=== PATIENT | female | born 1965 | race African-American/Black ===

== ENCOUNTER 2017-12-06 20:09 | Inpatient (IN) | END 2017-12-16 16:55 | disposition home or self-care (01) | DRG 304 ==

== ENCOUNTER 2018-03-16 12:54 | Inpatient (IN) | payer OTHER ==
[~2018-03-16] VITALS: Ht 167.6 cm; Wt 55.0 kg
[~2018-03-16 12:54] MED LIST: BEN25 PO; CALC0.2511 PO; FURO40TA4 PO; LABE100T7 PO; LEVE-5 PO; NIFE30TA2 PO; PANT40TA3 PO; QUET300T2 PO; SEVE800T7 PO
--- NOTE | 2018-03-16 13:00 | ERD ---
ER Documentation Chief Complaint Chief Complaint Abdominal pain HPI 52-year-old female diabetic, hypertensive, hyperlipidemic with history of end- stage renal failure on hemodialysis Thursday/Thursday/Thursday, ascites status post paracentesis yesterday, depression, seizure disorder, ascites status post paracentesis yesterday and gastritis presents to the ED via rescue ambulance complaining of abdominal pain. This is the same pain the patient has been having over the last several weeks. Pain is sharp, crampy and radiates to the back. Diarrhea but no nausea or vomiting. No hematemesis, hematochezia or melena. No relieving or exacerbating factors. Denies chest pain, palpitations or shortness of breath. No leg pain or swelling. No fevers or chills. Patient was hospitalized 03/01/2018 and signed out AGAINST MEDICAL ADVICE this morning. She now returns complaining of worsening pain and wants to be readmitted. ROS All systems reviewed and are negative except as per history of present illness. Medications Home Meds Active Scripts Diphenhydramine Hcl* (Benadryl*) 25 Mg Cap, 25 MG PO Q6H PRN for ITCHING, #30 CAP Prov:BLAKE MORALES 12/10/17 Labetalol Hcl* (Labetalol Hcl*) 100 Mg Tablet, 200 MG PO BID for 30 Days, TAB Prov:BLAKE MORALES 12/10/17 Nifedipine (Procardia Xl) 30 Mg Tab.er.24, 30 MG PO DAILY for 30 Days, TAB Prov:BLAKE MORALES 12/10/17 Sevelamer Carbonate* (Renvela*) 800 Mg Tablet, 1600 MG PO WITH MEALS for 30 Days, TAB Prov:BLAKE MORALES 12/10/17 Reported Medications Calcitriol* (Calcitriol*) 0.25 Mcg Capsule, 0.25 MG PO DAILY for 30 Days TAKE ONE CAPSULE BY MOUTH EVERYDAY 03/01/18 Quetiapine Fumarate* (Seroquel*) 300 Mg Tablet, 300 MG PO DAILY, TAB 12/07/17 Pantoprazole* (Protonix*) 40 Mg Tablet.dr, 40 MG PO AC BREAKFAST, TAB 12/07/17 Furosemide* (Furosemide*) 40 Mg Tablet, 40 MG PO BID, TAB 12/07/17 Levetiracetam* (Keppra*) 500 Mg Tablet, 500 MG PO BID, TAB 12/07/17 Allergies Allergies: Coded Allergies: No Known Allergy (Unverified , 03/16/18) PMhx/Soc Reviewed in chart. As per HPI. History of Surgery: Yes (CS) Anesthesia Reaction: No Hx Neurological Disorder: No Hx Respiratory Disorders: No Hx Cardiac Disorders: Yes (HTN,) Hx Psychiatric Problems: Yes (Bipolar) Hx Miscellaneous Medical Probl: Yes Hx Alcohol Use: No Hx Substance Use: No Hx Tobacco Use: Yes FmHx No family history relevant to presenting complaint Physical Exam Vitals Vital Signs Date Temp Pulse Resp B/P (MAP) Pulse Ox O2 O2 Flow FiO2 Time Delivery Rate 03/16/18 98.2 80 16 168/82 98 12:59 (110) Physical Exam Const: Alert, moderate distress, Ill appearing Head: Atraumatic Eyes: Normal Conjunctiva ENT: Normal External Ears, Nose and Mouth. Neck: Full range of motion. Nontender, no JVD. Resp: Breath sounds are equal and clear to auscultation bilaterally Cardio: Regular rate and rhythm, no murmurs Abd: Soft, diffusely tender but no rebound or guarding. Drainage bag in the right lower quadrant placed post paracentesis for leakage. Skin: No petechiae or rashes Back: No midline or flank tenderness Ext: No cyanosis, or edema. AV shunt LUE with palpable thrill. Neur: Awake and alert. No focal deficit observed. Psych: Anxious, cooperative. Result Diagram: 03/17/18 0629 03/17/18 0629 Results 24 hrs Laboratory Tests Test 03/16/18 13:45 Sodium Level 142 mmol/L Potassium Level 5.2 mmol/L Chloride Level 100 mmol/L Carbon Dioxide Level 30 mmol/L Anion Gap 12 Blood Urea Nitrogen 27 mg/dl Creatinine 3.22 mg/dl Est Glomerular Filtrat Rate mL/min 18 mL/min Glucose Level 123 mg/dl Calcium Level 9.3 mg/dl Total Bilirubin 0.0 mg/dl Direct Bilirubin 0.00 mg/dl Indirect Bilirubin 0.0 mg/dl Aspartate Amino Transf (AST/SGOT) 27 IU/L Alanine Aminotransferase (ALT/SGPT) 18 IU/L Alkaline Phosphatase 152 IU/L Total Protein 6.7 g/dl Albumin 3.2 g/dl Globulin 3.50 g/dl Albumin/Globulin Ratio 0.91 Lipase 420 U/L Current Medications Medications Dose Sig/Rolando Start Time Status Last (Trade) Ordered Route PRN Stop Time Admin Dose Reason Admin 0.4 mg ONCE STAT 03/16/18 DC 03/16/18 Hydromorphone IV 13:22 14:22 HCl 03/16/18 (Dilaudid) 13:30 25 mg ONCE ONCE 03/16/18 DC 03/16/18 Diphenhydrami IV 13:30 14:22 ne HCl 03/16/18 (Benadryl) 13:31 Ondansetron 4 mg BRIDGE ORDER 03/16/18 DC 03/16/18 HCl (Zofran PRN IV 14:00 14:22 Inj) NAUSEA AND/OR 03/16/18 VOMITING 18:25 650 mg ER BRIDGE 03/16/18 DC Acetaminophen PRN PO MILD 14:00 (Tylenol PAIN(1-3)OR 03/17/18 Tab) ELEVATED TEMP 02:33 Procedures/MDM DOCUMENTS REVIEWED: ED nurse, prior ED, prior records IMAGING: Chest AP portable: Cardiac silhouette is normal. The costophrenic angles are clear. Atelectasis at the bases but no effusions or infiltrates. No mediastinal widening. My interpretation. MEDICAL DECISION MAKIN-year-old female diabetic, hypertensive, hyperlipidemic with history of end-stage renal failure on hemodialysis Thursday/Thursday/Thursday, ascites status post paracentesis yesterday, depression, seizure disorder, ascites status post paracentesis yesterday and gastritis presents to the ED via rescue ambulance complaining of abdominal pain. Patient signed out AGAINST MEDICAL ADVICE this morning because she had to go home and take care of her family matter although nursing notation documents that is because she did not receive her Benadryl on time. Nonetheless she is returning now requesting readmission. CBC significant for microcytic, hypochromic anemia but no leukocytosis, consistent with prior results. Chemistry reveals borderline hyperkalemia and stable elevated BUN/CR. LFT's unremarkable. Elevated lipase. Chest x-ray negative for pneumonia, volume overload, pulmonary edema or CHF. This patient has a workup in progress, including GI consultation, hence advanced imaging is deferred. Broad differential is considered but there is no evidence of perforated viscus or acute peritonitis at this time. Pain treated with Dilaudid 0.4 mg IV. Admit to med/surg for further evaluation and management. PATIENT CARE TRANSITIONED: Time: 13:40, Dr. Megan Tinoco Counseled patient regarding diagnosis, diagnostic results and plan for admission. Departure Diagnosis: Primary Impression: Acute generalized abdominal pain Additional Impressions: End stage renal disease on dialysis Ascites Ascites type: other type Qualified Codes: R18.8 - Other ascites Diabetes mellitus type 2 in nonobese Depression Depression Type: unspecified Qualified Codes: F32.9 - Major depressive dis order, single episode, unspecified Hypertension Hypertension type: essential hypertension Qualified Codes: I10 - Essential (primary) hypertension Serum lipase elevation Condition: Serious WILMER KIMBLE MD Mar 16, 2018 13:00
[2018-03-16] MEDS ORDERED: HYDROmorphONE 1 MG/ML SYG IV STA (13:22)
[2018-03-16] MEDS ORDERED: DIPHENHYDRAMINE 50 MG INJ IV ONE (13:30)
[2018-03-16] MEDS ORDERED: ACETAMINOPHEN 325 MG TAB PO PRN (14:00)
[2018-03-16] MEDS ORDERED: ONDANSETRON 4 MG INJ IV PRN (14:00)
[2018-03-16 16:33] VITALS: BP 178/84; PULSE 85; RESP 17
[2018-03-16 17:08] VITALS: Ht 167.6 cm; Wt 55.0 kg
--- NOTE | 2018-03-16 18:24 | NUR ---
Admission orders received from Dr. Tinoco. Patient will be transferred to [facility] for continuity of care. Of note patient left [facility] this morning from [facility] per nurses report [facility] patient was not happy that she could not get her Benadryl. Dr. Tinoco aware that patient will transfer to [facility]
[2018-03-16] MEDS ORDERED: morphine 2 MG INJ IV PRN (18:30)
[2018-03-16 19:37] VITALS: BP 188/78; PULSE 86; RESP 18
[2018-03-16] MEDS: DIPHENHYDRAMINE 50 MG INJ IV PRN (20:04)
--- NOTE | 2018-03-16 20:27 | NUR ---
RN Notes: Called Dr. Tinoco regarding patient's blood pressure of 188/78 TN 86, Dr. Tinoco ordered Clonidine 0.1mg Q6H PRN for SBP > 160. This nurse also asked Dr. Tinoco if he wants to reconcile the home meds, per Dr. Tinoco continue all medication. Patient is also diabetic and got an order for Accucheck ACHS moderate sliding scale. Will continue to monitor patient.
--- NOTE | 2018-03-16 20:45 | NUR ---
RN NOTES: Morphine 2mg IV is on shortage and was informed by pharmacist that it will need to be changed to Morphine liquid. Informed patient about change.
[2018-03-16] MEDS ORDERED: morphine LIQ (10 MG/5 ML) CUP PO PRN (21:00)
[2018-03-16] MEDS ORDERED: LABETALOL 100 MG TAB PO SCH (21:00)
[2018-03-16] MEDS ORDERED: GLUCAGON 1 MG INJ IM PRN (21:30)
[2018-03-16] MEDS ORDERED: GLUCOSE GEL 15 GRAM TUBE BUCCAL PRN (21:30)
[2018-03-16] MEDS ORDERED: GLUCOSE GEL 15 GRAM TUBE PO PRN ×2 (21:30)
[2018-03-16] MEDS ORDERED: DEXTROSE 50% 50 ML SYRINGE IV PRN ×2 (21:30)
[2018-03-16 21:36] VITALS: BP 193/89; PULSE 85; RESP 18
[2018-03-16] MEDS: LABETALOL 200 MG TAB PO SCH (21:46)
[2018-03-16] MEDS: FUROSEMIDE 40 MG TAB PO SCH (21:47)
[2018-03-16] MEDS: LEVETIRACETAM 500 MG TAB PO SCH (21:50)
[2018-03-16] MEDS: INSULIN ASPART [NOVOLOG] 3 ML PEN SC SCH (21:51)
--- NOTE | 2018-03-16 22:20 | NUR ---
Patient still complaining of abdominal pain 12/30, per patient the morphine liquid did not work. Informed Dr. Tinoco and informed him about patient still in pain, Dr. Tinoco ordered Morphine 4mg IV Q4H PRN. Will continue to monitor patient.
[2018-03-16] MEDS ORDERED: morphine 4 MG/ML VIAL IV PRN (22:30)
[2018-03-16] MEDS: ONDANSETRON 4 MG INJ IV PRN (22:40)
[2018-03-16 23:38] VITALS: BP 171/92; PULSE 84; RESP 16
--- NOTE | 2018-03-16 23:52 | NUR ---
RN notes: Patient will be transferred to [facility]. Gave report to AGUSTO Lucia for continuity of care.
[2018-03-17 00:28] VITALS: BP 166/82; PULSE 83; RESP 18
--- NOTE | 2018-03-17 00:32 | NUR ---
Pt arrived on [facility] in no acute distress. Vitals taken BP 166/82 HR 83. Patient oriented to room, bed, and call light. Reiterated the schedule or morphine and benadryl using care board and tool mechanic. Needs attended.
[2018-03-17] MEDS: DIPHENHYDRAMINE 50 MG INJ IV PRN ×3 (02:03→16:43)
[2018-03-17 02:11] VITALS: BP 166/90; PULSE 81; RESP 18
[2018-03-17] MEDS: morphine SULFATE/PF (2 MG/2 ML) SYG IV PRN ×3 (02:44→13:54)
[2018-03-17] MEDS: LOPERAMIDE 2 MG CAP PO PRN (04:01)
[2018-03-17] MEDS: PANTOPRAZOLE (EC) 40 MG TAB PO SCH (06:32)
--- NOTE | 2018-03-17 06:48 | NUR ---
Shift Summary Pt had several episodes of diarrhea during shift. Specimen sent for C diff analysis to lab. Dr. Tinoco was contacted for PRN medication for diarrhea. Order received and carried out. Per Dr. Tinoco, tailing hand will see the patient today to arrange hemodialysis. Patient received IV morphine twice during shift on this unit. Care board updated to reflect changes. Will endorse care to next shift.
[2018-03-17 07:44] VITALS: BP 173/89; PULSE 92; RESP 18
--- NOTE | 2018-03-17 07:52 | CONS ---
Date/Time of Note Date/Time of Note DATE: 03/17/18 TIME: 07:33 Assessment/Plan Assessment/Plan Chief Complaint/Hosp Course 52 yo female with ESRD and diarrhea left AMA 03/16 and returned with abdominal pain. 1. Abdominal pain -lipase mildly elevated 03/16 420 2. Diarrhea -O/P negative. Stool cx pending 3. Mildly elevated lipase with mid abd pain radiating to back 4. Mild generalized small and large bowel wall thickening which per CT 03/01 could represent third spacing. 5. Hemorrhoids per pt 6. Mild hepatomegaly 7. Anemia, acute -Ferritin high, Iron wnl, TIBC low, B12 wnl, folate wnl, FOB negative -no evidence of GI bleeding 8. End stage renal disease on HD 9. Cardiomegaly with mild lower lung pulmonary edema with small left effusion and mild diffuse ascites 10. Anasarca and ascites -03/15 paracentesis removed 2.9 liters 11. Diabetes 12. Hypertension 13. Elevated alk phos Plan: Questran 1 packet QD US of upper abdomen C diff and stool cx Clear liquid diet PPI Monitor LFTS, lipase and amylase Pt examined and plan of care discussed with Dr. Webb Consultation Date/Type/Reason Admit Date/Time Mar 16, 2018 at 14:01 Hx of Present Illness 52 yo female with h/o DM, htn, HLD, ESRD on dialysis, depression, seizure disorder and gastritis left AMA yesterday and returned a few hours later with SOB and abdominal pain. Pt began having diarrhea again 03/15 although it had resolved from initial admission on 03/01. Pt describes her abd pain as sharp and cramping, mid abdomen radiating to her back. This is the same pain she has c/o during her stay before she left AMA. She received paracentesis twice previously (before AMA) for ascites secondary to ESRD. Her LFTs, pancreatic enzymes have been wnl but on return yesterday her lipase is elevated 420, amylase wnl. Alk phos on 03/11 was elevated but came down to wnl until 03/15 it was 158 and now 152. No melena or hematochezia. No N/V. Denies CP. CXR: 1. Scarring or atelectasis at the lung bases with right worse than left. 2. Otherwise unremarkable chest radiograph. CT of abd/pelvis from 03/01: There is cardiomegaly with mild lower lung pulmonary edema along with a small left effusion with mild diffuse ascites and anasarca and this likely represent third spacing of fluid. Mild generalized small and large bowel wall thickening could represent edema related to third spacing. There is a fecal filled colon without obstruction or grossly visible appendicitis. Atherosclerotic disease is present. No renal or ureteral calculi with no evidence of hydronephrosis. Rounded hypodensity in the left upper pole kidney could represent a hemorrhagic cyst and can be correlated with MRI.. Mild hepatomegaly. Past Medical History Medications Current Medications Ondansetron HCl (Zofran Inj) 4 mg Q6H PRN IV NAUSEA AND/OR VOMITING Last administered on 03/16/18at 22:40; Admin Dose 4 MG; Start 03/16/18 at 18:30 Diphenhydramine HCl (Benadryl) 25 mg Q6H PRN IV ITCHING Last administered on 03/17/18at 02:03; Admin Dose 25 MG; Start 03/16/18 at 18:30 Clonidine (Catapres) 0.1 mg Q6H PRN PO ELEVATED BLOOD PRESSURE Last administered on 03/16/18at 21:47; Admin Dose 0.1 MG; Start 03/16/18 at 20:30 Insulin Aspart (Novolog Insulin Pen) NOVOLOG *MODERATE* ALGORITHM WITH MEALS BEDTIME SC ; Start 03/16/18 at 22:00 Calcitriol (Rocaltrol) 0.25 mcg DAILY PO ; Start 03/17/18 at 09:00 Furosemide (Lasix) 40 mg BID PO Last administered on 03/16/18at 21:47; Admin Dose 40 MG; Start 03/16/18 at 21:00 Levetiracetam (Keppra) 500 mg BID PO Last administered on 03/16/18at 21:50; Admin Dose 500 MG; Start 03/16/18 at 21:00 Nifedipine (Procardia Xl) 30 mg DAILY PO ; Start 03/17/18 at 09:00 Pantoprazole (Protonix Tab) 40 mg AC BREAKFAST PO Last administered on 03/17/18at 06:32; Admin Dose 40 MG; Start 03/17/18 at 07:00 Quetiapine Fumarate (Seroquel) 300 mg DAILY PO ; Start 03/17/18 at 09:00 Sevelamer Carbonate (Renvela) 1.6 gm WITH MEALS PO ; Start 03/17/18 at 08:00 Miscellaneous Information 1 ea NOTE XX ; Start 03/16/18 at 21:30 Glucose (Glutose) 15 gm Q15M PRN PO DECREASED GLUCOSE; Start 03/16/18 at 21:30 Glucose (Glutose) 22.5 gm Q15M PRN PO DECREASED GLUCOSE; Start 03/16/18 at 21:30 Dextrose (D50w Syringe) 25 ml Q15M PRN IV DECREASED GLUCOSE; Start 03/16/18 at 21:30 Dextrose (D50w Syringe) 50 ml Q15M PRN IV DECREASED GLUCOSE; Start 03/16/18 at 21:30 Glucagon (Glucagen) 1 mg Q15M PRN IM DECREASED GLUCOSE; Start 03/16/18 at 21:30 Glucose (Glutose) 15 gm Q15M PRN BUCCAL DECREASED GLUCOSE; Start 03/16/18 at 21:30 Labetalol HCl (Normodyne) 200 mg BID PO Last administered on 03/16/18at 21:46; Admin Dose 200 MG; Start 03/16/18 at 22:00 Morphine Sulfate (morphine SULFATE (PF)) 4 mg Q4H PRN IV SEVERE PAIN LEVEL 7-10 Last administered on 03/17/18at 06:29; Admin Dose 4 MG; Start 03/17/18 at 02:00 Loperamide HCl (Imodium Cap) 2 mg Q6H PRN PO diarrhea Last administered on 03/17/18at 04:01; Admin Dose 2 MG; Start 03/17/18 at 03:30 Allergies: Coded Allergies: No Known Allergy (Unverified , 03/16/18) Past Surgical History Past Surgical Hx: other Social History Smoking Status: Former smoker Exam/Review of Systems Vital Signs Vitals Vital Signs Date Temp Pulse Resp B/P (MAP) Pulse Ox O2 O2 Flow FiO2 Time Delivery Rate 03/17/18 98.6 81 18 166/90 98 Room Air 02:11 (115) Exam Constitutional: alert, oriented Psych: no complaints Head: normocephalic Eyes: PERRL ENMT: mucosa pink and moist Respiratory: clear to auscultation, diminished breath sounds Cardiovascular: regular rate and rhythm Gastrointestinal: ascites, distended, tender (mid abdomen) Musculoskeletal: nl gait and stance Neurological: nl mental status Medications Medications Current Medications Ondansetron HCl (Zofran Inj) 4 mg Q6H PRN IV NAUSEA AND/OR VOMITING Last administered on 03/16/18at 22:40; Admin Dose 4 MG; Start 03/16/18 at 18:30 Diphenhydramine HCl (Benadryl) 25 mg Q6H PRN IV ITCHING Last administered on 03/17/18at 02:03; Admin Dose 25 MG; Start 03/16/18 at 18:30 Clonidine (Catapres) 0.1 mg Q6H PRN PO ELEVATED BLOOD PRESSURE Last administered on 03/16/18at 21:47; Admin Dose 0.1 MG; Start 03/16/18 at 20:30 Insulin Aspart (Novolog Insulin Pen) NOVOLOG *MODERATE* ALGORITHM WITH MEALS BEDTIME SC ; Start 03/16/18 at 22:00 Calcitriol (Rocaltrol) 0.25 mcg DAILY PO ; Start 03/17/18 at 09:00 Furosemide (Lasix) 40 mg BID PO Last administered on 03/16/18at 21:47; Admin Dose 40 MG; Start 03/16/18 at 21:00 Levetiracetam (Keppra) 500 mg BID PO Last administered on 03/16/18at 21:50; Admin Dose 500 MG; Start 03/16/18 at 21:00 Nifedipine (Procardia Xl) 30 mg DAILY PO ; Start 03/17/18 at 09:00 Pantoprazole (Protonix Tab) 40 mg AC BREAKFAST PO Last administered on 03/17/18at 06:32; Admin Dose 40 MG; Start 03/17/18 at 07:00 Quetiapine Fumarate (Seroquel) 300 mg DAILY PO ; Start 03/17/18 at 09:00 Sevelamer Carbonate (Renvela) 1.6 gm WITH MEALS PO ; Start 03/17/18 at 08:00 Miscellaneous Information 1 ea NOTE XX ; Start 03/16/18 at 21:30 Glucose (Glutose) 15 gm Q15M PRN PO DECREASED GLUCOSE; Start 03/16/18 at 21:30 Glucose (Glutose) 22.5 gm Q15M PRN PO DECREASED GLUCOSE; Start 03/16/18 at 21:30 Dextrose (D50w Syringe) 25 ml Q15M PRN IV DECREASED GLUCOSE; Start 03/16/18 at 21:30 Dextrose (D50w Syringe) 50 ml Q15M PRN IV DECREASED GLUCOSE; Start 03/16/18 at 21:30 Glucagon (Glucagen) 1 mg Q15M PRN IM DECREASED GLUCOSE; Start 03/16/18 at 21:30 Glucose (Glutose) 15 gm Q15M PRN BUCCAL DECREASED GLUCOSE; Start 03/16/18 at 21:30 Labetalol HCl (Normodyne) 200 mg BID PO Last administered on 03/16/18at 21:46; Admin Dose 200 MG; Start 03/16/18 at 22:00 Morphine Sulfate (morphine SULFATE (PF)) 4 mg Q4H PRN IV SEVERE PAIN LEVEL 7-10 Last administered on 03/17/18at 06:29; Admin Dose 4 MG; Start 03/17/18 at 02:00 Loperamide HCl (Imodium Cap) 2 mg Q6H PRN PO diarrhea Last administered on 03/17/18at 04:01; Admin Dose 2 MG; Start 03/17/18 at 03:30 ROBERT GOODRICH Mar 17, 2018 07:43
[2018-03-17] MEDS: INSULIN ASPART [NOVOLOG] 3 ML PEN SC SCH ×4 (08:00→20:37)
[2018-03-17] MEDS: CALCITRIOL 0.25 MCG CAP PO SCH (08:24)
[2018-03-17] MEDS: NIFEdipine (XL) 30 MG TAB PO SCH (08:24)
[2018-03-17] MEDS: LEVETIRACETAM 500 MG TAB PO SCH ×2 (08:24→20:36)
[2018-03-17] MEDS: LABETALOL 200 MG TAB PO SCH ×2 (08:24→20:36)
[2018-03-17] MEDS: SEVELAMER CARBONATE 0.8 GM PKT PO SCH ×3 (08:25→17:08)
[2018-03-17] MEDS: FUROSEMIDE 40 MG TAB PO SCH ×2 (08:25→20:37)
[2018-03-17] MEDS: QUETIAPINE 100 MG TAB PO SCH (08:25)
--- NOTE | 2018-03-17 10:51 | NUR ---
Dialysis Confirmation: Spoke with Eva at [facility]; Confirmation # [id number]
--- NOTE | 2018-03-17 11:34 | PN ---
DATE: 03/17/2018 SUBJECTIVE: The patient yesterday was discharged however was readmitted in the evening due to abdomi nal pain. The patient is currently stable, receiving pain medications. No other events noted. OBJECTIVE: VITAL SIGNS: Blood pressure is 173/89, respiration 18, pulse 92, temperature 98.9. HEENT: Head is normocephalic. NECK: Supple. HEART: Regular rate. LUNGS: Show diminished breath sounds at base. ABDOMEN: Soft, nontender to palpation. No rebound or guarding. EXTREMITIES: Negative for clubbing, cyanosis, no edema. DERMATOLOGIC: No rashes. MUSCULOSKELETAL: No joint effusion. NEUROLOGIC: No change in exam. MEDICATIONS: Have been reviewed. LABORATORY DATA: Has been reviewed. Patient has sodium 141, potassium 5.9, BUN 32, creatinine 4.26. ASSESSMENT AND PLAN: 1. End stage renal disease. Plan is for dialysis today. We will dialyze for 3 hours 2k bath, calci um 2.5. 2. Hyperkalemia. Continue dialysis on low potassium bath. 3. Volume overload, improved. Continue ultrafiltration dialysis. 4. Ascites. The patient is status post paracentesis. Continue to monitor. Follow up with GI. 5. Diabetes. Continue current insulin regimen. 6. Anemia. Continue to monitor hemoglobin and hematocrit levels. 7. Mineral bone disorder, monitor calcium and phosphorus levels. 8. Encephalopathy, resolved. 9. Seizure disorder. Continue Keppra. 10. Hypertension. Continue current blood pressure regimen. 11. Gastritis. Continue proton pump inhibitor. 12. Anxiety disorder. Dictated By: SHILO REICH/NTS Conf#: [id number] DID#: [id number] CC: JF KAISER MD;*EndCC*
--- NOTE | 2018-03-17 12:07 | HP ---
Date/Time of Note Date/Time of Note DATE: 03/17/18 TIME: 12:02 Assessment/Plan VTE Prophylaxis Risk [place] [facility] [place] risk: 2 SCD applied (from [facility] [place] No SCD contraindicated: other Pharmacological prophylaxis: LMWH Lines/Catheters IV Catheter Type (from [facility]): Saline Lock Urinary Cath still in place: No Assessment/Plan Hospital Course 1) fluid overload - related to renal failure 2) renal failure - hemodialysis per nephrology 3) abdominal pain - work up and treatment per GI 4) diabetes - monitor blood sugar, insulin coverage as needed Result Diagram: 03/17/18 0629 03/17/18628 Results 24hrs Laboratory Tests Test 03/16/18 13:45 03/16/18 14:08 03/16/18 21:51 03/17/18 06:29 Sodium Level 142 141 Potassium Level 5.2 H 5.9 H Chloride Level 100 101 Carbon Dioxide 30 27 Level Anion Gap 12 13 Blood Urea 27 H 32 H Nitrogen Creatinine 3.22 H 4.26 #H Est Glomerular 18 L 13 L Filtrat Rate mL/min Glucose Level 123 108 Calcium Level 9.3 9.1 Total Bilirubin 0.0 L Direct Bilirubin 0.00 Indirect 0.0 Bilirubin Aspartate Amino 27 Transf (AST/SGOT ) Alanine 18 Aminotransferase (ALT/SGPT) Alkaline 152 H Phosphatase Total Protein 6.7 Albumin 3.2 L Globulin 3.50 H Albumin/Globulin 0.91 Ratio Lipase 420 H White Blood 7.6 11.5 #H Count Red Blood Count 3.66 L 3.36 L Hemoglobin 9.4 L 8.4 L Hematocrit 29.7 L 27.2 L Mean Corpuscular 81.1 L 81.0 L Volume Mean Corpuscular 25.7 L 25.0 L Hemoglobin Mean Corpuscular 31.6 L 30.9 L Hemoglobin Shannan nt Red Cell 18.7 H 18.6 H Distribution Width Platelet Count 303 321 Mean Platelet 8.9 9.5 Volume Immature 0.100 0.400 Granulocytes % Neutrophils % 65.3 82.1 H Lymphocytes % 18.9 8.9 L Monocytes % 10.9 6.6 Eosinophils % 3.2 1.6 Basophils % 1.6 0.4 Nucleated Red 0.0 0.0 Blood Cells % Immature 0.010 0.050 H Granulocytes # Neutrophils # 4.9 9.5 H Lymphocytes # 1.4 1.0 Monocytes # 0.8 0.8 Eosinophils # 0.2 0.2 Basophils # 0.1 0.1 Nucleated Red 0.0 0.0 Blood Cells # Bedside Glucose 98 Test 03/17/18 08:22 Bedside Glucose 114 HPI/ROS Admit Date/Time Admit Date/Time Mar 16, 2018 at 14:01 Hx of Present Illness Patient with diabetes, seizure disorder, renal failure, gastritis is here after leaving AMA from the hospital just hours earlier with the same complaints of abdominal pain and fluid overload. PMH/Family/Social Past Medical History Medical History: coronary artery disease, diabetes, GERD, hypertension, renal disease Medications Current Medications Ondansetron HCl (Zofran Inj) 4 mg Q6H PRN IV NAUSEA AND/OR VOMITING Last administered on 03/16/18 22:40; Admin Dose 4 MG; Start 03/16/18 at 18:30 Diphenhydramine HCl (Benadryl) 25 mg Q6H PRN IV ITCHING Last administered on 03/17/18 08:23; Admin Dose 25 MG; Start 03/16/18 at 18:30 Clonidine (Catapres) 0.1 mg Q6H PRN PO ELEVATED BLOOD PRESSURE Last administered on 03/16/18 21:47; Admin Dose 0.1 MG; Start 03/16/18 at 20:30 Insulin Aspart (Novolog Insulin Pen) NOVOLOG *MODERATE* ALGORITHM WITH MEALS BEDTIME SC ; Start 03/16/18 at 22:00 Calcitriol (Rocaltrol) 0.25 mcg DAILY PO Last administered on 03/17/18 08:24; Admin Dose 0.25 MCG; Start 03/17/18 at 09:00 Furosemide (Lasix) 40 mg BID PO Last administered on 03/17/18 08:25; Admin Dose 40 MG; Start 03/16/18 at 21:00 Levetiracetam (Keppra) 500 mg BID PO Last administered on 03/17/18 08:24; Admin Dose 500 MG; Start 03/16/18 at 21:00 Nifedipine (Procardia Xl) 30 mg DAILY PO Last administered on 03/17/18 08:24; Admin Dose 30 MG; Start 03/17/18 at 09:00 Pantoprazole (Protonix Tab) 40 mg AC BREAKFAST PO Last administered on 03/17/18at 06:32; Admin Dose 40 MG; Start 03/17/18 at 07:00 Quetiapine Fumarate (Seroquel) 300 mg DAILY PO Last administered on 03/17/18at 08:25; Admin Dose 300 MG; Start 03/17/18 at 09:00 Sevelamer Carbonate (Renvela) 1.6 gm WITH MEALS PO Last administered on 03/17/18at 08:25; Admin Dose 1.6 GM; Start 03/17/18 at 08:00 Miscellaneous Information 1 ea NOTE XX ; Start 03/16/18 at 21:30 Glucose (Glutose) 15 gm Q15M PRN PO DECREASED GLUCOSE; Start 03/16/18 at 21:30 Glucose (Glutose) 22.5 gm Q15M PRN PO DECREASED GLUCOSE; Start 03/16/18 at 21:30 Dextrose (D50w Syringe) 25 ml Q15M PRN IV DECREASED GLUCOSE; Start 03/16/18 at 21:30 Dextrose (D50w Syringe) 50 ml Q15M PRN IV DECREASED GLUCOSE; Start 03/16/18 at 21:30 Glucagon (Glucagen) 1 mg Q15M PRN IM DECREASED GLUCOSE; Start 03/16/18 at 21:30 Glucose (Glutose) 15 gm Q15M PRN BUCCAL DECREASED GLUCOSE; Start 03/16/18 at 21:30 Labetalol HCl (Normodyne) 200 mg BID PO Last administered on 03/17/18at 08:24; Admin Dose 200 MG; Start 03/16/18 at 22:00 Morphine Sulfate (morphine SULFATE (PF)) 4 mg Q4H PRN IV SEVERE PAIN LEVEL 7-10 Last administered on 03/17/18at 06:29; Admin Dose 4 MG; Start 03/17/18 at 02:00 Loperamide HCl (Imodium Cap) 2 mg Q6H PRN PO diarrhea Last administered on 03/17/18at 04:01; Admin Dose 2 MG; Start 03/17/18 at 03:30 Cholestyramine Resin (Questran) 1 pkt DAILY PO ; Start 03/17/18 at 09:00 Coded Allergies: No Known Allergy (Unverified , 03/16/18) Past Surgical History Past Surgical Hx: other Family History Significant Family History: no pertinent family hx Social History Smoking Status: Former smoker Exam/Review of Systems Vital Signs Vitals Vital Signs Date Temp Pulse Resp B/P (MAP) Pulse Ox O2 O2 Flow FiO2 Time Delivery Rate 03/17/18 98.9 92 18 173/89 98 Room Air 07:44 (117) Exam Constitutional: well developed Head: normocephalic, atraumatic Neck: supple Respiratory: diminished breath sounds Cardiovascular: regular rate and rhythm Gastrointestinal: soft, non-tender Genitourinary - Female: nl adnexae Extremities: normal pulses JF KAISER Mar 17, 2018 12:07
[2018-03-17 14:00] VITALS: BP 140/75; PULSE 85; RESP 20
[2018-03-17] MEDS: ACETAMINOPHEN 325 MG TAB PO PRN (14:02)
--- NOTE | 2018-03-17 16:15 | NUR ---
SS NOTE: ATTEMPTED TO SEE PT SW REFERRED TO PT REGARDING NONCOMPLIANCE ISSUES/PREVIOUSLY LEAVING [facility]. SW ATTEMPTED TO MEET WITH PT FOR ASSESSMENT. PT DID NOT WANT TO SPEAK TO THIS PRE ALGEBRA TEACHER AT THIS TIME DUE TO PAIN ISSUES. PT REQUESTED TO SEE SW AT LATER TIME TOMORROW. PLAN IS TO MEET WITH PT WHEN APPROPRIATE. SW REMAINS AVAILABLE FOR F/U NEEDED.
[2018-03-17] MEDS: CHOLESTYRAMINE 4 GM PACKET PO SCH (17:08)
--- NOTE | 2018-03-17 18:30 | NUR ---
RE: Dialysis Access: sr. strategic sourcing manager went to start hemodialysis treatment, upon assessment patient's AV Fistula in [facility] is now clotted. Martines (Abby), AGUSTO notified Dr. Gates of patient's status. Order received and carried out.
--- NOTE | 2018-03-17 18:45 | NUR ---
End of Shift Summary: Patient is alert & orientated x 4, vital signs stable, no signs of acute distress. Patient c/o pain in abd, providing pain med prn, pt requesting q4h as ordered. Patient treated for ascites s/p paracentesis 03/15. Patient is dialysis patient, MD aware patient was not able to have hemodialysis today due to clotted AV fistula. Orders received and carried out, will endorse to oncoming shift to follow up with Dr. Bledsoe tomorrow regarding access. Patient has Accu checks AC/HS, insulin coverage per sliding scale. Patient instructed to call for assistance, rounded on hourly, will continue to monitor patient status.
[2018-03-17] MEDS ORDERED: BUMETANIDE 1 MG INJ IV ONE (19:00)
[2018-03-17] MEDS ORDERED: BUMETANIDE 2 MG in DEXTROSE 5% 17 ML IV ONE (19:00)
[2018-03-17] MEDS ORDERED: NA POLYST SULFON 15 GM/60 ML BTL PO ONE (19:30)
[2018-03-17 19:53] VITALS: BP 153/85; PULSE 90; RESP 17
--- NOTE | 2018-03-17 21:00 | NUR ---
IV Line During change of shift, we noticed peripheral IV came out. Pt is a hard stick. Attempted to insert new IV at 1938. Unsuccessful attempts X2. Called RN on different floor to attempt IV. Waiting on IV access to give Bumex IV medication and pain meds. Addendum: 03/18/18 at 0031 by ALPHONSE OCAMPO RN AGUSTO Flowers from [facility] came to attempt to do peripheral IV. RN unsuccessful. Notifed Dr. Hay received order for midline. Midline done by AGUSTO Hough from .
[2018-03-18] VITALS (14 sets, daily range): BP systolic 140–198; BP diastolic 72–96; PULSE 75–93; RESP 17–20
[2018-03-18] MEDS: morphine SULFATE/PF (2 MG/2 ML) SYG IV PRN ×4 (00:31→21:45)
[2018-03-18] MEDS: DIPHENHYDRAMINE 50 MG INJ IV PRN ×2 (00:37→05:37)
[2018-03-18] MEDS: ACETAMINOPHEN 325 MG TAB PO PRN (03:12)
--- NOTE | 2018-03-18 03:12 | NUR ---
100.4 TEMP Gave tylenol 650MG for elevated temperature. Provided cooling measures. Will continue to monitor.
--- NOTE | 2018-03-18 06:02 | NUR ---
EOSS Pt A&OX4. BP high. Gave PRN antihypertensive meds. Accuchecks done. No coverage required. All due meds given. Pt c/o 10 pain. Pain meds given. Pt c/o tchiness. Benadryl given. Potassium level high at start of shift. Administered kayexalate. Labs drawn one hour later. Received critical lab value for potassium. Notified MD. No new orders. AV fistula in left arm has no bruit or thrill. MD aware. Peripheral IV came off. Made multiple attempts to insert new IV with other nurses. Not successful. Received order for midline. Pt had midline inserted in ER. Midline had blood return and 5cm out at time of insertion. After using midline, midline has resistance when flushing. Hourly rounding done. All needs met and attended to. Bed left in lowest position with bed alarm on. Call light left within reach. Pt has not yet had a BM. Waiting for BM for feces culture.
[2018-03-18] MEDS: PANTOPRAZOLE (EC) 40 MG TAB PO SCH (06:27)
[2018-03-18] MEDS: INSULIN ASPART [NOVOLOG] 3 ML PEN SC SCH ×4 (08:00→21:00)
--- NOTE | 2018-03-18 08:00 | PN ---
Date/Time of Note Date/Time of Note DATE: 03/18/18 TIME: 07:56 Assessment/Plan VTE Prophylaxis Risk score (from Nsg)>0 risk: 2 SCD applied (from Ns): No SCD contraindicated: low risk/ambulating Pharmacological prophylaxis: NA/contraindicated Pharm contraindication: low risk/ambulating Lines/Catheters [facility]from [facility] Mid Line Urinary Cath still in place: No Assessment/Plan Hospital Course 52 yo female with ESRD and diarrhea left AMA 03/16 and returned with abdominal pain. 1. Abdominal pain -lipase mildly elevated 03/16 420 2. Diarrhea -O/P negative. C diff negative 3. Mildly elevated lipase with mid abd pain radiating to back 4. Mild generalized small and large bowel wall thickening which per CT 03/01 could represent third spacing. 5. Hemorrhoids per pt 6. Mild hepatomegaly 7. Anemia, acute -Ferritin high, Iron wnl, TIBC low, B12 wnl, folate wnl, FOB negative -no evidence of GI bleeding 8. End stage renal disease on HD 9. Cardiomegaly with mild lower lung pulmonary edema with small left effusion and mild diffuse ascites 10. Anasarca and ascites -03/15 paracentesis removed 2.9 liters 11. Diabetes 12. Hypertension 13. Elevated alk phos 14. Mildly dilated biliary system with CBD measuring 9mm 15. Liver disease likely MRCP 03/18: 1. Enlarged liver with suggestion of mild liver surface nodularity. Chronic hepatic parenchymal disease is suspected. Diffusely decreased T2 signal intensity of the liver and spleen can represent hemosiderin deposition likely in the setting of secondary hemochromatosis. 2. Large volume ascites. 3. Wall thickening of the gallbladder without gallstones. This likely relates to presence of large volume ascites. 4. Wall thickening of multiple loops of small bowel may also relate to presence of ascites. 5. No intrahepatic biliary ductal dilatation. Mild extrahepatic biliary ductal dilatation measuring up to 10 mm in the mid common bile duct with gradual distal tapering. No filling defects along the course of the common bile duct within the limitations of this exam to represent choledocholithiasis. Plan: MRCP Questran 1 packet QD Clear liquid diet PPI Monitor LFTS, lipase and amylase, pending this morning Pt examined and plan of care discussed with Dr. Webb Result Diagram: 03/17/18 0629 03/17/18 2243 Results 24hrs Laboratory Tests Test 03/17/18 08:22 03/17/18 13:51 03/17/18 17:07 03/17/18 20:34 Bedside Glucose 114 89 85 83 Test 03/17/18 22:43 Potassium Level 6.1 *H Subjective 24 Hr Interval Summary Free Text/Dictation Pt continues to intermittent abdominal pain. No N/V. Denies diarrhea. Was unable to receive HD yesterday. CBD on US measures 9mm. Exam/Review of Systems Vital Signs Vitals Vital Signs Date Temp Pulse Resp B/P (MAP) Pulse Ox O2 O2 Flow FiO2 Time Delivery Rate 03/18/18 99.2 84 180/72 04:22 (108) 03/18/18 17 97 02:00 03/17/18 Room Air 19:53 Intake and Output 03/17/18 03/17/18 03/18/18 1515:00 23:00 07:00 IntakeIntake Total 325 ml OutputOutput Total 300 ml BalanceBalance 25 ml Exam Constitutional: alert, oriented Psych: no complaints Head: normocephalic Eyes: PERRL ENMT: mucosa pink and moist Respiratory: clear to auscultation Cardiovascular: regular rate and rhythm Gastrointestinal: soft, distended, tender Neurological: nl mental status Medications Medications Current Medications Ondansetron HCl (Zofran Inj) 4 mg Q6H PRN IV NAUSEA AND/OR VOMITING Last administered on 03/16/18at 22:40; Admin Dose 4 MG; Start 03/16/18 at 18:30 Diphenhydramine HCl (Benadryl) 25 mg Q6H PRN IV ITCHING Last administered on 03/18/18at 05:37; Admin Dose 25 MG; Start 03/16/18 at 18:30 Clonidine (Catapres) 0.1 mg Q6H PRN PO ELEVATED BLOOD PRESSURE Last administered on 03/18/18at 02:50; Admin Dose 0.1 MG; Start 03/16/18 at 20:30 Insulin Aspart (Novolog Insulin Pen) NOVOLOG *MODERATE* ALGORITHM WITH MEALS BEDTIME SC ; Start 03/16/18 at 22:00 Calcitriol (Rocaltrol) 0.25 mcg DAILY PO Last administered on 03/17/18at 08:24; Admin Dose 0.25 MCG; Start 03/17/18 at 09:00 Furosemide (Lasix) 40 mg BID PO Last administered on 03/17/18at 20:37; Admin Dose 40 MG; Start 03/16/18 at 21:00 Levetiracetam (Keppra) 500 mg BID PO Last administered on 03/17/18at 20:36; Admin Dose 500 MG; Start 03/16/18 at 21:00 Nifedipine (Procardia Xl) 30 mg DAILY PO Last administered on 03/17/18at 08:24; Admin Dose 30 MG; Start 03/17/18 at 09:00 Pantoprazole (Protonix Tab) 40 mg AC BREAKFAST PO Last administered on 1 05/19/17at 06:27; Admin Dose 40 MG; Start 03/17/18 at 07:00 Quetiapine Fumarate (Seroquel) 300 mg DAILY PO Last administered on 03/17/18at 08:25; Admin Dose 300 MG; Start 03/17/18 at 09:00 Sevelamer Carbonate (Renvela) 1.6 gm WITH MEALS PO Last administered on 03/17/18at 17:08; Admin Dose 1.6 GM; Start 03/17/18 at 08:00 Miscellaneous Information 1 ea NOTE XX ; Start 03/16/18 at 21:30 Glucose (Glutose) 15 gm Q15M PRN PO DECREASED GLUCOSE; Start 03/16/18 at 21:30 Glucose (Glutose) 22.5 gm Q15M PRN PO DECREASED GLUCOSE; Start 03/16/18 at 21:30 Dextrose (D50w Syringe) 25 ml Q15M PRN IV DECREASED GLUCOSE; Start 03/16/18 at 21:30 Dextrose (D50w Syringe) 50 ml Q15M PRN IV DECREASED GLUCOSE; Start 03/16/18 at 21:30 Glucagon (Glucagen) 1 mg Q15M PRN IM DECREASED GLUCOSE; Start 03/16/18 at 21:30 Glucose (Glutose) 15 gm Q15M PRN BUCCAL DECREASED GLUCOSE; Start 03/16/18 at 21:30 Labetalol HCl (Normodyne) 200 mg BID PO Last administered on 03/17/18at 20:36; Admin Dose 200 MG; Start 03/16/18 at 22:00 Morphine Sulfate (morphine SULFATE (PF)) 4 mg Q4H PRN IV SEVERE PAIN LEVEL 7-10 Last administered on 03/18/18 04:23; Admin Dose 4 MG; Start 03/17/18 at 02:00 Loperamide HCl (Imodium Cap) 2 mg Q6H PRN PO diarrhea Last administered on 03/17/18 04:01; Admin Dose 2 MG; Start 03/17/18 at 03:30 Cholestyramine Resin (Questran) 1 pkt DAILY PO Last administered on 03/17/18 17:08; Admin Dose 1 PKT; Start 03/17/18 at 09:00 Acetaminophen (Tylenol Tab) 650 mg Q6H PRN PO MILD PAIN(1-3)OR ELEVATED TEMP Last administered on 03/18/18 03:12; Admin Dose 650 MG; Start 03/17/18 at 14:00 Hydralazine HCl (Apresoline) 25 mg Q6H PRN PO ELEVATED SYSTOLIC BP Last administered on 03/18/18 05:39; Admin Dose 25 MG; Start 03/18/18 at 05:30 ROBERT GOODRICH Mar 18, 2018 08:00
[2018-03-18] MEDS: SEVELAMER CARBONATE 0.8 GM PKT PO SCH ×3 (08:14→18:03)
[2018-03-18] MEDS: LOPERAMIDE 2 MG CAP PO PRN (08:15)
[2018-03-18] MEDS: QUETIAPINE 100 MG TAB PO SCH (08:15)
[2018-03-18] MEDS: LEVETIRACETAM 500 MG TAB PO SCH (08:15)
[2018-03-18] MEDS: CALCITRIOL 0.25 MCG CAP PO SCH (08:15)
[2018-03-18] MEDS: CHOLESTYRAMINE 4 GM PACKET PO SCH (08:15)
[2018-03-18] MEDS: NIFEdipine (XL) 30 MG TAB PO SCH (08:16)
[2018-03-18] MEDS: FUROSEMIDE 40 MG TAB PO SCH (08:16)
[2018-03-18] MEDS: LABETALOL 200 MG TAB PO SCH (08:21)
--- NOTE | 2018-03-18 09:30 | PN ---
DATE: 03/18/2018 SUBJECTIVE: The patient yesterday was unable to do hemodialysis due to a clotted access. The patien t was given Kayexalate for hypokalemia. No other events noted. OBJECTIVE: VITAL SIGNS: Blood pressure is 168/85, respirations 18, pulse 75, temperature 98.7. HEENT: Head is normocephalic. NECK: Supple. HEART: Regular rate. LUNGS: Show diminished breath sounds at the base. ABDOMEN: Soft, nontender to palpation without rebound or guarding. EXTREMITIES: Negative for clubbing, cyanosis. Positive edema. DERMATOLOGIC: No rashes. MUSCULOSKELETAL: No joint effusion. NEUROLOGIC: No change in exam. MEDICATIONS: Reviewed. LABORATORY DATA: From this morning is currently pending. ASSESSMENT AND PLAN: 1. End stage renal disease. Patient with clotted AV fistula. Plan is to have a vascular surgery ev aluation. We will also have urgent Petros catheter placement today. Once the catheter is placed, t he patient will have hemodialysis. Will monitor closely. 2. Hyperkalemia. The patient is status post Kayexalate. Will follow potassium level and anticipate hemodialysis once access is obtained. 3. Volume overload. Continue ultrafiltration dialysis. 4. Ascites. The patient is status post paracentesis. Continue to monitor. 5. Diabetes. Continue insulin regimen. 6. Anemia. Continue to monitor hemoglobin and hematocrit levels. 7. Mineral bone disorder, monitor calcium and phosphorus levels. 8. Encephalopathy, resolved. 9. Seizure disorder. Continue Keppra. 10. Hypertension. Continue current blood pressure regimen. 11. Gastritis. Continue proton pump inhibitor. Dictated By: SHILO REICH/ANTONINO Conf#: [id number] DID#: [id number] CC: JF KAISER MD;*EndCC*
--- NOTE | 2018-03-18 12:37 | PN ---
Date/Time of Note Date/Time of Note DATE: 03/18/18 TIME: 12:37 Assessment/Plan VTE Prophylaxis Risk score (from Ns)>0 risk: 2 SCD applied (from Ns): No SCD contraindicated: other Pharmacological prophylaxis: LMWH Lines/Catheters IV Catheter Type (from Nrsg): Mid Line Urinary Cath still in place: No Assessment/Plan Hospital Course 1) fluid overload - related to renal failure 2) renal failure - hemodialysis per nephrology 3) abdominal pain - work up and treatment per GI 4) diabetes - monitor blood sugar, insulin coverage as needed Result Diagram: 03/17/18 0629 03/17/18 2243 Results 24hrs Laboratory Tests Test 03/17/18 13:51 03/17/18 17:07 03/17/18 20:34 03/17/18 22:43 Bedside Glucose 89 85 83 Potassium Level 6.1 *H Test 03/18/18 08:14 03/18/18 12:24 Bedside Glucose 72 93 Subjective 24 Hr Interval Summary Free Text/Dictation Patient has no complaints Exam/Review of Systems Vital Signs Vitals Vital Signs Date Temp Pulse Resp B/P (MAP) Pulse Ox O2 O2 Flow FiO2 Time Delivery Rate 03/18/18 98.7 75 18 168/85 90 Room Air 08:00 (112) Intake and Output 03/17/18 03/17/18 03/18/18 1515:00 23:00 07:00 IntakeIntake Total 325 ml OutputOutput Total 300 ml BalanceBalance 25 ml Exam Constitutional: well developed Head: normocephalic, atraumatic Neck: supple Respiratory: diminished breath sounds Cardiovascular: regular rate and rhythm Gastrointestinal: soft, non-tender Extremities: normal pulses Medications Medications Current Medications Ondansetron HCl (Zofran Inj) 4 mg Q6H PRN IV NAUSEA AND/OR VOMITING Last administered on 03/16/18at 22:40; Admin Dose 4 MG; Start 03/16/18 at 18:30 Diphenhydramine HCl (Benadryl) 25 mg Q6H PRN IV ITCHING Last administered on 03/18/18at 05:37; Admin Dose 25 MG; Start 03/16/18 at 18:30 Clonidine (Catapres) 0.1 mg Q6H PRN PO ELEVATED BLOOD PRESSURE Last administered on 03/18/18at 02:50; Admin Dose 0.1 MG; Start 03/16/18 at 20:30 Insulin Aspart (Novolog Insulin Pen) NOVOLOG *MODERATE* ALGORITHM WITH MEALS BEDTIME SC ; Start 03/16/18 at 22:00 Calcitriol (Rocaltrol) 0.25 mcg DAILY PO Last administered on 03/18/18at 08:15; Admin Dose 0.25 MCG; Start 03/17/18 at 09:00 Furosemide (Lasix) 40 mg BID PO Last administered on 03/18/18at 08:16; Admin Dose 40 MG; Start 03/16/18 at 21:00 Levetiracetam (Keppra) 500 mg BID PO Last administered on 03/18/18at 08:15; Admin Dose 500 MG; Start 03/16/18 at 21:00 Nifedipine (Procardia Xl) 30 mg DAILY PO Last administered on 03/18/18at 08:16; Admin Dose 30 MG; Start 03/17/18 at 09:00 Pantoprazole (Protonix Tab) 40 mg AC BREAKFAST PO Last administered on 03/18/18at 06:27; Admin Dose 40 MG; Start 03/17/18 at 07:00 Quetiapine Fumarate (Seroquel) 300 mg DAILY PO Last administered on 03/18/18at 08:15; Admin Dose 300 MG; Start 03/17/18 at 09:00 Sevelamer Carbonate (Renvela) 1.6 gm WITH MEALS PO Last administered on 03/18/18at 12:28; Admin Dose 1.6 GM; Start 03/17/18 at 08:00 Miscellaneous Information 1 ea NOTE XX ; Start 03/16/18 at 21:30 Glucose (Glutose) 15 gm Q15M PRN PO DECREASED GLUCOSE; Start 03/16/18 at 21:30 Glucose (Glutose) 22.5 gm Q15M PRN PO DECREASED GLUCOSE; Start 03/16/18 at 21:30 Dextrose (D50w Syringe) 25 ml Q15M PRN IV DECREASED GLUCOSE; Start 03/16/18 at 21:30 Dextrose (D50w Syringe) 50 ml Q15M PRN IV DECREASED GLUCOSE; Start 03/16/18 at 21:30 Glucagon (Glucagen) 1 mg Q15M PRN IM DECREASED GLUCOSE; Start 03/16/18 at 21:30 Glucose (Glutose) 15 gm Q15M PRN BUCCAL DECREASED GLUCOSE; Start 03/16/18 at 21:30 Labetalol HCl (Normodyne) 200 mg BID PO Last administered on 03/18/18 08:21; Admin Dose 200 MG; Start 03/16/18 at 22:00 Morphine Sulfate (morphine SULFATE (PF)) 4 mg Q4H PRN IV SEVERE PAIN LEVEL 7-10 Last administered on 03/18/18 08:17; Admin Dose 4 MG; Start 03/17/18 at 02:00 Loperamide HCl (Imodium Cap) 2 mg Q6H PRN PO diarrhea Last administered on 03/18/18 08:15; Admin Dose 2 MG; Start 03/17/18 at 03:30 Cholestyramine Resin (Questran) 1 pkt DAILY PO Last administered on 03/18/18at 08:15; Admin Dose 1 PKT; Start 03/17/18 at 09:00 Acetaminophen (Tylenol Tab) 650 mg Q6H PRN PO MILD PAIN(1-3)OR ELEVATED TEMP Last administered on 03/18/18 03:12; Admin Dose 650 MG; Start 03/17/18 at 14:00 Hydralazine HCl (Apresoline) 25 mg Q6H PRN PO ELEVATED SYSTOLIC BP Last administered on 03/18/18at 05:39; Admin Dose 25 MG; Start 03/18/18 at 05:30 JF KAISER Mar 18, 2018 12:37
--- NOTE | 2018-03-18 15:05 | NUR ---
Channing came and asked if Dr Anguiano hasplaced the jericho cath. He called or and spoke with him. He said will come in the unit to do the procedure. Also label remover failed to draw blood and will come later to try again.Primary RN aware
--- NOTE | 2018-03-18 15:33 | NUR ---
NON -TUNNELED CVC- THIS NURSE SPOKE WITH PT'S PRIMARY NURSE REGARDING INSERTION OF LOURDES CATH FOR DIALYSIS. DR. SANTOS NOTIFIED THIS AM FOR VASCULAR CONSULT REGARDING INSERTION OF BEDSIDE LOURDES. THIS IS FOLLOW UP TO THIS AM REQUEST FOR VASCULAR CONSULT. THIS NURSE NOTIFIED DR SANTOS'S OFFICE REGARDING CONSULT ON THIS PT. OFFICE STAFF AT DR SANTOS'S OFFICE INFORMED ME THAT DR. SANTOS IS AWARE OF CONSULT, AND IS IN SURGERY AT THIS TIME, BUT THAT OFFICE STAFF WILL REMIND HIM AGAIN OF CONSULT ON PT. CHARGE NURSE ON NOTIFIED OF INFORMATION.
[2018-03-18] MEDS ORDERED: MIDAZOLAM 1 MG/ML 2 ML INJ ONE (16:18)
[2018-03-18] MEDS ORDERED: FENTAnyl 50 MCG/ML VIAL ONE (16:18)
--- NOTE | 2018-03-18 18:33 | NUR ---
END OF SHIFT SUMMARY Pt alert, laying in bed. Pt continues on a full liquid diet. Fistula site was not working; no bruit or thrill heard. MD ordered to place Petros cath. Petros cath placed at IJ site. MRI of abdomen done. Pt remains with midline with minimal resistance. Dialysis to be done tonight, called and received confirmation #[id number] Will continue to monitor pt and endorse new plan of care to oncoming shift.
--- NOTE | 2018-03-18 21:30 | NUR ---
2145 Hemodialysis began per Carlos. All oral medication held until after HD. Pt given morphine IV for pain. 0130 HD completed and 1L taken out.
[2018-03-19] VITALS (23 sets, daily range): BP systolic 137–197; BP diastolic 60–87; PULSE 74–95; RESP 14–21
[2018-03-19] MEDS: DIPHENHYDRAMINE 50 MG INJ IV PRN ×3 (00:29→22:37)
[2018-03-19] MEDS: HEPARIN 1000 UNITS/ML 10 ML INJ CATHETER SCH (01:28)
[2018-03-19] MEDS: LABETALOL 200 MG TAB PO SCH ×3 (01:49→20:46)
[2018-03-19] MEDS: LEVETIRACETAM 500 MG TAB PO SCH ×3 (01:50→20:45)
[2018-03-19] MEDS: FUROSEMIDE 40 MG TAB PO SCH ×3 (01:50→20:46)
[2018-03-19] MEDS: morphine SULFATE/PF (2 MG/2 ML) SYG IV PRN ×3 (02:42→22:32)
[2018-03-19] MEDS: PANTOPRAZOLE (EC) 40 MG TAB PO SCH (06:06)
--- NOTE | 2018-03-19 06:13 | NUR ---
END OF SHIFT REPORT Pt alert and oriented x3. Pt on bed in low position with call light within reach and bed alarm activated. Pt ambulates to bathroom with assist. Pt with no bowel movement during shift. Unable to collect stool for feces culture. Pt with abdominal and back pain. Pain meds administered per order. Pt NPO for thrombectomy of LUE AVF per Dr. Anguiano. Consent signed and placed in chart. Pt with pain. Unable to draw blood. Pt states to come back later. Will endorse pt to AM shift nurse for continuation of care.
--- NOTE | 2018-03-19 07:26 | PN ---
Date/Time of Note Date/Time of Note DATE: 03/19/18 TIME: 07:20 Assessment/Plan VTE Prophylaxis Risk score (from Ns)>0 risk: 2 SCD applied (from Ns): No SCD contraindicated: low risk/ambulating, patient refusal Pharmacological prophylaxis: NA/contraindicated Pharm contraindication: low risk/ambulating Lines/Catheters [facility] Mid Line Urinary Cath still in place: No Assessment/Plan Hospital Course 52 yo female with ESRD and diarrhea left AMA 03/16 and returned with abdominal pain. 1. Abdominal pain -lipase mildly elevated 03/16 420 2. Diarrhea -O/P negative. C diff negative 3. Mildly elevated lipase with mid abd pain radiating to back 4. Mild generalized small and large bowel wall thickening which per CT 03/01 could represent third spacing. 5. Hemorrhoids per pt 6. Mild hepatomegaly 7. Anemia, acute -Ferritin high, Iron wnl, TIBC low, B12 wnl, folate wnl, FOB negative -no evidence of GI bleeding 8. End stage renal disease on HD 9. Cardiomegaly with mild lower lung pulmonary edema with small left effusion and mild diffuse ascites 10. Anasarca and ascites -03/15 paracentesis removed 2.9 liters 11. Diabetes 12. Hypertension 13. Elevated alk phos 14. Mildly dilated biliary system with CBD measuring 10mm 15. Chronic liver disease MRCP 03/18: 1. Enlarged liver with suggestion of mild liver surface nodularity. Chronic hepatic parenchymal disease is suspected. Diffusely decreased T2 signal intensity of the liver and spleen can represent hemosiderin deposition likely in the setting of secondary hemochromatosis. 2. Large volume ascites. 3. Wall thickening of the gallbladder without gallstones. This likely relates to presence of large volume ascites. 4. Wall thickening of multiple loops of small bowel may also relate to presence of ascites. 5. No intrahepatic biliary ductal dilatation. Mild extrahepatic biliary ductal dilatation measuring up to 10 mm in the mid common bile duct with gradual distal tapering. No filling defects along the course of the common bile duct within the limitations of this exam to represent choledocholithiasis. Plan: Labs pending. If LFTs abnormal will consider ERCP US guided paracentesis with culture. Clear liquid diet PPI Monitor LFTS, lipase and amylase, pending this morning Pt examined and plan of care discussed with Dr. Webb Result Diagram: 03/17/18 0629 03/17/18 2243 Results 24hrs Laboratory Tests Test 03/18/18 08:14 03/18/18 12:24 03/18/18 18:00 03/18/18 20:55 Bedside Glucose 72 93 80 70 Subjective 24 Hr Interval Summary Free Text/Dictation Pt c/o abdominal pain mid abdomen that radiates to back. She refused labs yes terday and asked them to come back today. No N/V. diarrhea improved. 2.3 liters removed by HD yesterday. Exam/Review of Systems Vital Signs Vitals Vital Signs Date Temp Pulse Resp B/P (MAP) Pulse Ox O2 O2 Flow FiO2 Time Delivery Rate 03/19/18 98.5 95 18 154/87 97 Room Air 01:51 (109) Intake and Output 03/18/18 03/18/18 03/19/18 1414:59 22:59 06:59 IntakeIntake Total 1160 ml 450 ml OutputOutput Total 200 ml 2400 ml BalanceBalance 1160 ml -200 ml -1950 ml Exam Constitutional: alert, oriented Psych: no complaints Head: normocephalic Eyes: nl sclera, PERRL ENMT: mucosa pink and moist Respiratory: diminished breath sounds Cardiovascular: regular rate and rhythm Gastrointestinal: soft, ascites, distended Musculoskeletal: nl gait and stance Neurological: nl mental status Medications Medications Current Medications Ondansetron HCl (Zofran Inj) 4 mg Q6H PRN IV NAUSEA AND/OR VOMITING Last administered on 03/16/18at 22:40; Admin Dose 4 MG; Start 03/16/18 at 18:30 Diphenhydramine HCl (Benadryl) 25 mg Q6H PRN IV ITCHING Last administered on 03/19/18at 00:29; Admin Dose 25 MG; Start 03/16/18 at 18:30 Clonidine (Catapres) 0.1 mg Q6H PRN PO ELEVATED BLOOD PRESSURE Last administered on 03/18/18at 02:50; Admin Dose 0.1 MG; Start 03/16/18 at 20:30 Insulin Aspart (Novolog Insulin Pen) NOVOLOG *MODERATE* ALGORITHM WITH MEALS BEDTIME SC ; Start 03/16/18 at 22:00 Calcitriol (Rocaltrol) 0.25 mcg DAILY PO Last administered on 03/18/18 08:15; Admin Dose 0.25 MCG; Start 03/17/18 at 09:00 Furosemide (Lasix) 40 mg BID PO Last administered on 03/19/18at 01:50; Admin Dose 40 MG; Start 03/16/18 at 21:00 Levetiracetam (Keppra) 500 mg BID PO Last administered on 03/19/18at 01:50; Admin Dose 500 MG; Start 03/16/18 at 21:00 Nifedipine (Procardia Xl) 30 mg DAILY PO Last administered on 03/18/18at 08:16; Admin Dose 30 MG; Start 03/17/18 at 09:00 Pantoprazole (Protonix Tab) 40 mg AC BREAKFAST PO Last administered on 03/18/18at 06:27; Admin Dose 40 MG; Start 03/17/18 at 07:00 Quetiapine Fumarate (Seroquel) 300 mg DAILY PO Last administered on 03/18/18at 08:15; Admin Dose 300 MG; Start 03/17/18 at 09:00 Sevelamer Carbonate (Renvela) 1.6 gm WITH MEALS PO Last administered on 03/18/18at 18:03; Admin Dose 1.6 GM; Start 03/17/18 at 08:00 Miscellaneous Information 1 ea NOTE XX ; Start 03/16/18 at 21:30 Glucose (Glutose) 15 gm Q15M PRN PO DECREASED GLUCOSE; Start 03/16/18 at 21:30 Glucose (Glutose) 22.5 gm Q15M PRN PO DECREASED GLUCOSE; Start 03/16/18 at 21:30 Dextrose (D50w Syringe) 25 ml Q15M PRN IV DECREASED GLUCOSE; Start 03/16/18 at 21:30 Dextrose (D50w Syringe) 50 ml Q15M PRN IV DECREASED GLUCOSE; Start 03/16/18 at 21:30 Glucagon (Glucagen) 1 mg Q15M PRN IM DECREASED GLUCOSE; Start 03/16/18 at 21:30 Glucose (Glutose) 15 gm Q15M PRN BUCCAL DECREASED GLUCOSE; Start 03/16/18 at 21:30 Labetalol HCl (Normodyne) 200 mg BID PO Last administered on 03/19/18at 01:49; Admin Dose 200 MG; Start 03/16/18 at 22:00 Morphine Sulfate (morphine SULFATE (PF)) 4 mg Q4H PRN IV SEVERE PAIN LEVEL 7-10 Last administered on 03/19/18 06:46; Admin Dose 4 MG; Start 03/17/18 at 02:00 Loperamide HCl (Imodium Cap) 2 mg Q6H PRN PO diarrhea Last administered on 03/18/18 08:15; Admin Dose 2 MG; Start 03/17/18 at 03:30 Cholestyramine Resin (Questran) 1 pkt DAILY PO Last administered on 03/18/18 08:15; Admin Dose 1 PKT; Start 03/17/18 at 09:00 Acetaminophen (Tylenol Tab) 650 mg Q6H PRN PO MILD PAIN(1-3)OR ELEVATED TEMP Last administered on 03/18/18 03:12; Admin Dose 650 MG; Start 03/17/18 at 14:00 Hydralazine HCl (Apresoline) 25 mg Q6H PRN PO ELEVATED SYSTOLIC BP Last administered on 03/18/18 05:39; Admin Dose 25 MG; Start 03/18/18 at 05:30 Heparin Sodium (Porcine) (Heparin (1000 Units/ml)) 2,300 unit AFTER DIALYSIS CATHETER Last administered on 03/19/18 01:28; Admin Dose 2,300 UNIT; Start 03/18/18 at 22:00 ROBERT GOODRICH Mar 19, 2018 07:26
[2018-03-19] MEDS: INSULIN ASPART [NOVOLOG] 3 ML PEN SC SCH ×4 (07:38→21:00)
[2018-03-19] MEDS: SEVELAMER CARBONATE 0.8 GM PKT PO SCH ×3 (07:38→18:00)
[2018-03-19] MEDS: ACETAMINOPHEN 325 MG TAB PO PRN (07:55)
[2018-03-19] MEDS: CHOLESTYRAMINE 4 GM PACKET PO SCH (09:00)
[2018-03-19] MEDS: CALCITRIOL 0.25 MCG CAP PO SCH (09:00)
[2018-03-19] MEDS: NIFEdipine (XL) 30 MG TAB PO SCH (09:00)
[2018-03-19] MEDS: QUETIAPINE 100 MG TAB PO SCH (09:00)
[2018-03-19] MEDS ORDERED: LIDOCAINE 1% (MPF) 5 ML VIAL ONE (10:02)
--- NOTE | 2018-03-19 10:04 | NUR ---
ULTRASOUND GUIDED PARACENTESIS PERFORMED BY DR STEWARD,[id number] FLUID ASPIRATED AND DISCARDED
--- NOTE | 2018-03-19 11:52 | PN ---
DATE: 03/19/2018 SUBJECTIVE: The patient had hemodialysis yesterday and tolerated it well. The patient has a tempora ry catheter placed. OBJECTIVE: VITAL SIGNS: Blood pressure is 146/74, respiration 18, pulse 95, temperature 100.8. HEENT: Head is normocephalic. NECK: Supple. HEART: Regular rate. LUNGS: Show diminished breath sounds at base. ABDOMEN: Soft, nontender to palpation without rebound or guarding. EXTREMITIES: Negative for clubbing, cyanosis. No edema. DERMATOLOGIC: No rashes. MUSCULOSKELETAL: No joint effusion. NEUROLOGIC: No change in exam. MEDICATIONS: Have been reviewed. LABORATORY DATA: Show a sodium 138, potassium 4.6, BUN 24, creatinine 3.58. White count 8.6, hemogl obin 10.2, platelet count 229. ASSESSMENT AND PLAN: 1. End-stage renal disease with clotted AV fistula. The patient is status post Petros catheter guilherme cement. The patient had hemodialysis yesterday and tolerated it well. Plan for dialysis tomorrow. 2. Access. The patient has a clotted AV fistula. Vascular surgery consult was placed with Dr. Yaw aguilar for evaluation. The patient currently has a Petros catheter. We will continue. Continue act kristen care. 3. Hyperkalemia, resolved. 4. Volume overload. Continue ultrafiltration dialysis. 5. Diabetes. Continue current insulin regimen. 6. Anemia. Monitor hemoglobin and hematocrit levels. We will continue Epogen. 7. Mineral bone disorder. Monitor calcium and phosphorus levels. 8. Encephalopathy, resolved. 9. Fever and systemic inflammatory response syndrome. Etiology is unclear. Follow up cultures. Co nsider empiric antibiotics. Defer to primary team. 10. Hypertension. Continue current blood pressure regimen. 11. Gastritis. Continue PPI. Dictated By: SHILO LIU DO NR/NTS Conf#: [id number] DID#: [id number] CC: JF KAISER MD;*EndCC*
--- NOTE | 2018-03-19 12:55 | PREAC ---
Date/Time of Note Date/Time of Note DATE: 03/19/18 TIME: 12:53 Anesthesia Eval and Record Evaluation Time Pre-Procedure Interview DATE: 03/19/18 TIME: 12:53 Age 52 Sex female NPO: 8 hrs Preoperative diagnosis LEFT UE AV FISTULA THROMBUS Planned procedure THROMBECTOMY OF THE ABOVE Past Medical History Past Medical History: Includes Endo: Diabetes Renal: ESRD on dialysis, HD last: (2 DAYS AGO) Surgery & Anesthesia Issues No known issue Meds Anticoagulation: No Beta Magy within 24 hr: Yes (LABETALOL) Active Scripts Diphenhydramine Hcl* (Benadryl*) 25 Mg Cap, 25 MG PO Q6H PRN for ITCHING, #30 CAP Prov:BLAKE MORALES 12/10/17 Labetalol Hcl* (Labetalol Hcl*) 100 Mg Tablet, 200 MG PO BID for 30 Days, TAB Prov:BLAKE MORALES 12/10/17 Nifedipine (Procardia Xl) 30 Mg Tab.er.24, 30 MG PO DAILY for 30 Days, TAB Prov:BLAKE MORALES 12/10/17 Sevelamer Carbonate* (Renvela*) 800 Mg Tablet, 1600 MG PO WITH MEALS for 30 Days, TAB Prov:BLAKE MORALES 12/10/17 Reported Medications Calcitriol* (Calcitriol*) 0.25 Mcg Capsule, 0.25 MG PO DAILY for 30 Days TAKE ONE CAPSULE BY MOUTH EVERYDAY 03/01/18 Quetiapine Fumarate* (Seroquel*) 300 Mg Tablet, 300 MG PO DAILY, TAB 12/07/17 Pantoprazole* (Protonix*) 40 Mg Tablet.dr, 40 MG PO AC BREAKFAST, TAB 12/07/17 Furosemide* (Furosemide*) 40 Mg Tablet, 40 MG PO BID, TAB 12/07/17 Levetiracetam* (Keppra*) 500 Mg Tablet, 500 MG PO BID, TAB 12/07/17 Current Medications Ondansetron HCl (Zofran Inj) 4 mg Q6H PRN IV NAUSEA AND/OR VOMITING Last administered on 03/16/18at 22:40; Admin Dose 4 MG; Start 03/16/18 at 18:30 Diphenhydramine HCl (Benadryl) 25 mg Q6H PRN IV ITCHING Last administered on 03/19/18at 10:54; Admin Dose 25 MG; Start 03/16/18 at 18:30 Clonidine (Catapres) 0.1 mg Q6H PRN PO ELEVATED BLOOD PRESSURE Last administered on 03/18/18 02:50; Admin Dose 0.1 MG; Start 03/16/18 at 20:30 Insulin Aspart (Novolog Insulin Pen) NOVOLOG *MODERATE* ALGORITHM WITH MEALS BEDTIME SC ; Start 03/16/18 at 22:00 Calcitriol (Rocaltrol) 0.25 mcg DAILY PO Last administered on 03/18/18at 08:15; Admin Dose 0.25 MCG; Start 03/17/18 at 09:00 Furosemide (Lasix) 40 mg BID PO Last administered on 03/19/18at 01:50; Admin Dose 40 MG; Start 03/16/18 at 21:00 Levetiracetam (Keppra) 500 mg BID PO Last administered on 03/19/18at 01:50; Admin Dose 500 MG; Start 03/16/18 at 21:00 Nifedipine (Procardia Xl) 30 mg DAILY PO Last administered on 03/18/18at 08:16; Admin Dose 30 MG; Start 03/17/18 at 09:00 Pantoprazole (Protonix Tab) 40 mg AC BREAKFAST PO Last administered on 03/18/18at 06:27; Admin Dose 40 MG; Start 03/17/18 at 07:00 Quetiapine Fumarate (Seroquel) 300 mg DAILY PO Last administered on 03/18/18at 08:15; Admin Dose 300 MG; Start 03/17/18 at 09:00 Sevelamer Carbonate (Renvela) 1.6 gm WITH MEALS PO Last administered on 03/18/18at 18:03; Admin Dose 1.6 GM; Start 03/17/18 at 08:00 Miscellaneous Information 1 ea NOTE XX ; Start 03/16/18 at 21:30 Glucose (Glutose) 15 gm Q15M PRN PO DECREASED GLUCOSE; Start 03/16/18 at 21:30 Glucose (Glutose) 22.5 gm Q15M PRN PO DECREASED GLUCOSE; Start 03/16/18 at 21:30 Dextrose (D50w Syringe) 25 ml Q15M PRN IV DECREASED GLUCOSE; Start 03/16/18 at 21:30 Dextrose (D50w Syringe) 50 ml Q15M PRN IV DECREASED GLUCOSE; Start 03/16/18 at 21:30 Glucagon (Glucagen) 1 mg Q15M PRN IM DECREASED GLUCOSE; Start 03/16/18 at 21:30 Glucose (Glutose) 15 gm Q15M PRN BUCCAL DECREASED GLUCOSE; Start 03/16/18 at 21:30 Labetalol HCl (Normodyne) 200 mg BID PO Last administered on 03/19/18at 01:49; Admin Dose 200 MG; Start 03/16/18 at 22:00 Morphine Sulfate (morphine SULFATE (PF)) 4 mg Q4H PRN IV SEVERE PAIN LEVEL 7-10 Last administered on 03/19/18at 06:46; Admin Dose 4 MG; Start 03/17/18 at 02:00 Loperamide HCl (Imodium Cap) 2 mg Q6H PRN PO diarrhea Last administered on 03/18/18at 08:15; Admin Dose 2 MG; Start 03/17/18 at 03:30 Cholestyramine Resin (Questran) 1 pkt DAILY PO Last administered on 03/18/18at 08:15; Admin Dose 1 PKT; Start 03/17/18 at 09:00 Acetaminophen (Tylenol Tab) 650 mg Q6H PRN PO MILD PAIN(1-3)OR ELEVATED TEMP Last administered on 03/19/18at 07:55; Admin Dose 650 MG; Start 03/17/18 at 14:00 Hydralazine HCl (Apresoline) 25 mg Q6H PRN PO ELEVATED SYSTOLIC BP Last administered on 03/18/18at 05:39; Admin Dose 25 MG; Start 03/18/18 at 05:30 Heparin Sodium (Porcine) (Heparin (1000 Units/ml)) 2,300 unit AFTER DIALYSIS CATHETER Last administered on 03/19/18at 01:28; Admin Dose 2,300 UNIT; Start 03/18/18 at 22:00 Epoetin [place] (Epogen (Esrd)) 10,000 units MoWeFr@17 SC ; Start 03/19/18 at 17:00 Meds reviewed: Yes Allergies Coded Allergies: No Known Allergy (Unverified , 03/16/18) Allergies Reviewed: Yes Labs/Studies Labs Reviewed: Reviewed by anesthesiologist Result Diagram: 03/19/18 0743 03/19/18 0743 Laboratory Tests 03/19/18 07:43 test: N/A Studies: ECG (NSR), CXR (Mild atelectasis at the lung bases is unchanged with right worse than left. The heart is enlarged. There is no pleural effusion or pneumothorax.) Pre-procedure Exam Last vitals Vital Signs Date Temp Pulse Resp B/P (MAP) Pulse Ox O2 O2 Flow FiO2 Time Delivery Rate 03/19/18 100.8 95 18 146/74 94 07:56 (98) 03/19/18 Room Air 01:51 Airway: Adequate mouth opening, Adequate thyromental dist Mallampati: Mallampati II Teeth: Normal Lung: Normal Heart: Normal ASA Physical Status ASA physical status: 4 Emergency: None Planned Anesthetic General/MAC: MAC Planned Pain Management Single shot nerve block, Parenteral pain med, Local by surgeon Pre-operative Attestations Prior to commencing anesthesia and surgery, the patient was re-evaluated, there was verification of: *The patient's identity *The results of appropriate recent lab work and preoperative vital signs *The above evaluation not changing prior to induction *Anesthetic plan, risk benefits, alternative and complications discussed with patient/family; questions answered; patient/family understands, accepts and wishes to proceed. Morgan Ferguson M.D. Mar 19, 2018 12:55
[2018-03-19] MEDS ORDERED: IPRATROPIUM (NEB) 0.5 MG/2.5 ML AMP HHN PRN (13:00)
[2018-03-19] MEDS ORDERED: EPHEDrine SULFATE 50 MG/5 ML SYG IV PRN (13:00)
[2018-03-19] MEDS ORDERED: DIPHENHYDRAMINE 50 MG INJ IV PRN (13:00)
[2018-03-19] MEDS ORDERED: OXYCODONE/ACETAMINOPHEN (5/325) TAB PO PRN ×2 (13:00)
[2018-03-19] MEDS ORDERED: ONDANSETRON 4 MG INJ IV PRN (13:00)
[2018-03-19] MEDS ORDERED: ALBUTEROL 0.083% (NEB) 2.5 MG/3 ML AMP HHN PRN (13:00)
[2018-03-19] MEDS ORDERED: FENTAnyl 50 MCG/ML VIAL IV PRN ×3 (13:00)
[2018-03-19] MEDS ORDERED: LABETALOL HCL 20MG INJ IV PRN (13:00)
[2018-03-19] MEDS ORDERED: MIDAZOLAM 1 MG/ML 2 ML INJ IV PRN (13:00)
[2018-03-19] MEDS ORDERED: TRIMETHOBENZAMIDE 100 MG/ML VIAL IM PRN (13:00)
[2018-03-19] MEDS ORDERED: hydrALAzine 20 MG INJ IV PRN (13:00)
[2018-03-19] MEDS ORDERED: HYDROmorphONE 1 MG/5 ML IV SYRINGE IV PRN ×3 (13:00)
--- NOTE | 2018-03-19 14:38 | HPN ---
Date/Time of Note Date/Time of Note DATE: 03/19/18 TIME: 14:37 Interval H&P Admission Note Pt. seen H&P reviewed: No system changes REGINO SANTOS MD Mar 19, 2018 14:38
--- NOTE | 2018-03-19 14:40 | PN ---
Date/Time of Note Date/Time of Note DATE: 03/19/18 TIME: 14:38 Assessment/Plan VTE Prophylaxis Risk score [place]from [facility] [place] risk: 2 SCD applied (from [facility] [place] No SCD contraindicated: other Pharmacological prophylaxis: LMWH Lines/Catheters IV Catheter Type (from [facility]): Mid Line Urinary Cath still in place: No Assessment/Plan Hospital Course 1) fluid overload - related to renal failure 2) renal failure - hemodialysis per nephrology 3) abdominal pain - work up and treatment per GI 4) diabetes - monitor blood sugar, insulin coverage as needed Result Diagram: 03/19/18 0743 03/19/18 0743 Results 24hrs Laboratory Tests Test 03/18/18 18:00 03/18/18 20:55 03/19/18 07:39 03/19/18 07:43 Bedside Glucose 80 70 91 White Blood 8.6 # Count Red Blood Count 2.82 L Hemoglobin 7.2 L Hematocrit 22.2 L Mean Corpuscular 78.7 L Volume Mean Corpuscular 25.5 L Hemoglobin Mean Corpuscular 32.4 Hemoglobin Shannan nt Red Cell 17.6 H Distribution Width Platelet Count 229 # Mean Platelet 9.7 Volume Immature 0.300 Granulocytes % Neutrophils % 75.3 Lymphocytes % 11.8 L Monocytes % 10.6 Eosinophils % 1.7 Basophils % 0.3 Nucleated Red 0.0 Blood Cells % Immature 0.030 Granulocytes # Neutrophils # 6.5 Lymphocytes # 1.0 Monocytes # 0.9 Eosinophils # 0.2 Basophils # 0.0 Nucleated Red 0.0 Blood Cells # Prothrombin Time 15.2 H Prothrombin Time 1.2 Ratio INR 1.18 International Normalized Ratio Sodium Level 138 Potassium Level 4.6 Chloride Level 98 Carbon Dioxide 29 Level Anion Gap 11 Blood Urea 24 H Nitrogen Creatinine 3.58 H Est Glomerular 16 L Filtrat Rate mL/min Glucose Level 91 Calcium Level 8.3 L Phosphorus Level 4.5 Magnesium Level 1.8 Iron Level 12 L Total Iron 202 L Binding Capacity Percent Iron 6 L Saturation Ferritin 354.0 H Total Bilirubin 0.0 L Direct Bilirubin 0.00 Indirect 0.0 Bilirubin Aspartate Amino 15 Transf (AST/SGOT ) Alanine 20 Aminotransferase (ALT/SGPT) Alkaline 145 H Phosphatase Total Protein 5.5 L Albumin 2.7 L Amylase Level 46 Lipase 21 L Subjective 24 Hr Interval Summary Free Text/Dictation Patient not in room so unable to interview Exam/Review of Systems Vital Signs Vitals Vital Signs Date Temp Pulse Resp B/P (MAP) Pulse Ox O2 O2 Flow FiO2 Time Delivery Rate 03/19/18 100.8 95 18 146/74 94 07:56 (98) 03/19/18 Room Air 01:51 Intake and Output 03/18/18 03/18/18 03/19/18 1515:00 23:00 07:00 IntakeIntake Total 1160 ml 450 ml OutputOutput Total 200 ml 2400 ml BalanceBalance 1160 ml -200 ml -1950 ml Exam Unable to examine patient as she is not in room Medications Medications Current Medications Ondansetron HCl (Zofran Inj) 4 mg Q6H PRN IV NAUSEA AND/OR VOMITING Last administered on 03/16/18 22:40; Admin Dose 4 MG; Start 03/16/18 at 18:30 Diphenhydramine HCl (Benadryl) 25 mg Q6H PRN IV ITCHING Last administered on 03/19/18at 10:54; Admin Dose 25 MG; Start 03/16/18 at 18:30 Clonidine (Catapres) 0.1 mg Q6H PRN PO ELEVATED BLOOD PRESSURE Last administered on 03/18/18 02:50; Admin Dose 0.1 MG; Start 03/16/18 at 20:30 Insulin Aspart (Novolog Insulin Pen) NOVOLOG *MODERATE* ALGORITHM WITH MEALS BEDTIME SC ; Start 03/16/18 at 22:00 Calcitriol (Rocaltrol) 0.25 mcg DAILY PO Last administered on 03/18/18at 08:15; Admin Dose 0.25 MCG; Start 03/17/18 at 09:00 Furosemide (Lasix) 40 mg BID PO Last administered on 03/19/18 01:50; Admin Dose 40 MG; Start 03/16/18 at 21:00 Levetiracetam (Keppra) 500 mg BID PO Last administered on 03/19/18 01:50; Admin Dose 500 MG; Start 03/16/18 at 21:00 Nifedipine (Procardia Xl) 30 mg DAILY PO Last administered on 03/18/18at 08:16; Admin Dose 30 MG; Start 03/17/18 at 09:00 Pantoprazole (Protonix Tab) 40 mg AC BREAKFAST PO Last administered on 12/27/18at 06:27; Admin Dose 40 MG; Start 03/17/18 at 07:00 Quetiapine Fumarate (Seroquel) 300 mg DAILY PO Last administered on 03/18/18at 08:15; Admin Dose 300 MG; Start 03/17/18 at 09:00 Sevelamer Carbonate (Renvela) 1.6 gm WITH MEALS PO Last administered on 18:03; Admin Dose 1.6 GM; Start 03/17/18 at 08:00 Miscellaneous Information 1 ea NOTE XX ; Start 03/16/18 at 21:30 Glucose (Glutose) 15 gm Q15M PRN PO DECREASED GLUCOSE; Start 03/16/18 at 21:30 Glucose (Glutose) 22.5 gm Q15M PRN PO DECREASED GLUCOSE; Start 03/16/18 at 21:30 Dextrose (D50w Syringe) 25 ml Q15M PRN IV DECREASED GLUCOSE; Start 03/16/18 at 21:30 Dextrose (D50w Syringe) 50 ml Q15M PRN IV DECREASED GLUCOSE; Start 03/16/18 at 21:30 Glucagon (Glucagen) 1 mg Q15M PRN IM DECREASED GLUCOSE; Start 03/16/18 at 21:30 Glucose (Glutose) 15 gm Q15M PRN BUCCAL DECREASED GLUCOSE; Start 03/16/18 at 21:30 Labetalol HCl (Normodyne) 200 mg BID PO Last administered on 03/19/18at 01:49; Admin Dose 200 MG; Start 03/16/18 at 22:00 Morphine Sulfate (morphine SULFATE (PF)) 4 mg Q4H PRN IV SEVERE PAIN LEVEL 7-10 Last administered on 03/19/18at 06:46; Admin Dose 4 MG; Start 03/17/18 at 02:00 Loperamide HCl (Imodium Cap) 2 mg Q6H PRN PO diarrhea Last administered on 03/18/18at 08:15; Admin Dose 2 MG; Start 03/17/18 at 03:30 Cholestyramine Resin (Questran) 1 pkt DAILY PO Last administered on 03/18/18at 08:15; Admin Dose 1 PKT; Start 03/17/18 at 09:00 Acetaminophen (Tylenol Tab) 650 mg Q6H PRN PO MILD PAIN(1-3)OR ELEVATED TEMP Last administered on 03/19/18at 07:55; Admin Dose 650 MG; Start 03/17/18 at 14:00 Hydralazine HCl (Apresoline) 25 mg Q6H PRN PO ELEVATED SYSTOLIC BP Last administered on 03/18/18at 05:39; Admin Dose 25 MG; Start 03/18/18 at 05:30 Heparin Sodium (Porcine) (Heparin (1000 Units/ml)) 2,300 unit AFTER DIALYSIS CATHETER Last administered on 03/19/18at 01:28; Admin Dose 2,300 UNIT; Start 03/18/18 at 22:00 Epoetin [place] (Epogen (Esrd)) 10,000 units MoWeFr@17 SC ; Start 03/19/18 at 17:00 Hydromorphone HCl (Dilaudid) 0.2 mg PACU PRN IV MILD PAIN LEVEL 1-3; Start 03/19/18 at 13:00; Stop 03/19/18 at 17:00 Hydromorphone HCl (Dilaudid) 0.4 mg PACU PRN IV MODERATE PAIN LEVEL 4-6; Start 03/19/18 at 13:00; Stop 03/19/18 at 17:00 Hydromorphone HCl (Dilaudid) 0.6 mg PACU PRN IV SEVERE PAIN LEVEL 7-10; Start 03/19/18 at 13:00; Stop 03/19/18 at 17:00 Fentanyl (Sublimaze) 25 mcg PACU ORDER PRN IV MILD PAIN LEVEL 1-3; Start 03/19/18 at 13:00; Stop 03/19/18 at 17:00 Fentanyl (Sublimaze) 50 mcg PACU ORDER PRN IV MODERATE PAIN LEVEL 4-6; Start 03/19/18 at 13:00; Stop 03/19/18 at 17:00 Fentanyl (Sublimaze) 75 mcg PACU ORDER PRN IV SEVERE PAIN LEVEL 7-10; Start 03/19/18 at 13:00; Stop 03/19/18 at 17:00 Oxycodone/ Acetaminophen (Percocet (5/ 325)) 1 tab PACU ORDER PRN PO PAIN LEVEL 1-5; Start 03/19/18 at 13:00; Stop 03/19/18 at 17:00 Oxycodone/ Acetaminophen (Percocet (5/ 325)) 2 tab PACU ORDER PRN PO PAIN LEVEL 6-10; Start 03/19/18 at 13:00; Stop 03/19/18 at 17:00 Ondansetron HCl (Zofran Inj) 4 mg PACU ORDER PRN IV NAUSEA AND/OR VOMITING; Start 03/19/18 at 13:00; Stop 03/19/18 at 17:00 Trimethobenzamide HCl (Tigan) 200 mg PACU ORDER PRN IM NAUSEA AND/OR VOMITING; Start 03/19/18 at 13:00; Stop 03/19/18 at 17:00 Labetalol HCl (Labetalol) 5 mg PACU ORDER PRN IV ELEVATED BLOOD PRESSURE; Start 03/19/18 at 13:00; Stop 03/19/18 at 17:00 Hydralazine HCl (Apresoline) 5 mg PACU ORDER PRN IV ELEVATED BLOOD PRESSURE; Start 03/19/18 at 13:00; Stop 03/19/18 at 17:00 Ephedrine Sulfate 5 mg PACU ORDER PRN IV BLOOD PRESSURE SUPPORT; Start 03/19/18 at 13:00; Stop 03/19/18 at 17:00 Albuterol (Proventil 0.083% (Neb)) 2.5 mg PACU ORDER PRN HHN WHEEZING; Start 03/19/18 at 13:00; Stop 03/19/18 at 17:00 Ipratropium [place] (Atrovent 0.02% (Neb)) 0.5 mg PACU ORDER PRN HHN WHEEZING; Start 03/19/18 at 13:00; Stop 03/19/18 at 17:00 Diphenhydramine HCl (Benadryl) 25 mg PACU ORDER PRN IV PRURITUS; Start 03/19/18 at 13:00; Stop 03/19/18 at 17:00 Midazolam HCl (Versed) 0.5 mg PACU ORDER PRN IV ANXIETY; Start 03/19/18 at 13:00; Stop 03/19/18 at 17:00 JF KAISER Mar 19, 2018 14:40
[2018-03-19] MEDS ORDERED: THROMBIN 5000 UNIT VIAL ONE (14:41)
[2018-03-19] MEDS ORDERED: GELATIN SIZE 100 SPONGE ONE (14:41)
[2018-03-19] MEDS ORDERED: BUPIVACAINE 0.25% (MPF) 30 ML INJ ONE (14:41)
[2018-03-19] MEDS ORDERED: LIDOCAINE 1% (MPF) 30 ML INJ ONE (14:41)
[2018-03-19] MEDS ORDERED: HEPARIN 1000 UNITS/ML 10 ML INJ ONE ×2 (14:41→15:48)
[2018-03-19] MEDS ORDERED: IOHEXOL 300MG/ML 30 ML BTL ONE (15:06)
[2018-03-19] MEDS ORDERED: hydrALAzine 20 MG INJ ONE (15:20)
[2018-03-19] MEDS ORDERED: LABETALOL HCL 20MG INJ ONE (15:25)
[2018-03-19] MEDS ORDERED: KETAMINE (50 MG/ML) 10 ML VIAL ONE (15:35)
--- NOTE | 2018-03-19 16:23 | OPR ---
Date/Time of Note Date/Time of Note DATE: 03/19/18 TIME: 16:22 Operative Report Procedure Date: Mar 19, 2018 Preoperative Diagnosis Clotted LUE AVG Postoperative Diagnosis same Operation/Procedure Performed Thrombectomy LUE AVG Surgeon see signature line Adult Parole Officer no Anesthesia Type: MAC Estimated Blood Loss: minimal Transfusion none Specimen no Grafts/Implants none Complications none Disposition: PACU Procedure Description Dictated REGINO SANTOS MD Mar 19, 2018 16:23
--- NOTE | 2018-03-19 16:34 | NUR ---
PACU: Received patient in pacu via bed s/p Left arm thrombectomy AAOx2 BP high Dr. Ferguson aware, HOB @ semi turk position, breathing with ease, denies pain at this time, left upper arm dressing dry & intact, called AGUSTO Cornelius who is taking care of the patient on the floor that Dr Larkin changed the floor order to Telemetry to call the new RN in telemetry & give report about the patient , will continue to monitor.
--- NOTE | 2018-03-19 16:42 | PAC ---
Date/Time of Note Date/Time of Note DATE: 03/19/18 TIME: 16:42 Post-Anesthesia Notes Post-Anesthesia Note Last documented vital signs Vital Signs Date Temp Pulse Resp B/P (MAP) Pulse Ox O2 O2 Flow FiO2 Time Delivery Rate 03/19/18 98.8 16:39 03/19/18 95 18 146/74 94 07:56 (98) 03/19/18 Room Air 01:51 Activity: WNL Respiratory function: WNL Cardiovascular function: WNL Mental status: Baseline Pain reasonably controlled: Yes Hydration appropriate: Yes Nausea/Vomiting absent: Yes Morgan Ferguson M.D. Mar 19, 2018 16:42
[2018-03-19] MEDS ORDERED: EPOETIN 10000 UNITS/1 ML INJ (ESRD) SC SCH (17:00)
--- NOTE | 2018-03-19 17:44 | NUR ---
pt will be transferred to tele per MD order from PACU, attempted to call report twice
--- NOTE | 2018-03-19 17:55 | NUR ---
report given to receiving RN at [facility]
--- NOTE | 2018-03-19 18:08 | NUR ---
PACU: Transferred patient to Telemetry via bed w/ curing supervisor, AAOX4 vss HOB @ semi turk position, breathing with ease, left arm dressing dry & intact, given IV pain medication & benadryl for itching, denies pain, Report given to AGUSTO Nguyen
[2018-03-19] MEDS: DEXTROSE 5% 1,000 ML IV SCH (18:17)
--- NOTE | 2018-03-19 18:50 | NUR ---
RN NOTES Receieved pt from PACU, a/o x 4, on 2L NC saturating well @ 99%, BP elevated, PRN hydralazine given. POC reviewed and was carried out, oriented to the unit and was made comfortable, was placed on a tele monitor. Skin checked with Maria Luz LIZ, pictures taken and will be filed in the chart. Consent for ERCP signed and filed in the chart. Will endorse accordingly to night RN .
[2018-03-19] MEDS ORDERED: PENDING SANTYL ORDER FOR WOUND CARE XX PRN (19:30)
[2018-03-19] MEDS ORDERED: COLLAGENASE 5 GM (UD JAR) TOP PRN (19:30)
[2018-03-20] VITALS (23 sets, daily range): BP systolic 124–161; BP diastolic 56–79; PULSE 74–81; RESP 16–18
[2018-03-20] MEDS: LOPERAMIDE 2 MG CAP PO PRN (01:12)
[2018-03-20] MEDS: DIPHENHYDRAMINE 50 MG INJ IV PRN ×3 (03:49→18:05)
[2018-03-20] MEDS: morphine SULFATE/PF (2 MG/2 ML) SYG IV PRN ×4 (03:50→20:34)
[2018-03-20] MEDS: PANTOPRAZOLE (EC) 40 MG TAB PO SCH (06:28)
[2018-03-20] MEDS: INSULIN ASPART [NOVOLOG] 3 ML PEN SC SCH ×4 (07:55→20:41)
[2018-03-20] MEDS: SEVELAMER CARBONATE 0.8 GM PKT PO SCH ×3 (07:55→18:05)
--- NOTE | 2018-03-20 08:39 | PN ---
Date/Time of Note Date/Time of Note DATE: 03/20/18 TIME: 08:37 Assessment/Plan VTE Prophylaxis Risk score (from Nsg)>0 risk: 4 SCD applied (from Nsg): Yes Pharmacological prophylaxis: other Lines/Catheters IV Catheter Type (from Nrsg): Peripheral IV Urinary Cath still in place: No Assessment/Plan Hospital Course renal follow up SUBJECTIVE: events were reviewed. d/w Dr Bledsoe OBJECTIVE: HEENT: Head is normocephalic. NECK: Supple. HEART: Regular rate. LUNGS: Show diminished breath sounds at base. ABDOMEN: Soft, nontender to palpation without rebound or guarding. EXTREMITIES: Negative for clubbing, cyanosis. No edema. DERMATOLOGIC: No rashes. MUSCULOSKELETAL: No joint effusion. NEUROLOGIC: No change in exam. MEDICATIONS: Have been reviewed. ASSESSMENT AND PLAN: 1. End-stage renal disease. Plan for dialysis today 2. Anemia: will add ferrlicet IV. continue epogen 3. Hyperkalemia, resolved. 4. Volume overload. Continue ultrafiltration dialysis. 5. Diabetes. Continue current insulin regimen. 6. Anemia. Monitor hemoglobin and hematocrit levels. We will continue Epogen. 7. Mineral bone disorder. Monitor calcium and phosphorus levels. 8. Encephalopathy, resolved. 9. Fever and systemic inflammatory response syndrome. Etiology is unclear. Follow up cultures. Consider empiric antibiotics. Defer to primary team. 10. Hypertension. Continue current blood pressure regimen. 11. Gastritis. Continue PPI. Result Diagram: 03/19/18 0743 03/19/18 0743 Results 24hrs Laboratory Tests Test 03/19/18 18:36 03/19/18 19:13 03/19/18 19:27 03/19/18 21:42 Bedside Glucose 62 L 82 76 111 Test 03/20/18 07:53 Bedside Glucose 81 Exam/Review of Systems Vital Signs Vitals Vital Signs Date Temp Pulse Resp B/P (MAP) Pulse Ox O2 O2 Flow FiO2 Time Delivery Rate 03/20/18 78 08:33 03/20/18 100.3 16 152/67 91 07:34 (95) 03/19/18 Nasal 2.0 20:00 Cannula Intake and Output 03/19/18 03/19/18 03/20/18 1515:00 23:00 07:00 IntakeIntake Total 250 ml 100 ml OutputOutput Total 50 ml BalanceBalance 200 ml 100 ml Medications Medications Current Medications Ondansetron HCl (Zofran Inj) 4 mg Q6H PRN IV NAUSEA AND/OR VOMITING Last administered on 03/16/18 22:40; Admin Dose 4 MG; Start 03/16/18 at 18:30 Diphenhydramine HCl (Benadryl) 25 mg Q6H PRN IV ITCHING Last administered on 03/20/18 03:49; Admin Dose 25 MG; Start 03/16/18 at 18:30 Clonidine (Catapres) 0.1 mg Q6H PRN PO ELEVATED BLOOD PRESSURE Last administered on 03/18/18 02:50; Admin Dose 0.1 MG; Start 03/16/18 at 20:30 Insulin Aspart (Novolog Insulin Pen) NOVOLOG *MODERATE* ALGORITHM WITH MEALS BEDTIME SC ; Start 03/16/18 at 22:00 Calcitriol (Rocaltrol) 0.25 mcg DAILY PO Last administered on 03/18/18 08:15; Admin Dose 0.25 MCG; Start 03/17/18 at 09:00 Furosemide (Lasix) 40 mg BID PO Last administered on 03/19/18 20:46; Admin Dose 40 MG; Start 03/16/18 at 21:00 Levetiracetam (Keppra) 500 mg BID PO Last administered on 03/19/18 20:45; Admin Dose 500 MG; Start 03/16/18 at 21:00 Nifedipine (Procardia Xl) 30 mg DAILY PO Last administered on 03/18/18at 08:16; Admin Dose 30 MG; Start 03/17/18 at 09:00 Pantoprazole (Protonix Tab) 40 mg AC BREAKFAST PO Last administered on 03/20/18 06:28; Admin Dose 40 MG; Start 03/17/18 at 07:00 Quetiapine Fumarate (Seroquel) 300 mg DAILY PO Last administered on 03/18/18 08:15; Admin Dose 300 MG; Start 03/17/18 at 09:00 Sevelamer Carbonate (Renvela) 1.6 gm WITH MEALS PO Last administered on 03/18/18 18:03; Admin Dose 1.6 GM; Start 03/17/18 at 08:00 Miscellaneous Information 1 ea NOTE XX ; Start 03/16/18 at 21:30 Glucose (Glutose) 15 gm Q15M PRN PO DECREASED GLUCOSE; Start 03/16/18 at 21:30 Glucose (Glutose) 22.5 gm Q15M PRN PO DECREASED GLUCOSE; Start 03/16/18 at 21:30 Dextrose (D50w Syringe) 25 ml Q15M PRN IV DECREASED GLUCOSE; Start 03/16/18 at 21:30 Dextrose (D50w Syringe) 50 ml Q15M PRN IV DECREASED GLUCOSE; Start 03/16/18 at 21:30 Glucagon (Glucagen) 1 mg Q15M PRN IM DECREASED GLUCOSE; Start 03/16/18 at 21:30 Glucose (Glutose) 15 gm Q15M PRN BUCCAL DECREASED GLUCOSE; Start 03/16/18 at 21:30 Labetalol HCl (Normodyne) 200 mg BID PO Last administered on 03/19/18at 20:46; Admin Dose 200 MG; Start 03/16/18 at 22:00 Morphine Sulfate (morphine SULFATE (PF)) 4 mg Q4H PRN IV SEVERE PAIN LEVEL 7-10 Last administered on 03/20/18at 03:50; Admin Dose 4 MG; Start 03/17/18 at 02:00 Loperamide HCl (Imodium Cap) 2 mg Q6H PRN PO diarrhea Last administered on 03/20/18at 01:12; Admin Dose 2 MG; Start 03/17/18 at 03:30 Cholestyramine Resin (Questran) 1 pkt DAILY PO Last administered on 03/18/18at 08:15; Admin Dose 1 PKT; Start 03/17/18 at 09:00 Acetaminophen (Tylenol Tab) 650 mg Q6H PRN PO MILD PAIN(1-3)OR ELEVATED TEMP Last administered on 03/19/18at 07:55; Admin Dose 650 MG; Start 03/17/18 at 14:00 Hydralazine HCl (Apresoline) 25 mg Q6H PRN PO ELEVATED SYSTOLIC BP Last administered on 03/19/18at 18:13; Admin Dose 25 MG; Start 03/18/18 at 05:30 Heparin Sodium (Porcine) (Heparin (1000 Units/ml)) 2,300 unit AFTER DIALYSIS CATHETER Last administered on 03/19/18at 01:28; Admin Dose 2,300 UNIT; Start 03/18/18 at 22:00 Epoetin [place] (Epogen (Esrd)) 10,000 units MoWeFr@17 SC ; Start 03/19/18 at 17:00 Dextrose 1,000 ml @ 50 mls/hr Q20H IV Last administered on 03/19/18at 18:17; Admin Dose 50 MLS/HR; Start 03/19/18 at 16:30 Collagenase (Santyl) 1 applic DAILY TOP ; Start 03/19/18 at 19:30 Collagenase (Santyl) 1 applic PRN PRN TOP WHEN SOILED; Start 03/19/18 at 19:30 Hydralazine HCl (Apresoline) 10 mg Q6H PRN IV elevated BP ; Start 03/19/18 at 19:30 ERIC MOLINA DO Mar 20, 2018 08:39
[2018-03-20] MEDS: FUROSEMIDE 40 MG TAB PO SCH ×2 (09:00→20:30)
[2018-03-20] MEDS: LABETALOL 200 MG TAB PO SCH ×2 (09:00→20:29)
[2018-03-20] MEDS: QUETIAPINE 100 MG TAB PO SCH (09:00)
[2018-03-20] MEDS: CALCITRIOL 0.25 MCG CAP PO SCH (09:00)
[2018-03-20] MEDS: LEVETIRACETAM 500 MG TAB PO SCH ×2 (09:00→20:30)
[2018-03-20] MEDS: CHOLESTYRAMINE 4 GM PACKET PO SCH (09:00)
[2018-03-20] MEDS: NIFEdipine (XL) 30 MG TAB PO SCH (09:00)
[2018-03-20] MEDS: COLLAGENASE 5 GM (UD JAR) TOP SCH (09:37)
--- NOTE | 2018-03-20 11:38 | PN ---
Date/Time of Note Date/Time of Note DATE: 03/20/18 TIME: 11:38 Assessment/Plan VTE Prophylaxis Risk score (from Ns)>0 risk: 4 SCD applied (from Nsg): Yes Pharmacological prophylaxis: LMWH Lines/Catheters IV Catheter Type (from Nrsg): Mid Line Urinary Cath still in place: No Assessment/Plan Hospital Course 1) fluid overload - related to renal failure 2) renal failure - hemodialysis per nephrology 3) abdominal pain - work up and treatment per GI 4) diabetes - monitor blood sugar, insulin coverage as needed Result Diagram: 03/19/18 0743 03/19/18 0743 Results 24hrs Laboratory Tests Test 03/19/18 18:36 03/19/18 19:13 03/19/18 19:27 03/19/18 21:42 Bedside Glucose 62 L 82 76 111 Test 03/20/18 07:53 Bedside Glucose 81 Subjective 24 Hr Interval Summary Free Text/Dictation Patient upset about being kept npo between having dialysis catheter placement and ERCP Exam/Review of Systems Vital Signs Vitals Vital Signs Date Temp Pulse Resp B/P (MAP) Pulse Ox O2 O2 Flow FiO2 Time Delivery Rate 03/20/18 100.2 78 18 156/69 95 11:30 (98) 03/20/18 Nasal 2.0 07:40 Cannula Intake and Output 03/19/18 03/19/18 03/20/18 1515:00 23:00 07:00 IntakeIntake Total 250 ml 100 ml OutputOutput Total 50 ml BalanceBalance 200 ml 100 ml Exam Constitutional: well developed Head: normocephalic, atraumatic Neck: supple Respiratory: diminished breath sounds Cardiovascular: regular rate and rhythm Gastrointestinal: soft, non-tender Extremities: normal pulses Medications Medications Current Medications Ondansetron HCl (Zofran Inj) 4 mg Q6H PRN IV NAUSEA AND/OR VOMITING Last administered on 03/16/18at 22:40; Admin Dose 4 MG; Start 03/16/18 at 18:30 Diphenhydramine HCl (Benadryl) 25 mg Q6H PRN IV ITCHING Last administered on 03/20/18at 03:49; Admin Dose 25 MG; Start 03/16/18 at 18:30 Clonidine (Catapres) 0.1 mg Q6H PRN PO ELEVATED BLOOD PRESSURE Last administered on 03/18/18at 02:50; Admin Dose 0.1 MG; Start 03/16/18 at 20:30 Insulin Aspart (Novolog Insulin Pen) NOVOLOG *MODERATE* ALGORITHM WITH MEALS BEDTIME SC ; Start 03/16/18 at 22:00 Calcitriol (Rocaltrol) 0.25 mcg DAILY PO Last administered on 03/18/18at 08:15; Admin Dose 0.25 MCG; Start 03/17/18 at 09:00 Furosemide (Lasix) 40 mg BID PO Last administered on 03/19/18at 20:46; Admin Dose 40 MG; Start 03/16/18 at 21:00 Levetiracetam (Keppra) 500 mg BID PO Last administered on 03/19/18at 20:45; Admin Dose 500 MG; Start 03/16/18 at 21:00 Nifedipine (Procardia Xl) 30 mg DAILY PO Last administered on 03/18/18at 08:16; Admin Dose 30 MG; Start 03/17/18 at 09:00 Pantoprazole (Protonix Tab) 40 mg AC BREAKFAST PO Last administered on 03/20/18at 06:28; Admin Dose 40 MG; Start 03/17/18 at 07:00 Quetiapine Fumarate (Seroquel) 300 mg DAILY PO Last administered on 03/18/18at 08:15; Admin Dose 300 MG; Start 03/17/18 at 09:00 Sevelamer Carbonate (Renvela) 1.6 gm WITH MEALS PO Last administered on 03/18/18at 18:03; Admin Dose 1.6 GM; Start 03/17/18 at 08:00 Miscellaneous Information 1 ea NOTE XX ; Start 03/16/18 at 21:30 Glucose (Glutose) 15 gm Q15M PRN PO DECREASED GLUCOSE; Start 03/16/18 at 21:30 Glucose (Glutose) 22.5 gm Q15M PRN PO DECREASED GLUCOSE; Start 03/16/18 at 21:30 Dextrose (D50w Syringe) 25 ml Q15M PRN IV DECREASED GLUCOSE; Start 03/16/18 at 21:30 Dextrose (D50w Syringe) 50 ml Q15M PRN IV DECREASED GLUCOSE; Start 03/16/18 at 21:30 Glucagon (Glucagen) 1 mg Q15M PRN IM DECREASED GLUCOSE; Start 03/16/18 at 21:30 Glucose (Glutose) 15 gm Q15M PRN BUCCAL DECREASED GLUCOSE; Start 03/16/18 at 21:30 Labetalol HCl (Normodyne) 200 mg BID PO Last administered on 03/19/18at 20:46; Admin Dose 200 MG; Start 03/16/18 at 22:00 Morphine Sulfate (morphine SULFATE (PF)) 4 mg Q4H PRN IV SEVERE PAIN LEVEL 7-10 Last administered on 03/20/18 09:37; Admin Dose 4 MG; Start 03/17/18 at 02:00 Loperamide HCl (Imodium Cap) 2 mg Q6H PRN PO diarrhea Last administered on 03/20/18 01:12; Admin Dose 2 MG; Start 03/17/18 at 03:30 Cholestyramine Resin (Questran) 1 pkt DAILY PO Last administered on 03/18/18at 08:15; Admin Dose 1 PKT; Start 03/17/18 at 09:00 Acetaminophen (Tylenol Tab) 650 mg Q6H PRN PO MILD PAIN(1-3)OR ELEVATED TEMP Last administered on 03/19/18at 07:55; Admin Dose 650 MG; Start 03/17/18 at 14:00 Hydralazine HCl (Apresoline) 25 mg Q6H PRN PO ELEVATED SYSTOLIC BP Last administered on 03/19/18at 18:13; Admin Dose 25 MG; Start 03/18/18 at 05:30 Heparin Sodium (Porcine) (Heparin (1000 Units/ml)) 2,300 unit AFTER DIALYSIS CATHETER Last administered on 03/19/18at 01:28; Admin Dose 2,300 UNIT; Start 03/18/18 at 22:00 Epoetin [place] (Epogen (Esrd)) 10,000 units MoWeFr@17 SC ; Start 03/19/18 at 17:00 Dextrose 1,000 ml @ 50 mls/hr Q20H IV Last administered on 03/19/18at 18:17; Admin Dose 50 MLS/HR; Start 03/19/18 at 16:30 Collagenase (Santyl) 1 applic DAILY TOP Last administered on 03/20/18 09:37; Admin Dose 1 APPLIC; Start 03/19/18 at 19:30 Collagenase (Santyl) 1 applic PRN PRN TOP WHEN SOILED; Start 12/28/18 at 19:30 Hydralazine HCl (Apresoline) 10 mg Q6H PRN IV elevated BP ; Start 03/19/18 at 19:30 Ferric Sodium Gluconate Complex 125 mg/Sodium Chloride 110 ml @ 110 mls/hr DAILY@1300 IVPB ; Start 03/20/18 at 13:00; Stop 03/24/18 at 13:59 JF [facility] Mar 20, 2018 11:38
--- NOTE | 2018-03-20 13:09 | NUR ---
NUTRITION NOTE: Consult received 2/2 pressure injuries. Pt noted with stage 2 vs stage 3 p/u on sacrococcyx. NPO currently for ERCP. Prior to NPO, pt was eating 50-100% at meals. Planning for HD today. Pt with increased protein and micronutrient needs. RD RECOMMENDATIONS: 1. Recommend to add daily Renavite to promote wound healing. 2. Discussed option of adding Prosource once diet resumes. Pt reports she is aware her skin is "breaking down" and she is agreeable to trying Prosource BID. Will offer when PO advances.
[2018-03-20] MEDS: DEXTROSE 5% 1,000 ML IV SCH (13:26)
[2018-03-20] MEDS: SOD FERRIC GLUC COMPLX 125 MG in SOD CHLORIDE 0.9% 100 ML IVPB SCH (13:26)
--- NOTE | 2018-03-20 13:42 | NUR ---
WOUND CONSULT NOTE: This is a 52 year of female w/ hx of DM with sequelae of ESRD on HD (M-W-F) who initially presented with complaints of shortness of breath and worsening abdominal ascites. Per record patient left AMA on the morning of 03/16/18 and presented back to the emergency room later in the afternoon to be re-admitted to the hospital for recurrent symptoms. Patient has severely dry skin, bilateral heels are significantly cracked with fissures and thick adherent flakes but intact. Patient is able to turn with minimal assistance. ASSESSMENT AND RECOMMENDATIONS: 1. Sacrococcyx Healed Stage 3 Pressure Injury. Documented and photographed on initial admission prior to AMA discharge. Wound base is pink dry and epithelialized tissue measuring approx 1.5x2.2x0cm. Condition is present on admission per original documentation. The periwound is very dry, clean, and intact without erythema, borders even and flush with skin. -Cleanse with mild soap and water and apply Venelex to sacrococcyx. Cover area with foam border dressing for protection -Recommend antipruritic ointment and continue to apply body moisturizer all over skin for hydration and protection -Encourage and Reposition every 2 hours and PRN. -Float heels off bed with pillows -Inspect heels every shift and notify photographic double for any changes Patient was seen and examined and plan of care and recommendations were discussed with primary RNJose. RN to obtain additional recommendation orders from MD. Thank you Rayne Flores, RN, MSN, CCRN, WCC
--- NOTE | 2018-03-20 15:16 | OPR ---
Date/Time of Note Date/Time of Note DATE: 03/20/18 TIME: 15:12 Operative Report Procedure Date: Mar 19, 2018 Preoperative Diagnosis Clotted left upper extremity AV graft Postoperative Diagnosis same Operation/Procedure Performed 1 thrombectomy and revision left upper extremity AV graft 2 angioplasty left axillary vein 4 x 40 mm balloon 3 left upper extremity venogram 4 interpretation supervision of the left upper extremity venogram 5 fluoroscopy Surgeon see signature line [employer] Lead none Anesthesia Type: MAC Estimated Blood Loss: 0 - 10 ml's Transfusion none Specimen None Grafts/Implants none Complications none Disposition: PACU Procedure Description Patient was placed in supine position prepped and draped in usual sterile fashion 1% lidocaine was discharged the operation for local anesthesia I made a 2 cm incision on the arterial end of the AV graft which was above the left antecubital fossa incision was taken down to subcutaneous tissue which was then opened using electrocautery left arm AV graft was identified vessel loops were passed around it was opened through a 5 mm graftotomy thrombectomy of the arterial limb of the graft was performed using a 4 Czech Cynthia catheter arterial inflow appeared to be strong I could not advance the Cynthia catheter beyond the venous anastomosis which was in the axilla venogram was done which was showed 100% occlusion of the venous anastomosis at the guidewire would not advance to either I then made a 3 cm incision in the left axilla incision was taken down to subcutaneous tissue which was then opened using electrocautery the venous anastomosis was identified the graft was opened just proximal to the venous anastomosis I tried to advance a guidewire or Cynthia catheter into the venous anastomosis distally which was not successful proximally the the anastomosis was open but stenotic which was then angioplastied using a 4 x 40 mm balloon the distal anastomosis was inspected again and the axillary vein appeared to be sclerotic distal to the anastomosis both graftotomies were closed using 6-0 Prolene continuous suture technique the wounds were irrigated again and closed in 2 layers of 2-0 Vicryl suture for the deep 3-0 Vicryl suture for running subcuticular skin closure the patient did have a V/Q bruit over the newly constructed graft however this patient will probably be needed revision of the graft and possibly a new fistula on the right side patient tolerated procedure well REGINO SANTOS MD Mar 20, 2018 15:16
--- NOTE | 2018-03-20 15:23 | CONS ---
Date/Time of Note Date/Time of Note DATE: 03/20/18 TIME: 15:21 Assessment/Plan Assessment/Plan Assessment/Plan Assessment/Plan Hospital Course 52 yo female with ESRD and diarrhea left AMA 03/16 and returned with abdominal pain. 1. Abdominal pain -lipase mildly elevated 03/16 420 2. Diarrhea -O/P negative. C diff negative 3. Mildly elevated lipase with mid abd pain radiating to back 4. Mild generalized small and large bowel wall thickening which per CT 03/01 could represent third spacing. 5. Hemorrhoids per pt 6. Mild hepatomegaly 7. Anemia, acute -Ferritin high, Iron wnl, TIBC low, B12 wnl, folate wnl, FOB negative -no evidence of GI bleeding 8. End stage renal disease on HD 9. Cardiomegaly with mild lower lung pulmonary edema with small left effusion and mild diffuse ascites 10. Anasarca and ascites -03/15 paracentesis removed 2.9 liters 11. Diabetes 12. Hypertension 13. Elevated alk phos 14. Mildly dilated biliary system with CBD measuring 10mm I discussed MRI findings with Dr. Josh Matute patient definitely is a stone in the distal part of the bile duct 15. Chronic liver disease MRCP 03/18: 1. Enlarged liver with suggestion of mild liver surface nodularity. Chronic hepatic parenchymal disease is suspected. Diffusely decreased T2 signal intensi ty of the liver and spleen can represent hemosiderin deposition likely in the setting of secondary hemochromatosis. 2. Large volume ascites. 3. Wall thickening of the gallbladder without gallstones. This likely relates to presence of large volume ascites. 4. Wall thickening of multiple loops of small bowel may also relate to presence of ascites. 5. Patient is a stone in the distal part of the bile duct and this was verified with Dr. Josh Matute and this might be the cause of her abdominal pain, itching, elevated alkaline phosphatase 6. Patient is a significant drop in hematocrit we will repeated if it continues to drop then will give 1 unit of packed cell RBC before ERCP Result Diagram: 03/19/18 0743 03/19/18 0743 Results 24hrs Laboratory Tests Test 03/19/18 18:36 03/19/18 19:13 03/19/18 19:27 03/19/18 21:42 Bedside Glucose 62 L 82 76 111 Test 03/20/18 07:53 03/20/18 11:52 Bedside Glucose 81 72 Consultation Date/Type/Reason Admit Date/Time Mar 16, 2018 at 14:01 Initial Consult Date 24 HR Interval Summary Free Text/Dictation Patient complains of abdominal pain confined to the right upper quadrant and epigastric area She also complains of constant itching Exam/Review of Systems Vital Signs Vitals Vital Signs Date Temp Pulse Resp B/P (MAP) Pulse Ox O2 O2 Flow FiO2 Time Delivery Rate 03/20/18 79 12:16 03/20/18 100.2 18 156/69 95 11:30 (98) 03/20/18 Nasal 2.0 07:40 Cannula Intake and Output 03/19/18 03/19/18 03/20/18 1515:00 23:00 07:00 IntakeIntake Total 250 ml 100 ml OutputOutput Total 50 ml BalanceBalance 200 ml 100 ml Exam Constitutional: alert, oriented, well developed Psych: no complaints, nl mood/affect Head: normocephalic, atraumatic Eyes: nl conjunctiva, EOMI, nl lids, nl sclera, PERRL ENMT: nl external ears & nose, nl lips & teeth, nl nasal mucosa & septum Neck: supple, non-tender Respiratory: clear to auscultation, normal air movement Cardiovascular: regular rate and rhythm, nl pulses Gastrointestinal: soft, nl liver, spleen, non-tender Musculoskeletal: nl extremities to inspection, nl gait and stance Extremities: normal pulses Neurological: [employer] II-XII intact, nl mental status, nl speech, nl strength Skin: nl turgor; No rash or lesions Lymph: nl lymph nodes Medications Medications Current Medications Ondansetron HCl (Zofran Inj) 4 mg Q6H PRN IV NAUSEA AND/OR VOMITING Last administered on 03/16/18at 22:40; Admin Dose 4 MG; Start 03/16/18 at 18:30 Diphenhydramine HCl (Benadryl) 25 mg Q6H PRN IV ITCHING Last administered on 03/20/18at 11:54; Admin Dose 25 MG; Start 03/16/18 at 18:30 Clonidine (Catapres) 0.1 mg Q6H PRN PO ELEVATED BLOOD PRESSURE Last administered on 03/18/18at 02:50; Admin Dose 0.1 MG; Start 03/16/18 at 20:30 Insulin Aspart (Novolog Insulin Pen) NOVOLOG *MODERATE* ALGORITHM WITH MEALS BEDTIME SC ; Start 03/16/18 at 22:00 Calcitriol (Rocaltrol) 0.25 mcg DAILY PO Last administered on 03/18/18at 08:15; Admin Dose 0.25 MCG; Start 03/17/18 at 09:00 Furosemide (Lasix) 40 mg BID PO Last administered on 03/19/18at 20:46; Admin Dose 40 MG; Start 03/16/18 at 21:00 Levetiracetam (Keppra) 500 mg BID PO Last administered on 03/19/18at 20:45; Admin Dose 500 MG; Start 03/16/18 at 21:00 Nifedipine (Procardia Xl) 30 mg DAILY PO Last administered on 03/18/18at 08:16; Admin Dose 30 MG; Start 03/17/18 at 09:00 Pantoprazole (Protonix Tab) 40 mg AC BREAKFAST PO Last administered on 03/20/18at 06:28; Admin Dose 40 MG; Start 03/17/18 at 07:00 Quetiapine Fumarate (Seroquel) 300 mg DAILY PO Last administered on 03/18/18at 08:15; Admin Dose 300 MG; Start 03/17/18 at 09:00 Sevelamer Carbonate (Renvela) 1.6 gm WITH MEALS PO Last administered on 03/18at 18:03; Admin Dose 1.6 GM; Start 03/17/18 at 08:00 Miscellaneous Information 1 ea NOTE XX ; Start 03/16/18 at 21:30 Glucose (Glutose) 15 gm Q15M PRN PO DECREASED GLUCOSE; Start 03/16/18 at 21:30 Glucose (Glutose) 22.5 gm Q15M PRN PO DECREASED GLUCOSE; Start 03/16/18 at 21:30 Dextrose (D50w Syringe) 25 ml Q15M PRN IV DECREASED GLUCOSE; Start 03/16/18 at 21:30 Dextrose (D50w Syringe) 50 ml Q15M PRN IV DECREASED GLUCOSE; Start 03/16/18 at 21:30 Glucagon (Glucagen) 1 mg Q15M PRN IM DECREASED GLUCOSE; Start 03/16/18 at 21:30 Glucose (Glutose) 15 gm Q15M PRN BUCCAL DECREASED GLUCOSE; Start 03/16/18 at 21:30 Labetalol HCl (Normodyne) 200 mg BID PO Last administered on 03/19/18 20:46; Admin Dose 200 MG; Start 03/16/18 at 22:00 Morphine Sulfate (morphine SULFATE (PF)) 4 mg Q4H PRN IV SEVERE PAIN LEVEL 7-10 Last administered on 03/20/18 14:51; Admin Dose 4 MG; Start 03/17/18 at 02:00 Loperamide HCl (Imodium Cap) 2 mg Q6H PRN PO diarrhea Last administered on 03/20/18 01:12; Admin Dose 2 MG; Start 03/17/18 at 03:30 Cholestyramine Resin (Questran) 1 pkt DAILY PO Last administered on 03/18/18at 08:15; Admin Dose 1 PKT; Start 03/17/18 at 09:00 Acetaminophen (Tylenol Tab) 650 mg Q6H PRN PO MILD PAIN(1-3)OR ELEVATED TEMP Last administered on 03/19/18 07:55; Admin Dose 650 MG; Start 03/17/18 at 14:00 Hydralazine HCl (Apresoline) 25 mg Q6H PRN PO ELEVATED SYSTOLIC BP Last administered on 03/19/18 18:13; Admin Dose 25 MG; Start 03/18/18 at 05:30 Heparin Sodium (Porcine) (Heparin (1000 Units/ml)) 2,300 unit AFTER DIALYSIS CATHETER Last administered on 03/19/18at 01:28; Admin Dose 2,300 UNIT; Start 03/18/18 at 22:00 Epoetin [place] (Epogen (Esrd)) 10,000 units MoWeFr@17 SC ; Start 03/19/18 at 17:00 Dextrose 1,000 ml @ 50 mls/hr Q20H IV Last administered on 03/20/18 13:26; Admin Dose 50 MLS/HR; Start 03/19/18 at 16:30 Collagenase (Santyl) 1 applic DAILY TOP Last administered on 03/20/18at 09:37; Admin Dose 1 APPLIC; Start 03/19/18 at 19:30 Collagenase (Santyl) 1 applic PRN PRN TOP WHEN SOILED; Start 03/19/18 at 19:30 Hydralazine HCl (Apresoline) 10 mg Q6H PRN IV elevated BP ; Start 03/19/18 at 19:30 Ferric Sodium Gluconate Complex 125 mg/Sodium Chloride 110 ml @ 110 mls/hr DAILY@1300 IVPB Last administered on 03/20/18at 13:26; Admin Dose 110 MLS/HR; Start 03/20/18 at 13:00; Stop 03/24/18 at 13:59 LEODAN SONI MD Mar 20, 2018 15:23
[2018-03-21] VITALS (26 sets, daily range): BP systolic 130–183; BP diastolic 57–81; PULSE 62–99; RESP 10–20
[2018-03-21] MEDS: DIPHENHYDRAMINE 50 MG INJ IV PRN ×3 (00:05→18:37)
[2018-03-21] MEDS: morphine SULFATE/PF (2 MG/2 ML) SYG IV PRN ×4 (04:10→21:52)
[2018-03-21] MEDS ORDERED: SEVOFLURANE 15 MIN ONE (07:00)
[2018-03-21] MEDS ORDERED: INDOMETHACIN 50 MG SUPP PR ONE (07:00)
[2018-03-21] MEDS ORDERED: GLUCAGON 1 MG INJ ONE ×2 (07:00→12:10)
[2018-03-21] MEDS: PANTOPRAZOLE (EC) 40 MG TAB PO SCH (07:23)
--- NOTE | 2018-03-21 07:23 | NUR ---
EOSS: Patient alert and oriented x4, vital signs stable, no acute distress noted. Patient kept NPO since midnight. Pain assessed and medication given as needed. All needs anticipated and met.
--- NOTE | 2018-03-21 07:42 | PN ---
Date/Time of Note Date/Time of Note DATE: 03/21/18 TIME: 07:41 Assessment/Plan VTE Prophylaxis Risk score (from Nsg)>0 risk: 4 SCD applied (from Nsg): Yes Pharmacological prophylaxis: other Lines/Catheters IV Catheter Type (from Nrsg): Mid Line Urinary Cath still in place: No Assessment/Plan Hospital Course renal follow up SUBJECTIVE: events were reviewed. d/w Dr Bledsoe OBJECTIVE: HEENT: Head is normocephalic. NECK: Supple. HEART: Regular rate. LUNGS: Show diminished breath sounds at base. ABDOMEN: Soft, nontender to palpation without rebound or guarding. EXTREMITIES: Negative for clubbing, cyanosis. No edema. DERMATOLOGIC: No rashes. MUSCULOSKELETAL: No joint effusion. NEUROLOGIC: No change in exam. MEDICATIONS: Have been reviewed. ASSESSMENT AND PLAN: 1. End-stage renal disease. Plan for dialysis in 1-2 days 2. Anemia: will add ferrlicet IV. continue epogen 3. Hyperkalemia, resolved. 4. Volume overload. Continue ultrafiltration dialysis. 5. Diabetes. Continue current insulin regimen. 6. Anemia. Monitor hemoglobin and hematocrit levels. We will continue Epogen. 7. Mineral bone disorder. Monitor calcium and phosphorus levels. 8. Encephalopathy, resolved. 9. Fever and systemic inflammatory response syndrome. Etiology is unclear. Follow up cultures. Consider empiric antibiotics. Defer to primary team. 10. Hypertension. Continue current blood pressure regimen. 11. Gastritis. Continue PPI. Result Diagram: 03/19/18 0743 03/19/18 0743 Results 24hrs Laboratory Tests Test 03/20/18 07:53 03/20/18 11:52 03/20/18 17:09 03/20/18 20:40 Bedside Glucose 81 72 79 117 Exam/Review of Systems Vital Signs Vitals Vital Signs Date Temp Pulse Resp B/P (MAP) Pulse Ox O2 O2 Flow FiO2 Time Delivery Rate 03/21/18 98.7 79 18 146/59 96 Room Air 04:03 (88) 03/20/18 2.0 20:00 Intake and Output 03/20/18 03/20/18 03/21/18 1515:00 23:00 07:00 IntakeIntake Total 860 ml OutputOutput Total 2600 ml BalanceBalance -1740 ml Medications Medications Current Medications Ondansetron HCl (Zofran Inj) 4 mg Q6H PRN IV NAUSEA AND/OR VOMITING Last administered on 03/16/18 22:40; Admin Dose 4 MG; Start 03/16/18 at 18:30 Diphenhydramine HCl (Benadryl) 25 mg Q6H PRN IV ITCHING Last administered on 03/21/18 06:09; Admin Dose 25 MG; Start 03/16/18 at 18:30 Clonidine (Catapres) 0.1 mg Q6H PRN PO ELEVATED BLOOD PRESSURE Last administered on 03/18/18 02:50; Admin Dose 0.1 MG; Start 03/16/18 at 20:30 Insulin Aspart (Novolog Insulin Pen) NOVOLOG *MODERATE* ALGORITHM WITH MEALS BEDTIME SC ; Start 03/16/18 at 22:00 Calcitriol (Rocaltrol) 0.25 mcg DAILY PO Last administered on 03/18/18 08:15; Admin Dose 0.25 MCG; Start 03/17/18 at 09:00 Furosemide (Lasix) 40 mg BID PO Last administered on 03/20/18 20:30; Admin Dose 40 MG; Start 03/16/18 at 21:00 Levetiracetam (Keppra) 500 mg BID PO Last administered on 03/20/18 20:30; Admin Dose 500 MG; Start 03/16/18 at 21:00 Nifedipine (Procardia Xl) 30 mg DAILY PO Last administered on 03/18/18 08:16; Admin Dose 30 MG; Start 03/17/18 at 09:00 Pantoprazole (Protonix Tab) 40 mg AC BREAKFAST PO Last administered on 03/20/18 06:28; Admin Dose 40 MG; Start 03/17/18 at 07:00 Quetiapine Fumarate (Seroquel) 300 mg DAILY PO Last administered on 03/18/18 08:15; Admin Dose 300 MG; Start 03/17/18 at 09:00 Sevelamer Carbonate (Renvela) 1.6 gm WITH MEALS PO Last administered on 03/20/18 18:05; Admin Dose 1.6 GM; Start 03/17/18 at 08:00 Miscellaneous Information 1 ea NOTE XX ; Start 03/16/18 at 21:30 Glucose (Glutose) 15 gm Q15M PRN PO DECREASED GLUCOSE; Start 03/16/18 at 21:30 Glucose (Glutose) 22.5 gm Q15M PRN PO DECREASED GLUCOSE; Start 03/16/18 at 21:30 Dextrose (D50w Syringe) 25 ml Q15M PRN IV DECREASED GLUCOSE; Start 03/16/18 at 21:30 Dextrose (D50w Syringe) 50 ml Q15M PRN IV DECREASED GLUCOSE; Start 03/16/18 at 21:30 Glucagon (Glucagen) 1 mg Q15M PRN IM DECREASED GLUCOSE; Start 03/16/18 at 21:30 Glucose (Glutose) 15 gm Q15M PRN BUCCAL DECREASED GLUCOSE; Start 03/16/18 at 21:30 Labetalol HCl (Normodyne) 200 mg BID PO Last administered on 03/20/18at 20:29; Admin Dose 200 MG; Start 03/16/18 at 22:00 Morphine Sulfate (morphine SULFATE (PF)) 4 mg Q4H PRN IV SEVERE PAIN LEVEL 7-10 Last administered on 03/21/18at 04:10; Admin Dose 4 MG; Start 03/17/18 at 02:00 Loperamide HCl (Imodium Cap) 2 mg Q6H PRN PO diarrhea Last administered on 03/20/18at 01:12; Admin Dose 2 MG; Start 03/17/18 at 03:30 Cholestyramine Resin (Questran) 1 pkt DAILY PO Last administered on 03/18/18at 08:15; Admin Dose 1 PKT; Start 03/17/18 at 09:00 Acetaminophen (Tylenol Tab) 650 mg Q6H PRN PO MILD PAIN(1-3)OR ELEVATED TEMP Last administered on 03/19/18at 07:55; Admin Dose 650 MG; Start 03/17/18 at 14:00 Hydralazine HCl (Apresoline) 25 mg Q6H PRN PO ELEVATED SYSTOLIC BP Last administered on 03/19/18at 18:13; Admin Dose 25 MG; Start 03/18/18 at 05:30 Heparin Sodium (Porcine) (Heparin (1000 Units/ml)) 2,300 unit AFTER DIALYSIS CATHETER Last administered on 03/19/18at 01:28; Admin Dose 2,300 UNIT; Start 03/18/18 at 22:00 Epoetin [place] (Epogen (Esrd)) 10,000 units MoWeFr@17 SC ; Start 03/19/18 at 17:00 Dextrose 1,000 ml @ 50 mls/hr Q20H IV Last administered on 03/20/18at 13:26; Admin Dose 50 MLS/HR; Start 03/19/18 at 16:30 Collagenase (Santyl) 1 applic DAILY TOP Last administered on 03/20/18at 09:37; Admin Dose 1 APPLIC; Start 03/19/18 at 19:30 Collagenase (Santyl) 1 applic PRN PRN TOP WHEN SOILED; Start 03/19/18 at 19:30 Hydralazine HCl (Apresoline) 10 mg Q6H PRN IV elevated BP ; Start 03/19/18 at 19:30 Ferric Sodium Gluconate Complex 125 mg/Sodium Chloride 110 ml @ 110 mls/hr DAILY@1300 IVPB Last administered on 03/20/18at 13:26; Admin Dose 110 MLS/HR; Start 03/20/18 at 13:00; Stop 03/24/18 at 13:59 ERIC MOLINA DO Mar 21, 2018 07:42
[2018-03-21] MEDS: INSULIN ASPART [NOVOLOG] 3 ML PEN SC SCH ×4 (07:55→21:00)
[2018-03-21] MEDS: SEVELAMER CARBONATE 0.8 GM PKT PO SCH ×3 (07:55→17:49)
[2018-03-21] MEDS: COLLAGENASE 5 GM (UD JAR) TOP SCH (08:05)
[2018-03-21] MEDS: LEVETIRACETAM 500 MG TAB PO SCH ×2 (08:08→21:16)
[2018-03-21] MEDS: LABETALOL 200 MG TAB PO SCH ×2 (08:08→21:17)
[2018-03-21] MEDS: NIFEdipine (XL) 30 MG TAB PO SCH (08:08)
[2018-03-21] MEDS: DEXTROSE 5% 1,000 ML IV SCH (08:08)
[2018-03-21] MEDS: FUROSEMIDE 40 MG TAB PO SCH ×2 (08:08→21:16)
[2018-03-21] MEDS: CHOLESTYRAMINE 4 GM PACKET PO SCH (08:08)
[2018-03-21] MEDS: QUETIAPINE 100 MG TAB PO SCH (08:09)
[2018-03-21] MEDS: CALCITRIOL 0.25 MCG CAP PO SCH (08:09)
[2018-03-21] MEDS ORDERED: IOHEXOL 300MG/ML 30 ML BTL ONE (10:12)
--- NOTE | 2018-03-21 10:15 | PREAC ---
Date/Time of Note Date/Time of Note DATE: 03/21/18 TIME: 10:13 Anesthesia Eval and Record Evaluation Time Pre-Procedure Interview DATE: 03/21/18 TIME: 10:13 Age 52 Sex female NPO: 8 hrs Preoperative diagnosis Billiary stones Planned procedure ERCP Past Medical History Past Medical History: Includes Cardio: HTN, Dyslipidemia Endo: Diabetes Renal: ESRD on dialysis Heme: Anemia Surgery & Anesthesia Issues No known issue Meds Anticoagulation: No Beta Magy within 24 hr: Yes Active Scripts Diphenhydramine Hcl* (Benadryl*) 25 Mg Cap, 25 MG PO Q6H PRN for ITCHING, #30 CAP Prov:BLAKE MORALES 12/10/17 Labetalol Hcl* (Labetalol Hcl*) 100 Mg Tablet, 200 MG PO BID for 30 Days, TAB Prov:KAILAGRACIELABLAKE 12/10/17 Nifedipine (Procardia Xl) 30 Mg Tab.er.24, 30 MG PO DAILY for 30 Days, TAB Prov:BLAKE MORALES 12/10/17 Sevelamer Carbonate* (Renvela*) 800 Mg Tablet, 1600 MG PO WITH MEALS for 30 Days, TAB Prov:BLAKE MORALES 12/10/17 Reported Medications Calcitriol* (Calcitriol*) 0.25 Mcg Capsule, 0.25 MG PO DAILY for 30 Days TAKE ONE CAPSULE BY MOUTH EVERYDAY 03/01/18 Quetiapine Fumarate* (Seroquel*) 300 Mg Tablet, 300 MG PO DAILY, TAB 12/07/17 Pantoprazole* (Protonix*) 40 Mg Tablet.dr, 40 MG PO AC BREAKFAST, TAB 12/07/17 Furosemide* (Furosemide*) 40 Mg Tablet, 40 MG PO BID, TAB 12/07/17 Levetiracetam* (Keppra*) 500 Mg Tablet, 500 MG PO BID, TAB 12/07/17 Current Medications Ondansetron HCl (Zofran Inj) 4 mg Q6H PRN IV NAUSEA AND/OR VOMITING Last administered on 03/16/18at 22:40; Admin Dose 4 MG; Start 03/16/18 at 18:30 Diphenhydramine HCl (Benadryl) 25 mg Q6H PRN IV ITCHING Last administered on 03/21/18at 06:09; Admin Dose 25 MG; Start 03/16/18 at 18:30 Clonidine (Catapres) 0.1 mg Q6H PRN PO ELEVATED BLOOD PRESSURE Last administered on 03/18/18at 02:50; Admin Dose 0.1 MG; Start 03/16/18 at 20:30 Insulin Aspart (Novolog Insulin Pen) NOVOLOG *MODERATE* ALGORITHM WITH MEALS BEDTIME SC ; Start 03/16/18 at 22:00 Calcitriol (Rocaltrol) 0.25 mcg DAILY PO Last administered on 03/18/18at 08:15; Admin Dose 0.25 MCG; Start 03/17/18 at 09:00 Furosemide (Lasix) 40 mg BID PO Last administered on 03/20/18at 20:30; Admin Dose 40 MG; Start 03/16/18 at 21:00 Levetiracetam (Keppra) 500 mg BID PO Last administered on 03/20/18at 20:30; Admin Dose 500 MG; Start 03/16/18 at 21:00 Nifedipine (Procardia Xl) 30 mg DAILY PO Last administered on 03/18/18at 08:16; Admin Dose 30 MG; Start 03/17/18 at 09:00 Pantoprazole (Protonix Tab) 40 mg AC BREAKFAST PO Last administered on 03/20/18at 06:28; Admin Dose 40 MG; Start 03/17/18 at 07:00 Quetiapine Fumarate (Seroquel) 300 mg DAILY PO Last administered on 03/18/18at 08:15; Admin Dose 300 MG; Start 03/17/18 at 09:00 Sevelamer Carbonate (Renvela) 1.6 gm WITH MEALS PO Last administered on 03/20/18at 18:05; Admin Dose 1.6 GM; Start 03/17/18 at 08:00 Miscellaneous Information 1 ea NOTE XX ; Start 03/16/18 at 21:30 Glucose (Glutose) 15 gm Q15M PRN PO DECREASED GLUCOSE; Start 03/16/18 at 21:30 Glucose (Glutose) 22.5 gm Q15M PRN PO DECREASED GLUCOSE; Start 03/16/18 at 21:30 Dextrose (D50w Syringe) 25 ml Q15M PRN IV DECREASED GLUCOSE; Start 03/16/18 at 21:30 Dextrose (D50w Syringe) 50 ml Q15M PRN IV DECREASED GLUCOSE; Start 03/16/18 at 21:30 Glucagon (Glucagen) 1 mg Q15M PRN IM DECREASED GLUCOSE; Start 03/16/18 at 21:30 Glucose (Glutose) 15 gm Q15M PRN BUCCAL DECREASED GLUCOSE; Start 03/16/18 at 21:30 Labetalol HCl (Normodyne) 200 mg BID PO Last administered on 03/20/18at 20:29; Admin Dose 200 MG; Start 03/16/18 at 22:00 Morphine Sulfate (morphine SULFATE (PF)) 4 mg Q4H PRN IV SEVERE PAIN LEVEL 7-10 Last administered on 03/21/18 08:05; Admin Dose 4 MG; Start 03/17/18 at 02:00 Loperamide HCl (Imodium Cap) 2 mg Q6H PRN PO diarrhea Last administered on 03/20/18 01:12; Admin Dose 2 MG; Start 03/17/18 at 03:30 Cholestyramine Resin (Questran) 1 pkt DAILY PO Last administered on 03/18/18 08:15; Admin Dose 1 PKT; Start 03/17/18 at 09:00 Acetaminophen (Tylenol Tab) 650 mg Q6H PRN PO MILD PAIN(1-3)OR ELEVATED TEMP Last administered on 03/19/18 07:55; Admin Dose 650 MG; Start 03/17/18 at 14:00 Hydralazine HCl (Apresoline) 25 mg Q6H PRN PO ELEVATED SYSTOLIC BP Last administered on 03/19/18 18:13; Admin Dose 25 MG; Start 03/18/18 at 05:30 Heparin Sodium (Porcine) (Heparin (1000 Units/ml)) 2,300 unit AFTER DIALYSIS CATHETER Last administered on 03/19/18 01:28; Admin Dose 2,300 UNIT; Start 03/18/18 at 22:00 Epoetin Clinton (Epogen (Esrd)) 10,000 units MoWeFr@17 SC ; Start 03/19/18 at 17:00 Dextrose 1,000 ml @ 50 mls/hr Q20H IV Last administered on 03/21/18 08:08; Admin Dose 50 MLS/HR; Start 03/19/18 at 16:30 Collagenase (Santyl) 1 applic DAILY TOP Last administered on 03/21/18 08:05; Admin Dose 1 APPLIC; Start 03/19/18 at 19:30 Collagenase (Santyl) 1 applic PRN PRN TOP WHEN SOILED; Start 03/19/18 at 19:30 Hydralazine HCl (Apresoline) 10 mg Q6H PRN IV elevated BP ; Start 03/19/18 at 19:30 Ferric Sodium Gluconate Complex 125 mg/Sodium Chloride 110 ml @ 110 mls/hr DAILY@1300 IVPB Last administered on 03/20/18at 13:26; Admin Dose 110 MLS/HR; Start 03/20/18 at 13:00; Stop 03/24/18 at 13:59 Meds reviewed: Yes Allergies Coded Allergies: No Known Allergy (Unverified , 03/16/18) Allergies Reviewed: Yes Labs/Studies Labs Reviewed: Reviewed by anesthesiologist Result Diagram: 03/21/18 0737 03/21/18 0737 Laboratory Tests 03/21/18 07:37 Blood Bank Test 03/21/18 09:36 Antibody Screen NEGATIVE Blood Product Summary Counts Blood Type AB POSITIVE Crossmatch Red Blood Cells test: N/A Pre-procedure Exam Last vitals Vital Signs Date Temp Pulse Resp B/P (MAP) Pulse Ox O2 O2 Flow FiO2 Time Delivery Rate 03/21/18 83 08:46 03/21/18 99.7 19 155/74 100 07:42 (101) 03/21/18 Nasal 2.0 07:40 Cannula Airway: Adequate mouth opening, Adequate thyromental dist Mallampati: Mallampati II Teeth: Normal Lung: Normal Heart: Normal ASA Physical Status ASA physical status: 3 Emergency: E Planned Anesthetic General/MAC: ETT Pre-operative Attestations Prior to commencing anesthesia and surgery, the patient was re-evaluated, there was verification of: *The patient's identity *The results of appropriate recent lab work and preoperative vital signs *The above evaluation not changing prior to induction *Anesthetic plan, risk benefits, alternative and complications discussed with patient/family; questions answered; patient/family understands, accepts and wishes to proceed. TROY CARLISLE MD Mar 21, 2018 10:15
--- NOTE | 2018-03-21 10:37 | HPN ---
Date/Time of Note Date/Time of Note DATE: 03/21/18 TIME: 10:36 Interval H&P Admission Note Pt. seen H&P reviewed: No system changes LEODAN SONI MD Mar 21, 2018 10:37
[2018-03-21] MEDS ORDERED: MIDAZOLAM 1 MG/ML 2 ML INJ ONE (10:45)
[2018-03-21] MEDS ORDERED: FENTAnyl 50 MCG/ML VIAL ONE (10:45)
[2018-03-21] MEDS ORDERED: ETOMIDATE 20 MG INJ ONE (12:10)
[2018-03-21] MEDS ORDERED: ROCURONIUM 50 MG INJ ONE (12:10)
[2018-03-21] MEDS ORDERED: NEOSTIGMINE 3 MG/3 ML SYRINGE ONE (12:10)
[2018-03-21] MEDS ORDERED: LIDOCAINE 2% (SDV) 5 ML INJ ONE (12:10)
[2018-03-21] MEDS ORDERED: GLYCOPYRROLATE 0.4 MG INJ ONE (12:10)
[2018-03-21] MEDS ORDERED: CEFAZOLIN 1 GM INJ ONE (12:10)
--- NOTE | 2018-03-21 12:18 | NUR ---
PACU PT FROM GI LAB ON O2 MASK NO RESP DISTRESS NO C/O PAIN IV SITE ON RT UPPER ARM VS STABLE
--- NOTE | 2018-03-21 12:24 | PAC ---
Date/Time of Note Date/Time of Note DATE: 03/21/18 TIME: 12:23 Post-Anesthesia Notes Post-Anesthesia Note Last documented vital signs Vital Signs Date Temp Pulse Resp B/P (MAP) Pulse Ox O2 O2 Flow FiO2 Time Delivery Rate 03/21/18 83 08:46 03/21/18 99.7 19 155/74 100 07:42 (101) 03/21/18 Nasal 2.0 07:40 Cannula Activity: WNL Respiratory function: WNL Cardiovascular function: WNL Mental status: Baseline Pain reasonably controlled: Yes Hydration appropriate: Yes Nausea/Vomiting absent: Yes Comments BP:160/68,pulse:88, spo2:100%, T:98,8 TROY CARLISLE MD Mar 21, 2018 12:24
[2018-03-21] MEDS ORDERED: hydrALAzine 20 MG INJ IV PRN (12:30)
[2018-03-21] MEDS ORDERED: DIPHENHYDRAMINE 50 MG INJ IV PRN (12:30)
[2018-03-21] MEDS ORDERED: LABETALOL HCL 20MG INJ IV PRN (12:30)
[2018-03-21] MEDS ORDERED: ONDANSETRON 4 MG INJ IV PRN (12:30)
[2018-03-21] MEDS ORDERED: METOCLOPRAMIDE 10 MG INJ IV PRN (12:30)
[2018-03-21] MEDS ORDERED: FENTAnyl 50 MCG/ML VIAL IV PRN (12:30)
[2018-03-21] MEDS ORDERED: HYDROmorphONE 1 MG/5 ML IV SYRINGE IV PRN ×2 (12:30)
[2018-03-21] MEDS: SOD FERRIC GLUC COMPLX 125 MG in SOD CHLORIDE 0.9% 100 ML IVPB SCH (13:00)
--- NOTE | 2018-03-21 13:15 | PN ---
Date/Time of Note Date/Time of Note DATE: 03/21/18 TIME: 13:15 Assessment/Plan VTE Prophylaxis Risk score (from Ns)>0 risk: 6 SCD applied (from Ns): Yes Pharmacological prophylaxis: LMWH Lines/Catheters IV Catheter Type (from Nrs): Peripheral IV Urinary Cath still in place: No Assessment/Plan Hospital Course 1) fluid overload - related to renal failure 2) renal failure - hemodialysis per nephrology 3) abdominal pain - work up and treatment per GI 4) diabetes - monitor blood sugar, insulin coverage as needed Result Diagram: 03/21/18 0737 03/21/18 0737 Results 24hrs Laboratory Tests Test 03/20/18 17:09 03/20/18 20:40 03/21/18 07:37 03/21/18 08:07 Bedside Glucose 79 117 88 White Blood 6.4 # Count Red Blood Count 2.71 L Hemoglobin 6.9 *L Hematocrit 21.6 L Mean Corpuscular 79.7 L Volume Mean Corpuscular 25.5 L Hemoglobin Mean Corpuscular 31.9 L Hemoglobin Shannan nt Red Cell 17.5 H Distribution Width Platelet Count 266 Mean Platelet 9.9 Volume Immature 0.300 Granulocytes % Neutrophils % Segmented 62 Neutrophils % (Manual) Lymphocytes % Lymphocytes % 15 (Manual) Reactive 6 H Lymphocytes % (Manual) Monocytes % Monocytes % 9 (Manual) Eosinophils % Eosinophils % 7 (Manual) Basophils % Basophils % 1 (Manual) Nucleated Red 0.0 Blood Cells % Immature 0.020 Granulocytes # Neutrophils # Lymphocytes 0.9 (Manual) Lymphocytes # Reactive 0.3 H Lymphocytes # Monocytes # Monocytes # 0.5 (Manual) Eosinophils # Basophils # Basophils # 0.0 (Manual) Nucleated Red Blood Cells # Platelet NORMAL Estimate Polychromasia 2+ Hypochromasia 1+ Poikilocytosis 2+ Anisocytosis 1+ Microcytosis 1+ Target Cells 1+ Ovalocytes 1+ Sodium Level 134 L Potassium Level 4.4 Chloride Level 99 Carbon Dioxide 27 Level Anion Gap 8 Blood Urea 17 Nitrogen Creatinine 3.12 H Est Glomerular 19 L Filtrat Rate mL/min Glucose Level 85 Calcium Level 7.9 L Subjective 24 Hr Interval Summary Free Text/Dictation Patient away from room, unable to interview Exam/Review of Systems Vital Signs Vitals Vital Signs Date Temp Pulse Resp B/P (MAP) Pulse Ox O2 O2 Flow FiO2 Time Delivery Rate 03/21/18 64 12 172/69 100 Room Air 12:43 (103) 03/21/18 98.0 12:18 03/21/18 2.0 07:40 Intake and Output 03/20/18 03/20/18 03/21/18 1515:00 23:00 07:00 IntakeIntake Total 860 ml OutputOutput Total 2600 ml BalanceBalance -1740 ml Exam No examination done as the patient is away from room Medications Medications Current Medications Ondansetron HCl (Zofran Inj) 4 mg Q6H PRN IV NAUSEA AND/OR VOMITING Last administered on 03/16/18 22:40; Admin Dose 4 MG; Start 03/16/18 at 18:30 Diphenhydramine HCl (Benadryl) 25 mg Q6H PRN IV ITCHING Last administered on 03/21/18 06:09; Admin Dose 25 MG; Start 03/16/18 at 18:30 Clonidine (Catapres) 0.1 mg Q6H PRN PO ELEVATED BLOOD PRESSURE Last administered on 03/18/18at 02:50; Admin Dose 0.1 MG; Start 03/16/18 at 20:30 Insulin Aspart (Novolog Insulin Pen) NOVOLOG *MODERATE* ALGORITHM WITH MEALS BEDTIME SC ; Start 03/16/18 at 22:00 Calcitriol (Rocaltrol) 0.25 mcg DAILY PO Last administered on 03/18/18at 08:15; Admin Dose 0.25 MCG; Start 03/17/18 at 09:00 Furosemide (Lasix) 40 mg BID PO Last administered on 03/20/18 20:30; Admin Dose 40 MG; Start 03/16/18 at 21:00 Levetiracetam (Keppra) 500 mg BID PO Last administered on 03/20/18 20:30; Admin Dose 500 MG; Start 03/16/18 at 21:00 Nifedipine (Procardia Xl) 30 mg DAILY PO Last administered on 03/18/18at 08:16; Admin Dose 30 MG; Start 03/17/18 at 09:00 Pantoprazole (Protonix Tab) 40 mg AC BREAKFAST PO Last administered on 03/20/18 06:28; Admin Dose 40 MG; Start 03/17/18 at 07:00 Quetiapine Fumarate (Seroquel) 300 mg DAILY PO Last administered on 03/18/18at 08:15; Admin Dose 300 MG; Start 03/17/18 at 09:00 Sevelamer Carbonate (Renvela) 1.6 gm WITH MEALS PO Last administered on 03/20/18at 18:05; Admin Dose 1.6 GM; Start 03/17/18 at 08:00 Miscellaneous Information 1 ea NOTE XX ; Start 03/16/18 at 21:30 Glucose (Glutose) 15 gm Q15M PRN PO DECREASED GLUCOSE; Start 03/16/18 at 21:30 Glucose (Glutose) 22.5 gm Q15M PRN PO DECREASED GLUCOSE; Start 03/16/18 at 21:30 Dextrose (D50w Syringe) 25 ml Q15M PRN IV DECREASED GLUCOSE; Start 03/16/18 at 21:30 Dextrose (D50w Syringe) 50 ml Q15M PRN IV DECREASED GLUCOSE; Start 03/16/18 at 21:30 Glucagon (Glucagen) 1 mg Q15M PRN IM DECREASED GLUCOSE; Start 03/16/18 at 21:30 Glucose (Glutose) 15 gm Q15M PRN BUCCAL DECREASED GLUCOSE; Start 03/16/18 at 2 1:30 Labetalol HCl (Normodyne) 200 mg BID PO Last administered on 03/20/18at 20:29; Admin Dose 200 MG; Start 03/16/18 at 22:00 Morphine Sulfate (morphine SULFATE (PF)) 4 mg Q4H PRN IV SEVERE PAIN LEVEL 7-10 Last administered on 03/21/18at 08:05; Admin Dose 4 MG; Start 03/17/18 at 02:00 Loperamide HCl (Imodium Cap) 2 mg Q6H PRN PO diarrhea Last administered on 03/20/18at 01:12; Admin Dose 2 MG; Start 03/17/18 at 03:30 Cholestyramine Resin (Questran) 1 pkt DAILY PO Last administered on 03/18/18at 08:15; Admin Dose 1 PKT; Start 03/17/18 at 09:00 Acetaminophen (Tylenol Tab) 650 mg Q6H PRN PO MILD PAIN(1-3)OR ELEVATED TEMP Last administered on 03/19/18at 07:55; Admin Dose 650 MG; Start 03/17/18 at 14:00 Hydralazine HCl (Apresoline) 25 mg Q6H PRN PO ELEVATED SYSTOLIC BP Last administered on 03/19/18at 18:13; Admin Dose 25 MG; Start 03/18/18 at 05:30 Heparin Sodium (Porcine) (Heparin (1000 Units/ml)) 2,300 unit AFTER DIALYSIS CATHETER Last administered on 03/19/18at 01:28; Admin Dose 2,300 UNIT; Start 03/18/18 at 22:00 Epoetin [place] (Epogen (Esrd)) 10,000 units MoWeFr@17 SC ; Start 03/19/18 at 17:00 Dextrose 1,000 ml @ 50 mls/hr Q20H IV Last administered on 03/21/18at 08:08; Admin Dose 50 MLS/HR; Start 03/19/18 at 16:30 Collagenase (Santyl) 1 applic DAILY TOP Last administered on 03/21/18at 08:05; Admin Dose 1 APPLIC; Start 03/19/18 at 19:30 Collagenase (Santyl) 1 applic PRN PRN TOP WHEN SOILED; Start 03/19/18 at 19:30 Hydralazine HCl (Apresoline) 10 mg Q6H PRN IV elevated BP ; Start 03/19/18 at 19:30 Ferric Sodium Gluconate Complex 125 mg/Sodium Chloride 110 ml @ 110 mls/hr DAILY@1300 IVPB Last administered on 03/20/18at 13:26; Admin Dose 110 MLS/HR; Start 03/20/18 at 13:00; Stop 03/24/18 at 13:59 Hydromorphone HCl (Dilaudid) 0.2 mg PACU PRN IV MILD PAIN LEVEL 1-3; Start 03/21/18 at 12:30; Stop 03/21/18 at 20:00 Hydromorphone HCl (Dilaudid) 0.4 mg PACU PRN IV MODERATE PAIN LEVEL 4-6; Start 03/21/18 at 12:30; Stop 03/21/18 at 20:00 Fentanyl (Sublimaze) 25 mcg PACU ORDER PRN IV MILD PAIN LEVEL 1-3; Start 03/21/18 at 12:30; Stop 03/21/18 at 20:00 Ondansetron HCl (Zofran Inj) 4 mg PACU ORDER PRN IV NAUSEA AND/OR VOMITING; Start 12/30/18 at 12:30; Stop 03/21/18 at 20:00 Metoclopramide HCl (Reglan) 10 mg PACU ORDER PRN IV NAUSEA AND/OR VOMITING; Start 03/21/18 at 12:30; Stop 03/21/18 at 20:00 Labetalol HCl (Labetalol) 5 mg PACU ORDER PRN IV ELEVATED BLOOD PRESSURE; Start 03/21/18 at 12:30; Stop 03/21/18 at 20:00 Hydralazine HCl (Apresoline) 5 mg PACU ORDER PRN IV ELEVATED BLOOD PRESSURE; Start 03/21/18 at 12:30; Stop 03/21/18 at 20:00 Diphenhydramine HCl (Benadryl) 25 mg PACU ORDER PRN IV PRURITUS; Start 03/21/18 at 12:30; Stop 03/21/18 at 20:00 JF KAISER Mar 21, 2018 13:15
--- NOTE | 2018-03-21 13:35 | NUR ---
pacu pt alert awake room air no c/o pain vs stable on hall monitor no resp distress report given to [facility]
--- NOTE | 2018-03-21 13:55 | GILP ---
DATE OF PROCEDURE: PROCEDURE PERFORMED: ERCP sphincterotomy, removal of stone and stenting. INDICATION: The patient is a 52-year-old female complains of abdominal pain. MRCP I reviewed with Hannah Matute. There was a stone in the distal part of the bile duct, besides patient's alkaline phos phatase was elevated. The purpose is to evaluate the biliary system and perform therapeutic endoscop y. INFORMED CONSENT: The risk of the procedure, related and unrelated complications, anesthetic risks, alternatives discussed. Informed consent was obtained. DESCRIPTION OF PROCEDURE: The patient was brought to the GI lab, intubated by Dr. Steele, placed in a prone position. ERCP scope passed with much ease into esophagus and advanced further down into sto mach and duodenum. Ampulla was identified. No bile was coming out. A selective cannulation was not possible because something was impacting the sphincterotome. A guidewire could not go in, but we got the guidewire engaged very well, so started doing a precut sphincterotomy and after doing precut sph incterotomy we could get a deeper cannulation of the bile duct. Cholangiogram obtained. There was a filling defect in the distal part of the bile duct. We did a sphincterotomy. Again, it required a lot of current the stone was preventing good cutting of the sphincter and finally we did a good inter nal sphincterotomy and a 9 to 12 mm balloon was used to extract the stone. Something through which we could not see, but sludge came out. Bile duct was then swept 3 times with a 12 mm balloon which wou ld come out easily. Stent again deployed successfully, 10-Tunisian 5 cm, excellent drainage establishe d, and the patient tolerated the procedure very well. Total fluoro time was 5 seconds. IMPRESSION: 1. 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 2. Large sphincterotomy done. A 9 to 12 mm balloon would come out easily. 3. Stone and sludge removed. 4. Stent deployed 10-Tunisian 5 cm successfully. 5. Fluoroscopy time was 5 seconds. PLAN: Monitor LFT and her clinical symptoms. Will start on a liquid diet today and advance it to michael al if able to tolerate. The [facility] EMR was not working, so I doubt the pictures are stored. Dictated By: LEODAN TOTH/ANTONINO Conf#: [id number] DID#: [id number] CC: JF KAISER MD;*EndCC*
--- NOTE | 2018-03-21 18:50 | NUR ---
EOSS- Pt resting in bed comfortably. Pain goals partially met throughout the shift. Hgb 6.9, 1 Unit PRBC given during ERCP with Dr. Webb. Procedure completed 1 stent placed. Will continue to monitor pt and endorse care to nightshift.
[2018-03-21] MEDS ORDERED: VITAMIN A & D 5 GM OINT PACKET TOP ONE (22:13)
[2018-03-22] VITALS (30 sets, daily range): BP systolic 88–189; BP diastolic 56–84; PULSE 62–79; RESP 16–20
[2018-03-22] MEDS: DIPHENHYDRAMINE 50 MG INJ IV PRN ×2 (00:35→06:31)
[2018-03-22] MEDS: morphine SULFATE/PF (2 MG/2 ML) SYG IV PRN ×3 (01:09→09:02)
[2018-03-22] MEDS: DEXTROSE 5% 1,000 ML IV SCH (04:59)
--- NOTE | 2018-03-22 06:34 | PN ---
Date/Time of Note Date/Time of Note DATE: 03/22/18 TIME: 06:30 Assessment/Plan VTE Prophylaxis Risk score (from Nsg)>0 risk: 3 SCD applied (from Nsg): Yes Pharmacological prophylaxis: NA/contraindicated Pharm contraindication: low risk/ambulating Lines/Catheters IV Catheter Type (from Nrsg): Peripheral IV Urinary Cath still in place: No Assessment/Plan Hospital Course 52 yo female with ESRD and diarrhea left AMA 03/16 and returned with abdominal pain. 1. Abdominal pain -lipase mildly elevated 03/16 420 2. Diarrhea -O/P negative. C diff negative 3. Mildly elevated lipase with mid abd pain radiating to back 4. Mild generalized small and large bowel wall thickening which per CT 03/01 could represent third spacing. 5. Hemorrhoids per pt 6. Mild hepatomegaly 7. Anemia, likely due to chronic disease -Ferritin high, Iron wnl, TIBC low, B12 wnl, folate wnl, FOB negative -no evidence of GI bleeding 8. End stage renal disease on HD 9. Cardiomegaly with mild lower lung pulmonary edema with small left effusion and mild diffuse ascites 10. Anasarca and ascites -03/15 paracentesis removed 2.9 liters 11. Diabetes 12. Hypertension 13. Elevated alk phos 14. Mildly dilated biliary system with CBD measuring 10mm 15. Chronic liver disease MRCP 03/18: 1. Enlarged liver with suggestion of mild liver surface nodularity. Chronic hepatic parenchymal disease is suspected. Diffusely decreased T2 signal intensity of the liver and spleen can represent hemosiderin deposition likely in the setting of secondary hemochromatosis. 2. Large volume ascites. 3. Wall thickening of the gallbladder without gallstones. This likely relates to presence of large volume ascites. 4. Wall thickening of multiple loops of small bowel may also relate to presence of ascites. 5. No intrahepatic biliary ductal dilatation. Mild extrahepatic biliary ductal dilatation measuring up to 10 mm in the mid common bile duct with gradual distal tapering. No filling defects along the course of the common bile duct within the limitations of this exam to represent choledocholithiasis. Plan: Monitor LFTs for downward trend, and WBC Continue with diet as tolerated Continue with PPI PRN pain management Anemia work up Paracentesis Pt examined and plan of care discussed with Dr. Webb Result Diagram: 03/21/18 0737 03/21/18 0737 Results 24hrs Laboratory Tests Test 03/21/18 07:37 03/21/18 08:07 03/21/18 17:50 03/21/18 21:22 White Blood 6.4 # Count Red Blood Count 2.71 L Hemoglobin 6.9 *L Hematocrit 21.6 L Mean Corpuscular 79.7 L Volume Mean Corpuscular 25.5 L Hemoglobin Mean Corpuscular 31.9 L Hemoglobin Shannan nt Red Cell 17.5 H Distribution Width Platelet Count 266 Mean Platelet 9.9 Volume Immature 0.300 Granulocytes % Neutrophils % Segmented 62 Neutrophils % (Manual) Lymphocytes % Lymphocytes % 15 (Manual) Reactive 6 H Lymphocytes % (Manual) Monocytes % Monocytes % 9 (Manual) Eosinophils % Eosinophils % 7 (Manual) Basophils % Basophils % 1 (Manual) Nucleated Red 0.0 Blood Cells % Immature 0.020 Granulocytes # Neutrophils # Lymphocytes 0.9 (Manual) Lymphocytes # Reactive 0.3 H Lymphocytes # Monocytes # Monocytes # 0.5 (Manual) Eosinophils # Basophils # Basophils # 0.0 (Manual) Nucleated Red Blood Cells # Platelet NORMAL Estimate Polychromasia 2+ Hypochromasia 1+ Poikilocytosis 2+ Anisocytosis 1+ Microcytosis 1+ Target Cells 1+ Ovalocytes 1+ Sodium Level 134 L Potassium Level 4.4 Chloride Level 99 Carbon Dioxide 27 Level Anion Gap 8 Blood Urea 17 Nitrogen Creatinine 3.12 H Est Glomerular 19 L Filtrat Rate mL/min Glucose Level 85 Calcium Level 7.9 L Bedside Glucose 88 95 128 Subjective 24 Hr Interval Summary Free Text/Dictation Continues to c/o abd pain but visually looks better, no n/v. States she feels better after paracentesis but only for short time. Exam/Review of Systems Vital Signs Vitals Vital Signs Date Temp Pulse Resp B/P (MAP) Pulse Ox O2 O2 Flow FiO2 Time Delivery Rate 03/22/18 62 04:00 03/22/18 98.1 20 156/72 91 03:14 (100) 03/21/18 Nasal 2.0 19:40 Cannula Intake and Output 03/21/18 03/21/18 03/22/18 1515:00 23:00 07:00 IntakeIntake Total 1010 ml BalanceBalance 1010 ml Exam Constitutional: alert, oriented Psych: no complaints Head: normocephalic Eyes: PERRL ENMT: mucosa pink and moist Respiratory: diminished breath sounds Cardiovascular: regular rate and rhythm Gastrointestinal: soft, ascites, distended, tender Musculoskeletal: nl gait and stance Neurological: nl mental status Medications Medications Current Medications Ondansetron HCl (Zofran Inj) 4 mg Q6H PRN IV NAUSEA AND/OR VOMITING Last administered on 03/16/18 22:40; Admin Dose 4 MG; Start 03/16/18 at 18:30 Diphenhydramine HCl (Benadryl) 25 mg Q6H PRN IV ITCHING Last administered on 03/22/18 00:35; Admin Dose 25 MG; Start 03/16/18 at 18:30 Clonidine (Catapres) 0.1 mg Q6H PRN PO ELEVATED BLOOD PRESSURE Last administered on 03/18/18 02:50; Admin Dose 0.1 MG; Start 03/16/18 at 20:30 Insulin Aspart (Novolog Insulin Pen) NOVOLOG *MODERATE* ALGORITHM WITH MEALS BEDTIME SC ; Start 03/16/18 at 22:00 Calcitriol (Rocaltrol) 0.25 mcg DAILY PO Last administered on 03/18/18 08:15; Admin Dose 0.25 MCG; Start 03/17/18 at 09:00 Furosemide (Lasix) 40 mg BID PO Last administered on 03/21/18 21:16; Admin Dose 40 MG; Start 03/16/18 at 21:00 Levetiracetam (Keppra) 500 mg BID PO Last administered on 03/21/18 21:16; Admin Dose 500 MG; Start 03/16/18 at 21:00 Nifedipine (Procardia Xl) 30 mg DAILY PO Last administered on 03/18/18 08:16; Admin Dose 30 MG; Start 03/17/18 at 09:00 Pantoprazole (Protonix Tab) 40 mg AC BREAKFAST PO Last administered on 03/20/18 06:28; Admin Dose 40 MG; Start 03/17/18 at 07:00 Quetiapine Fumarate (Seroquel) 300 mg DAILY PO Last administered on 03/18/18 08:15; Admin Dose 300 MG; Start 03/17/18 at 09:00 Sevelamer Carbonate (Renvela) 1.6 gm WITH MEALS PO Last administered on 03/21/18 17:49; Admin Dose 1.6 GM; Start 03/17/18 at 08:00 Miscellaneous Information 1 ea NOTE XX ; Start 03/16/18 at 21:30 Glucose (Glutose) 15 gm Q15M PRN PO DECREASED GLUCOSE; Start 03/16/18 at 21:30 Glucose (Glutose) 22.5 gm Q15M PRN PO DECREASED GLUCOSE; Start 03/16/18 at 21:30 Dextrose (D50w Syringe) 25 ml Q15M PRN IV DECREASED GLUCOSE; Start 03/16/18 at 21:30 Dextrose (D50w Syringe) 50 ml Q15M PRN IV DECREASED GLUCOSE; Start 03/16/18 at 21:30 Glucagon (Glucagen) 1 mg Q15M PRN IM DECREASED GLUCOSE; Start 03/16/18 at 21:30 Glucose (Glutose) 15 gm Q15M PRN BUCCAL DECREASED GLUCOSE; Start 03/16/18 at 21:30 Labetalol HCl (Normodyne) 200 mg BID PO Last administered on 03/21/18at 21:17; Admin Dose 200 MG; Start 03/16/18 at 22:00 Morphine Sulfate (morphine SULFATE (PF)) 4 mg Q4H PRN IV SEVERE PAIN LEVEL 7-10 Last administered on 03/22/18at 04:57; Admin Dose 4 MG; Start 03/17/18 at 02:00 Loperamide HCl (Imodium Cap) 2 mg Q6H PRN PO diarrhea Last administered on 03/20/18at 01:12; Admin Dose 2 MG; Start 03/17/18 at 03:30 Cholestyramine Resin (Questran) 1 pkt DAILY PO Last administered on 03/18/18at 08:15; Admin Dose 1 PKT; Start 03/17/18 at 09:00 Acetaminophen (Tylenol Tab) 650 mg Q6H PRN PO MILD PAIN(1-3)OR ELEVATED TEMP Last administered on 03/19/18at 07:55; Admin Dose 650 MG; Start 03/17/18 at 14:00 Hydralazine HCl (Apresoline) 25 mg Q6H PRN PO ELEVATED SYSTOLIC BP Last administered on 03/19/18at 18:13; Admin Dose 25 MG; Start 03/18/18 at 05:30 Heparin Sodium (Porcine) (Heparin (1000 Units/ml)) 2,300 unit AFTER DIALYSIS CATHETER Last administered on 03/19/18at 01:28; Admin Dose 2,300 UNIT; Start 03/18/18 at 22:00 Epoetin Clinton (Epogen (Esrd)) 10,000 units MoWeFr@17 SC ; Start 03/19/18 at 17:00 Dextrose 1,000 ml @ 50 mls/hr Q20H IV Last administered on 03/22/18at 04:59; Admin Dose 50 MLS/HR; Start 03/19/18 at 16:30 Collagenase (Santyl) 1 applic DAILY TOP Last administered on 03/21/18at 08:05; Admin Dose 1 APPLIC; Start 03/19/18 at 19:30 Collagenase (Santyl) 1 applic PRN PRN TOP WHEN SOILED; Start 03/19/18 at 19:30 Hydralazine HCl (Apresoline) 10 mg Q6H PRN IV elevated BP ; Start 03/19/18 at 19:30 Ferric Sodium Gluconate Complex 125 mg/Sodium Chloride 110 ml @ 110 mls/hr DAILY@1300 IVPB Last administered on 03/21/18at 13:00; Admin Dose 110 MLS/HR; Start 03/20/18 at 13:00; Stop 03/24/18 at 13:59 ROBERT GOODRICH Mar 22, 2018 06:34
--- NOTE | 2018-03-22 06:56 | NUR ---
End of shift notes: Vital signs stable. Still with pain noted on her abdomen. Meds given and with relief. needs attended. keep safe and free from injury. Endorsed to day shift.
[2018-03-22] MEDS: PANTOPRAZOLE (EC) 40 MG TAB PO SCH (07:25)
[2018-03-22] MEDS: INSULIN ASPART [NOVOLOG] 3 ML PEN SC SCH ×3 (07:55→17:12)
[2018-03-22] MEDS: CHOLESTYRAMINE 4 GM PACKET PO SCH (08:58)
[2018-03-22] MEDS: QUETIAPINE 100 MG TAB PO SCH (08:59)
[2018-03-22] MEDS: SEVELAMER CARBONATE 0.8 GM PKT PO SCH ×3 (08:59→17:27)
[2018-03-22] MEDS: CALCITRIOL 0.25 MCG CAP PO SCH (08:59)
[2018-03-22] MEDS: FUROSEMIDE 40 MG TAB PO SCH (09:00)
[2018-03-22] MEDS: NIFEdipine (XL) 30 MG TAB PO SCH (09:00)
[2018-03-22] MEDS: LEVETIRACETAM 500 MG TAB PO SCH (09:00)
[2018-03-22] MEDS: LABETALOL 200 MG TAB PO SCH (09:01)
[2018-03-22] MEDS: COLLAGENASE 5 GM (UD JAR) TOP SCH (09:02)
--- NOTE | 2018-03-22 11:45 | NUR ---
TRANSFER OF CARE REPORT TAKEN FROM [facility]
--- NOTE | 2018-03-22 12:05 | NUR ---
Pt endorsed to AGUSTO Gregorio, pt on her way to GI lab for paracentesis. pain medications provided for comfort this AM.
--- NOTE | 2018-03-22 13:14 | PN ---
DATE: 03/22/2018 SUBJECTIVE: The patient is stable, no events overnight. OBJECTIVE: VITAL SIGNS: Blood pressure is 189/84, pulse 67, respiration 18, temperature 98.7. HEENT: Head is normocephalic. NECK: Supple. HEART: Regular rate. LUNGS: Show diminished breath sounds at base. ABDOMEN: Soft, nontender to palpation without rebound or guarding. EXTREMITIES: Negative for clubbing, cyanosis, no edema. DERMATOLOGIC: No rashes. MUSCULOSKELETAL: No joint effusion. NEUROLOGIC: No change in exam. MEDICATIONS: Reviewed. LABORATORY DATA: Has been reviewed. ASSESSMENT AND PLAN: 1. End-stage renal disease. Plan is for hemodialysis today. Will dialyze 3 hours 2k bath, calcium 2.5. 2. Anemia. Continue to monitor hemoglobin and hematocrit levels. Continue Epogen. Continue IV Glenn rlecit. 3. Hyperkalemia, resolved. 4. Volume overload. Continue ultrafiltration dialysis. 5. Access. The patient has a Petros catheter. We will require placement of Perm-A-Cath and possib ly new AV fistula placement. Will defer to vascular surgery. 6. Mineral bone disorder, monitor calcium and phosphorus levels. 7. Abdominal pain possibly due to biliary colic. The patient is status post endoscopic retrograde c holangiopancreatography with dilatation of common bile duct and stent placement. Continue to monitor . Follow up LFTs, follow up with GI. 8. Encephalopathy, resolved. 9. Hypertension. Continue current blood pressure regimen. 10. Gastritis. Continue proton pump inhibitor. Dictated By: SHILO LIU DO NR/NTS Conf#: [id number] DID#: [id number] CC: JF KAISER MD;*EndCC*
--- NOTE | 2018-03-22 13:37 | PN ---
Date/Time of Note Date/Time of Note DATE: 03/22/18 TIME: 13:37 Assessment/Plan VTE Prophylaxis Risk score (from Ns)>0 risk: 3 SCD applied (from Ns): Yes Pharmacological prophylaxis: LMWH Lines/Catheters IV Catheter Type (from Nrsg): Mid Line Urinary Cath still in place: No Assessment/Plan Hospital Course 1) fluid overload - related to renal failure 2) renal failure - hemodialysis per nephrology 3) abdominal pain - work up and treatment per GI 4) diabetes - monitor blood sugar, insulin coverage as needed Result Diagram: 03/22/18 1234 03/22/18 1234 Results 24hrs Laboratory Tests Test 03/21/18 17:50 03/21/18 21:22 03/22/18 08:12 03/22/18 12:19 Bedside Glucose 95 128 76 85 Test 03/22/18 12:34 White Blood 4.7 #L Count Red Blood Count 3.19 L Hemoglobin 8.2 L Hematocrit 24.9 L Mean Corpuscular 78.1 L Volume Mean Corpuscular 25.7 L Hemoglobin Mean Corpuscular 32.9 Hemoglobin Shannan nt Red Cell 17.2 H Distribution Width Platelet Count 269 Mean Platelet 9.5 Volume Immature 0.200 Granulocytes % Neutrophils % 51.0 Lymphocytes % 21.8 Monocytes % 17.3 H Eosinophils % 8.8 H Basophils % 0.9 Nucleated Red 0.0 Blood Cells % Immature 0.010 Granulocytes # Neutrophils # 2.4 Lymphocytes # 1.0 Monocytes # 0.8 Eosinophils # 0.4 Basophils # 0.0 Nucleated Red 0.0 Blood Cells # Absolute 0.012 L Reticulocyte Count Percent 0.4 L Reticulocyte Count Sodium Level 135 Potassium Level 4.2 Chloride Level 95 L Carbon Dioxide 26 Level Anion Gap 14 H Blood Urea 23 H Nitrogen Creatinine 4.51 #H Est Glomerular 12 L Filtrat Rate mL/min Glucose Level 87 Calcium Level 7.7 L Iron Level 39 Total Iron 179 L Binding Capacity Percent Iron 22 Saturation Total Bilirubin 0.0 L Direct Bilirubin 0.00 Indirect 0.0 Bilirubin Aspartate Amino 18 Transf (AST/SGOT ) Alanine 14 Aminotransferase (ALT/SGPT) Alkaline 132 H Phosphatase Total Protein 5.4 L Albumin 2.6 L Globulin 2.80 Albumin/Globulin 0.92 Ratio Lipase 18 L Subjective 24 Hr Interval Summary Free Text/Dictation Abdominal pain seems to be improving Exam/Review of Systems Vital Signs Vitals Vital Signs Date Temp Pulse Resp B/P (MAP) Pulse Ox O2 O2 Flow FiO2 Time Delivery Rate 03/22/18 98.2 79 18 131/64 94 12:50 (86) 03/22/18 Room Air 11:57 03/21/18 2.0 19:40 Intake and Output 03/21/18 03/21/18 03/22/18 1515:00 23:00 07:00 IntakeIntake Total 1010 ml BalanceBalance 1010 ml Exam Constitutional: well developed Head: normocephalic, atraumatic Neck: supple Respiratory: diminished breath sounds Cardiovascular: regular rate and rhythm Gastrointestinal: soft, non-tender Extremities: normal pulses Medications Medications Current Medications Ondansetron HCl (Zofran Inj) 4 mg Q6H PRN IV NAUSEA AND/OR VOMITING Last administered on 03/16/18 22:40; Admin Dose 4 MG; Start 03/16/18 at 18:30 Diphenhydramine HCl (Benadryl) 25 mg Q6H PRN IV ITCHING Last administered on 03/22/18 06:31; Admin Dose 25 MG; Start 03/16/18 at 18:30 Clonidine (Catapres) 0.1 mg Q6H PRN PO ELEVATED BLOOD PRESSURE Last administered on 03/18/18 02:50; Admin Dose 0.1 MG; Start 03/16/18 at 20:30 Insulin Aspart (Novolog Insulin Pen) NOVOLOG *MODERATE* ALGORITHM WITH MEALS BEDTIME SC ; Start 03/16/18 at 22:00 Calcitriol (Rocaltrol) 0.25 mcg DAILY PO Last administered on 03/22/18 08:59; Admin Dose 0.25 MCG; Start 03/17/18 at 09:00 Furosemide (Lasix) 40 mg BID PO Last administered on 03/22/18 09:00; Admin Dose 40 MG; Start 03/16/18 at 21:00 Levetiracetam (Keppra) 500 mg BID PO Last administered on 03/22/18 09:00; Admin Dose 500 MG; Start 03/16/18 at 21:00 Nifedipine (Procardia Xl) 30 mg DAILY PO Last administered on 03/22/18 09:00; Admin Dose 30 MG; Start 03/17/18 at 09:00 Pantoprazole (Protonix Tab) 40 mg AC BREAKFAST PO Last administered on 03/22/18at 07:25; Admin Dose 40 MG; Start 03/17/18 at 07:00 Quetiapine Fumarate (Seroquel) 300 mg DAILY PO Last administered on 03/22/18at 08:59; Admin Dose 300 MG; Start 03/17/18 at 09:00 Sevelamer Carbonate (Renvela) 1.6 gm WITH MEALS PO Last administered on 03/22/18at 08:59; Admin Dose 1.6 GM; Start 03/17/18 at 08:00 Miscellaneous Information 1 ea NOTE XX ; Start 03/16/18 at 21:30 Glucose (Glutose) 15 gm Q15M PRN PO DECREASED GLUCOSE; Start 03/16/18 at 21:30 Glucose (Glutose) 22.5 gm Q15M PRN PO DECREASED GLUCOSE; Start 03/16/18 at 21:30 Dextrose (D50w Syringe) 25 ml Q15M PRN IV DECREASED GLUCOSE; Start 03/16/18 at 21:30 Dextrose (D50w Syringe) 50 ml Q15M PRN IV DECREASED GLUCOSE; Start 03/16/18 at 21:30 Glucagon (Glucagen) 1 mg Q15M PRN IM DECREASED GLUCOSE; Start 03/16/18 at 21:30 Glucose (Glutose) 15 gm Q15M PRN BUCCAL DECREASED GLUCOSE; Start 03/16/18 at 21:30 Labetalol HCl (Normodyne) 200 mg BID PO Last administered on 03/22/18at 09:01; Admin Dose 200 MG; Start 03/16/18 at 22:00 Morphine Sulfate (morphine SULFATE (PF)) 4 mg Q4H PRN IV SEVERE PAIN LEVEL 7-10 Last administered on 03/22/18at 09:02; Admin Dose 4 MG; Start 03/17/18 at 02:00 Loperamide HCl (Imodium Cap) 2 mg Q6H PRN PO diarrhea Last administered on 03/20/18at 01:12; Admin Dose 2 MG; Start 03/17/18 at 03:30 Cholestyramine Resin (Questran) 1 pkt DAILY PO Last administered on 03/22/18at 08:58; Admin Dose 1 PKT; Start 03/17/18 at 09:00 Acetaminophen (Tylenol Tab) 650 mg Q6H PRN PO MILD PAIN(1-3)OR ELEVATED TEMP Last administered on 03/19/18at 07:55; Admin Dose 650 MG; Start 03/17/18 at 14:00 Hydralazine HCl (Apresoline) 25 mg Q6H PRN PO ELEVATED SYSTOLIC BP Last administered on 03/19/18at 18:13; Admin Dose 25 MG; Start 03/18/18 at 05:30 Heparin Sodium (Porcine) (Heparin (1000 Units/ml)) 2,300 unit AFTER DIALYSIS CATHETER Last administered on 03/19/18at 01:28; Admin Dose 2,300 UNIT; Start 03/18/18 at 22:00 Epoetin [place] (Epogen (Esrd)) 10,000 units MoWeFr@17 SC ; Start 03/19/18 at 17:00 Dextrose 1,000 ml @ 50 mls/hr Q20H IV Last administered on 03/22/18at 04:59; Admin Dose 50 MLS/HR; Start 03/19/18 at 16:30 Collagenase (Santyl) 1 applic DAILY TOP Last administered on 03/22/18at 09:02; Admin Dose 1 APPLIC; Start 03/19/18 at 19:30 Collagenase (Santyl) 1 applic PRN PRN TOP WHEN SOILED; Start 03/19/18 at 19:30 Hydralazine HCl (Apresoline) 10 mg Q6H PRN IV elevated BP ; Start 03/19/18 at 19:30 Ferric Sodium Gluconate Complex 125 mg/Sodium Chloride 110 ml @ 110 mls/hr DAILY@1300 IVPB Last administered on 03/21/18at 13:00; Admin Dose 110 MLS/HR; Start 03/20/18 at 13:00; Stop 03/24/18 at 13:59 JF KAISER Mar 22, 2018 13:37
[2018-03-22] MEDS: EPOETIN 10000 UNITS/1 ML INJ (ESRD) SC SCH (17:28)
--- NOTE | 2018-03-22 17:44 | NUR ---
END OF SHIFT CONFUSED, DIALYSIS IN PROGRESS, DENIES PAIN, NO IV ACCESS, IV ACCESS ATTEMPT BY MYSELF, CHARGE NURSE DIEGO, CHARGE NURSE GREYSON, S/W ICU CHARGE NILSON WHO STATED THEY MAY BE ABLE TO SEND A NURSE FOR A MIDLINE START, CHARGE NURSE DIEGO NOTIFIED OF ABOVE OTHERWISE WILL ENDORSE TO PM SHIFT, STABLE FOR HANDOFF CURRENTLY
--- NOTE | 2018-03-22 19:46 | NUR ---
Patient lab values for K as of 03/22/2018 is 4.2, K bath changed to 3K per sliding scale noted in the order. Temporary catheter has poor flow from arterial side, constant flushing required. Horace Steel MD notified. Addendum: 03/22/18 at 2000 by ROSHAN OTERO order dwell with Cathflo. Horace Bledsoe MD. Addendum: 03/22/18 at 2243 by ROSHAN OTERO Treatment summary: BFR reduced to 300 due to poor flow, total output of 900mL due to flow issues. Dressing changed, dwell with alteplase 1.1 arterial port, 1.2 venous port. Patient stable, no distress.
[2018-03-22] MEDS ORDERED: ALTEPLASE (CATHFLO) 2 MG INJ CATHETER ONE (20:30)
[2018-03-23] VITALS (10 sets, daily range): BP systolic 119–155; BP diastolic 66–82; PULSE 64–78; RESP 16–20
[2018-03-23] MEDS: SOD FERRIC GLUC COMPLX 125 MG in SOD CHLORIDE 0.9% 100 ML IVPB SCH ×2 (00:05→13:00)
[2018-03-23] MEDS: DEXTROSE 5% 1,000 ML IV SCH ×3 (00:05→21:45)
[2018-03-23] MEDS: INSULIN ASPART [NOVOLOG] 3 ML PEN SC SCH ×5 (00:30→20:44)
[2018-03-23] MEDS: LABETALOL 200 MG TAB PO SCH ×4 (00:30→20:11)
[2018-03-23] MEDS: LEVETIRACETAM 500 MG TAB PO SCH ×4 (00:30→20:11)
[2018-03-23] MEDS: FUROSEMIDE 40 MG TAB PO SCH ×3 (00:30→20:11)
--- NOTE | 2018-03-23 02:34 | NUR ---
PIV placement: Requested x3 to place PIV. Pt refused to have PIV placed despite repeated explanation as to why PIV is needed (maintenance IVF, IV meds). Pt became extremely upset after the 3rd request for placement stating that she'd "rather than have that stupid thing you b*tch." I told the pt I will stop there and then and left the pt's bedside. Charge nurse, Thierry, was made aware.
--- NOTE | 2018-03-23 06:22 | NUR ---
PIV placement: At 0245, AGUSTO Soares, attempted x2 to place PIV, no success.
--- NOTE | 2018-03-23 06:24 | NUR ---
at 0530: Pt asked me to attempt to place PIV. I attempted x1 but no success. Pt asked me not to attempt a 2nd time.
--- NOTE | 2018-03-23 06:25 | NUR ---
EOSS: HD started 03/22/18 with output of 900 mL. Ultrasound of the abdomen on 03/22/18 revealed free fluid in abdomen but not enough to perform paracentesis. ERCP on 03/21, a stent was placed. See previous notes on PIV placements (attempts & pt refusal). Pt has IVF and IV meds not given tonight 2/2 pt refusal. BG after midnight was 76.
[2018-03-23] MEDS: PANTOPRAZOLE (EC) 40 MG TAB PO SCH (08:10)
[2018-03-23] MEDS: SEVELAMER CARBONATE 0.8 GM PKT PO SCH ×3 (08:10→17:54)
[2018-03-23] MEDS: NIFEdipine (XL) 30 MG TAB PO SCH (08:11)
[2018-03-23] MEDS: QUETIAPINE 100 MG TAB PO SCH (08:11)
[2018-03-23] MEDS: CHOLESTYRAMINE 4 GM PACKET PO SCH (08:11)
[2018-03-23] MEDS: CALCITRIOL 0.25 MCG CAP PO SCH (08:11)
[2018-03-23] MEDS: COLLAGENASE 5 GM (UD JAR) TOP SCH (08:12)
--- NOTE | 2018-03-23 08:56 | CONS ---
Date/Time of Note Date/Time of Note DATE: 03/23/18 TIME: 08:52 Assessment/Plan Assessment/Plan Assessment/Plan Impression: 1. Abdominal pain -lipase mildly elevated 03/16 420 2. Diarrhea -O/P negative. C diff negative 3. Mildly elevated lipase with mid abd pain radiating to back 4. Mild generalized small and large bowel wall thickening which per CT 03/01 could represent third spacing. 5. Hemorrhoids per pt 6. Mild hepatomegaly 7. Anemia, likely due to chronic disease -Ferritin high, Iron wnl, TIBC low, B12 wnl, folate wnl, FOB negative -no evidence of GI bleeding 8. End stage renal disease on HD 9. Cardiomegaly with mild lower lung pulmonary edema with small left effusion and mild diffuse ascites 10. Anasarca and ascites -03/15 paracentesis removed 2.9 liters 11. Diabetes 12. Hypertension 13. Elevated alk phos 14. Mildly dilated biliary system with CBD measuring 10mm 15. Chronic liver disease, likely cirrhotic with nodular liver appearance on MRCP MRCP 03/18: 1. Enlarged liver with suggestion of mild liver surface nodularity. Chronic hepatic parenchymal disease is suspected. Diffusely decreased T2 signal intensity of the liver and spleen can represent hemosiderin deposition likely in the setting of secondary hemochromatosis. 2. Large volume ascites. 3. Wall thickening of the gallbladder without gallstones. This likely relates to presence of large volume ascites. 4. Wall thickening of multiple loops of small bowel may also relate to presence of ascites. 5. No intrahepatic biliary ductal dilatation. Mild extrahepatic biliary ductal dilatation measuring up to 10 mm in the mid common bile duct with gradual distal tapering. No filling defects along the course of the common bile duct within the limitations of this exam to represent choledocholithiasis. Plan: Monitor LFTs for downward trend, and WBC Continue with diet as tolerated Continue with PPI PRN pain management Anemia work up Paracentesis as needed for abdominal distension low salt diet outpatient referral to liver specialist at [facility], [facility], or [facility] if possible Result Diagram: 03/22/18 1234 03/22/18 1234 Results 24hrs Laboratory Tests Test 03/22/18 12:19 03/22/18 12:34 03/22/18 17:07 03/23/18 00:54 Bedside Glucose 85 89 76 White Blood Count 4.7 #L Red Blood Count 3.19 L Hemoglobin 8.2 L Hematocrit 24.9 L Mean Corpuscular 78.1 L Volume Mean Corpuscular 25.7 L Hemoglobin Mean Corpuscular 32.9 Hemoglobin Concent Red Cell 17.2 H Distribution Width Platelet Count 269 Mean Platelet 9.5 Volume Immature 0.200 Granulocytes % Neutrophils % 51.0 Lymphocytes % 21.8 Monocytes % 17.3 H Eosinophils % 8.8 H Basophils % 0.9 Nucleated Red 0.0 Blood Cells % Immature 0.010 Granulocytes # Neutrophils # 2.4 Lymphocytes # 1.0 Monocytes # 0.8 Eosinophils # 0.4 Basophils # 0.0 Nucleated Red 0.0 Blood Cells # Absolute 0.012 L Reticulocyte Count Percent 0.4 L Reticulocyte Count Sodium Level 135 Potassium Level 4.2 Chloride Level 95 L Carbon Dioxide 26 Level Anion Gap 14 H Blood Urea 23 H Nitrogen Creatinine 4.51 #H Est Glomerular 12 L Filtrat Rate mL/min Glucose Level 87 Calcium Level 7.7 L Iron Level 39 Total Iron Binding 179 L Capacity Percent Iron 22 Saturation Ferritin 818.0 H Total Bilirubin 0.0 L Direct Bilirubin 0.00 Indirect Bilirubin 0.0 Aspartate Amino 18 Transf (AST/SGOT) Alanine 14 Aminotransferase ( ALT/SGPT) Alkaline 132 H Phosphatase Total Protein 5.4 L Albumin 2.6 L Globulin 2.80 Albumin/Globulin 0.92 Ratio Lipase 18 L Vitamin B12 Level 656 Folate 5.4 Test 03/23/18 08:07 Bedside Glucose 104 Consultation Date/Type/Reason Admit Date/Time Mar 16, 2018 at 14:01 Initial Consult Date 24 HR Interval Summary Free Text/Dictation tolerating po, no n/v, feels abd more distended Exam/Review of Systems Vital Signs Vitals Vital Signs Date Temp Pulse Resp B/P (MAP) Pulse Ox O2 O2 Flow FiO2 Time Delivery Rate 03/23/18 98.8 72 17 155/82 95 Room Air 07:29 (106) 03/22/18 2.0 19:34 Intake and Output 03/22/18 03/22/18 03/23/18 1515:00 23:00 07:00 IntakeIntake Total 350 ml 700 ml OutputOutput Total 2100 ml BalanceBalance 350 ml -1400 ml Exam Constitutional: alert, well developed Psych: anxiety Head: normocephalic, atraumatic Eyes: nl conjunctiva, EOMI, nl lids ENMT: nl external ears & nose, nl lips & teeth, nl nasal mucosa & septum Neck: supple, non-tender Respiratory: clear to auscultation, normal air movement Cardiovascular: regular rate and rhythm, nl pulses Gastrointestinal: soft, non-tender, ascites, bowel sounds, distended Neurological: nl mental status, nl speech, nl strength Medications Medications Current Medications Ondansetron HCl (Zofran Inj) 4 mg Q6H PRN IV NAUSEA AND/OR VOMITING Last administered on 03/16/18 22:40; Admin Dose 4 MG; Start 03/16/18 at 18:30 Diphenhydramine HCl (Benadryl) 25 mg Q6H PRN IV ITCHING Last administered on 03/22/18 06:31; Admin Dose 25 MG; Start 03/16/18 at 18:30 Clonidine (Catapres) 0.1 mg Q6H PRN PO ELEVATED BLOOD PRESSURE Last administered on 03/18/18 02:50; Admin Dose 0.1 MG; Start 03/16/18 at 20:30 Insulin Aspart (Novolog Insulin Pen) NOVOLOG *MODERATE* ALGORITHM WITH MEALS BEDTIME SC ; Start 03/16/18 at 22:00 Calcitriol (Rocaltrol) 0.25 mcg DAILY PO Last administered on 03/23/18 08:11; Admin Dose 0.25 MCG; Start 03/17/18 at 09:00 Furosemide (Lasix) 40 mg BID PO Last administered on 03/23/18 01:37; Admin Dose 40 MG; Start 03/16/18 at 21:00 Levetiracetam (Keppra) 500 mg BID PO Last administered on 03/23/18 01:37; Admin Dose 500 MG; Start 03/16/18 at 21:00 Nifedipine (Procardia Xl) 30 mg DAILY PO Last administered on 03/23/18 08:11; Admin Dose 30 MG; Start 03/17/18 at 09:00 Pantoprazole (Protonix Tab) 40 mg AC BREAKFAST PO Last administered on 03/23/18 08:10; Admin Dose 40 MG; Start 03/17/18 at 07:00 Quetiapine Fumarate (Seroquel) 300 mg DAILY PO Last administered on 03/23/18 08:11; Admin Dose 300 MG; Start 03/17/18 at 09:00 Sevelamer Carbonate (Renvela) 1.6 gm WITH MEALS PO Last administered on 03/23/18 08:10; Admin Dose 1.6 GM; Start 03/17/18 at 08:00 Miscellaneous Information 1 ea NOTE XX ; Start 03/16/18 at 21:30 Glucose (Glutose) 15 gm Q15M PRN PO DECREASED GLUCOSE; Start 03/16/18 at 21:30 Glucose (Glutose) 22.5 gm Q15M PRN PO DECREASED GLUCOSE; Start 03/16/18 at 21:30 Dextrose (D50w Syringe) 25 ml Q15M PRN IV DECREASED GLUCOSE; Start 03/16/18 at 21:30 Dextrose (D50w Syringe) 50 ml Q15M PRN IV DECREASED GLUCOSE; Start 03/16/18 at 21:30 Glucagon (Glucagen) 1 mg Q15M PRN IM DECREASED GLUCOSE; Start 03/16/18 at 21:30 Glucose (Glutose) 15 gm Q15M PRN BUCCAL DECREASED GLUCOSE; Start 03/16/18 at 21:30 Labetalol HCl (Normodyne) 200 mg BID PO Last administered on 03/23/18at 01:38; Admin Dose 200 MG; Start 03/16/18 at 22:00 Morphine Sulfate (morphine SULFATE (PF)) 4 mg Q4H PRN IV SEVERE PAIN LEVEL 7-10 Last administered on 03/22/18at 09:02; Admin Dose 4 MG; Start 03/17/18 at 02:00 Loperamide HCl (Imodium Cap) 2 mg Q6H PRN PO diarrhea Last administered on 03/20/18at 01:12; Admin Dose 2 MG; Start 03/17/18 at 03:30 Cholestyramine Resin (Questran) 1 pkt DAILY PO Last administered on 03/23/18 08:11; Admin Dose 1 PKT; Start 03/17/18 at 09:00 Acetaminophen (Tylenol Tab) 650 mg Q6H PRN PO MILD PAIN(1-3)OR ELEVATED TEMP Last administered on 03/19/18at 07:55; Admin Dose 650 MG; Start 03/17/18 at 14:00 Hydralazine HCl (Apresoline) 25 mg Q6H PRN PO ELEVATED SYSTOLIC BP Last administered on 03/19/18at 18:13; Admin Dose 25 MG; Start 03/18/18 at 05:30 Heparin Sodium (Porcine) (Heparin (1000 Units/ml)) 2,300 unit AFTER DIALYSIS CATHETER Last administered on 03/19/18at 01:28; Admin Dose 2,300 UNIT; Start 03/18/18 at 22:00 Dextrose 1,000 ml @ 50 mls/hr Q20H IV Last administered on 03/22/18at 04:59; Admin Dose 50 MLS/HR; Start 03/19/18 at 16:30 Collagenase (Santyl) 1 applic DAILY TOP Last administered on 03/22/18at 09:02; Admin Dose 1 APPLIC; Start 03/19/18 at 19:30 Collagenase (Santyl) 1 applic PRN PRN TOP WHEN SOILED; Start 03/19/18 at 19:30 Hydralazine HCl (Apresoline) 10 mg Q6H PRN IV elevated BP ; Start 03/19/18 at 19:30 Ferric Sodium Gluconate Complex 125 mg/Sodium Chloride 110 ml @ 110 mls/hr DAILY@1300 IVPB ; Start 03/22/18 at 20:00; Stop 03/24/18 at 13:59 Epoetin Clinton (Epogen (Esrd)) 10,000 units MoWeFr@17 SC Last administered on 03/22/18at 17:28; Admin Dose 10,000 UNITS; Start 03/22/18 at 17:00 SADA TORRES MD Mar 23, 2018 08:56
--- NOTE | 2018-03-23 09:57 | PN ---
DATE: 03/23/2018 SUBJECTIVE: The patient had hemodialysis yesterday without any complaints. No other events noted. OBJECTIVE: VITAL SIGNS: Blood pressure is 155/82, pulse 72, respirations 17, temperature 98.8. HEENT: Head is normocephalic. NECK: Supple. HEART: Regular rate. LUNGS: Show diminished breath sounds at base. ABDOMEN: Soft, nontender to palpation. No rebound or guarding. EXTREMITIES: Negative for clubbing, cyanosis, no edema. DERMATOLOGIC: No rashes. MUSCULOSKELETAL: No joint effusion. NEUROLOGIC: No change in exam. MEDICATIONS: Have been reviewed. LABORATORY DATA: Shows white count 4.7, hemoglobin 8.2, platelet count is 269, sodium 135, potassium 4.2, BUN 23, creatinine 4.51. ASSESSMENT AND PLAN: 1. End-stage renal disease. The patient had hemodialysis yesterday, tolerated well. Plan for dialy sis again tomorrow. 2. Anemia. Monitor hemoglobin and hematocrit levels. Continue Epogen. 3. Hyperkalemia, resolved. 4. Volume overload. Continue ultrafiltration dialysis. 5. Access. The patient has a Petros catheter. Pending possible Perm-A-Cath placement. We will fo llow up with Dr. Anguiano. 6. Mineral bone disorder, monitor calcium and phosphorus levels. 7. Abdominal pain, possibly from biliary colic. The patient is status post endoscopic retrograde ch olangiopancreatography with dilatation, common bile duct and stent placement. Continue to monitor. Follow up liver function tests. 8. Encephalopathy, resolved. 9. Ascites. The patient is status post paracentesis. 10. Hypertension. Continue current blood pressure regimen. 11. Gastritis. Continue proton pump inhibitor. Dictated By: SHILO LIU DO NR/NTS Conf#: [id number] DID#: [id number] CC: JF KAISER MD;*EndCC*
--- NOTE | 2018-03-23 10:49 | NUR ---
Called [facility] for HD tomorrow 03/24/18- Spoke with Caro- confirmation # [id number].
--- NOTE | 2018-03-23 13:13 | PN ---
Date/Time of Note Date/Time of Note DATE: 03/23/18 TIME: 13:12 Assessment/Plan VTE Prophylaxis Risk score (from Ns)>0 risk: 6 SCD applied (from Nsg): Yes Pharmacological prophylaxis: LMWH Lines/Catheters IV Catheter Type (from Nrsg): HD cath Urinary Cath still in place: No Assessment/Plan Hospital Course 1) fluid overload - related to renal failure 2) renal failure - hemodialysis per nephrology 3) abdominal pain - work up and treatment per GI 4) diabetes - monitor blood sugar, insulin coverage as needed Result Diagram: 03/22/18 1234 03/22/18 1234 Results 24hrs Laboratory Tests Test 03/22/18 17:07 03/23/18 00:54 03/23/18 08:07 03/23/18 12:12 Bedside Glucose 89 76 104 99 Subjective 24 Hr Interval Summary Free Text/Dictation Patient had abdominal pain overnight, none currently Exam/Review of Systems Vital Signs Vitals Vital Signs Date Temp Pulse Resp B/P (MAP) Pulse Ox O2 O2 Flow FiO2 Time Delivery Rate 03/23/18 100.4 78 16 146/71 90 Room Air 11:45 (96) 03/23/18 2.0 08:10 Intake and Output 03/22/18 03/22/18 03/23/18 1515:00 23:00 07:00 IntakeIntake Total 350 ml 700 ml OutputOutput Total 2100 ml BalanceBalance 350 ml -1400 ml Exam Constitutional: well developed Head: normocephalic, atraumatic Neck: supple Respiratory: diminished breath sounds Cardiovascular: regular rate and rhythm Gastrointestinal: soft, non-tender Extremities: normal pulses Medications Medications Current Medications Ondansetron HCl (Zofran Inj) 4 mg Q6H PRN IV NAUSEA AND/OR VOMITING Last administered on 03/16/18at 22:40; Admin Dose 4 MG; Start 03/16/18 at 18:30 Diphenhydramine HCl (Benadryl) 25 mg Q6H PRN IV ITCHING Last administered on 03/22/18at 06:31; Admin Dose 25 MG; Start 03/16/18 at 18:30 Clonidine (Catapres) 0.1 mg Q6H PRN PO ELEVATED BLOOD PRESSURE Last administered on 03/18/18at 02:50; Admin Dose 0.1 MG; Start 03/16/18 at 20:30 Insulin Aspart (Novolog Insulin Pen) NOVOLOG *MODERATE* ALGORITHM WITH MEALS BEDTIME SC ; Start 03/16/18 at 22:00 Calcitriol (Rocaltrol) 0.25 mcg DAILY PO Last administered on 03/23/18 08:11; Admin Dose 0.25 MCG; Start 03/17/18 at 09:00 Furosemide (Lasix) 40 mg BID PO Last administered on 03/23/18 01:37; Admin Dose 40 MG; Start 03/16/18 at 21:00 Levetiracetam (Keppra) 500 mg BID PO Last administered on 03/23/18 01:37; Admin Dose 500 MG; Start 03/16/18 at 21:00 Nifedipine (Procardia Xl) 30 mg DAILY PO Last administered on 03/23/18 08:11; Admin Dose 30 MG; Start 03/17/18 at 09:00 Pantoprazole (Protonix Tab) 40 mg AC BREAKFAST PO Last administered on 03/23/18 08:10; Admin Dose 40 MG; Start 03/17/18 at 07:00 Quetiapine Fumarate (Seroquel) 300 mg DAILY PO Last administered on 03/23/18 08:11; Admin Dose 300 MG; Start 03/17/18 at 09:00 Sevelamer Carbonate (Renvela) 1.6 gm WITH MEALS PO Last administered on 03/23/18 12:27; Admin Dose 1.6 GM; Start 03/17/18 at 08:00 Miscellaneous Information 1 ea NOTE XX ; Start 03/16/18 at 21:30 Glucose (Glutose) 15 gm Q15M PRN PO DECREASED GLUCOSE; Start 03/16/18 at 21:30 Glucose (Glutose) 22.5 gm Q15M PRN PO DECREASED GLUCOSE; Start 03/16/18 at 21:30 Dextrose (D50w Syringe) 25 ml Q15M PRN IV DECREASED GLUCOSE; Start 03/16/18 at 21:30 Dextrose (D50w Syringe) 50 ml Q15M PRN IV DECREASED GLUCOSE; Start 03/16/18 at 21:30 Glucagon (Glucagen) 1 mg Q15M PRN IM DECREASED GLUCOSE; Start 03/16/18 at 21:30 Glucose (Glutose) 15 gm Q15M PRN BUCCAL DECREASED GLUCOSE; Start 03/16/18 at 21:30 Labetalol HCl (Normodyne) 200 mg BID PO Last administered on 03/23/18 01:38; Admin Dose 200 MG; Start 03/16/18 at 22:00 Morphine Sulfate (morphine SULFATE (PF)) 4 mg Q4H PRN IV SEVERE PAIN LEVEL 7-10 Last administered on 03/22/18 09:02; Admin Dose 4 MG; Start 03/17/18 at 02:00 Loperamide HCl (Imodium Cap) 2 mg Q6H PRN PO diarrhea Last administered on 03/20/18at 01:12; Admin Dose 2 MG; Start 03/17/18 at 03:30 Cholestyramine Resin (Questran) 1 pkt DAILY PO Last administered on 03/23/18 08:11; Admin Dose 1 PKT; Start 03/17/18 at 09:00 Acetaminophen (Tylenol Tab) 650 mg Q6H PRN PO MILD PAIN(1-3)OR ELEVATED TEMP Last administered on 03/19/18at 07:55; Admin Dose 650 MG; Start 03/17/18 at 14:00 Hydralazine HCl (Apresoline) 25 mg Q6H PRN PO ELEVATED SYSTOLIC BP Last administered on 03/19/18at 18:13; Admin Dose 25 MG; Start 03/18/18 at 05:30 Heparin Sodium (Porcine) (Heparin (1000 Units/ml)) 2,300 unit AFTER DIALYSIS CATHETER Last administered on 03/19/18 01:28; Admin Dose 2,300 UNIT; Start 03/18/18 at 22:00 Dextrose 1,000 ml @ 50 mls/hr Q20H IV Last administered on 03/22/18at 04:59; Admin Dose 50 MLS/HR; Start 03/19/18 at 16:30 Collagenase (Santyl) 1 applic DAILY TOP Last administered on 03/22/18 09:02; Admin Dose 1 APPLIC; Start 03/19/18 at 19:30 Collagenase (Santyl) 1 applic PRN PRN TOP WHEN SOILED; Start 03/19/18 at 19:30 Hydralazine HCl (Apresoline) 10 mg Q6H PRN IV elevated BP ; Start 03/19/18 at 19:30 Ferric Sodium Gluconate Complex 125 mg/Sodium Chloride 110 ml @ 110 mls/hr DAILY@1300 IVPB ; Start 03/22/18 at 20:00; Stop 03/24/18 at 13:59 Epoetin Clinton (Epogen (Esrd)) 10,000 units MoWeFr@17 SC Last administered on 03/22/18at 17:28; Admin Dose 10,000 UNITS; Start 03/22/18 at 17:00 JF KAISER Mar 23, 2018 13:13
--- NOTE | 2018-03-23 15:13 | NUR ---
Patient refused peripheral IV. No IV line at this time.
--- NOTE | 2018-03-23 20:45 | NUR ---
RN Notes Patient off unit for midline insertion. Patient taken down to ER with AGUSTO Yee.
--- NOTE | 2018-03-23 21:30 | NUR ---
RN Notes Patient back on unit
[2018-03-23] MEDS: morphine SULFATE/PF (2 MG/2 ML) SYG IV PRN (21:45)
[2018-03-23] MEDS: DIPHENHYDRAMINE 50 MG INJ IV PRN (21:45)
[2018-03-24] VITALS (29 sets, daily range): BP systolic 107–183; BP diastolic 60–96; PULSE 66–73; RESP 18–20
[2018-03-24] MEDS: morphine SULFATE/PF (2 MG/2 ML) SYG IV PRN ×3 (02:26→13:14)
[2018-03-24] MEDS: DIPHENHYDRAMINE 50 MG INJ IV PRN ×2 (04:37→08:06)
[2018-03-24] MEDS: hydrALAzine 20 MG INJ IV PRN ×2 (04:52→16:38)
--- NOTE | 2018-03-24 05:13 | NUR ---
RN Notes Report given to AGUSTO Kent
--- NOTE | 2018-03-24 06:46 | NUR ---
RN END OF SHIFT NOTE PATIENT ALERT AND ORIENTED X 3-4, DENIED PAIN, AMBULATORY WITH ASSIST. PATIENT COMFORTABLE EN BED. BED IN THE LOWEST POSITION WITH BRAKES ENGAGED. HOURLY ROUNDING AND BED ALARM IN PLACE. WILL ENDORSE TO DAY SHIFT RN.
[2018-03-24] MEDS: INSULIN ASPART [NOVOLOG] 3 ML PEN SC SCH ×4 (07:55→20:45)
[2018-03-24] MEDS: SEVELAMER CARBONATE 0.8 GM PKT PO SCH ×4 (07:55→17:55)
[2018-03-24] MEDS: PANTOPRAZOLE (EC) 40 MG TAB PO SCH (08:06)
--- NOTE | 2018-03-24 08:09 | CONS ---
Date/Time of Note Date/Time of Note DATE: 03/24/18 TIME: 08:07 Assessment/Plan Assessment/Plan Hospital Course Impression: 1. Abdominal pain -lipase mildly elevated 03/16 420 2. Diarrhea -O/P negative. C diff negative 3. Mildly elevated lipase with mid abd pain radiating to back 4. Mild generalized small and large bowel wall thickening which per CT 03/01 could represent third spacing. 5. Hemorrhoids per pt 6. Mild hepatomegaly 7. Anemia, likely due to chronic disease -Ferritin high, Iron wnl, TIBC low, B12 wnl, folate wnl, FOB negative -no evidence of GI bleeding 8. End stage renal disease on HD 9. Cardiomegaly with mild lower lung pulmonary edema with small left effusion and mild diffuse ascites 10. Anasarca and ascites -03/15 paracentesis removed 2.9 liters 11. Diabetes 12. Hypertension 13. Elevated alk phos 14. Mildly dilated biliary system with CBD measuring 10mm 15. Chronic liver disease, likely cirrhotic with nodular liver appearance on MRCP MRCP 03/18: 1. Enlarged liver with suggestion of mild liver surface nodularity. Chronic hepatic parenchymal disease is suspected. Diffusely decreased T2 signal intensity of the liver and spleen can represent hemosiderin deposition likely in the setting of secondary hemochromatosis. 2. Large volume ascites. 3. Wall thickening of the gallbladder without gallstones. This likely relates to presence of large volume ascites. 4. Wall thickening of multiple loops of small bowel may also relate to presence of ascites. 5. No intrahepatic biliary ductal dilatation. Mild extrahepatic biliary ductal dilatation measuring up to 10 mm in the mid common bile duct with gradual distal tapering. No filling defects along the course of the common bile duct within the limitations of this exam to represent choledocholithiasis. Plan: Monitor LFTs for downward trend, and WBC Continue with diet as tolerated Continue with PPI PRN pain management Anemia work up Paracentesis as needed for abdominal distension low salt diet outpatient referral to liver specialist at [facility], [facility], or [facility] if possible for management of her likely liver cirrhosis Result Diagram: 03/24/18 0530 03/24/18 0530 Results 24hrs Laboratory Tests Test 03/23/18 12:12 03/23/18 17:48 03/23/18 20:22 03/24/18 05:30 Bedside Glucose 99 95 100 White Blood Count 5.4 Red Blood Count 3.28 L Hemoglobin 8.3 L Hematocrit 26.1 L Mean Corpuscular Volume 79.6 L Mean Corpuscular 25.3 L Hemoglobin Mean Corpuscular 31.8 L Hemoglobin Concent Red Cell Distribution 17.6 H Width Platelet Count 260 Mean Platelet Volume 9.5 Immature Granulocytes % 0.200 Neutrophils % 50.5 Lymphocytes % 30.1 Monocytes % 13.5 H Eosinophils % 4.8 Basophils % 0.9 Nucleated Red Blood 0.0 Cells % Immature Granulocytes # 0.010 Neutrophils # 2.7 Lymphocytes # 1.6 Monocytes # 0.7 Eosinophils # 0.3 Basophils # 0.1 Nucleated Red Blood 0.0 Cells # Sodium Level 133 L Potassium Level 4.2 Chloride Level 99 Carbon Dioxide Level 27 Anion Gap 7 Blood Urea Nitrogen 16 Creatinine 4.10 H Est Glomerular Filtrat 14 L Rate mL/min Glucose Level 94 Calcium Level 7.8 L Phosphorus Level 4.3 Magnesium Level 1.8 Consultation Date/Type/Reason Admit Date/Time Mar 16, 2018 at 14:01 Initial Consult Date 24 HR Interval Summary Free Text/Dictation receiving hemodialysis Exam/Review of Systems Vital Signs Vitals Vital Signs Date Temp Pulse Resp B/P (MAP) Pulse Ox O2 O2 Flow FiO2 Time Delivery Rate 03/24/18 97.1 69 20 153/76 100 Room Air 07:51 (101) 03/23/18 2.0 08:10 Intake and Output 03/23/18 03/23/18 03/24/18 1515:00 23:00 07:00 IntakeIntake Total 500 ml 400 ml BalanceBalance 500 ml 400 ml Exam Constitutional: alert, oriented, well developed Psych: no complaints, nl mood/affect Head: normocephalic, atraumatic Eyes: nl conjunctiva, EOMI, nl lids ENMT: nl external ears & nose, nl lips & teeth, nl nasal mucosa & septum Neck: supple, non-tender Respiratory: clear to auscultation, normal air movement Cardiovascular: regular rate and rhythm, nl pulses Gastrointestinal: soft, non-tender, ascites, distended Medications Medications Current Medications Ondansetron HCl (Zofran Inj) 4 mg Q6H PRN IV NAUSEA AND/OR VOMITING Last administered on 03/16/18at 22:40; Admin Dose 4 MG; Start 03/16/18 at 18:30 Diphenhydramine HCl (Benadryl) 25 mg Q6H PRN IV ITCHING Last administered on 03/24/18 08:06; Admin Dose 25 MG; Start 03/16/18 at 18:30 Clonidine (Catapres) 0.1 mg Q6H PRN PO ELEVATED BLOOD PRESSURE Last administered on 03/18/18 02:50; Admin Dose 0.1 MG; Start 03/16/18 at 20:30 Insulin Aspart (Novolog Insulin Pen) NOVOLOG *MODERATE* ALGORITHM WITH MEALS BEDTIME SC ; Start 03/16/18 at 22:00 Calcitriol (Rocaltrol) 0.25 mcg DAILY PO Last administered on 03/23/18 08:11; Admin Dose 0.25 MCG; Start 03/17/18 at 09:00 Furosemide (Lasix) 40 mg BID PO Last administered on 03/23/18 20:11; Admin Dose 40 MG; Start 03/16/18 at 21:00 Levetiracetam (Keppra) 500 mg BID PO Last administered on 03/23/18 20:11; Admin Dose 500 MG; Start 03/16/18 at 21:00 Nifedipine (Procardia Xl) 30 mg DAILY PO Last administered on 03/23/18 08:11; Admin Dose 30 MG; Start 03/17/18 at 09:00 Pantoprazole (Protonix Tab) 40 mg AC BREAKFAST PO Last administered on 03/24/18 t 08:06; Admin Dose 40 MG; Start 03/17/18 at 07:00 Quetiapine Fumarate (Seroquel) 300 mg DAILY PO Last administered on 03/23/18 08:11; Admin Dose 300 MG; Start 03/17/18 at 09:00 Sevelamer Carbonate (Renvela) 1.6 gm WITH MEALS PO Last administered on 03/23/18 17:54; Admin Dose 1.6 GM; Start 03/17/18 at 08:00 Miscellaneous Information 1 ea NOTE XX ; Start 03/16/18 at 21:30 Glucose (Glutose) 15 gm Q15M PRN PO DECREASED GLUCOSE; Start 03/16/18 at 21:30 Glucose (Glutose) 22.5 gm Q15M PRN PO DECREASED GLUCOSE; Start 03/16/18 at 21:30 Dextrose (D50w Syringe) 25 ml Q15M PRN IV DECREASED GLUCOSE; Start 03/16/18 at 21:30 Dextrose (D50w Syringe) 50 ml Q15M PRN IV DECREASED GLUCOSE; Start 03/16/18 at 21:30 Glucagon (Glucagen) 1 mg Q15M PRN IM DECREASED GLUCOSE; Start 03/16/18 at 21:30 Glucose (Glutose) 15 gm Q15M PRN BUCCAL DECREASED GLUCOSE; Start 03/16/18 at 21:30 Labetalol HCl (Normodyne) 200 mg BID PO Last administered on 03/23/18 20:11; Admin Dose 200 MG; Start 03/16/18 at 22:00 Morphine Sulfate (morphine SULFATE (PF)) 4 mg Q4H PRN IV SEVERE PAIN LEVEL 7-10 Last administered on 03/24/18 02:26; Admin Dose 4 MG; Start 03/17/18 at 02:00 Loperamide HCl (Imodium Cap) 2 mg Q6H PRN PO diarrhea Last administered on 03/20/18 01:12; Admin Dose 2 MG; Start 03/17/18 at 03:30 Cholestyramine Resin (Questran) 1 pkt DAILY PO Last administered on 03/23/18 08:11; Admin Dose 1 PKT; Start 03/17/18 at 09:00 Acetaminophen (Tylenol Tab) 650 mg Q6H PRN PO MILD PAIN(1-3)OR ELEVATED TEMP Last administered on 03/19/18 07:55; Admin Dose 650 MG; Start 03/17/18 at 14:00 Hydralazine HCl (Apresoline) 25 mg Q6H PRN PO ELEVATED SYSTOLIC BP Last administered on 03/19/18 18:13; Admin Dose 25 MG; Start 03/18/18 at 05:30 Heparin Sodium (Porcine) (Heparin (1000 Units/ml)) 2,300 unit AFTER DIALYSIS CATHETER Last administered on 03/19/18 01:28; Admin Dose 2,300 UNIT; Start 03/18/18 at 22:00 Dextrose 1,000 ml @ 50 mls/hr Q20H IV Last administered on 03/23/18 21:45; Admin Dose 50 MLS/HR; Start 03/19/18 at 16:30 Collagenase (Santyl) 1 applic DAILY TOP Last administered on 12/31/18at 09:02; Admin Dose 1 APPLIC; Start 03/19/18 at 19:30 Collagenase (Santyl) 1 applic PRN PRN TOP WHEN SOILED Last administered on 03/23/18at 21:45; Admin Dose 1 APPLIC; Start 03/19/18 at 19:30 Hydralazine HCl (Apresoline) 10 mg Q6H PRN IV elevated BP Last administered on 03/24/18at 04:52; Admin Dose 10 MG; Start 03/19/18 at 19:30 Ferric Sodium Gluconate Complex 125 mg/Sodium Chloride 110 ml @ 110 mls/hr DAILY@1300 IVPB ; Start 03/22/18 at 20:00; Stop 03/24/18 at 13:59 Epoetin Clinton (Epogen (Esrd)) 10,000 units MoWeFr@17 SC Last administered on 03/22/18at 17:28; Admin Dose 10,000 UNITS; Start 03/22/18 at 17:00 Multivit/Ca Carb/ B Cmplx/FA/Prenat (Alena-Martin) 1 tab DAILY PO ; Start 03/24/18 at 09:00 SADA TORRES MD Mar 24, 2018 08:09
--- NOTE | 2018-03-24 08:30 | NUR ---
Patient on HD will give the rest of am meds after HD.
--- NOTE | 2018-03-24 08:35 | PN ---
DATE: 03/24/2018 SUBJECTIVE: The patient is stable, no events overnight. No fevers, chills, nausea, vomiting. OBJECTIVE: VITAL SIGNS: Blood pressure is 163/85, respiration 18, pulse 67, temperature 98.9. HEENT: Head is normocephalic. NECK: Supple. HEART: Regular rate. LUNGS: Show diminished breath sounds at the base. ABDOMEN: Soft, nontender to palpation without rebound or guarding. EXTREMITIES: Negative for clubbing, cyanosis, no edema. DERMATOLOGIC: No rashes. MUSCULOSKELETAL: No joint effusions. NEUROLOGIC: No change in exam. MEDICATIONS: The patient's medications have been reviewed. LABORATORY DATA: Shows a sodium 133, potassium 4.2, BUN 16, creatinine 4.10, calcium 7.8. White cou nt 5.4, hemoglobin 8.3, platelet count is 260. ASSESSMENT AND PLAN: 1. End-stage renal disease. The patient is stable, dialyze 3 hours 2k bath, calcium 2.5. 2. Access. The patient has a Petros catheter. We will follow up with Dr. Anguiano for placement of a possible Perm-A-Cath. The patient will also need revision of AV fistula. 3. Anemia. Continue to monitor hemoglobin and hematocrit levels. Will continue Epogen as needed. 4. Mineral bone disorder, monitor calcium and phosphorus levels. Check vitamin D level, PTH level. 5. Hyperkalemia, resolved. 6. Volume overload. Continue ultrafiltration dialysis. 7. Abdominal pain secondary to biliary colic. The patient is status post endoscopic retrograde chol angiopancreatography with dilatation of common bile duct and stent placement. Continue to monitor. Follow up with liver function tests. Follow up with gastroenterology. 8. Encephalopathy, resolved. 9. Ascites, status post paracentesis. 10. Hypertension. Continue current blood pressure regimen. 11. Gastritis. Continue proton pump inhibitor. Dictated By: SHILO LIU DO NR/NTS Conf#: [id number] DID#: [id number] CC: JF KAISER MD;*EndCC*
--- NOTE | 2018-03-24 11:20 | NUR ---
Pt completed hemodialysis well. total uf removal 2000 ml. Pt endorsed to deisy Flores. Addendum: 03/24/18 at 1622 by LINA DOWELL Primary AGUSTO Flores.
[2018-03-24] MEDS: HEPARIN 1000 UNITS/ML 10 ML INJ CATHETER SCH (11:47)
[2018-03-24] MEDS: CHOLESTYRAMINE 4 GM PACKET PO SCH (11:52)
[2018-03-24] MEDS: MULTIVIT/CA CARB/B CMPLX/FA TAB PO SCH (11:53)
[2018-03-24] MEDS: QUETIAPINE 100 MG TAB PO SCH (11:57)
[2018-03-24] MEDS: CALCITRIOL 0.25 MCG CAP PO SCH (11:58)
[2018-03-24] MEDS: FUROSEMIDE 40 MG TAB PO SCH ×2 (11:58→20:18)
[2018-03-24] MEDS: LEVETIRACETAM 500 MG TAB PO SCH ×2 (11:58→20:17)
[2018-03-24] MEDS: NIFEdipine (XL) 30 MG TAB PO SCH (11:59)
[2018-03-24] MEDS: LABETALOL 200 MG TAB PO SCH ×2 (11:59→20:17)
[2018-03-24] MEDS: COLLAGENASE 5 GM (UD JAR) TOP SCH (12:00)
[2018-03-24] MEDS: SOD FERRIC GLUC COMPLX 125 MG in SOD CHLORIDE 0.9% 100 ML IVPB SCH (13:46)
--- NOTE | 2018-03-24 14:45 | NUR ---
Patient on air mattress bed.
--- NOTE | 2018-03-24 16:11 | PN ---
Date/Time of Note Date/Time of Note DATE: 03/24/18 TIME: 15:56 Assessment/Plan VTE Prophylaxis Risk score (from Nsg)>0 risk: 6 SCD applied (from Nsg): Yes Pharmacological prophylaxis: heparin Lines/Catheters IV Catheter Type (from Nrsg): HD access Central line still needed: Yes Urinary Cath still in place: No Assessment/Plan Hospital Course Patient is able to tolerate diet without nausea and vomiting, continues to have poor appetite status post hemodialysis today. Assessment/Plan -Abdominal pain status post ERCP with sphincterectomy, removal of stone and stenting by Dr. Webb. -Chronic liver disease -Anasarca and ascites, s/p paracentesis removed 2.9 liters on 03/15. -Hemodialysis dependent end-stage renal disease. Continue hemodialysis per nephrology. Dr. Bledsoe is following in nephrology consultation -Hypertension, continue Procardia and hydralazine as needed. -Diabetes, NovoLog per mild algorithm sliding scale -Seizure disorder, continue Keppra -Gastritis, continue PPI -Anemia of chronic disease, continue Epogen -Depressive disorder with psychosis. Continue Seroquel. Further recommendations based on clinical course. Plan of care discussed with Dr. Smith. Result Diagram: 03/24/18 0530 03/24/18 0530 Results 24hrs Laboratory Tests Test 03/23/18 17:48 03/23/18 20:22 03/24/18 05:30 03/24/18 08:15 Bedside Glucose 95 100 91 White Blood Count 5.4 Red Blood Count 3.28 L Hemoglobin 8.3 L Hematocrit 26.1 L Mean Corpuscular Volume 79.6 L Mean Corpuscular 25.3 L Hemoglobin Mean Corpuscular 31.8 L Hemoglobin Concent Red Cell Distribution 17.6 H Width Platelet Count 260 Mean Platelet Volume 9.5 Immature Granulocytes % 0.200 Neutrophils % 50.5 Lymphocytes % 30.1 Monocytes % 13.5 H Eosinophils % 4.8 Basophils % 0.9 Nucleated Red Blood 0.0 Cells % Immature Granulocytes # 0.010 Neutrophils # 2.7 Lymphocytes # 1.6 Monocytes # 0.7 Eosinophils # 0.3 Basophils # 0.1 Nucleated Red Blood 0.0 Cells # Sodium Level 133 L Potassium Level 4.2 Chloride Level 99 Carbon Dioxide Level 27 Anion Gap 7 Blood Urea Nitrogen 16 Creatinine 4.10 H Est Glomerular Filtrat 14 L Rate mL/min Glucose Level 94 Calcium Level 7.8 L Phosphorus Level 4.3 Magnesium Level 1.8 Vitamin D 1,25-Dihydroxy < 12.8 L Test 03/24/18 11:50 Bedside Glucose 104 Exam/Review of Systems Vital Signs Vitals Vital Signs Date Temp Pulse Resp B/P (MAP) Pulse Ox O2 O2 Flow FiO2 Time Delivery Rate 03/24/18 98.6 73 15:29 03/24/18 18 107/60 100 Room Air 11:28 (76) 03/23/18 2.0 08:10 Intake and Output 03/23/18 03/23/18 03/24/18 1414:59 22:59 06:59 IntakeIntake Total 500 ml 400 ml BalanceBalance 500 ml 400 ml Exam Constitutional: alert, oriented Respiratory: clear to auscultation Cardiovascular: regular rate and rhythm Gastrointestinal: soft, distended Musculoskeletal: nl extremities to inspection Extremities: normal pulses Neurological: nl mental status Additional Comments Left chest hemodialysis catheter Medications Medications Current Medications Ondansetron HCl (Zofran Inj) 4 mg Q6H PRN IV NAUSEA AND/OR VOMITING Last administered on 03/16/18 22:40; Admin Dose 4 MG; Start 03/16/18 at 18:30 Diphenhydramine HCl (Benadryl) 25 mg Q6H PRN IV ITCHING Last administered on 03/24/18 08:06; Admin Dose 25 MG; Start 03/16/18 at 18:30 Clonidine (Catapres) 0.1 mg Q6H PRN PO ELEVATED BLOOD PRESSURE Last administered on 03/18/18at 02:50; Admin Dose 0.1 MG; Start 03/16/18 at 20:30 Insulin Aspart (Novolog Insulin Pen) NOVOLOG *MODERATE* ALGORITHM WITH MEALS BEDTIME SC ; Start 03/16/18 at 22:00 Calcitriol (Rocaltrol) 0.25 mcg DAILY PO Last administered on 03/24/18 11:58; Admin Dose 0.25 MCG; Start 03/17/18 at 09:00 Furosemide (Lasix) 40 mg BID PO Last administered on 03/24/18 11:58; Admin Dose 40 MG; Start 03/16/18 at 21:00 Levetiracetam (Keppra) 500 mg BID PO Last administered on 03/24/18 11:58; Admin Dose 500 MG; Start 03/16/18 at 21:00 Nifedipine (Procardia Xl) 30 mg DAILY PO Last administered on 03/24/18 11:59; Admin Dose 30 MG; Start 03/17/18 at 09:00 Pantoprazole (Protonix Tab) 40 mg AC BREAKFAST PO Last administered on 03/24/18 08:06; Admin Dose 40 MG; Start 03/17/18 at 07:00 Quetiapine Fumarate (Seroquel) 300 mg DAILY PO Last administered on 03/24/18 11:57; Admin Dose 300 MG; Start 03/17/18 at 09:00 Sevelamer Carbonate (Renvela) 1.6 gm WITH MEALS PO Last administered on 03/24/18 11:52; Admin Dose 1.6 GM; Start 03/17/18 at 08:00 Miscellaneous Information 1 ea NOTE XX ; Start 03/16/18 at 21:30 Glucose (Glutose) 15 gm Q15M PRN PO DECREASED GLUCOSE; Start 03/16/18 at 21:30 Glucose (Glutose) 22.5 gm Q15M PRN PO DECREASED GLUCOSE; Start 03/16/18 at 21:30 Dextrose (D50w Syringe) 25 ml Q15M PRN IV DECREASED GLUCOSE; Start 03/16/18 at 21:30 Dextrose (D50w Syringe) 50 ml Q15M PRN IV DECREASED GLUCOSE; Start 03/16/18 at 21:30 Glucagon (Glucagen) 1 mg Q15M PRN IM DECREASED GLUCOSE; Start 03/16/18 at 21:30 Glucose (Glutose) 15 gm Q15M PRN BUCCAL DECREASED GLUCOSE; Start 03/16/18 at 21:30 Labetalol HCl (Normodyne) 200 mg BID PO Last administered on 03/24/18 11:59; Admin Dose 200 MG; Start 03/16/18 at 22:00 Morphine Sulfate (morphine SULFATE (PF)) 4 mg Q4H PRN IV SEVERE PAIN LEVEL 7-10 Last administered on 03/24/18 13:14; Admin Dose 4 MG; Start 03/17/18 at 02:00 Loperamide HCl (Imodium Cap) 2 mg Q6H PRN PO diarrhea Last administered on 03/20/18at 01:12; Admin Dose 2 MG; Start 03/17/18 at 03:30 Cholestyramine Resin (Questran) 1 pkt DAILY PO Last administered on 03/24/18 11:52; Admin Dose 1 PKT; Start 03/17/18 at 09:00 Acetaminophen (Tylenol Tab) 650 mg Q6H PRN PO MILD PAIN(1-3)OR ELEVATED TEMP Last administered on 03/19/18 07:55; Admin Dose 650 MG; Start 03/17/18 at 14:00 Hydralazine HCl (Apresoline) 25 mg Q6H PRN PO ELEVATED SYSTOLIC BP Last administered on 03/19/18 18:13; Admin Dose 25 MG; Start 03/18/18 at 05:30 Heparin Sodium (Porcine) (Heparin (1000 Units/ml)) 2,300 unit AFTER DIALYSIS CATHETER Last administered on 03/24/18 11:47; Admin Dose 2,300 UNIT; Start 03/18/18 at 22:00 Dextrose 1,000 ml @ 50 mls/hr Q20H IV Last administered on 03/23/18 21:45; Admin Dose 50 MLS/HR; Start 03/19/18 at 16:30 Collagenase (Santyl) 1 applic DAILY TOP Last administered on 03/24/18 12:00; Admin Dose 1 APPLIC; Start 03/19/18 at 19:30 Collagenase (Santyl) 1 applic PRN PRN TOP WHEN SOILED Last administered on 03/23/18 21:45; Admin Dose 1 APPLIC; Start 03/19/18 at 19:30 Hydralazine HCl (Apresoline) 10 mg Q6H PRN IV elevated BP Last administered on 03/24/18 04:52; Admin Dose 10 MG; Start 03/19/18 at 19:30 Epoetin Clinton (Epogen (Esrd)) 10,000 units MoWeFr@17 SC Last administered on 03/22/18 17:28; Admin Dose 10,000 UNITS; Start 03/22/18 at 17:00 Multivit/Ca Carb/ B Cmplx/FA/Prenat (Alena-Martin) 1 tab DAILY PO Last administered on 03/24/18 11:53; Admin Dose 1 TAB; Start 03/24/18 at 09:00 BLAKE MORALES Mar 24, 2018 16:06
[2018-03-24] MEDS: DEXTROSE 5% 1,000 ML IV SCH (16:30)
[2018-03-24] MEDS: EPOETIN 10000 UNITS/1 ML INJ (ESRD) SC SCH (17:55)
[2018-03-24] MEDS: morphine LIQ (10 MG/5 ML) CUP PO PRN (18:21)
--- NOTE | 2018-03-24 18:51 | NUR ---
EOSS: Patient A/A/Ox4 with periods of forgetfulness, SR on monitor. Encouraged to eat, no n/v noted. BS checked as ordered. Patient with HD today, 2L out. Patient medicated for pain as needed. On air mattress bed. Wound care done as ordered. Remind to reposition while in bed. Will continue to monitor.
[2018-03-25] VITALS (13 sets, daily range): BP systolic 111–143; BP diastolic 63–95; PULSE 33–88; RESP 16–19
[2018-03-25] MEDS: morphine LIQ (10 MG/5 ML) CUP PO PRN ×2 (03:30→22:06)
[2018-03-25] MEDS: DIPHENHYDRAMINE 50 MG INJ IV PRN ×3 (03:30→18:42)
[2018-03-25] MEDS: PANTOPRAZOLE (EC) 40 MG TAB PO SCH (06:47)
--- NOTE | 2018-03-25 07:32 | NUR ---
EOSS AAOx4, sometimes forgetful. VSS, no SOB. Patient complaint of abdominal pain, relieved with PRN pain medications. Patient complaint of itch, relieved with PRN Benadryl. Sacrococcyx dressing changed. D5W running at 50ml/hr. Patient OOB to toilet x1 to void. Patient stable at this time, will endorse to oncoming shift.
[2018-03-25] MEDS: INSULIN ASPART [NOVOLOG] 3 ML PEN SC SCH ×4 (07:55→21:00)
[2018-03-25] MEDS: CHOLESTYRAMINE 4 GM PACKET PO SCH (08:31)
[2018-03-25] MEDS: SEVELAMER CARBONATE 0.8 GM PKT PO SCH ×3 (08:31→17:20)
[2018-03-25] MEDS: QUETIAPINE 100 MG TAB PO SCH (08:32)
[2018-03-25] MEDS: LEVETIRACETAM 500 MG TAB PO SCH ×2 (08:32→21:21)
[2018-03-25] MEDS: CALCITRIOL 0.25 MCG CAP PO SCH (08:32)
[2018-03-25] MEDS: MULTIVIT/CA CARB/B CMPLX/FA TAB PO SCH (08:32)
[2018-03-25] MEDS: NIFEdipine (XL) 30 MG TAB PO SCH (08:33)
[2018-03-25] MEDS: FUROSEMIDE 40 MG TAB PO SCH ×2 (08:33→21:21)
[2018-03-25] MEDS: LABETALOL 200 MG TAB PO SCH ×2 (08:34→21:20)
[2018-03-25] MEDS: COLLAGENASE 5 GM (UD JAR) TOP SCH (08:34)
--- NOTE | 2018-03-25 08:57 | PN ---
DATE: 03/25/2018 SUBJECTIVE: The patient is stable, no events overnight. OBJECTIVE: VITAL SIGNS: Blood pressure 134/72, respirations 17, pulse 65, temperature 98.9. HEENT: Head is normocephalic. NECK: Supple. HEART: Regular rate. LUNGS: Show diminished breath sounds at the base. ABDOMEN: Soft, nontender to palpation. No rebound or guarding. EXTREMITIES: Negative for clubbing, cyanosis, no edema. DERMATOLOGIC: No rashes. MUSCULOSKELETAL: No joint effusion. NEUROLOGIC: No change in exam. MEDICATIONS: Reviewed. LABORATORY DATA: Has been reviewed. ASSESSMENT AND PLAN: 1. End-stage renal disease. The patient had hemodialysis yesterday, tolerated well. Anticipate tylor lysis tomorrow. 2. Access. The patient has a Petros catheter. I spoke with Dr. Anguiano who is pending Perm-A-Ca th placement and possible revision of AV fistula. 3. Anemia. Continue to monitor hemoglobin and hematocrit levels. Continue Epogen as needed. 4. Mineral bone disorder, monitor calcium and phosphorous levels, vitamin D, PTH levels are pending. 5. Hyperkalemia, resolving. 6. Volume overload. Continue ultrafiltration dialysis. 7. Abdominal pain secondary to biliary colic. The patient is status post endoscopic retrograde chol angiopancreatography with dilatation of common bile duct and stent placement. Continue to monitor. Follow up with gastroenterology. 8. Encephalopathy, resolved. 9. Ascites, status post paracentesis. 10. Hypertension. Continue current blood pressure regimen. 11. Gastritis. Continue proton pump inhibitor. Dictated By: SHILO REICH/ANTONINO Conf#: [id number] DID#: [id number] CC: JF KAISER MD;*EndCC*
[2018-03-25] MEDS: DEXTROSE 5% 1,000 ML IV SCH (12:30)
--- NOTE | 2018-03-25 14:21 | PN ---
Date/Time of Note Date/Time of Note DATE: 03/25/18 TIME: 14:19 Assessment/Plan VTE Prophylaxis Risk score (from Ns)>0 risk: 6 SCD applied (from Nsg): Yes Pharmacological prophylaxis: heparin Lines/Catheters IV Catheter Type (from Nrs): HD cath Urinary Cath still in place: No Assessment/Plan Hospital Course Patient is awake alert, no acute distress, denies any nausea. Assessment/Plan -Abdominal pain status post ERCP with sphincterectomy, removal of stone and st enting by Dr. Webb. -Chronic liver disease -Anasarca and ascites, s/p paracentesis removed 2.9 liters on 03/15. -Hemodialysis dependent end-stage renal disease. Continue hemodialysis per nephrology. Dr. Bledsoe is following in nephrology consultation -Hypertension, continue Procardia and hydralazine as needed. -Diabetes, NovoLog per mild algorithm sliding scale -Seizure disorder, continue Keppra -Gastritis, continue PPI -Anemia of chronic disease, continue Epogen -Depressive disorder with psychosis. Continue Seroquel. Further recommendations based on clinical course. Plan of care discussed with Dr. Smith. Result Diagram: 03/24/18 0530 03/24/18 0530 Results 24hrs Laboratory Tests Test 03/24/18 17:50 03/24/18 20:42 03/25/18 08:29 03/25/18 12:44 Bedside Glucose 117 93 80 82 Exam/Review of Systems Vital Signs Vitals Vital Signs Date Temp Pulse Resp B/P (MAP) Pulse Ox O2 O2 Flow FiO2 Time Delivery Rate 03/25/18 60 12:00 03/25/18 97.6 17 130/70 98 11:32 (90) 03/25/18 Room Air 03:58 03/23/18 2.0 08:10 Intake and Output 03/24/18 03/24/18 03/25/18 1515:00 23:00 07:00 IntakeIntake Total 110 ml 1100 ml 550 ml OutputOutput Total 400 ml BalanceBalance -290 ml 1100 ml 550 ml Exam Constitutional: alert, oriented Respiratory: clear to auscultation Cardiovascular: regular rate and rhythm Gastrointestinal: soft, distended Musculoskeletal: nl extremities to inspection Extremities: normal pulses Additional Comments Left chest hemodialysis catheter Medications Medications Current Medications Ondansetron HCl (Zofran Inj) 4 mg Q6H PRN IV NAUSEA AND/OR VOMITING Last administered on 03/16/18at 22:40; Admin Dose 4 MG; Start 03/16/18 at 18:30 Diphenhydramine HCl (Benadryl) 25 mg Q6H PRN IV ITCHING Last administered on 03/25/18 10:18; Admin Dose 25 MG; Start 03/16/18 at 18:30 Clonidine (Catapres) 0.1 mg Q6H PRN PO ELEVATED BLOOD PRESSURE Last administered on 03/18/18at 02:50; Admin Dose 0.1 MG; Start 03/16/18 at 20:30 Insulin Aspart (Novolog Insulin Pen) NOVOLOG *MODERATE* ALGORITHM WITH MEALS BEDTIME SC ; Start 03/16/18 at 22:00 Calcitriol (Rocaltrol) 0.25 mcg DAILY PO Last administered on 03/25/18 08:32; Admin Dose 0.25 MCG; Start 03/17/18 at 09:00 Furosemide (Lasix) 40 mg BID PO Last administered on 03/25/18 08:33; Admin Dose 40 MG; Start 03/16/18 at 21:00 Levetiracetam (Keppra) 500 mg BID PO Last administered on 03/25/18 08:32; Admin Dose 500 MG; Start 03/16/18 at 21:00 Nifedipine (Procardia Xl) 30 mg DAILY PO Last administered on 03/25/18 08:33; Admin Dose 30 MG; Start 03/17/18 at 09:00 Pantoprazole (Protonix Tab) 40 mg AC BREAKFAST PO Last administered on 06:47; Admin Dose 40 MG; Start 03/17/18 at 07:00 Quetiapine Fumarate (Seroquel) 300 mg DAILY PO Last administered on 03/25/18 08:32; Admin Dose 300 MG; Start 03/17/18 at 09:00 Sevelamer Carbonate (Renvela) 1.6 gm WITH MEALS PO Last administered on 03/25/18 12:54; Admin Dose 1.6 GM; Start 03/17/18 at 08:00 Miscellaneous Information 1 ea NOTE XX ; Start 03/16/18 at 21:30 Glucose (Glutose) 15 gm Q15M PRN PO DECREASED GLUCOSE; Start 03/16/18 at 21:30 Glucose (Glutose) 22.5 gm Q15M PRN PO DECREASED GLUCOSE; Start 03/16/18 at 21:30 Dextrose (D50w Syringe) 25 ml Q15M PRN IV DECREASED GLUCOSE; Start 03/16/18 at 21:30 Dextrose (D50w Syringe) 50 ml Q15M PRN IV DECREASED GLUCOSE; Start 03/16/18 at 21:30 Glucagon (Glucagen) 1 mg Q15M PRN IM DECREASED GLUCOSE; Start 03/16/18 at 21:30 Glucose (Glutose) 15 gm Q15M PRN BUCCAL DECREASED GLUCOSE; Start 03/16/18 at 21:30 Labetalol HCl (Normodyne) 200 mg BID PO Last administered on 03/25/18 08:34; Admin Dose 200 MG; Start 03/16/18 at 22:00 Loperamide HCl (Imodium Cap) 2 mg Q6H PRN PO diarrhea Last administered on 03/20/18at 01:12; Admin Dose 2 MG; Start 03/17/18 at 03:30 Cholestyramine Resin (Questran) 1 pkt DAILY PO Last administered on 03/25/18 08:31; Admin Dose 1 PKT; Start 03/17/18 at 09:00 Acetaminophen (Tylenol Tab) 650 mg Q6H PRN PO MILD PAIN(1-3)OR ELEVATED TEMP Last administered on 03/19/18at 07:55; Admin Dose 650 MG; Start 03/17/18 at 14:00 Hydralazine HCl (Apresoline) 25 mg Q6H PRN PO ELEVATED SYSTOLIC BP Last administered on 03/19/18at 18:13; Admin Dose 25 MG; Start 03/18/18 at 05:30 Heparin Sodium (Porcine) (Heparin (1000 Units/ml)) 2,300 unit AFTER DIALYSIS CATHETER Last administered on 03/24/18 11:47; Admin Dose 2,300 UNIT; Start 03/18/18 at 22:00 Dextrose 1,000 ml @ 50 mls/hr Q20H IV Last administered on 03/23/18 21:45; Admin Dose 50 MLS/HR; Start 03/19/18 at 16:30 Collagenase (Santyl) 1 applic DAILY TOP Last administered on 03/25/18 08:34; Admin Dose 1 APPLIC; Start 03/19/18 at 19:30 Collagenase (Santyl) 1 applic PRN PRN TOP WHEN SOILED Last administered on 03/23/18 21:45; Admin Dose 1 APPLIC; Start 03/19/18 at 19:30 Hydralazine HCl (Apresoline) 10 mg Q6H PRN IV elevated BP Last administered on 03/24/18 16:38; Admin Dose 10 MG; Start 03/19/18 at 19:30 Epoetin Clinton (Epogen (Esrd)) 10,000 units MoWeFr@17 SC Last administered on 03/24/18 17:55; Admin Dose 10,000 UNITS; Start 03/22/18 at 17:00 Multivit/Ca Carb/ B Cmplx/FA/Prenat (Alena-Martin) 1 tab DAILY PO Last administered on 03/25/18 08:32; Admin Dose 1 TAB; Start 03/24/18 at 09:00 Morphine Sulfate (morphine) 10 mg Q4H PRN PO SEVERE PAIN LEVEL 7-10 Last administered on 03/25/18 03:30; Admin Dose 10 MG; Start 03/24/18 at 16:30 BLAKE MORALES Mar 25, 2018 14:21
--- NOTE | 2018-03-25 15:22 | CONS ---
Date/Time of Note Date/Time of Note DATE: 03/25/18 TIME: 15:21 Assessment/Plan Assessment/Plan Hospital Course Impression: 1. Abdominal pain -lipase mildly elevated 03/16 420 2. Diarrhea -O/P negative. C diff negative 3. Mildly elevated lipase with mid abd pain radiating to back 4. Mild generalized small and large bowel wall thickening which per CT 03/01 could represent third spacing. 5. Hemorrhoids per pt 6. Mild hepatomegaly 7. Anemia, likely due to chronic disease -Ferritin high, Iron wnl, TIBC low, B12 wnl, folate wnl, FOB negative -no evidence of GI bleeding 8. End stage renal disease on HD 9. Cardiomegaly with mild lower lung pulmonary edema with small left effusion and mild diffuse ascites 10. Anasarca and ascites -03/15 paracentesis removed 2.9 liters 11. Diabetes 12. Hypertension 13. Elevated alk phos 14. Mildly dilated biliary system with CBD measuring 10mm 15. Chronic liver disease, likely cirrhotic with nodular liver appearance on MRCP MRCP 03/18: 1. Enlarged liver with suggestion of mild liver surface nodularity. Chronic hepatic parenchymal disease is suspected. Diffusely decreased T2 signal intensity of the liver and spleen can represent hemosiderin deposition likely in the setting of secondary hemochromatosis. 2. Large volume ascites. 3. Wall thickening of the gallbladder without gallstones. This likely relates to presence of large volume ascites. 4. Wall thickening of multiple loops of small bowel may also relate to presence of ascites. 5. No intrahepatic biliary ductal dilatation. Mild extrahepatic biliary ductal dilatation measuring up to 10 mm in the mid common bile duct with gradual distal tapering. No filling defects along the course of the common bile duct within the limitations of this exam to represent choledocholithiasis. Plan: Monitor LFTs for downward trend, and WBC Continue with diet as tolerated Continue with PPI PRN pain management Anemia work up Paracentesis as needed for abdominal distension low salt diet outpatient referral to liver specialist at [facility], [facility], or [facility] if possible for management of her likely liver cirrhosis continue supportive care Result Diagram: 03/24/18 0530 03/24/18 0530 Results 24hrs Laboratory Tests Test 03/24/18 17:50 03/24/18 20:42 03/25/18 08:29 03/25/18 12:44 Bedside Glucose 117 93 80 82 Consultation Date/Type/Reason Admit Date/Time Mar 16, 2018 at 14:01 Initial Consult Date 24 HR Interval Summary Free Text/Dictation mild abdominal pain, no n/v Exam/Review of Systems Vital Signs Vitals Vital Signs Date Temp Pulse Resp B/P (MAP) Pulse Ox O2 O2 Flow FiO2 Time Delivery Rate 03/25/18 60 12:00 03/25/18 97.6 17 130/70 98 11:32 (90) 03/25/18 Room Air 03:58 03/23/18 2.0 08:10 Intake and Output 03/24/18 03/24/18 03/25/18 1515:00 23:00 07:00 IntakeIntake Total 110 ml 1100 ml 550 ml OutputOutput Total 400 ml BalanceBalance -290 ml 1100 ml 550 ml Exam Constitutional: alert, oriented, well developed Psych: no complaints, nl mood/affect Head: normocephalic, atraumatic Eyes: nl conjunctiva, EOMI, nl lids ENMT: nl external ears & nose, nl lips & teeth, nl nasal mucosa & septum Neck: supple, non-tender Respiratory: clear to auscultation, normal air movement Cardiovascular: regular rate and rhythm, nl pulses Gastrointestinal: soft, distended Medications Medications Current Medications Ondansetron HCl (Zofran Inj) 4 mg Q6H PRN IV NAUSEA AND/OR VOMITING Last administered on 03/16/18at 22:40; Admin Dose 4 MG; Start 03/16/18 at 18:30 Diphenhydramine HCl (Benadryl) 25 mg Q6H PRN IV ITCHING Last administered on 03/25/18at 10:18; Admin Dose 25 MG; Start 03/16/18 at 18:30 Clonidine (Catapres) 0.1 mg Q6H PRN PO ELEVATED BLOOD PRESSURE Last administered on 03/18/18at 02:50; Admin Dose 0.1 MG; Start 03/16/18 at 20:30 Insulin Aspart (Novolog Insulin Pen) NOVOLOG *MODERATE* ALGORITHM WITH MEALS BEDTIME SC ; Start 03/16/18 at 22:00 Calcitriol (Rocaltrol) 0.25 mcg DAILY PO Last administered on 03/25/18at 08:32; Admin Dose 0.25 MCG; Start 03/17/18 at 09:00 Furosemide (Lasix) 40 mg BID PO Last administered on 03/25/18 08:33; Admin Dose 40 MG; Start 03/16/18 at 21:00 Levetiracetam (Keppra) 500 mg BID PO Last administered on 03/25/18 08:32; Admin Dose 500 MG; Start 03/16/18 at 21:00 Nifedipine (Procardia Xl) 30 mg DAILY PO Last administered on 03/25/18 08:33; Admin Dose 30 MG; Start 03/17/18 at 09:00 Pantoprazole (Protonix Tab) 40 mg AC BREAKFAST PO Last administered on 03/25/18 06:47; Admin Dose 40 MG; Start 03/17/18 at 07:00 Quetiapine Fumarate (Seroquel) 300 mg DAILY PO Last administered on 03/25/18 08:32; Admin Dose 300 MG; Start 03/17/18 at 09:00 Sevelamer Carbonate (Renvela) 1.6 gm WITH MEALS PO Last administered on 03/25/18 12:54; Admin Dose 1.6 GM; Start 03/17/18 at 08:00 Miscellaneous Information 1 ea NOTE XX ; Start 03/16/18 at 21:30 Glucose (Glutose) 15 gm Q15M PRN PO DECREASED GLUCOSE; Start 03/16/18 at 21:30 Glucose (Glutose) 22.5 gm Q15M PRN PO DECREASED GLUCOSE; Start 03/16/18 at 21:30 Dextrose (D50w Syringe) 25 ml Q15M PRN IV DECREASED GLUCOSE; Start 03/16/18 at 21:30 Dextrose (D50w Syringe) 50 ml Q15M PRN IV DECREASED GLUCOSE; Start 03/16/18 at 21:30 Glucagon (Glucagen) 1 mg Q15M PRN IM DECREASED GLUCOSE; Start 03/16/18 at 21:30 Glucose (Glutose) 15 gm Q15M PRN BUCCAL DECREASED GLUCOSE; Start 03/16/18 at 21:30 Labetalol HCl (Normodyne) 200 mg BID PO Last administered on 03/25/18 08:34; Admin Dose 200 MG; Start 03/16/18 at 22:00 Loperamide HCl (Imodium Cap) 2 mg Q6H PRN PO diarrhea Last administered on 03/20/18 01:12; Admin Dose 2 MG; Start 03/17/18 at 03:30 Cholestyramine Resin (Questran) 1 pkt DAILY PO Last administered on 03/25/18 08:31; Admin Dose 1 PKT; Start 03/17/18 at 09:00 Acetaminophen (Tylenol Tab) 650 mg Q6H PRN PO MILD PAIN(1-3)OR ELEVATED TEMP Last administered on 03/19/18 07:55; Admin Dose 650 MG; Start 03/17/18 at 14:00 Hydralazine HCl (Apresoline) 25 mg Q6H PRN PO ELEVATED SYSTOLIC BP Last administered on 03/19/18 18:13; Admin Dose 25 MG; Start 03/18/18 at 05:30 Heparin Sodium (Porcine) (Heparin (1000 Units/ml)) 2,300 unit AFTER DIALYSIS CATHETER Last administered on 03/24/18 11:47; Admin Dose 2,300 UNIT; Start 03/18/18 at 22:00 Collagenase (Santyl) 1 applic DAILY TOP Last administered on 03/25/18 08:34; Admin Dose 1 APPLIC; Start 03/19/18 at 19:30 Collagenase (Santyl) 1 applic PRN PRN TOP WHEN SOILED Last administered on 03/23/18 21:45; Admin Dose 1 APPLIC; Start 03/19/18 at 19:30 Hydralazine HCl (Apresoline) 10 mg Q6H PRN IV elevated BP Last administered on 03/24/18 16:38; Admin Dose 10 MG; Start 03/19/18 at 19:30 Epoetin Clinton (Epogen (Esrd)) 10,000 units MoWeFr@17 SC Last administered on 03/24/18 17:55; Admin Dose 10,000 UNITS; Start 03/22/18 at 17:00 Multivit/Ca Carb/ B Cmplx/FA/Prenat (Alena-Martin) 1 tab DAILY PO Last adm inistered on 03/25/18 08:32; Admin Dose 1 TAB; Start 03/24/18 at 09:00 Morphine Sulfate (morphine) 10 mg Q4H PRN PO SEVERE PAIN LEVEL 7-10 Last administered on 03/25/18 03:30; Admin Dose 10 MG; Start 03/24/18 at 16:30 SADA TORRES MD Mar 25, 2018 15:22
--- NOTE | 2018-03-25 15:45 | NUR ---
HD: Orders for HD tomorrow 03/26 - Confirmation #[id number].
--- NOTE | 2018-03-25 19:02 | NUR ---
EOSS: Patient is AAOx4, SR on the monitor. VSS, c/o generalized itchiness - Benadryl administered. Abdomen distended - Lauren, WALLCOVERING TEXTURER made aware. IV fluids DC'd. Plan for HD tomorrow. Hourly rounding done, fall precautions initiated, all needs attended to. Pt is stable - will endorse to oncoming shift.
--- NOTE | 2018-03-25 23:59 | NUR ---
I WAS INFORMED BY STEFANIE, CHARGE NURSE THAT PT STATED THAT HER CELL PHONE WAS MISSING. I ASKED PT WHEN DID SHE NOTICE THAT HER CELL PHONE WAS MISSING. SHE SAID AROUND 3 PM. SHE ALSO STATED THAT SHE NORMALLY ASKED FOR A LAY OUT WORKER FROM STAFF TO CHARGE HER PHONE. HER ROOM WAS CHECKED, HER BED LINEN WAS CHANGED. NO CELL PHONE WAS FOUND. I TOLD HER SINCE THIS HAPPENED PRIOR TO MY SHIFT, I WILL CHECK WITH THE DAY SHIFT RN ABOUT HER CELL PHONE.
[2018-03-26] VITALS (24 sets, daily range): BP systolic 135–175; BP diastolic 73–96; PULSE 60–87; RESP 17–20
[2018-03-26] MEDS: DIPHENHYDRAMINE 50 MG INJ IV PRN ×2 (02:21→08:34)
[2018-03-26] MEDS: INSULIN ASPART [NOVOLOG] 3 ML PEN SC SCH ×4 (07:55→20:35)
[2018-03-26] MEDS: LABETALOL 200 MG TAB PO SCH ×2 (08:11→22:03)
[2018-03-26] MEDS: NIFEdipine (XL) 30 MG TAB PO SCH (08:11)
--- NOTE | 2018-03-26 08:13 | CONS ---
Date/Time of Note Date/Time of Note DATE: 03/26/18 TIME: 08:11 Assessment/Plan Assessment/Plan Hospital Course Impression: 1. Abdominal pain -lipase mildly elevated 03/16 420 2. Diarrhea -O/P negative. C diff negative 3. Mildly elevated lipase with mid abd pain radiating to back 4. Mild generalized small and large bowel wall thickening which per CT 03/01 could represent third spacing. 5. Hemorrhoids per pt 6. Mild hepatomegaly 7. Anemia, likely due to chronic disease -Ferritin high, Iron wnl, TIBC low, B12 wnl, folate wnl, FOB negative -no evidence of GI bleeding 8. End stage renal disease on HD 9. Cardiomegaly with mild lower lung pulmonary edema with small left effusion and mild diffuse ascites 10. Anasarca and ascites -03/15 paracentesis removed 2.9 liters 11. Diabetes 12. Hypertension 13. Elevated alk phos 14. Mildly dilated biliary system with CBD measuring 10mm 15. Chronic liver disease, likely cirrhotic with nodular liver appearance on MRCP MRCP 03/18: 1. Enlarged liver with suggestion of mild liver surface nodularity. Chronic hepatic parenchymal disease is suspected. Diffusely decreased T2 signal intensity of the liver and spleen can represent hemosiderin deposition likely in the setting of secondary hemochromatosis. 2. Large volume ascites. 3. Wall thickening of the gallbladder without gallstones. This likely relates to presence of large volume ascites. 4. Wall thickening of multiple loops of small bowel may also relate to presence of ascites. 5. No intrahepatic biliary ductal dilatation. Mild extrahepatic biliary ductal dilatation measuring up to 10 mm in the mid common bile duct with gradual distal tapering. No filling defects along the course of the common bile duct within the limitations of this exam to represent choledocholithiasis. Plan: Monitor LFTs for downward trend, and WBC Continue with diet as tolerated Continue with PPI PRN pain management I ordered paracentesis today given patient complains of worsening abdominal distension low salt diet outpatient referral to liver specialist at [facility], [facility], or [facility] if possible for management of her likely liver cirrhosis continue supportive care Result Diagram: 03/24/18 0530 03/24/18 0530 Results 24hrs Laboratory Tests Test 03/25/18 08:29 03/25/18 12:44 03/25/18 17:13 03/25/18 21:15 Bedside Glucose 80 82 99 98 Test 03/26/18 07:59 Bedside Glucose 110 Consultation Date/Type/Reason Admit Date/Time Mar 16, 2018 at 14:01 Initial Consult Date 24 HR Interval Summary Free Text/Dictation complains of progressive abdominal distension Exam/Review of Systems Vital Signs Vitals Vital Signs Date Temp Pulse Resp B/P (MAP) Pulse Ox O2 O2 Flow FiO2 Time Delivery Rate 03/26/18 98.3 70 17 139/77 96 07:24 (97) 03/25/18 Room Air 03:58 03/23/18 2.0 08:10 Intake and Output 03/25/18 03/25/18 03/26/18 1515:00 23:00 07:00 IntakeIntake Total 400 ml 420 ml BalanceBalance 400 ml 420 ml Exam Constitutional: alert, oriented, well developed Psych: no complaints, nl mood/affect Head: normocephalic, atraumatic Eyes: nl conjunctiva, EOMI, nl lids ENMT: nl external ears & nose, nl lips & teeth, nl nasal mucosa & septum Neck: supple, non-tender Respiratory: clear to auscultation, normal air movement Cardiovascular: regular rate and rhythm, nl pulses Gastrointestinal: soft, distended Neurological: nl mental status, nl speech, nl strength Medications Medications Current Medications Ondansetron HCl (Zofran Inj) 4 mg Q6H PRN IV NAUSEA AND/OR VOMITING Last administered on 03/16/18at 22:40; Admin Dose 4 MG; Start 03/16/18 at 18:30 Diphenhydramine HCl (Benadryl) 25 mg Q6H PRN IV ITCHING Last administered on 03/26/18 02:21; Admin Dose 25 MG; Start 03/16/18 at 18:30 Clonidine (Catapres) 0.1 mg Q6H PRN PO ELEVATED BLOOD PRESSURE Last administered on 03/18/18 02:50; Admin Dose 0.1 MG; Start 03/16/18 at 20:30 Insulin Aspart (Novolog Insulin Pen) NOVOLOG *MODERATE* ALGORITHM WITH MEALS BEDTIME SC ; Start 03/16/18 at 22:00 Calcitriol (Rocaltrol) 0.25 mcg DAILY PO Last administered on 03/25/18 08:32; Admin Dose 0.25 MCG; Start 03/17/18 at 09:00 Furosemide (Lasix) 40 mg BID PO Last administered on 03/25/18 21:21; Admin Dose 40 MG; Start 03/16/18 at 21:00 Levetiracetam (Keppra) 500 mg BID PO Last administered on 03/25/18 21:21; Admin Dose 500 MG; Start 03/16/18 at 21:00 Nifedipine (Procardia Xl) 30 mg DAILY PO Last administered on 03/25/18 08:33; Admin Dose 30 MG; Start 03/17/18 at 09:00 Pantoprazole (Protonix Tab) 40 mg AC BREAKFAST PO Last administered on 03/25/18 06:47; Admin Dose 40 MG; Start 03/17/18 at 07:00 Quetiapine Fumarate (Seroquel) 300 mg DAILY PO Last administered on 03/25/18 08:32; Admin Dose 300 MG; Start 03/17/18 at 09:00 Sevelamer Carbonate (Renvela) 1.6 gm WITH MEALS PO Last administered on 03/25/18 17:20; Admin Dose 1.6 GM; Start 03/17/18 at 08:00 Miscellaneous Information 1 ea NOTE XX ; Start 03/16/18 at 21:30 Glucose (Glutose) 15 gm Q15M PRN PO DECREASED GLUCOSE; Start 03/16/18 at 21:30 Glucose (Glutose) 22.5 gm Q15M PRN PO DECREASED GLUCOSE; Start 03/16/18 at 21:30 Dextrose (D50w Syringe) 25 ml Q15M PRN IV DECREASED GLUCOSE; Start 03/16/18 at 21:30 Dextrose (D50w Syringe) 50 ml Q15M PRN IV DECREASED GLUCOSE; Start 03/16/18 at 21:30 Glucagon (Glucagen) 1 mg Q15M PRN IM DECREASED GLUCOSE; Start 03/16/18 at 21:30 Glucose (Glutose) 15 gm Q15M PRN BUCCAL DECREASED GLUCOSE; Start 03/16/18 at 21:30 Labetalol HCl (Normodyne) 200 mg BID PO Last administered on 03/25/18 21:20; Admin Dose 200 MG; Start 03/16/18 at 22:00 Loperamide HCl (Imodium Cap) 2 mg Q6H PRN PO diarrhea Last administered on 12/29/18at 01:12; Admin Dose 2 MG; Start 03/17/18 at 03:30 Cholestyramine Resin (Questran) 1 pkt DAILY PO Last administered on 03/25/18 08:31; Admin Dose 1 PKT; Start 03/17/18 at 09:00 Acetaminophen (Tylenol Tab) 650 mg Q6H PRN PO MILD PAIN(1-3)OR ELEVATED TEMP Last administered on 03/19/18 07:55; Admin Dose 650 MG; Start 03/17/18 at 14:00 Hydralazine HCl (Apresoline) 25 mg Q6H PRN PO ELEVATED SYSTOLIC BP Last administered on 03/19/18 18:13; Admin Dose 25 MG; Start 03/18/18 at 05:30 Heparin Sodium (Porcine) (Heparin (1000 Units/ml)) 2,300 unit AFTER DIALYSIS C ATHETER Last administered on 03/24/18 11:47; Admin Dose 2,300 UNIT; Start 03/18/18 at 22:00 Collagenase (Santyl) 1 applic DAILY TOP Last administered on 03/25/18 08:34; Admin Dose 1 APPLIC; Start 03/19/18 at 19:30 Collagenase (Santyl) 1 applic PRN PRN TOP WHEN SOILED Last administered on 03/23/18 21:45; Admin Dose 1 APPLIC; Start 03/19/18 at 19:30 Hydralazine HCl (Apresoline) 10 mg Q6H PRN IV elevated BP Last administered on 03/24/18 16:38; Admin Dose 10 MG; Start 03/19/18 at 19:30 Epoetin Clinton (Epogen (Esrd)) 10,000 units MoWeFr@17 SC Last administered on 03/24/18 17:55; Admin Dose 10,000 UNITS; Start 03/22/18 at 17:00 Multivit/Ca Carb/ B Cmplx/FA/Prenat (Alena-Martin) 1 tab DAILY PO Last administered on 03/25/18 08:32; Admin Dose 1 TAB; Start 03/24/18 at 09:00 Morphine Sulfate (morphine) 10 mg Q4H PRN PO SEVERE PAIN LEVEL 7-10 Last administered on 03/25/18 22:06; Admin Dose 10 MG; Start 03/24/18 at 16:30 SADA TORRES MD Mar 26, 2018 08:13
[2018-03-26] MEDS: SEVELAMER CARBONATE 0.8 GM PKT PO SCH ×3 (08:17→17:32)
[2018-03-26] MEDS: CHOLESTYRAMINE 4 GM PACKET PO SCH (08:17)
[2018-03-26] MEDS: LEVETIRACETAM 500 MG TAB PO SCH ×2 (08:18→20:24)
[2018-03-26] MEDS: PANTOPRAZOLE (EC) 40 MG TAB PO SCH (08:18)
[2018-03-26] MEDS: QUETIAPINE 100 MG TAB PO SCH (08:18)
[2018-03-26] MEDS: MULTIVIT/CA CARB/B CMPLX/FA TAB PO SCH (08:18)
[2018-03-26] MEDS: CALCITRIOL 0.25 MCG CAP PO SCH (08:18)
[2018-03-26] MEDS: FUROSEMIDE 40 MG TAB PO SCH ×2 (08:19→20:25)
[2018-03-26] MEDS: COLLAGENASE 5 GM (UD JAR) TOP SCH (08:19)
[2018-03-26] MEDS: morphine LIQ (10 MG/5 ML) CUP PO PRN ×2 (08:34→20:25)
[2018-03-26] MEDS ORDERED: LIDOCAINE 1% (MPF) 5 ML VIAL ONE (09:30)
--- NOTE | 2018-03-26 09:32 | NUR ---
ULTRASOUND GUIDED PARACENTESIS PERFORMED BY DR STEWARD,1800ML FLUID ASPIRATED AND DISCARDED
--- NOTE | 2018-03-26 10:22 | PN ---
Date/Time of Note Date/Time of Note DATE: 03/26/18 TIME: 10:21 Assessment/Plan VTE Prophylaxis Risk score (from Nsg)>0 risk: 3 SCD applied (from Nsg): Yes Pharmacological prophylaxis: other Lines/Catheters IV Catheter Type (from Nrsg): PERMACATH Urinary Cath still in place: No Assessment/Plan Hospital Course SUBJECTIVE: The patient is stable, no events overnight. OBJECTIVE: VITAL SIGNS: Blood pressure 134/72, respirations 17, pulse 65, temperature 98.9. HEENT: Head is normocephalic. NECK: Supple. HEART: Regular rate. LUNGS: Show diminished breath sounds at the base. ABDOMEN: Soft, nontender to palpation. No rebound or guarding. EXTREMITIES: Negative for clubbing, cyanosis, no edema. DERMATOLOGIC: No rashes. MUSCULOSKELETAL: No joint effusion. NEUROLOGIC: No change in exam. MEDICATIONS: Reviewed. LABORATORY DATA: Has been reviewed. ASSESSMENT AND PLAN: 1. End-stage renal disease. continue HD today 2. Access. The patient has a Petros catheter. Dr. Anguiano to place Perm-A-Cath placement and possible revision of AV fistula. 3. Anemia. Continue to monitor hemoglobin and hematocrit levels. Continue Epogen as needed. 4. Mineral bone disorder, monitor calcium and phosphorous levels, vitamin D, PTH levels are pending. 5. Hyperkalemia, resolving. 6. Volume overload. Continue ultrafiltration dialysis. 7. Abdominal pain secondary to biliary colic. The patient is status post endoscopic retrograde cholangiopancreatography with dilatation of common bile duct and stent placement. Continue to monitor. Follow up with gastroenterology . 8. Encephalopathy, resolved. 9. Ascites, status post paracentesis. 10. Hypertension. Continue current blood pressure regimen. 11. Gastritis. Continue proton pump inhibitor. Result Diagram: 03/24/18 0530 03/24/18 0530 Results 24hrs Laboratory Tests Test 03/25/18 12:44 03/25/18 17:13 03/25/18 21:15 03/26/18 07:59 Bedside Glucose 82 99 98 110 Exam/Review of Systems Vital Signs Vitals Vital Signs Date Temp Pulse Resp B/P (MAP) Pulse Ox O2 O2 Flow FiO2 Time Delivery Rate 03/26/18 68 09:08 03/26/18 98.3 17 139/77 96 07:24 (97) 03/25/18 Room Air 03:58 03/23/18 2.0 08:10 Intake and Output 03/25/18 03/25/18 03/26/18 1414:59 22:59 06:59 IntakeIntake Total 400 ml 420 ml BalanceBalance 400 ml 420 ml Medications Medications Current Medications Ondansetron HCl (Zofran Inj) 4 mg Q6H PRN IV NAUSEA AND/OR VOMITING Last administered on 03/16/18at 22:40; Admin Dose 4 MG; Start 03/16/18 at 18:30 Diphenhydramine HCl (Benadryl) 25 mg Q6H PRN IV ITCHING Last administered on 03/26/18 08:34; Admin Dose 25 MG; Start 03/16/18 at 18:30 Clonidine (Catapres) 0.1 mg Q6H PRN PO ELEVATED BLOOD PRESSURE Last administered on 03/18/18at 02:50; Admin Dose 0.1 MG; Start 03/16/18 at 20:30 Insulin Aspart (Novolog Insulin Pen) NOVOLOG *MODERATE* ALGORITHM WITH MEALS BEDTIME SC ; Start 03/16/18 at 22:00 Calcitriol (Rocaltrol) 0.25 mcg DAILY PO Last administered on 03/26/18 08:18; Admin Dose 0.25 MCG; Start 03/17/18 at 09:00 Furosemide (Lasix) 40 mg BID PO Last administered on 03/26/18 08:19; Admin Dose 40 MG; Start 03/16/18 at 21:00 Levetiracetam (Keppra) 500 mg BID PO Last administered on 03/26/18 08:18; Admin Dose 500 MG; Start 03/16/18 at 21:00 Nifedipine (Procardia Xl) 30 mg DAILY PO Last administered on 03/25/18 08:33; Admin Dose 30 MG; Start 03/17/18 at 09:00 Pantoprazole (Protonix Tab) 40 mg AC BREAKFAST PO Last administered on 03/26/18 08:18; Admin Dose 40 MG; Start 03/17/18 at 07:00 Quetiapine Fumarate (Seroquel) 300 mg DAILY PO Last administered on 03/26/18 08:18; Admin Dose 300 MG; Start 03/17/18 at 09:00 Sevelamer Carbonate (Renvela) 1.6 gm WITH MEALS PO Last administered on 03/26/18 08:17; Admin Dose 1.6 GM; Start 03/17/18 at 08:00 Miscellaneous Information 1 ea NOTE XX ; Start 03/16/18 at 21:30 Glucose (Glutose) 15 gm Q15M PRN PO DECREASED GLUCOSE; Start 03/16/18 at 21:30 Glucose (Glutose) 22.5 gm Q15M PRN PO DECREASED GLUCOSE; Start 03/16/18 at 21:30 Dextrose (D50w Syringe) 25 ml Q15M PRN IV DECREASED GLUCOSE; Start 03/16/18 at 21:30 Dextrose (D50w Syringe) 50 ml Q15M PRN IV DECREASED GLUCOSE; Start 03/16/18 at 21:30 Glucagon (Glucagen) 1 mg Q15M PRN IM DECREASED GLUCOSE; Start 03/16/18 at 21:30 Glucose (Glutose) 15 gm Q15M PRN BUCCAL DECREASED GLUCOSE; Start 03/16/18 at 21:30 Labetalol HCl (Normodyne) 200 mg BID PO Last administered on 03/25/18 21:20; Admin Dose 200 MG; Start 03/16/18 at 22:00 Loperamide HCl (Imodium Cap) 2 mg Q6H PRN PO diarrhea Last administered on 03/20/18at 01:12; Admin Dose 2 MG; Start 03/17/18 at 03:30 Cholestyramine Resin (Questran) 1 pkt DAILY PO Last administered on 03/26/18 08:17; Admin Dose 1 PKT; Start 03/17/18 at 09:00 Acetaminophen (Tylenol Tab) 650 mg Q6H PRN PO MILD PAIN(1-3)OR ELEVATED TEMP Last administered on 03/19/18at 07:55; Admin Dose 650 MG; Start 03/17/18 at 14:00 Hydralazine HCl (Apresoline) 25 mg Q6H PRN PO ELEVATED SYSTOLIC BP Last adminis tered on 03/19/18at 18:13; Admin Dose 25 MG; Start 03/18/18 at 05:30 Heparin Sodium (Porcine) (Heparin (1000 Units/ml)) 2,300 unit AFTER DIALYSIS CATHETER Last administered on 03/24/18 11:47; Admin Dose 2,300 UNIT; Start 03/18/18 at 22:00 Collagenase (Santyl) 1 applic DAILY TOP Last administered on 03/26/18 08:19; Admin Dose 1 APPLIC; Start 03/19/18 at 19:30 Collagenase (Santyl) 1 applic PRN PRN TOP WHEN SOILED Last administered on 03/23/18 21:45; Admin Dose 1 APPLIC; Start 03/19/18 at 19:30 Hydralazine HCl (Apresoline) 10 mg Q6H PRN IV elevated BP Last administered on 03/24/18 16:38; Admin Dose 10 MG; Start 03/19/18 at 19:30 Epoetin Clinton (Epogen (Esrd)) 10,000 units MoWeFr@17 SC Last administered on 03/24/18 17:55; Admin Dose 10,000 UNITS; Start 03/22/18 at 17:00 Multivit/Ca Carb/ B Cmplx/FA/Prenat (Alena-Martin) 1 tab DAILY PO Last administered on 03/26/18 08:18; Admin Dose 1 TAB; Start 03/24/18 at 09:00 Morphine Sulfate (morphine) 10 mg Q4H PRN PO SEVERE PAIN LEVEL 7-10 Last administered on 03/26/18 08:34; Admin Dose 10 MG; Start 03/24/18 at 16:30 ERIC MOLINA DO Mar 26, 2018 10:22
[2018-03-26] MEDS ORDERED: morphine 4 MG/ML VIAL IV STA (12:59)
--- NOTE | 2018-03-26 16:09 | PN ---
Date/Time of Note Date/Time of Note DATE: 03/26/18 TIME: 16:04 Assessment/Plan VTE Prophylaxis Risk score (from Ns)>0 risk: 6 SCD applied (from Ns): Yes Pharmacological prophylaxis: NA/contraindicated Pharm contraindication: other Lines/Catheters IV [facility] Type (from [facility]): PERMACATH Urinary Cath still in place: No Assessment/Plan Hospital Course Patient is undergoing hemodialysis now, awake, alert, tolerates diet without nausea and vomiting. Patient is status post thoracentesis today with removal of 1.8 L of fluid. Assessment/Plan -Abdominal pain status post ERCP with sphincterectomy, removal of stone and stenting by Dr. Webb. -Chronic liver disease, likely cirrhotic. -Anasarca and ascites, s/p paracentesis on 03/15, 03/19, and 03/26. -Hemodialysis dependent end-stage renal disease. Continue hemodialysis per nephrology. Dr. Bledsoe is following in nephrology consultation -Hypertension, continue Procardia and hydralazine as needed. -Diabetes, NovoLog per mild algorithm sliding scale -Seizure disorder, continue Keppra -Gastritis, continue PPI -Anemia of chronic disease, continue Epogen -Depressive disorder with psychosis. Continue Seroquel. Further recommendations based on clinical course. Plan of care discussed with Dr. Smith. Result Diagram: 03/24/18 0530 03/24/18 0530 Results 24hrs Laboratory Tests Test 03/25/18 17:13 03/25/18 21:15 03/26/18 07:59 03/26/18 11:39 Bedside Glucose 99 98 110 95 Exam/Review of Systems Vital Signs Vitals Vital Signs Date Temp Pulse Resp B/P (MAP) Pulse Ox O2 O2 Flow FiO2 Time Delivery Rate 03/26/18 98.4 87 17 168/84 98 15:23 (112) 03/25/18 Room Air 03:58 03/23/18 2.0 08:10 Intake and Output 03/25/18 03/25/18 03/26/18 1515:00 23:00 07:00 IntakeIntake Total 400 ml 420 ml BalanceBalance 400 ml 420 ml Exam Constitutional: alert, oriented Respiratory: clear to auscultation Cardiovascular: regular rate and rhythm Gastrointestinal: soft, distended Musculoskeletal: nl extremities to inspection Extremities: normal pulses Additional Comments Left chest hemodialysis catheter Medications Medications Current Medications Ondansetron HCl (Zofran Inj) 4 mg Q6H PRN IV NAUSEA AND/OR VOMITING Last administered on 03/16/18at 22:40; Admin Dose 4 MG; Start 03/16/18 at 18:30 Diphenhydramine HCl (Benadryl) 25 mg Q6H PRN IV ITCHING Last administered on 03/26/18 08:34; Admin Dose 25 MG; Start 03/16/18 at 18:30 Clonidine (Catapres) 0.1 mg Q6H PRN PO ELEVATED BLOOD PRESSURE Last administered on 03/18/18at 02:50; Admin Dose 0.1 MG; Start 03/16/18 at 20:30 Insulin Aspart (Novolog Insulin Pen) NOVOLOG *MODERATE* ALGORITHM WITH MEALS BEDTIME SC ; Start 03/16/18 at 22:00 Calcitriol (Rocaltrol) 0.25 mcg DAILY PO Last administered on 03/26/18 08:18; Admin Dose 0.25 MCG; Start 03/17/18 at 09:00 Furosemide (Lasix) 40 mg BID PO Last administered on 03/26/18 08:19; Admin Dose 40 MG; Start 03/16/18 at 21:00 Levetiracetam (Keppra) 500 mg BID PO Last administered on 03/26/18 08:18; Admin Dose 500 MG; Start 03/16/18 at 21:00 Nifedipine (Procardia Xl) 30 mg DAILY PO Last administered on 03/25/18 08:33; Admin Dose 30 MG; Start 03/17/18 at 09:00 Pantoprazole (Protonix Tab) 40 mg AC BREAKFAST PO Last administered on 03/26/18 08:18; Admin Dose 40 MG; Start 03/17/18 at 07:00 Quetiapine Fumarate (Seroquel) 300 mg DAILY PO Last administered on 03/26/18 08:18; Admin Dose 300 MG; Start 03/17/18 at 09:00 Sevelamer Carbonate (Renvela) 1.6 gm WITH MEALS PO Last administered on 03/26/18 12:23; Admin Dose 1.6 GM; Start 03/17/18 at 08:00 Miscellaneous Information 1 ea NOTE XX ; Start 03/16/18 at 21:30 Glucose (Glutose) 15 gm Q15M PRN PO DECREASED GLUCOSE; Start 03/16/18 at 21:30 Glucose (Glutose) 22.5 gm Q15M PRN PO DECREASED GLUCOSE; Start 03/16/18 at 21:30 Dextrose (D50w Syringe) 25 ml Q15M PRN IV DECREASED GLUCOSE; Start 03/16/18 at 21:30 Dextrose (D50w Syringe) 50 ml Q15M PRN IV DECREASED GLUCOSE; Start 03/16/18 at 21:30 Glucagon (Glucagen) 1 mg Q15M PRN IM DECREASED GLUCOSE; Start 03/16/18 at 21:30 Glucose (Glutose) 15 gm Q15M PRN BUCCAL DECREASED GLUCOSE; Start 03/16/18 at 21:30 Labetalol HCl (Normodyne) 200 mg BID PO Last administered on 03/25/18 21:20; Admin Dose 200 MG; Start 03/16/18 at 22:00 Loperamide HCl (Imodium Cap) 2 mg Q6H PRN PO diarrhea Last administered on 03/20/18at 01:12; Admin Dose 2 MG; Start 03/17/18 at 03:30 Cholestyramine Resin (Questran) 1 pkt DAILY PO Last administered on 03/26/18 08:17; Admin Dose 1 PKT; Start 03/17/18 at 09:00 Acetaminophen (Tylenol Tab) 650 mg Q6H PRN PO MILD PAIN(1-3)OR ELEVATED TEMP Last administered on 03/19/18 07:55; Admin Dose 650 MG; Start 03/17/18 at 14:00 Hydralazine HCl (Apresoline) 25 mg Q6H PRN PO ELEVATED SYSTOLIC BP Last administered on 03/19/18at 18:13; Admin Dose 25 MG; Start 03/18/18 at 05:30 Heparin Sodium (Porcine) (Heparin (1000 Units/ml)) 2,300 unit AFTER DIALYSIS C ATHETER Last administered on 03/24/18 11:47; Admin Dose 2,300 UNIT; Start 03/18/18 at 22:00 Collagenase (Santyl) 1 applic DAILY TOP Last administered on 03/26/18 08:19; Admin Dose 1 APPLIC; Start 03/19/18 at 19:30 Collagenase (Santyl) 1 applic PRN PRN TOP WHEN SOILED Last administered on 03/23/18 21:45; Admin Dose 1 APPLIC; Start 03/19/18 at 19:30 Hydralazine HCl (Apresoline) 10 mg Q6H PRN IV elevated BP Last administered on 03/24/18 16:38; Admin Dose 10 MG; Start 03/19/18 at 19:30 Epoetin Clinton (Epogen (Esrd)) 10,000 units MoWeFr@17 SC Last administered on 03/24/18 17:55; Admin Dose 10,000 UNITS; Start 03/22/18 at 17:00 Multivit/Ca Carb/ B Cmplx/FA/Prenat (Alena-Martin) 1 tab DAILY PO Last administered on 03/26/18 08:18; Admin Dose 1 TAB; Start 03/24/18 at 09:00 Morphine Sulfate (morphine) 10 mg Q4H PRN PO SEVERE PAIN LEVEL 7-10 Last administered on 03/26/18 08:34; Admin Dose 10 MG; Start 03/24/18 at 16:30 BLAKE MORALES Mar 26, 2018 16:09
--- NOTE | 2018-03-26 16:20 | NUR ---
RN NOTES: Pt has orders to tx to M/S. Room is available - however, pt still getting HD. commercial real estate assistant aware. Will tx after HD.
[2018-03-26] MEDS: HEPARIN 1000 UNITS/ML 10 ML INJ CATHETER SCH (17:29)
[2018-03-26] MEDS: EPOETIN 10000 UNITS/1 ML INJ (ESRD) SC SCH (17:32)
[2018-03-26] MEDS: hydrALAzine 20 MG INJ IV PRN (18:00)
--- NOTE | 2018-03-26 18:40 | NUR ---
RN NOTES: Patient tx to [address] [facility]. Pt is AAOx4, BP elevated - Hydralazine 10 mg IV administered. Endorsed to M/S RN to f/u. S/p HD - 1.8 L removed. Report given to AGUSTO An. Pt states that she lost her phone and can't find it. RN checked sheets and room for phone and was unable to find it. Per vegetable specker RN, furnace charger aware and sent request to [employer]. Wound check done w/ secondary AGUSTO Watts and verified w/ furnace charger. Pt refused photos of heels. All belongings tx w/ patient. Pt stable upon tx.
--- NOTE | 2018-03-26 18:56 | NUR ---
rn notes patient admitted from 5W at 1845. alert, no s/s of acute distress noted. will continue to monitor for remaining shift
[2018-03-27] MEDS: DIPHENHYDRAMINE 50 MG INJ IV PRN ×3 (00:23→19:33)
[2018-03-27] MEDS: morphine LIQ (10 MG/5 ML) CUP PO PRN ×2 (01:16→06:32)
[2018-03-27 01:50] VITALS: BP 141/66; PULSE 70; RESP 18
[2018-03-27] MEDS: PANTOPRAZOLE (EC) 40 MG TAB PO SCH (07:42)
[2018-03-27] MEDS: SEVELAMER CARBONATE 0.8 GM PKT PO SCH ×3 (07:42→18:57)
[2018-03-27] MEDS: INSULIN ASPART [NOVOLOG] 3 ML PEN SC SCH ×4 (07:44→21:00)
[2018-03-27 07:55] VITALS: BP 176/87; PULSE 79; RESP 18
--- NOTE | 2018-03-27 08:18 | NUR ---
1915 Pt received aaox4 and oriented to night shift supervisor nurse and [facility] safety protocol including hourly rounding and an active bed alarm. Pt verbalized understanding. No requests/complaints at this time. 2100 Scheduled medications administered to pt along with pain medication. 0700 No significant changes throughout the night all needs anticipated and met, vital signs stable. Nursing will endorse to morning shift to ensure continuity of care.
[2018-03-27] MEDS: LABETALOL 200 MG TAB PO SCH ×2 (08:35→21:47)
[2018-03-27] MEDS: LEVETIRACETAM 500 MG TAB PO SCH ×2 (08:35→21:46)
[2018-03-27] MEDS: MULTIVIT/CA CARB/B CMPLX/FA TAB PO SCH (08:36)
[2018-03-27] MEDS: BALSAM PERU/CASTOR OIL 60 GM TUBE TOP SCH (08:36)
[2018-03-27] MEDS: FUROSEMIDE 40 MG TAB PO SCH ×2 (08:36→21:46)
[2018-03-27] MEDS: NIFEdipine (XL) 30 MG TAB PO SCH (08:36)
[2018-03-27] MEDS: COLLAGENASE 5 GM (UD JAR) TOP SCH (08:36)
--- NOTE | 2018-03-27 09:48 | PSY ---
Date/Time of Note Date/Time of Note DATE: 03/27/18 TIME: 09:44 Psychiatric Subjective Eval Consent Pt consented to telemedicine: No Subjective Evaluation Patient location: inpatient Chief Complaint: PT BIBA FROM HOME C/O ABD PAIN; RECENT DISCHAGE FROM [facility] INPATIENT History of present illness Patient is a 52year old with diabetes, seizure disorder, renal failure, gastritis and abdominal pain. On a face to face evaluation, patient states she is increasingly anxious, hopeless and helpless. She denies suicidal ideation, and contracted for safety. Discussed risk and benefit of antidepressant and patient verbalized understanding. Patient is currently complaining of severe pain, tearful and difficult to redirect. Hospitalization: no Medical history Problems Medical Problems: (1) Abdominal pain Status: Acute (2) Acute generalized abdominal pain Status: Acute (3) Ascites Status: Acute (4) Ascites Status: Acute (5) Depression Status: Acute (6) Diabetes mellitus type 2 in nonobese Status: Acute (7) Diarrhea Status: Acute (8) End stage renal disease on dialysis Status: Acute (9) Generalized weakness Status: Acute (10) Hyperkalemia Status: Acute (11) Hyperphosphatemia Status: Acute (12) Hypertension Status: Acute (13) Serum lipase elevation Status: Acute (14) Severe hypertension Status: Acute Allergies: Coded Allergies: No Known Allergy (Unverified , 03/16/18) Substance Abuse Substance abuse history: Yes Social History Marital status: other DPA/Conservatorship: No Psychiatric Objective Eval Review of Systems: Review of Systems: Not Applicable Physical Examination: Physical Examination: Not Applicable Appetite: Decreased Energy: Decreased Interest: Decreased Mental Status Examination: Appearance: Poor Hygiene Eye Contact: Fair Behavior: Cooperative Speech: Soft Mood: Anxious Orientation: x4 Insight: Moderate Judgement: Moderate Attention Span: Distractible Laboratory Results Laboratory Tests Test 03/25/18 12:44 03/25/18 17:13 03/25/18 21:15 03/26/18 07:59 Bedside Glucose 82 mg/dL 99 mg/dL 98 mg/dL 110 mg/dL Test 03/26/18 11:39 03/26/18 17:20 03/26/18 20:34 03/27/18 07:43 Bedside Glucose 95 mg/dL 87 mg/dL 121 mg/dL 91 mg/dL Assessment and Plan Assessment/Diagnosis Diagnosis Major Depression, severe recurrent Recommendation/Plan Medication Management Celexa 10mg daily, Buspar 10mg bid, Seroquel 300mg BID Multiple antipsychotics: No Discharge Disposition: Other Legal Status: Voluntary (DOES NOT MEET CRITERIA FOR 5150 HOLD) SANA CROUCH NP Mar 27, 2018 09:48
[2018-03-27] MEDS: CALCITRIOL 0.25 MCG CAP PO SCH (09:58)
[2018-03-27] MEDS: CHOLESTYRAMINE 4 GM PACKET PO SCH (09:59)
[2018-03-27] MEDS: QUETIAPINE 100 MG TAB PO SCH ×2 (09:59→21:46)
--- NOTE | 2018-03-27 10:14 | CONS ---
Date/Time of Note Date/Time of Note DATE: 03/27/18 TIME: 10:13 Consult Date/Type/Reason Admit Date/Time Mar 16, 2018 at 14:01 Initial Consult Date Objective Vital Signs Date Temp Pulse Resp B/P (MAP) Pulse Ox O2 O2 Flow FiO2 Time Delivery Rate 03/27/18 97.7 79 18 176/87 100 Room Air 07:55 (116) 03/23/18 2.0 08:10 Intake and Output 03/26/18 03/26/18 03/27/18 1515:00 23:00 07:00 OutputOutput Total 200 ml 2200 ml BalanceBalance -200 ml -2200 ml Results/Medications Result Diagram: 03/24/18 0503/24/18 0530 Results 24 hrs Laboratory Tests Test 03/26/18 11:39 03/26/18 17:20 03/26/18 20:34 03/27/18 07:43 Bedside Glucose 95 87 121 91 Medications Current Medications Ondansetron HCl (Zofran Inj) 4 mg Q6H PRN IV NAUSEA AND/OR VOMITING Last administered on 03/16/18at 22:40; Admin Dose 4 MG; Start 03/16/18 at 18:30 Diphenhydramine HCl (Benadryl) 25 mg Q6H PRN IV ITCHING Last administered on 03/27/18 07:42; Admin Dose 25 MG; Start 03/16/18 at 18:30 Clonidine (Catapres) 0.1 mg Q6H PRN PO ELEVATED BLOOD PRESSURE Last administered on 03/18/18at 02:50; Admin Dose 0.1 MG; Start 03/16/18 at 20:30 Insulin Aspart (Novolog Insulin Pen) NOVOLOG *MODERATE* ALGORITHM WITH MEALS BEDTIME SC ; Start 03/16/18 at 22:00 Calcitriol (Rocaltrol) 0.25 mcg DAILY PO Last administered on 03/27/18 09:58; Admin Dose 0.25 MCG; Start 03/17/18 at 09:00 Furosemide (Lasix) 40 mg BID PO Last administered on 03/27/18 08:36; Admin Dose 40 MG; Start 03/16/18 at 21:00 Levetiracetam (Keppra) 500 mg BID PO Last administered on 03/27/18 08:35; Admin Dose 500 MG; Start 03/16/18 at 21:00 Nifedipine (Procardia Xl) 30 mg DAILY PO Last administered on 03/27/18 08:36; Admin Dose 30 MG; Start 03/17/18 at 09:00 Pantoprazole (Protonix Tab) 40 mg AC BREAKFAST PO Last administered on 03/27/18 07:42; Admin Dose 40 MG; Start 03/17/18 at 07:00 Quetiapine Fumarate (Seroquel) 300 mg DAILY PO Last administered on 03/27/18 09:59; Admin Dose 300 MG; Start 03/17/18 at 09:00 Sevelamer Carbonate (Renvela) 1.6 gm WITH MEALS PO Last administered on 03/27/18 07:42; Admin Dose 1.6 GM; Start 03/17/18 at 08:00 Miscellaneous Information 1 ea NOTE XX ; Start 03/16/18 at 21:30 Glucose (Glutose) 15 gm Q15M PRN PO DECREASED GLUCOSE; Start 03/16/18 at 21:30 Glucose (Glutose) 22.5 gm Q15M PRN PO DECREASED GLUCOSE; Start 03/16/18 at 21:30 Dextrose (D50w Syringe) 25 ml Q15M PRN IV DECREASED GLUCOSE; Start 03/16/18 at 21:30 Dextrose (D50w Syringe) 50 ml Q15M PRN IV DECREASED GLUCOSE; Start 03/16/18 at 21:30 Glucagon (Glucagen) 1 mg Q15M PRN IM DECREASED GLUCOSE; Start 03/16/18 at 21:30 Glucose (Glutose) 15 gm Q15M PRN BUCCAL DECREASED GLUCOSE; Start 03/16/18 at 21:30 Labetalol HCl (Normodyne) 200 mg BID PO Last administered on 03/27/18 08:35; Admin Dose 200 MG; Start 03/16/18 at 22:00 Loperamide HCl (Imodium Cap) 2 mg Q6H PRN PO diarrhea Last administered on 03/20/18at 01:12; Admin Dose 2 MG; Start 03/17/18 at 03:30 Cholestyramine Resin (Questran) 1 pkt DAILY PO Last administered on 03/27/18 09:59; Admin Dose 1 PKT; Start 03/17/18 at 09:00 Acetaminophen (Tylenol Tab) 650 mg Q6H PRN PO MILD PAIN(1-3)OR ELEVATED TEMP Last administered on 03/19/18 07:55; Admin Dose 650 MG; Start 03/17/18 at 14:00 Hydralazine HCl (Apresoline) 25 mg Q6H PRN PO ELEVATED SYSTOLIC BP Last administered on 03/19/18 18:13; Admin Dose 25 MG; Start 03/18/18 at 05:30 Heparin Sodium (Porcine) (Heparin (1000 Units/ml)) 2,300 unit AFTER DIALYSIS CATHETER Last administered on 03/26/18 17:29; Admin Dose 2,300 UNIT; Start 03/18/18 at 22:00 Collagenase (Santyl) 1 applic DAILY TOP Last administered on 03/26/18 08:19; Admin Dose 1 APPLIC; Start 03/19/18 at 19:30 Collagenase (Santyl) 1 applic PRN PRN TOP WHEN SOILED Last administered on 03/23/18 21:45; Admin Dose 1 APPLIC; Start 03/19/18 at 19:30 Hydralazine HCl (Apresoline) 10 mg Q6H PRN IV elevated BP Last administered on 03/26/18 18:00; Admin Dose 10 MG; Start 03/19/18 at 19:30 Epoetin Clinton (Epogen (Esrd)) 10,000 units MoWeFr@17 SC Last administered on 03/26/18 17:32; Admin Dose 10,000 UNITS; Start 03/22/18 at 17:00 Multivit/Ca Carb/ B Cmplx/FA/Prenat (Alena-Martin) 1 tab DAILY PO Last administered on 03/27/18 08:36; Admin Dose 1 TAB; Start 03/24/18 at 09:00 Morphine Sulfate (morphine) 10 mg Q4H PRN PO SEVERE PAIN LEVEL 7-10 Last administered on 03/27/18 06:32; Admin Dose 10 MG; Start 03/24/18 at 16:30 Quetiapine Fumarate (Seroquel) 300 mg QHS PO ; Start 03/27/18 at 21:00 Citalopram Hydrobromide (Celexa) 20 mg DAILY PO ; Start 03/28/18 at 09:00; Status UNV Buspirone HCl (Buspar) 10 mg BID PO ; Start 03/27/18 at 21:00; Status UNV Assessment/Plan Chief Complaint/Hosp Course SUBJECTIVE: The patient is stable, no events overnight. s/p hd yesterday, tolerated well PE HEENT: Head is normocephalic. NECK: Supple. HEART: Regular rate. LUNGS: Show diminished breath sounds at the base. ABDOMEN: Soft, nontender to palpation. No rebound or guarding. EXTREMITIES: Negative for clubbing, cyanosis, no edema. DERMATOLOGIC: No rashes. MUSCULOSKELETAL: No joint effusion. NEUROLOGIC: No change in exam. MEDICATIONS: Reviewed. LABORATORY DATA: Has been reviewed. ASSESSMENT AND PLAN: 1. End-stage renal disease. next hd poss thursday, adjust meds, watch volume and lytes, access care 2. Access. The patient has a Petros catheter. Dr. Anguiano to place Perm-A-Cath placement and possible revision of AV fistula. 3. Anemia. Continue to monitor hemoglobin and hematocrit levels. Continue Epogen as needed. 4. Mineral bone disorder, monitor calcium and phosphorous levels, vitamin D, PTH levels are pending. 5. Hyperkalemia, resolving. 6. Volume overload. Continue ultrafiltration dialysis. 7. Abdominal pain secondary to biliary colic. The patient is status post endoscopic retrograde cholangiopancreatography with dilatation of common bile duct and stent placement. Continue to monitor. Follow up with gastroenterology. 8. Encephalopathy, resolved. 9. Ascites, status post paracentesis. 10. Hypertension. Continue current blood pressure regimen. 11. Gastritis. Continue proton pump inhibitor. CHRIS JOHNSON MD Mar 27, 2018 10:14
--- NOTE | 2018-03-27 10:43 | NUR ---
Patient alert and oriented x4 and forgetful. Midline intact and heplock. Patient c/o pain in abdomen 10/30. States the Morphine does not work and would like a it in IV instead of oral. Notified MD and waiting for response. PT complains she lost her phone, on belongings list dated 03/16 it shows phone on list. Under notes, there is a note on 03/25 stating patient lost her phone. Contacted tele, charge nurse to look into. Patient and charge nurse aware.
[2018-03-27] MEDS: BUSPIRONE 10 MG TAB PO SCH ×2 (10:49→21:47)
[2018-03-27] MEDS: CITALOPRAM 20 MG TAB PO SCH (10:49)
[2018-03-27] MEDS ORDERED: VITAMIN A & D 5 GM OINT PACKET TOP ONE (10:52)
--- NOTE | 2018-03-27 11:25 | PN ---
Date/Time of Note Date/Time of Note DATE: 03/27/18 TIME: 11:24 Assessment/Plan VTE Prophylaxis Risk score (from Ns)>0 risk: 7 [place] [facility] [place] contraindicated: other Pharmacological prophylaxis: other Pharm contraindication: other Lines/Catheters IV [facility]from [facility] Petros Cath Urinary Cath still in place: No Assessment/Plan Assessment/Plan -Abdominal pain status post ERCP with sphincterectomy, removal of stone and stenting by Dr. Webb. -Chronic liver disease, likely cirrhotic. -Anasarca and ascites, s/p paracentesis on 03/15, 03/19, and 03/26. -Hemodialysis dependent end-stage renal disease. Continue hemodialysis per nephrology. Dr. Bledsoe is following in nephrology consultation -Hypertension, continue Procardia and hydralazine as needed. -Diabetes, NovoLog per mild algorithm sliding scale -Seizure disorder, continue Keppra -Gastritis, continue PPI -Anemia of chronic disease, continue Epogen -Depressive disorder with psychosis. Continue Seroquel. Further recommendations based on clinical course. Plan of care discussed with Dr. Smith. Result Diagram: 03/24/18 0530 03/27/18 1011 Results 24hrs Laboratory Tests Test 03/26/18 11:39 03/26/18 17:20 03/26/18 20:34 03/27/18 07:43 Bedside Glucose 95 87 121 91 Test 03/27/18 10:11 Sodium Level 133 L Potassium Level 4.3 Chloride Level 99 Carbon Dioxide Level 27 Anion Gap 7 Blood Urea Nitrogen 21 H Creatinine 3.74 H Est Glomerular Filtrat 15 L Rate mL/min Glucose Level 93 Calcium Level 8.2 L Total Bilirubin 0.0 L Direct Bilirubin 0.00 Indirect Bilirubin 0.0 Aspartate Amino 18 Transf (AST/SGOT) Alanine < 6 L Aminotransferase (ALT/SG PT) Alkaline Phosphatase 146 H Total Protein 6.2 Albumin 2.8 L Globulin 3.40 H Albumin/Globulin Ratio 0.82 Subjective 24 Hr Interval Summary Free Text/Dictation sp HD-1.5 L out - sp Paracentesis- 1.5 L removed - c/o abdominal pain- gi follows Eyes: no complaints ENT: no complaints Respiratory: no complaints Cardiovascular: no complaints Exam/Review of Systems Vital Signs Vitals Vital Signs Date Temp Pulse Resp B/P (MAP) Pulse Ox O2 O2 Flow FiO2 Time Delivery Rate 03/27/18 97.7 79 18 176/87 100 Room Air 07:55 (116) 03/23/18 2.0 08:10 Intake and Output 03/26/18 03/26/18 03/27/18 1414:59 22:59 06:59 OutputOutput Total 200 ml 2200 ml BalanceBalance -200 ml -2200 ml Medications Medications Current Medications Ondansetron HCl (Zofran Inj) 4 mg Q6H PRN IV NAUSEA AND/OR VOMITING Last administered on 03/16/18 22:40; Admin Dose 4 MG; Start 03/16/18 at 18:30 Diphenhydramine HCl (Benadryl) 25 mg Q6H PRN IV ITCHING Last administered on 03/27/18 07:42; Admin Dose 25 MG; Start 03/16/18 at 18:30 Clonidine (Catapres) 0.1 mg Q6H PRN PO ELEVATED BLOOD PRESSURE Last administered on 03/18/18 02:50; Admin Dose 0.1 MG; Start 03/16/18 at 20:30 Insulin Aspart (Novolog Insulin Pen) NOVOLOG *MODERATE* ALGORITHM WITH MEALS BEDTIME SC ; Start 03/16/18 at 22:00 Calcitriol (Rocaltrol) 0.25 mcg DAILY PO Last administered on 03/27/18 09:58; Admin Dose 0.25 MCG; Start 03/17/18 at 09:00 Furosemide (Lasix) 40 mg BID PO Last administered on 03/27/18 08:36; Admin Dose 40 MG; Start 03/16/18 at 21:00 Levetiracetam (Keppra) 500 mg BID PO Last administered on 03/27/18 08:35; Admin Dose 500 MG; Start 03/16/18 at 21:00 Nifedipine (Procardia Xl) 30 mg DAILY PO Last administered on 03/27/18 08:36; Admin Dose 30 MG; Start 03/17/18 at 09:00 Pantoprazole (Protonix Tab) 40 mg AC BREAKFAST PO Last administered on 03/27/18 07:42; Admin Dose 40 MG; Start 03/17/18 at 07:00 Quetiapine Fumarate (Seroquel) 300 mg DAILY PO Last administered on 03/27/18 09:59; Admin Dose 300 MG; Start 03/17/18 at 09:00 Sevelamer Carbonate (Renvela) 1.6 gm WITH MEALS PO Last administered on 03/27/18 07:42; Admin Dose 1.6 GM; Start 03/17/18 at 08:00 Miscellaneous Information 1 ea NOTE XX ; Start 03/16/18 at 21:30 Glucose (Glutose) 15 gm Q15M PRN PO DECREASED GLUCOSE; Start 03/16/18 at 21:30 Glucose (Glutose) 22.5 gm Q15M PRN PO DECREASED GLUCOSE; Start 03/16/18 at 21:30 Dextrose (D50w Syringe) 25 ml Q15M PRN IV DECREASED GLUCOSE; Start 03/16/18 at 21:30 Dextrose (D50w Syringe) 50 ml Q15M PRN IV DECREASED GLUCOSE; Start 03/16/18 at 21:30 Glucagon (Glucagen) 1 mg Q15M PRN IM DECREASED GLUCOSE; Start 03/16/18 at 21:30 Glucose (Glutose) 15 gm Q15M PRN BUCCAL DECREASED GLUCOSE; Start 03/16/18 at 21:30 Labetalol HCl (Normodyne) 200 mg BID PO Last administered on 03/27/18 08:35; Admin Dose 200 MG; Start 03/16/18 at 22:00 Loperamide HCl (Imodium Cap) 2 mg Q6H PRN PO diarrhea Last administered on 03/20/18at 01:12; Admin Dose 2 MG; Start 03/17/18 at 03:30 Cholestyramine Resin (Questran) 1 pkt DAILY PO Last administered on 03/27/18 09:59; Admin Dose 1 PKT; Start 03/17/18 at 09:00 Acetaminophen (Tylenol Tab) 650 mg Q6H PRN PO MILD PAIN(1-3)OR ELEVATED TEMP Last administered on 03/19/18at 07:55; Admin Dose 650 MG; Start 03/17/18 at 14:00 Hydralazine HCl (Apresoline) 25 mg Q6H PRN PO ELEVATED SYSTOLIC BP Last administered on 03/19/18at 18:13; Admin Dose 25 MG; Start 03/18/18 at 05:30 Heparin Sodium (Porcine) (Heparin (1000 Units/ml)) 2,300 unit AFTER DIALYSIS CATHETER Last administered on 03/26/18 17:29; Admin Dose 2,300 UNIT; Start 03/18/18 at 22:00 Collagenase (Santyl) 1 applic DAILY TOP Last administered on 03/26/18 08:19; Admin Dose 1 APPLIC; Start 03/19/18 at 19:30 Collagenase (Santyl) 1 applic PRN PRN TOP WHEN SOILED Last administered on 03/23/18 21:45; Admin Dose 1 APPLIC; Start 03/19/18 at 19:30 Hydralazine HCl (Apresoline) 10 mg Q6H PRN IV elevated BP Last administered on 03/26/18 18:00; Admin Dose 10 MG; Start 03/19/18 at 19:30 Epoetin Clinton (Epogen (Esrd)) 10,000 units MoWeFr@17 SC Last administered on 03/26/18 17:32; Admin Dose 10,000 UNITS; Start 03/22/18 at 17:00 Multivit/Ca Carb/ B Cmplx/FA/Prenat (Alena-Martin) 1 tab DAILY PO Last administered on 03/27/18 08:36; Admin Dose 1 TAB; Start 03/24/18 at 09:00 Morphine Sulfate (morphine) 10 mg Q4H PRN PO SEVERE PAIN LEVEL 7-10 Last administered on 03/27/18 06:32; Admin Dose 10 MG; Start 03/24/18 at 16:30 Quetiapine Fumarate (Seroquel) 300 mg QHS PO ; Start 03/27/18 at 21:00 Citalopram Hydrobromide (Celexa) 20 mg DAILY PO Last administered on 03/27/18 10:49; Admin Dose 20 MG; Start 03/27/18 at 10:30 Buspirone HCl (Buspar) 10 mg BID PO Last administered on 03/27/18 10:49; Admin Dose 10 MG; Start 03/27/18 at 10:30 CECILE LIVE Mar 27, 2018 11:25
[2018-03-27 14:00] VITALS: BP 139/84; PULSE 74; RESP 17
--- NOTE | 2018-03-27 14:21 | CONS ---
Date/Time of Note Date/Time of Note DATE: 03/27/18 TIME: 14:19 Assessment/Plan Assessment/Plan Hospital Course Impression: 1. Abdominal pain -lipase mildly elevated 03/16 420 2. Diarrhea -O/P negative. C diff negative 3. Mildly elevated lipase with mid abd pain radiating to back 4. Mild generalized small and large bowel wall thickening which per CT 03/01 could represent third spacing. 5. Hemorrhoids per pt 6. Mild hepatomegaly 7. Anemia, likely due to chronic disease -Ferritin high, Iron wnl, TIBC low, B12 wnl, folate wnl, FOB negative -no evidence of GI bleeding 8. End stage renal disease on HD 9. Cardiomegaly with mild lower lung pulmonary edema with small left effusion and mild diffuse ascites 10. Anasarca and ascites -03/15 paracentesis removed 2.9 liters 11. Diabetes 12. Hypertension 13. Elevated alk phos 14. Mildly dilated biliary system with CBD measuring 10mm 15. Chronic liver disease, likely cirrhotic with nodular liver appearance on MRCP MRCP 03/18: 1. Enlarged liver with suggestion of mild liver surface nodularity. Chronic hepatic parenchymal disease is suspected. Diffusely decreased T2 signal intensity of the liver and spleen can represent hemosiderin deposition likely in the setting of secondary hemochromatosis. 2. Large volume ascites. 3. Wall thickening of the gallbladder without gallstones. This likely relates to presence of large volume ascites. 4. Wall thickening of multiple loops of small bowel may also relate to presence of ascites. 5. No intrahepatic biliary ductal dilatation. Mild extrahepatic biliary ductal dilatation measuring up to 10 mm in the mid common bile duct with gradual distal tapering. No filling defects along the course of the common bile duct within the limitations of this exam to represent choledocholithiasis. Plan: Monitor LFTs for downward trend, and WBC Continue with diet as tolerated Continue with PPI PRN pain management PRN paracentesis low salt diet outpatient referral to liver specialist at [facility], [facility], or [facility] if possible for management of her likely liver cirrhosis continue supportive care Result Diagram: 03/24/18 0530 03/27/18 1011 Results 24hrs Laboratory Tests Test 03/26/18 17:20 03/26/18 20:34 03/27/18 07:43 03/27/18 10:11 Bedside Glucose 87 121 91 Sodium Level 133 L Potassium Level 4.3 Chloride Level 99 Carbon Dioxide Level 27 Anion Gap 7 Blood Urea Nitrogen 21 H Creatinine 3.74 H Est Glomerular Filtrat 15 L Rate mL/min Glucose Level 93 Calcium Level 8.2 L Total Bilirubin 0.0 L Direct Bilirubin 0.00 Indirect Bilirubin 0.0 Aspartate Amino 18 Transf (AST/SGOT) Alanine < 6 L Aminotransferase (ALT/SG PT) Alkaline Phosphatase 146 H Total Protein 6.2 Albumin 2.8 L Globulin 3.40 H Albumin/Globulin Ratio 0.82 Test 03/27/18 12:22 Bedside Glucose 83 Consultation Date/Type/Reason Admit Date/Time Mar 16, 2018 at 14:01 Initial Consult Date Type of Consult gastroenterology 24 HR Interval Summary Free Text/Dictation less distended abdomen after paracentesis yesterday Exam/Review of Systems Vital Signs Vitals Vital Signs Date Temp Pulse Resp B/P (MAP) Pulse Ox O2 O2 Flow FiO2 Time Delivery Rate 03/27/18 97.7 79 18 176/87 100 Room Air 07:55 (116) 03/23/18 2.0 08:10 Intake and Output 03/26/18 03/26/18 03/27/18 1515:00 23:00 07:00 OutputOutput Total 200 ml 2200 ml BalanceBalance -200 ml -2200 ml Exam Constitutional: alert, oriented, well developed Psych: no complaints, nl mood/affect Head: normocephalic, atraumatic Eyes: nl conjunctiva, EOMI, nl lids ENMT: nl external ears & nose, nl lips & teeth, nl nasal mucosa & septum Neck: supple, non-tender Respiratory: clear to auscultation, normal air movement Cardiovascular: regular rate and rhythm, nl pulses Gastrointestinal: soft, non-tender, ascites Medications Medications Current Medications Ondansetron HCl (Zofran Inj) 4 mg Q6H PRN IV NAUSEA AND/OR VOMITING Last administered on 03/16/18at 22:40; Admin Dose 4 MG; Start 03/16/18 at 18:30 Diphenhydramine HCl (Benadryl) 25 mg Q6H PRN IV ITCHING Last administered on 03/27/18at 07:42; Admin Dose 25 MG; Start 03/16/18 at 18:30 Clonidine (Catapres) 0.1 mg Q6H PRN PO ELEVATED BLOOD PRESSURE Last administer ed on 03/18/18at 02:50; Admin Dose 0.1 MG; Start 03/16/18 at 20:30 Insulin Aspart (Novolog Insulin Pen) NOVOLOG *MODERATE* ALGORITHM WITH MEALS BEDTIME SC ; Start 03/16/18 at 22:00 Calcitriol (Rocaltrol) 0.25 mcg DAILY PO Last administered on 03/27/18 09:58; Admin Dose 0.25 MCG; Start 03/17/18 at 09:00 Furosemide (Lasix) 40 mg BID PO Last administered on 03/27/18 08:36; Admin Dose 40 MG; Start 03/16/18 at 21:00 Levetiracetam (Keppra) 500 mg BID PO Last administered on 03/27/18 08:35; Admin Dose 500 MG; Start 03/16/18 at 21:00 Nifedipine (Procardia Xl) 30 mg DAILY PO Last administered on 03/27/18 08:36; Admin Dose 30 MG; Start 03/17/18 at 09:00 Pantoprazole (Protonix Tab) 40 mg AC BREAKFAST PO Last administered on 03/27/18 07:42; Admin Dose 40 MG; Start 03/17/18 at 07:00 Quetiapine Fumarate (Seroquel) 300 mg DAILY PO Last administered on 03/27/18 09:59; Admin Dose 300 MG; Start 03/17/18 at 09:00 Sevelamer Carbonate (Renvela) 1.6 gm WITH MEALS PO Last administered on 12:26; Admin Dose 1.6 GM; Start 03/17/18 at 08:00 Miscellaneous Information 1 ea NOTE XX ; Start 03/16/18 at 21:30 Glucose (Glutose) 15 gm Q15M PRN PO DECREASED GLUCOSE; Start 03/16/18 at 21:30 Glucose (Glutose) 22.5 gm Q15M PRN PO DECREASED GLUCOSE; Start 03/16/18 at 21:30 Dextrose (D50w Syringe) 25 ml Q15M PRN IV DECREASED GLUCOSE; Start 03/16/18 at 21:30 Dextrose (D50w Syringe) 50 ml Q15M PRN IV DECREASED GLUCOSE; Start 03/16/18 at 21:30 Glucagon (Glucagen) 1 mg Q15M PRN IM DECREASED GLUCOSE; Start 03/16/18 at 21:30 Glucose (Glutose) 15 gm Q15M PRN BUCCAL DECREASED GLUCOSE; Start 03/16/18 at 21:30 Labetalol HCl (Normodyne) 200 mg BID PO Last administered on 03/27/18 08:35; Admin Dose 200 MG; Start 03/16/18 at 22:00 Loperamide HCl (Imodium Cap) 2 mg Q6H PRN PO diarrhea Last administered on 03/20/18 01:12; Admin Dose 2 MG; Start 03/17/18 at 03:30 Cholestyramine Resin (Questran) 1 pkt DAILY PO Last administered on 03/27/18 09:59; Admin Dose 1 PKT; Start 03/17/18 at 09:00 Acetaminophen (Tylenol Tab) 650 mg Q6H PRN PO MILD PAIN(1-3)OR ELEVATED TEMP Last administered on 03/19/18 07:55; Admin Dose 650 MG; Start 03/17/18 at 14:00 Hydralazine HCl (Apresoline) 25 mg Q6H PRN PO ELEVATED SYSTOLIC BP Last administered on 03/19/18 18:13; Admin Dose 25 MG; Start 03/18/18 at 05:30 Heparin Sodium (Porcine) (Heparin (1000 Units/ml)) 2,300 unit AFTER DIALYSIS CATHETER Last administered on 03/26/18 17:29; Admin Dose 2,300 UNIT; Start 03/18/18 at 22:00 Collagenase (Santyl) 1 applic DAILY TOP Last administered on 03/26/18 08:19; Admin Dose 1 APPLIC; Start 03/19/18 at 19:30 Collagenase (Santyl) 1 applic PRN PRN TOP WHEN SOILED Last administered on 21:45; Admin Dose 1 APPLIC; Start 03/19/18 at 19:30 Hydralazine HCl (Apresoline) 10 mg Q6H PRN IV elevated BP Last administered on 03/26/18 18:00; Admin Dose 10 MG; Start 03/19/18 at 19:30 Epoetin Clinton (Epogen (Esrd)) 10,000 units MoWeFr@17 SC Last administered on 03/26/18 17:32; Admin Dose 10,000 UNITS; Start 03/22/18 at 17:00 Multivit/Ca Carb/ B Cmplx/FA/Prenat (Alena-Martin) 1 tab DAILY PO Last administered on 03/27/18at 08:36; Admin Dose 1 TAB; Start 03/24/18 at 09:00 Morphine Sulfate (morphine) 10 mg Q4H PRN PO SEVERE PAIN LEVEL 7-10 Last administered on 03/27/18at 06:32; Admin Dose 10 MG; Start 03/24/18 at 16:30 Quetiapine Fumarate (Seroquel) 300 mg QHS PO ; Start 03/27/18 at 21:00 Citalopram Hydrobromide (Celexa) 20 mg DAILY PO Last administered on 03/27/18at 10:49; Admin Dose 20 MG; Start 03/27/18 at 10:30 Buspirone HCl (Buspar) 10 mg BID PO Last administered on 03/27/18at 10:49; Admin Dose 10 MG; Start 03/27/18 at 10:30 SADA TORRES MD Mar 27, 2018 14:21
--- NOTE | 2018-03-27 18:23 | NUR ---
Patient being transferred to U Room 5539. Report given to Natty, Charge Nurse. Natty aware that patient has been sleeping since bed bath and has not eaten dinner or have her blood sugar checked. Novolog pen and dinner tray to be sent up with patient. Also, Natty aware that patient has been complaining that she lost her phone on 5[facility] tele on 03/25/18. Spoke to tele charge nurse today and she stated she will look into into. Patient stable, no signs of distress, shortness of breath, pain, or itchiness. All belongings sent with patient except for phone which was lost on tele unit per patient and note dated 03/25/18.
[2018-03-27 18:53] VITALS: BP 107/65; PULSE 62; RESP 18
--- NOTE | 2018-03-27 19:02 | NUR ---
Transfer note/EOSS: Received pt. in stable condition. VSS taken. pattern grader supervisor received report from AGUSTO Gregorio. Pictures not taken, will endorse to next shift along with belongings. Pt. oriented to room, call light within reach, encouraged to call for assistance. Will endorse care to oncoming nurse.
[2018-03-27 20:00] VITALS: BP 111/68; PULSE 67; RESP 18
[2018-03-28] MEDS: DIPHENHYDRAMINE 50 MG INJ IV PRN ×3 (01:30→18:14)
[2018-03-28 03:10] VITALS: BP 136/74; PULSE 77; RESP 18
--- NOTE | 2018-03-28 05:52 | NUR ---
EOSS Patient alert, oriented forgetful at times. Skin assessment done taken picture witness by Meg LIZ. Had BM sent stool to lab. Assisted to bathroom, ambulate but needs supervision. Vital sign stable no respiratory distress, BS stable. All needs attended, call light is within reach.
[2018-03-28] MEDS: PANTOPRAZOLE (EC) 40 MG TAB PO SCH (07:15)
[2018-03-28 07:42] VITALS: BP 141/72; PULSE 79; RESP 18
[2018-03-28] MEDS ORDERED: VITAMIN A & D 5 GM OINT PACKET TOP ONE (07:58)
[2018-03-28] MEDS: INSULIN ASPART [NOVOLOG] 3 ML PEN SC SCH ×4 (08:00→20:11)
[2018-03-28] MEDS: CHOLESTYRAMINE 4 GM PACKET PO SCH (08:25)
[2018-03-28] MEDS: NIFEdipine (XL) 30 MG TAB PO SCH (08:26)
[2018-03-28] MEDS: LABETALOL 200 MG TAB PO SCH ×2 (08:26→20:11)
[2018-03-28] MEDS: FUROSEMIDE 40 MG TAB PO SCH ×2 (08:27→20:10)
[2018-03-28] MEDS: LEVETIRACETAM 500 MG TAB PO SCH ×2 (08:27→20:09)
[2018-03-28] MEDS: CITALOPRAM 20 MG TAB PO SCH (08:27)
[2018-03-28] MEDS: COLLAGENASE 5 GM (UD JAR) TOP SCH (09:00)
[2018-03-28] MEDS: MULTIVIT/CA CARB/B CMPLX/FA TAB PO SCH (09:00)
[2018-03-28] MEDS: CALCITRIOL 0.25 MCG CAP PO SCH (09:00)
[2018-03-28] MEDS: QUETIAPINE 100 MG TAB PO SCH ×2 (09:00→20:10)
[2018-03-28] MEDS: BALSAM PERU/CASTOR OIL 60 GM TUBE TOP SCH (09:00)
[2018-03-28] MEDS: SEVELAMER CARBONATE 0.8 GM PKT PO SCH ×3 (10:14→17:14)
[2018-03-28] MEDS: BUSPIRONE 10 MG TAB PO SCH ×2 (10:14→20:09)
--- NOTE | 2018-03-28 10:42 | CONS ---
Date/Time of Note Date/Time of Note DATE: 03/28/18 TIME: 10:40 Assessment/Plan Assessment/Plan Hospital Course Impression: 1. Abdominal pain: improving 2. Diarrhea: improving, O/P negative. C diff negative 3. Mildly elevated lipase with mid abd pain radiating to back 4. Mild generalized small and large bowel wall thickening which per CT 03/01 could represent third spacing. 5. Hemorrhoids per pt 6. Mild hepatomegaly 7. Anemia, likely due to chronic disease -Ferritin high, Iron wnl, TIBC low, B12 wnl, folate wnl, FOB negative -no evidence of GI bleeding 8. End stage renal disease on HD 9. Cardiomegaly with mild lower lung pulmonary edema with small left effusion and mild diffuse ascites 10. Anasarca and ascites -03/15 paracentesis removed 2.9 liters 11. Diabetes 12. Hypertension 13. Elevated alk phos 14. Mildly dilated biliary system with CBD measuring 10mm 15. Chronic liver disease, likely cirrhotic with nodular liver appearance on MRCP MRCP 03/18: 1. Enlarged liver with suggestion of mild liver surface nodularity. Chronic hepatic parenchymal disease is suspected. Diffusely decreased T2 signal intensity of the liver and spleen can represent hemosiderin deposition likely in the setting of secondary hemochromatosis. 2. Large volume ascites. 3. Wall thickening of the gallbladder without gallstones. This likely relates to presence of large volume ascites. 4. Wall thickening of multiple loops of small bowel may also relate to presence of ascites. 5. No intrahepatic biliary ductal dilatation. Mild extrahepatic biliary ductal dilatation measuring up to 10 mm in the mid common bile duct with gradual distal tapering. No filling defects along the course of the common bile duct within the limitations of this exam to represent choledocholithiasis. Plan: Monitor LFTs for downward trend, and WBC Continue with diet as tolerated Continue with PPI PRN pain management PRN paracentesis low salt diet outpatient referral to liver specialist at [facility], [facility], or [facility] if possible for management of her likely liver cirrhosis continue supportive care Dr. Webb to take over GI care of this patient tomorrow Result Diagram: 03/24/18 0530 03/27/18 1011 Results 24hrs Laboratory Tests Test 03/27/18 12:22 03/27/18 18:54 03/27/18 21:50 03/28/18 01:00 Bedside Glucose 83 110 100 Stool Occult Blood NEGATIVE Test 03/28/18 08:17 Bedside Glucose 99 Consultation Date/Type/Reason Admit Date/Time Mar 16, 2018 at 14:01 Initial Consult Date Type of Consult gastroenterology 24 HR Interval Summary Free Text/Dictation abd less distended, tolerating po, no n/v Exam/Review of Systems Vital Signs Vitals Vital Signs Date Temp Pulse Resp B/P (MAP) Pulse Ox O2 O2 Flow FiO2 Time Delivery Rate 03/28/18 98.3 79 18 141/72 95 07:42 (95) 03/27/18 Room Air 18:53 Intake and Output 03/27/18 03/27/18 03/28/18 1515:00 23:00 07:00 IntakeIntake Total 760 ml BalanceBalance 760 ml Exam Constitutional: alert, oriented, well developed Psych: no complaints, nl mood/affect Head: normocephalic, atraumatic Eyes: nl conjunctiva, EOMI, nl lids ENMT: nl external ears & nose, nl lips & teeth, nl nasal mucosa & septum Neck: supple, non-tender Respiratory: clear to auscultation, normal air movement Cardiovascular: regular rate and rhythm, nl pulses Gastrointestinal: soft, non-tender, bowel sounds Medications Medications Current Medications Ondansetron HCl (Zofran Inj) 4 mg Q6H PRN IV NAUSEA AND/OR VOMITING Last administered on 03/16/18at 22:40; Admin Dose 4 MG; Start 03/16/18 at 18:30 Diphenhydramine HCl (Benadryl) 25 mg Q6H PRN IV ITCHING Last administered on 03/28/18at 07:25; Admin Dose 25 MG; Start 03/16/18 at 18:30 Clonidine (Catapres) 0.1 mg Q6H PRN PO ELEVATED BLOOD PRESSURE Last administered on 03/18/18at 02:50; Admin Dose 0.1 MG; Start 03/16/18 at 20:30 Insulin Aspart (Novolog Insulin Pen) NOVOLOG *MODERATE* ALGORITHM WITH MEALS BEDTIME SC ; Start 03/16/18 at 22:00 Calcitriol (Rocaltrol) 0.25 mcg DAILY PO Last administered on 03/28/18at 09:00; Admin Dose 0.25 MCG; Start 03/17/18 at 09:00 Furosemide (Lasix) 40 mg BID PO Last administered on 03/28/18 08:27; Admin Dose 40 MG; Start 03/16/18 at 21:00 Levetiracetam (Keppra) 500 mg BID PO Last administered on 03/28/18 08:27; Admin Dose 500 MG; Start 03/16/18 at 21:00 Nifedipine (Procardia Xl) 30 mg DAILY PO Last administered on 03/28/18 08:26; Admin Dose 30 MG; Start 03/17/18 at 09:00 Pantoprazole (Protonix Tab) 40 mg AC BREAKFAST PO Last administered on 03/28/18 07:15; Admin Dose 40 MG; Start 03/17/18 at 07:00 Quetiapine Fumarate (Seroquel) 300 mg DAILY PO Last administered on 03/28/18 09:00; Admin Dose 300 MG; Start 03/17/18 at 09:00 Sevelamer Carbonate (Renvela) 1.6 gm WITH MEALS PO Last administered on 03/28/18 10:14; Admin Dose 1.6 GM; Start 03/17/18 at 08:00 Miscellaneous Information 1 ea NOTE XX ; Start 03/16/18 at 21:30 Glucose (Glutose) 15 gm Q15M PRN PO DECREASED GLUCOSE; Start 03/16/18 at 21:30 Glucose (Glutose) 22.5 gm Q15M PRN PO DECREASED GLUCOSE; Start 03/16/18 at 21:30 Dextrose (D50w Syringe) 25 ml Q15M PRN IV DECREASED GLUCOSE; Start 03/16/18 at 21:30 Dextrose (D50w Syringe) 50 ml Q15M PRN IV DECREASED GLUCOSE; Start 03/16/18 at 21:30 Glucagon (Glucagen) 1 mg Q15M PRN IM DECREASED GLUCOSE; Start 03/16/18 at 21:30 Glucose (Glutose) 15 gm Q15M PRN BUCCAL DECREASED GLUCOSE; Start 03/16/18 at 21:30 Labetalol HCl (Normodyne) 200 mg BID PO Last administered on 03/28/18 08:26; Admin Dose 200 MG; Start 03/16/18 at 22:00 Loperamide HCl (Imodium Cap) 2 mg Q6H PRN PO diarrhea Last administered on 12/29/18at 01:12; Admin Dose 2 MG; Start 03/17/18 at 03:30 Cholestyramine Resin (Questran) 1 pkt DAILY PO Last administered on 03/28/18 08:25; Admin Dose 1 PKT; Start 03/17/18 at 09:00 Acetaminophen (Tylenol Tab) 650 mg Q6H PRN PO MILD PAIN(1-3)OR ELEVATED TEMP Last administered on 03/19/18at 07:55; Admin Dose 650 MG; Start 03/17/18 at 14:00 Hydralazine HCl (Apresoline) 25 mg Q6H PRN PO ELEVATED SYSTOLIC BP Last a dministered on 03/19/18 18:13; Admin Dose 25 MG; Start 03/18/18 at 05:30 Heparin Sodium (Porcine) (Heparin (1000 Units/ml)) 2,300 unit AFTER DIALYSIS CATHETER Last administered on 03/26/18 17:29; Admin Dose 2,300 UNIT; Start 03/18/18 at 22:00 Collagenase (Santyl) 1 applic DAILY TOP Last administered on 03/26/18 08:19; Admin Dose 1 APPLIC; Start 03/19/18 at 19:30 Collagenase (Santyl) 1 applic PRN PRN TOP WHEN SOILED Last administered on 03/23/18 21:45; Admin Dose 1 APPLIC; Start 03/19/18 at 19:30 Hydralazine HCl (Apresoline) 10 mg Q6H PRN IV elevated BP Last administered on 03/26/18 18:00; Admin Dose 10 MG; Start 03/19/18 at 19:30 Epoetin Clinton (Epogen (Esrd)) 10,000 units MoWeFr@17 SC Last administered on 03/26/18 17:32; Admin Dose 10,000 UNITS; Start 03/22/18 at 17:00 Multivit/Ca Carb/ B Cmplx/FA/Prenat (Alena-Martin) 1 tab DAILY PO Last administered on 03/27/18 08:36; Admin Dose 1 TAB; Start 03/24/18 at 09:00 Morphine Sulfate (morphine) 10 mg Q4H PRN PO SEVERE PAIN LEVEL 7-10 Last administered on 03/27/18 06:32; Admin Dose 10 MG; Start 03/24/18 at 16:30 Quetiapine Fumarate (Seroquel) 300 mg QHS PO Last administered on 03/27/18at 21:46; Admin Dose 300 MG; Start 03/27/18 at 21:00 Citalopram Hydrobromide (Celexa) 20 mg DAILY PO Last administered on 03/28/18at 08:27; Admin Dose 20 MG; Start 03/27/18 at 10:30 Buspirone HCl (Buspar) 10 mg BID PO Last administered on 03/28/18at 10:14; Admin Dose 10 MG; Start 03/27/18 at 10:30 SADA TORRES MD Mar 28, 2018 10:42
--- NOTE | 2018-03-28 12:43 | PN ---
Date/Time of Note Date/Time of Note DATE: 03/28/18 TIME: 12:42 Assessment/Plan VTE Prophylaxis Risk score (from Ns)>0 risk: 6 SCD applied (from Ns): Yes SCD contraindicated: other Pharmacological prophylaxis: other Lines/Catheters [facility] permacath Central line still needed: Yes Urinary Cath still in place: No Assessment/Plan Assessment/Plan -Acute Hyperkalemia- per nephro -Abdominal pain status post ERCP with sphincterectomy, removal of stone and stenting by Dr. Webb. -Chronic liver disease, likely cirrhotic. -Anasarca and ascites, s/p paracentesis on 03/15, 03/19, and 03/26. -Hemodialysis dependent end-stage renal disease. Continue hemodialysis per nephrology. Dr. Bledsoe is following in nephrology consultation -Hypertension, continue Procardia and hydralazine as needed. -Diabetes, NovoLog per mild algorithm sliding scale -Seizure disorder, continue Keppra -Gastritis, continue PPI -Anemia of chronic disease, continue Epogen -Depressive disorder with psychosis. Continue Seroquel. Further recommendations based on clinical course. Plan of care discussed with Dr. Smith. Result Diagram: 03/28/18 1110 03/28/18 1109 Results 24hrs Laboratory Tests Test 03/27/18 18:54 03/27/18 21:50 03/28/18 01:00 03/28/18 08:17 Bedside Glucose 110 100 99 Stool Occult Blood NEGATIVE Test 03/28/18 11:09 03/28/18 11:10 Sodium Level 134 L Potassium Level 5.4 H Chloride Level 100 Carbon Dioxide Level 23 Anion Gap 11 Blood Urea Nitrogen 32 #H Creatinine 4.61 H Est Glomerular Filtrat 12 L Rate mL/min Glucose Level 84 Calcium Level 8.5 White Blood Count 7.3 # Red Blood Count 3.75 L Hemoglobin 9.3 L Hematocrit 29.9 L Mean Corpuscular Volume 79.7 L Mean Corpuscular 24.8 L Hemoglobin Mean Corpuscular 31.1 L Hemoglobin Concent Red Cell Distribution 18.2 H Width Platelet Count 238 Mean Platelet Volume 9.2 Immature Granulocytes % 0.300 Neutrophils % 72.5 Lymphocytes % 14.5 L Monocytes % 8.2 Eosinophils % 4.0 Basophils % 0.5 Nucleated Red Blood 0.0 Cells % Immature Granulocytes # 0.020 Neutrophils # 5.3 Lymphocytes # 1.1 Monocytes # 0.6 Eosinophils # 0.3 Basophils # 0.0 Nucleated Red Blood 0.0 Cells # Exam/Review of Systems Vital Signs Vitals Vital Signs Date Temp Pulse Resp B/P (MAP) Pulse Ox O2 O2 Flow FiO2 Time Delivery Rate 03/28/18 98.3 79 18 141/72 95 07:42 (95) 03/27/18 Room Air 18:53 Intake and Output 03/27/18 03/27/18 03/28/18 1515:00 23:00 07:00 IntakeIntake Total 760 ml BalanceBalance 760 ml Medications Medications Current Medications Ondansetron HCl (Zofran Inj) 4 mg Q6H PRN IV NAUSEA AND/OR VOMITING Last administered on 03/16/18at 22:40; Admin Dose 4 MG; Start 03/16/18 at 18:30 Diphenhydramine HCl (Benadryl) 25 mg Q6H PRN IV ITCHING Last administered on 03/28/18 07:25; Admin Dose 25 MG; Start 03/16/18 at 18:30 Clonidine (Catapres) 0.1 mg Q6H PRN PO ELEVATED BLOOD PRESSURE Last administered on 03/18/18 02:50; Admin Dose 0.1 MG; Start 03/16/18 at 20:30 Insulin Aspart (Novolog Insulin Pen) NOVOLOG *MODERATE* ALGORITHM WITH MEALS BEDTIME SC ; Start 03/16/18 at 22:00 Calcitriol (Rocaltrol) 0.25 mcg DAILY PO Last administered on 03/28/18 09:00; Admin Dose 0.25 MCG; Start 03/17/18 at 09:00 Furosemide (Lasix) 40 mg BID PO Last administered on 03/28/18 08:27; Admin Dose 40 MG; Start 03/16/18 at 21:00 Levetiracetam (Keppra) 500 mg BID PO Last administered on 03/28/18 08:27; Admin Dose 500 MG; Start 03/16/18 at 21:00 Nifedipine (Procardia Xl) 30 mg DAILY PO Last administered on 03/28/18 08:26; Admin Dose 30 MG; Start 03/17/18 at 09:00 Pantoprazole (Protonix Tab) 40 mg AC BREAKFAST PO Last administered on 03/28/18 07:15; Admin Dose 40 MG; Start 03/17/18 at 07:00 Quetiapine Fumarate (Seroquel) 300 mg DAILY PO Last administered on 03/28/18 09:00; Admin Dose 300 MG; Start 03/17/18 at 09:00 Sevelamer Carbonate (Renvela) 1.6 gm WITH MEALS PO Last administered on 03/28/18 10:14; Admin Dose 1.6 GM; Start 03/17/18 at 08:00 Miscellaneous Information 1 ea NOTE XX ; Start 03/16/18 at 21:30 Glucose (Glutose) 15 gm Q15M PRN PO DECREASED GLUCOSE; Start 03/16/18 at 21:30 Glucose (Glutose) 22.5 gm Q15M PRN PO DECREASED GLUCOSE; Start 03/16/18 at 21:30 Dextrose (D50w Syringe) 25 ml Q15M PRN IV DECREASED GLUCOSE; Start 03/16/18 at 21:30 Dextrose (D50w Syringe) 50 ml Q15M PRN IV DECREASED GLUCOSE; Start 03/16/18 at 21:30 Glucagon (Glucagen) 1 mg Q15M PRN IM DECREASED GLUCOSE; Start 03/16/18 at 21:30 Glucose (Glutose) 15 gm Q15M PRN BUCCAL DECREASED GLUCOSE; Start 03/16/18 at 21:30 Labetalol HCl (Normodyne) 200 mg BID PO Last administered on 03/28/18 08:26; Admin Dose 200 MG; Start 03/16/18 at 22:00 Loperamide HCl (Imodium Cap) 2 mg Q6H PRN PO diarrhea Last administered on 03/20/18at 01:12; Admin Dose 2 MG; Start 03/17/18 at 03:30 Cholestyramine Resin (Questran) 1 pkt DAILY PO Last administered on 03/28/18 08:25; Admin Dose 1 PKT; Start 03/17/18 at 09:00 Acetaminophen (Tylenol Tab) 650 mg Q6H PRN PO MILD PAIN(1-3)OR ELEVATED TEMP Last administered on 03/19/18at 07:55; Admin Dose 650 MG; Start 03/17/18 at 14:00 Hydralazine HCl (Apresoline) 25 mg Q6H PRN PO ELEVATED SYSTOLIC BP Last administered on 03/19/18 18:13; Admin Dose 25 MG; Start 03/18/18 at 05:30 Heparin Sodium (Porcine) (Heparin (1000 Units/ml)) 2,300 unit AFTER DIALYSIS CATHETER Last administered on 03/26/18 17:29; Admin Dose 2,300 UNIT; Start 03/18/18 at 22:00 Collagenase (Santyl) 1 applic DAILY TOP Last administered on 03/26/18 08:19; Admin Dose 1 APPLIC; Start 03/19/18 at 19:30 Collagenase (Santyl) 1 applic PRN PRN TOP WHEN SOILED Last administered on 03/23/18 21:45; Admin Dose 1 APPLIC; Start 03/19/18 at 19:30 Hydralazine HCl (Apresoline) 10 mg Q6H PRN IV elevated BP Last administered on 03/26/18 18:00; Admin Dose 10 MG; Start 03/19/18 at 19:30 Epoetin Clinton (Epogen (Esrd)) 10,000 units MoWeFr@17 SC Last administered on 03/26/18 17:32; Admin Dose 10,000 UNITS; Start 03/22/18 at 17:00 Multivit/Ca Carb/ B Cmplx/FA/Prenat (Alena-Martin) 1 tab DAILY PO Last administered on 03/27/18 08:36; Admin Dose 1 TAB; Start 03/24/18 at 09:00 Morphine Sulfate (morphine) 10 mg Q4H PRN PO SEVERE PAIN LEVEL 7-10 Last administered on 03/27/18 06:32; Admin Dose 10 MG; Start 03/24/18 at 16:30 Quetiapine Fumarate (Seroquel) 300 mg QHS PO Last administered on 03/27/18 21:46; Admin Dose 300 MG; Start 03/27/18 at 21:00 Citalopram Hydrobromide (Celexa) 20 mg DAILY PO Last administered on 03/28/18 08:27; Admin Dose 20 MG; Start 03/27/18 at 10:30 Buspirone HCl (Buspar) 10 mg BID PO Last administered on 03/28/18 10:14; Admin Dose 10 MG; Start 03/27/18 at 10:30 CECILE LIVE Mar 28, 2018 12:43
[2018-03-28 14:18] VITALS: BP 140/71; PULSE 78; RESP 16
[2018-03-28] MEDS: morphine LIQ (10 MG/5 ML) CUP PO PRN (18:15)
[2018-03-28 20:00] VITALS: BP 128/61; PULSE 75; RESP 16
[2018-03-29] VITALS (17 sets, daily range): BP systolic 91–171; BP diastolic 45–89; PULSE 68–77; RESP 16–18
--- NOTE | 2018-03-29 05:55 | NUR ---
re: shift note patient is alert and oriented, forgetful at times, reoriented, vss, no signs of distress noted. wound care done this AM. remains free from injury and falls.
[2018-03-29] MEDS: PANTOPRAZOLE (EC) 40 MG TAB PO SCH (06:40)
--- NOTE | 2018-03-29 07:14 | PN ---
Date/Time of Note Date/Time of Note DATE: 03/29/18 TIME: 07:13 Assessment/Plan VTE Prophylaxis Risk score (from Nsg)>0 risk: 4 SCD applied (from Nsg): Yes SCD contraindicated: low risk/ambulating Pharmacological prophylaxis: NA/contraindicated Pharm contraindication: liver dx Lines/Catheters IV [facility] (from [facility]): jericho cath Urinary Cath still in place: No Assessment/Plan Hospital Course 52 yo female with ESRD and diarrhea left AMA 03/16 and returned with abdominal pain. 1. Abdominal pain -lipase mildly elevated 03/16 420 2. Diarrhea -O/P negative. C diff negative 3. Mildly elevated lipase with mid abd pain radiating to back -resolved 4. Mild generalized small and large bowel wall thickening which per CT 03/01 could represent third spacing. 5. Hemorrhoids per pt 6. Mild hepatomegaly 7. Anemia, likely due to chronic disease -Ferritin high, Iron wnl, TIBC low, B12 wnl, folate wnl, FOB negative -no evidence of GI bleeding 8. End stage renal disease on HD 9. Cardiomegaly with mild lower lung pulmonary edema with small left effusion and mild diffuse ascites 10. Anasarca and ascites -03/26 1/8 liters removed 11. Diabetes 12. Hypertension 13. Elevated alk phos 14. Mildly dilated biliary system with CBD measuring 10mm 15. Chronic liver disease MRCP 03/18: 1. Enlarged liver with suggestion of mild liver surface nodularity. Chronic hepatic parenchymal disease is suspected. Diffusely decreased T2 signal intensity of the liver and spleen can represent hemosiderin deposition likely in the setting of secondary hemochromatosis. 2. Large volume ascites. 3. Wall thickening of the gallbladder without gallstones. This likely relates to presence of large volume ascites. 4. Wall thickening of multiple loops of small bowel may also relate to presence of ascites. 5. No intrahepatic biliary ductal dilatation. Mild extrahepatic biliary ductal dilatation measuring up to 10 mm in the mid common bile duct with gradual distal tapering. No filling defects along the course of the common bile duct within the limitations of this exam to represent choledocholithiasis. Plan: HD Monitor LFTs for downward trend, and WBC Continue with diet as tolerated Continue with PPI PRN pain management Paracentesis prn outpatient referral to liver specialist at [facility], [facility], or [facility] if possible for management of her likely liver cirrhosis Pt examined and plan of care discussed with Dr. Webb Result Diagram: 03/28/18 1110 03/28/18 1109 Results 24hrs Laboratory Tests Test 03/28/18 08:17 03/28/18 11:09 03/28/18 11:10 03/28/18 12:50 Bedside Glucose 99 68 L Sodium Level 134 L Potassium Level 5.4 H Chloride Level 100 Carbon Dioxide Level 23 Anion Gap 11 Blood Urea Nitrogen 32 #H Creatinine 4.61 H Est Glomerular Filtrat 12 L Rate mL/min Glucose Level 84 Calcium Level 8.5 White Blood Count 7.3 # Red Blood Count 3.75 L Hemoglobin 9.3 L Hematocrit 29.9 L Mean Corpuscular Volume 79.7 L Mean Corpuscular 24.8 L Hemoglobin Mean Corpuscular 31.1 L Hemoglobin Concent Red Cell Distribution 18.2 H Width Platelet Count 238 Mean Platelet Volume 9.2 Immature Granulocytes % 0.300 Neutrophils % 72.5 Lymphocytes % 14.5 L Monocytes % 8.2 Eosinophils % 4.0 Basophils % 0.5 Nucleated Red Blood 0.0 Cells % Immature Granulocytes # 0.020 Neutrophils # 5.3 Lymphocytes # 1.1 Monocytes # 0.6 Eosinophils # 0.3 Basophils # 0.0 Nucleated Red Blood 0.0 Cells # Test 03/28/18 13:27 03/28/18 13:49 03/28/18 17:03 03/28/18 20:07 Bedside Glucose 65 L 72 71 79 Subjective 24 Hr Interval Summary Free Text/Dictation Continues to have abd pain, pt will get HD today. No nausea. Tolerating PO diet Exam/Review of Systems Vital Signs Vitals Vital Signs Date Temp Pulse Resp B/P (MAP) Pulse Ox O2 O2 Flow FiO2 Time Delivery Rate 03/29/18 98.4 74 133/71 94 Room Air 03:00 (91) 03/28/18 16 20:00 Intake and Output 03/28/18 03/28/18 03/29/18 1515:00 23:00 07:00 IntakeIntake Total 640 ml 240 ml BalanceBalance 640 ml 240 ml Exam Constitutional: alert, oriented Psych: no complaints Head: normocephalic Eyes: PERRL Respiratory: clear to auscultation Cardiovascular: regular rate and rhythm Gastrointestinal: soft, distended, tender Musculoskeletal: nl gait and stance Neurological: nl mental status Medications Medications Current Medications Ondansetron HCl (Zofran Inj) 4 mg Q6H PRN IV NAUSEA AND/OR VOMITING Last administered on 03/16/18 22:40; Admin Dose 4 MG; Start 03/16/18 at 18:30 Diphenhydramine HCl (Benadryl) 25 mg Q6H PRN IV ITCHING Last administered on 03/28/18 18:14; Admin Dose 25 MG; Start 03/16/18 at 18:30 Clonidine (Catapres) 0.1 mg Q6H PRN PO ELEVATED BLOOD PRESSURE Last administered on 03/18/18at 02:50; Admin Dose 0.1 MG; Start 03/16/18 at 20:30 Insulin Aspart (Novolog Insulin Pen) NOVOLOG *MODERATE* ALGORITHM WITH MEALS BEDTIME SC ; Start 03/16/18 at 22:00 Calcitriol (Rocaltrol) 0.25 mcg DAILY PO Last administered on 03/28/18 09:00; Admin Dose 0.25 MCG; Start 03/17/18 at 09:00 Furosemide (Lasix) 40 mg BID PO Last administered on 03/28/18 20:10; Admin Dose 40 MG; Start 03/16/18 at 21:00 Levetiracetam (Keppra) 500 mg BID PO Last administered on 03/28/18 20:09; Admin Dose 500 MG; Start 03/16/18 at 21:00 Nifedipine (Procardia Xl) 30 mg DAILY PO Last administered on 03/28/18 08:26; Admin Dose 30 MG; Start 03/17/18 at 09:00 Pantoprazole (Protonix Tab) 40 mg AC BREAKFAST PO Last administered on 03/29/18 06:40; Admin Dose 40 MG; Start 03/17/18 at 07:00 Quetiapine Fumarate (Seroquel) 300 mg DAILY PO Last administered on 03/28/18 09:00; Admin Dose 300 MG; Start 03/17/18 at 09:00 Sevelamer Carbonate (Renvela) 1.6 gm WITH MEALS PO Last administered on 03/28/18 17:14; Admin Dose 1.6 GM; Start 03/17/18 at 08:00 Miscellaneous Information 1 ea NOTE XX ; Start 03/16/18 at 21:30 Glucose (Glutose) 15 gm Q15M PRN PO DECREASED GLUCOSE; Start 03/16/18 at 21:30 Glucose (Glutose) 22.5 gm Q15M PRN PO DECREASED GLUCOSE; Start 03/16/18 at 21:30 Dextrose (D50w Syringe) 25 ml Q15M PRN IV DECREASED GLUCOSE; Start 03/16/18 at 21:30 Dextrose (D50w Syringe) 50 ml Q15M PRN IV DECREASED GLUCOSE; Start 03/16/18 at 21:30 Glucagon (Glucagen) 1 mg Q15M PRN IM DECREASED GLUCOSE; Start 03/16/18 at 21:30 Glucose (Glutose) 15 gm Q15M PRN BUCCAL DECREASED GLUCOSE; Start 03/16/18 at 21:30 Labetalol HCl (Normodyne) 200 mg BID PO Last administered on 03/28/18 20:11; Admin Dose 200 MG; Start 03/16/18 at 22:00 Loperamide HCl (Imodium Cap) 2 mg Q6H PRN PO diarrhea Last administered on 02/21 12/08at 01:12; Admin Dose 2 MG; Start 03/17/18 at 03:30 Cholestyramine Resin (Questran) 1 pkt DAILY PO Last administered on 03/28/18 08:25; Admin Dose 1 PKT; Start 03/17/18 at 09:00 Acetaminophen (Tylenol Tab) 650 mg Q6H PRN PO MILD PAIN(1-3)OR ELEVATED TEMP Last administered on 03/19/18at 07:55; Admin Dose 650 MG; Start 03/17/18 at 14:00 Hydralazine HCl (Apresoline) 25 mg Q6H PRN PO ELEVATED SYSTOLIC BP Last administered on 03/19/18at 18:13; Admin Dose 25 MG; Start 03/18/18 at 05:30 Heparin Sodium (Porcine) (Heparin (1000 Units/ml)) 2,300 unit AFTER DIALYSIS CATHETER Last administered on 03/26/18 17:29; Admin Dose 2,300 UNIT; Start 03/18/18 at 22:00 Collagenase (Santyl) 1 applic DAILY TOP Last administered on 03/26/18 08:19; Admin Dose 1 APPLIC; Start 03/19/18 at 19:30 Collagenase (Santyl) 1 applic PRN PRN TOP WHEN SOILED Last administered on 03/23/18 21:45; Admin Dose 1 APPLIC; Start 03/19/18 at 19:30 Hydralazine HCl (Apresoline) 10 mg Q6H PRN IV elevated BP Last administered on 03/26/18 18:00; Admin Dose 10 MG; Start 03/19/18 at 19:30 Epoetin Clinton (Epogen (Esrd)) 10,000 units MoWeFr@17 SC Last administered on 03/26/18 17:32; Admin Dose 10,000 UNITS; Start 03/22/18 at 17:00 Multivit/Ca Carb/ B Cmplx/FA/Prenat (Alena-Martin) 1 tab DAILY PO Last administered on 03/27/18 08:36; Admin Dose 1 TAB; Start 03/24/18 at 09:00 Morphine Sulfate (morphine) 10 mg Q4H PRN PO SEVERE PAIN LEVEL 7-10 Last administered on 03/28/18 18:15; Admin Dose 10 MG; Start 03/24/18 at 16:30 Quetiapine Fumarate (Seroquel) 300 mg QHS PO Last administered on 03/28/18 20:10; Admin Dose 300 MG; Start 03/27/18 at 21:00 Citalopram Hydrobromide (Celexa) 20 mg DAILY PO Last administered on 03/28/18 08:27; Admin Dose 20 MG; Start 03/27/18 at 10:30 Buspirone HCl (Buspar) 10 mg BID PO Last administered on 03/28/18 20:09; Admin Dose 10 MG; Start 03/27/18 at 10:30 ROBERT GOODRICH Mar 29, 2018 07:14
[2018-03-29] MEDS: SEVELAMER CARBONATE 0.8 GM PKT PO SCH ×3 (07:57→15:51)
[2018-03-29] MEDS: morphine LIQ (10 MG/5 ML) CUP PO PRN ×2 (07:57→18:28)
[2018-03-29] MEDS: INSULIN ASPART [NOVOLOG] 3 ML PEN SC SCH ×4 (07:59→20:54)
[2018-03-29] MEDS ORDERED: DIPHENHYDRAMINE 50 MG INJ IV PRN (08:00)
--- NOTE | 2018-03-29 08:35 | PN ---
DATE: 03/29/2018 SUBJECTIVE: The patient is stable, no events overnight. No fevers, chills, nausea, vomiting. OBJECTIVE: VITAL SIGNS: Blood pressure is 133/71, respirations 16, pulse 75, temperature 98.5. HEENT: Head is normocephalic. NECK: Supple. HEART: Regular rate. LUNGS: Show diminished breath sounds at the base. ABDOMEN: Soft, nontender to palpation. No rebound or guarding. EXTREMITIES: Negative for clubbing, cyanosis, no edema. DERMATOLOGIC: No rashes. MUSCULOSKELETAL: No joint effusion. NEUROLOGIC: No change in exam. MEDICATIONS: The patient's medications have been reviewed. LABORATORY DATA: Has been reviewed. ASSESSMENT AND PLAN: 1. End-stage renal disease. Plan is for dialysis today. We will dialyze 3 hours 2k bath, calcium 2 .5. 2. Access. The patient has a Petros catheter. Pending Perm-A-Cath placement. We will follow up w [facility] vascular surgery or interventional radiology for placement. The patient also knee revision of AV fistula. 3. Anemia. Continue to monitor hemoglobin and hematocrit levels. Continue Epogen as needed. 4. Mineral bone disorder, monitor calcium and phosphorus levels. We will follow up vitamin D, PTH l evels. 5. Hyperkalemia, resolved. 6. Volume overload. Continue ultrafiltration dialysis. 7. Abdominal pain, improved. Patient is status post ERCP. Continue to monitor. Follow up with GI. 8. Encephalopathy, resolved. 9. Ascites, status post paracentesis. 10. Hypertension. Continue current blood pressure regimen. 11. Gastritis. Continue proton pump inhibitor. Dictated By: SHILO REICH/NTS Conf#: [id number] DID#: [id number] CC: JF KAISER MD;*EndCC*
[2018-03-29] MEDS: COLLAGENASE 5 GM (UD JAR) TOP SCH (09:00)
--- NOTE | 2018-03-29 09:00 | NUR ---
Call [facility] for HD today, states with come [phone]. confirmation#[id number].
[2018-03-29] MEDS: MULTIVIT/CA CARB/B CMPLX/FA TAB PO SCH (09:13)
[2018-03-29] MEDS: CHOLESTYRAMINE 4 GM PACKET PO SCH (09:13)
[2018-03-29] MEDS: QUETIAPINE 100 MG TAB PO SCH ×2 (09:14→20:50)
[2018-03-29] MEDS: LABETALOL 200 MG TAB PO SCH ×2 (09:14→21:00)
[2018-03-29] MEDS: BUSPIRONE 10 MG TAB PO SCH ×2 (09:14→22:04)
[2018-03-29] MEDS: LEVETIRACETAM 500 MG TAB PO SCH ×2 (09:15→20:50)
[2018-03-29] MEDS: CITALOPRAM 20 MG TAB PO SCH (09:15)
[2018-03-29] MEDS: NIFEdipine (XL) 30 MG TAB PO SCH (09:15)
[2018-03-29] MEDS: FUROSEMIDE 40 MG TAB PO SCH ×2 (09:16→21:00)
[2018-03-29] MEDS: CALCITRIOL 0.25 MCG CAP PO SCH (09:24)
[2018-03-29] MEDS: BALSAM PERU/CASTOR OIL 60 GM TUBE TOP SCH (12:59)
[2018-03-29] MEDS: EPOETIN 10000 UNITS/1 ML INJ (ESRD) SC SCH (15:51)
--- NOTE | 2018-03-29 17:43 | PN ---
Date/Time of Note Date/Time of Note DATE: 03/29/18 TIME: 17:42 Assessment/Plan VTE Prophylaxis Risk score (from Nsg)>0 risk: 6 SCD applied (from Nsg): Yes Pharmacological prophylaxis: heparin Lines/Catheters IV Catheter Type (from Nrsg): jericho cath Urinary Cath still in place: No Assessment/Plan Hospital Course Pt is lethargic, s/p Morphine for pain, pending HD, with increased ascites. Plan of Perma cath placement and paracentesis. Assessment/Plan -Abdominal pain status post ERCP with sphincterectomy, removal of stone and stenting by Dr. Webb. -Chronic liver disease, likely cirrhotic. -Anasarca and ascites, s/p paracentesis on 03/15, 03/19, and 03/26. -Hemodialysis dependent end-stage renal disease. Continue hemodialysis per nephrology. Dr. Bledsoe is following in nephrology consultation -Hypertension, continue Procardia and hydralazine as needed. -Diabetes, NovoLog per mild algorithm sliding scale -Seizure disorder, continue Keppra -Gastritis, continue PPI -Anemia of chronic disease, continue Epogen -Depressive disorder with psychosis. Continue Seroquel. Further recommendations based on clinical course. Plan of care discussed with Dr. Smith. Result Diagram: 03/29/18 1029 03/29/18 1029 Results 24hrs Laboratory Tests Test 03/28/18 20:07 03/29/18 07:59 03/29/18 10:29 03/29/18 12:41 Bedside Glucose 79 90 102 White Blood Count 8.4 Red Blood Count 3.33 L Hemoglobin 8.4 L Hematocrit 26.6 L Mean Corpuscular Volume 79.9 L Mean Corpuscular 25.2 L Hemoglobin Mean Corpuscular 31.6 L Hemoglobin Concent Red Cell Distribution 18.2 H Width Platelet Count 284 Mean Platelet Volume 8.8 Immature Granulocytes % 0.500 H Neutrophils % 68.6 Lymphocytes % 16.0 Monocytes % 10.6 Eosinophils % 3.9 Basophils % 0.4 Nucleated Red Blood 0.0 Cells % Immature Granulocytes # 0.040 H Neutrophils # 5.8 Lymphocytes # 1.3 Monocytes # 0.9 Eosinophils # 0.3 Basophils # 0.0 Nucleated Red Blood 0.0 Cells # Sodium Level 132 L Potassium Level 6.1 *H Chloride Level 98 Carbon Dioxide Level 23 Anion Gap 11 Blood Urea Nitrogen 38 H Creatinine 5.73 H Est Glomerular Filtrat 9 L Rate mL/min Glucose Level 90 Calcium Level 8.4 Test 03/29/18 17:09 Bedside Glucose 76 Exam/Review of Systems Vital Signs Vitals Vital Signs Date Temp Pulse Resp B/P (MAP) Pulse Ox O2 O2 Flow FiO2 Time Delivery Rate 03/29/18 98.3 77 18 171/89 96 Room Air 14:00 (116) Intake and Output 03/28/18 03/28/18 03/29/18 1515:00 23:00 07:00 IntakeIntake Total 640 ml 240 ml BalanceBalance 640 ml 240 ml Exam Constitutional: alert, oriented Respiratory: clear to auscultation Cardiovascular: rnl pulse Gastrointestinal: soft, distended Musculoskeletal: nl extremities to inspection Extremities: normal pulses Additional Comments Left chest hemodialysis catheter Medications Medications Current Medications Ondansetron HCl (Zofran Inj) 4 mg Q6H PRN IV NAUSEA AND/OR VOMITING Last admin istered on 03/16/18at 22:40; Admin Dose 4 MG; Start 03/16/18 at 18:30 Diphenhydramine HCl (Benadryl) 25 mg Q6H PRN IV ITCHING Last administered on 03/28/18 18:14; Admin Dose 25 MG; Start 03/16/18 at 18:30 Clonidine (Catapres) 0.1 mg Q6H PRN PO ELEVATED BLOOD PRESSURE Last administered on 03/18/18at 02:50; Admin Dose 0.1 MG; Start 03/16/18 at 20:30 Insulin Aspart (Novolog Insulin Pen) NOVOLOG *MODERATE* ALGORITHM WITH MEALS BEDTIME SC ; Start 03/16/18 at 22:00 Calcitriol (Rocaltrol) 0.25 mcg DAILY PO Last administered on 03/29/18 09:24; Admin Dose 0.25 MCG; Start 03/17/18 at 09:00 Furosemide (Lasix) 40 mg BID PO Last administered on 03/29/18 09:16; Admin Dose 40 MG; Start 03/16/18 at 21:00 Levetiracetam (Keppra) 500 mg BID PO Last administered on 03/29/18 09:15; Admin Dose 500 MG; Start 03/16/18 at 21:00 Nifedipine (Procardia Xl) 30 mg DAILY PO Last administered on 03/29/18 09:15; Admin Dose 30 MG; Start 03/17/18 at 09:00 Pantoprazole (Protonix Tab) 40 mg AC BREAKFAST PO Last administered on 03/29/18 06:40; Admin Dose 40 MG; Start 03/17/18 at 07:00 Quetiapine Fumarate (Seroquel) 300 mg DAILY PO Last administered on 03/29/18 09:14; Admin Dose 300 MG; Start 03/17/18 at 09:00 Sevelamer Carbonate (Renvela) 1.6 gm WITH MEALS PO Last administered on 03/29/18 15:51; Admin Dose 1.6 GM; Start 03/17/18 at 08:00 Miscellaneous Information 1 ea NOTE XX ; Start 03/16/18 at 21:30 Glucose (Glutose) 15 gm Q15M PRN PO DECREASED GLUCOSE; Start 03/16/18 at 21:30 Glucose (Glutose) 22.5 gm Q15M PRN PO DECREASED GLUCOSE; Start 03/16/18 at 21:30 Dextrose (D50w Syringe) 25 ml Q15M PRN IV DECREASED GLUCOSE; Start 03/16/18 at 21:30 Dextrose (D50w Syringe) 50 ml Q15M PRN IV DECREASED GLUCOSE; Start 03/16/18 at 21:30 Glucagon (Glucagen) 1 mg Q15M PRN IM DECREASED GLUCOSE; Start 03/16/18 at 21:30 Glucose (Glutose) 15 gm Q15M PRN BUCCAL DECREASED GLUCOSE; Start 03/16/18 at 21:30 Labetalol HCl (Normodyne) 200 mg BID PO Last administered on 03/29/18 09:14; Admin Dose 200 MG; Start 03/16/18 at 22:00 Loperamide HCl (Imodium Cap) 2 mg Q6H PRN PO diarrhea Last administered on 03/20/18at 01:12; Admin Dose 2 MG; Start 03/17/18 at 03:30 Cholestyramine Resin (Questran) 1 pkt DAILY PO Last administered on 03/29/18 09:13; Admin Dose 1 PKT; Start 03/17/18 at 09:00 Acetaminophen (Tylenol Tab) 650 mg Q6H PRN PO MILD PAIN(1-3)OR ELEVATED TEMP Last administered on 03/19/18 07:55; Admin Dose 650 MG; Start 03/17/18 at 14:00 Hydralazine HCl (Apresoline) 25 mg Q6H PRN PO ELEVATED SYSTOLIC BP Last administered on 03/19/18 18:13; Admin Dose 25 MG; Start 03/18/18 at 05:30 Heparin Sodium (Porcine) (Heparin (1000 Units/ml)) 2,300 unit AFTER DIALYSIS CATHETER Last administered on 03/26/18 17:29; Admin Dose 2,300 UNIT; Start 03/18/18 at 22:00 Collagenase (Santyl) 1 applic DAILY TOP Last administered on 03/26/18 08:19; Admin Dose 1 APPLIC; Start 03/19/18 at 19:30 Collagenase (Santyl) 1 applic PRN PRN TOP WHEN SOILED Last administered on 03/23/18 21:45; Admin Dose 1 APPLIC; Start 03/19/18 at 19:30 Hydralazine HCl (Apresoline) 10 mg Q6H PRN IV elevated BP Last administered on 03/26/18 18:00; Admin Dose 10 MG; Start 03/19/18 at 19:30 Epoetin [place] (Epogen (Esrd)) 10,000 units MoWeFr@17 SC Last administered on 03/29/18 15:51; Admin Dose 10,000 UNITS; Start 03/22/18 at 17:00 Multivit/Ca Carb/ B Cmplx/FA/Prenat (Alena-Martin) 1 tab DAILY PO Last administered on 03/29/18 09:13; Admin Dose 1 TAB; Start 03/24/18 at 09:00 Morphine Sulfate (morphine) 10 mg Q4H PRN PO SEVERE PAIN LEVEL 7-10 Last administered on 03/29/18 07:57; Admin Dose 10 MG; Start 03/24/18 at 16:30 Quetiapine Fumarate (Seroquel) 300 mg QHS PO Last administered on 03/28/18 20:1 0; Admin Dose 300 MG; Start 03/27/18 at 21:00 Citalopram Hydrobromide (Celexa) 20 mg DAILY PO Last administered on 03/29/18 09:15; Admin Dose 20 MG; Start 03/27/18 at 10:30 Buspirone HCl (Buspar) 10 mg BID PO Last administered on 03/29/18at 09:14; Admin Dose 10 MG; Start 03/27/18 at 10:30 Diphenhydramine HCl (Benadryl) 25 mg Q6H PRN IV PRURITUS; Start 03/29/18 at 08:00 BLAKE MORALES Mar 29, 2018 17:42
[2018-03-30 01:16] VITALS: BP 135/65; PULSE 72; RESP 16
[2018-03-30] MEDS: ACCU-CHEK XX SCH (02:00)
[2018-03-30] MEDS: DIPHENHYDRAMINE 50 MG INJ IV PRN ×2 (03:59→15:59)
[2018-03-30] MEDS: INSULIN ASPART [NOVOLOG] 3 ML PEN SC SCH ×2 (05:00→09:00)
[2018-03-30] MEDS: PANTOPRAZOLE (EC) 40 MG TAB PO SCH (06:00)
--- NOTE | 2018-03-30 06:07 | NUR ---
EOSS: Pt. rested comfortably overnight. No acute changes. Pt. had dialysis on 03/29, 1700cc taken out. Pt. has been NPO since midnight for placement of permacath. Consent is signed and pre operative checklist is done. All safety measures in place, pt. free from injury. Will endorse care to oncoming nurse
--- NOTE | 2018-03-30 07:01 | PN ---
Date/Time of Note Date/Time of Note DATE: 03/30/18 TIME: 06:58 Assessment/Plan VTE Prophylaxis Risk score (from Nsg)>0 risk: 5 SCD applied (from Nsg): Yes Pharmacological prophylaxis: NA/contraindicated Pharm contraindication: liver dx Lines/Catheters IV [facility]from [facility] jericho cath Urinary Cath still in place: No Assessment/Plan Hospital Course 52 yo female with ESRD and diarrhea left AMA 03/16 and returned with abdominal pain. 1. Abdominal pain -secondary to ascites -improved 2. Diarrhea -O/P negative. C diff negative -improved 3. Mildly elevated lipase with mid abd pain radiating to back -resolved 4. Mild generalized small and large bowel wall thickening which per CT 03/01 could represent third spacing. 5. Hemorrhoids per pt 6. Mild hepatomegaly 7. Anemia, likely due to chronic disease -Ferritin high, Iron wnl, TIBC low, B12 wnl, folate wnl, FOB negative -no evidence of GI bleeding 8. End stage renal disease on HD 9. Cardiomegaly with mild lower lung pulmonary edema with small left effusion and mild diffuse ascites 10. Anasarca and ascites -03/26 1 liters removed 11. Diabetes 12. Hypertension 13. Elevated alk phos 14. Mildly dilated biliary system with CBD measuring 10mm 15. Chronic liver disease MRCP 03/18: 1. Enlarged liver with suggestion of mild liver surface nodularity. Chronic hepatic parenchymal disease is suspected. Diffusely decreased T2 signal intensity of the liver and spleen can represent hemosiderin deposition likely in the setting of secondary hemochromatosis. 2. Large volume ascites. 3. Wall thickening of the gallbladder without gallstones. This likely relates to presence of large volume ascites. 4. Wall thickening of multiple loops of small bowel may also relate to presence of ascites. 5. No intrahepatic biliary ductal dilatation. Mild extrahepatic biliary ductal dilatation measuring up to 10 mm in the mid common bile duct with gradual distal tapering. No filling defects along the course of the common bile duct within the limitations of this exam to represent choledocholithiasis. Plan: Paracentesis today Pt is having perma cath placed today Monitor LFTs and WBC Continue with diet as tolerated Continue with PPI PRN pain management Paracentesis prn outpatient referral to liver specialist at [facility], [facility], or [facility] if possible for management of her likely liver cirrhosis Pt examined and plan of care discussed with Dr. Webb Result Diagram: 03/29/18 1029 03/29/18 1029 Results 24hrs Laboratory Tests Test 03/29/18 07:59 03/29/18 10:29 03/29/18 12:41 03/29/18 17:09 Bedside Glucose 90 102 76 White Blood Count 8.4 Red Blood Count 3.33 L Hemoglobin 8.4 L Hematocrit 26.6 L Mean Corpuscular Volume 79.9 L Mean Corpuscular 25.2 L Hemoglobin Mean Corpuscular 31.6 L Hemoglobin Concent Red Cell Distribution 18.2 H Width Platelet Count 284 Mean Platelet Volume 8.8 Immature Granulocytes % 0.500 H Neutrophils % 68.6 Lymphocytes % 16.0 Monocytes % 10.6 Eosinophils % 3.9 Basophils % 0.4 Nucleated Red Blood 0.0 Cells % Immature Granulocytes # 0.040 H Neutrophils # 5.8 Lymphocytes # 1.3 Monocytes # 0.9 Eosinophils # 0.3 Basophils # 0.0 Nucleated Red Blood 0.0 Cells # Sodium Level 132 L Potassium Level 6.1 *H Chloride Level 98 Carbon Dioxide Level 23 Anion Gap 11 Blood Urea Nitrogen 38 H Creatinine 5.73 H Est Glomerular Filtrat 9 L Rate mL/min Glucose Level 90 Calcium Level 8.4 Test 03/29/18 20:54 03/30/18 05:06 Bedside Glucose 81 74 Subjective 24 Hr Interval Summary Free Text/Dictation Pt states her abd is more uncomfortable at night. She states it is tender. No N/V. She is packed up to go downstairs for perma cath placement. Received HD yesterday Exam/Review of Systems Vital Signs Vitals Vital Signs Date Temp Pulse Resp B/P (MAP) Pulse Ox O2 O2 Flow FiO2 Time Delivery Rate 03/30/18 98.0 72 16 135/65 91 01:16 (88) 03/29/18 Room Air 19:00 Intake and Output 03/29/18 03/29/18 03/30/18 1515:00 23:00 07:00 IntakeIntake Total 400 ml 120 ml OutputOutput Total 2300 ml BalanceBalance 400 ml -2180 ml Exam Constitutional: alert, oriented Psych: no complaints Eyes: nl sclera, PERRL ENMT: mucosa pink and moist Respiratory: clear to auscultation Cardiovascular: regular rate and rhythm Gastrointestinal: ascites, tender Musculoskeletal: nl gait and stance Neurological: nl mental status Medications Medications Current Medications Ondansetron HCl (Zofran Inj) 4 mg Q6H PRN IV NAUSEA AND/OR VOMITING Last administered on 03/16/18 22:40; Admin Dose 4 MG; Start 03/16/18 at 18:30 Diphenhydramine HCl (Benadryl) 25 mg Q6H PRN IV ITCHING Last administered on 03/30/18 03:59; Admin Dose 25 MG; Start 03/16/18 at 18:30 Clonidine (Catapres) 0.1 mg Q6H PRN PO ELEVATED BLOOD PRESSURE Last administered on 03/18/18 02:50; Admin Dose 0.1 MG; Start 03/16/18 at 20:30 Calcitriol (Rocaltrol) 0.25 mcg DAILY PO Last administered on 03/29/18 09:24; Admin Dose 0.25 MCG; Start 03/17/18 at 09:00 Furosemide (Lasix) 40 mg BID PO Last administered on 03/29/18 09:16; Admin Dose 40 MG; Start 03/16/18 at 21:00 Levetiracetam (Keppra) 500 mg BID PO Last administered on 03/29/18 20:50; Admin Dose 500 MG; Start 03/16/18 at 21:00 Nifedipine (Procardia Xl) 30 mg DAILY PO Last administered on 03/29/18 09:15; Admin Dose 30 MG; Start 03/17/18 at 09:00 Pantoprazole (Protonix Tab) 40 mg AC BREAKFAST PO Last administered on 03/29/18 06:40; Admin Dose 40 MG; Start 03/17/18 at 07:00 Quetiapine Fumarate (Seroquel) 300 mg DAILY PO Last administered on 03/29/18 09:14; Admin Dose 300 MG; Start 03/17/18 at 09:00 Sevelamer Carbonate (Renvela) 1.6 gm WITH MEALS PO Last administered on 03/29/18 15:51; Admin Dose 1.6 GM; Start 03/17/18 at 08:00 Miscellaneous Information 1 ea NOTE XX ; Start 03/16/18 at 21:30 Glucose (Glutose) 15 gm Q15M PRN PO DECREASED GLUCOSE; Start 03/16/18 at 21:30 Glucose (Glutose) 22.5 gm Q15M PRN PO DECREASED GLUCOSE; Start 03/16/18 at 21:30 Dextrose (D50w Syringe) 25 ml Q15M PRN IV DECREASED GLUCOSE; Start 03/16/18 at 21:30 Dextrose (D50w Syringe) 50 ml Q15M PRN IV DECREASED GLUCOSE; Start 03/16/18 at 21:30 Glucagon (Glucagen) 1 mg Q15M PRN IM DECREASED GLUCOSE; Start 03/16/18 at 21:30 Glucose (Glutose) 15 gm Q15M PRN BUCCAL DECREASED GLUCOSE; Start 03/16/18 at 21:30 Labetalol HCl (Normodyne) 200 mg BID PO Last administered on 03/29/18 09:14; Admin Dose 200 MG; Start 03/16/18 at 22:00 Loperamide HCl (Imodium Cap) 2 mg Q6H PRN PO diarrhea Last administered on 03/20/18at 01:12; Admin Dose 2 MG; Start 03/17/18 at 03:30 Cholestyramine Resin (Questran) 1 pkt DAILY PO Last administered on 03/29/18 09:13; Admin Dose 1 PKT; Start 03/17/18 at 09:00 Acetaminophen (Tylenol Tab) 650 mg Q6H PRN PO MILD PAIN(1-3)OR ELEVATED TEMP Last administered on 03/19/18at 07:55; Admin Dose 650 MG; Start 03/17/18 at 14 :00 Hydralazine HCl (Apresoline) 25 mg Q6H PRN PO ELEVATED SYSTOLIC BP Last administered on 03/19/18at 18:13; Admin Dose 25 MG; Start 03/18/18 at 05:30 Heparin Sodium (Porcine) (Heparin (1000 Units/ml)) 2,300 unit AFTER DIALYSIS CATHETER Last administered on 03/26/18 17:29; Admin Dose 2,300 UNIT; Start 03/18/18 at 22:00 Collagenase (Santyl) 1 applic DAILY TOP Last administered on 03/26/18 08:19; Admin Dose 1 APPLIC; Start 03/19/18 at 19:30 Collagenase (Santyl) 1 applic PRN PRN TOP WHEN SOILED Last administered on 03/23/18 21:45; Admin Dose 1 APPLIC; Start 03/19/18 at 19:30 Hydralazine HCl (Apresoline) 10 mg Q6H PRN IV elevated BP Last administered on 03/26/18 18:00; Admin Dose 10 MG; Start 03/19/18 at 19:30 Epoetin [place] (Epogen (Esrd)) 10,000 units MoWeFr@17 SC Last administered on 03/29/18 15:51; Admin Dose 10,000 UNITS; Start 03/22/18 at 17:00 Multivit/Ca Carb/ B Cmplx/FA/Prenat (Alena-Martin) 1 tab DAILY PO Last administered on 03/29/18 09:13; Admin Dose 1 TAB; Start 03/24/18 at 09:00 Morphine Sulfate (morphine) 10 mg Q4H PRN PO SEVERE PAIN LEVEL 7-10 Last administered on 03/29/18 18:28; Admin Dose 10 MG; Start 03/24/18 at 16:30 Quetiapine Fumarate (Seroquel) 300 mg QHS PO Last administered on 03/29/18 20:50; Admin Dose 300 MG; Start 03/27/18 at 21:00 Citalopram Hydrobromide (Celexa) 20 mg DAILY PO Last administered on 03/29/18 09:15; Admin Dose 20 MG; Start 03/27/18 at 10:30 Buspirone HCl (Buspar) 10 mg BID PO Last administered on 03/29/18 22:04; Admin Dose 10 MG; Start 03/27/18 at 10:30 Diphenhydramine HCl (Benadryl) 25 mg Q6H PRN IV PRURITUS; Start 03/29/18 at 08:00 Diagnostic Test (Pha) (Accu-Chek) 1 ea 02 XX ; Start 03/30/18 at 02:00 Insulin Aspart (Novolog Insulin Pen) NOVOLOG *MODERATE* ALGORI... Q4 SC ; Start 03/30/18 at 05:00 ROBERT GOODRICH Mar 30, 2018 07:01
[2018-03-30] MEDS ORDERED: LIDOCAINE 1% (MDV) 20 ML INJ ONE (07:13)
[2018-03-30] MEDS ORDERED: MIDAZOLAM 1 MG/ML 2 ML INJ ONE (07:13)
[2018-03-30] MEDS ORDERED: FENTAnyl 50 MCG/ML VIAL ONE (07:13)
--- NOTE | 2018-03-30 07:30 | NUR ---
Received report from Mendy LIZ. Pt not currently on the floor for a procedure. Will resume care when patient is back.
[2018-03-30] MEDS ORDERED: SOD CHLORIDE 0.9% 500 ML ONE (08:04)
--- NOTE | 2018-03-30 08:21 | NUR ---
Received report from Mariama from [facility] that they have successfully put in a tunneled permacath on left chest. Pt is now in ultrasound for paracentesis.
[2018-03-30 08:40] VITALS: BP 153/69; PULSE 75; RESP 18
--- NOTE | 2018-03-30 08:47 | NUR ---
Spoke to Parminder. Scheduled patient for tomorrow for dialysis as ordered. Confirmation number is [id number]
[2018-03-30 09:05] VITALS: BP 143/67; PULSE 76; RESP 17
--- NOTE | 2018-03-30 09:11 | PN ---
DATE: 03/30/2018 SUBJECTIVE: The patient is pending Perm-A-Cath placement. All other acute events noted. OBJECTIVE: VITAL SIGNS: Blood pressure is 135/65, respirations 16, pulse 72, temperature 98.0. HEENT: Head is normocephalic. NECK: Supple. HEART: Regular rate. LUNGS: Showed diminished breath sounds at base. ABDOMEN: Soft, nontender to palpation without rebound or guarding. EXTREMITIES: Negative for clubbing, cyanosis, no edema. DERMATOLOGIC: No rashes. MUSCULOSKELETAL: No joint effusion. NEUROLOGIC: No change in exam. MEDICATIONS: Reviewed. LABORATORY DATA: Has been reviewed. ASSESSMENT AND PLAN: 1. End-stage renal disease. Patient had hemodialysis yesterday, tolerated well. Will plan for dial ysis tomorrow. 2. Access. The patient is pending Perm-A-Cath placement. The patient will eventually need AV fistu la revision. Continue to monitor. Follow up with vascular surgery. 3. Anemia. Continue to monitor hemoglobin and hematocrit levels. Will give Epogen as needed. 4. Hypokalemia. Continue dialysis on low potassium bath. 5. Mineral bone disorder, monitor calcium and phosphorus levels. The patient's PTH levels are pendi ng. 6. Volume overload. Continue ultrafiltration with dialysis. 7. Abdominal pain, improved. The patient is status post ERCP. Continue to monitor. 8. Encephalopathy, resolved. 9. Ascites, status post paracentesis. 10. Hypertension. Continue current blood pressure regimen. 11. Gastritis. Continue proton pump inhibitor. Dictated By: SHILO REICH/NTS Conf#: [id number] DID#: [id number] CC: JF KAISER MD;*EndCC*
[2018-03-30] MEDS ORDERED: LIDOCAINE 1% (MPF) 5 ML VIAL ONE (09:13)
--- NOTE | 2018-03-30 09:16 | NUR ---
Paracentesis Dr. Matute used 10ml of 1% lidocaine to right lower quadrant for ultrasound guided paracentesis, 2,600ml of yellow color fluid was removed by Dr. Matute, fluid was sent to laboratory for analysis, patient tolerated exam. RP
--- NOTE | 2018-03-30 09:25 | NUR ---
COMPLETED PARACENTESIS. As stated by the U/S Technologist Matthew, Yellow serous fluid aspirated from the abdominal cavity and 1000ml was sent to the lab for analysis as ordered by . She tolerated procedure well and VS remained stable. Small gauze drsg placed over the puncture site dry and intact-no bleeding noted. Released to the room. Report given to AGUSTO Spencer. VS and total fluid removed(2600ml) recorded in Interventions.
--- NOTE | 2018-03-30 09:41 | HPN ---
Date/Time of Note Date/Time of Note DATE: 03/30/18 TIME: 09:41 Interval H&P Admission Note Pt. seen H&P reviewed: No system changes AARTI STEWARD MD Mar 30, 2018 09:41
--- NOTE | 2018-03-30 09:43 | RADRPT ---
PROCEDURE: PLACEMENT OF LEFT INTERNAL JUGULAR VENOUS TUNNELED DIALYSIS CATHETER. CLINICAL INDICATION: Renal failure. TECHNIQUE: Prior to the procedure, informed consent was obtained. Risks including bleeding, infection, and pneum othorax were explained to the patient. The patient understood and was willing to proceed. A procedura l pause was performed. The patient's name, date of , and procedure to be performed were verified . The central line was inserted with all elements of maximal sterile barrier technique. All of the fo llowing were used: head covering, facial mask, sterile gown, sterile gloves, a large sterile sheet, h and hygiene, and 2% chlorhexidine for cutaneous antisepsis. The left neck and anterior/superior jason st wall was prepped and draped in usual sterile fashion. Following the local injection of Xylocaine, a 0.035 in Amplatz guidewire was advanced through the exi sting temporary dialysis catheter. A 1 cm incision with a #11 blade scalpel was made at the site of the existing temporary dialysis catheter and blunt dissection was performed. A tunnel was then creat ed from the anterior lateral aspect of the superior left chest wall to the puncture site in the neck and the catheter was pulled through the tract. The existing temporary dialysis catheter was removed over the guidewire. Serial dilatation was then performed and a 16 [place]er peel away sheath was introd uced. The 14.5 [place]er 23 cm long tip to cuff Angiodynamics BioFlo DuraMax dialysis catheter was adva nced through the 16 [place]er peel-away sheath. The tip of the catheter was confirmed in position within the right atrium. The peel-away sheath was removed. The 2 ports were each flushed with 2.3 ml of 1: 1000 heparin. The catheter was secured to the skin with 2-0 Ethilon. The wound in the neck was closed with 4-0 Vicryl suture using subcuticular running technique. The site was dressed. Specimens: None. Blood loss: 1 ml. Complications: None. Lehr Cutter: None. Anesthesia: Local and moderate sedation. Graft/Implant: Tunneled dialysis catheter. COMPARISON: None. FINDINGS: Final radiographic images demonstrate the tip of the catheter in the upper right atrium. A total of 0.2 minutes of fluoroscopy time was used. 7 images of the chest were obtained with image intensifie r. IMPRESSION: 1. Percutaneous insertion of left internal jugular dialysis tunneled dialysis catheter under fluorosc opic guidance. RPTAT: QQ .Josh Matute MD, Date Time Electronically viewed and signed by .Josh Matute MD, on 03/30/2018 09:43 .R/
[2018-03-30] MEDS: SEVELAMER CARBONATE 0.8 GM PKT PO SCH ×3 (09:45→17:21)
[2018-03-30] MEDS: CHOLESTYRAMINE 4 GM PACKET PO SCH (09:45)
[2018-03-30] MEDS: COLLAGENASE 5 GM (UD JAR) TOP SCH (09:45)
[2018-03-30] MEDS: LEVETIRACETAM 500 MG TAB PO SCH ×2 (09:46→20:53)
[2018-03-30] MEDS: CALCITRIOL 0.25 MCG CAP PO SCH (09:46)
[2018-03-30] MEDS: CITALOPRAM 20 MG TAB PO SCH (09:46)
[2018-03-30] MEDS: BUSPIRONE 10 MG TAB PO SCH ×2 (09:46→20:54)
[2018-03-30] MEDS: MULTIVIT/CA CARB/B CMPLX/FA TAB PO SCH (09:46)
[2018-03-30] MEDS: QUETIAPINE 100 MG TAB PO SCH ×2 (09:46→20:54)
[2018-03-30] MEDS: BALSAM PERU/CASTOR OIL 60 GM TUBE TOP SCH (09:47)
[2018-03-30] MEDS: CHOLECALCIFEROL 2,000 UNIT CAP PO SCH (09:51)
[2018-03-30] MEDS: LABETALOL 200 MG TAB PO SCH ×2 (09:54→20:55)
[2018-03-30] MEDS: NIFEdipine (XL) 30 MG TAB PO SCH (09:55)
[2018-03-30] MEDS: FUROSEMIDE 40 MG TAB PO SCH ×2 (09:55→20:54)
[2018-03-30 10:06] VITALS: BP 136/67; PULSE 77; RESP 18
[2018-03-30] MEDS ORDERED: INSULIN ASPART [NOVOLOG] 3 ML PEN SC SCH (12:00)
[2018-03-30] MEDS: Insulin NOVOLOG SS MODERATE Algorithm (SS with meals and bedtime) SC SCH ×3 (12:00→20:54)
[2018-03-30 14:00] VITALS: BP 172/78; PULSE 73; RESP 16
--- NOTE | 2018-03-30 15:19 | NUR ---
SS NOTE: F/U RE: D/C SW MET WITH PT AT BEDSIDE TO DISCUSS UPCOMING D/C PLANNING. PT WAS ORIGINALLY ADMITTED ON 03/01. AFTER 15 DAYS OF ADMISSION, PT WAS READMITTED TO THE UNIT ON 03/16 AFTER LEAVING AMA TO GO TO HER DAUGHTERS HOME IN [place] FOR A FEW HOURS. PT THEN RETURNED TO [facility] ED AND WAS SUBSEQUENTLY READMITTED THE SAME DAY BACK TO HER ROOM ON U. PLEASE REFER TO [facility] ASSESSMENT NOTE FROM 03/05/18 BELOW FROM ORIGINAL ADMISSION. THIS HOTEL SERVICES SALES REPRESENTATIVE F/U WITH [facility], PT DOES NOT MEET CRITERIA FOR ADMISSION TO PLACEMENT PROGRAM. THIS HOTEL SERVICES SALES REPRESENTATIVE DISCUSSED ALTERNATIVE PLACEMENT OPTIONS SUCH D/C TO HER DAUGHTER' [place]. PT DECLINED SENIOR LIVING OR INDEPENDENT LIVING, [facility]C OPTIONS. PT STATED THAT SHE DOES NOT WANT TO SPEND HER SSI MONEY FOR THOSE HOUSING OPTIONS. PT STATED THAT SHE WILL CONTACT FAMILY MEMBERS TO LOCATE PLACEMENT OPTIONS AND WILL F/U WITH SW TOMORROW. SW TO REMAIN AVAILABLE FOR F/U NEEDED. PLEASE REFER TO [facility] ASSESSMENT NOTE FROM ORIGINAL ADMISSION 03/01/18: 03/05/18: SS Note: Consult SW received notification pt interested in more information regarding AHCD. Pt is also homeless. The patient is a 52-year-old female with a history of HTN and ESRD on hemodialysis who presented with c/o abdominal pain that is generalized, aching, constant associated with diarrhea for the past 2 weeks, per record. SW met with pt at bedside. Pt awake, alert, and oriented X4. She was very pleasant and cooperative with SW. Pt reported she is and has 5 adult children. Per pt, they have their own families and she doesn't want to impose on them. Pt denied having an AHCD. Pt verbally appointed her daughter, Gabi Paris , as surrogate decision maker/spokesperson. Pt homeless x1 month since she was evicted. Pt stated she was staying with her daughter or friends prior to admission. Pt receives dialysis at [facility] on MWF and has transportation arranged. Pt receives SSI benefits $999/month. Pt is independent with ADL's but she feels she requires assistance after her dialysis sessions. Per pt, she had a FWW and cane she used as needed, but lost when she got evicted. Pt has [place] [employer] insurance and stated she has a PCP. Pt reported past hx of cocaine and etoh, but quit approximately 5 years ago. Pt reported hx of depression and bipolar disorder and taking Seroquel prescribed by PCP. SW introduced self and the role of the social insurance adviser. SW provided support and reassurance. SW discussed and provided education about completing and facilitating the AHCD. Pt was provided with AHCD form for her completion. No AHCD f/u requested. SW inquired if pt can return back to daughter's home when medically cleared. Pt stated she doesn't want to return to daughter's because she doesn't want to impose. SW discussed d/c placement options such as Independent [facility]pc, [facility], [facility], and Emergency Shelters. Pt unsure if she would like to use most of her SSI income towards an Independent [facility] and [facility]. Pt interested in the [facility] for possible assistance with placement and agreeable to sign consent for referral to program. SW advised pt placement is not guaranteed and to have a back up plan incase she is not accepted to program or there are no beds. SW to refer pt to the [facility] just awaiting for H&P by MD to be dictated to begin referral process.
[2018-03-30] MEDS: morphine LIQ (10 MG/5 ML) CUP PO PRN (15:59)
--- NOTE | 2018-03-30 17:42 | PN ---
Date/Time of Note Date/Time of Note DATE: 03/30/18 TIME: 17:41 Assessment/Plan VTE Prophylaxis Risk score (from Ns)>0 risk: 4 SCD applied (from Ns): Yes Pharmacological prophylaxis: NA/contraindicated Pharm contraindication: surgical contra Lines/Catheters IV C[facility] Type [facility]from [facility] Saline Lock Urinary Cath still in place: No Assessment/Plan Hospital Course Pt is awake, alert, poor appetite. Pt is s/p Perma cath placement and paracentesis today. Assessment/Plan -Abdominal pain status post ERCP with sphincterectomy, removal of stone and stenting by Dr. Wbeb. -Chronic liver disease, likely cirrhotic. -Anasarca and ascites, s/p paracentesis on 03/15, 03/19, 03/26, 03/30. -Hemodialysis dependent end-stage renal disease. Continue hemodialysis per nephrology. Dr. Bledsoe is following in nephrology consultation -Hypertension, continue Procardia and hydralazine as needed. -Diabetes, NovoLog per mild algorithm sliding scale -Seizure disorder, continue Keppra -Gastritis, continue PPI -Anemia of chronic disease, continue Epogen -Depressive disorder with psychosis. Continue Seroquel. Further recommendations based on clinical course. Plan of care discussed with Dr. Smith. Result Diagram: 03/29/18 1029 03/29/18 1029 Results 24hrs Laboratory Tests Test 03/29/18 20:54 03/30/18 05:06 03/30/18 07:25 03/30/18 09:00 Bedside Glucose 81 74 Lab Scanned BLOOD TRANSFUSIO Report N Body Fluid Type ASCITES Body Fluid Volume 1050.0 Body Fluid Color YELLOW Body Fluid SLIGHTLY HAZY Appearance Body Fluid WBC 1886 Body Fluid RBC 1000 (Auto) Body Fluid 86.2 Polynuclear WBCs (%) Body Fluid 13.8 Mononuclear Cells % Auto Test 03/30/18 09:44 03/30/18 12:39 03/30/18 17:19 Bedside Glucose 72 72 70 Exam/Review of Systems Vital Signs Vitals Vital Signs Date Temp Pulse Resp B/P (MAP) Pulse Ox O2 O2 Flow FiO2 Time Delivery Rate 03/30/18 98.4 73 16 172/78 90 Room Air 14:00 (109) Intake and Output 1/7/19 1/7/19 1/8/19 1515:00 23:00 07:00 IntakeIntake Total 400 ml 120 ml OutputOutput Total 2300 ml BalanceBalance 400 ml -2180 ml Exam Constitutional: alert, oriented Respiratory: clear to auscultation Cardiovascular: rnl pulse Gastrointestinal: soft, distended Musculoskeletal: nl extremities to inspection Extremities: normal pulses Additional Comments Left chest tunneled hemodialysis catheter Medications Medications Current Medications Ondansetron HCl (Zofran Inj) 4 mg Q6H PRN IV NAUSEA AND/OR VOMITING Last administered on 03/16/18 22:40; Admin Dose 4 MG; Start 03/16/18 at 18:30 Diphenhydramine HCl (Benadryl) 25 mg Q6H PRN IV ITCHING Last administered on 03/30/18 15:59; Admin Dose 25 MG; Start 03/16/18 at 18:30 Clonidine (Catapres) 0.1 mg Q6H PRN PO ELEVATED BLOOD PRESSURE Last administered on 03/18/18 02:50; Admin Dose 0.1 MG; Start 03/16/18 at 20:30 Calcitriol (Rocaltrol) 0.25 mcg DAILY PO Last administered on 03/30/18 09:46; Admin Dose 0.25 MCG; Start 03/17/18 at 09:00 Furosemide (Lasix) 40 mg BID PO Last administered on 03/30/18 09:55; Admin Dose 40 MG; Start 03/16/18 at 21:00 Levetiracetam (Keppra) 500 mg BID PO Last administered on 03/30/18 09:46; Admin Dose 500 MG; Start 03/16/18 at 21:00 Nifedipine (Procardia Xl) 30 mg DAILY PO Last administered on 03/30/18 09:55; Admin Dose 30 MG; Start 03/17/18 at 09:00 Pantoprazole (Protonix Tab) 40 mg AC BREAKFAST PO Last administered on 03/29/18 06:40; Admin Dose 40 MG; Start 03/17/18 at 07:00 Quetiapine Fumarate (Seroquel) 300 mg DAILY PO Last administered on 03/30/18 09:46; Admin Dose 300 MG; Start 03/17/18 at 09:00 Sevelamer Carbonate (Renvela) 1.6 gm WITH MEALS PO Last administered on 17:21; Admin Dose 1.6 GM; Start 03/17/18 at 08:00 Miscellaneous Information 1 ea NOTE XX ; Start 03/16/18 at 21:30 Glucose (Glutose) 15 gm Q15M PRN PO DECREASED GLUCOSE; Start 03/16/18 at 21:30 Glucose (Glutose) 22.5 gm Q15M PRN PO DECREASED GLUCOSE; Start 03/16/18 at 21:30 Dextrose (D50w Syringe) 25 ml Q15M PRN IV DECREASED GLUCOSE; Start 03/16/18 at 21:30 Dextrose (D50w Syringe) 50 ml Q15M PRN IV DECREASED GLUCOSE; Start 03/16/18 at 21:30 Glucagon (Glucagen) 1 mg Q15M PRN IM DECREASED GLUCOSE; Start 03/16/18 at 21:30 Glucose (Glutose) 15 gm Q15M PRN BUCCAL DECREASED GLUCOSE; Start 03/16/18 at 21:30 Labetalol HCl (Normodyne) 200 mg BID PO Last administered on 03/30/18 09:54; Admin Dose 200 MG; Start 03/16/18 at 22:00 Loperamide HCl (Imodium Cap) 2 mg Q6H PRN PO diarrhea Last administered on 03/20/18at 01:12; Admin Dose 2 MG; Start 03/17/18 at 03:30 Cholestyramine Resin (Questran) 1 pkt DAILY PO Last administered on 03/30/18 09:45; Admin Dose 1 PKT; Start 03/17/18 at 09:00 Acetaminophen (Tylenol Tab) 650 mg Q6H PRN PO MILD PAIN(1-3)OR ELEVATED TEMP Last administered on 03/19/18at 07:55; Admin Dose 650 MG; Start 03/17/18 at 14:00 Hydralazine HCl (Apresoline) 25 mg Q6H PRN PO ELEVATED SYSTOLIC BP Last administered on 03/19/18 18:13; Admin Dose 25 MG; Start 03/18/18 at 05:30 Heparin Sodium (Porcine) (Heparin (1000 Units/ml)) 2,300 unit AFTER DIALYSIS CATHETER Last administered on 03/26/18 17:29; Admin Dose 2,300 UNIT; Start 03/18/18 at 22:00 Collagenase (Santyl) 1 applic DAILY TOP Last administered on 03/30/18 09:45; Admin Dose 1 APPLIC; Start 03/19/18 at 19:30 Collagenase (Santyl) 1 applic PRN PRN TOP WHEN SOILED Last administered on 03/23/18 21:45; Admin Dose 1 APPLIC; Start 03/19/18 at 19:30 Hydralazine HCl (Apresoline) 10 mg Q6H PRN IV elevated BP Last administered on 03/26/18 18:00; Admin Dose 10 MG; Start 03/19/18 at 19:30 Epoetin Clinton (Epogen (Esrd)) 10,000 units MoWeFr@17 SC Last administered on 03/29/18 15:51; Admin Dose 10,000 UNITS; Start 03/22/18 at 17:00 Multivit/Ca Carb/ B Cmplx/FA/Prenat (Alena-Martin) 1 tab DAILY PO Last administered on 03/30/18 09:46; Admin Dose 1 TAB; Start 03/24/18 at 09:00 Morphine Sulfate (morphine) 10 mg Q4H PRN PO SEVERE PAIN LEVEL 7-10 Last administered on 03/30/18 15:59; Admin Dose 10 MG; Start 03/24/18 at 16:30 Quetiapine Fumarate (Seroquel) 300 mg QHS PO Last administered on 03/29/18 20:50; Admin Dose 300 MG; Start 03/27/18 at 21:00 Citalopram Hydrobromide (Celexa) 20 mg DAILY PO Last administered on 03/30/18 09:46; Admin Dose 20 MG; Start 03/27/18 at 10:30 Buspirone HCl (Buspar) 10 mg BID PO Last administered on 03/30/18 09:46; Admin Dose 10 MG; Start 03/27/18 at 10:30 Diphenhydramine HCl (Benadryl) 25 mg Q6H PRN IV PRURITUS; Start 03/29/18 at 08:00 Diagnostic Test (Pha) (Accu-Chek) 1 ea 02 XX ; Start 03/30/18 at 02:00 Cholecalciferol (Vitamin D) 2,000 unit DAILY PO Last administered on 03/30/18 09:51; Admin Dose 2,000 UNIT; Start 03/30/18 at 09:30 Insulin Aspart (Novolog Insulin Pen) (Adult SC Insulin - Moder... WITH MEALS BEDTIME SC ; Start 03/30/18 at 12:00 BLAKE MORALES Mar 30, 2018 17:42
--- NOTE | 2018-03-30 18:04 | NUR ---
END OF SHIFT NOTES: PT STABLE, ALERT & ORIENTED X4 WITH FORGETFULNESS . NO DISTRESS NOTED. LEFT CHEST PERMACATH PLACED THIS MORNING. PARACENTESIS DONE TODAY. HD ORDERED FOR TOMORROW. MEDICATED WITH BENADRYL AND MORPHINE X1. ACCUCHECKS DONE. INSTRUCTED PT TO CALL FOR ASSISTANCE. VS WNL.HOURLY ROUNDING. CALL LIGHT WITHIN REACH.ALL NEEDS MET. NO NEW COMPLAINTS.
[2018-03-31 00:42] LABS: PTH CALCIUM 7.5 mg/dL (8.6-10.4)
[2018-03-31 02:00] VITALS: BP 146/73; PULSE 71; RESP 18
[2018-03-31] MEDS: ACCU-CHEK XX SCH (02:00)
--- NOTE | 2018-03-31 06:03 | NUR ---
SHIFT NOTES: PATIENT SLEPT MOST OF THE SHIFT. NO COMPLAINTS OF PAIN. LEFT CHEST PERMACATH WITH DRESSING CLEAN DRY AND INTACT. NO BLEEDING NOTED.HOURLY ROUNDING DONE.ASSISTED TO TURN AND REPOSITION FOR COMFORT.VITAL SIGNS STABLE.
[2018-03-31] MEDS: PANTOPRAZOLE (EC) 40 MG TAB PO SCH (06:21)
[2018-03-31] MEDS: DIPHENHYDRAMINE 50 MG INJ IV PRN ×2 (06:26→21:52)
[2018-03-31 07:37] VITALS: BP 151/76; PULSE 72; RESP 18
[2018-03-31] MEDS: Insulin NOVOLOG SS MODERATE Algorithm (SS with meals and bedtime) SC SCH ×4 (08:00→21:00)
[2018-03-31] MEDS: CHOLESTYRAMINE 4 GM PACKET PO SCH (08:08)
[2018-03-31] MEDS: SEVELAMER CARBONATE 0.8 GM PKT PO SCH ×3 (08:08→17:31)
[2018-03-31] MEDS: CITALOPRAM 20 MG TAB PO SCH (08:09)
[2018-03-31] MEDS: CHOLECALCIFEROL 2,000 UNIT CAP PO SCH (08:09)
[2018-03-31] MEDS: CALCITRIOL 0.25 MCG CAP PO SCH (08:09)
[2018-03-31] MEDS: QUETIAPINE 100 MG TAB PO SCH ×2 (08:09→21:10)
[2018-03-31] MEDS: MULTIVIT/CA CARB/B CMPLX/FA TAB PO SCH (08:09)
[2018-03-31] MEDS: BUSPIRONE 10 MG TAB PO SCH ×2 (08:09→21:10)
[2018-03-31] MEDS: LABETALOL 200 MG TAB PO SCH ×2 (08:10→21:09)
[2018-03-31] MEDS: LEVETIRACETAM 500 MG TAB PO SCH ×2 (08:11→21:10)
[2018-03-31] MEDS: NIFEdipine (XL) 30 MG TAB PO SCH (08:11)
[2018-03-31] MEDS: FUROSEMIDE 40 MG TAB PO SCH ×2 (08:11→21:10)
[2018-03-31] MEDS: BALSAM PERU/CASTOR OIL 60 GM TUBE TOP SCH (08:12)
[2018-03-31] MEDS: COLLAGENASE 5 GM (UD JAR) TOP SCH (08:14)
--- NOTE | 2018-03-31 08:37 | PN ---
DATE: 03/31/2018 SUBJECTIVE: The patient is stable. No events overnight. The patient had paracentesis performed and a Perm-A-Cath placement. No other events noted. OBJECTIVE: VITAL SIGNS: Blood pressure is 151/76, respirations 18, pulse 72, temperature 98.7. HEENT: Head is normocephalic. NECK: Supple. HEART: Regular rate. LUNGS: Show diminished breath sounds at the base. ABDOMEN: Soft, nontender to palpation without rebound or guarding. EXTREMITIES: Negative for clubbing, cyanosis, no edema. DERMATOLOGIC: No rashes. MUSCULOSKELETAL: No joint effusion. NEUROLOGIC: No change in exam. MEDICATIONS: Reviewed. LABORATORY DATA: From 03/30/2018 showed sodium 134, potassium 5.7. Laboratory data from 03/31/2018 is pending. ASSESSMENT AND PLAN: 1. End-stage renal disease. The patient had hemodialysis yesterday. Anticipate hemodialysis tomorr ow. 2. Hypokalemia. Continue dialysis, low potassium bath. 3. Anemia. Continue to monitor hemoglobin and hematocrit levels. We will give Epogen as needed. 4. Abscess. The patient is status post PermCath placement. 5. Mineral bone disorder, monitor calcium and phosphorus levels. 6. Volume overload. Continue ultrafiltration dialysis. 7. Abdominal pain, improved. 8. Cirrhosis, liver disease. Continue medical management. The patient is status post paracentesis. 9. Encephalopathy, resolved. 10. Hypertension. Continue current blood pressure regimen. 11. Gastritis. Continue proton pump inhibitor. Dictated By: SHILO REICH/NTS Conf#: [id number] DID#: [id number] CC: RAYMUNDO DOUGLASS MD; JF KAISER MD;*EndCC*
[2018-03-31 08:46] LABS: PTH INTACT 128 pg/mL (14-64)
--- NOTE | 2018-03-31 13:53 | NUR ---
[address] [address] Office Assistant Management note: call to GIULIANO @[employer] Tony FLORES @ [phone] EXT: [phone], rené Patient has Dialysis @ [facility] @ [phone] Bookkeeping Assistant is Madyson @ EXT: [phone]
[2018-03-31 14:00] VITALS: BP 149/82; PULSE 95; RESP 16
--- NOTE | 2018-03-31 17:10 | PN ---
Date/Time of Note Date/Time of Note DATE: 03/31/18 TIME: 17:08 Assessment/Plan VTE Prophylaxis Risk score (from Nsg)>0 risk: 3 SCD applied (from Nsg): Yes Pharmacological prophylaxis: heparin Lines/Catheters IV Catheter Type (from Nrsg): Saline Lock Urinary Cath still in place: No Assessment/Plan Hospital Course Pt status post hemodialysis today, denies any nausea and vomiting, encourage snack before going to bed to avoid low blood sugar in the morning. Assessment/Plan -Abdominal pain status post ERCP with sphincterectomy, removal of stone and stenting by Dr. Webb. -Chronic liver disease, likely cirrhotic. -Anasarca and ascites, s/p paracentesis on 03/15, 03/19, 03/26, 03/30. -Hemodialysis dependent end-stage renal disease. Continue hemodialysis per nephrology. Dr. Bledsoe is following in nephrology consultation -Hypertension, continue Procardia and hydralazine as needed. -Diabetes, NovoLog per mild algorithm sliding scale -Seizure disorder, continue Keppra -Gastritis, continue PPI -Anemia of chronic disease, continue Epogen -Depressive disorder with psychosis. Continue Seroquel. Further recommendations based on clinical course. Plan of care discussed with Dr. Smith. Result Diagram: 03/29/18 1029 03/31/18 1339 Results 24hrs Laboratory Tests Test 03/30/18 17:19 03/30/18 19:56 03/30/18 20:49 03/31/18 08:06 Bedside Glucose 70 71 69 L Sodium Level 134 L Potassium Level 5.7 H Chloride Level 99 Carbon Dioxide Level 25 Anion Gap 10 Blood Urea Nitrogen 31 H Creatinine 4.21 #H Est Glomerular Filtrat 13 L Rate mL/min Glucose Level 73 Calcium Level 8.6 Test 03/31/18 11:43 03/31/18 13:39 Bedside Glucose 71 Sodium Level 136 Potassium Level 3.5 # Chloride Level 96 L Carbon Dioxide Level 30 Anion Gap 10 Blood Urea Nitrogen 17 # Creatinine 2.58 #H Est Glomerular Filtrat 24 L Rate mL/min Glucose Level 81 Calcium Level 8.0 L Exam/Review of Systems Vital Signs Vitals Vital Signs Date Temp Pulse Resp B/P (MAP) Pulse Ox O2 O2 Flow FiO2 Time Delivery Rate 03/31/18 98.0 95 16 149/82 93 Room Air 14:00 (104) Intake and Output 03/30/18 03/30/18 03/31/18 1515:00 23:00 07:00 IntakeIntake Total 400 ml OutputOutput Total 2600 ml BalanceBalance -2600 ml 400 ml Exam Constitutional: alert, oriented Respiratory: clear to auscultation Cardiovascular: rnl pulse Gastrointestinal: soft, distended Musculoskeletal: nl extremities to inspection Extremities: normal pulses Additional Comments Left chest tunneled hemodialysis catheter Medications Medications Current Medications Ondansetron HCl (Zofran Inj) 4 mg Q6H PRN IV NAUSEA AND/OR VOMITING Last administered on 03/16/18 22:40; Admin Dose 4 MG; Start 03/16/18 at 18:30 Diphenhydramine HCl (Benadryl) 25 mg Q6H PRN IV ITCHING Last administered on 03/31/18 06:26; Admin Dose 25 MG; Start 03/16/18 at 18:30 Clonidine (Catapres) 0.1 mg Q6H PRN PO ELEVATED BLOOD PRESSURE Last administ ered on 03/18/18at 02:50; Admin Dose 0.1 MG; Start 03/16/18 at 20:30 Calcitriol (Rocaltrol) 0.25 mcg DAILY PO Last administered on 03/31/18 08:09; Admin Dose 0.25 MCG; Start 03/17/18 at 09:00 Furosemide (Lasix) 40 mg BID PO Last administered on 03/31/18 08:11; Admin Dose 40 MG; Start 03/16/18 at 21:00 Levetiracetam (Keppra) 500 mg BID PO Last administered on 03/31/18 08:11; Admin Dose 500 MG; Start 03/16/18 at 21:00 Nifedipine (Procardia Xl) 30 mg DAILY PO Last administered on 03/31/18 08:11; Admin Dose 30 MG; Start 03/17/18 at 09:00 Pantoprazole (Protonix Tab) 40 mg AC BREAKFAST PO Last administered on 03/31/18 06:21; Admin Dose 40 MG; Start 03/17/18 at 07:00 Quetiapine Fumarate (Seroquel) 300 mg DAILY PO Last administered on 03/31/18 08:09; Admin Dose 300 MG; Start 03/17/18 at 09:00 Sevelamer Carbonate (Renvela) 1.6 gm WITH MEALS PO Last administered on 03/31/18 08:08; Admin Dose 1.6 GM; Start 03/17/18 at 08:00 Miscellaneous Information 1 ea NOTE XX ; Start 03/16/18 at 21:30 Glucose (Glutose) 15 gm Q15M PRN PO DECREASED GLUCOSE; Start 03/16/18 at 21:30 Glucose (Glutose) 22.5 gm Q15M PRN PO DECREASED GLUCOSE; Start 03/16/18 at 21:30 Dextrose (D50w Syringe) 25 ml Q15M PRN IV DECREASED GLUCOSE; Start 03/16/18 at 21:30 Dextrose (D50w Syringe) 50 ml Q15M PRN IV DECREASED GLUCOSE; Start 03/16/18 at 21:30 Glucagon (Glucagen) 1 mg Q15M PRN IM DECREASED GLUCOSE; Start 03/16/18 at 21:30 Glucose (Glutose) 15 gm Q15M PRN BUCCAL DECREASED GLUCOSE; Start 03/16/18 at 21:30 Labetalol HCl (Normodyne) 200 mg BID PO Last administered on 03/31/18 08:10; Admin Dose 200 MG; Start 03/16/18 at 22:00 Loperamide HCl (Imodium Cap) 2 mg Q6H PRN PO diarrhea Last administered on 03/20/18at 01:12; Admin Dose 2 MG; Start 03/17/18 at 03:30 Cholestyramine Resin (Questran) 1 pkt DAILY PO Last administered on 03/31/18 08:08; Admin Dose 1 PKT; Start 03/17/18 at 09:00 Acetaminophen (Tylenol Tab) 650 mg Q6H PRN PO MILD PAIN(1-3)OR ELEVATED TEMP Last administered on 03/19/18at 07:55; Admin Dose 650 MG; Start 03/17/18 at 14:00 Hydralazine HCl (Apresoline) 25 mg Q6H PRN PO ELEVATED SYSTOLIC BP Last administered on 03/19/18at 18:13; Admin Dose 25 MG; Start 03/18/18 at 05:30 Heparin Sodium (Porcine) (Heparin (1000 Units/ml)) 2,300 unit AFTER DIALYSIS CATHETER Last administered on 03/26/18 17:29; Admin Dose 2,300 UNIT; Start 03/18/18 at 22:00 Collagenase (Santyl) 1 applic DAILY TOP Last administered on 03/31/18 08:14; Admin Dose 1 APPLIC; Start 03/19/18 at 19:30 Collagenase (Santyl) 1 applic PRN PRN TOP WHEN SOILED Last administered on 03/23/18 21:45; Admin Dose 1 APPLIC; Start 03/19/18 at 19:30 Hydralazine HCl (Apresoline) 10 mg Q6H PRN IV elevated BP Last administered on 03/26/18 18:00; Admin Dose 10 MG; Start 03/19/18 at 19:30 Epoetin Clinton (Epogen (Esrd)) 10,000 units MoWeFr@17 SC Last administered on 03/29/18 15:51; Admin Dose 10,000 UNITS; Start 03/22/18 at 17:00 Multivit/Ca Carb/ B Cmplx/FA/Prenat (Alena-Martin) 1 tab DAILY PO Last a dministered on 03/31/18 08:09; Admin Dose 1 TAB; Start 03/24/18 at 09:00 Morphine Sulfate (morphine) 10 mg Q4H PRN PO SEVERE PAIN LEVEL 7-10 Last administered on 03/30/18 15:59; Admin Dose 10 MG; Start 03/24/18 at 16:30 Quetiapine Fumarate (Seroquel) 300 mg QHS PO Last administered on 03/30/18 20:54; Admin Dose 300 MG; Start 03/27/18 at 21:00 Citalopram Hydrobromide (Celexa) 20 mg DAILY PO Last administered on 03/31/18 08:09; Admin Dose 20 MG; Start 03/27/18 at 10:30 Buspirone HCl (Buspar) 10 mg BID PO Last administered on 03/31/18 08:09; Admin Dose 10 MG; Start 03/27/18 at 10:30 Diagnostic Test (Pha) (Accu-Chek) 1 ea 02 XX ; Start 03/30/18 at 02:00 Cholecalciferol (Vitamin D) 2,000 unit DAILY PO Last administered on 03/31/18 08:09; Admin Dose 2,000 UNIT; Start 03/30/18 at 09:30 Insulin Aspart (Novolog Insulin Pen) (Adult SC Insulin - Moder... WITH MEALS BEDTIME SC ; Start 03/30/18 at 12:00 BLAKE MORALES Mar 31, 2018 17:10
[2018-03-31] MEDS: EPOETIN 10000 UNITS/1 ML INJ (ESRD) SC SCH (17:32)
--- NOTE | 2018-03-31 17:51 | NUR ---
END OF SHIFT SUMMARY Pt alert presents with hallucinations. Noted talking to herself in the room. All due meds given as ordered, NO acute distress noted. Dialysis done with 1600ml of fluid removed. Accu-checks done as ordered. No insulin required. PermCath dressing changed, dry and intact without any complaints. New order for stool occult to be collect; no BM today will endorse to oncoming shift. Plan is for pt to be discharged home on dialysis but no discharge location. Will endorse plan of care to oncoming shift.
[2018-03-31 19:51] VITALS: BP 120/69; PULSE 66; RESP 20
[2018-04-01] VITALS (16 sets, daily range): BP systolic 119–182; BP diastolic 33–97; PULSE 66–81; RESP 17–19
--- NOTE | 2018-04-01 00:37 | NUR ---
PATIENT WITH HEMODIALYSIS ORDER FOR TODAY,[facility] AWARE WITH CONFIRMATION NUMBER [id number].
[2018-04-01] MEDS: ACCU-CHEK XX SCH (02:00)
--- NOTE | 2018-04-01 05:12 | NUR ---
SHIFT NOTES: PATIENT SLEPT ON AND OFF .NO RESP. DISTRESS NOTED. ASSISTED TO THE BEDSIDE COMMODE. NO BOWEL MOVEMENT DURING THE SHIFT.PATIENT WITH NO S/S HYPO/HYPERGLYCEMIA NOTED.NO NAUSEA OR VOMITING NOTED. VITAL SIGNS STABLE.
[2018-04-01] MEDS: PANTOPRAZOLE (EC) 40 MG TAB PO SCH (06:51)
--- NOTE | 2018-04-01 07:21 | PN ---
Date/Time of Note Date/Time of Note DATE: 04/01/18 TIME: 07:13 Assessment/Plan VTE Prophylaxis Risk score (from Ns)>0 risk: 5 SCD applied (from Ns): Yes Pharmacological prophylaxis: NA/contraindicated Pharm contraindication: low risk/ambulating, liver dx Lines/Catheters IV [facility]ter Type (from [facility] Saline Lock Urinary Cath still in place: No Assessment/Plan Hospital Course 52 yo female with ESRD and diarrhea left AMA 03/16 and returned with abdominal pain. 1. Abdominal pain -secondary to ascites -Ascites fluid: WBC 1886 2. Diarrhea -O/P negative. C diff negative -improved 3. Mildly elevated lipase with mid abd pain radiating to back -resolved 4. Mild generalized small and large bowel wall thickening which per CT 03/01 could represent third spacing. 5. Hemorrhoids per pt 6. Mild hepatomegaly 7. Anemia, likely due to chronic disease -Ferritin high, Iron wnl, TIBC low, B12 wnl, folate wnl, FOB negative -no evidence of GI bleeding 8. End stage renal disease on HD 9. Cardiomegaly with mild lower lung pulmonary edema with small left effusion and mild diffuse ascites 10. Anasarca and ascites -s/p pracentesisi 03/15, 03/19, 03/26, 03/30 11. Diabetes 12. Hypertension 13. Elevated alk phos secondary to chronic liver disease 14. Mildly dilated biliary system with CBD measuring 10mm -s/p ercp 15. Chronic liver disease 16. Spontaneous bacterial peritonitis -started on cefotaxime 2 gm IV q 8 hours MRCP 03/18: 1. Enlarged liver with suggestion of mild liver surface nodularity. Chronic hepatic parenchymal disease is suspected. Diffusely decreased T2 signal intensity of the liver and spleen can represent hemosiderin deposition likely in the setting of secondary hemochromatosis. 2. Large volume ascites. 3. Wall thickening of the gallbladder without gallstones. This likely relates to presence of large volume ascites. 4. Wall thickening of multiple loops of small bowel may also relate to presence of ascites. 5. No intrahepatic biliary ductal dilatation. Mild extrahepatic biliary ductal dilatation measuring up to 10 mm in the mid common bile duct with gradual distal tapering. No filling defects along the course of the common bile duct within the limitations of this exam to represent choledocholithiasis. Plan: Cefotaxime 2 gm IV q 8 hours Pending ascites fluid cultures (fungal and afb included) Monitor LFTs and WBC Continue with diet as tolerated Continue with PPI PRN pain management Paracentesis prn outpatient referral to liver specialist at [facility], [facility], or [facility] if possible for management of her likely liver cirrhosis Pt examined and plan of care discussed with Dr. Webb Result Diagram: 03/29/18 1029 03/31/18 1339 Results 24hrs Laboratory Tests Test 03/31/18 08:06 03/31/18 11:43 03/31/18 13:39 03/31/18 17:31 Bedside Glucose 69 L 71 75 Sodium Level 136 Potassium Level 3.5 # Chloride Level 96 L Carbon Dioxide Level 30 Anion Gap 10 Blood Urea Nitrogen 17 # Creatinine 2.58 #H Est Glomerular Filtrat 24 L Rate mL/min Glucose Level 81 Calcium Level 8.0 L Test 03/31/18 21:08 Bedside Glucose 94 Subjective 24 Hr Interval Summary Free Text/Dictation Afebrile. WBC wnl. Ascitic fluid wbc 1886. Continues to have abd pain Exam/Review of Systems Vital Signs Vitals Vital Signs Date Temp Pulse Resp B/P (MAP) Pulse Ox O2 O2 Flow FiO2 Time Delivery Rate 04/01/18 98.0 66 19 125/60 93 01:51 (81) 03/31/18 Room Air 14:00 Intake and Output 03/31/18 03/31/18 04/01/18 1515:00 23:00 07:00 IntakeIntake Total 360 ml 400 ml BalanceBalance 360 ml 400 ml Exam Constitutional: alert, oriented Eyes: PERRL Respiratory: clear to auscultation, diminished breath sounds Cardiovascular: regular rate and rhythm Gastrointestinal: soft, distended, tender Musculoskeletal: nl gait and stance Neurological: nl mental status Medications Medications Current Medications Ondansetron HCl (Zofran Inj) 4 mg Q6H PRN IV NAUSEA AND/OR VOMITING Last administered on 03/16/18at 22:40; Admin Dose 4 MG; Start 03/16/18 at 18:30 Diphenhydramine HCl (Benadryl) 25 mg Q6H PRN IV ITCHING Last administered on 03/31/18at 21:52; Admin Dose 25 MG; Start 03/16/18 at 18:30 Clonidine (Catapres) 0.1 mg Q6H PRN PO ELEVATED BLOOD PRESSURE Last administered on 03/18/18 02:50; Admin Dose 0.1 MG; Start 03/16/18 at 20:30 Calcitriol (Rocaltrol) 0.25 mcg DAILY PO Last administered on 03/31/18 08:09; Admin Dose 0.25 MCG; Start 03/17/18 at 09:00 Furosemide (Lasix) 40 mg BID PO Last administered on 03/31/18 21:10; Admin Dose 40 MG; Start 03/16/18 at 21:00 Levetiracetam (Keppra) 500 mg BID PO Last administered on 03/31/18 21:10; Admin Dose 500 MG; Start 03/16/18 at 21:00 Nifedipine (Procardia Xl) 30 mg DAILY PO Last administered on 03/31/18 08:11; Admin Dose 30 MG; Start 03/17/18 at 09:00 Pantoprazole (Protonix Tab) 40 mg AC BREAKFAST PO Last administered on 04/01/18 06:51; Admin Dose 40 MG; Start 03/17/18 at 07:00 Quetiapine Fumarate (Seroquel) 300 mg DAILY PO Last administered on 03/31/18 08:09; Admin Dose 300 MG; Start 03/17/18 at 09:00 Sevelamer Carbonate (Renvela) 1.6 gm WITH MEALS PO Last administered on 17:31; Admin Dose 1.6 GM; Start 03/17/18 at 08:00 Miscellaneous Information 1 ea NOTE XX ; Start 03/16/18 at 21:30 Glucose (Glutose) 15 gm Q15M PRN PO DECREASED GLUCOSE; Start 03/16/18 at 21:30 Glucose (Glutose) 22.5 gm Q15M PRN PO DECREASED GLUCOSE; Start 03/16/18 at 21:30 Dextrose (D50w Syringe) 25 ml Q15M PRN IV DECREASED GLUCOSE; Start 03/16/18 at 21:30 Dextrose (D50w Syringe) 50 ml Q15M PRN IV DECREASED GLUCOSE; Start 03/16/18 at 21:30 Glucagon (Glucagen) 1 mg Q15M PRN IM DECREASED GLUCOSE; Start 03/16/18 at 21:30 Glucose (Glutose) 15 gm Q15M PRN BUCCAL DECREASED GLUCOSE; Start 03/16/18 at 21:30 Labetalol HCl (Normodyne) 200 mg BID PO Last administered on 03/31/18 21:09; Admin Dose 200 MG; Start 03/16/18 at 22:00 Loperamide HCl (Imodium Cap) 2 mg Q6H PRN PO diarrhea Last administered on 03/20/18 01:12; Admin Dose 2 MG; Start 03/17/18 at 03:30 Cholestyramine Resin (Questran) 1 pkt DAILY PO Last administered on 03/31/18 08:08; Admin Dose 1 PKT; Start 03/17/18 at 09:00 Acetaminophen (Tylenol Tab) 650 mg Q6H PRN PO MILD PAIN(1-3)OR ELEVATED TEMP Last administered on 03/19/18 07:55; Admin Dose 650 MG; Start 03/17/18 at 14:00 Hydralazine HCl (Apresoline) 25 mg Q6H PRN PO ELEVATED SYSTOLIC BP Last administered on 03/19/18 18:13; Admin Dose 25 MG; Start 03/18/18 at 05:30 Heparin Sodium (Porcine) (Heparin (1000 Units/ml)) 2,300 unit AFTER DIALYSIS CATHETER Last administered on 03/26/18 17:29; Admin Dose 2,300 UNIT; Start 03/18/18 at 22:00 Collagenase (Santyl) 1 applic DAILY TOP Last administered on 03/31/18 08:14; Admin Dose 1 APPLIC; Start 03/19/18 at 19:30 Collagenase (Santyl) 1 applic PRN PRN TOP WHEN SOILED Last administered on 21:45; Admin Dose 1 APPLIC; Start 03/19/18 at 19:30 Hydralazine HCl (Apresoline) 10 mg Q6H PRN IV elevated BP Last administered on 03/26/18 18:00; Admin Dose 10 MG; Start 03/19/18 at 19:30 Epoetin Clinton (Epogen (Esrd)) 10,000 units MoWeFr@17 SC Last administered on 03/31/18 17:32; Admin Dose 10,000 UNITS; Start 03/22/18 at 17:00 Multivit/Ca Carb/ B Cmplx/FA/Prenat (Alena-Martin) 1 tab DAILY PO Last administered on 03/31/18 08:09; Admin Dose 1 TAB; Start 03/24/18 at 09:00 Morphine Sulfate (morphine) 10 mg Q4H PRN PO SEVERE PAIN LEVEL 7-10 Last administered on 03/30/18 15:59; Admin Dose 10 MG; Start 03/24/18 at 16:30 Quetiapine Fumarate (Seroquel) 300 mg QHS PO Last administered on 03/31/18 21:10; Admin Dose 300 MG; Start 03/27/18 at 21:00 Citalopram Hydrobromide (Celexa) 20 mg DAILY PO Last administered on 03/31/18 08:09; Admin Dose 20 MG; Start 03/27/18 at 10:30 Buspirone HCl (Buspar) 10 mg BID PO Last administered on 03/31/18 21:10; Admin Dose 10 MG; Start 03/27/18 at 10:30 Diagnostic Test (Pha) (Accu-Chek) 1 ea 02 XX ; Start 03/30/18 at 02:00 Cholecalciferol (Vitamin D) 2,000 unit DAILY PO Last administered on 03/31/18 08:09; Admin Dose 2,000 UNIT; Start 03/30/18 at 09:30 Insulin Aspart (Novolog Insulin Pen) (Adult SC Insulin - Moder... WITH MEALS BEDTIME SC ; Start 03/30/18 at 12:00 ROBERT GOODRICH Apr 01, 2018 07:21
[2018-04-01] MEDS: Insulin NOVOLOG SS MODERATE Algorithm (SS with meals and bedtime) SC SCH ×4 (07:59→20:25)
[2018-04-01] MEDS: SEVELAMER CARBONATE 0.8 GM PKT PO SCH ×3 (08:00→17:10)
[2018-04-01] MEDS: FUROSEMIDE 40 MG TAB PO SCH ×2 (08:58→20:21)
[2018-04-01] MEDS: NIFEdipine (XL) 30 MG TAB PO SCH (08:59)
[2018-04-01] MEDS: LABETALOL 200 MG TAB PO SCH ×2 (08:59→20:22)
--- NOTE | 2018-04-01 09:01 | PN ---
DATE: 04/01/2018 SUBJECTIVE: The patient is stable, no events overnight. OBJECTIVE: VITAL SIGNS: Blood pressure is 139/67, pulse 71, respirations 17, temperature 98.3. HEENT: Head is normocephalic. NECK: Supple. HEART: Regular rate. LUNGS: Show diminished breath sounds at base. ABDOMEN: Soft, nontender to palpation. No rebound or guarding. EXTREMITIES: Negative for clubbing, cyanosis, no edema. DERMATOLOGIC: No rashes. MUSCULOSKELETAL: No joint effusion. NEUROLOGIC: No change in exam. MEDICATIONS: Reviewed. LABORATORY DATA: Has been reviewed. ASSESSMENT AND PLAN: 1. End-stage renal disease. Plan is for hemodialysis today. We will dialyze 3 hours 2k bath, calci um 2.5. 2. Hyperkalemia, resolved. Continue dialysis a low potassium bath. 3. Anemia. Continue to monitor hemoglobin and hematocrit levels. Will give Epogen as needed. 4. Access. The patient is status post Perm-A-Cath placement. 5. Mineral bone disorder, monitor calcium and phosphorus levels. 6. Volume overload, improving. Continue ultrafiltration dialysis. 7. Abdominal pain, improved. 8. Cirrhosis. Continue medical management. 9. Hypertension. Continue current blood pressure regimen. 10. Gastritis. Continue proton pump inhibitor. Dictated By: SHILO LIU DO NR/NTS Conf#: [id number] DID#: [id number] CC: JF KAISER MD;*EndCC*
[2018-04-01] MEDS: CITALOPRAM 20 MG TAB PO SCH (09:14)
[2018-04-01] MEDS: BUSPIRONE 10 MG TAB PO SCH ×2 (09:14→20:21)
[2018-04-01] MEDS: CHOLESTYRAMINE 4 GM PACKET PO SCH (09:15)
[2018-04-01] MEDS: CALCITRIOL 0.25 MCG CAP PO SCH (09:15)
[2018-04-01] MEDS: QUETIAPINE 100 MG TAB PO SCH ×2 (09:15→20:20)
[2018-04-01] MEDS: LEVETIRACETAM 500 MG TAB PO SCH ×2 (09:15→20:19)
[2018-04-01] MEDS: MULTIVIT/CA CARB/B CMPLX/FA TAB PO SCH (09:15)
[2018-04-01] MEDS: BALSAM PERU/CASTOR OIL 60 GM TUBE TOP SCH (09:15)
[2018-04-01] MEDS: CHOLECALCIFEROL 2,000 UNIT CAP PO SCH (09:15)
[2018-04-01] MEDS: COLLAGENASE 5 GM (UD JAR) TOP SCH (09:15)
--- NOTE | 2018-04-01 09:17 | NUR ---
unable to draw blood from midline or peripherally, will try with HD RN
[2018-04-01] MEDS: CEFTRIAXONE 1 GM/NS 50 ML IVPB SCH (09:53)
[2018-04-01] MEDS: DIPHENHYDRAMINE 50 MG INJ IV PRN ×2 (12:41→20:17)
[2018-04-01] MEDS: HEPARIN 1000 UNITS/ML 10 ML INJ CATHETER SCH (13:57)
[2018-04-01] MEDS ORDERED: CEFOTAXIME 2 GM IVPB SCH (14:00)
[2018-04-01] MEDS: morphine LIQ (10 MG/5 ML) CUP PO PRN (15:06)
--- NOTE | 2018-04-01 16:05 | NUR ---
SS NOTE: F/U SW F/U WITH PT TO DISCUSS THIS END FINDER TWISTING DEPARTMENT DISCUSS D/C TO HER DAUGHTER' GABI'S HOME IN [place]. PT AGAIN DECLINED NURSING HOME OR INDEPENDENT LIVING, B&C OPTIONS. PT STATED THAT SHE IS GOING TO HAVE HER BROTHER CALL HER DAUGHTER OFELIA TO MAKE ARRANGEMENTS FOR POSSIBLE D/C TOMORROW. THIS END FINDER TWISTING DEPARTMENT HAS BEEN UNABLE TO CONTACT PT'S DAUGHTER WITH PROVIDED NUMBER. PT STATED THAT SHE WILL CONTACT FAMILY MEMBERS TO LOCATE PLACEMENT OPTIONS AND WILL F/U WITH SW TOMORROW. SW TO REMAIN AVAILABLE FOR F/U NEEDED.
--- NOTE | 2018-04-01 16:39 | NUR ---
Case Management note: GIULIANO has spoken to Fina @ [phone] regarding discharge planning Together we have search for the returning address following Discharge Patient has stated that she lived with her daughter at differernt times, yet contridicted this statement later by saying two of her daughters have moved away So thisd CM called all available Phone Nummbers including two daughters and Brother Rina is listed as contact in file with number, yet no one ansqwers Mary Jane @ [phone] does not answer either Brother Donny @ [phone] never answered for me, yet Alex REDMOND spoke to him. (Please see note) Cannot promote unsafe discharge without confirmed address. This CM has been in touch with Dialysis, [facility] @ [phone]; Dialysis aware of d/c Pending She had dialysis today; patient also had chair for tomorrow at her Dialysis Center This GIULIANO, Alex and Fina continue to provide assistance to discharge patient to safe environment
--- NOTE | 2018-04-01 16:53 | NUR ---
PATIENT SLEPT ON AND OFF .NO RESP. DISTRESS NOTED.PATIENT WITH NO S/S HYPO/HYPERGLYCEMIA NOTED.NO NAUSEA OR VOMITING NOTED. VITAL SIGNS STABLE. CONTINUES TO REFUSE LAB DRAW AND HEPARIN INJECTIONS Addendum: 04/01/18 at 1657 by PAM DEWEY RN CHARTED IN ERROR, WRONG PT
--- NOTE | 2018-04-01 17:01 | NUR ---
PATIENT SLEPT ON AND OFF .NO RESP. DISTRESS NOTED. ASSISTED TO THE BEDSIDE COMMODE. NO BOWEL MOVEMENT DURING THE SHIFT.PATIENT WITH NO S/S HYPO/HYPERGLYCEMIA NOTED.NO NAUSEA OR VOMITING NOTED. VITAL SIGNS STABLE. hr 1.5L REMOVED TODAY
--- NOTE | 2018-04-01 17:19 | PN ---
Date/Time of Note Date/Time of Note DATE: 04/01/18 TIME: 17:19 Assessment/Plan VTE Prophylaxis Risk score (from [facility])>0 risk: 5 SCD applied (from [facility]): Yes Pharmacological prophylaxis: NA/contraindicated, other Pharm contraindication: other Lines/Catheters IV [facility]from [facility] Saline Lock Urinary Cath still in place: No Assessment/Plan Hospital Course Patient is status post hemodialysis today, resting comfortably, no acute distress. Assessment/Plan -Abdominal pain status post ERCP with sphincterectomy, removal of stone and stenting by Dr. Webb. -Chronic liver disease, likely cirrhotic. -Anasarca and ascites, s/p paracentesis on 03/15, 03/19, 03/26, 03/30. -Hemodialysis dependent end-stage renal disease. Continue hemodialysis per nephrology. Dr. Bledsoe is following in nephrology consultation -Hypertension, continue Procardia and hydralazine as needed. -Diabetes, NovoLog per mild algorithm sliding scale -Seizure disorder, continue Keppra -Gastritis, continue PPI -Anemia of chronic disease, continue Epogen -Depressive disorder with psychosis. Continue Seroquel. Further recommendations based on clinical course. Plan of care discussed with Dr. Smith. Result Diagram: 04/01/18 1110 03/31/18 1339 Results 24hrs Laboratory Tests Test 03/31/18 17:31 03/31/18 21:08 04/01/18 07:57 04/01/18 11:10 Bedside Glucose 75 94 96 White Blood Count 8.2 Red Blood Count 3.00 L Hemoglobin 7.5 L Hematocrit 23.6 L Mean Corpuscular 78.7 L Volume Mean Corpuscular 25.0 L Hemoglobin Mean Corpuscular 31.8 L Hemoglobin Concent Red Cell 18.0 H Distribution Width Platelet Count 194 # Mean Platelet Volume 9.1 Immature 0.400 Granulocytes % Neutrophils % 64.0 Lymphocytes % 18.2 Monocytes % 10.9 Eosinophils % 6.0 Basophils % 0.5 Nucleated Red Blood 0.0 Cells % Immature 0.030 Granulocytes # Neutrophils # 5.3 Lymphocytes # 1.5 Monocytes # 0.9 Eosinophils # 0.5 Basophils # 0.0 Nucleated Red Blood 0.0 Cells # Total Bilirubin 0.0 L Direct Bilirubin 0.00 Indirect Bilirubin 0.0 Aspartate Amino 29 Transf (AST/SGOT) Alanine 10 L Aminotransferase (AL T/SGPT) Alkaline Phosphatase 135 H Total Protein 5.1 L Albumin 2.3 L Test 04/01/18 11:28 04/01/18 17:04 Bedside Glucose 121 101 Exam/Review of Systems Vital Signs Vitals Vital Signs Date Temp Pulse Resp B/P (MAP) Pulse Ox O2 O2 Flow FiO2 Time Delivery Rate 04/01/18 70 14:10 04/01/18 18 149/83 98 Room Air 11:10 (105) 04/01/18 98.3 08:07 Intake and Output 03/31/18 03/31/18 04/01/18 1515:00 23:00 07:00 IntakeIntake Total 360 ml 400 ml BalanceBalance 360 ml 400 ml Exam Constitutional: alert, oriented Respiratory: clear to auscultation Cardiovascular: rnl pulse Gastrointestinal: soft, distended Musculoskeletal: nl extremities to inspection Extremities: normal pulses Additional Comments Left chest tunneled hemodialysis catheter Medications Medications Current Medications Ondansetron HCl (Zofran Inj) 4 mg Q6H PRN IV NAUSEA AND/OR VOMITING Last administered on 03/16/18 22:40; Admin Dose 4 MG; Start 03/16/18 at 18:30 Diphenhydramine HCl (Benadryl) 25 mg Q6H PRN IV ITCHING Last administered on 04/01/18 12:41; Admin Dose 25 MG; Start 03/16/18 at 18:30 Clonidine (Catapres) 0.1 mg Q6H PRN PO ELEVATED BLOOD PRESSURE Last administered on 03/18/18 02:50; Admin Dose 0.1 MG; Start 03/16/18 at 20:30 Calcitriol (Rocaltrol) 0.25 mcg DAILY PO Last administered on 04/01/18 09:15; Admin Dose 0.25 MCG; Start 03/17/18 at 09:00 Furosemide (Lasix) 40 mg BID PO Last administered on 03/31/18 21:10; Admin Dose 40 MG; Start 03/16/18 at 21:00 Levetiracetam (Keppra) 500 mg BID PO Last administered on 04/01/18 09:15; Admin Dose 500 MG; Start 03/16/18 at 21:00 Nifedipine (Procardia Xl) 30 mg DAILY PO Last administered on 03/31/18 08:11; Admin Dose 30 MG; Start 03/17/18 at 09:00 Pantoprazole (Protonix Tab) 40 mg AC BREAKFAST PO Last administered on 04/01/18 06:51; Admin Dose 40 MG; Start 03/17/18 at 07:00 Quetiapine Fumarate (Seroquel) 300 mg DAILY PO Last administered on 04/01/18 09:15; Admin Dose 300 MG; Start 03/17/18 at 09:00 Sevelamer Carbonate (Renvela) 1.6 gm WITH MEALS PO Last administered on 04/01/18 17:10; Admin Dose 1.6 GM; Start 03/17/18 at 08:00 Miscellaneous Information 1 ea NOTE XX ; Start 03/16/18 at 21:30 Glucose (Glutose) 15 gm Q15M PRN PO DECREASED GLUCOSE; Start 03/16/18 at 21:30 Glucose (Glutose) 22.5 gm Q15M PRN PO DECREASED GLUCOSE; Start 03/16/18 at 21:30 Dextrose (D50w Syringe) 25 ml Q15M PRN IV DECREASED GLUCOSE; Start 03/16/18 at 21:30 Dextrose (D50w Syringe) 50 ml Q15M PRN IV DECREASED GLUCOSE; Start 03/16/18 at 21:30 Glucagon (Glucagen) 1 mg Q15M PRN IM DECREASED GLUCOSE; Start 03/16/18 at 21:30 Glucose (Glutose) 15 gm Q15M PRN BUCCAL DECREASED GLUCOSE; Start 03/16/18 at 21:30 Labetalol HCl (Normodyne) 200 mg BID PO Last administered on 03/31/18 21:09; Admin Dose 200 MG; Start 03/16/18 at 22:00 Loperamide HCl (Imodium Cap) 2 mg Q6H PRN PO diarrhea Last administered on at 01:12; Admin Dose 2 MG; Start 03/17/18 at 03:30 Cholestyramine Resin (Questran) 1 pkt DAILY PO Last administered on 04/01/18 09:15; Admin Dose 1 PKT; Start 03/17/18 at 09:00 Acetaminophen (Tylenol Tab) 650 mg Q6H PRN PO MILD PAIN(1-3)OR ELEVATED TEMP Last administered on 03/19/18at 07:55; Admin Dose 650 MG; Start 03/17/18 at 14:00 Hydralazine HCl (Apresoline) 25 mg Q6H PRN PO ELEVATED SYSTOLIC BP Last administered on 03/19/18 18:13; Admin Dose 25 MG; Start 03/18/18 at 05:30 Heparin Sodium (Porcine) (Heparin (1000 Units/ml)) 2,300 unit AFTER DIALYSIS CATHETER Last administered on 04/01/18 13:57; Admin Dose 2,300 UNIT; Start 03/18/18 at 22:00 Collagenase (Santyl) 1 applic DAILY TOP Last administered on 04/01/18 09:15; Admin Dose 1 APPLIC; Start 03/19/18 at 19:30 Collagenase (Santyl) 1 applic PRN PRN TOP WHEN SOILED Last administered on 03/23/18 21:45; Admin Dose 1 APPLIC; Start 03/19/18 at 19:30 Hydralazine HCl (Apresoline) 10 mg Q6H PRN IV elevated BP Last administered on 03/26/18 18:00; Admin Dose 10 MG; Start 03/19/18 at 19:30 Epoetin Clinton (Epogen (Esrd)) 10,000 units MoWeFr@17 SC Last administered on 03/31/18 17:32; Admin Dose 10,000 UNITS; Start 03/22/18 at 17:00 Multivit/Ca Carb/ B Cmplx/FA/Prenat (Alena-Martin) 1 tab DAILY PO Last administered on 04/01/18 09:15; Admin Dose 1 TAB; Start 03/24/18 at 09:00 Morphine Sulfate (morphine) 10 mg Q4H PRN PO SEVERE PAIN LEVEL 7-10 Last administered on 04/01/18 15:06; Admin Dose 10 MG; Start 03/24/18 at 16:30 Quetiapine Fumarate (Seroquel) 300 mg QHS PO Last administered on 03/31/18 21:10; Admin Dose 300 MG; Start 03/27/18 at 21:00 Citalopram Hydrobromide (Celexa) 20 mg DAILY PO Last administered on 04/01/18 09:14; Admin Dose 20 MG; Start 03/27/18 at 10:30 Buspirone HCl (Buspar) 10 mg BID PO Last administered on 04/01/18 09:14; Admin Dose 10 MG; Start 03/27/18 at 10:30 Diagnostic Test (Pha) (Accu-Chek) 1 ea 02 XX ; Start 03/30/18 at 02:00 Cholecalciferol (Vitamin D) 2,000 unit DAILY PO Last administered on 04/01/18at 09:15; Admin Dose 2,000 UNIT; Start 03/30/18 at 09:30 Insulin Aspart (Novolog Insulin Pen) (Adult SC Insulin - Moder... WITH MEALS BEDTIME SC ; Start 03/30/18 at 12:00 Ceftriaxone Sodium 50 ml @ 100 mls/hr Q24H IVPB Last administered on 04/01/18at 09:53; Admin Dose 100 MLS/HR; Start 04/01/18 at 09:30 BLAKE MORALES Apr 01, 2018 17:19
[2018-04-02] MEDS: morphine LIQ (10 MG/5 ML) CUP PO PRN ×2 (01:30→03:27)
--- NOTE | 2018-04-02 01:32 | NUR ---
patient requested morphine and than refused, medication wasted
[2018-04-02 02:00] VITALS: BP 142/68; PULSE 75; RESP 18
[2018-04-02] MEDS: ACCU-CHEK XX SCH (02:00)
[2018-04-02] MEDS: PANTOPRAZOLE (EC) 40 MG TAB PO SCH (06:04)
[2018-04-02] MEDS: DIPHENHYDRAMINE 50 MG INJ IV PRN ×3 (06:08→20:45)
--- NOTE | 2018-04-02 06:14 | NUR ---
Shift Summary Pt in no acute distress. A&O x 3-4 during shift. Pt requested morphine then refused it 3 times during shift. Medication was wasted. Pt did take PO morphine once during shift, pain then treated with effectiveness. All needs attended. Will endorse care to next shift.
[2018-04-02 07:00] VITALS: BP 156/71; PULSE 67; RESP 18
[2018-04-02] MEDS: Insulin NOVOLOG SS MODERATE Algorithm (SS with meals and bedtime) SC SCH ×4 (08:00→20:32)
--- NOTE | 2018-04-02 08:26 | PN ---
DATE: 04/02/2018 SUBJECTIVE: The patient is stable, no events overnight. No fevers, chills, nausea, or vomiting. OBJECTIVE: VITAL SIGNS: Blood pressure is 142/68, respirations 18, pulse 75, temperature 98.5. HEENT: Head is normocephalic. NECK: Supple. HEART: Regular rate. LUNGS: Show diminished breath sounds at the base. ABDOMEN: Soft, nontender to palpation without rebound or guarding. EXTREMITIES: Negative for clubbing, cyanosis, no edema. DERMATOLOGIC: No rashes. MUSCULOSKELETAL: No joint effusion. NEUROLOGIC: No change in exam. MEDICATIONS: Reviewed. LABORATORY DATA: Reviewed. ASSESSMENT AND PLAN: 1. End-stage renal disease. The patient had hemodialysis yesterday, tolerated well. Plan is for di alysis tomorrow. 2. Hyperkalemia, resolved. Continue dialysis a low potassium bath. 3. Anemia. Continue to monitor hemoglobin and hematocrit levels. We will give Epogen as needed. 4. Access. The patient is status post PermCath placement. Continue access care. 5. Mineral bone disorder, monitor calcium and phosphorus levels. 6. Volume overload, improving. Continue ultrafiltration dialysis. 7. Cirrhosis. Continue medical management. 8. Hypertension. Continue current blood pressure regimen. 9. Gastritis. Continue proton pump inhibitor. Dictated By: SHILO LIU DO NR/NTS Conf#: [id number] DID#: [id number] CC: JF KAISER MD; RAYMUNDO DOUGLASS MD;*EndCC*
[2018-04-02] MEDS: MULTIVIT/CA CARB/B CMPLX/FA TAB PO SCH (09:15)
[2018-04-02] MEDS: LEVETIRACETAM 500 MG TAB PO SCH ×2 (09:15→20:31)
[2018-04-02] MEDS: FUROSEMIDE 40 MG TAB PO SCH ×2 (09:15→20:27)
[2018-04-02] MEDS: CALCITRIOL 0.25 MCG CAP PO SCH (09:15)
[2018-04-02] MEDS: CHOLESTYRAMINE 4 GM PACKET PO SCH (09:15)
[2018-04-02] MEDS: COLLAGENASE 5 GM (UD JAR) TOP SCH (09:15)
[2018-04-02] MEDS: SEVELAMER CARBONATE 0.8 GM PKT PO SCH ×3 (09:15→17:18)
[2018-04-02] MEDS: CITALOPRAM 20 MG TAB PO SCH (09:16)
[2018-04-02] MEDS: CHOLECALCIFEROL 2,000 UNIT CAP PO SCH (09:16)
[2018-04-02] MEDS: NIFEdipine (XL) 30 MG TAB PO SCH (09:16)
[2018-04-02] MEDS: LABETALOL 200 MG TAB PO SCH ×2 (09:16→20:32)
[2018-04-02] MEDS: BUSPIRONE 10 MG TAB PO SCH ×2 (09:16→20:31)
[2018-04-02] MEDS: QUETIAPINE 100 MG TAB PO SCH ×2 (09:16→20:32)
[2018-04-02] MEDS: BALSAM PERU/CASTOR OIL 60 GM TUBE TOP SCH (09:17)
[2018-04-02] MEDS: CEFTRIAXONE 1 GM/NS 50 ML IVPB SCH ×2 (09:17→14:47)
[2018-04-02] MEDS ORDERED: ALTEPLASE (CATHFLO) 2 MG INJ CATHETER ONE (11:30)
--- NOTE | 2018-04-02 13:13 | NUR ---
SS NOTE: F/U SW F/U WITH PT TO DISCUSS THIS NITRIC ACID CONCENTRATOR OPERATOR DISCUSS D/C TO HER DAUGHTER GABI ANNA'Liz ([phone]),HOME IN [place]. PT HAS PREVIOUSLY DECLINED SENIOR LIVING OR INDEPENDENT LIVING, B&C OPTIONS. PT STATED THAT HER BROTHER ATTEMPTED TO CALL HER DAUGHTER OF[employer] TO MAKE ARRANGEMENTS FOR POSSIBLE D/C TOMORROW. PT WAS UNABLE TO CONFIRM IF SHE CAN BE D/C BACK TO THIS LOCATION. THIS NITRIC ACID CONCENTRATOR OPERATOR ATTEMPTED TO CONTACT PT'S DAUGHTER WITH PROVIDED NUMBER AND LEFT DETAILED VM REQUESTING LEANDRO BACK. [employer] UPDATED GIULIANO PARKER WHO INFORMED THIS NITRIC ACID CONCENTRATOR OPERATOR THAT PT IS NOW SCHEDULED TO RECEIVE INPATIENT DIALYSIS ON THURSDAY DELAYING D/C PROCESS. CM TO CONTINUE TO ATTEMPT TO PLACE PT TO SNF ALTERNATIVE D/C PLAN. SW TO REMAIN AVAILABLE FOR F/U NEEDED.
--- NOTE | 2018-04-02 13:16 | PN ---
Date/Time of Note Date/Time of Note DATE: 04/02/18 TIME: 13:12 Assessment/Plan VTE Prophylaxis Risk score (from Nsg)>0 risk: 3 SCD applied (from Ns): Yes SCD contraindicated: low risk/ambulating Pharmacological prophylaxis: NA/contraindicated Pharm contraindication: bleeding Lines/Catheters IV Catheter Type (from [facility]): permacath Urinary Cath still in place: No (hemodialysis patient) Assessment/Plan Hospital Course 52 yo female with ESRD and diarrhea left AMA 03/16 and returned with abdominal pain. 1. Abdominal pain -secondary to ascites -Ascites fluid: WBC 1886 2. Diarrhea -O/P negative. C diff negative -improved 3. Mildly elevated lipase with mid abd pain radiating to back -resolved 4. Mild generalized small and large bowel wall thickening which per CT 03/01 could represent third spacing. 5. Hemorrhoids per pt 6. Mild hepatomegaly 7. Anemia, likely due to chronic disease -Ferritin high, Iron wnl, TIBC low, B12 wnl, folate wnl, FOB negative -no evidence of GI bleeding 8. End stage renal disease on HD 9. Cardiomegaly with mild lower lung pulmonary edema with small left effusion and mild diffuse ascites 10. Anasarca and ascites -s/p pracentesisi 03/15, 03/19, 03/26, 03/30 11. Diabetes 12. Hypertension 13. Elevated alk phos secondary to chronic liver disease 14. Mildly dilated biliary system with CBD measuring 10mm -s/p ercp 15. Chronic liver disease 16. Spontaneous bacterial peritonitis -started on cefotaxime 2 gm IV q 8 hours MRCP 03/18: 1. Enlarged liver with suggestion of mild liver surface nodularity. Chronic hepatic parenchymal disease is suspected. Diffusely decreased T2 signal intensity of the liver and spleen can represent hemosiderin deposition likely in the setting of secondary hemochromatosis. 2. Large volume ascites. 3. Wall thickening of the gallbladder without gallstones. This likely relates to presence of large volume ascites. 4. Wall thickening of multiple loops of small bowel may also relate to presence of ascites. 5. No intrahepatic biliary ductal dilatation. Mild extrahepatic biliary ductal dilatation measuring up to 10 mm in the mid common bile duct with gradual distal tapering. No filling defects along the course of the common bile duct within the limitations of this exam to represent choledocholithiasis. Plan: Recommend Cefotaxime 2 gm IV q 8 hours Pending ascites fluid cultures (fungal and afb included) Monitor LFTs and WBC Continue with diet as tolerated Continue with PPI PRN pain management Paracentesis prn outpatient referral to liver specialist at [facility], [facility], or [facility] if possible for management of her likely liver cirrhosis Pt examined and plan of care discussed with Dr. Webb Result Diagram: 04/02/1827 04/02/18726 Results 24hrs Laboratory Tests Test 04/01/18 17:04 04/01/18 20:25 04/02/18 07:27 04/02/18 08:00 Bedside Glucose 101 136 82 White Blood Count 9.3 Red Blood Count 3.90 #L Hemoglobin 9.8 #L Hematocrit 31.6 #L Mean Corpuscular 81.0 L Volume Mean Corpuscular 25.1 L Hemoglobin Mean Corpuscular 31.0 L Hemoglobin Concent Red Cell 18.6 H Distribution Width Platelet Count 164 Mean Platelet Volume 10.3 Immature 0.400 Granulocytes % Neutrophils % 67.8 Lymphocytes % 18.1 Monocytes % 8.8 Eosinophils % 4.5 Basophils % 0.4 Nucleated Red Blood 0.0 Cells % Immature 0.040 H Granulocytes # Neutrophils # 6.3 Lymphocytes # 1.7 Monocytes # 0.8 Eosinophils # 0.4 Basophils # 0.0 Nucleated Red Blood 0.0 Cells # Sodium Level 135 Potassium Level 4.3 Chloride Level 101 Carbon Dioxide Level 24 Anion Gap 10 Blood Urea Nitrogen 18 Creatinine 3.06 H Est Glomerular 19 L Filtrat Rate mL/min Glucose Level 78 Calcium Level 9.1 Phosphorus Level 3.6 Magnesium Level 2.0 Test 04/02/18 12:44 Bedside Glucose 129 Subjective 24 Hr Interval Summary Free Text/Dictation Pt sleeping. RN states no c/o abdominal pain, no pain medication given. Central line is not working. I ordered yesterday Cefotaxime 2 gm IV q 8 hours but it seems to have been switched to rocephin. Exam/Review of Systems Vital Signs Vitals Vital Signs Date Temp Pulse Resp B/P (MAP) Pulse Ox O2 O2 Flow FiO2 Time Delivery Rate 04/02/18 97.8 67 18 156/71 95 Room Air 07:00 (99) Intake and Output 04/01/18 04/01/18 04/02/18 1515:00 23:00 07:00 IntakeIntake Total 290 ml 120 ml OutputOutput Total 2000 ml BalanceBalance -1710 ml 120 ml Medications Medications Current Medications Ondansetron HCl (Zofran Inj) 4 mg Q6H PRN IV NAUSEA AND/OR VOMITING Last administered on 03/16/18 22:40; Admin Dose 4 MG; Start 03/16/18 at 18:30 Diphenhydramine HCl (Benadryl) 25 mg Q6H PRN IV ITCHING Last administered on 04/02/18 06:08; Admin Dose 25 MG; Start 03/16/18 at 18:30 Clonidine (Catapres) 0.1 mg Q6H PRN PO ELEVATED BLOOD PRESSURE Last administered on 03/18/18 02:50; Admin Dose 0.1 MG; Start 03/16/18 at 20:30 Calcitriol (Rocaltrol) 0.25 mcg DAILY PO Last administered on 04/02/18 09:15; Admin Dose 0.25 MCG; Start 03/17/18 at 09:00 Furosemide (Lasix) 40 mg BID PO Last administered on 04/02/18 09:15; Admin Dose 40 MG; Start 03/16/18 at 21:00 Levetiracetam (Keppra) 500 mg BID PO Last administered on 04/02/18 09:15; Admin Dose 500 MG; Start 03/16/18 at 21:00 Nifedipine (Procardia Xl) 30 mg DAILY PO Last administered on 04/02/18 09:16; Admin Dose 30 MG; Start 03/17/18 at 09:00 Pantoprazole (Protonix Tab) 40 mg AC BREAKFAST PO Last administered on 04/02/18 06:04; Admin Dose 40 MG; Start 03/17/18 at 07:00 Quetiapine Fumarate (Seroquel) 300 mg DAILY PO Last administered on 04/02/18 09:16; Admin Dose 300 MG; Start 03/17/18 at 09:00 Sevelamer Carbonate (Renvela) 1.6 gm WITH MEALS PO Last administered on 04/02/18 12:43; Admin Dose 1.6 GM; Start 03/17/18 at 08:00 Miscellaneous Information 1 ea NOTE XX ; Start 03/16/18 at 21:30 Glucose (Glutose) 15 gm Q15M PRN PO DECREASED GLUCOSE; Start 03/16/18 at 21:30 Glucose (Glutose) 22.5 gm Q15M PRN PO DECREASED GLUCOSE; Start 03/16/18 at 21:30 Dextrose (D50w Syringe) 25 ml Q15M PRN IV DECREASED GLUCOSE; Start 03/16/18 at 21:30 Dextrose (D50w Syringe) 50 ml Q15M PRN IV DECREASED GLUCOSE; Start 03/16/18 at 21:30 Glucagon (Glucagen) 1 mg Q15M PRN IM DECREASED GLUCOSE; Start 03/16/18 at 21:30 Glucose (Glutose) 15 gm Q15M PRN BUCCAL DECREASED GLUCOSE; Start 03/16/18 at 21:30 Labetalol HCl (Normodyne) 200 mg BID PO Last administered on 04/02/18 09:16; Admin Dose 200 MG; Start 03/16/18 at 22:00 Loperamide HCl (Imodium Cap) 2 mg Q6H PRN PO diarrhea Last administered on 03/20/18at 01:12; Admin Dose 2 MG; Start 03/17/18 at 03:30 Cholestyramine Resin (Questran) 1 pkt DAILY PO Last administered on 04/02/18 09:15; Admin Dose 1 PKT; Start 03/17/18 at 09:00 Acetaminophen (Tylenol Tab) 650 mg Q6H PRN PO MILD PAIN(1-3)OR ELEVATED TEMP Last administered on 03/19/18at 07:55; Admin Dose 650 MG; Start 03/17/18 at 14:00 Hydralazine HCl (Apresoline) 25 mg Q6H PRN PO ELEVATED SYSTOLIC BP Last administered on 03/19/18at 18:13; Admin Dose 25 MG; Start 03/18/18 at 05:30 Heparin Sodium (Porcine) (Heparin (1000 Units/ml)) 2,300 unit AFTER DIALYSIS CATHETER Last administered on 04/01/18 13:57; Admin Dose 2,300 UNIT; Start 03/18/18 at 22:00 Collagenase (Santyl) 1 applic DAILY TOP Last administered on 04/02/18 09:15; Admin Dose 1 APPLIC; Start 03/19/18 at 19:30 Collagenase (Santyl) 1 applic PRN PRN TOP WHEN SOILED Last administered on 03/23/18 21:45; Admin Dose 1 APPLIC; Start 03/19/18 at 19:30 Hydralazine HCl (Apresoline) 10 mg Q6H PRN IV elevated BP Last administered on 03/26/18 18:00; Admin Dose 10 MG; Start 03/19/18 at 19:30 Epoetin Clinton (Epogen (Esrd)) 10,000 units MoWeFr@17 SC Last administered on 03/31/18 17:32; Admin Dose 10,000 UNITS; Start 03/22/18 at 17:00 Multivit/Ca Carb/ B Cmplx/FA/Prenat (Alena-Martin) 1 tab DAILY PO Last administered on 04/02/18 09:15; Admin Dose 1 TAB; Start 03/24/18 at 09:00 Morphine Sulfate (morphine) 10 mg Q4H PRN PO SEVERE PAIN LEVEL 7-10 Last administered on 04/02/18 03:27; Admin Dose 10 MG; Start 03/24/18 at 16:30 Quetiapine Fumarate (Seroquel) 300 mg QHS PO Last administered on 04/01/18 20:20; Admin Dose 300 MG; Start 03/27/18 at 21:00 Citalopram Hydrobromide (Celexa) 20 mg DAILY PO Last administered on 04/02/18 09:16; Admin Dose 20 MG; Start 03/27/18 at 10:30 Buspirone HCl (Buspar) 10 mg BID PO Last administered on 04/02/18 09:16; Admin Dose 10 MG; Start 03/27/18 at 10:30 Diagnostic Test (Pha) (Accu-Chek) 1 ea 02 XX ; Start 03/30/18 at 02:00 Cholecalciferol (Vitamin D) 2,000 unit DAILY PO Last administered on 04/02/18 09:16; Admin Dose 2,000 UNIT; Start 03/30/18 at 09:30 Insulin Aspart (Novolog Insulin Pen) (Adult SC Insulin - Moder... WITH MEALS BEDTIME SC ; Start 03/30/18 at 12:00 Ceftriaxone Sodium 50 ml @ 100 mls/hr Q24H IVPB Last administered on 04/01/18 09:53; Admin Dose 100 MLS/HR; Start 04/01/18 at 09:30 ROBERT GOODRICH 11, 2019 13:16
[2018-04-02 14:00] VITALS: BP 129/73; PULSE 71; RESP 19
--- NOTE | 2018-04-02 14:33 | PN ---
Date/Time of Note Date/Time of Note DATE: 04/02/18 TIME: 14:33 Assessment/Plan VTE Prophylaxis Risk score (from Ns)>0 risk: 3 SCD applied (from Ns): Yes SCD contraindicated: other Pharmacological prophylaxis: other Pharm contraindication: other Lines/Catheters IV Catheter Type (from [facility]): permacath Central line still needed: Yes Urinary Cath still in place: No (hemodialysis patient) Assessment/Plan Result Diagram: 04/02/1872604/02/18726 Results 24hrs Laboratory Tests Test 04/01/18 17:04 04/01/18 20:25 04/02/18 07:27 04/02/18 08:00 Bedside Glucose 101 136 82 White Blood Count 9.3 Red Blood Count 3.90 #L Hemoglobin 9.8 #L Hematocrit 31.6 #L Mean Corpuscular 81.0 L Volume Mean Corpuscular 25.1 L Hemoglobin Mean Corpuscular 31.0 L Hemoglobin Concent Red Cell 18.6 H Distribution Width Platelet Count 164 Mean Platelet Volume 10.3 Immature 0.400 Granulocytes % Neutrophils % 67.8 Lymphocytes % 18.1 Monocytes % 8.8 Eosinophils % 4.5 Basophils % 0.4 Nucleated Red Blood 0.0 Cells % Immature 0.040 H Granulocytes # Neutrophils # 6.3 Lymphocytes # 1.7 Monocytes # 0.8 Eosinophils # 0.4 Basophils # 0.0 Nucleated Red Blood 0.0 Cells # Sodium Level 135 Potassium Level 4.3 Chloride Level 101 Carbon Dioxide Level 24 Anion Gap 10 Blood Urea Nitrogen 18 Creatinine 3.06 H Est Glomerular 19 L Filtrat Rate mL/min Glucose Level 78 Calcium Level 9.1 Phosphorus Level 3.6 Magnesium Level 2.0 Test 04/02/18 12:44 Bedside Glucose 129 Subjective 24 Hr Interval Summary Free Text/Dictation HD today Exam/Review of Systems Vital Signs Vitals Vital Signs Date Temp Pulse Resp B/P (MAP) Pulse Ox O2 O2 Flow FiO2 Time Delivery Rate 04/02/18 97.8 67 18 156/71 95 Room Air 07:00 (99) Intake and Output 04/01/18 04/01/18 04/02/18 1515:00 23:00 07:00 IntakeIntake Total 290 ml 120 ml OutputOutput Total 2000 ml BalanceBalance -1710 ml 120 ml Medications Medications Current Medications Ondansetron HCl (Zofran Inj) 4 mg Q6H PRN IV NAUSEA AND/OR VOMITING Last administered on 03/16/18at 22:40; Admin Dose 4 MG; Start 03/16/18 at 18:30 Diphenhydramine HCl (Benadryl) 25 mg Q6H PRN IV ITCHING Last administered on 04/02/18 06:08; Admin Dose 25 MG; Start 03/16/18 at 18:30 Clonidine (Catapres) 0.1 mg Q6H PRN PO ELEVATED BLOOD PRESSURE Last administered on 03/18/18at 02:50; Admin Dose 0.1 MG; Start 03/16/18 at 20:30 Calcitriol (Rocaltrol) 0.25 mcg DAILY PO Last administered on 04/02/18 09:15; Admin Dose 0.25 MCG; Start 03/17/18 at 09:00 Furosemide (Lasix) 40 mg BID PO Last administered on 04/02/18 09:15; Admin Dose 40 MG; Start 03/16/18 at 21:00 Levetiracetam (Keppra) 500 mg BID PO Last administered on 04/02/18 09:15; Admin Dose 500 MG; Start 03/16/18 at 21:00 Nifedipine (Procardia Xl) 30 mg DAILY PO Last administered on 04/02/18 09:16; Admin Dose 30 MG; Start 03/17/18 at 09:00 Pantoprazole (Protonix Tab) 40 mg AC BREAKFAST PO Last administered on 04/02/18 06:04; Admin Dose 40 MG; Start 03/17/18 at 07:00 Quetiapine Fumarate (Seroquel) 300 mg DAILY PO Last administered on 04/02/18 09:16; Admin Dose 300 MG; Start 03/17/18 at 09:00 Sevelamer Carbonate (Renvela) 1.6 gm WITH MEALS PO Last administered on 04/02/18 12:43; Admin Dose 1.6 GM; Start 03/17/18 at 08:00 Miscellaneous Information 1 ea NOTE XX ; Start 03/16/18 at 21:30 Glucose (Glutose) 15 gm Q15M PRN PO DECREASED GLUCOSE; Start 03/16/18 at 21:30 Glucose (Glutose) 22.5 gm Q15M PRN PO DECREASED GLUCOSE; Start 03/16/18 at 21 :30 Dextrose (D50w Syringe) 25 ml Q15M PRN IV DECREASED GLUCOSE; Start 03/16/18 at 21:30 Dextrose (D50w Syringe) 50 ml Q15M PRN IV DECREASED GLUCOSE; Start 03/16/18 at 21:30 Glucagon (Glucagen) 1 mg Q15M PRN IM DECREASED GLUCOSE; Start 03/16/18 at 21:30 Glucose (Glutose) 15 gm Q15M PRN BUCCAL DECREASED GLUCOSE; Start 03/16/18 at 21:30 Labetalol HCl (Normodyne) 200 mg BID PO Last administered on 04/02/18 09:16; Admin Dose 200 MG; Start 03/16/18 at 22:00 Loperamide HCl (Imodium Cap) 2 mg Q6H PRN PO diarrhea Last administered on 03/20/18at 01:12; Admin Dose 2 MG; Start 03/17/18 at 03:30 Cholestyramine Resin (Questran) 1 pkt DAILY PO Last administered on 04/02/18 09:15; Admin Dose 1 PKT; Start 03/17/18 at 09:00 Acetaminophen (Tylenol Tab) 650 mg Q6H PRN PO MILD PAIN(1-3)OR ELEVATED TEMP Last administered on 03/19/18at 07:55; Admin Dose 650 MG; Start 03/17/18 at 14:00 Hydralazine HCl (Apresoline) 25 mg Q6H PRN PO ELEVATED SYSTOLIC BP Last administered on 03/19/18at 18:13; Admin Dose 25 MG; Start 03/18/18 at 05:30 Heparin Sodium (Porcine) (Heparin (1000 Units/ml)) 2,300 unit AFTER DIALYSIS CATHETER Last administered on 04/01/18 13:57; Admin Dose 2,300 UNIT; Start 03/18/18 at 22:00 Collagenase (Santyl) 1 applic DAILY TOP Last administered on 04/02/18 09:15; Admin Dose 1 APPLIC; Start 03/19/18 at 19:30 Collagenase (Santyl) 1 applic PRN PRN TOP WHEN SOILED Last administered on 03/23/18 21:45; Admin Dose 1 APPLIC; Start 03/19/18 at 19:30 Hydralazine HCl (Apresoline) 10 mg Q6H PRN IV elevated BP Last administered on 03/26/18 18:00; Admin Dose 10 MG; Start 03/19/18 at 19:30 Epoetin Clinton (Epogen (Esrd)) 10,000 units MoWeFr@17 SC Last administered on 17:32; Admin Dose 10,000 UNITS; Start 03/22/18 at 17:00 Multivit/Ca Carb/ B Cmplx/FA/Prenat (Alena-Martin) 1 tab DAILY PO Last administered on 04/02/18 09:15; Admin Dose 1 TAB; Start 03/24/18 at 09:00 Morphine Sulfate (morphine) 10 mg Q4H PRN PO SEVERE PAIN LEVEL 7-10 Last administered on 04/02/18 03:27; Admin Dose 10 MG; Start 03/24/18 at 16:30 Quetiapine Fumarate (Seroquel) 300 mg QHS PO Last administered on 04/01/18 20:20; Admin Dose 300 MG; Start 03/27/18 at 21:00 Citalopram Hydrobromide (Celexa) 20 mg DAILY PO Last administered on 04/02/18 09:16; Admin Dose 20 MG; Start 03/27/18 at 10:30 Buspirone HCl (Buspar) 10 mg BID PO Last administered on 04/02/18 09:16; Admin Dose 10 MG; Start 03/27/18 at 10:30 Diagnostic Test (Pha) (Accu-Chek) 1 ea 02 XX ; Start 03/30/18 at 02:00 Cholecalciferol (Vitamin D) 2,000 unit DAILY PO Last administered on 04/02/18 09:16; Admin Dose 2,000 UNIT; Start 03/30/18 at 09:30 Insulin Aspart (Novolog Insulin Pen) (Adult SC Insulin - Moder... WITH MEALS BEDTIME SC ; Start 03/30/18 at 12:00 Ceftriaxone Sodium 50 ml @ 100 mls/hr Q24H IVPB Last administered on 04/01/18 09:53; Admin Dose 100 MLS/HR; Start 04/01/18 at 09:30 CECILE LIVE Apr 02, 2018 14:33
--- NOTE | 2018-04-02 16:28 | NUR ---
Case Management note: Per Dr Bledsoe, dialysis tomorrow. Creat 3.06 Alex and I social worker school spoke to patient and re instated the discharge planning regarding contact with family, i.e. daughters and brother in prior note. No resolution with this plan because of non communication with family and a permanent residence for the patient Please see Alex's social work notes I asked for SNF placement and a PT/OT eval. Patient has midline and is on Ceftriaxone IV Called [facility] @ [phone]; info faxed PLEASE SEE PRIOR NOTES Lisa Harden is reviewing this discharge plan with the Director. [phone]/EXT 498 Marketing Rep Madyson EXT; [phone]
[2018-04-02] MEDS: EPOETIN 10000 UNITS/1 ML INJ (ESRD) SC SCH (17:19)
--- NOTE | 2018-04-02 18:43 | NUR ---
End of shift report Confirmation number for HD tomorrow is [id number], scheduled for tomorrow at 0800. Pt in stable condition, and discharge pending. Called PT office and spoke with Dameon regarding PT/OT evaluation. Will continue to monitor.
[2018-04-02 19:55] VITALS: BP 119/64; PULSE 69; RESP 17
[2018-04-03] VITALS (19 sets, daily range): BP systolic 113–194; BP diastolic 65–96; PULSE 68–82; RESP 18
[2018-04-03] MEDS: ACCU-CHEK XX SCH (01:40)
[2018-04-03] MEDS: DIPHENHYDRAMINE 50 MG INJ IV PRN ×4 (04:45→23:24)
--- NOTE | 2018-04-03 04:55 | NUR ---
Shift Summary Patient stable throughout shift. VSS. Blood glucose controlled. HS snack provided. Ambulates a few steps to bedside commode with assist. Assisted patient repositioning every 2 hours. Patient's dressing to sacrococcyx C/D/I, on low air loss mattress. HD scheduled for today. PT/OT evaluation pending. Patient's safety maintained. Will endorse POC to oncoming nurse.
[2018-04-03] MEDS: PANTOPRAZOLE (EC) 40 MG TAB PO SCH (06:23)
[2018-04-03] MEDS: Insulin NOVOLOG SS MODERATE Algorithm (SS with meals and bedtime) SC SCH ×4 (08:00→21:00)
[2018-04-03] MEDS: SEVELAMER CARBONATE 0.8 GM PKT PO SCH ×3 (08:04→17:08)
--- NOTE | 2018-04-03 08:17 | PN ---
DATE: 04/03/2018 SUBJECTIVE: The patient is stable. No events overnight. No fevers, chills, nausea, or vomiting. OBJECTIVE: VITAL SIGNS: Blood pressure is 156/71, pulse 73, respirations 18, temperature 98.4. HEENT: Head is normocephalic. NECK: Supple. HEART: Regular rate. LUNGS: Show diminished breath sounds at the base. ABDOMEN: Soft, nontender to palpation without rebound or guarding. EXTREMITIES: Negative for clubbing, cyanosis, no edema. DERMATOLOGIC: No rashes. MUSCULOSKELETAL: No joint effusion. NEUROLOGIC: No change in exam. MEDICATIONS: The patient's medications have been reviewed. LABORATORY DATA: Laboratory data has been reviewed from 04/02/2018. ASSESSMENT AND PLAN: 1. End-stage renal disease. The patient is scheduled for dialysis today. We will dialyze 3 hours 3 k bath, calcium 2.5. 2. Anemia. Continue to monitor hemoglobin and hematocrit levels. Continue Epogen. 3. Mineral bone disorder. Monitor calcium and phosphorus levels. Continue vitamin D analogs. 4. Volume overload, improving. Continue ultrafiltration dialysis. 5. Liver disease. Continue to monitor. 6. Hypertension. Continue current blood pressure regimen. 7. Gastritis. Continue proton pump inhibitor. 8. Depressive disorder. Continue Seroquel. 9. Ascites, status post paracentesis. Continue IV antibiotics. Dictated By: SHILO LIU DO NR/NTS Conf#: [id number] DID#: [id number] CC: JF KAISER MD; RAYMUNDO DOUGLASS MD;*EndCC*
[2018-04-03] MEDS: BUSPIRONE 10 MG TAB PO SCH ×2 (08:42→23:18)
[2018-04-03] MEDS: CITALOPRAM 20 MG TAB PO SCH (08:42)
[2018-04-03] MEDS: FUROSEMIDE 40 MG TAB PO SCH ×2 (08:42→23:19)
[2018-04-03] MEDS: LEVETIRACETAM 500 MG TAB PO SCH ×2 (08:42→23:18)
[2018-04-03] MEDS: NIFEdipine (XL) 30 MG TAB PO SCH (08:43)
[2018-04-03] MEDS: LABETALOL 200 MG TAB PO SCH ×2 (08:43→21:00)
[2018-04-03] MEDS: CHOLESTYRAMINE 4 GM PACKET PO SCH (08:43)
[2018-04-03] MEDS: MULTIVIT/CA CARB/B CMPLX/FA TAB PO SCH (08:43)
[2018-04-03] MEDS: CALCITRIOL 0.25 MCG CAP PO SCH (08:43)
[2018-04-03] MEDS: QUETIAPINE 100 MG TAB PO SCH ×2 (08:44→23:20)
[2018-04-03] MEDS: CHOLECALCIFEROL 2,000 UNIT CAP PO SCH (08:44)
[2018-04-03] MEDS: COLLAGENASE 5 GM (UD JAR) TOP SCH (09:00)
[2018-04-03] MEDS: BALSAM PERU/CASTOR OIL 60 GM TUBE TOP SCH (09:00)
[2018-04-03] MEDS ORDERED: morphine 2 MG INJ IV PRN (12:00)
--- NOTE | 2018-04-03 12:03 | PN ---
Date/Time of Note Date/Time of Note DATE: 04/03/18 TIME: 12:02 Assessment/Plan VTE Prophylaxis Risk score (from [facility] [place]0 risk: 4 SCD applied (from [facility] [place]): No SCD contraindicated: other Pharmacological prophylaxis: heparin Lines/Catheters IV Catheter Type (from [facility]): Mid Line Urinary Cath still in place: No (hemodialysis patient) Assessment/Plan Hospital Course -Abdominal pain status post ERCP with sphincterectomy, removal of stone and stenting by Dr. Webb. -Chronic liver disease, likely cirrhotic. -Anasarca and ascites, s/p paracentesis on 03/15, 03/19, 03/26, 03/30. -Hemodialysis dependent end-stage renal disease. Continue hemodialysis per nephrology. Dr. Bledsoe is following in nephrology consultation -Hypertension, continue Procardia and hydralazine as needed. -Diabetes, NovoLog per mild algorithm sliding scale -Seizure disorder, continue Keppra -Gastritis, continue PPI -Anemia of chronic disease, continue Epogen -Depressive disorder with psychosis. Continue Seroquel. Result Diagram: 04/03/1825 04/03/18 0925 Results 24hrs Laboratory Tests Test 04/02/18 12:44 04/02/18 17:23 04/02/18 20:30 04/03/18 08:04 Bedside Glucose 129 97 113 105 Test 04/03/18 09:25 White Blood Count 9.5 Red Blood Count 3.46 L Hemoglobin 8.5 L Hematocrit 27.2 L Mean Corpuscular 78.6 L Volume Mean Corpuscular 24.6 L Hemoglobin Mean Corpuscular 31.3 L Hemoglobin Concent Red Cell 18.2 H Distribution Width Platelet Count 212 # Mean Platelet Volume 9.2 Immature 0.400 Granulocytes % Neutrophils % 63.9 Lymphocytes % 19.3 Monocytes % 9.8 Eosinophils % 5.9 Basophils % 0.7 Nucleated Red Blood 0.0 Cells % Immature 0.040 H Granulocytes # Neutrophils # 6.0 Lymphocytes # 1.8 Monocytes # 0.9 Eosinophils # 0.6 H Basophils # 0.1 Nucleated Red Blood 0.0 Cells # Sodium Level 136 Potassium Level 4.4 Chloride Level 102 Carbon Dioxide Level 25 Anion Gap 9 Blood Urea Nitrogen 29 #H Creatinine 4.36 #H Est Glomerular 13 L Filtrat Rate mL/min Glucose Level 87 Calcium Level 8.6 Hepatitis B Surface NEGATIVE Antigen Subjective 24 Hr Interval Summary Free Text/Dictation Patient complains of pain unhelped by oral pain medication Exam/Review of Systems Vital Signs Vitals Vital Signs Date Temp Pulse Resp B/P (MAP) Pulse Ox O2 O2 Flow FiO2 Time Delivery Rate 04/03/18 69 11:30 04/03/18 18 127/86 98 Room Air 09:30 (100) 04/03/18 98.0 07:54 Intake and Output 04/02/18 04/02/18 04/03/18 1515:00 23:00 07:00 IntakeIntake Total 50 ml 120 ml BalanceBalance 50 ml 120 ml Exam Constitutional: well developed Head: normocephalic, atraumatic Neck: supple Respiratory: diminished breath sounds Cardiovascular: regular rate and rhythm Gastrointestinal: soft, non-tender Extremities: normal pulses Medications Medications Current Medications Ondansetron HCl (Zofran Inj) 4 mg Q6H PRN IV NAUSEA AND/OR VOMITING Last administered on 03/16/18 22:40; Admin Dose 4 MG; Start 03/16/18 at 18:30 Diphenhydramine HCl (Benadryl) 25 mg Q6H PRN IV ITCHING Last administered on 04/03/18 11:04; Admin Dose 25 MG; Start 03/16/18 at 18:30 Clonidine (Catapres) 0.1 mg Q6H PRN PO ELEVATED BLOOD PRESSURE Last administered on 03/18/18at 02:50; Admin Dose 0.1 MG; Start 03/16/18 at 20:30 Calcitriol (Rocaltrol) 0.25 mcg DAILY PO Last administered on 04/02/18 09:15; Admin Dose 0.25 MCG; Start 03/17/18 at 09:00 Furosemide (Lasix) 40 mg BID PO Last administered on 04/02/18 20:27; Admin Dose 40 MG; Start 03/16/18 at 21:00 Levetiracetam (Keppra) 500 mg BID PO Last administered on 04/02/18 20:31; Admin Dose 500 MG; Start 03/16/18 at 21:00 Nifedipine (Procardia Xl) 30 mg DAILY PO Last administered on 04/02/18 09:16; Admin Dose 30 MG; Start 03/17/18 at 09:00 Pantoprazole (Protonix Tab) 40 mg AC BREAKFAST PO Last administered on 04/03/18 06:23; Admin Dose 40 MG; Start 03/17/18 at 07:00 Quetiapine Fumarate (Seroquel) 300 mg DAILY PO Last administered on 04/02/18 09:16; Admin Dose 300 MG; Start 03/17/18 at 09:00 Sevelamer Carbonate (Renvela) 1.6 gm WITH MEALS PO Last administered on 08:04; Admin Dose 1.6 GM; Start 03/17/18 at 08:00 Miscellaneous Information 1 ea NOTE XX ; Start 03/16/18 at 21:30 Glucose (Glutose) 15 gm Q15M PRN PO DECREASED GLUCOSE; Start 03/16/18 at 21:30 Glucose (Glutose) 22.5 gm Q15M PRN PO DECREASED GLUCOSE; Start 03/16/18 at 21:30 Dextrose (D50w Syringe) 25 ml Q15M PRN IV DECREASED GLUCOSE; Start 03/16/18 at 21:30 Dextrose (D50w Syringe) 50 ml Q15M PRN IV DECREASED GLUCOSE; Start 03/16/18 at 21:30 Glucagon (Glucagen) 1 mg Q15M PRN IM DECREASED GLUCOSE; Start 03/16/18 at 21:30 Glucose (Glutose) 15 gm Q15M PRN BUCCAL DECREASED GLUCOSE; Start 03/16/18 at 21:30 Labetalol HCl (Normodyne) 200 mg BID PO Last administered on 04/02/18 20:32; Admin Dose 200 MG; Start 03/16/18 at 22:00 Loperamide HCl (Imodium Cap) 2 mg Q6H PRN PO diarrhea Last administered on 03/20/18at 01:12; Admin Dose 2 MG; Start 03/17/18 at 03:30 Cholestyramine Resin (Questran) 1 pkt DAILY PO Last administered on 04/02/18 09:15; Admin Dose 1 PKT; Start 03/17/18 at 09:00 Acetaminophen (Tylenol Tab) 650 mg Q6H PRN PO MILD PAIN(1-3)OR ELEVATED TEMP Last administered on 03/19/18at 07:55; Admin Dose 650 MG; Start 03/17/18 at 14:00 Hydralazine HCl (Apresoline) 25 mg Q6H PRN PO ELEVATED SYSTOLIC BP Last administered on 03/19/18 18:13; Admin Dose 25 MG; Start 03/18/18 at 05:30 Heparin Sodium (Porcine) (Heparin (1000 Units/ml)) 2,300 unit AFTER DIALYSIS CATHETER Last administered on 04/01/18 13:57; Admin Dose 2,300 UNIT; Start 03/18/18 at 22:00 Collagenase (Santyl) 1 applic DAILY TOP Last administered on 04/02/18 09:15; Admin Dose 1 APPLIC; Start 03/19/18 at 19:30 Collagenase (Santyl) 1 applic PRN PRN TOP WHEN SOILED Last administered on 03/23/18 21:45; Admin Dose 1 APPLIC; Start 03/19/18 at 19:30 Hydralazine HCl (Apresoline) 10 mg Q6H PRN IV elevated BP Last administered on 03/26/18 18:00; Admin Dose 10 MG; Start 03/19/18 at 19:30 Epoetin Clinton (Epogen (Esrd)) 10,000 units MoWeFr@17 SC Last administered on 04/02/18 17:19; Admin Dose 10,000 UNITS; Start 03/22/18 at 17:00 Multivit/Ca Carb/ B Cmplx/FA/Prenat (Alena-Martin) 1 tab DAILY PO Last administered on 04/02/18 09:15; Admin Dose 1 TAB; Start 03/24/18 at 09:00 Morphine Sulfate (morphine) 10 mg Q4H PRN PO SEVERE PAIN LEVEL 7-10 Last administered on 04/02/18 03:27; Admin Dose 10 MG; Start 03/24/18 at 16:30 Quetiapine Fumarate (Seroquel) 300 mg QHS PO Last administered on 04/02/18 20:32; Admin Dose 300 MG; Start 03/27/18 at 21:00 Citalopram Hydrobromide (Celexa) 20 mg DAILY PO Last administered on 04/02/18 09:16; Admin Dose 20 MG; Start 03/27/18 at 10:30 Buspirone HCl (Buspar) 10 mg BID PO Last administered on 04/02/18 20:31; Admin Dose 10 MG; Start 03/27/18 at 10:30 Diagnostic Test (Pha) (Accu-Chek) XX ; Start 03/30/18 at 02:00 Cholecalciferol (Vitamin D) 2,000 unit DAILY PO Last administered on 04/02/18at 09:16; Admin Dose 2,000 UNIT; Start 03/30/18 at 09:30 Insulin Aspart (Novolog Insulin Pen) (Adult SC Insulin - Moder... WITH MEALS BEDTIME SC ; Start 03/30/18 at 12:00 Ceftriaxone Sodium 50 ml @ 100 mls/hr Q24H IVPB Last administered on 04/02/18at 14:47; Admin Dose 100 MLS/HR; Start 04/01/18 at 09:30 JF KAISER Apr 03, 2018 12:03
[2018-04-03] MEDS: CEFTRIAXONE 1 GM/NS 50 ML IVPB SCH (12:25)
[2018-04-03] MEDS: HEPARIN 1000 UNITS/ML 10 ML INJ CATHETER SCH (13:04)
[2018-04-03] MEDS: morphine LIQ (10 MG/5 ML) CUP PO PRN (13:37)
[2018-04-03] MEDS: ONDANSETRON 4 MG INJ IV PRN (13:37)
--- NOTE | 2018-04-03 14:50 | NUR ---
PT [facility] Patient: Abiodun Isidro : 1965 Age/Sex: 52/F Unit#: [id number] Room/Bed: 5539/A User: Donis Mcnair PT Date: 04/03/18 13:48 Type: PT Technical Record Therapy day number 1 Evaluation Start Time 13:48 Evaluation Total Time 0 min Subjective Denies pain Pain Scale NUMERIC Pain Intensity 0 (0-10) Patient Stated Goal for Pain Relief 0 (0-10) Pain Level Comment denies pain Pre Treatment Vital Signs Stable Yes Supine to Sit Stand by Assist Transfer Sit to Stand Ability Contact Guard Assist Bed Mobility Sit to Supine Stand by Assist Bed Transfer Ability Contact Guard Assist Chair Transfer Ability Contact Guard Assist Sitting Tolerance 8 min Additional Mobility Comments using FWW Patient uses wheelchair Not Applicable Gait Assist Levels Contact Guard Assist Assistive Devices Front Wheel Walker Ambulation Distance 10 feet Additional Gait Comments forward flexed posture, decreased step length B, slow tyler Static Sitting Balance Fair plus Dynamic Sitting Balance Fair plus Standing Static Balance Fair plus Dynamic Standing Balance Fair Additional Balance Assessments Comments with FWW Safety Judgement Fair Activity Tolerance Poor Post Treatment Pain Intensity 0 0-10 Variance Documentation SEE PT EVAL NOTE PT Technical Record Comment PT EVAL Pt is a 52 yo F with PMH of DM, HTN, ESRD on dialysis, depression, seizure disorder, gastritis who left AMA on 03/16 and returned within a few hours with SOB and abdominal pain 2/2 ascities. Pt was previously admitted for similar symptoms. Pt S/P paracentesis 03/15, 03/19, 03/26, 03/30 and s/p ERCP with sphincterectomy and removal of stone and stenting. Pt received in 5E, med/surg. Precautions: Fall precautions PLOF: Per EMR of previous admit, pt is homeless and has been living with dtr and friends prior to admission to [facility]. Pt reports her dtr lives in a 2nd floor apartment with no elevator access. Ambulatory with FWW and SPC but pt no longer owns these DME as she lost them when she was evicted. CLOF: AGUSTO Chicas cleared pt for PT evaluation. Pt received seated on toilet in bathroom. Transfer and gait assessment as described above. Once seated at EOB, pt returned to supine position with SBA. Pt then refused any further activity due to fatigue and weakness. Pt educated on importance of participating in further gait, strength, and ROM assessment/training but pt continued to adamantly refuse, stating she was too tired. Pt left semi-supine in bed, bed alarm activated, all needs in reach, no signs of distress. RN notified of pt's status. Recommendation: Pt presents with low activity tolerance, generalized weakness, and easily fatigues, only able to tolerate ambulation of ~10' this date with use of FWW. Further pt with mild gait instability with amb. Pt will benefit from additional skilled PT services during hospital stay to improve safety awareness, endurance and strength. D/c recommendation to post-acute setting (SNF) due to debility, poor endurance, and balance deficits. Plan: Continue c PT POC (daily x 5), advance activity as tolerated
--- NOTE | 2018-04-03 16:38 | NUR ---
End of shift report 1.5L out and approx. 200ml of blood loss reported by HD RN during HD. STAT H/H ordered and result posted: .6. Benadryl given once so far and effective. Initially pt refused wound care, then requested it in the evening. Oral Morphine given once. Will continue to monitor.
--- NOTE | 2018-04-03 20:00 | NUR ---
PT WAS ASKING FOR HER BENADRYL IV;EXPLAINED THAT IT WAS GIVEN @ 1700 EARLIER. PT DENIED THAT IT WAS GIVEN TO HER AND WAS UPSET. PT WANTED TO GET OUT OF THE HOSPITAL. EXPLAINED TO HER THAT WE CAN GIVE HER THE NEXT DOSE WHEN IT'S DUE AND SHE CAN STILL STAY HERE. RE-CHECKED WELL HER BP WHICH WAS ALREADY ELEVATED EARLIER. SHE REFUSES HER APRESOLINE IV;WON'T ANSWER THE RN WHEN SHE'S ABOUT TO GIVE HER THE MEDICATION. PT REFUSES TO GIVE HER ARM FOR SCANNING,KEPT HER EYES CLOSED AND WON'T ANSWER FRO SEVERAL ATTEMPTS. TOLD HER THAT WE NEED TO IMPROVE HER BP TO AVOID COMPLICATIONS SUCH STROKE. PT ONLY SAID THAT SHE'S FINE AND SHE'S WAITING FOR HER DAUGHTER TO COME AND PICK HER UP. TOLD PT THAT WE WILL BE BACK AND CHECK ON HER AGAIN AND TO CALL US FOR WHATEVER SHE NEEDS. INFORMED PRIMARY RN AND ACCESS CLINICIAN.
--- NOTE | 2018-04-03 21:48 | NUR ---
Pt refuses due medication. Pt was upset that she can't get her benadryl until 11 pm; she said she will take her other medications when it's time, at 11 pm. Pt allowed me to check her BP, which was 194/89. She refused IV hydralazine. hand mexican food maker notified.
[2018-04-03] MEDS: hydrALAzine 20 MG INJ IV PRN (21:51)
--- NOTE | 2018-04-03 21:51 | NUR ---
PT'S BP STILL ELEVATED;EXPLAINED TO PT THE IMPORTANCE OF IMPROVING THE BLOOD PRESSURE AND WHAT POSSIBLE NEGATIVE EFFECTS IT CAN DO TO HER;PT FINALLY AGREED TO TAKE HER BP MED. APRESOLINE IV GIVEN,WILL MONITOR;STILL REFUSING THE REST OF HER MEDS. PRIMARY RN MADE AWARE.
[2018-04-03] MEDS ORDERED: VITAMIN A & D 5 GM OINT PACKET TOP ONE (23:35)
[2018-04-04] MEDS ORDERED: DIPHENHYDRAMINE 50 MG INJ IV ONE
[2018-04-04] MEDS: ACCU-CHEK XX SCH (01:50)
[2018-04-04 02:00] VITALS: BP 139/67; PULSE 71; RESP 18
--- NOTE | 2018-04-04 05:58 | NUR ---
NOLAN Pt refused medication until 11 pm when she could get benadryl. Pt complained of pain, but refused pain medication. Pt allowed iv hydralizine to be given for high BP; given by charge authorizer. Dr. Tinoco notified that pt complained of itchiness less than one hour after benadryl admin; increased dosage. Pt complained of constipation, had two small BM. Addendum: 04/04/18 at 0601 by MAYLIN SOUZA RN Bed alarm on, call light within reach, pt instructed to use call light for assistance. Addendum: 04/04/18 at 0702 by MAYLIN SOUZA RN Pt medicated for pain x 1, pt given benadryl x 3 during shift for itchiness (25 mg, 25 mg, 50 mg) (see emar)
[2018-04-04] MEDS: DIPHENHYDRAMINE 50 MG INJ IV PRN ×3 (06:25→18:05)
[2018-04-04] MEDS: PANTOPRAZOLE (EC) 40 MG TAB PO SCH (06:25)
[2018-04-04] MEDS: morphine LIQ (10 MG/5 ML) CUP PO PRN ×3 (06:45→19:42)
[2018-04-04 08:00] VITALS: BP 158/80; PULSE 62; RESP 17
[2018-04-04] MEDS: Insulin NOVOLOG SS MODERATE Algorithm (SS with meals and bedtime) SC SCH ×4 (08:00→20:30)
[2018-04-04] MEDS: LEVETIRACETAM 500 MG TAB PO SCH ×2 (08:38→20:21)
[2018-04-04] MEDS: NIFEdipine (XL) 30 MG TAB PO SCH (08:38)
[2018-04-04] MEDS: CHOLECALCIFEROL 2,000 UNIT CAP PO SCH (08:38)
[2018-04-04] MEDS: CHOLESTYRAMINE 4 GM PACKET PO SCH (08:38)
[2018-04-04] MEDS: CEFTRIAXONE 1 GM/NS 50 ML IVPB SCH (08:38)
[2018-04-04] MEDS: BUSPIRONE 10 MG TAB PO SCH ×2 (08:38→20:20)
[2018-04-04] MEDS: CITALOPRAM 20 MG TAB PO SCH (08:38)
[2018-04-04] MEDS: SEVELAMER CARBONATE 0.8 GM PKT PO SCH ×3 (08:38→17:11)
[2018-04-04] MEDS: COLLAGENASE 5 GM (UD JAR) TOP SCH (08:39)
[2018-04-04] MEDS: QUETIAPINE 100 MG TAB PO SCH ×2 (08:39→20:22)
[2018-04-04] MEDS: CALCITRIOL 0.25 MCG CAP PO SCH (08:39)
[2018-04-04] MEDS: MULTIVIT/CA CARB/B CMPLX/FA TAB PO SCH (08:39)
[2018-04-04] MEDS: LABETALOL 200 MG TAB PO SCH ×2 (08:39→20:21)
[2018-04-04] MEDS: BALSAM PERU/CASTOR OIL 60 GM TUBE TOP SCH (08:40)
--- NOTE | 2018-04-04 09:14 | PN ---
DATE: 04/04/2018 SUBJECTIVE: The patient is stable, no events overnight. No fevers, chills, nausea, vomiting. OBJECTIVE: VITAL SIGNS: Blood pressure is 127/86, pulse 82, respiration 18, temperature 98.1. HEENT: Head is normocephalic. NECK: Supple. HEART: Regular rate. LUNGS: Show diminished breath sounds at the base. ABDOMEN: Soft, nontender to palpation without rebound or guarding. EXTREMITIES: Negative for clubbing, cyanosis, no edema. DERMATOLOGIC: No rashes. MUSCULOSKELETAL: No joint effusion. NEUROLOGIC: No change in exam. MEDICATIONS: Reviewed. LABORATORY DATA: From 04/04/2018 is pending. ASSESSMENT AND PLAN: 1. End-stage renal disease. The patient had hemodialysis yesterday. Plan for dialysis tomorrow. 2. Anemia. Monitor H and H levels. Continue Epogen. 3. Mineral bone disorder, monitor calcium and phosphorus levels. Continue vitamin D analogs, phos b inders. 4. Volume overload, improving. 5. Liver disease. Continue current medical management. 6. Hypertension. Continue current blood pressure regimen. 7. Gastritis. Continue proton pump inhibitor. 8. Depressive disorder. Continue Seroquel. 9. Ascites, status post paracentesis. Dictated By: SHILO LIU DO NR/NTS Conf#: [id number] DID#: [id number] CC: JF KAISER MD; RAYMUNDO DOUGLASS MD;*EndCC*
--- NOTE | 2018-04-04 09:46 | NUR ---
Called [facility] for HD order for tomorrow AM. Spoke to Aleta. Confirmation number: [id number]
--- NOTE | 2018-04-04 12:45 | PN ---
Date/Time of Note Date/Time of Note DATE: 04/04/18 TIME: 12:45 Assessment/Plan VTE Prophylaxis Risk score (from Ns)>0 risk: 3 SCD applied (from Nsg): Yes Pharmacological prophylaxis: LMWH Lines/Catheters IV Catheter Type (from Nrsg): Mid Line Urinary Cath still in place: No (hemodialysis patient) Assessment/Plan Hospital Course -Abdominal pain status post ERCP with sphincterectomy, removal of stone and stenting by Dr. Webb. -Chronic liver disease, likely cirrhotic. -Anasarca and ascites, s/p paracentesis on 03/15, 03/19, 03/26, 03/30. -Hemodialysis dependent end-stage renal disease. Continue hemodialysis per nephrology. Dr. Bledsoe is following in nephrology consultation -Hypertension, continue Procardia and hydralazine as needed. -Diabetes, NovoLog per mild algorithm sliding scale -Seizure disorder, continue Keppra -Gastritis, continue PPI -Anemia of chronic disease, continue Epogen -Depressive disorder with psychosis. Continue Seroquel. Result Diagram: 04/03/18 1521 04/03/18 0925 Results 24hrs Laboratory Tests Test 04/03/18 15:21 04/03/18 17:07 04/03/18 23:17 04/04/18 08:28 Hemoglobin 9.1 L Hematocrit 28.6 L Bedside Glucose 128 81 101 Subjective 24 Hr Interval Summary Free Text/Dictation Patient has no complaints Exam/Review of Systems Vital Signs Vitals Vital Signs Date Temp Pulse Resp B/P (MAP) Pulse Ox O2 O2 Flow FiO2 Time Delivery Rate 04/04/18 98.2 62 17 158/80 95 Room Air 08:00 (106) Intake and Output 04/03/18 04/03/18 04/04/18 1515:00 23:00 07:00 IntakeIntake Total 480 ml 250 ml OutputOutput Total 2000 ml BalanceBalance -1520 ml 250 ml Exam Constitutional: well developed Head: normocephalic, atraumatic Neck: supple Respiratory: diminished breath sounds Cardiovascular: regular rate and rhythm Gastrointestinal: soft, non-tender Extremities: normal pulses Medications Medications Current Medications Ondansetron HCl (Zofran Inj) 4 mg Q6H PRN IV NAUSEA AND/OR VOMITING Last administered on 04/03/18at 13:37; Admin Dose 4 MG; Start 03/16/18 at 18:30 Clonidine (Catapres) 0.1 mg Q6H PRN PO ELEVATED BLOOD PRESSURE Last administered on 03/18/18at 02:50; Admin Dose 0.1 MG; Start 03/16/18 at 20:30 Calcitriol (Rocaltrol) 0.25 mcg DAILY PO Last administered on 04/04/18 08:39; Admin Dose 0.25 MCG; Start 03/17/18 at 09:00 Levetiracetam (Keppra) 500 mg BID PO Last administered on 04/04/18 08:38; Admin Dose 500 MG; Start 03/16/18 at 21:00 Nifedipine (Procardia Xl) 30 mg DAILY PO Last administered on 04/04/18 08:38; Admin Dose 30 MG; Start 03/17/18 at 09:00 Pantoprazole (Protonix Tab) 40 mg AC BREAKFAST PO Last administered on 04/04/18 06:25; Admin Dose 40 MG; Start 03/17/18 at 07:00 Quetiapine Fumarate (Seroquel) 300 mg DAILY PO Last administered on 04/04/18 08:39; Admin Dose 300 MG; Start 03/17/18 at 09:00 Sevelamer Carbonate (Renvela) 1.6 gm WITH MEALS PO Last administered on 12:40; Admin Dose 1.6 GM; Start 03/17/18 at 08:00 Miscellaneous Information 1 ea NOTE XX ; Start 03/16/18 at 21:30 Glucose (Glutose) 15 gm Q15M PRN PO DECREASED GLUCOSE; Start 03/16/18 at 21:30 Glucose (Glutose) 22.5 gm Q15M PRN PO DECREASED GLUCOSE; Start 03/16/18 at 21:30 Dextrose (D50w Syringe) 25 ml Q15M PRN IV DECREASED GLUCOSE; Start 03/16/18 at 21:30 Dextrose (D50w Syringe) 50 ml Q15M PRN IV DECREASED GLUCOSE; Start 03/16/18 at 21:30 Glucagon (Glucagen) 1 mg Q15M PRN IM DECREASED GLUCOSE; Start 03/16/18 at 21:30 Glucose (Glutose) 15 gm Q15M PRN BUCCAL DECREASED GLUCOSE; Start 03/16/18 at 21:30 Labetalol HCl (Normodyne) 200 mg BID PO Last administered on 04/04/18 08:39; Admin Dose 200 MG; Start 03/16/18 at 22:00 Loperamide HCl (Imodium Cap) 2 mg Q6H PRN PO diarrhea Last administered on 03/20/18 01:12; Admin Dose 2 MG; Start 03/17/18 at 03:30 Cholestyramine Resin (Questran) 1 pkt DAILY PO Last administered on 04/04/18 08:38; Admin Dose 1 PKT; Start 03/17/18 at 09:00 Acetaminophen (Tylenol Tab) 650 mg Q6H PRN PO MILD PAIN(1-3)OR ELEVATED TEMP Last administered on 03/19/18 07:55; Admin Dose 650 MG; Start 03/17/18 at 14:00 Hydralazine HCl (Apresoline) 25 mg Q6H PRN PO ELEVATED SYSTOLIC BP Last administered on 03/19/18 18:13; Admin Dose 25 MG; Start 03/18/18 at 05:30 Heparin Sodium (Porcine) (Heparin (1000 Units/ml)) 2,300 unit AFTER DIALYSIS CATHETER Last administered on 04/03/18 13:04; Admin Dose 2,300 UNIT; Start 03/18/18 at 22:00 Collagenase (Santyl) 1 applic DAILY TOP Last administered on 04/04/18 08:39; Admin Dose 1 APPLIC; Start 03/19/18 at 19:30 Collagenase (Santyl) 1 applic PRN PRN TOP WHEN SOILED Last administered on 03/23/18 21:45; Admin Dose 1 APPLIC; Start 03/19/18 at 19:30 Hydralazine HCl (Apresoline) 10 mg Q6H PRN IV elevated BP Last administered on 04/03/18 21:51; Admin Dose 10 MG; Start 03/19/18 at 19:30 Epoetin Clinton (Epogen (Esrd)) 10,000 units MoWeFr@17 SC Last administered on 04/02/18 17:19; Admin Dose 10,000 UNITS; Start 03/22/18 at 17:00 Multivit/Ca Carb/ B Cmplx/FA/Prenat (Alena-Martin) 1 tab DAILY PO Last administered on 04/04/18 08:39; Admin Dose 1 TAB; Start 03/24/18 at 09:00 Quetiapine Fumarate (Seroquel) 300 mg QHS PO Last administered on 04/03/18 23:20; Admin Dose 300 MG; Start 03/27/18 at 21:00 Citalopram Hydrobromide (Celexa) 20 mg DAILY PO Last administered on 04/04/18 08:38; Admin Dose 20 MG; Start 03/27/18 at 10:30 Buspirone HCl (Buspar) 10 mg BID PO Last administered on 04/04/18 08:38; Admin Dose 10 MG; Start 03/27/18 at 10:30 Diagnostic Test (Pha) (Accu-Chek) 1 ea 02 XX ; Start 03/30/18 at 02:00 Cholecalciferol (Vitamin D) 2,000 unit DAILY PO Last administered on 04/04/18 08:38; Admin Dose 2,000 UNIT; Start 03/30/18 at 09:30 Insulin Aspart (Novolog Insulin Pen) (Adult SC Insulin - Moder... WITH MEALS BEDTIME SC ; Start 03/30/18 at 12:00 Ceftriaxone Sodium 50 ml @ 100 mls/hr Q24H IVPB Last administered on 04/04/18 08:38; Admin Dose 100 MLS/HR; Start 04/01/18 at 09:30 Morphine Sulfate (morphine) 10 mg Q4H PRN PO SEVERE PAIN LEVEL 7-10 Last administered on 04/04/18 06:45; Admin Dose 10 MG; Start 04/03/18 at 13:30 Diphenhydramine HCl (Benadryl) 50 mg Q6H PRN IV itching Last administered on 04/04/18 06:25; Admin Dose 50 MG; Start 04/04/18 at 06:00 JF KAISER Apr 04, 2018 12:45
[2018-04-04 14:00] VITALS: BP 166/81; PULSE 70; RESP 18
--- NOTE | 2018-04-04 17:21 | CONS ---
Date/Time of Note Date/Time of Note DATE: 04/04/18 TIME: 17:21 Assessment/Plan Assessment/Plan Assessment/Plan -secondary to ascites -Ascites fluid: WBC 1886 2. Diarrhea -O/P negative. C diff negative -improved 3. Mildly elevated lipase with mid abd pain radiating to back -resolved 4. Mild generalized small and large bowel wall thickening which per CT 03/01 could represent third spacing. 5. Hemorrhoids per pt 6. Mild hepatomegaly 7. Anemia, likely due to chronic disease -Ferritin high, Iron wnl, TIBC low, B12 wnl, folate wnl, FOB negative -no evidence of GI bleeding 8. End stage renal disease on HD 9. Cardiomegaly with mild lower lung pulmonary edema with small left effusion and mild diffuse ascites 10. Anasarca and ascites -s/p pracentesisi 03/15, 03/19, 03/26, 03/30 11. Diabetes 12. Hypertension 13. Elevated alk phos secondary to chronic liver disease 14. Mildly dilated biliary system with CBD measuring 10mm -s/p ercp 15. Chronic liver disease 16. Spontaneous bacterial peritonitis -started on cefotaxime 2 gm IV q 8 hours MRCP 03/18: 1. Enlarged liver with suggestion of mild liver surface nodularity. Chronic hepatic parenchymal disease is suspected. Diffusely decreased T2 signal inte nsity of the liver and spleen can represent hemosiderin deposition likely in the setting of secondary hemochromatosis. 2. Large volume ascites. 3. Wall thickening of the gallbladder without gallstones. This likely relates to presence of large volume ascites. 4. Wall thickening of multiple loops of small bowel may also relate to presence of ascites. 5. No intrahepatic biliary ductal dilatation. Mild extrahepatic biliary ductal dilatation measuring up to 10 mm in the mid common bile duct with gradual distal tapering. No filling defects along the course of the common bile duct within the limitations of this exam to represent choledocholithiasis. Plan: Recommend Cefotaxime 2 gm IV q 8 hours Pending ascites fluid cultures (fungal and afb included) Monitor LFTs and WBC Continue with diet as tolerated Continue with PPI PRN pain management Paracentesis prn Result Diagram: 04/03/18 1521 04/03/18 0925 Results 24hrs Laboratory Tests Test 04/03/18 23:17 04/04/18 08:28 1/13/19 12:42 Bedside Glucose 81 101 110 Consultation Date/Type/Reason Admit Date/Time Mar 16, 2018 at 14:01 Initial Consult Date 24 HR Interval Summary Constitutional: improved Exam/Review of Systems Vital Signs Vitals Vital Signs Date Temp Pulse Resp B/P (MAP) Pulse Ox O2 O2 Flow FiO2 Time Delivery Rate 04/04/18 97.8 70 18 166/81 100 14:00 (109) 04/04/18 Room Air 08:00 Intake and Output 04/03/18 04/03/18 04/04/18 1515:00 23:00 07:00 IntakeIntake Total 480 ml 250 ml OutputOutput Total 2000 ml BalanceBalance -1520 ml 250 ml Exam Constitutional: alert, oriented, well developed Psych: no complaints, nl mood/affect Head: normocephalic, atraumatic Eyes: nl conjunctiva, EOMI, nl lids, nl sclera, PERRL ENMT: nl external ears & nose, nl lips & teeth, nl nasal mucosa & septum Neck: supple, non-tender Respiratory: clear to auscultation, normal air movement Cardiovascular: regular rate and rhythm, nl pulses Gastrointestinal: soft, nl liver, spleen, non-tender Musculoskeletal: nl extremities to inspection, nl gait and stance Extremities: normal pulses Neurological: HEALTH INSURANCE AGENT II-XII intact, nl mental status, nl speech, nl strength Skin: nl turgor; No rash or lesions Lymph: nl lymph nodes Medications Medications Current Medications Ondansetron HCl (Zofran Inj) 4 mg Q6H PRN IV NAUSEA AND/OR VOMITING Last administered on 04/03/18at 13:37; Admin Dose 4 MG; Start 03/16/18 at 18:30 Clonidine (Catapres) 0.1 mg Q6H PRN PO ELEVATED BLOOD PRESSURE Last administered on 03/18/18at 02:50; Admin Dose 0.1 MG; Start 03/16/18 at 20:30 Calcitriol (Rocaltrol) 0.25 mcg DAILY PO Last administered on 04/04/18at 08:39; Admin Dose 0.25 MCG; Start 03/17/18 at 09:00 Levetiracetam (Keppra) 500 mg BID PO Last administered on 04/04/18at 08:38; Admin Dose 500 MG; Start 03/16/18 at 21:00 Nifedipine (Procardia Xl) 30 mg DAILY PO Last administered on 04/04/18 08:38; Admin Dose 30 MG; Start 03/17/18 at 09:00 Pantoprazole (Protonix Tab) 40 mg AC BREAKFAST PO Last administered on 04/04/18 06:25; Admin Dose 40 MG; Start 03/17/18 at 07:00 Quetiapine Fumarate (Seroquel) 300 mg DAILY PO Last administered on 04/04/18 08:39; Admin Dose 300 MG; Start 03/17/18 at 09:00 Sevelamer Carbonate (Renvela) 1.6 gm WITH MEALS PO Last administered on 04/04/18 17:11; Admin Dose 1.6 GM; Start 03/17/18 at 08:00 Miscellaneous Information 1 ea NOTE XX ; Start 03/16/18 at 21:30 Glucose (Glutose) 15 gm Q15M PRN PO DECREASED GLUCOSE; Start 03/16/18 at 21:30 Glucose (Glutose) 22.5 gm Q15M PRN PO DECREASED GLUCOSE; Start 03/16/18 at 21:30 Dextrose (D50w Syringe) 25 ml Q15M PRN IV DECREASED GLUCOSE; Start 03/16/18 at 21:30 Dextrose (D50w Syringe) 50 ml Q15M PRN IV DECREASED GLUCOSE; Start 03/16/18 at 21:30 Glucagon (Glucagen) 1 mg Q15M PRN IM DECREASED GLUCOSE; Start 03/16/18 at 21:30 Glucose (Glutose) 15 gm Q15M PRN BUCCAL DECREASED GLUCOSE; Start 03/16/18 at 21:30 Labetalol HCl (Normodyne) 200 mg BID PO Last administered on 04/04/18 08:39; Admin Dose 200 MG; Start 03/16/18 at 22:00 Loperamide HCl (Imodium Cap) 2 mg Q6H PRN PO diarrhea Last administered on 03/20/18at 01:12; Admin Dose 2 MG; Start 03/17/18 at 03:30 Cholestyramine Resin (Questran) 1 pkt DAILY PO Last administered on 04/04/18 08:38; Admin Dose 1 PKT; Start 03/17/18 at 09:00 Acetaminophen (Tylenol Tab) 650 mg Q6H PRN PO MILD PAIN(1-3)OR ELEVATED TEMP Last administered on 03/19/18 07:55; Admin Dose 650 MG; Start 03/17/18 at 14:00 Hydralazine HCl (Apresoline) 25 mg Q6H PRN PO ELEVATED SYSTOLIC BP Last a dministered on 03/19/18 18:13; Admin Dose 25 MG; Start 03/18/18 at 05:30 Heparin Sodium (Porcine) (Heparin (1000 Units/ml)) 2,300 unit AFTER DIALYSIS CATHETER Last administered on 04/03/18 13:04; Admin Dose 2,300 UNIT; Start 03/18/18 at 22:00 Collagenase (Santyl) 1 applic DAILY TOP Last administered on 04/04/18 08:39; Admin Dose 1 APPLIC; Start 03/19/18 at 19:30 Collagenase (Santyl) 1 applic PRN PRN TOP WHEN SOILED Last administered on 03/23/18 21:45; Admin Dose 1 APPLIC; Start 03/19/18 at 19:30 Hydralazine HCl (Apresoline) 10 mg Q6H PRN IV elevated BP Last administered on 04/03/18 21:51; Admin Dose 10 MG; Start 03/19/18 at 19:30 Epoetin Clinton (Epogen (Esrd)) 10,000 units MoWeFr@17 SC Last administered on 04/02/18 17:19; Admin Dose 10,000 UNITS; Start 03/22/18 at 17:00 Multivit/Ca Carb/ B Cmplx/FA/Prenat (Alena-Martin) 1 tab DAILY PO Last administered on 04/04/18 08:39; Admin Dose 1 TAB; Start 03/24/18 at 09:00 Quetiapine Fumarate (Seroquel) 300 mg QHS PO Last administered on 04/03/18 23:20; Admin Dose 300 MG; Start 03/27/18 at 21:00 Citalopram Hydrobromide (Celexa) 20 mg DAILY PO Last administered on 04/04/18 08:38; Admin Dose 20 MG; Start 03/27/18 at 10:30 Buspirone HCl (Buspar) 10 mg BID PO Last administered on 04/04/18 08:38; Admin Dose 10 MG; Start 03/27/18 at 10:30 Diagnostic Test (Pha) (Accu-Chek) 1 ea 02 XX ; Start 03/30/18 at 02:00 Cholecalciferol (Vitamin D) 2,000 unit DAILY PO Last administered on 04/04/18at 08:38; Admin Dose 2,000 UNIT; Start 03/30/18 at 09:30 Insulin Aspart (Novolog Insulin Pen) (Adult SC Insulin - Moder... WITH MEALS BEDTIME SC ; Start 03/30/18 at 12:00 Ceftriaxone Sodium 50 ml @ 100 mls/hr Q24H IVPB Last administered on 04/04/18at 08:38; Admin Dose 100 MLS/HR; Start 04/01/18 at 09:30 Morphine Sulfate (morphine) 10 mg Q4H PRN PO SEVERE PAIN LEVEL 7-10 Last administered on 04/04/18at 06:45; Admin Dose 10 MG; Start 04/03/18 at 13:30 Diphenhydramine HCl (Benadryl) 50 mg Q6H PRN IV itching Last administered on 04/04/18at 14:13; Admin Dose 50 MG; Start 04/04/18 at 06:00 LEODAN SONI MD Apr 04, 2018 17:21
--- NOTE | 2018-04-04 17:53 | NUR ---
END OF SHIFT NOTES: PT STABLE, ALERT & ORIENTED X4. NO DISTRESS NOTED. ACCUCHECKS DONE, NO COVERAGE INDICATED. WOUND CARE DONE, PICTURES TAKEN. PENDING HD TOMORROW. MEDICATED WITH BENADRYL FOR ITCHING. INSTRUCTED PT TO CALL FOR ASSISTANCE. VS WNL.HOURLY ROUNDING. CALL LIGHT WITHIN REACH.ALL NEEDS MET. NO NEW COMPLAINTS
[2018-04-04 19:07] VITALS: BP 145/79; PULSE 72; RESP 18
[2018-04-05] VITALS (19 sets, daily range): BP systolic 90–186; BP diastolic 27–88; PULSE 62–79; RESP 16–18
[2018-04-05] MEDS: hydrALAzine 20 MG INJ IV PRN (00:35)
[2018-04-05] MEDS: DIPHENHYDRAMINE 50 MG INJ IV PRN ×3 (00:38→16:09)
[2018-04-05] MEDS: morphine LIQ (10 MG/5 ML) CUP PO PRN ×2 (01:16→01:19)
[2018-04-05] MEDS: ACCU-CHEK XX SCH (02:00)
--- NOTE | 2018-04-05 05:56 | NUR ---
EOSS Pt bp elevated, medicated with iv hydralazine x 1: effective. Pt complained of pain, medicated x 1, somewhat effective. Pt medicated with iv benadryl x 1. Pt bg wnl, had multiple snacks throughout shift. Bed alarm on, call light within reach. Pt had 3 large bm.
[2018-04-05] MEDS: PANTOPRAZOLE (EC) 40 MG TAB PO SCH (06:12)
[2018-04-05] MEDS: Insulin NOVOLOG SS MODERATE Algorithm (SS with meals and bedtime) SC SCH ×4 (08:00→20:49)
--- NOTE | 2018-04-05 08:12 | PN ---
DATE: 04/05/2018 SUBJECTIVE: The patient is stable, no events overnight. OBJECTIVE: VITAL SIGNS: Blood pressure is 144/76, pulse 63, respirations 16, temperature 97.4. HEENT: Head is normocephalic. NECK: Supple. HEART: Regular rate. LUNGS: Show diminished breath sounds at the base. ABDOMEN: Soft, nontender to palpation without rebound or guarding. EXTREMITIES: Negative for clubbing, cyanosis, no edema. DERMATOLOGIC: No rashes. MUSCULOSKELETAL: No joint effusion. NEUROLOGIC: No change in exam. MEDICATIONS: Reviewed. LABORATORY DATA: Reviewed. ASSESSMENT AND PLAN: 1. End-stage renal disease. Plan is for hemodialysis today. We will dialyze 3 hours 3k bath, calci um 2.5. 2. Anemia. Continue to monitor hemoglobin and hematocrit levels. Continue Epogen. 3. Mineral bone disorder, monitor calcium and phosphorus levels. Continue vitamin D analogs and nel sphate binders. 4. Volume overload, improving. 5. Liver disease. Continue medical management. 6. Hypertension. Continue current blood pressure regimen. Continue ultrafiltration dialysis. 7. Gastritis. Continue proton pump inhibitor. 8. History of depressive disorder. Continue Seroquel. 9. Ascites, status post paracentesis. Dictated By: SHILO LIU DO NR/NTS Conf#: [id number] DID#: [id number] CC: JF KAISER MD; RAYMUNDO DOUGLASS MD;*EndCC*
[2018-04-05] MEDS: SEVELAMER CARBONATE 0.8 GM PKT PO SCH ×3 (08:54→18:26)
[2018-04-05] MEDS: MULTIVIT/CA CARB/B CMPLX/FA TAB PO SCH (08:56)
[2018-04-05] MEDS: QUETIAPINE 100 MG TAB PO SCH ×2 (08:56→20:49)
[2018-04-05] MEDS: CALCITRIOL 0.25 MCG CAP PO SCH (08:56)
[2018-04-05] MEDS: BUSPIRONE 10 MG TAB PO SCH ×2 (08:57→20:48)
[2018-04-05] MEDS: CITALOPRAM 20 MG TAB PO SCH (08:57)
[2018-04-05] MEDS: CHOLECALCIFEROL 2,000 UNIT CAP PO SCH (08:57)
[2018-04-05] MEDS: LEVETIRACETAM 500 MG TAB PO SCH ×2 (08:57→20:48)
[2018-04-05] MEDS: NIFEdipine (XL) 30 MG TAB PO SCH (08:58)
[2018-04-05] MEDS: LABETALOL 200 MG TAB PO SCH ×2 (08:58→20:48)
[2018-04-05] MEDS: COLLAGENASE 5 GM (UD JAR) TOP SCH (09:00)
[2018-04-05] MEDS: CHOLESTYRAMINE 4 GM PACKET PO SCH (09:01)
--- NOTE | 2018-04-05 09:04 | PN ---
Date/Time of Note Date/Time of Note DATE: 04/05/18 TIME: 09:02 Assessment/Plan VTE Prophylaxis Risk score (from Ns)>0 risk: 4 [place]CD applied [place]from [facility] [place] SCD contraindicated: patient refusal Pharmacological prophylaxis: NA/contraindicated Pharm contraindication: renal impairment Lines/Catheters [facility] Mid Line Urinary Cath still in place: No (hemodialysis patient) Assessment/Plan Hospital Course 52 yo female with ESRD and diarrhea left AMA 03/16 and returned with abdominal pain. 1. Abdominal pain -secondary to ascites -Ascites fluid: WBC 1886 2. Diarrhea -O/P negative. C diff negative -improved 3. Mildly elevated lipase with mid abd pain radiating to back -resolved 4. Mild generalized small and large bowel wall thickening which per CT 03/01 could represent third spacing. 5. Hemorrhoids per pt 6. Mild hepatomegaly 7. Anemia, likely due to chronic disease -Ferritin high, Iron wnl, TIBC low, B12 wnl, folate wnl, FOB negative -no evidence of GI bleeding 8. End stage renal disease on HD 9. Cardiomegaly with mild lower lung pulmonary edema with small left effusion and mild diffuse ascites 10. Anasarca and ascites -s/p pracentesisi 03/15, 03/19, 03/26, 03/30 11. Diabetes 12. Hypertension 13. Elevated alk phos secondary to chronic liver disease 14. Mildly dilated biliary system with CBD measuring 10mm -s/p ercp 15. Chronic liver disease 16. Spontaneous bacterial peritonitis -started on cefotaxime 2 gm IV q 8 hours -cultures negative. MRCP 03/18: 1. Enlarged liver with suggestion of mild liver surface nodularity. Chronic hepatic parenchymal disease is suspected. Diffusely decreased T2 signal intensity of the liver and spleen can represent hemosiderin deposition likely in the setting of secondary hemochromatosis. 2. Large volume ascites. 3. Wall thickening of the gallbladder without gallstones. This likely relates to presence of large volume ascites. 4. Wall thickening of multiple loops of small bowel may also relate to presence of ascites. 5. No intrahepatic biliary ductal dilatation. Mild extrahepatic biliary ductal dilatation measuring up to 10 mm in the mid common bile duct with gradual distal tapering. No filling defects along the course of the common bile duct within the limitations of this exam to represent choledocholithiasis. Plan: Recommend Cefotaxime 2 gm IV q 8 hours Monitor LFTs and WBC Continue with diet as tolerated Continue with PPI PRN pain management WBC count and culture of peritoneal fluid with next paracentesis Pt examined and plan of care discussed with Dr. Webb Result Diagram: 04/03/18 1521 04/03/18 0925 Results 24hrs Laboratory Tests Test 04/04/18 12:42 04/04/18 17:12 04/04/18 20:19 04/05/18 08:51 Bedside Glucose 110 70 97 90 Exam/Review of Systems Vital Signs Vitals Vital Signs Date Temp Pulse Resp B/P (MAP) Pulse Ox O2 O2 Flow FiO2 Time Delivery Rate 04/05/18 97.4 63 16 144/76 97 Room Air 07:21 (98) Intake and Output 04/04/18 04/04/18 04/05/18 1515:00 23:00 07:00 IntakeIntake Total 620 ml BalanceBalance 620 ml Exam Constitutional: alert, oriented Psych: no complaints Head: normocephalic Eyes: PERRL Respiratory: diminished breath sounds Gastrointestinal: soft, ascites, distended, tender Neurological: nl mental status Medications Medications Current Medications Ondansetron HCl (Zofran Inj) 4 mg Q6H PRN IV NAUSEA AND/OR VOMITING Last administered on 04/03/18 13:37; Admin Dose 4 MG; Start 03/16/18 at 18:30 Clonidine (Catapres) 0.1 mg Q6H PRN PO ELEVATED BLOOD PRESSURE Last administered on 03/18/18at 02:50; Admin Dose 0.1 MG; Start 03/16/18 at 20:30 Calcitriol (Rocaltrol) 0.25 mcg DAILY PO Last administered on 04/04/18 08:39; Admin Dose 0.25 MCG; Start 03/17/18 at 09:00 Levetiracetam (Keppra) 500 mg BID PO Last administered on 04/04/18 20:21; Admin Dose 500 MG; Start 03/16/18 at 21:00 Nifedipine (Procardia Xl) 30 mg DAILY PO Last administered on 04/04/18 08:38; Admin Dose 30 MG; Start 03/17/18 at 09:00 Pantoprazole (Protonix Tab) 40 mg AC BREAKFAST PO Last administered on 04/05/18 06:12; Admin Dose 40 MG; Start 03/17/18 at 07:00 Quetiapine Fumarate (Seroquel) 300 mg DAILY PO Last administered on 04/04/18 08:39; Admin Dose 300 MG; Start 03/17/18 at 09:00 Sevelamer Carbonate (Renvela) 1.6 gm WITH MEALS PO Last administered on 04/04/18 17:11; Admin Dose 1.6 GM; Start 03/17/18 at 08:00 Miscellaneous Information 1 ea NOTE XX ; Start 03/16/18 at 21:30 Glucose (Glutose) 15 gm Q15M PRN PO DECREASED GLUCOSE; Start 03/16/18 at 21:30 Glucose (Glutose) 22.5 gm Q15M PRN PO DECREASED GLUCOSE; Start 03/16/18 at 21:30 Dextrose (D50w Syringe) 25 ml Q15M PRN IV DECREASED GLUCOSE; Start 03/16/18 at 21:30 Dextrose (D50w Syringe) 50 ml Q15M PRN IV DECREASED GLUCOSE; Start 03/16/18 at 21:30 Glucagon (Glucagen) 1 mg Q15M PRN IM DECREASED GLUCOSE; Start 03/16/18 at 21:30 Glucose (Glutose) 15 gm Q15M PRN BUCCAL DECREASED GLUCOSE; Start 03/16/18 at 21:30 Labetalol HCl (Normodyne) 200 mg BID PO Last administered on 04/04/18 20:21; Admin Dose 200 MG; Start 03/16/18 at 22:00 Loperamide HCl (Imodium Cap) 2 mg Q6H PRN PO diarrhea Last administered on 03/20/18at 01:12; Admin Dose 2 MG; Start 03/17/18 at 03:30 Cholestyramine Resin (Questran) 1 pkt DAILY PO Last administered on 04/04/18 08:38; Admin Dose 1 PKT; Start 03/17/18 at 09:00 Acetaminophen (Tylenol Tab) 650 mg Q6H PRN PO MILD PAIN(1-3)OR ELEVATED TEMP Last administered on 03/19/18at 07:55; Admin Dose 650 MG; Start 03/17/18 at 14:00 Hydralazine HCl (Apresoline) 25 mg Q6H PRN PO ELEVATED SYSTOLIC BP Last administered on 03/19/18at 18:13; Admin Dose 25 MG; Start 03/18/18 at 05:30 Heparin Sodium (Porcine) (Heparin (1000 Units/ml)) 2,300 unit AFTER DIALYSIS CATHETER Last administered on 04/03/18 13:04; Admin Dose 2,300 UNIT; Start 03/18/18 at 22:00 Collagenase (Santyl) 1 applic DAILY TOP Last administered on 04/04/18 08:39; Admin Dose 1 APPLIC; Start 03/19/18 at 19:30 Collagenase (Santyl) 1 applic PRN PRN TOP WHEN SOILED Last administered on 03/23/18 21:45; Admin Dose 1 APPLIC; Start 03/19/18 at 19:30 Hydralazine HCl (Apresoline) 10 mg Q6H PRN IV elevated BP Last administered on 04/05/18 00:35; Admin Dose 10 MG; Start 03/19/18 at 19:30 Epoetin Clinton (Epogen (Esrd)) 10,000 units MoWeFr@17 SC Last administered on 04/02/18 17:19; Admin Dose 10,000 UNITS; Start 03/22/18 at 17:00 Multivit/Ca Carb/ B Cmplx/FA/Prenat (Alena-Martin) 1 tab DAILY PO Last administered on 04/04/18 08:39; Admin Dose 1 TAB; Start 03/24/18 at 09:00 Quetiapine Fumarate (Seroquel) 300 mg QHS PO Last administered on 04/04/18 20:22; Admin Dose 300 MG; Start 03/27/18 at 21:00 Citalopram Hydrobromide (Celexa) 20 mg DAILY PO Last administered on 04/04/18 08:38; Admin Dose 20 MG; Start 03/27/18 at 10:30 Buspirone HCl (Buspar) 10 mg BID PO Last administered on 04/04/18 20:20; Admin Dose 10 MG; Start 03/27/18 at 10:30 Diagnostic Test (Pha) (Accu-Chek) 1 ea 02 XX ; Start 03/30/18 at 02:00 Cholecalciferol (Vitamin D) 2,000 unit DAILY PO Last administered on 04/04/18 08:38; Admin Dose 2,000 UNIT; Start 03/30/18 at 09:30 Insulin Aspart (Novolog Insulin Pen) (Adult SC Insulin - Moder... WITH MEALS BEDTIME SC ; Start 03/30/18 at 12:00 Ceftriaxone Sodium 50 ml @ 100 mls/hr Q24H IVPB Last administered on 04/04/18at 08:38; Admin Dose 100 MLS/HR; Start 04/01/18 at 09:30 Morphine Sulfate (morphine) 10 mg Q4H PRN PO SEVERE PAIN LEVEL 7-10 Last administered on 04/05/18at 01:19; Admin Dose 10 MG; Start 04/03/18 at 13:30 Diphenhydramine HCl (Benadryl) 50 mg Q6H PRN IV itching Last administered on 04/05/18at 00:38; Admin Dose 50 MG; Start 04/04/18 at 06:00 ROBERT GOODRICH Apr 05, 2018 09:04
[2018-04-05] MEDS: BALSAM PERU/CASTOR OIL 60 GM TUBE TOP SCH (09:06)
[2018-04-05] MEDS: CEFTRIAXONE 1 GM/NS 50 ML IVPB SCH (09:08)
--- NOTE | 2018-04-05 11:53 | NUR ---
Tunneled IJ CVC issues: AP has no negative flow, but is flushable, good positive flow. YOUTH CAREER SPECIALIST has poor negative flow, good positive flow. Lines reversed for dialysis treatment, YOUTH CAREER SPECIALIST requires flushing periodically. BFR adjust between 200 - 250 to accommodate access flow limitations. Addendum: 04/05/18 at 1159 by ROSHAN OTERO Notified Horace Steel MD at [id number] and order cathflo (alteplase).
[2018-04-05] MEDS ORDERED: ALTEPLASE (CATHFLO) 2 MG INJ CATHETER ONE (12:30)
--- NOTE | 2018-04-05 14:24 | NUR ---
Case Management notes: faxed to [facility] and Nate @ [phone]. Nate with discharge Planning will assist with SNF placement Dialysis chair will also be found in conjunction with Location of SNF
--- NOTE | 2018-04-05 17:22 | PN ---
Date/Time of Note Date/Time of Note DATE: 04/05/18 TIME: 17:18 Assessment/Plan VTE Prophylaxis Risk score (from Ns)>0 risk: 4 SCD applied (from [facility]): Yes Pharmacological prophylaxis: NA/contraindicated, other Pharm contraindication: other Lines/Catheters IV Catheter Type (from [facility]): Mid Line Urinary Cath still in place: No (hemodialysis patient) Assessment/Plan Hospital Course Patient remains hemodynamically stable, blood sugar is adequately controlled, pending fdc facility placement. Assessment/Plan -Abdominal pain status post ERCP with sphincterectomy, removal of stone and stenting by Dr. Webb. -Chronic liver disease, likely cirrhotic. -Anasarca and ascites, s/p paracentesis on 03/15, 03/19, 03/26, 03/30. -Hemodialysis dependent end-stage renal disease. Continue hemodialysis per nephrology. Dr. Bledsoe is following in nephrology consultation -Hypertension, continue Procardia and hydralazine as needed. -Diabetes, NovoLog per mild algorithm sliding scale -Seizure disorder, continue Keppra -Gastritis, continue PPI -Anemia of chronic disease, continue Epogen -Depressive disorder with psychosis. Continue Seroquel. Further recommendations based on clinical course. Plan of care discussed with Dr. Smith. Result Diagram: 04/03/18 1521 04/03/18 0925 Results 24hrs Laboratory Tests Test 04/04/18 20:19 04/05/18 08:51 04/05/18 12:58 Bedside Glucose 97 90 87 Exam/Review of Systems Vital Signs Vitals Vital Signs Date Temp Pulse Resp B/P (MAP) Pulse Ox O2 O2 Flow FiO2 Time Delivery Rate 04/05/18 97.8 76 16 154/83 100 Room Air 14:30 (106) Intake and Output 04/04/18 04/04/18 04/05/18 1515:00 23:00 07:00 IntakeIntake Total 620 ml BalanceBalance 620 ml Exam Constitutional: alert, oriented Respiratory: clear to auscultation Cardiovascular: rnl pulse Gastrointestinal: soft, distended Musculoskeletal: nl extremities to inspection Extremities: normal pulses Additional Comments Left chest tunneled hemodialysis catheter Medications Medications Current Medications Ondansetron HCl (Zofran Inj) 4 mg Q6H PRN IV NAUSEA AND/OR VOMITING Last administered on 04/03/18at 13:37; Admin Dose 4 MG; Start 03/16/18 at 18:30 Clonidine (Catapres) 0.1 mg Q6H PRN PO ELEVATED BLOOD PRESSURE Last administered on 03/18/18 02:50; Admin Dose 0.1 MG; Start 03/16/18 at 20:30 Calcitriol (Rocaltrol) 0.25 mcg DAILY PO Last administered on 04/05/18 08:56; Admin Dose 0.25 MCG; Start 03/17/18 at 09:00 Levetiracetam (Keppra) 500 mg BID PO Last administered on 04/05/18 08:57; Admin Dose 500 MG; Start 03/16/18 at 21:00 Nifedipine (Procardia Xl) 30 mg DAILY PO Last administered on 04/04/18 08:38; Admin Dose 30 MG; Start 03/17/18 at 09:00 Pantoprazole (Protonix Tab) 40 mg AC BREAKFAST PO Last administered on 04/05/18 06:12; Admin Dose 40 MG; Start 03/17/18 at 07:00 Quetiapine Fumarate (Seroquel) 300 mg DAILY PO Last administered on 04/05/18 08:56; Admin Dose 300 MG; Start 03/17/18 at 09:00 Sevelamer Carbonate (Renvela) 1.6 gm WITH MEALS PO Last administered on 04/05/18 13:12; Admin Dose 1.6 GM; Start 03/17/18 at 08:00 Miscellaneous Information 1 ea NOTE XX ; Start 03/16/18 at 21:30 Glucose (Glutose) 15 gm Q15M PRN PO DECREASED GLUCOSE; Start 03/16/18 at 21:30 Glucose (Glutose) 22.5 gm Q15M PRN PO DECREASED GLUCOSE; Start 03/16/18 at 21:30 Dextrose (D50w Syringe) 25 ml Q15M PRN IV DECREASED GLUCOSE; Start 03/16/18 at 21:30 Dextrose (D50w Syringe) 50 ml Q15M PRN IV DECREASED GLUCOSE; Start 03/16/18 at 21:30 Glucagon (Glucagen) 1 mg Q15M PRN IM DECREASED GLUCOSE; Start 03/16/18 at 21:30 Glucose (Glutose) 15 gm Q15M PRN BUCCAL DECREASED GLUCOSE; Start 03/16/18 at 21:30 Labetalol HCl (Normodyne) 200 mg BID PO Last administered on 04/04/18 20:21; Admin Dose 200 MG; Start 03/16/18 at 22:00 Loperamide HCl (Imodium Cap) 2 mg Q6H PRN PO diarrhea Last administered on 03/20/18 01:12; Admin Dose 2 MG; Start 03/17/18 at 03:30 Cholestyramine Resin (Questran) 1 pkt DAILY PO Last administered on 04/05/18 09:01; Admin Dose 1 PKT; Start 03/17/18 at 09:00 Acetaminophen (Tylenol Tab) 650 mg Q6H PRN PO MILD PAIN(1-3)OR ELEVATED TEMP Last administered on 03/19/18 07:55; Admin Dose 650 MG; Start 03/17/18 at 14:00 Hydralazine HCl (Apresoline) 25 mg Q6H PRN PO ELEVATED SYSTOLIC BP Last administered on 03/19/18 18:13; Admin Dose 25 MG; Start 03/18/18 at 05:30 Heparin Sodium (Porcine) (Heparin (1000 Units/ml)) 2,300 unit AFTER DIALYSIS CATHETER Last administered on 04/03/18 13:04; Admin Dose 2,300 UNIT; Start 03/18/18 at 22:00 Collagenase (Santyl) 1 applic DAILY TOP Last administered on 04/04/18 08:39; Admin Dose 1 APPLIC; Start 03/19/18 at 19:30 Collagenase (Santyl) 1 applic PRN PRN TOP WHEN SOILED Last administered on 03/23/18 21:45; Admin Dose 1 APPLIC; Start 03/19/18 at 19:30 Hydralazine HCl (Apresoline) 10 mg Q6H PRN IV elevated BP Last administered on 04/05/18 00:35; Admin Dose 10 MG; Start 03/19/18 at 19:30 Epoetin Clinton (Epogen (Esrd)) 10,000 units MoWeFr@17 SC Last administered on 04/02/18 17:19; Admin Dose 10,000 UNITS; Start 03/22/18 at 17:00 Multivit/Ca Carb/ B Cmplx/FA/Prenat (Alena-Martin) 1 tab DAILY PO Last administered on 04/05/18 08:56; Admin Dose 1 TAB; Start 03/24/18 at 09:00 Quetiapine Fumarate (Seroquel) 300 mg QHS PO Last administered on 04/04/18 20:22; Admin Dose 300 MG; Start 03/27/18 at 21:00 Citalopram Hydrobromide (Celexa) 20 mg DAILY PO Last administered on 04/05/18 08:57; Admin Dose 20 MG; Start 03/27/18 at 10:30 Buspirone HCl (Buspar) 10 mg BID PO Last administered on 04/05/18 08:57; Admin Dose 10 MG; Start 03/27/18 at 10:30 Diagnostic Test (Pha) (Accu-Chek) 1 ea 02 XX ; Start 03/30/18 at 02:00 Cholecalciferol (Vitamin D) 2,000 unit DAILY PO Last administered on 04/05/18 08:57; Admin Dose 2,000 UNIT; Start 03/30/18 at 09:30 Insulin Aspart (Novolog Insulin Pen) (Adult SC Insulin - Moder... WITH MEALS BEDTIME SC ; Start 03/30/18 at 12:00 Ceftriaxone Sodium 50 ml @ 100 mls/hr Q24H IVPB Last administered on 04/05/18 09:08; Admin Dose 100 MLS/HR; Start 04/01/18 at 09:30 Morphine Sulfate (morphine) 10 mg Q4H PRN PO SEVERE PAIN LEVEL 7-10 Last administered on 04/05/18 01:19; Admin Dose 10 MG; Start 04/03/18 at 13:30 Diphenhydramine HCl (Benadryl) 50 mg Q6H PRN IV itching Last administered on 04/05/18 16:09; Admin Dose 50 MG; Start 04/04/18 at 06:00 BLAKE MORALES Apr 05, 2018 17:22
[2018-04-05] MEDS: EPOETIN 10000 UNITS/1 ML INJ (ESRD) SC SCH (18:26)
--- NOTE | 2018-04-05 19:22 | NUR ---
PATIENT ALERT AND ORIENTED X4, ASSISTED WITH MEALS. HEMODIALYSIS DONE THIS MORNING, 1L OUT. PATIENT ASSISTED TO THE COMMODE, HAD THREE BOWEL MOVEMENTS. WOUND DRESSING CHANGE DONE ORDERED. WILL ENDORSE PATIENT CARE TO ONCOMING NURSE.
[2018-04-06] MEDS: ACCU-CHEK XX SCH (02:00)
[2018-04-06 03:01] VITALS: BP 182/87; PULSE 74; RESP 18
[2018-04-06] MEDS: DIPHENHYDRAMINE 50 MG INJ IV PRN ×3 (03:08→18:28)
[2018-04-06] MEDS: hydrALAzine 20 MG INJ IV PRN (03:25)
[2018-04-06] MEDS: morphine LIQ (10 MG/5 ML) CUP PO PRN ×2 (03:48→16:35)
[2018-04-06 06:00] VITALS: BP 151/78; PULSE 77
--- NOTE | 2018-04-06 06:04 | NUR ---
SHIFT NOTES: PATIENT SLEPT ON AND OFF,ASSISTED TO THE BEDSIDE COMMODE FOR TOILETING NEEDS.MEDICATED WITH BENADRYL FOR ITCHING AND MORPHINE ORAL FOR PAIN.NO DIABETIC REACTION NOTED.HYDRALAZINE PRN GIVEN FOR ELEVATED BLOOD PRESSURE.LAST BLOOD PRESSURE 151/78.HR 77.
[2018-04-06] MEDS: PANTOPRAZOLE (EC) 40 MG TAB PO SCH (06:29)
[2018-04-06 07:23] VITALS: BP 144/83; PULSE 72; RESP 16
--- NOTE | 2018-04-06 07:40 | NUR ---
OT EVAL: Pt is a 52 yo F with PMH of DM, HTN, ESRD on dialysis, depression, seizure disorder, gastritis who left AMA on 03/16 and returned within a few hours with SOB and abdominal pain 2/2 ascities. Pt was previously admitted for similar symptoms. Pt S/P paracentesis 03/15, 03/19, 03/26, 03/30 and s/p ERCP with sphincterectomy and removal of stone and stenting. Pt received in 5E, med/surg. Precautions: Fall precautions PLOF: Per EMR of previous admit, pt is homeless and has been living with dtr and friends prior to admission to [facility]. Pt reports her dtr lives in a 2nd floor apartment with no elevator access. Pt states she was independent with ADl's and Ambulatory with FWW and SPC but pt no longer owns these DME as she lost them when she was evicted. CLOF: RN cleared pt for OT evaluation. Pt AOx4, cooperative and agreeable to tx. Pt stated 10/10 stomach pain and demonstrated BUE AROM WFL and MMT 3+/5. Pt performed supine to sit at EOB with supervision. Seated at EOB pt performed UB/LB bathing and dressing with SBA. Pt required CGA for STS and toilet transfer using FWW due to impaired balance. Pt stood at bathroom sink with SBA while completing h/g. Pt returned to bed with CGA. Pt left supine in bed with all needs met. RN notified. Pt will benefit from skilled OT tx 1x daily for 3-5x week for self care, safety awareness training, balance and increased independence with self care. Recommend to to SNF while cleared by .
[2018-04-06] MEDS: Insulin NOVOLOG SS MODERATE Algorithm (SS with meals and bedtime) SC SCH ×4 (07:54→21:00)
[2018-04-06] MEDS: QUETIAPINE 100 MG TAB PO SCH ×2 (08:13→21:40)
[2018-04-06] MEDS: SEVELAMER CARBONATE 0.8 GM PKT PO SCH ×3 (08:13→17:06)
[2018-04-06] MEDS: LEVETIRACETAM 500 MG TAB PO SCH ×2 (08:14→21:40)
[2018-04-06] MEDS: MULTIVIT/CA CARB/B CMPLX/FA TAB PO SCH (08:14)
[2018-04-06] MEDS: BUSPIRONE 10 MG TAB PO SCH ×2 (08:14→21:40)
[2018-04-06] MEDS: NIFEdipine (XL) 30 MG TAB PO SCH (08:14)
[2018-04-06] MEDS: CHOLECALCIFEROL 2,000 UNIT CAP PO SCH (08:14)
[2018-04-06] MEDS: CALCITRIOL 0.25 MCG CAP PO SCH (08:14)
[2018-04-06] MEDS: CITALOPRAM 20 MG TAB PO SCH (08:14)
[2018-04-06] MEDS: LABETALOL 200 MG TAB PO SCH ×2 (08:15→21:40)
[2018-04-06] MEDS: COLLAGENASE 5 GM (UD JAR) TOP SCH (08:15)
[2018-04-06] MEDS: BALSAM PERU/CASTOR OIL 60 GM TUBE TOP SCH (08:16)
--- NOTE | 2018-04-06 08:18 | PN ---
Date/Time of Note Date/Time of Note DATE: 04/06/18 TIME: 08:13 Assessment/Plan VTE Prophylaxis Risk score (from Ns)>0 risk: 4 SCD applied (from Ns): Yes Pharmacological prophylaxis: NA/contraindicated Pharm contraindication: liver dx, renal impairment Lines/Catheters IV [facility]atheter Type (from [facility]): Mid Line Urinary Cath still in place: No (hemodialysis patient) Assessment/Plan Hospital Course 52 yo female with ESRD and diarrhea left AMA 03/16 and returned with abdominal pain. 1. Abdominal pain -secondary to ascites -Ascites fluid: WBC 1886 -improved 2. Diarrhea -O/P negative. C diff negative -improved 3. Mildly elevated lipase with mid abd pain radiating to back -resolved 4. Mild generalized small and large bowel wall thickening which per CT 03/01 could represent third spacing. 5. Hemorrhoids per pt 6. Mild hepatomegaly 7. Anemia, likely due to chronic disease -Ferritin high, Iron wnl, TIBC low, B12 wnl, folate wnl, FOB negative -no evidence of GI bleeding 8. End stage renal disease on HD 9. Cardiomegaly with mild lower lung pulmonary edema with small left effusion and mild diffuse ascites 10. Anasarca and ascites -s/p pracentesisi 03/15, 03/19, 03/26, 03/30 11. Diabetes 12. Hypertension 13. Elevated alk phos secondary to chronic liver disease 14. Mildly dilated biliary system with CBD measuring 10mm -s/p ercp 15. Chronic liver disease 16. Spontaneous bacterial peritonitis -started on cefotaxime 2 gm IV q 8 hours -cultures negative. Plan: ANCA stover dulcolax 10 mg x 1 Recommend Cefotaxime 2 gm IV q 8 hours, hospital does not carry, Rocephin started Continue with diet as tolerated Continue with PPI PRN pain management WBC count and culture of peritoneal fluid with next paracentesis Pt examined and plan of care discussed with Dr. Webb Result Diagram: 04/03/18 1521 04/03/18 0925 Results 24hrs Laboratory Tests Test 04/05/18 08:51 04/05/18 12:58 04/05/18 17:50 04/05/18 20:47 Bedside Glucose 90 87 103 105 Test 04/06/18 07:50 Bedside Glucose 75 Subjective 24 Hr Interval Summary Free Text/Dictation Pt abd pain markedly improved. Pt states she feels like she need to go to bathroom, has gas but not always a bm. Exam/Review of Systems Vital Signs Vitals Vital Signs Date Temp Pulse Resp B/P (MAP) Pulse Ox O2 O2 Flow FiO2 Time Delivery Rate 04/06/18 98.9 72 16 144/83 100 Room Air 07:23 (103) Intake and Output 04/05/18 04/05/18 04/06/18 1515:00 23:00 07:00 IntakeIntake Total 290 ml OutputOutput Total 1600 ml BalanceBalance -1310 ml Exam Constitutional: alert, oriented Psych: no complaints Head: normocephalic Eyes: PERRL ENMT: mucosa pink and moist Respiratory: diminished breath sounds Cardiovascular: regular rate and rhythm Gastrointestinal: soft, tender Musculoskeletal: nl gait and stance, muscle weakness Extremities: normal pulses Neurological: nl mental status Medications Medications Current Medications Ondansetron HCl (Zofran Inj) 4 mg Q6H PRN IV NAUSEA AND/OR VOMITING Last administered on 04/03/18 13:37; Admin Dose 4 MG; Start 03/16/18 at 18:30 Clonidine (Catapres) 0.1 mg Q6H PRN PO ELEVATED BLOOD PRESSURE Last administered on 03/18/18 02:50; Admin Dose 0.1 MG; Start 03/16/18 at 20:30 Calcitriol (Rocaltrol) 0.25 mcg DAILY PO Last administered on 04/05/18 08:56; Admin Dose 0.25 MCG; Start 03/17/18 at 09:00 Levetiracetam (Keppra) 500 mg BID PO Last administered on 04/05/18 20:48; Admin Dose 500 MG; Start 03/16/18 at 21:00 Nifedipine (Procardia Xl) 30 mg DAILY PO Last administered on 04/04/18 08:38; Admin Dose 30 MG; Start 03/17/18 at 09:00 Pantoprazole (Protonix Tab) 40 mg AC BREAKFAST PO Last administered on 04/06/18 06:29; Admin Dose 40 MG; Start 03/17/18 at 07:00 Quetiapine Fumarate (Seroquel) 300 mg DAILY PO Last administered on 04/05/18 08:56; Admin Dose 300 MG; Start 03/17/18 at 09:00 Sevelamer Carbonate (Renvela) 1.6 gm WITH MEALS PO Last administered on 04/05/18 18:26; Admin Dose 1.6 GM; Start 03/17/18 at 08:00 Miscellaneous Information 1 ea NOTE XX ; Start 03/16/18 at 21:30 Glucose (Glutose) 15 gm Q15M PRN PO DECREASED GLUCOSE; Start 03/16/18 at 21:30 Glucose (Glutose) 22.5 gm Q15M PRN PO DECREASED GLUCOSE; Start 03/16/18 at 21:30 Dextrose (D50w Syringe) 25 ml Q15M PRN IV DECREASED GLUCOSE; Start 03/16/18 at 21:30 Dextrose (D50w Syringe) 50 ml Q15M PRN IV DECREASED GLUCOSE; Start 03/16/18 at 21:30 Glucagon (Glucagen) 1 mg Q15M PRN IM DECREASED GLUCOSE; Start 03/16/18 at 21:30 Glucose (Glutose) 15 gm Q15M PRN BUCCAL DECREASED GLUCOSE; Start 03/16/18 at 21:30 Labetalol HCl (Normodyne) 200 mg BID PO Last administered on 04/05/18 20:48; Admin Dose 200 MG; Start 03/16/18 at 22:00 Loperamide HCl (Imodium Cap) 2 mg Q6H PRN PO diarrhea Last administered on 03/20/18at 01:12; Admin Dose 2 MG; Start 03/17/18 at 03:30 Cholestyramine Resin (Questran) 1 pkt DAILY PO Last administered on 04/05/18 09:01; Admin Dose 1 PKT; Start 03/17/18 at 09:00 Acetaminophen (Tylenol Tab) 650 mg Q6H PRN PO MILD PAIN(1-3)OR ELEVATED TEMP Last administered on 03/19/18at 07:55; Admin Dose 650 MG; Start 03/17/18 at 14:00 Hydralazine HCl (Apresoline) 25 mg Q6H PRN PO ELEVATED SYSTOLIC BP Last administered on 03/19/18at 18:13; Admin Dose 25 MG; Start 03/18/18 at 05:30 Heparin Sodium (Porcine) (Heparin (1000 Units/ml)) 2,300 unit AFTER DIALYSIS CATHETER Last administered on 04/03/18 13:04; Admin Dose 2,300 UNIT; Start 03/18/18 at 22:00 Collagenase (Santyl) 1 applic DAILY TOP Last administered on 04/04/18 08:39; Admin Dose 1 APPLIC; Start 03/19/18 at 19:30 Collagenase (Santyl) 1 applic PRN PRN TOP WHEN SOILED Last administered on 03/23/18 21:45; Admin Dose 1 APPLIC; Start 03/19/18 at 19:30 Hydralazine HCl (Apresoline) 10 mg Q6H PRN IV elevated BP Last administered on 04/06/18 03:25; Admin Dose 10 MG; Start 03/19/18 at 19:30 Epoetin Clinton (Epogen (Esrd)) 10,000 units MoWeFr@17 SC Last administered on 04/05/18 18:26; Admin Dose 10,000 UNITS; Start 03/22/18 at 17:00 Multivit/Ca Carb/ B Cmplx/FA/Prenat (Alena-Martin) 1 tab DAILY PO Last administered on 04/05/18 08:56; Admin Dose 1 TAB; Start 03/24/18 at 09:00 Quetiapine Fumarate (Seroquel) 300 mg QHS PO Last administered on 04/05/18 20:49; Admin Dose 300 MG; Start 03/27/18 at 21:00 Citalopram Hydrobromide (Celexa) 20 mg DAILY PO Last administered on 04/05/18 08:57; Admin Dose 20 MG; Start 03/27/18 at 10:30 Buspirone HCl (Buspar) 10 mg BID PO Last administered on 04/05/18 20:48; Admin Dose 10 MG; Start 03/27/18 at 10:30 Diagnostic Test (Pha) (Accu-Chek) 1 ea 02 XX ; Start 03/30/18 at 02:00 Cholecalciferol (Vitamin D) 2,000 unit DAILY PO Last administered on 04/05/18 08:57; Admin Dose 2,000 UNIT; Start 03/30/18 at 09:30 Insulin Aspart (Novolog Insulin Pen) (Adult SC Insulin - Moder... WITH MEALS BEDTIME SC ; Start 03/30/18 at 12:00 Ceftriaxone Sodium 50 ml @ 100 mls/hr Q24H IVPB Last administered on 04/05/18 09:08; Admin Dose 100 MLS/HR; Start 04/01/18 at 09:30 Morphine Sulfate (morphine) 10 mg Q4H PRN PO SEVERE PAIN LEVEL 7-10 Last administered on 04/06/18 03:48; Admin Dose 10 MG; Start 04/03/18 at 13:30 Diphenhydramine HCl (Benadryl) 50 mg Q6H PRN IV itching Last administered on 04/06/18 03:08; Admin Dose 50 MG; Start 04/04/18 at 06:00 ROBERT GOODRICH Apr 06, 2018 08:18
--- NOTE | 2018-04-06 08:24 | PN ---
DATE: 04/06/2018 SUBJECTIVE: The patient is stable. No events overnight. No fever, chills, nausea or vomiting. OBJECTIVE: VITAL SIGNS: Blood pressure is 144/83, respirations 16, pulse 72, temperature 98.9. HEENT: Head is normocephalic. NECK: Supple. HEART: Regular rate. LUNGS: Show diminished breath sounds at the base. ABDOMEN: Soft, nontender to palpation without rebound or guarding. EXTREMITIES: Negative for clubbing, cyanosis, no edema. DERMATOLOGIC: No rashes. MUSCULOSKELETAL: No joint effusions. NEUROLOGIC: No change in exam. MEDICATIONS: Reviewed. LABORATORY DATA: Reviewed. ASSESSMENT AND PLAN: 1. End-stage renal disease. The patient had hemodialysis yesterday. We plan for dialysis again dipesh orrow. 2. Access. The patient is status post Perm-A-Cath. The patient had elevated blood flow pressures w ith hemodialysis. The patient currently has catheter in place. We will reevaluate after hemodialysi s tomorrow and if catheter's pressures remain inadequate, the patient may require Perm-A-Cath placeme nt. 3. Mineral bone disorder, monitor calcium and phosphorus levels. Continue vitamin D analogs and nel sphate binders. 4. Volume overload, improving. 5. Liver disease. Continue medical management. 6. Hypertension. Continue current blood pressure regimen. 7. Gastritis. Continue proton pump inhibitor. 8. History of depressive disorder. Continue Seroquel. 9. Anxiety status post paracentesis. Dictated By: SHILO LIU DO NR/NTS Conf#: [id number] DID#: [id number] CC: JF KAISER MD; RAYMUNDO DOUGLASS MD;*EndCC*
[2018-04-06] MEDS ORDERED: BISACODYL (EC) 5 MG TAB PO ONE (08:30)
[2018-04-06] MEDS: CEFTRIAXONE 1 GM/NS 50 ML IVPB SCH (10:28)
[2018-04-06 14:10] VITALS: BP 125/65; PULSE 76; RESP 18
--- NOTE | 2018-04-06 14:44 | NUR ---
WOUND CARE FOLLOW UP Re-evaluation of sacrococcyx healed stage 3 wound due to multiple treatment modalities on patient's EMR. Upon evaluation, there is slight maceration of healed chapman colored scar tissue with mild linear separation and demarcation from edges from 10 to 2 o'clock probably secondary to moisture. REVISION OF TREATMENT: -Recommend to discontinue using Venelex products at this time and instead protect skin with 3M Cavilon No-Sting barrier twice a day and cover with foam border dressing -Discontinue Santyl ointment if it was ordered under Nursing Protocol. -Inspect and observe site at every shift Patient was seen and plan of care discussed with patient's primary RN as well as Marine Underwriter Thank you Rayne Flores, MSN, RN, CCRN, WCC
--- NOTE | 2018-04-06 16:00 | NUR ---
PT NOTE [facility] Patient: Abiodun Isidro : 1965 Age/Sex: 52/F Unit#: [id number] Room/Bed: 5539/A User: Laura Joya PTA Date: 04/06/18 15:45 Type: PT Technical Record Therapy day number 2 Subjective Denies pain Pain Scale NUMERIC Pain Intensity 0 (0-10) Patient Stated Goal for Pain Relief 0 (0-10) Pain Level Comment denied pain at rest; c/o 8/10 sacral pain with exercises; informed RN Exercise Assessment Label Bilat Lower Extremity Exercise Type Active ROM Additional Exercise Comments supine APs, hip abd/add Exercise Start Time 15:45 Exercise End Time 16:00 Total Exercise Time 15 min (8-127) Additional Mobility Comments declined d/t fatigue and weakness Safety Judgement Poor Activity Tolerance Poor Post Treatment Pain Intensity 8 0-10 Variance Documentation see PT note Total Treament Time 15 min (8-127) Total Minutes 15 Total Units 1 PT Technical Record Comment PT NOTE S: "I can't do anything right now, I'm too weak and tired." Agreed to supine therex with mod encouragement. Cleared by AGUSTO Cornelius. Informed RN regarding sacral wound pain post tx. A: Received awake in semi-fower. Pt declined PT originally d/t weakness and fatigue. Pt education on importance in participation to improve strength and energy; pt demo'd good understanding but continued to decline OOB activities. Performed supine therex, see tech record for details. Pt started to c/o sacral wound pain and declined further therex. Left in semi-turk, call light and all necessities within reach. Informed RN. A: Pt millie tx poorly. Limited in activities d/t fatigue and weakness. Pre-medicate. P: Continue with POC.
--- NOTE | 2018-04-06 17:29 | PN ---
Date/Time of Note Date/Time of Note DATE: 04/06/18 TIME: 17:27 Assessment/Plan VTE Prophylaxis Risk score (from Ns)>0 risk: 2 SCD applied (from Ns): Yes Pharmacological prophylaxis: NA/contraindicated, other Pharm contraindication: renal impairment Lines/Catheters [facility] Mid Line Urinary Cath still in place: No (hemodialysis patient) Assessment/Plan Hospital Course Patient tolerates diet well, stable vital signs, no fever , pending custodial facility placement. Assessment/Plan -Abdominal pain status post ERCP with sphincterectomy, removal of stone and stenting by Dr. Webb. -Chronic liver disease, likely cirrhotic. -Anasarca and ascites, s/p paracentesis on 03/15, 03/19, 03/26, 03/30. -Hemodialysis dependent end-stage renal disease. Continue hemodialysis per nephrology. Dr. Bledsoe is following in nephrology consultation -Hypertension, continue Procardia and hydralazine as needed. -Diabetes, NovoLog per mild algorithm sliding scale -Seizure disorder, continue Keppra -Gastritis, continue PPI -Anemia of chronic disease, continue Epogen -Depressive disorder with psychosis. Continue Seroquel. Further recommendations based on clinical course. Plan of care discussed with Dr. Smith. Result Diagram: 04/03/18 1521 04/03/18 0925 Results 24hrs Laboratory Tests Test 04/05/18 17:50 04/05/18 20:47 04/06/18 07:50 04/06/18 11:54 Bedside Glucose 103 105 75 68 L Test 04/06/18 12:30 04/06/18 17:06 Bedside Glucose 73 136 Exam/Review of Systems Vital Signs Vitals Vital Signs Date Temp Pulse Resp B/P (MAP) Pulse Ox O2 O2 Flow FiO2 Time Delivery Rate 04/06/18 97.8 76 18 125/65 94 Room Air 14:10 (85) Intake and Output 04/05/18 04/05/18 04/06/18 1515:00 23:00 07:00 IntakeIntake Total 290 ml OutputOutput Total 1600 ml BalanceBalance -1310 ml Exam Constitutional: alert, oriented Respiratory: clear to auscultation Cardiovascular: rnl pulse Gastrointestinal: soft, distended Musculoskeletal: nl extremities to inspection Extremities: normal pulses Additional Comments Left chest tunneled hemodialysis catheter Medications Medications Current Medications Ondansetron HCl (Zofran Inj) 4 mg Q6H PRN IV NAUSEA AND/OR VOMITING Last administered on 04/03/18 13:37; Admin Dose 4 MG; Start 03/16/18 at 18:30 Clonidine (Catapres) 0.1 mg Q6H PRN PO ELEVATED BLOOD PRESSURE Last administered on 03/18/18at 02:50; Admin Dose 0.1 MG; Start 03/16/18 at 20:30 Calcitriol (Rocaltrol) 0.25 mcg DAILY PO Last administered on 04/06/18 08:14; Admin Dose 0.25 MCG; Start 03/17/18 at 09:00 Levetiracetam (Keppra) 500 mg BID PO Last administered on 04/06/18 08:14; Admin Dose 500 MG; Start 03/16/18 at 21:00 Nifedipine (Procardia Xl) 30 mg DAILY PO Last administered on 04/06/18 08:14; Admin Dose 30 MG; Start 03/17/18 at 09:00 Pantoprazole (Protonix Tab) 40 mg AC BREAKFAST PO Last administered on 04/06/18 06:29; Admin Dose 40 MG; Start 03/17/18 at 07:00 Quetiapine Fumarate (Seroquel) 300 mg DAILY PO Last administered on 04/06/18 08:13; Admin Dose 300 MG; Start 03/17/18 at 09:00 Sevelamer Carbonate (Renvela) 1.6 gm WITH MEALS PO Last administered on 04/06/18 17:06; Admin Dose 1.6 GM; Start 03/17/18 at 08:00 Miscellaneous Information 1 ea NOTE XX ; Start 03/16/18 at 21:30 Glucose (Glutose) 15 gm Q15M PRN PO DECREASED GLUCOSE; Start 03/16/18 at 21:30 Glucose (Glutose) 22.5 gm Q15M PRN PO DECREASED GLUCOSE; Start 03/16/18 at 21:30 Dextrose (D50w Syringe) 25 ml Q15M PRN IV DECREASED GLUCOSE; Start 03/16/18 at 21:30 Dextrose (D50w Syringe) 50 ml Q15M PRN IV DECREASED GLUCOSE; Start 03/16/18 at 21:30 Glucagon (Glucagen) 1 mg Q15M PRN IM DECREASED GLUCOSE; Start 03/16/18 at 21:30 Glucose (Glutose) 15 gm Q15M PRN BUCCAL DECREASED GLUCOSE; Start 03/16/18 at 21:30 Labetalol HCl (Normodyne) 200 mg BID PO Last administered on 04/06/18 08:15; Admin Dose 200 MG; Start 03/16/18 at 22:00 Loperamide HCl (Imodium Cap) 2 mg Q6H PRN PO diarrhea Last administered on 03/20/18at 01:12; Admin Dose 2 MG; Start 03/17/18 at 03:30 Acetaminophen (Tylenol Tab) 650 mg Q6H PRN PO MILD PAIN(1-3)OR ELEVATED TEMP Last administered on 03/19/18at 07:55; Admin Dose 650 MG; Start 03/17/18 at 14:00 Hydralazine HCl (Apresoline) 25 mg Q6H PRN PO ELEVATED SYSTOLIC BP Last administered on 03/19/18at 18:13; Admin Dose 25 MG; Start 03/18/18 at 05:30 Heparin Sodium (Porcine) (Heparin (1000 Units/ml)) 2,300 unit AFTER DIALYSIS CATHETER Last administered on 04/03/18 13:04; Admin Dose 2,300 UNIT; Start 03/18/18 at 22:00 Collagenase (Santyl) 1 applic DAILY TOP Last administered on 04/06/18 08:15; Admin Dose 1 APPLIC; Start 03/19/18 at 19:30 Collagenase (Santyl) 1 applic PRN PRN TOP WHEN SOILED Last administered on 03/23/18 21:45; Admin Dose 1 APPLIC; Start 03/19/18 at 19:30 Hydralazine HCl (Apresoline) 10 mg Q6H PRN IV elevated BP Last administered on 04/06/18 03:25; Admin Dose 10 MG; Start 03/19/18 at 19:30 Epoetin Clinton (Epogen (Esrd)) 10,000 units MoWeFr@17 SC Last administered on 04/05/18 18:26; Admin Dose 10,000 UNITS; Start 03/22/18 at 17:00 Multivit/Ca Carb/ B Cmplx/FA/Prenat (Alena-Martin) 1 tab DAILY PO Last administered on 1/15/19at 08:14; Admin Dose 1 TAB; Start 03/24/18 at 09:00 Quetiapine Fumarate (Seroquel) 300 mg QHS PO Last administered on 04/05/18 20:49; Admin Dose 300 MG; Start 03/27/18 at 21:00 Citalopram Hydrobromide (Celexa) 20 mg DAILY PO Last administered on 04/06/18 08:14; Admin Dose 20 MG; Start 03/27/18 at 10:30 Buspirone HCl (Buspar) 10 mg BID PO Last administered on 04/06/18 08:14; Admin Dose 10 MG; Start 03/27/18 at 10:30 Diagnostic Test (Pha) (Accu-Chek) 1 ea 02 XX ; Start 03/30/18 at 02:00 Cholecalciferol (Vitamin D) 2,000 unit DAILY PO Last administered on 04/06/18 08:14; Admin Dose 2,000 UNIT; Start 03/30/18 at 09:30 Insulin Aspart (Novolog Insulin Pen) (Adult SC Insulin - Moder... WITH MEALS BEDTIME SC ; Start 03/30/18 at 12:00 Ceftriaxone Sodium 50 ml @ 100 mls/hr Q24H IVPB Last administered on 04/06/18 10:28; Admin Dose 100 MLS/HR; Start 04/01/18 at 09:30 Morphine Sulfate (morphine) 10 mg Q4H PRN PO SEVERE PAIN LEVEL 7-10 Last administered on 04/06/18 16:35; Admin Dose 10 MG; Start 04/03/18 at 13:30 Diphenhydramine HCl (Benadryl) 50 mg Q6H PRN IV itching Last administered on 04/06/18 10:38; Admin Dose 50 MG; Start 04/04/18 at 06:00 BLAKE MORALES Apr 06, 2018 17:29
--- NOTE | 2018-04-06 17:33 | NUR ---
AOX1, [facility], CALLED [facility], GAVE REPORT TO JEAN CLAUDE LIZ, TRANSPORTATION HAS BEEN ARRANGED. TRIP#[id number], MOLDING LINE ASSISTANT TIME [id number]
--- NOTE | 2018-04-06 17:53 | NUR ---
AOX4, MEDICATED FOR PAIN X1 DURING THIS SHIFT, WILL HAVE HD TOMORROW, [facility] CALLED BY RN AND CONFIRMATION NUMBER IS IN THE NOTES, PT REFUSED LINEN CHANGE AND WOUND DRESSING CHANGE
[2018-04-06 19:56] VITALS: BP 165/80; PULSE 74; RESP 16
[2018-04-06 23:32] VITALS: BP 152/68
--- NOTE | 2018-04-06 23:36 | NUR ---
patient ate about 40% of her dinner tonight, her glucose level was 129, patient has gotten up several times to void and have a bowel movement, she is oliguric , had small bowel movement. She can carry on with simple conversation but is soon disoriented and starts arguing with her self. I was able to orient patient to place, time and situation.
[2018-04-07] VITALS (19 sets, daily range): BP systolic 111–162; BP diastolic 55–90; PULSE 64–85; RESP 18
[2018-04-07] MEDS: ACCU-CHEK XX SCH (02:00)
[2018-04-07] MEDS: DIPHENHYDRAMINE 50 MG INJ IV PRN ×2 (06:58→17:15)
[2018-04-07] MEDS: Insulin NOVOLOG SS MODERATE Algorithm (SS with meals and bedtime) SC SCH ×4 (08:00→21:00)
[2018-04-07] MEDS: QUETIAPINE 100 MG TAB PO SCH ×2 (08:22→21:05)
[2018-04-07] MEDS: BUSPIRONE 10 MG TAB PO SCH ×2 (08:22→21:05)
[2018-04-07] MEDS: CALCITRIOL 0.25 MCG CAP PO SCH (08:22)
[2018-04-07] MEDS: CITALOPRAM 20 MG TAB PO SCH (08:22)
[2018-04-07] MEDS: PANTOPRAZOLE (EC) 40 MG TAB PO SCH (08:22)
[2018-04-07] MEDS: MULTIVIT/CA CARB/B CMPLX/FA TAB PO SCH (08:22)
[2018-04-07] MEDS: SEVELAMER CARBONATE 0.8 GM PKT PO SCH ×3 (08:22→17:17)
[2018-04-07] MEDS: LEVETIRACETAM 500 MG TAB PO SCH ×2 (08:23→21:05)
[2018-04-07] MEDS: CHOLECALCIFEROL 2,000 UNIT CAP PO SCH (08:23)
[2018-04-07] MEDS: NIFEdipine (XL) 30 MG TAB PO SCH (08:23)
[2018-04-07] MEDS: LABETALOL 200 MG TAB PO SCH ×2 (08:23→21:06)
[2018-04-07] MEDS: CEFTRIAXONE 1 GM/NS 50 ML IVPB SCH (08:28)
--- NOTE | 2018-04-07 09:02 | PN ---
DATE: 04/07/2018 SUBJECTIVE: The patient is stable, no events overnight. OBJECTIVE: VITAL SIGNS: Blood pressure is 165/80, pulse 76, respiration 18, temperature 98.9. HEENT: Head is normocephalic. NECK: Supple. HEART: Regular rate. LUNGS: Show diminished breath sounds at base. ABDOMEN: Soft, nontender to palpation without rebound or guarding. EXTREMITIES: Negative for clubbing, cyanosis, no edema. DERMATOLOGIC: No rashes. MUSCULOSKELETAL: No joint effusion. NEUROLOGIC: No change in exam. MEDICATIONS: Reviewed. LABORATORY DATA: Has been reviewed. ASSESSMENT AND PLAN: 1. End-stage renal disease. The patient is scheduled for dialysis today. 2. Access. The patient has Perm-A-Cath. Monitor closely with hemodialysis. If blood flow and dial ysis flow pressures are elevated, the patient may require a Perm-A-Cath exchange. 3. Mineral bone disorder. Monitor calcium and phosphorus levels. Continue vitamin D analogs and ph osphate binders. 4. Volume overload, improving. 5. Liver disease with recurrent ascites. The patient may require another paracentesis. Will defer to GI. 6. Hypertension. Continue current blood pressure regimen. 7. Gastritis. Continue proton pump inhibitor. 8. History of depressive disorder. Continue Seroquel. 9. Supraventricular tachycardia. The patient is completing course of antibiotics. Dictated By: SHILO REICH/ANTONINO Conf#: [id number] DID#: [id number] CC: JF KAISER MD;*EndCC*
--- NOTE | 2018-04-07 11:19 | NUR ---
CM UPDATE: Spoke with Fina at [facility] ([phone]) and faxed OT Notes per her request at [phone]. Also discussed with Fina SNF placement and Outpatient dialysis arrangement. Per Fina she will work on it and to contact [facility] regarding dialysis arrangement. Spoke with [facility] ([phone]) and faxed HD packet and confirmed it was received. Per [facility] she will work with Fina regarding Outpatient Dialysis arrangement and SNF placement. GIULIANO will continue to follow.
--- NOTE | 2018-04-07 11:23 | PN ---
Date/Time of Note Date/Time of Note DATE: 04/07/18 TIME: 11:22 Assessment/Plan VTE Prophylaxis Risk score (from Ns)>0 risk: 5 SCD applied (from Ns): Yes Pharmacological prophylaxis: NA/contraindicated Pharm contraindication: liver dx, renal impairment Lines/Catheters [facility] PICC Line Central line still needed: Yes Urinary Cath still in place: No (HD pt) Assessment/Plan Hospital Course 52 yo female with ESRD and diarrhea left AMA 03/16 and returned with abdominal pain. 1. Abdominal pain -secondary to ascites -Ascites fluid: WBC 1886 -improved 2. Diarrhea -O/P negative. C diff negative -improved 3. Mildly elevated lipase with mid abd pain radiating to back -resolved 4. Mild generalized small and large bowel wall thickening which per CT 03/01 could represent third spacing. 5. Hemorrhoids per pt 6. Mild hepatomegaly 7. Anemia, likely due to chronic disease -Ferritin high, Iron wnl, TIBC low, B12 wnl, folate wnl, FOB negative -no evidence of GI bleeding 8. End stage renal disease on HD 9. Cardiomegaly with mild lower lung pulmonary edema with small left effusion and mild diffuse ascites 10. Anasarca and ascites -s/p pracentesisi 03/15, 03/19, 03/26, 03/30 11. Diabetes 12. Hypertension 13. Elevated alk phos secondary to chronic liver disease 14. Mildly dilated biliary system with CBD measuring 10mm -s/p ercp 15. Chronic liver disease 16. Spontaneous bacterial peritonitis -started on cefotaxime 2 gm IV q 8 hours -cultures negative. Plan: Paracentesis, Cell count, cx, fungal, afb Recommend Cefotaxime 2 gm IV q 8 hours, hospital does not carry, Rocephin started Continue with diet as tolerated Continue with PPI PRN pain management WBC count and culture of peritoneal fluid with next paracentesis Pt examined and plan of care discussed with Dr. Webb Result Diagram: 04/03/18 1521 04/03/18 0925 Results 24hrs Laboratory Tests Test 04/06/18 11:54 04/06/18 12:30 04/06/18 17:06 04/06/18 21:36 Bedside Glucose 68 L 73 136 129 Test 04/07/18 08:20 Bedside Glucose 98 Exam/Review of Systems Vital Signs Vitals Vital Signs Date Temp Pulse Resp B/P (MAP) Pulse Ox O2 O2 Flow FiO2 Time Delivery Rate 04/07/18 97.9 66 18 162/82 98 Room Air 08:00 (108) Intake and Output 04/06/18 04/06/18 04/07/18 1515:00 23:00 07:00 IntakeIntake Total 50 ml BalanceBalance 50 ml Medications Medications Current Medications Ondansetron HCl (Zofran Inj) 4 mg Q6H PRN IV NAUSEA AND/OR VOMITING Last administered on 04/03/18 13:37; Admin Dose 4 MG; Start 03/16/18 at 18:30 Clonidine (Catapres) 0.1 mg Q6H PRN PO ELEVATED BLOOD PRESSURE Last administered on 03/18/18 02:50; Admin Dose 0.1 MG; Start 03/16/18 at 20:30 Calcitriol (Rocaltrol) 0.25 mcg DAILY PO Last administered on 04/07/18 08:22; Admin Dose 0.25 MCG; Start 03/17/18 at 09:00 Levetiracetam (Keppra) 500 mg BID PO Last administered on 04/07/18 08:23; Admin Dose 500 MG; Start 03/16/18 at 21:00 Nifedipine (Procardia Xl) 30 mg DAILY PO Last administered on 04/06/18 08:14; Admin Dose 30 MG; Start 03/17/18 at 09:00 Pantoprazole (Protonix Tab) 40 mg AC BREAKFAST PO Last administered on 04/07/18 08:22; Admin Dose 40 MG; Start 03/17/18 at 07:00 Quetiapine Fumarate (Seroquel) 300 mg DAILY PO Last administered on 04/07/18 08:22; Admin Dose 300 MG; Start 03/17/18 at 09:00 Sevelamer Carbonate (Renvela) 1.6 gm WITH MEALS PO Last administered on 04/07/18 08:22; Admin Dose 1.6 GM; Start 03/17/18 at 08:00 Miscellaneous Information 1 ea NOTE XX ; Start 03/16/18 at 21:30 Glucose (Glutose) 15 gm Q15M PRN PO DECREASED GLUCOSE; Start 03/16/18 at 21:30 Glucose (Glutose) 22.5 gm Q15M PRN PO DECREASED GLUCOSE; Start 03/16/18 at 21:30 Dextrose (D50w Syringe) 25 ml Q15M PRN IV DECREASED GLUCOSE; Start 03/16/18 at 21:30 Dextrose (D50w Syringe) 50 ml Q15M PRN IV DECREASED GLUCOSE; Start 03/16/18 at 21:30 Glucagon (Glucagen) 1 mg Q15M PRN IM DECREASED GLUCOSE; Start 03/16/18 at 21:30 Glucose (Glutose) 15 gm Q15M PRN BUCCAL DECREASED GLUCOSE; Start 03/16/18 at 21:30 Labetalol HCl (Normodyne) 200 mg BID PO Last administered on 04/06/18 21:40; Admin Dose 200 MG; Start 03/16/18 at 22:00 Loperamide HCl (Imodium Cap) 2 mg Q6H PRN PO diarrhea Last administered on 03/20/18at 01:12; Admin Dose 2 MG; Start 03/17/18 at 03:30 Acetaminophen (Tylenol Tab) 650 mg Q6H PRN PO MILD PAIN(1-3)OR ELEVATED TEMP Last administered on 03/19/18at 07:55; Admin Dose 650 MG; Start 03/17/18 at 14: 00 Hydralazine HCl (Apresoline) 25 mg Q6H PRN PO ELEVATED SYSTOLIC BP Last administered on 03/19/18 18:13; Admin Dose 25 MG; Start 03/18/18 at 05:30 Heparin Sodium (Porcine) (Heparin (1000 Units/ml)) 2,300 unit AFTER DIALYSIS CATHETER Last administered on 04/03/18 13:04; Admin Dose 2,300 UNIT; Start 03/18/18 at 22:00 Collagenase (Santyl) 1 applic PRN PRN TOP WHEN SOILED Last administered on 03/23/18 21:45; Admin Dose 1 APPLIC; Start 03/19/18 at 19:30 Hydralazine HCl (Apresoline) 10 mg Q6H PRN IV elevated BP Last administered on 04/06/18 03:25; Admin Dose 10 MG; Start 03/19/18 at 19:30 Epoetin Clinton (Epogen (Esrd)) 10,000 units MoWeFr@17 SC Last administered on 04/05/18 18:26; Admin Dose 10,000 UNITS; Start 03/22/18 at 17:00 Multivit/Ca Carb/ B Cmplx/FA/Prenat (Alena-Martin) 1 tab DAILY PO Last administered on 04/07/18 08:22; Admin Dose 1 TAB; Start 03/24/18 at 09:00 Quetiapine Fumarate (Seroquel) 300 mg QHS PO Last administered on 04/06/18 21:40; Admin Dose 300 MG; Start 03/27/18 at 21:00 Citalopram Hydrobromide (Celexa) 20 mg DAILY PO Last administered on 04/07/18 08:22; Admin Dose 20 MG; Start 03/27/18 at 10:30 Buspirone HCl (Buspar) 10 mg BID PO Last administered on 04/07/18 08:22; Admin Dose 10 MG; Start 03/27/18 at 10:30 Diagnostic Test (Pha) (Accu-Chek) 1 ea 02 XX ; Start 03/30/18 at 02:00 Cholecalciferol (Vitamin D) 2,000 unit DAILY PO Last administered on 04/07/18 08:23; Admin Dose 2,000 UNIT; Start 03/30/18 at 09:30 Insulin Aspart (Novolog Insulin Pen) (Adult SC Insulin - Moder... WITH MEALS BEDTIME SC ; Start 03/30/18 at 12:00 Ceftriaxone Sodium 50 ml @ 100 mls/hr Q24H IVPB Last administered on 04/07/18 08:28; Admin Dose 100 MLS/HR; Start 04/01/18 at 09:30 Morphine Sulfate (morphine) 10 mg Q4H PRN PO SEVERE PAIN LEVEL 7-10 Last administered on 04/06/18 16:35; Admin Dose 10 MG; Start 04/03/18 at 13:30 Diphenhydramine HCl (Benadryl) 50 mg Q6H PRN IV itching Last administered on 04/07/18 06:58; Admin Dose 50 MG; Start 04/04/18 at 06:00 ROBERT GOODRICH Apr 07, 2018 11:23
--- NOTE | 2018-04-07 12:00 | NUR ---
PT NOTE [facility] Patient: Abiodun Isidro : 1965 Age/Sex: 52/F Unit#: [id number] Room/Bed: 5539/A User: Bibi Dubon PTA Date: 04/07/18 12:00 Type: PT Technical Record Therapy day number 3 Subjective Current complaint of pain Pain Scale NUMERIC Pain Intensity 10 (0-10) Patient Stated Goal for Pain Relief 0 (0-10) Pain Level Comment sacral/coccyx area Exercise Assessment Label Bilat Lower Extremity Exercise Type Active ROM Additional Exercise Comments APs, heel slides, hip abd/add, SLR 3x10. Exercise Start Time 11:35 Exercise End Time 12:00 Total Exercise Time 25 min (8-127) Additional Mobility Comments repositioning Patient uses wheelchair Not Applicable Safety Judgement Poor Activity Tolerance Poor Post Treatment Pain Intensity 10 0-10 Total Treament Time 25 min (8-127) Total Minutes 25 Total Units 2 PT Technical Record Comment S: AGUSTO Spencer cleared pt for PT. Pt c/o 10 sacral/coccyx pain and was premedicated. Stated, "It feel like a burning pain whenever I move." With max encouragement, pt agreeable to tx O: Received pt in bed w/ HOB elevated. Performed AROME in semifowler; see technical record for therapeutic exercises. Pt refused OOB activity d/t increasing sacral/coccys pain. Educated pt on benefits and importance of OOB activity and despite max encouragement pt continued to refuse. Pt agreeable to repositioning. Positioned pt to comfort, L sidelying. Scooted to HOB w/ assistance from RN. Call light/phone within reach. Bed alarm on. Needs met. A: Poor tolerance to tx. Limited due to pain P: Continue w/ POC and progress as tolerated
--- NOTE | 2018-04-07 15:54 | NUR ---
PARACENTESIS Accdg to Ultrasound, they were not able to go forward with paracentesis due to the fact that the patient did not have enough fluid
--- NOTE | 2018-04-07 16:00 | NUR ---
Case Mngt: Received a call from Linda with [facility] ([phone]; F:[phone]) requesting for Psych notes. Per Linda, she got patient referral from Nate with [facility]. Psych Notes faxed as requested with confirmation.
--- NOTE | 2018-04-07 16:29 | PN ---
Date/Time of Note Date/Time of Note DATE: 04/07/18 TIME: 16:28 Assessment/Plan VTE Prophylaxis Risk score (from Nsg)>0 risk: 5 SCD applied (from Nsg): Yes Pharmacological prophylaxis: heparin Lines/Catheters IV Catheter Type (from Nrsg): Mid Line Central line still needed: Yes Urinary Cath still in place: No (HD pt) Assessment/Plan Hospital Course Patient is undergoing hemodialysis, no nausea and vomiting per RN, pending custodial facility placement. Assessment/Plan -Abdominal pain status post ERCP with sphincterectomy, removal of stone and stenting by Dr. Webb. -Chronic liver disease, likely cirrhotic. -Anasarca and ascites, s/p paracentesis on 03/15, 03/19, 03/26, 03/30. -Hemodialysis dependent end-stage renal disease. Continue hemodialysis per nephrology. Dr. Bledsoe is following in nephrology consultation -Hypertension, continue Procardia and hydralazine as needed. -Diabetes, NovoLog per mild algorithm sliding scale -Seizure disorder, continue Keppra -Gastritis, continue PPI -Anemia of chronic disease, continue Epogen -Depressive disorder with psychosis. Continue Seroquel. Further recommendations based on clinical course. Plan of care discussed with Dr. Smith. Result Diagram: 04/03/18 1521 04/03/18 0925 Results 24hrs Laboratory Tests Test 04/06/18 17:06 04/06/18 21:36 04/07/18 08:20 04/07/18 13:05 Bedside Glucose 136 129 98 102 Exam/Review of Systems Vital Signs Vitals Vital Signs Date Temp Pulse Resp B/P (MAP) Pulse Ox O2 O2 Flow FiO2 Time Delivery Rate 04/07/18 98.0 71 18 140/90 97 Room Air 14:00 (107) Intake and Output 04/06/18 04/06/18 04/07/18 1515:00 23:00 07:00 IntakeIntake Total 50 ml BalanceBalance 50 ml Exam Constitutional: alert, oriented Respiratory: clear to auscultation Cardiovascular: rnl pulse Gastrointestinal: soft, distended Musculoskeletal: nl extremities to inspection Extremities: normal pulses Additional Comments Left chest tunneled hemodialysis catheter Medications Medications Current Medications Ondansetron HCl (Zofran Inj) 4 mg Q6H PRN IV NAUSEA AND/OR VOMITING Last administered on 04/03/18 13:37; Admin Dose 4 MG; Start 03/16/18 at 18:30 Clonidine (Catapres) 0.1 mg Q6H PRN PO ELEVATED BLOOD PRESSURE Last administered on 03/18/18 02:50; Admin Dose 0.1 MG; Start 03/16/18 at 20:30 Calcitriol (Rocaltrol) 0.25 mcg DAILY PO Last administered on 04/07/18 08:22; Admin Dose 0.25 MCG; Start 03/17/18 at 09:00 Levetiracetam (Keppra) 500 mg BID PO Last administered on 04/07/18 08:23; Admin Dose 500 MG; Start 03/16/18 at 21:00 Nifedipine (Procardia Xl) 30 mg DAILY PO Last administered on 04/06/18 08:14; Admin Dose 30 MG; Start 03/17/18 at 09:00 Pantoprazole (Protonix Tab) 40 mg AC BREAKFAST PO Last administered on 04/07/18 08:22; Admin Dose 40 MG; Start 03/17/18 at 07:00 Quetiapine Fumarate (Seroquel) 300 mg DAILY PO Last administered on 04/07/18 08:22; Admin Dose 300 MG; Start 03/17/18 at 09:00 Sevelamer Carbonate (Renvela) 1.6 gm WITH MEALS PO Last administered on 04/07/18 13:05; Admin Dose 1.6 GM; Start 03/17/18 at 08:00 Miscellaneous Information 1 ea NOTE XX ; Start 03/16/18 at 21:30 Glucose (Glutose) 15 gm Q15M PRN PO DECREASED GLUCOSE; Start 03/16/18 at 21:30 Glucose (Glutose) 22.5 gm Q15M PRN PO DECREASED GLUCOSE; Start 03/16/18 at 21: 30 Dextrose (D50w Syringe) 25 ml Q15M PRN IV DECREASED GLUCOSE; Start 03/16/18 at 21:30 Dextrose (D50w Syringe) 50 ml Q15M PRN IV DECREASED GLUCOSE; Start 03/16/18 at 21:30 Glucagon (Glucagen) 1 mg Q15M PRN IM DECREASED GLUCOSE; Start 03/16/18 at 21:30 Glucose (Glutose) 15 gm Q15M PRN BUCCAL DECREASED GLUCOSE; Start 03/16/18 at 21:30 Labetalol HCl (Normodyne) 200 mg BID PO Last administered on 04/06/18 21:40; Admin Dose 200 MG; Start 03/16/18 at 22:00 Loperamide HCl (Imodium Cap) 2 mg Q6H PRN PO diarrhea Last administered on 03/20/18 01:12; Admin Dose 2 MG; Start 03/17/18 at 03:30 Acetaminophen (Tylenol Tab) 650 mg Q6H PRN PO MILD PAIN(1-3)OR ELEVATED TEMP Last administered on 03/19/18 07:55; Admin Dose 650 MG; Start 03/17/18 at 14:00 Hydralazine HCl (Apresoline) 25 mg Q6H PRN PO ELEVATED SYSTOLIC BP Last administered on 03/19/18 18:13; Admin Dose 25 MG; Start 03/18/18 at 05:30 Heparin Sodium (Porcine) (Heparin (1000 Units/ml)) 2,300 unit AFTER DIALYSIS CATHETER Last administered on 04/03/18 13:04; Admin Dose 2,300 UNIT; Start 03/18/18 at 22:00 Collagenase (Santyl) 1 applic PRN PRN TOP WHEN SOILED Last administered on 03/23/18 21:45; Admin Dose 1 APPLIC; Start 03/19/18 at 19:30 Hydralazine HCl (Apresoline) 10 mg Q6H PRN IV elevated BP Last administered on 04/06/18 03:25; Admin Dose 10 MG; Start 03/19/18 at 19:30 Epoetin Clinton (Epogen (Esrd)) 10,000 units MoWeFr@17 SC Last administered on 04/05/18 18:26; Admin Dose 10,000 UNITS; Start 03/22/18 at 17:00 Multivit/Ca Carb/ B Cmplx/FA/Prenat (Alena-Martin) 1 tab DAILY PO Last administered on 04/07/18 08:22; Admin Dose 1 TAB; Start 03/24/18 at 09:00 Quetiapine Fumarate (Seroquel) 300 mg QHS PO Last administered on 04/06/18 21:40; Admin Dose 300 MG; Start 03/27/18 at 21:00 Citalopram Hydrobromide (Celexa) 20 mg DAILY PO Last administered on 04/07/18 08:22; Admin Dose 20 MG; Start 03/27/18 at 10:30 Buspirone HCl (Buspar) 10 mg BID PO Last administered on 04/07/18 08:22; Admin Dose 10 MG; Start 03/27/18 at 10:30 Diagnostic Test (Pha) (Accu-Chek) 1 ea 02 XX ; Start 03/30/18 at 02:00 Cholecalciferol (Vitamin D) 2,000 unit DAILY PO Last administered on 04/07/18 08:23; Admin Dose 2,000 UNIT; Start 03/30/18 at 09:30 Insulin Aspart (Novolog Insulin Pen) (Adult SC Insulin - Moder... WITH MEALS BEDTIME SC ; Start 03/30/18 at 12:00 Ceftriaxone Sodium 50 ml @ 100 mls/hr Q24H IVPB Last administered on 04/07/18 08:28; Admin Dose 100 MLS/HR; Start 04/01/18 at 09:30 Morphine Sulfate (morphine) 10 mg Q4H PRN PO SEVERE PAIN LEVEL 7-10 Last administered on 04/06/18 16:35; Admin Dose 10 MG; Start 04/03/18 at 13:30 Diphenhydramine HCl (Benadryl) 50 mg Q6H PRN IV itching Last administered on 04/07/18at 06:58; Admin Dose 50 MG; Start 04/04/18 at 06:00 BLAKE MORALES Apr 07, 2018 16:29
[2018-04-07] MEDS: EPOETIN 10000 UNITS/1 ML INJ (ESRD) SC SCH (17:16)
--- NOTE | 2018-04-07 18:15 | NUR ---
END OF SHIFT NOTES: PT STABLE, ALERT & ORIENTED X3 WITH CONFUSION NOTED. ACCUCHECKS DONE, BLOOD GLUCOSE WNL. NO DISTRESS NOTED. HD DONE TODAY IN THE AFTERNOON. ABDOMINAL U/S DONE TODAY. NOT ENOUGH FLUID FOR PARACENTESIS. INSTRUCTED PT TO CALL FOR ASSISTANCE. VS WNL.HOURLY ROUNDING. CALL LIGHT WITHIN REACH.ALL NEEDS MET. NO NEW COMPLAINTS
--- NOTE | 2018-04-07 20:00 | NUR ---
Pt completed Hemodialysis well total removal 2000 ml. Pt endorsed with VSS to primary RN Marcela Reynolds
[2018-04-07] MEDS: HEPARIN 1000 UNITS/ML 10 ML INJ CATHETER SCH (20:11)
[2018-04-08] MEDS: DIPHENHYDRAMINE 50 MG INJ IV PRN ×2 (01:52→08:34)
[2018-04-08 02:00] VITALS: BP 139/71; PULSE 75; RESP 18
[2018-04-08] MEDS: ACCU-CHEK XX SCH (02:00)
[2018-04-08] MEDS: PANTOPRAZOLE (EC) 40 MG TAB PO SCH (06:00)
--- NOTE | 2018-04-08 06:34 | NUR ---
END OF SHIFT REPORT Pt alert and oriented with intermittent confusion. Pt finished dialysis at 2100. Pt on bed in low position with call light within reach and bed alarm activated. Vitals stable. All due meds given. No acute distress noted. Will endorse pt to AM shift nurse for continuation of care.
[2018-04-08 07:19] VITALS: BP 151/78; PULSE 69; RESP 17
[2018-04-08] MEDS: Insulin NOVOLOG SS MODERATE Algorithm (SS with meals and bedtime) SC SCH ×4 (08:00→20:41)
[2018-04-08] MEDS: MULTIVIT/CA CARB/B CMPLX/FA TAB PO SCH (08:32)
[2018-04-08] MEDS: LEVETIRACETAM 500 MG TAB PO SCH ×2 (08:33→20:26)
[2018-04-08] MEDS: LABETALOL 200 MG TAB PO SCH ×2 (08:33→20:38)
[2018-04-08] MEDS: QUETIAPINE 100 MG TAB PO SCH ×2 (08:33→20:26)
[2018-04-08] MEDS: CITALOPRAM 20 MG TAB PO SCH (08:33)
[2018-04-08] MEDS: CHOLECALCIFEROL 2,000 UNIT CAP PO SCH (08:34)
[2018-04-08] MEDS: NIFEdipine (XL) 30 MG TAB PO SCH (08:34)
[2018-04-08] MEDS: CALCITRIOL 0.25 MCG CAP PO SCH (08:34)
[2018-04-08] MEDS: SEVELAMER CARBONATE 0.8 GM PKT PO SCH ×3 (08:36→17:36)
[2018-04-08] MEDS: morphine LIQ (10 MG/5 ML) CUP PO PRN ×2 (08:38→20:26)
[2018-04-08] MEDS: CEFTRIAXONE 1 GM/NS 50 ML IVPB SCH ×2 (08:38→10:02)
[2018-04-08] MEDS: BUSPIRONE 5 MG TAB PO SCH ×2 (10:02→20:26)
--- NOTE | 2018-04-08 10:12 | PN ---
DATE: 04/08/2018 SUBJECTIVE: The patient had hemodialysis yesterday, tolerated it well. I spoke with the patient reg eddi outpatient dialysis. She informed me that she was previously getting her dialysis at [facility], but now that she is presumably moving here with her daughter she was interested in a possible dial ysis center close to her current city. Otherwise, no other events noted overnight. No fevers, chill s, nausea, vomiting. OBJECTIVE: VITAL SIGNS: Blood pressure is 151/78, respirations 18, pulse 69, temperature 98.2. HEENT: Head is normocephalic. NECK: Supple. HEART: Regular rate. LUNGS: Show diminished breath sounds at the base. ABDOMEN: Soft, nontender to palpation without rebound or guarding. EXTREMITIES: Negative for clubbing, cyanosis, no edema. DERMATOLOGIC: No rashes. MUSCULOSKELETAL: No joint effusion. NEUROLOGIC: No change in exam. MEDICATIONS: Reviewed. LABORATORY DATA: From 04/07/2018 was reviewed. ASSESSMENT AND PLAN: 1. End-stage renal disease. The patient had hemodialysis yesterday, tolerated well. Plan for dialys is tomorrow. 2. Abscess. The patient is status post Perm-A-Cath, currently working well. Continue to monitor. 3. Mineral bone disorder. Monitor calcium and phosphorus levels. Continue vitamin D analogs, phos binders. 4. Volume overload, improving. Continue ultrafiltration dialysis. 5. Liver disease with recurrent ascites/SBP. The has completed a course of antibiotics, continue to monitor. Continue p.r.n. paracentesis per GI. 6. Hypertension. Continue current blood pressure regimen. 7. Gastritis. Continue proton pump inhibitor. 8. Depressive disorder. Continue Seroquel. Dictated By: SHILO LIU DO NR/NTS Conf#: [id number] DID#: [id number] CC: JF KAISER MD; RAYMUNDO DOUGLASS MD;*EndCC*
--- NOTE | 2018-04-08 11:00 | NUR ---
PT NOTES [facility] Patient: Abiodun Isidro : 1965 Age/Sex: 52/F Unit#: [id number] Room/Bed: 5539/A User: Bryant Stevenson PTA Date: 04/08/18 11:00 Type: PT Technical Record Therapy day number 4 Subjective Current complaint of pain Pain Scale NUMERIC Pain Intensity 8 (0-10) Patient Stated Goal for Pain Relief 0 (0-10) Pain Level Comment SACRAL AREA Exercise Assessment Label Bilat Lower Extremity Exercise Type Active ROM Exercise Start Time 10:20 Exercise End Time 10:45 Total Exercise Time 25 min (8-127) Transfer Training Start Time 10:45 Supine to Sit Minimum Assist Bed Mobility Sit to Supine Moderate Assist Sitting Tolerance 5 min Transfer Training End Time 11:00 Total Transfer Training Time 15 min (8-127) Static Sitting Balance Fair Dynamic Sitting Balance Fair minus Safety Judgement Poor Activity Tolerance Poor Post Treatment Pain Intensity 8 0-10 Total Treament Time 40 min (8-127) Total Minutes 40 Total Units 3 PT Technical Record Comment PT NOTES; SAME TREATMENT PLAN GIVEN; SITTED APPROX 5 MIN AT EDGE OF BED TODAY; SAFELY BACK TO BED AFTER TREATMENT; THERAEX IN SUPINE DONE; PATIENT NEEDS MIN/MOD ASSIST WITH ALL ACTIVITIES TODAY; NEEDS LOTS OF ENCOURAGEMENT TO INCREASE PARTICIPATION WITH THERAPY. WILL CONTINUE CURRENT PLAN OF CARE.
[2018-04-08 14:28] VITALS: BP 168/85; PULSE 73; RESP 18
--- NOTE | 2018-04-08 15:52 | PN ---
Date/Time of Note Date/Time of Note DATE: 04/08/18 TIME: 15:49 Assessment/Plan VTE Prophylaxis Risk score (from Ns)>0 risk: 4 SCD applied (from Ns): Yes Pharmacological prophylaxis: NA/contraindicated Pharm contraindication: liver dx Lines/Catheters IV C[facility]ter Type [facility]from [facility] permacath Urinary Cath still in place: No (HD pt) Assessment/Plan Hospital Course No acute events overnight patient remains hemodynamically stable, tolerates diet without nausea complains of occasional generalized pain and itching, pending halfway facility placement. Assessment/Plan -Abdominal pain status post ERCP with sphincterectomy, removal of stone and stenting by Dr. Webb. -Chronic liver disease, likely cirrhotic. -Anasarca and ascites, s/p paracentesis on 03/15, 03/19, 03/26, 03/30. -Hemodialysis dependent end-stage renal disease. Continue hemodialysis per nephrology. Dr. Bledsoe is following in nephrology consultation -Hypertension, continue Procardia and hydralazine as needed. -Diabetes, NovoLog per mild algorithm sliding scale -Seizure disorder, continue Keppra -Gastritis, continue PPI -Anemia of chronic disease, continue Epogen -Depressive disorder with psychosis. Continue Seroquel. Further recommendations based on clinical course. Plan of care discussed with Dr. Smith. Result Diagram: 04/07/18 1833 04/07/18 1833 Results 24hrs Laboratory Tests Test 04/07/18 17:11 04/07/18 18:33 04/07/18 21:04 04/08/18 08:31 Bedside Glucose 93 131 95 White Blood Count 9.8 Red Blood Count 3.14 L Hemoglobin 7.8 L Hematocrit 25.0 L Mean Corpuscular 79.6 L Volume Mean Corpuscular 24.8 L Hemoglobin Mean Corpuscular 31.2 L Hemoglobin Concent Red Cell 19.4 H Distribution Width Platelet Count 189 Mean Platelet Volume 9.8 Immature 0.200 Granulocytes % Neutrophils % 64.1 Lymphocytes % 16.2 Monocytes % 9.4 Eosinophils % 9.5 H Basophils % 0.6 Nucleated Red Blood 0.0 Cells % Immature 0.020 Granulocytes # Neutrophils # 6.3 Lymphocytes # 1.6 Monocytes # 0.9 Eosinophils # 0.9 H Basophils # 0.1 Nucleated Red Blood 0.0 Cells # Sodium Level 133 L Potassium Level 5.5 H Chloride Level 97 Carbon Dioxide Level 26 Anion Gap 10 Blood Urea Nitrogen 35 H Creatinine 4.42 H Est Glomerular 13 L Filtrat Rate mL/min Glucose Level 91 Calcium Level 8.3 L Test 04/08/18 12:43 Bedside Glucose 107 Exam/Review of Systems Vital Signs Vitals Vital Signs Date Temp Pulse Resp B/P (MAP) Pulse Ox O2 O2 Flow FiO2 Time Delivery Rate 04/08/18 98.4 73 18 168/85 99 14:28 (112) 04/07/18 Room Air 20:57 Intake and Output 04/07/18 04/07/18 04/08/18 1414:59 22:59 06:59 IntakeIntake Total 610 ml 400 ml OutputOutput Total 200 ml BalanceBalance 610 ml 200 ml Exam Constitutional: alert, oriented Respiratory: clear to auscultation Cardiovascular: rnl pulse Gastrointestinal: soft, distended Musculoskeletal: nl extremities to inspection Extremities: normal pulses Additional Comments Left chest tunneled hemodialysis catheter Medications Medications Current Medications Ondansetron HCl (Zofran Inj) 4 mg Q6H PRN IV NAUSEA AND/OR VOMITING Last administered on 04/03/18 13:37; Admin Dose 4 MG; Start 03/16/18 at 18:30 Clonidine (Catapres) 0.1 mg Q6H PRN PO ELEVATED BLOOD PRESSURE Last administered on 03/18/18at 02:50; Admin Dose 0.1 MG; Start 03/16/18 at 20:30 Calcitriol (Rocaltrol) 0.25 mcg DAILY PO Last administered on 04/08/18 08:34; Admin Dose 0.25 MCG; Start 03/17/18 at 09:00 Levetiracetam (Keppra) 500 mg BID PO Last administered on 04/08/18 08:33; Admin Dose 500 MG; Start 03/16/18 at 21:00 Nifedipine (Procardia Xl) 30 mg DAILY PO Last administered on 04/08/18 08:34; Admin Dose 30 MG; Start 03/17/18 at 09:00 Pantoprazole (Protonix Tab) 40 mg AC BREAKFAST PO Last administered on 04/08/18 06:00; Admin Dose 40 MG; Start 03/17/18 at 07:00 Quetiapine Fumarate (Seroquel) 300 mg DAILY PO Last administered on 04/08/18 08:33; Admin Dose 300 MG; Start 03/17/18 at 09:00 Sevelamer Carbonate (Renvela) 1.6 gm WITH MEALS PO Last administered on 04/08/18 12:44; Admin Dose 1.6 GM; Start 03/17/18 at 08:00 Miscellaneous Information 1 ea NOTE XX ; Start 03/16/18 at 21:30 Glucose (Glutose) 15 gm Q15M PRN PO DECREASED GLUCOSE; Start 03/16/18 at 21:30 Glucose (Glutose) 22.5 gm Q15M PRN PO DECREASED GLUCOSE; Start 03/16/18 at 21:30 Dextrose (D50w Syringe) 25 ml Q15M PRN IV DECREASED GLUCOSE; Start 03/16/18 at 21:30 Dextrose (D50w Syringe) 50 ml Q15M PRN IV DECREASED GLUCOSE; Start 03/16/18 at 21:30 Glucagon (Glucagen) 1 mg Q15M PRN IM DECREASED GLUCOSE; Start 03/16/18 at 21:30 Glucose (Glutose) 15 gm Q15M PRN BUCCAL DECREASED GLUCOSE; Start 03/16/18 at 21:30 Labetalol HCl (Normodyne) 200 mg BID PO Last administered on 04/08/18 08:33; Admin Dose 200 MG; Start 03/16/18 at 22:00 Loperamide HCl (Imodium Cap) 2 mg Q6H PRN PO diarrhea Last administered on 03/20/18at 01:12; Admin Dose 2 MG; Start 03/17/18 at 03:30 Acetaminophen (Tylenol Tab) 650 mg Q6H PRN PO MILD PAIN(1-3)OR ELEVATED TEMP Last administered on 03/19/18at 07:55; Admin Dose 650 MG; Start 03/17/18 at 14:00 Hydralazine HCl (Apresoline) 25 mg Q6H PRN PO ELEVATED SYSTOLIC BP Last administered on 03/19/18at 18:13; Admin Dose 25 MG; Start 03/18/18 at 05:30 Heparin Sodium (Porcine) (Heparin (1000 Units/ml)) 2,300 unit AFTER DIALYSIS CATHETER Last administered on 04/07/18 20:11; Admin Dose 2,300 UNIT; Start 03/18/18 at 22:00 Collagenase (Santyl) 1 applic PRN PRN TOP WHEN SOILED Last administered on 03/23/18 21:45; Admin Dose 1 APPLIC; Start 03/19/18 at 19:30 Hydralazine HCl (Apresoline) 10 mg Q6H PRN IV elevated BP Last administered on 04/06/18 03:25; Admin Dose 10 MG; Start 03/19/18 at 19:30 Epoetin Clinton (Epogen (Esrd)) 10,000 units MoWeFr@17 SC Last administered on 04/07/18 17:16; Admin Dose 10,000 UNITS; Start 03/22/18 at 17:00 Multivit/Ca Carb/ B Cmplx/FA/Prenat (Alena-Martin) 1 tab DAILY PO Last administered on 04/08/18 08:32; Admin Dose 1 TAB; Start 03/24/18 at 09:00 Quetiapine Fumarate (Seroquel) 300 mg QHS PO Last administered on 04/07/18 21:05; Admin Dose 300 MG; Start 03/27/18 at 21:00 Citalopram Hydrobromide (Celexa) 20 mg DAILY PO Last administered on 04/08/18 08:33; Admin Dose 20 MG; Start 03/27/18 at 10:30 Diagnostic Test (Pha) (Accu-Chek) 1 ea 02 XX ; Start 03/30/18 at 02:00 Cholecalciferol (Vitamin D) 2,000 unit DAILY PO Last administered on 04/08/18at 08:34; Admin Dose 2,000 UNIT; Start 03/30/18 at 09:30 Insulin Aspart (Novolog Insulin Pen) (Adult SC Insulin - Moder... WITH MEALS BEDTIME SC ; Start 03/30/18 at 12:00 Ceftriaxone Sodium 50 ml @ 100 mls/hr Q24H IVPB Last administered on 04/08/18 10:02; Admin Dose 100 MLS/HR; Start 04/01/18 at 09:30 Morphine Sulfate (morphine) 10 mg Q4H PRN PO SEVERE PAIN LEVEL 7-10 Last administered on 04/08/18 08:38; Admin Dose 10 MG; Start 04/03/18 at 13:30 Diphenhydramine HCl (Benadryl) 50 mg Q6H PRN IV itching Last administered on 04/08/18at 08:34; Admin Dose 50 MG; Start 04/04/18 at 06:00 Buspirone HCl (Buspar) 10 mg BID PO Last administered on 04/08/18at 10:02; Admin Dose 10 MG; Start 04/08/18 at 09:00 BLAKE MORALES Apr 08, 2018 15:52
[2018-04-08 15:56] VITALS: BP 148/68; PULSE 81
--- NOTE | 2018-04-08 18:18 | NUR ---
Upon rounding on patients, patient reported that her bottom was hurting. Patient's back and sacrum assessed. Skin appears to be possibly broken secondary to maceration. No depth appreciated. Wound currently measures 1.5x1.5x0 cm. Photos taken with AGUSTO Martines. Lauren GALLAGHER notified and new order obtained to repeat wound consult. Order carried out.
--- NOTE | 2018-04-08 18:29 | NUR ---
EOSS: pt. A/Ox4; forgetful at times; VSS, no acute distress. C/O pain once this shift; pain meds given with adequate relief. Pt. here for fluid overload. IV ABX; held d/t midline being removed and no IV at this time; MD aware; IV attempts maid; waiting for new insertion next shift per pt. wanting to wait; MD aware. All other due meds given and needs attended to. Pending placement and wound consult. Hourly rounding done, bed alarm on, call light within reach, encouraged to call for assistance. Will continue to monitor and endorse care to oncoming nurse.
[2018-04-08 20:00] VITALS: BP 98/61; PULSE 73; RESP 18
--- NOTE | 2018-04-08 21:26 | NUR ---
patient needs IV insertion, we can only insert IV in right arm. pt has AV shunt in left arm, she had a MIDLINE in right arm to became painful ans swollen, Line was pulled out. I called ICU spoke Romero charge nurse who will attempt peripheral IV so we can administer antibiotics.
--- NOTE | 2018-04-08 22:09 | NUR ---
Called [facility] and spoke with Blanche to schedule dialysis for pt tomorrow at 0800. Will be busy tomorrow, can schedule dialysis 2-4pm but will note for them to do it ealier if possible. Confirmation #[id number]
[2018-04-09] VITALS (17 sets, daily range): BP systolic 104–178; BP diastolic 59–87; PULSE 67–81; RESP 18–20
[2018-04-09] MEDS: ACCU-CHEK XX SCH (02:00)
--- NOTE | 2018-04-09 05:30 | NUR ---
END OF SHIFT REPORT Pt alert and oriented with intermittent confusion. Pt on bed in low position with call light within reach and bed alarm activated. Vitals stable. All due meds given. No acute distress noted. Dialysis to be done today. AGUSTO Worrell from ICU inserted new peripheral iv on pt's right forearm. AM shift unable to complete antibiotics due to no iv access at the time. Will endorse pt to AM shift nurse for continuation of care. Addendum: 04/09/18 at 0701 by MARY AUGUSTIN RN Pt refused bed bath with hibiclens. Spoke with pt and educated regarding importance of hibiclens. Pt agreed to have one this morning. Will endorse to AM shift nurse.
[2018-04-09] MEDS: PANTOPRAZOLE (EC) 40 MG TAB PO SCH (06:19)
[2018-04-09] MEDS: morphine LIQ (10 MG/5 ML) CUP PO PRN ×2 (06:40→21:10)
[2018-04-09] MEDS: Insulin NOVOLOG SS MODERATE Algorithm (SS with meals and bedtime) SC SCH ×4 (08:00→20:14)
--- NOTE | 2018-04-09 08:36 | PN ---
DATE: 04/09/2018 SUBJECTIVE: The patient is stable, no events overnight. OBJECTIVE: VITAL SIGNS: Blood pressure is 142/86, respirations 18, pulse 73, temperature 97.3. HEENT: Head is normocephalic. NECK: Supple. HEART: Regular rate. LUNGS: Show diminished breath sounds at the base. ABDOMEN: Soft, nontender to palpation. No rebound or guarding. EXTREMITIES: Negative for clubbing, cyanosis, no edema. DERMATOLOGIC: No rashes. MUSCULOSKELETAL: No joint effusions. NEUROLOGIC: No change in exam. MEDICATIONS: Reviewed. LABORATORY DATA: Reviewed. ASSESSMENT AND PLAN: 1. End-stage renal disease. Plan is for hemodialysis today. We will dialyze 3 hours 3K bath, calci um 2.5. 2. Mineral bone disorder, monitor calcium and phosphorus levels. Continue vitamin D analogs and nel sphate binders. 3. Anemia. Continue to monitor hemoglobin and hematocrit levels. Continue Epogen as needed. Iron panel will be checked. 4. Volume overload, improving. Continue ultrafiltration dialysis. 5. Liver disease, cirrhosis with spontaneous bacterial peritonitis. The patient is completing antib iotic course. Continue to monitor. Follow up with GI. 6. Hypertension. Continue current blood pressure regimen. 7. Gastritis. Continue proton pump inhibitor. 8. Depressive disorder with psychosis. Continue Seroquel. Dictated By: SHILO LIU DO NR/NTS Conf#: [id number] DID#: [id number] CC: JF KAISER MD; RAYMUNDO DOUGLASS MD;*EndCC*
[2018-04-09] MEDS: SEVELAMER CARBONATE 0.8 GM PKT PO SCH ×3 (08:54→18:54)
[2018-04-09] MEDS: CHOLECALCIFEROL 2,000 UNIT CAP PO SCH (08:57)
[2018-04-09] MEDS: BUSPIRONE 5 MG TAB PO SCH ×2 (08:57→20:13)
[2018-04-09] MEDS: CITALOPRAM 20 MG TAB PO SCH (08:57)
[2018-04-09] MEDS: QUETIAPINE 100 MG TAB PO SCH ×2 (08:57→20:13)
[2018-04-09] MEDS: LEVETIRACETAM 500 MG TAB PO SCH ×2 (08:57→20:14)
[2018-04-09] MEDS: CALCITRIOL 0.25 MCG CAP PO SCH (08:57)
[2018-04-09] MEDS: LABETALOL 200 MG TAB PO SCH ×2 (08:58→20:17)
[2018-04-09] MEDS: NIFEdipine (XL) 30 MG TAB PO SCH (08:59)
[2018-04-09] MEDS: MULTIVIT/CA CARB/B CMPLX/FA TAB PO SCH (09:02)
[2018-04-09] MEDS: DIPHENHYDRAMINE 50 MG INJ IV PRN ×2 (09:02→19:04)
[2018-04-09] MEDS: CEFTRIAXONE 1 GM/NS 50 ML IVPB SCH (09:15)
--- NOTE | 2018-04-09 09:44 | NUR ---
Wound Care Consult: Patient is ESRD on HD. Patient A/O x 3, verbally responsive. Wound care team consulted for: Sacrococcyx healing pressure stage 3, fissure, discoloration, and maceration presence. Wound area with noted fissure at midline 1.2cm x 0.05cm. Old healing scar with noted dark discoloration at the middle area surrounded by macerated skin from moisture associated skin damage. Tender to touch, blanching skin noted on area. Periwound intact. Treatment recommendation include, cleanse area with normal saline, pat dry, apply silver alginate dressing and cover with foam border dressing daily and as needed. Bilateral lower heels keep intact and clean. WOCN spoke with patient to allow the staff to turn or encourage her to turn every 2 hours and have head of bed at 30 degree's only (Patient refuses to be turned every 2 hours and positions the bed at 45 degree's). Patient verbalized understanding and indicated that she will perform interventions suggested to prevent ulcer build-up. Unit staff made aware of conversation. Elevate heels with pillows to off-load Continue low -air loss mattress use. PATRICIA discussed with Aviva, unit endoscopy tech and treatment recommendation. Marito Major, RN MSN WOJOSE ALBERTO CM
--- NOTE | 2018-04-09 10:19 | CONS ---
Date/Time of Note Date/Time of Note DATE: 04/09/18 TIME: 10:16 Assessment/Plan Assessment/Plan Hospital Course 52 yo female with ESRD and diarrhea left AMA 03/16 and returned with abdominal pain. 1. Abdominal pain -secondary to ascites -Ascites fluid: WBC 1886 -improved 2. Diarrhea -O/P negative. C diff negative -improved 3. Mildly elevated lipase with mid abd pain radiating to back -resolved 4. Mild generalized small and large bowel wall thickening which per CT 03/01 could represent third spacing. 5. Hemorrhoids per pt 6. Mild hepatomegaly 7. Anemia, likely due to chronic disease -Ferritin high, Iron wnl, TIBC low, B12 wnl, folate wnl, FOB negative -no evidence of GI bleeding 8. End stage renal disease on HD 9. Cardiomegaly with mild lower lung pulmonary edema with small left effusion and mild diffuse ascites 10. Anasarca and ascites -s/p pracentesisi 03/15, 03/19, 03/26, 03/30 11. Diabetes 12. Hypertension 13. Elevated alk phos secondary to chronic liver disease 14. Mildly dilated biliary system with CBD measuring 10mm -s/p ercp 15. Chronic liver disease 16. Spontaneous bacterial peritonitis -started on cefotaxime 2 gm IV q 8 hours -cultures negative. CT scan of abd from 03/01 IMPRESSION: There is cardiomegaly with mild lower lung pulmonary edema along with a small left effusion with mild diffuse ascites and anasarca and this likely represent third spacing of fluid. Mild generalized small and large bowel wall thickening could represent edema related to third spacing. There is a fecal filled colon without obstruction or grossly visible appendicitis. Atherosclerotic disease is present. No renal or ureteral calculi with no evidence of hydronephrosis. Rounded hypodensity in the left upper pole kidney could represent a hemorrhagic cyst and can be correlated with MRI.. Mild hepatomegaly. Plan: paracentesis prn Recommend Cefotaxime 2 gm IV q 8 hours, hospital does not carry, Rocephin started, Rocephin x 10 days, started on 03/30 Continue with diet as tolerated Continue with PPI PRN pain management WBC count and culture of peritoneal fluid with next paracentesis Pt examined and plan of care discussed with Dr. Webb Result Diagram: 04/07/18 1833 04/07/18 1833 Results 24hrs Laboratory Tests Test 04/08/18 12:43 04/08/18 17:36 04/08/18 20:33 04/09/18 08:22 Bedside Glucose 107 88 81 97 Consultation Date/Type/Reason Admit Date/Time Mar 16, 2018 at 14:01 Initial Consult Date Exam/Review of Systems Vital Signs Vitals Vital Signs Date Temp Pulse Resp B/P (MAP) Pulse Ox O2 O2 Flow FiO2 Time Delivery Rate 04/09/18 97.8 69 18 153/72 97 Room Air 08:00 (99) Intake and Output 04/08/18 04/08/18 04/09/18 1414:59 22:59 06:59 IntakeIntake Total 840 ml 270 ml BalanceBalance 840 ml 270 ml Medications Medications Current Medications Ondansetron HCl (Zofran Inj) 4 mg Q6H PRN IV NAUSEA AND/OR VOMITING Last administered on 04/03/18 13:37; Admin Dose 4 MG; Start 03/16/18 at 18:30 Clonidine (Catapres) 0.1 mg Q6H PRN PO ELEVATED BLOOD PRESSURE Last administered on 03/18/18at 02:50; Admin Dose 0.1 MG; Start 03/16/18 at 20:30 Calcitriol (Rocaltrol) 0.25 mcg DAILY PO Last administered on 04/09/18 08:57; Admin Dose 0.25 MCG; Start 03/17/18 at 09:00 Levetiracetam (Keppra) 500 mg BID PO Last administered on 04/09/18 08:57; Admin Dose 500 MG; Start 03/16/18 at 21:00 Nifedipine (Procardia Xl) 30 mg DAILY PO Last administered on 04/08/18 08:34; Admin Dose 30 MG; Start 03/17/18 at 09:00 Pantoprazole (Protonix Tab) 40 mg AC BREAKFAST PO Last administered on 04/09/18 06:19; Admin Dose 40 MG; Start 03/17/18 at 07:00 Quetiapine Fumarate (Seroquel) 300 mg DAILY PO Last administered on 04/09/18 08:57; Admin Dose 300 MG; Start 03/17/18 at 09:00 Sevelamer Carbonate (Renvela) 1.6 gm WITH MEALS PO Last administered on 1/18/19at 08:54; Admin Dose 1.6 GM; Start 03/17/18 at 08:00 Miscellaneous Information 1 ea NOTE XX ; Start 03/16/18 at 21:30 Glucose (Glutose) 15 gm Q15M PRN PO DECREASED GLUCOSE; Start 03/16/18 at 21:30 Glucose (Glutose) 22.5 gm Q15M PRN PO DECREASED GLUCOSE; Start 03/16/18 at 21:30 Dextrose (D50w Syringe) 25 ml Q15M PRN IV DECREASED GLUCOSE; Start 03/16/18 at 21:30 Dextrose (D50w Syringe) 50 ml Q15M PRN IV DECREASED GLUCOSE; Start 03/16/18 at 21:30 Glucagon (Glucagen) 1 mg Q15M PRN IM DECREASED GLUCOSE; Start 03/16/18 at 21:30 Glucose (Glutose) 15 gm Q15M PRN BUCCAL DECREASED GLUCOSE; Start 03/16/18 at 21:30 Labetalol HCl (Normodyne) 200 mg BID PO Last administered on 04/08/18at 20:38; Admin Dose 200 MG; Start 03/16/18 at 22:00 Loperamide HCl (Imodium Cap) 2 mg Q6H PRN PO diarrhea Last administered on 03/20/18at 01:12; Admin Dose 2 MG; Start 03/17/18 at 03:30 Acetaminophen (Tylenol Tab) 650 mg Q6H PRN PO MILD PAIN(1-3)OR ELEVATED TEMP Last administered on 03/19/18at 07:55; Admin Dose 650 MG; Start 03/17/18 at 14:00 Hydralazine HCl (Apresoline) 25 mg Q6H PRN PO ELEVATED SYSTOLIC BP Last administered on 03/19/18at 18:13; Admin Dose 25 MG; Start 03/18/18 at 05:30 Heparin Sodium (Porcine) (Heparin (1000 Units/ml)) 2,300 unit AFTER DIALYSIS CATHETER Last administered on 04/07/18at 20:11; Admin Dose 2,300 UNIT; Start 03/18/18 at 22:00 Collagenase (Santyl) 1 applic PRN PRN TOP WHEN SOILED Last administered on 03/23/18at 21:45; Admin Dose 1 APPLIC; Start 03/19/18 at 19:30 Hydralazine HCl (Apresoline) 10 mg Q6H PRN IV elevated BP Last administered on 04/06/18 03:25; Admin Dose 10 MG; Start 03/19/18 at 19:30 Epoetin Clinton (Epogen (Esrd)) 10,000 units MoWeFr@17 SC Last administered on 04/07/18 17:16; Admin Dose 10,000 UNITS; Start 03/22/18 at 17:00 Multivit/Ca Carb/ B Cmplx/FA/Prenat (Alena-Martin) 1 tab DAILY PO Last admi nistered on 04/09/18 09:02; Admin Dose 1 TAB; Start 03/24/18 at 09:00 Quetiapine Fumarate (Seroquel) 300 mg QHS PO Last administered on 04/08/18 20:26; Admin Dose 300 MG; Start 03/27/18 at 21:00 Citalopram Hydrobromide (Celexa) 20 mg DAILY PO Last administered on 04/09/18 08:57; Admin Dose 20 MG; Start 03/27/18 at 10:30 Diagnostic Test (Pha) (Accu-Chek) 1 ea 02 XX ; Start 03/30/18 at 02:00 Cholecalciferol (Vitamin D) 2,000 unit DAILY PO Last administered on 04/09/18 08:57; Admin Dose 2,000 UNIT; Start 03/30/18 at 09:30 Insulin Aspart (Novolog Insulin Pen) (Adult SC Insulin - Moder... WITH MEALS BEDTIME SC ; Start 03/30/18 at 12:00 Ceftriaxone Sodium 50 ml @ 100 mls/hr Q24H IVPB Last administered on 04/09/18 09:15; Admin Dose 100 MLS/HR; Start 04/01/18 at 09:30 Morphine Sulfate (morphine) 10 mg Q4H PRN PO SEVERE PAIN LEVEL 7-10 Last administered on 04/09/18 06:40; Admin Dose 10 MG; Start 04/03/18 at 13:30 Diphenhydramine HCl (Benadryl) 50 mg Q6H PRN IV itching Last administered on 04/09/18 09:02; Admin Dose 50 MG; Start 04/04/18 at 06:00 Buspirone HCl (Buspar) 10 mg BID PO Last administered on 04/09/18 08:57; Admin Dose 10 MG; Start 04/08/18 at 09:00 ROBERT GOODRICH Apr 09, 2018 10:18
--- NOTE | 2018-04-09 10:30 | NUR ---
PT NOTES: [facility] Patient: Abiodun Isidro : 1965 Age/Sex: 52/F Unit#: [id number] Room/Bed: 5539/A User: Bryant Stevenson PTA Date: 04/09/18 10:23 Type: PT Technical Record Therapy day number 5 Subjective Current complaint of pain Pain Scale NUMERIC Pain Intensity 0 (0-10) Patient Stated Goal for Pain Relief 0 (0-10) Pain Level Comment NON NOTED Exercise Assessment Label Bilat Lower Extremity Exercise Type Active ROM Exercise Start Time 10:00 Exercise End Time 10:23 Total Exercise Time 23 min (8-127) Safety Judgement Poor Activity Tolerance Poor Post Treatment Pain Intensity 6 0-10 Total Treament Time 23 min (8-127) Total Minutes 23 Total Units 2 PT Technical Record Comment PT NOTES: PATIENT SEEN FOR THERAEX TO BOTH UPPER AND LOWER EXT IN SUPINE ONLY; DECLINED EDGE OF BED ACTIVITIES DUE TO FATIGUE; WILL FOLLOW UP NEXT TREATMENT SCHEDULE.
--- NOTE | 2018-04-09 15:00 | PN ---
Date/Time of Note Date/Time of Note DATE: 04/09/18 TIME: 15:00 Assessment/Plan VTE Prophylaxis Risk score (from Ns)>0 risk: 4 SCD applied (from Ns): Yes SCD contraindicated: other Pharmacological prophylaxis: other Pharm contraindication: other Lines/Catheters IV [facility] Type ([facility] [place] Peripheral IV Urinary Cath still in place: No Assessment/Plan Assessment/Plan -Abdominal pain status post ERCP with sphincterectomy, removal of stone and stenting by Dr. Webb. -Chronic liver disease, likely cirrhotic. -Anasarca and ascites, s/p paracentesis on 03/15, 03/19, 03/26, 03/30. -Hemodialysis dependent end-stage renal disease. Continue hemodialysis per nephrology. Dr. Bledsoe is following in nephrology consultation -Hypertension, continue Procardia and hydralazine as needed. -Diabetes, NovoLog per mild algorithm sliding scale -Seizure disorder, continue Keppra -Gastritis, continue PPI -Anemia of chronic disease, continue Epogen -Depressive disorder with psychosis. Continue Seroquel. Further recommendations based on clinical course. Plan of care discussed with Dr. Smith. Result Diagram: 04/07/18 1833 04/07/18 1833 Results 24hrs Laboratory Tests Test 04/08/18 17:36 04/08/18 20:33 04/09/18 08:22 04/09/18 12:41 Bedside Glucose 88 81 97 87 Subjective 24 Hr Interval Summary Free Text/Dictation HD now Exam/Review of Systems Vital Signs Vitals Vital Signs Date Temp Pulse Resp B/P (MAP) Pulse Ox O2 O2 Flow FiO2 Time Delivery Rate 04/09/18 97.8 69 18 153/72 97 Room Air 08:00 (99) Intake and Output 04/08/18 04/08/18 04/09/18 1515:00 23:00 07:00 IntakeIntake Total 840 ml 270 ml BalanceBalance 840 ml 270 ml Medications Medications Current Medications Ondansetron HCl (Zofran Inj) 4 mg Q6H PRN IV NAUSEA AND/OR VOMITING Last administered on 04/03/18at 13:37; Admin Dose 4 MG; Start 03/16/18 at 18:30 Clonidine (Catapres) 0.1 mg Q6H PRN PO ELEVATED BLOOD PRESSURE Last administered on 03/18/18at 02:50; Admin Dose 0.1 MG; Start 03/16/18 at 20:30 Calcitriol (Rocaltrol) 0.25 mcg DAILY PO Last administered on 04/09/18 08:57; Admin Dose 0.25 MCG; Start 03/17/18 at 09:00 Levetiracetam (Keppra) 500 mg BID PO Last administered on 04/09/18 08:57; Admin Dose 500 MG; Start 03/16/18 at 21:00 Nifedipine (Procardia Xl) 30 mg DAILY PO Last administered on 04/08/18 08:34; Admin Dose 30 MG; Start 03/17/18 at 09:00 Pantoprazole (Protonix Tab) 40 mg AC BREAKFAST PO Last administered on 04/09/18 06:19; Admin Dose 40 MG; Start 03/17/18 at 07:00 Quetiapine Fumarate (Seroquel) 300 mg DAILY PO Last administered on 04/09/18 08:57; Admin Dose 300 MG; Start 03/17/18 at 09:00 Sevelamer Carbonate (Renvela) 1.6 gm WITH MEALS PO Last administered on 04/09/18 12:42; Admin Dose 1.6 GM; Start 03/17/18 at 08:00 Miscellaneous Information 1 ea NOTE XX ; Start 03/16/18 at 21:30 Glucose (Glutose) 15 gm Q15M PRN PO DECREASED GLUCOSE; Start 03/16/18 at 21:30 Glucose (Glutose) 22.5 gm Q15M PRN PO DECREASED GLUCOSE; Start 03/16/18 at 21:30 Dextrose (D50w Syringe) 25 ml Q15M PRN IV DECREASED GLUCOSE; Start 03/16/18 at 21:30 Dextrose (D50w Syringe) 50 ml Q15M PRN IV DECREASED GLUCOSE; Start 03/16/18 at 21:30 Glucagon (Glucagen) 1 mg Q15M PRN IM DECREASED GLUCOSE; Start 03/16/18 at 21:30 Glucose (Glutose) 15 gm Q15M PRN BUCCAL DECREASED GLUCOSE; Start 03/16/18 at 21:30 Labetalol HCl (Normodyne) 200 mg BID PO Last administered on 04/08/18 20:38; Admin Dose 200 MG; Start 03/16/18 at 22:00 Loperamide HCl (Imodium Cap) 2 mg Q6H PRN PO diarrhea Last administered on 03/20/18 01:12; Admin Dose 2 MG; Start 03/17/18 at 03:30 Acetaminophen (Tylenol Tab) 650 mg Q6H PRN PO MILD PAIN(1-3)OR ELEVATED TEMP Last administered on 03/19/18 07:55; Admin Dose 650 MG; Start 03/17/18 at 14:00 Hydralazine HCl (Apresoline) 25 mg Q6H PRN PO ELEVATED SYSTOLIC BP Last administered on 03/19/18 18:13; Admin Dose 25 MG; Start 03/18/18 at 05:30 Heparin Sodium (Porcine) (Heparin (1000 Units/ml)) 2,300 unit AFTER DIALYSIS CATHETER Last administered on 04/07/18 20:11; Admin Dose 2,300 UNIT; Start 03/18/18 at 22:00 Collagenase (Santyl) 1 applic PRN PRN TOP WHEN SOILED Last administered on 03/23/18 21:45; Admin Dose 1 APPLIC; Start 03/19/18 at 19:30 Hydralazine HCl (Apresoline) 10 mg Q6H PRN IV elevated BP Last administered on 04/06/18 03:25; Admin Dose 10 MG; Start 03/19/18 at 19:30 Epoetin [place] (Epogen (Esrd)) 10,000 units MoWeFr@17 SC Last administered on 04/07/18 17:16; Admin Dose 10,000 UNITS; Start 03/22/18 at 17:00 Multivit/Ca Carb/ B Cmplx/FA/Prenat (Alena-Martin) 1 tab DAILY PO Last administered on 04/09/18 09:02; Admin Dose 1 TAB; Start 03/24/18 at 09:00 Quetiapine Fumarate (Seroquel) 300 mg QHS PO Last administered on 04/08/18 20:26; Admin Dose 300 MG; Start 03/27/18 at 21:00 Citalopram Hydrobromide (Celexa) 20 mg DAILY PO Last administered on 04/09/18 08:57; Admin Dose 20 MG; Start 03/27/18 at 10:30 Diagnostic Test (Pha) (Accu-Chek) 1 02 XX ; Start 03/30/18 at 02:00 Cholecalciferol (Vitamin D) 2,000 unit DAILY PO Last administered on 04/09/18at 08:57; Admin Dose 2,000 UNIT; Start 03/30/18 at 09:30 Insulin Aspart (Novolog Insulin Pen) (Adult SC Insulin - Moder... WITH MEALS BEDTIME SC ; Start 03/30/18 at 12:00 Ceftriaxone Sodium 50 ml @ 100 mls/hr Q24H IVPB Last administered on 04/09/18at 09:15; Admin Dose 100 MLS/HR; Start 04/01/18 at 09:30 Morphine Sulfate (morphine) 10 mg Q4H PRN PO SEVERE PAIN LEVEL 7-10 Last administered on 04/09/18at 06:40; Admin Dose 10 MG; Start 04/03/18 at 13:30 Diphenhydramine HCl (Benadryl) 50 mg Q6H PRN IV itching Last administered on 04/09/18at 09:02; Admin Dose 50 MG; Start 04/04/18 at 06:00 Buspirone HCl (Buspar) 10 mg BID PO Last administered on 04/09/18at 08:57; Admin Dose 10 MG; Start 04/08/18 at 09:00 CECILE LIVE Apr 09, 2018 15:00
--- NOTE | 2018-04-09 16:27 | NUR ---
End of shift report No significant change in condition noted throughout the shift. Pt currently going through dialysis without change in condition. Benadryl IVP given once on my shift and effective. Will continue to monitor. Addendum: 04/09/18 at 1629 by SHRUTHI ROSS RN Reinforced teaching of importance of turning Q2hrs. Pt verbalized understanding.
[2018-04-09] MEDS: HEPARIN 1000 UNITS/ML 10 ML INJ CATHETER SCH (18:23)
[2018-04-09] MEDS: EPOETIN 10000 UNITS/1 ML INJ (ESRD) SC SCH (18:55)
[2018-04-10] MEDS: ACCU-CHEK XX SCH (02:00)
[2018-04-10 02:02] VITALS: BP 135/76; PULSE 85; RESP 20
[2018-04-10 06:00] VITALS: BP 127/76; PULSE 84; RESP 20
--- NOTE | 2018-04-10 06:00 | NUR ---
EOSS: Pt. kept comfortable overnight. Pt. had dialysis overnight. Due meds given. No acute changes. Pt. was complaining that IV is painful. IV was swollen. New IV was inserted by Arlen. Pt. medicated for pain as requested. Wound care completed. Will endorse care to oncoming nurse
[2018-04-10] MEDS: PANTOPRAZOLE (EC) 40 MG TAB PO SCH (06:07)
[2018-04-10] MEDS: DIPHENHYDRAMINE 50 MG INJ IV PRN ×2 (06:07→20:10)
[2018-04-10] MEDS: morphine LIQ (10 MG/5 ML) CUP PO PRN ×2 (06:08→11:01)
[2018-04-10 07:46] VITALS: BP 138/96; PULSE 79; RESP 16
--- NOTE | 2018-04-10 07:51 | PN ---
Date/Time of Note Date/Time of Note DATE: 04/10/18 TIME: 07:50 Assessment/Plan VTE Prophylaxis Risk score (from Nsg)>0 risk: 4 SCD applied (from Nsg): Yes Pharmacological prophylaxis: other Lines/Catheters IV Catheter Type (from Nrsg): permacath Urinary Cath still in place: No Assessment/Plan Hospital Course renal follow up SUBJECTIVE: The patient is stable, no events overnight. last HD was yesterday d/w Dr Bledsoe OBJECTIVE: HEENT: Head is normocephalic. NECK: Supple. HEART: Regular rate. LUNGS: Show diminished breath sounds at the base. ABDOMEN: Soft, nontender to palpation. No rebound or guarding. EXTREMITIES: Negative for clubbing, cyanosis, no edema. DERMATOLOGIC: No rashes. MUSCULOSKELETAL: No joint effusions. NEUROLOGIC: No change in exam. MEDICATIONS: Reviewed. LABORATORY DATA: Reviewed. ASSESSMENT AND PLAN: 1. End-stage renal disease. Plan is for hemodialysis in 1-2 days 2. Mineral bone disorder, monitor calcium and phosphorus levels. Continue vitamin D analogs and phosphate binders. 3. Anemia. Continue to monitor hemoglobin and hematocrit levels. Continue Epogen as needed. Iron panel will be checked. 4. Volume overload, improving. Continue ultrafiltration dialysis. 5. Liver disease, cirrhosis with spontaneous bacterial peritonitis. The patient is completing antibiotic course. Continue to monitor. Follow up with GI. 6. Hypertension. Continue current blood pressure regimen. 7. Gastritis. Continue proton pump inhibitor. 8. Depressive disorder with psychosis. Continue Seroquel. Result Diagram: 04/07/18 1833 04/07/18 1833 Results 24hrs Laboratory Tests Test 04/09/18 08:22 04/09/18 12:41 04/09/18 17:19 04/09/18 20:12 Bedside Glucose 97 87 98 127 Exam/Review of Systems Vital Signs Vitals Vital Signs Date Temp Pulse Resp B/P (MAP) Pulse Ox O2 O2 Flow FiO2 Time Delivery Rate 04/10/18 97.6 79 16 138/96 100 07:46 (110) 04/10/18 Room Air 06:00 Intake and Output 04/09/18 04/09/18 04/10/18 1515:00 23:00 07:00 IntakeIntake Total 170 ml 240 ml OutputOutput Total 2600 ml BalanceBalance 170 ml -2360 ml Medications Medications Current Medications Ondansetron HCl (Zofran Inj) 4 mg Q6H PRN IV NAUSEA AND/OR VOMITING Last administered on 04/03/18 13:37; Admin Dose 4 MG; Start 03/16/18 at 18:30 Clonidine (Catapres) 0.1 mg Q6H PRN PO ELEVATED BLOOD PRESSURE Last administered on 03/18/18at 02:50; Admin Dose 0.1 MG; Start 03/16/18 at 20:30 Calcitriol (Rocaltrol) 0.25 mcg DAILY PO Last administered on 04/09/18 08:57; Admin Dose 0.25 MCG; Start 03/17/18 at 09:00 Levetiracetam (Keppra) 500 mg BID PO Last administered on 04/09/18 20:14; Admin Dose 500 MG; Start 03/16/18 at 21:00 Nifedipine (Procardia Xl) 30 mg DAILY PO Last administered on 04/08/18 08:34; Admin Dose 30 MG; Start 03/17/18 at 09:00 Pantoprazole (Protonix Tab) 40 mg AC BREAKFAST PO Last administered on 06:07; Admin Dose 40 MG; Start 03/17/18 at 07:00 Quetiapine Fumarate (Seroquel) 300 mg DAILY PO Last administered on 04/09/18 08:57; Admin Dose 300 MG; Start 03/17/18 at 09:00 Sevelamer Carbonate (Renvela) 1.6 gm WITH MEALS PO Last administered on 04/09/18 18:54; Admin Dose 1.6 GM; Start 03/17/18 at 08:00 Miscellaneous Information 1 ea NOTE XX ; Start 03/16/18 at 21:30 Glucose (Glutose) 15 gm Q15M PRN PO DECREASED GLUCOSE; Start 03/16/18 at 21:30 Glucose (Glutose) 22.5 gm Q15M PRN PO DECREASED GLUCOSE; Start 03/16/18 at 21:30 Dextrose (D50w Syringe) 25 ml Q15M PRN IV DECREASED GLUCOSE; Start 03/16/18 at 21:30 Dextrose (D50w Syringe) 50 ml Q15M PRN IV DECREASED GLUCOSE; Start 03/16/18 at 21:30 Glucagon (Glucagen) 1 mg Q15M PRN IM DECREASED GLUCOSE; Start 03/16/18 at 21:30 Glucose (Glutose) 15 gm Q15M PRN BUCCAL DECREASED GLUCOSE; Start 03/16/18 at 21:30 Labetalol HCl (Normodyne) 200 mg BID PO Last administered on 04/08/18 20:38; Admin Dose 200 MG; Start 03/16/18 at 22:00 Loperamide HCl (Imodium Cap) 2 mg Q6H PRN PO diarrhea Last administered on 03/20/18at 01:12; Admin Dose 2 MG; Start 03/17/18 at 03:30 Acetaminophen (Tylenol Tab) 650 mg Q6H PRN PO MILD PAIN(1-3)OR ELEVATED TEMP Last administered on 03/19/18 07:55; Admin Dose 650 MG; Start 03/17/18 at 14:00 Hydralazine HCl (Apresoline) 25 mg Q6H PRN PO ELEVATED SYSTOLIC BP Last administered on 03/19/18at 18:13; Admin Dose 25 MG; Start 03/18/18 at 05:30 Heparin Sodium (Porcine) (Heparin (1000 Units/ml)) 2,300 unit AFTER DIALYSIS CATHETER Last administered on 04/09/18 18:23; Admin Dose 4,500 UNIT; Start 03/18/18 at 22:00 Collagenase (Santyl) 1 applic PRN PRN TOP WHEN SOILED Last administered on 03/23/18 21:45; Admin Dose 1 APPLIC; Start 03/19/18 at 19:30 Hydralazine HCl (Apresoline) 10 mg Q6H PRN IV elevated BP Last administered on 04/06/18 03:25; Admin Dose 10 MG; Start 03/19/18 at 19:30 Epoetin Clinton (Epogen (Esrd)) 10,000 units MoWeFr@17 SC Last administered on 04/09/18 18:55; Admin Dose 10,000 UNITS; Start 03/22/18 at 17:00 Multivit/Ca Carb/ B Cmplx/FA/Prenat (Alena-Martin) 1 tab DAILY PO Last administered on 04/09/18 09:02; Admin Dose 1 TAB; Start 03/24/18 at 09:00 Quetiapine Fumarate (Seroquel) 300 mg QHS PO Last administered on 04/09/18 20:13; Admin Dose 300 MG; Start 03/27/18 at 21:00 Citalopram Hydrobromide (Celexa) 20 mg DAILY PO Last administered on 04/09/18 08:57; Admin Dose 20 MG; Start 03/27/18 at 10:30 Diagnostic Test (Pha) (Accu-Chek) 1 ea 02 XX ; Start 03/30/18 at 02:00 Cholecalciferol (Vitamin D) 2,000 unit DAILY PO Last administered on 04/09/18 08:57; Admin Dose 2,000 UNIT; Start 03/30/18 at 09:30 Insulin Aspart (Novolog Insulin Pen) (Adult SC Insulin - Moder... WITH MEALS BEDTIME SC ; Start 03/30/18 at 12:00 Ceftriaxone Sodium 50 ml @ 100 mls/hr Q24H IVPB Last administered on 04/09/18 09:15; Admin Dose 100 MLS/HR; Start 04/01/18 at 09:30 Morphine Sulfate (morphine) 10 mg Q4H PRN PO SEVERE PAIN LEVEL 7-10 Last administered on 04/10/18 06:08; Admin Dose 10 MG; Start 04/03/18 at 13:30 Diphenhydramine HCl (Benadryl) 50 mg Q6H PRN IV itching Last administered on 04/10/18 06:07; Admin Dose 50 MG; Start 04/04/18 at 06:00 Buspirone HCl (Buspar) 10 mg BID PO Last administered on 04/09/18 20:13; Admin Dose 10 MG; Start 04/08/18 at 09:00 ERIC MOLINA DO Apr 10, 2018 07:51
[2018-04-10] MEDS: Insulin NOVOLOG SS MODERATE Algorithm (SS with meals and bedtime) SC SCH ×4 (08:00→20:17)
--- NOTE | 2018-04-10 08:05 | CONS ---
Date/Time of Note Date/Time of Note DATE: 04/10/18 TIME: 08:05 Assessment/Plan Assessment/Plan Assessment/Plan Hospital Course 52 yo female with ESRD and diarrhea left AMA 03/16 and returned with abdominal pain. 1. Abdominal pain -secondary to ascites -Ascites fluid: WBC 1886 -improved 2. Diarrhea -O/P negative. C diff negative -improved 3. Mildly elevated lipase with mid abd pain radiating to back -resolved 4. Mild generalized small and large bowel wall thickening which per CT 03/01 could represent third spacing. 5. Hemorrhoids per pt 6. Mild hepatomegaly 7. Anemia, likely due to chronic disease -Ferritin high, Iron wnl, TIBC low, B12 wnl, folate wnl, FOB negative -no evidence of GI bleeding 8. End stage renal disease on HD 9. Cardiomegaly with mild lower lung pulmonary edema with small left effusion and mild diffuse ascites 10. Anasarca and ascites -s/p pracentesisi 03/15, 03/19, 03/26, 03/30 11. Diabetes 12. Hypertension 13. Elevated alk phos secondary to chronic liver disease 14. Mildly dilated biliary system with CBD measuring 10mm -s/p ercp 15. Chronic liver disease 16. Spontaneous bacterial peritonitis -started on cefotaxime 2 gm IV q 8 hours -cultures negative. CT scan of abd from 03/01 IMPRESSION: There is cardiomegaly with mild lower lung pulmonary edema along with a small left effusion with mild diffuse ascites and anasarca and this likely represent third spacing of fluid. Mild generalized small and large bowel wall thickening could represent edema related to third spacing. There is a fecal filled colon without obstruction or grossly visible appendicitis. Atherosclerotic disease is present. No renal or ureteral calculi with no evidence of hydronephrosis. Rounded hypodensity in the left upper pole kidney could represent a hemorrhagic cyst and can be correlated with MRI.. Mild hepatomegaly. Plan: paracentesis prn Recommend Cefotaxime 2 gm IV q 8 hours, hospital does not carry, Rocephin started, Rocephin x 10 days, started on 03/30 Continue with diet as tolerated Continue with PPI PRN pain management WBC count and culture of peritoneal fluid with next paracentesis Stool for occult blood and ferritin level Result Diagram: 04/07/18 1833 04/07/18 1833 Results 24hrs Laboratory Tests Test 04/09/18 08:22 04/09/18 12:41 04/09/18 17:19 04/09/18 20:12 Bedside Glucose 97 87 98 127 Consultation Date/Type/Reason Admit Date/Time Mar 16, 2018 at 14:01 Initial Consult Date 24 HR Interval Summary Constitutional: improved Exam/Review of Systems Vital Signs Vitals Vital Signs Date Temp Pulse Resp B/P (MAP) Pulse Ox O2 O2 Flow FiO2 Time Delivery Rate 04/10/18 97.6 79 16 138/96 100 07:46 (110) 04/10/18 Room Air 06:00 Intake and Output 04/09/18 04/09/18 04/10/18 1515:00 23:00 07:00 IntakeIntake Total 170 ml 240 ml OutputOutput Total 2600 ml BalanceBalance 170 ml -2360 ml Exam Constitutional: alert, oriented, well developed Psych: no complaints, nl mood/affect Head: normocephalic, atraumatic Eyes: nl conjunctiva, EOMI, nl lids, nl sclera, PERRL ENMT: nl external ears & nose, nl lips & teeth, nl nasal mucosa & septum Neck: supple, non-tender Respiratory: clear to auscultation, normal air movement Cardiovascular: regular rate and rhythm, nl pulses Gastrointestinal: soft, nl liver, spleen, non-tender Musculoskeletal: nl extremities to inspection, nl gait and stance Extremities: normal pulses 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, nl mental status, nl speech, nl strength Skin: nl turgor; No rash or lesions Lymph: nl lymph nodes Medications Medications Current Medications Ondansetron HCl (Zofran Inj) 4 mg Q6H PRN IV NAUSEA AND/OR VOMITING Last administered on 04/03/18at 13:37; Admin Dose 4 MG; Start 03/16/18 at 18:30 Clonidine (Catapres) 0.1 mg Q6H PRN PO ELEVATED BLOOD PRESSURE Last administered on 03/18/18at 02:50; Admin Dose 0.1 MG; Start 03/16/18 at 20:30 Calcitriol (Rocaltrol) 0.25 mcg DAILY PO Last administered on 04/09/18at 08:57; Admin Dose 0.25 MCG; Start 03/17/18 at 09:00 Levetiracetam (Keppra) 500 mg BID PO Last administered on 04/09/18 20:14; Admin Dose 500 MG; Start 03/16/18 at 21:00 Nifedipine (Procardia Xl) 30 mg DAILY PO Last administered on 04/08/18 08:34; Admin Dose 30 MG; Start 03/17/18 at 09:00 Pantoprazole (Protonix Tab) 40 mg AC BREAKFAST PO Last administered on 04/10/18 06:07; Admin Dose 40 MG; Start 03/17/18 at 07:00 Quetiapine Fumarate (Seroquel) 300 mg DAILY PO Last administered on 04/09/18 08:57; Admin Dose 300 MG; Start 03/17/18 at 09:00 Sevelamer Carbonate (Renvela) 1.6 gm WITH MEALS PO Last administered on 04/09/18 18:54; Admin Dose 1.6 GM; Start 03/17/18 at 08:00 Miscellaneous Information 1 ea NOTE XX ; Start 03/16/18 at 21:30 Glucose (Glutose) 15 gm Q15M PRN PO DECREASED GLUCOSE; Start 03/16/18 at 21:30 Glucose (Glutose) 22.5 gm Q15M PRN PO DECREASED GLUCOSE; Start 03/16/18 at 21:30 Dextrose (D50w Syringe) 25 ml Q15M PRN IV DECREASED GLUCOSE; Start 03/16/18 at 21:30 Dextrose (D50w Syringe) 50 ml Q15M PRN IV DECREASED GLUCOSE; Start 03/16/18 at 21:30 Glucagon (Glucagen) 1 mg Q15M PRN IM DECREASED GLUCOSE; Start 03/16/18 at 21:30 Glucose (Glutose) 15 gm Q15M PRN BUCCAL DECREASED GLUCOSE; Start 03/16/18 at 21:30 Labetalol HCl (Normodyne) 200 mg BID PO Last administered on 04/08/18 20:38; Admin Dose 200 MG; Start 03/16/18 at 22:00 Loperamide HCl (Imodium Cap) 2 mg Q6H PRN PO diarrhea Last administered on 03/20/18at 01:12; Admin Dose 2 MG; Start 03/17/18 at 03:30 Acetaminophen (Tylenol Tab) 650 mg Q6H PRN PO MILD PAIN(1-3)OR ELEVATED TEMP Last administered on 03/19/18at 07:55; Admin Dose 650 MG; Start 03/17/18 at 14:00 Hydralazine HCl (Apresoline) 25 mg Q6H PRN PO ELEVATED SYSTOLIC BP Last administered on 03/19/18 18:13; Admin Dose 25 MG; Start 03/18/18 at 05:30 Heparin Sodium (Porcine) (Heparin (1000 Units/ml)) 2,300 unit AFTER DIALYSIS CATHETER Last administered on 04/09/18 18:23; Admin Dose 4,500 UNIT; Start 03/18/18 at 22:00 Collagenase (Santyl) 1 applic PRN PRN TOP WHEN SOILED Last administered on 21:45; Admin Dose 1 APPLIC; Start 03/19/18 at 19:30 Hydralazine HCl (Apresoline) 10 mg Q6H PRN IV elevated BP Last administered on 04/06/18 03:25; Admin Dose 10 MG; Start 03/19/18 at 19:30 Epoetin [place] (Epogen (Esrd)) 10,000 units MoWeFr@17 SC Last administered on 04/09/18at 18:55; Admin Dose 10,000 UNITS; Start 03/22/18 at 17:00 Multivit/Ca Carb/ B Cmplx/FA/Prenat (Alena-Martin) 1 tab DAILY PO Last administered on 04/09/18 09:02; Admin Dose 1 TAB; Start 03/24/18 at 09:00 Quetiapine Fumarate (Seroquel) 300 mg QHS PO Last administered on 04/09/18 20:13; Admin Dose 300 MG; Start 03/27/18 at 21:00 Citalopram Hydrobromide (Celexa) 20 mg DAILY PO Last administered on 04/09/18 08:57; Admin Dose 20 MG; Start 03/27/18 at 10:30 Diagnostic Test (Pha) (Accu-Chek) 1 ea 02 XX ; Start 03/30/18 at 02:00 Cholecalciferol (Vitamin D) 2,000 unit DAILY PO Last administered on 04/09/18 08:57; Admin Dose 2,000 UNIT; Start 03/30/18 at 09:30 Insulin Aspart (Novolog Insulin Pen) (Adult SC Insulin - Moder... WITH MEALS BEDTIME SC ; Start 03/30/18 at 12:00 Ceftriaxone Sodium 50 ml @ 100 mls/hr Q24H IVPB Last administered on 04/09/18 09:15; Admin Dose 100 MLS/HR; Start 04/01/18 at 09:30 Morphine Sulfate (morphine) 10 mg Q4H PRN PO SEVERE PAIN LEVEL 7-10 Last administered on 04/10/18 06:08; Admin Dose 10 MG; Start 04/03/18 at 13:30 Diphenhydramine HCl (Benadryl) 50 mg Q6H PRN IV itching Last administered on 04/10/18 06:07; Admin Dose 50 MG; Start 04/04/18 at 06:00 Buspirone HCl (Buspar) 10 mg BID PO Last administered on 04/09/18at 20:13; Admin Dose 10 MG; Start 04/08/18 at 09:00 LEODAN SONI MD Apr 10, 2018 08:05
[2018-04-10] MEDS: SEVELAMER CARBONATE 0.8 GM PKT PO SCH ×3 (08:12→17:03)
[2018-04-10] MEDS: CHOLECALCIFEROL 2,000 UNIT CAP PO SCH (08:14)
[2018-04-10] MEDS: QUETIAPINE 100 MG TAB PO SCH ×2 (08:14→20:09)
[2018-04-10] MEDS: MULTIVIT/CA CARB/B CMPLX/FA TAB PO SCH (08:14)
[2018-04-10] MEDS: NIFEdipine (XL) 30 MG TAB PO SCH (08:14)
[2018-04-10] MEDS: LABETALOL 200 MG TAB PO SCH ×2 (08:14→20:10)
[2018-04-10] MEDS: CITALOPRAM 20 MG TAB PO SCH (08:14)
[2018-04-10] MEDS: LEVETIRACETAM 500 MG TAB PO SCH ×2 (08:14→20:09)
[2018-04-10] MEDS: CALCITRIOL 0.25 MCG CAP PO SCH (08:14)
[2018-04-10] MEDS: BUSPIRONE 5 MG TAB PO SCH ×2 (08:17→20:09)
[2018-04-10] MEDS: CEFTRIAXONE 1 GM/NS 50 ML IVPB SCH (08:19)
--- NOTE | 2018-04-10 11:54 | PN ---
Date/Time of Note Date/Time of Note DATE: 04/10/18 TIME: 11:53 Assessment/Plan VTE Prophylaxis Risk score (from Nsg)>0 risk: 3 SCD applied (from Nsg): Yes Lines/Catheters IV Catheter Type (from Nrsg): permacath Urinary Cath still in place: No Assessment/Plan Assessment/Plan -Abdominal pain status post ERCP with sphincterectomy, removal of stone and stenting by Dr. Webb. -Chronic liver disease, likely cirrhotic. -Anasarca and ascites, s/p paracentesis on 03/15, 03/19, 03/26, 03/30. -Hemodialysis dependent end-stage renal disease. Continue hemodialysis per nephrology. Dr. Bledsoe is following in nephrology consultation -Hypertension, continue Procardia and hydralazine as needed. -Diabetes, NovoLog per mild algorithm sliding scale -Seizure disorder, continue Keppra -Gastritis, continue PPI -Anemia of chronic disease, continue Epogen -Depressive disorder with psychosis. Continue Seroquel. Further recommendations based on clinical course. Plan of care discussed with Dr. Smith Result Diagram: 04/07/18 1833 04/07/18 1833 Results 24hrs Laboratory Tests Test 04/09/18 12:41 04/09/18 17:19 04/09/18 20:12 04/10/18 08:09 Bedside Glucose 87 98 127 98 Subjective 24 Hr Interval Summary Free Text/Dictation rEFUSED LABS this morning Exam/Review of Systems Vital Signs Vitals Vital Signs Date Temp Pulse Resp B/P (MAP) Pulse Ox O2 O2 Flow FiO2 Time Delivery Rate 04/10/18 97.6 79 16 138/96 100 07:46 (110) 04/10/18 Room Air 06:00 Intake and Output 04/09/18 04/09/18 04/10/18 1515:00 23:00 07:00 IntakeIntake Total 170 ml 240 ml OutputOutput Total 2600 ml BalanceBalance 170 ml -2360 ml Medications Medications Current Medications Ondansetron HCl (Zofran Inj) 4 mg Q6H PRN IV NAUSEA AND/OR VOMITING Last administered on 04/03/18at 13:37; Admin Dose 4 MG; Start 03/16/18 at 18:30 Clonidine (Catapres) 0.1 mg Q6H PRN PO ELEVATED BLOOD PRESSURE Last administered on 03/18/18at 02:50; Admin Dose 0.1 MG; Start 03/16/18 at 20:30 Calcitriol (Rocaltrol) 0.25 mcg DAILY PO Last administered on 04/10/18 08:14; Admin Dose 0.25 MCG; Start 03/17/18 at 09:00 Levetiracetam (Keppra) 500 mg BID PO Last administered on 04/10/18 08:14; Adm in Dose 500 MG; Start 03/16/18 at 21:00 Nifedipine (Procardia Xl) 30 mg DAILY PO Last administered on 04/10/18 08:14; Admin Dose 30 MG; Start 03/17/18 at 09:00 Pantoprazole (Protonix Tab) 40 mg AC BREAKFAST PO Last administered on 04/10/18 06:07; Admin Dose 40 MG; Start 03/17/18 at 07:00 Quetiapine Fumarate (Seroquel) 300 mg DAILY PO Last administered on 04/10/18 08:14; Admin Dose 300 MG; Start 03/17/18 at 09:00 Sevelamer Carbonate (Renvela) 1.6 gm WITH MEALS PO Last administered on 04/10/18 08:12; Admin Dose 1.6 GM; Start 03/17/18 at 08:00 Miscellaneous Information 1 ea NOTE XX ; Start 03/16/18 at 21:30 Glucose (Glutose) 15 gm Q15M PRN PO DECREASED GLUCOSE; Start 03/16/18 at 21:30 Glucose (Glutose) 22.5 gm Q15M PRN PO DECREASED GLUCOSE; Start 03/16/18 at 21:30 Dextrose (D50w Syringe) 25 ml Q15M PRN IV DECREASED GLUCOSE; Start 03/16/18 at 21:30 Dextrose (D50w Syringe) 50 ml Q15M PRN IV DECREASED GLUCOSE; Start 03/16/18 at 21:30 Glucagon (Glucagen) 1 mg Q15M PRN IM DECREASED GLUCOSE; Start 03/16/18 at 21:30 Glucose (Glutose) 15 gm Q15M PRN BUCCAL DECREASED GLUCOSE; Start 03/16/18 at 21:30 Labetalol HCl (Normodyne) 200 mg BID PO Last administered on 04/10/18 08:14; Admin Dose 200 MG; Start 03/16/18 at 22:00 Loperamide HCl (Imodium Cap) 2 mg Q6H PRN PO diarrhea Last administered on 03/20/18 01:12; Admin Dose 2 MG; Start 03/17/18 at 03:30 Acetaminophen (Tylenol Tab) 650 mg Q6H PRN PO MILD PAIN(1-3)OR ELEVATED TEMP Last administered on 03/19/18 07:55; Admin Dose 650 MG; Start 03/17/18 at 14:00 Hydralazine HCl (Apresoline) 25 mg Q6H PRN PO ELEVATED SYSTOLIC BP Last administered on 03/19/18 18:13; Admin Dose 25 MG; Start 03/18/18 at 05:30 Heparin Sodium (Porcine) (Heparin (1000 Units/ml)) 2,300 unit AFTER DIALYSIS CATHETER Last administered on 04/09/18 18:23; Admin Dose 4,500 UNIT; Start 03/18/18 at 22:00 Collagenase (Santyl) 1 applic PRN PRN TOP WHEN SOILED Last administered on 03/23/18 21:45; Admin Dose 1 APPLIC; Start 03/19/18 at 19:30 Hydralazine HCl (Apresoline) 10 mg Q6H PRN IV elevated BP Last administered on 04/06/18 03:25; Admin Dose 10 MG; Start 03/19/18 at 19:30 Epoetin Clinton (Epogen (Esrd)) 10,000 units MoWeFr@17 SC Last administered on 04/09/18 18:55; Admin Dose 10,000 UNITS; Start 03/22/18 at 17:00 Multivit/Ca Carb/ B Cmplx/FA/Prenat (Alena-Martin) 1 tab DAILY PO Last administered on 04/10/18 08:14; Admin Dose 1 TAB; Start 03/24/18 at 09:00 Quetiapine Fumarate (Seroquel) 300 mg QHS PO Last administered on 04/09/18 20:13; Admin Dose 300 MG; Start 03/27/18 at 21:00 Citalopram Hydrobromide (Celexa) 20 mg DAILY PO Last administered on 04/10/18 08:14; Admin Dose 20 MG; Start 03/27/18 at 10:30 Diagnostic Test (Pha) (Accu-Chek) 1 ea 02 XX ; Start 03/30/18 at 02:00 Cholecalciferol (Vitamin D) 2,000 unit DAILY PO Last administered on 04/10/18at 08:14; Admin Dose 2,000 UNIT; Start 03/30/18 at 09:30 Insulin Aspart (Novolog Insulin Pen) (Adult SC Insulin - Moder... WITH MEALS BEDTIME SC ; Start 03/30/18 at 12:00 Ceftriaxone Sodium 50 ml @ 100 mls/hr Q24H IVPB Last administered on 04/10/18at 08:19; Admin Dose 100 MLS/HR; Start 04/01/18 at 09:30 Morphine Sulfate (morphine) 10 mg Q4H PRN PO SEVERE PAIN LEVEL 7-10 Last administered on 04/10/18at 06:08; Admin Dose 10 MG; Start 04/03/18 at 13:30 Diphenhydramine HCl (Benadryl) 50 mg Q6H PRN IV itching Last administered on 04/10/18at 06:07; Admin Dose 50 MG; Start 04/04/18 at 06:00 Buspirone HCl (Buspar) 10 mg BID PO Last administered on 04/10/18at 08:17; Admin Dose 10 MG; Start 04/08/18 at 09:00 CECILE LIVE Apr 10, 2018 11:54
--- NOTE | 2018-04-10 13:25 | NUR ---
PT Note Therapy day number 6 Subjective Current complaint of pain Pain Scale NUMERIC Pain Intensity 10 (0-10) Patient Stated Goal for Pain Relief 0 (0-10) Pain Level Comment pain in the sacrum and the joints Pre Treatment Vital Signs Stable Yes Exercise Assessment Label Bilat Lower Extremity Exercise Type Active ROM Additional Exercise Comments heel slides, marches Exercise Assessment Label Bilat Upper Extremity Exercise Type Active ROM Additional Exercise Comments shoulder/elbow/wrist flex/ext, shoulder abd Exercise Start Time 15:25 Exercise End Time 15:35 Total Exercise Time 10 min (8-127) Transfer Training Start Time 15:35 Supine to Sit Moderate Assist Bed Mobility Sit to Supine Stand by Assist Sitting Tolerance 3 min Additional Mobility Comments needed BUE support to sit, but could sit SBA Transfer Training End Time 15:50 Total Transfer Training Time 15 min (8-127) Static Sitting Balance Fair minus Dynamic Sitting Balance Fair minus Safety Judgement Fair Activity Tolerance Poor Equipment Present IV pump Post Treatment Pain Intensity 10 0-10 Total Treament Time 25 min (8-127) Total Minutes 25 Total Units 2 PT Technical Record Comment S: Pt found supine in bed, agreeable to PT. RN cleared pt for activity. O: Pt was seen for bed mobility, transfer to EOB, and bed exercises. Required modA for supine-sit with hand-hold and torso assist. Sitting tolerance 3 mins, then requested return to bed due to fatigue. Instructed pt on bed exercises, then rolling in bed to assist RN with cleaning sacral bandage. Pt assisted back to bed in sidelying position in care of RN, RN informed of pt response to activity. A: Pt continues to have poor tolerance for activity, sitting tolerance, and unable to get OOB due to fatigue. However pt was receptive to bed exercises and education on bed mobility to assist with sacral pain. P: Continue POC. Review bed exercises with pt next time.
--- NOTE | 2018-04-10 17:29 | NUR ---
END OF SHIFT SUMMARY Pt alert x1 noted with confusion. All due meds given as ordered. No acute distress noted. Pt refused accu-check at 1200. Wound care done as ordered. Turned and repositioned Q2hrs. Pt complained of pain; morphine PO offered, pt refused stated, "the doctor switched it to IV" ASPHALT PATCHER was notified of pt request for IV but order was denied due to pts confusion. Will continue to monitor pt and endorse plan of care accordingly.
[2018-04-10 19:59] VITALS: BP 127/64; PULSE 69; RESP 18
[2018-04-11] VITALS (17 sets, daily range): BP systolic 111–172; BP diastolic 75–90; PULSE 67–76; RESP 16–20
[2018-04-11] MEDS: ACCU-CHEK XX SCH (02:00)
[2018-04-11] MEDS: morphine LIQ (10 MG/5 ML) CUP PO PRN ×2 (04:14→09:34)
--- NOTE | 2018-04-11 06:00 | NUR ---
EOSS: Pt. rested on and off throughout shift. Pt. is alert X2. Pt. has episodes of confusion. Blood glucose monitored overnight, no insulin coverage needed. Pt. was complaining about her pain medicine because it is PO and not IV. Explained to the pt. that the DrMendy does not want to give her IV pain medication at this time. Pt. encouraged to make frequent position changes to offload the pressure on her sacrum. Pt. verbalized understanding. Will endorse care to oncoming nurse. Addendum: 04/11/18 at 0633 by JAMEEL HARRIS RN ADVERTISING CLERK offered pt. Hebiclens bath. Pt. refused. Re educated pt. on purpose and benefit of hebiclens.
[2018-04-11] MEDS: PANTOPRAZOLE (EC) 40 MG TAB PO SCH (06:17)
[2018-04-11] MEDS: Insulin NOVOLOG SS MODERATE Algorithm (SS with meals and bedtime) SC SCH ×4 (08:00→21:00)
[2018-04-11] MEDS: SEVELAMER CARBONATE 0.8 GM PKT PO SCH ×3 (08:28→17:45)
[2018-04-11] MEDS: BUSPIRONE 5 MG TAB PO SCH ×2 (08:28→21:32)
[2018-04-11] MEDS: MULTIVIT/CA CARB/B CMPLX/FA TAB PO SCH (08:29)
[2018-04-11] MEDS: CALCITRIOL 0.25 MCG CAP PO SCH (08:29)
[2018-04-11] MEDS: QUETIAPINE 100 MG TAB PO SCH ×2 (08:29→21:33)
[2018-04-11] MEDS: CHOLECALCIFEROL 2,000 UNIT CAP PO SCH (08:30)
[2018-04-11] MEDS: NIFEdipine (XL) 30 MG TAB PO SCH (08:30)
[2018-04-11] MEDS: LEVETIRACETAM 500 MG TAB PO SCH ×2 (08:30→21:33)
[2018-04-11] MEDS: CITALOPRAM 20 MG TAB PO SCH (08:31)
[2018-04-11] MEDS: LABETALOL 200 MG TAB PO SCH ×2 (08:31→21:33)
--- NOTE | 2018-04-11 09:16 | PN ---
Date/Time of Note Date/Time of Note DATE: 04/11/18 TIME: 09:14 Assessment/Plan VTE Prophylaxis Risk score (from Nsg)>0 risk: 4 SCD applied (from Nsg): Yes Pharmacological prophylaxis: other Lines/Catheters IV Catheter Type (from Nrsg): permacath Urinary Cath still in place: No Assessment/Plan Hospital Course renal follow up SUBJECTIVE: The patient is stable, no events overnight. last HD was 2 days ago d/w Dr Bledsoe OBJECTIVE: HEENT: Head is normocephalic. NECK: Supple. HEART: Regular rate. LUNGS: Show diminished breath sounds at the base. ABDOMEN: Soft, nontender to palpation. No rebound or guarding. EXTREMITIES: Negative for clubbing, cyanosis, no edema. DERMATOLOGIC: No rashes. MUSCULOSKELETAL: No joint effusions. NEUROLOGIC: No change in exam. MEDICATIONS: Reviewed. LABORATORY DATA: Reviewed. ASSESSMENT AND PLAN: 1. End-stage renal disease. continue hd today 2. Mineral bone disorder, monitor calcium and phosphorus levels. Continue vitamin D analogs and phosphate binders. 3. Anemia. Continue to monitor hemoglobin and hematocrit levels. Continue Epogen as needed. Iron panel will be checked. 4. Volume overload, improving. Continue ultrafiltration dialysis. 5. Liver disease, cirrhosis with spontaneous bacterial peritonitis. The patient is completing antibiotic course. Continue to monitor. Follow up with GI. 6. Hypertension. Continue current blood pressure regimen. 7. Gastritis. Continue proton pump inhibitor. 8. Depressive disorder with psychosis. Continue Seroquel. Result Diagram: 04/07/18 1833 04/07/18 1833 Results 24hrs Laboratory Tests Test 04/10/18 17:05 04/10/18 20:08 04/11/18 08:24 Bedside Glucose 77 87 76 Exam/Review of Systems Vital Signs Vitals Vital Signs Date Temp Pulse Resp B/P (MAP) Pulse Ox O2 O2 Flow FiO2 Time Delivery Rate 04/11/18 98.2 72 172/90 100 Room Air 07:59 (117) 04/11/18 18 02:26 Intake and Output 04/10/18 04/10/18 04/11/18 1515:00 23:00 07:00 IntakeIntake Total 1250 ml BalanceBalance 1250 ml Medications Medications Current Medications Ondansetron HCl (Zofran Inj) 4 mg Q6H PRN IV NAUSEA AND/OR VOMITING Last administered on 04/03/18 13:37; Admin Dose 4 MG; Start 03/16/18 at 18:30 Clonidine (Catapres) 0.1 mg Q6H PRN PO ELEVATED BLOOD PRESSURE Last administered on 03/18/18 02:50; Admin Dose 0.1 MG; Start 03/16/18 at 20:30 Calcitriol (Rocaltrol) 0.25 mcg DAILY PO Last administered on 04/11/18 08:29; Admin Dose 0.25 MCG; Start 03/17/18 at 09:00 Levetiracetam (Keppra) 500 mg BID PO Last administered on 04/11/18 08:30; Admin Dose 500 MG; Start 03/16/18 at 21:00 Nifedipine (Procardia Xl) 30 mg DAILY PO Last administered on 04/11/18 08:30; Admin Dose 30 MG; Start 03/17/18 at 09:00 Pantoprazole (Protonix Tab) 40 mg AC BREAKFAST PO Last administered on 04/11/18 06:17; Admin Dose 40 MG; Start 03/17/18 at 07:00 Quetiapine Fumarate (Seroquel) 300 mg DAILY PO Last administered on 04/11/18 08:29; Admin Dose 300 MG; Start 03/17/18 at 09:00 Sevelamer Carbonate (Renvela) 1.6 gm WITH MEALS PO Last administered on 04/11/18 08:28; Admin Dose 1.6 GM; Start 03/17/18 at 08:00 Miscellaneous Information 1 ea NOTE XX ; Start 03/16/18 at 21:30 Glucose (Glutose) 15 gm Q15M PRN PO DECREASED GLUCOSE; Start 03/16/18 at 21:30 Glucose (Glutose) 22.5 gm Q15M PRN PO DECREASED GLUCOSE; Start 03/16/18 at 21:30 Dextrose (D50w Syringe) 25 ml Q15M PRN IV DECREASED GLUCOSE; Start 03/16/18 at 21:30 Dextrose (D50w Syringe) 50 ml Q15M PRN IV DECREASED GLUCOSE; Start 03/16/18 at 21:30 Glucagon (Glucagen) 1 mg Q15M PRN IM DECREASED GLUCOSE; Start 03/16/18 at 21:30 Glucose (Glutose) 15 gm Q15M PRN BUCCAL DECREASED GLUCOSE; Start 03/16/18 at 21:30 Labetalol HCl (Normodyne) 200 mg BID PO Last administered on 04/11/18 08:31; Admin Dose 200 MG; Start 03/16/18 at 22:00 Loperamide HCl (Imodium Cap) 2 mg Q6H PRN PO diarrhea Last administered on 03/20/18 01:12; Admin Dose 2 MG; Start 03/17/18 at 03:30 Acetaminophen (Tylenol Tab) 650 mg Q6H PRN PO MILD PAIN(1-3)OR ELEVATED TEMP Last administered on 03/19/18 07:55; Admin Dose 650 MG; Start 03/17/18 at 14:00 Hydralazine HCl (Apresoline) 25 mg Q6H PRN PO ELEVATED SYSTOLIC BP Last administered on 03/19/18 18:13; Admin Dose 25 MG; Start 03/18/18 at 05:30 Heparin Sodium (Porcine) (Heparin (1000 Units/ml)) 2,300 unit AFTER DIALYSIS CATHETER Last administered on 04/09/18 18:23; Admin Dose 4,500 UNIT; Start 03/18/18 at 22:00 Collagenase (Santyl) 1 applic PRN PRN TOP WHEN SOILED Last administered on 03/23/18 21:45; Admin Dose 1 APPLIC; Start 03/19/18 at 19:30 Hydralazine HCl (Apresoline) 10 mg Q6H PRN IV elevated BP Last administered on 04/06/18 03:25; Admin Dose 10 MG; Start 03/19/18 at 19:30 Epoetin [place] (Epogen (Esrd)) 10,000 units MoWeFr@17 SC Last administered on 04/09/18 18:55; Admin Dose 10,000 UNITS; Start 03/22/18 at 17:00 Multivit/Ca Carb/ B Cmplx/FA/Prenat (Alena-Martin) 1 tab DAILY PO Last administered on 04/11/18 08:29; Admin Dose 1 TAB; Start 03/24/18 at 09:00 Quetiapine Fumarate (Seroquel) 300 mg QHS PO Last administered on 04/10/18 20:09; Admin Dose 300 MG; Start 03/27/18 at 21:00 Citalopram Hydrobromide (Celexa) 20 mg DAILY PO Last administered on 04/11/18 08:31; Admin Dose 20 MG; Start 03/27/18 at 10:30 Diagnostic Test (Pha) (Accu-Chek) 1 ea 02 XX ; Start 03/30/18 at 02:00 Cholecalciferol (Vitamin D) 2,000 unit DAILY PO Last administered on 04/11/18at 08:30; Admin Dose 2,000 UNIT; Start 03/30/18 at 09:30 Insulin Aspart (Novolog Insulin Pen) (Adult SC Insulin - Moder... WITH MEALS BEDTIME SC ; Start 03/30/18 at 12:00 Ceftriaxone Sodium 50 ml @ 100 mls/hr Q24H IVPB Last administered on 04/10/18at 08:19; Admin Dose 100 MLS/HR; Start 04/01/18 at 09:30 Morphine Sulfate (morphine) 10 mg Q4H PRN PO SEVERE PAIN LEVEL 7-10 Last administered on 04/11/18at 04:14; Admin Dose 10 MG; Start 04/03/18 at 13:30 Diphenhydramine HCl (Benadryl) 50 mg Q6H PRN IV itching Last administered on 04/10/18at 20:10; Admin Dose 50 MG; Start 04/04/18 at 06:00 Buspirone HCl (Buspar) 10 mg BID PO Last administered on 04/11/18at 08:28; Admin Dose 10 MG; Start 04/08/18 at 09:00 ERIC MOLINA DO Apr 11, 2018 09:16
--- NOTE | 2018-04-11 09:30 | NUR ---
Called [facility] for dialysis order. Talked to Roxy and left a message. Got call back at 1000 by Nina with ETA for HD today after 1600. Confirmation #[id number].
[2018-04-11] MEDS: DIPHENHYDRAMINE 50 MG INJ IV PRN ×3 (09:34→21:51)
[2018-04-11] MEDS: CEFTRIAXONE 1 GM/NS 50 ML IVPB SCH (09:42)
--- NOTE | 2018-04-11 12:08 | CONS ---
Date/Time of Note Date/Time of Note DATE: 04/11/18 TIME: 12:05 Assessment/Plan Assessment/Plan Hospital Course 52 yo female with ESRD and diarrhea left AMA 03/16 and returned with abdominal pain. 1. Abdominal pain -secondary to ascites -Ascites fluid: WBC 1886 -improved 2. Diarrhea -O/P negative. C diff negative -improved 3. Mildly elevated lipase with mid abd pain radiating to back -resolved 4. Mild generalized small and large bowel wall thickening which per CT 03/01 could represent third spacing. 5. Hemorrhoids per pt 6. Mild hepatomegaly 7. Anemia, likely due to chronic disease -Ferritin high: trending up 354 03/21 and 818 (04/11), Iron wnl, TIBC low, B12 wnl, folate wnl, FOB negative 03/28, Retic 04/11 1.7 -no evidence of GI bleeding 8. End stage renal disease on HD 9. Cardiomegaly with mild lower lung pulmonary edema with small left effusion and mild diffuse ascites 10. Anasarca and ascites -s/p pracentesisi 03/15, 03/19, 03/26, 03/30 11. Diabetes 12. Hypertension 13. Elevated alk phos secondary to chronic liver disease 14. Mildly dilated biliary system with CBD measuring 10mm -s/p ercp 15. Chronic liver disease 16. Spontaneous bacterial peritonitis -started on cefotaxime 2 gm IV q 8 hours -cultures negative. CT scan of abd from 03/01 IMPRESSION: There is cardiomegaly with mild lower lung pulmonary edema along with a small left effusion with mild diffuse ascites and anasarca and this likely represent third spacing of fluid. Mild generalized small and large bowel wall thickening could represent edema related to third spacing. There is a fecal filled colon without obstruction or grossly visible appendicitis. Atherosclerotic disease is present. No renal or ureteral calculi with no evidence of hydronephrosis. Rounded hypodensity in the left upper pole kidney could represent a hemorrhagic cyst and can be correlated with MRI.. Mild hepatomegaly. Plan: Amitiza 24 mch BID, FOB pending paracentesis prn Recommend Cefotaxime 2 gm IV q 8 hours, hospital does not carry, Rocephin started, Rocephin x 10 days, started on 03/30 Continue with diet as tolerated Continue with PPI PRN pain management WBC count and culture of peritoneal fluid with next paracentesis Pt examined and plan of care discussed with Dr. Webb Result Diagram: 04/07/18 1833 04/07/18 1833 Results 24hrs Laboratory Tests Test 04/10/18 17:05 04/10/18 20:08 04/11/18 08:24 04/11/18 09:20 Bedside Glucose 77 87 76 Absolute 0.071 Reticulocyte Count Percent Reticulocyte 1.7 H Count Test 04/11/18 11:58 Bedside Glucose 100 Consultation Date/Type/Reason Admit Date/Time Mar 16, 2018 at 14:01 Initial Consult Date 24 HR Interval Summary Free Text/Dictation last bm on 04/09, intermittent abd pain, no n/v. Exam/Review of Systems Vital Signs Vitals Vital Signs Date Temp Pulse Resp B/P (MAP) Pulse Ox O2 O2 Flow FiO2 Time Delivery Rate 04/11/18 98.2 72 172/90 100 Room Air 07:59 (117) 04/11/18 18 02:26 Intake and Output 04/10/18 04/10/18 04/11/18 1414:59 22:59 06:59 IntakeIntake Total 1250 ml BalanceBalance 1250 ml Exam Constitutional: alert, oriented Head: normocephalic Eyes: PERRL Gastrointestinal: soft, distended, tender Neurological: nl mental status Medications Medications Current Medications Ondansetron HCl (Zofran Inj) 4 mg Q6H PRN IV NAUSEA AND/OR VOMITING Last administered on 04/03/18 13:37; Admin Dose 4 MG; Start 03/16/18 at 18:30 Clonidine (Catapres) 0.1 mg Q6H PRN PO ELEVATED BLOOD PRESSURE Last administered on 03/18/18at 02:50; Admin Dose 0.1 MG; Start 03/16/18 at 20:30 Calcitriol (Rocaltrol) 0.25 mcg DAILY PO Last administered on 04/11/18at 08:29; Admin Dose 0.25 MCG; Start 03/17/18 at 09:00 Levetiracetam (Keppra) 500 mg BID PO Last administered on 04/11/18 08:30; Admin Dose 500 MG; Start 03/16/18 at 21:00 Nifedipine (Procardia Xl) 30 mg DAILY PO Last administered on 04/11/18 08:30; Admin Dose 30 MG; Start 03/17/18 at 09:00 Pantoprazole (Protonix Tab) 40 mg AC BREAKFAST PO Last administered on 04/11/18 06:17; Admin Dose 40 MG; Start 03/17/18 at 07:00 Quetiapine Fumarate (Seroquel) 300 mg DAILY PO Last administered on 04/11/18 08:29; Admin Dose 300 MG; Start 03/17/18 at 09:00 Sevelamer Carbonate (Renvela) 1.6 gm WITH MEALS PO Last administered on 04/11/18 08:28; Admin Dose 1.6 GM; Start 03/17/18 at 08:00 Miscellaneous Information 1 ea NOTE XX ; Start 03/16/18 at 21:30 Glucose (Glutose) 15 gm Q15M PRN PO DECREASED GLUCOSE; Start 03/16/18 at 21:30 Glucose (Glutose) 22.5 gm Q15M PRN PO DECREASED GLUCOSE; Start 03/16/18 at 21:30 Dextrose (D50w Syringe) 25 ml Q15M PRN IV DECREASED GLUCOSE; Start 03/16/18 at 21:30 Dextrose (D50w Syringe) 50 ml Q15M PRN IV DECREASED GLUCOSE; Start 03/16/18 at 21:30 Glucagon (Glucagen) 1 mg Q15M PRN IM DECREASED GLUCOSE; Start 03/16/18 at 21:30 Glucose (Glutose) 15 gm Q15M PRN BUCCAL DECREASED GLUCOSE; Start 03/16/18 at 21:30 Labetalol HCl (Normodyne) 200 mg BID PO Last administered on 04/11/18 08:31; Admin Dose 200 MG; Start 03/16/18 at 22:00 Loperamide HCl (Imodium Cap) 2 mg Q6H PRN PO diarrhea Last administered on 03/20/18at 01:12; Admin Dose 2 MG; Start 03/17/18 at 03:30 Acetaminophen (Tylenol Tab) 650 mg Q6H PRN PO MILD PAIN(1-3)OR ELEVATED TEMP Last administered on 03/19/18at 07:55; Admin Dose 650 MG; Start 03/17/18 at 14 :00 Hydralazine HCl (Apresoline) 25 mg Q6H PRN PO ELEVATED SYSTOLIC BP Last administered on 03/19/18at 18:13; Admin Dose 25 MG; Start 03/18/18 at 05:30 Heparin Sodium (Porcine) (Heparin (1000 Units/ml)) 2,300 unit AFTER DIALYSIS CATHETER Last administered on 04/09/18 18:23; Admin Dose 4,500 UNIT; Start 03/18/18 at 22:00 Collagenase (Santyl) 1 applic PRN PRN TOP WHEN SOILED Last administered on 03/23/18 21:45; Admin Dose 1 APPLIC; Start 03/19/18 at 19:30 Hydralazine HCl (Apresoline) 10 mg Q6H PRN IV elevated BP Last administered on 04/06/18 03:25; Admin Dose 10 MG; Start 03/19/18 at 19:30 Epoetin [place] (Epogen (Esrd)) 10,000 units MoWeFr@17 SC Last administered on 04/09/18 18:55; Admin Dose 10,000 UNITS; Start 03/22/18 at 17:00 Multivit/Ca Carb/ B Cmplx/FA/Prenat (Alena-Martin) 1 tab DAILY PO Last administered on 04/11/18 08:29; Admin Dose 1 TAB; Start 03/24/18 at 09:00 Quetiapine Fumarate (Seroquel) 300 mg QHS PO Last administered on 04/10/18 20:09; Admin Dose 300 MG; Start 03/27/18 at 21:00 Citalopram Hydrobromide (Celexa) 20 mg DAILY PO Last administered on 04/11/18 08:31; Admin Dose 20 MG; Start 03/27/18 at 10:30 Diagnostic Test (Pha) (Accu-Chek) 1 ea 02 XX ; Start 03/30/18 at 02:00 Cholecalciferol (Vitamin D) 2,000 unit DAILY PO Last administered on 04/11/18 08:30; Admin Dose 2,000 UNIT; Start 03/30/18 at 09:30 Insulin Aspart (Novolog Insulin Pen) (Adult SC Insulin - Moder... WITH MEALS BEDTIME SC ; Start 03/30/18 at 12:00 Ceftriaxone Sodium 50 ml @ 100 mls/hr Q24H IVPB Last administered on 04/11/18 09:42; Admin Dose 100 MLS/HR; Start 04/01/18 at 09:30 Morphine Sulfate (morphine) 10 mg Q4H PRN PO SEVERE PAIN LEVEL 7-10 Last administered on 04/11/18 09:34; Admin Dose 10 MG; Start 04/03/18 at 13:30 Diphenhydramine HCl (Benadryl) 50 mg Q6H PRN IV itching Last administered on 04/11/18 09:34; Admin Dose 50 MG; Start 04/04/18 at 06:00 Buspirone HCl (Buspar) 10 mg BID PO Last administered on 04/11/18at 08:28; Admin Dose 10 MG; Start 04/08/18 at 09:00 ROBERT GOODRICH Apr 11, 2018 12:08
--- NOTE | 2018-04-11 14:14 | PN ---
Date/Time of Note Date/Time of Note DATE: 04/11/18 TIME: 14:14 Assessment/Plan VTE Prophylaxis Risk score (from Nsg)>0 risk: 5 SCD applied (from Nsg): Yes Lines/Catheters IV Catheter Type (from Nrsg): Permacath Urinary Cath still in place: No Assessment/Plan Assessment/Plan Anemia secondary to GI bleed. Dr. Webb is following in GI consultation. Transfuse as needed, monitor hemoglobin and hematocrit. -Bleeding gastric ulcers, s/p hemostasis with placement of hemoclip during EGD by Dr Culver on 03/25/18. Continue Protonix. -S/p septic shock secondary to urinary tract infection, continue antibiotics per ID. Dr. Goel is following in infection disease consultation. -Hypoxemic respiratory failure, resolving. Dr. Bentley is following in pulmonology consultation. -Acute kidney injury, resolved. Dr. Segundo following in nephrology consultation. -Hypernatremia, resolved. -MRSA of nares, continue Bactroban -Dementia -Multiple pressure ulcers, optimize nutrition, continue vitamin C and zinc sulfate, off loading. -Protein calorie malnutrition Further recommendations based on clinical course. Plan of care discussed with Dr. Smith. Result Diagram: 04/07/18 1833 04/07/18 1833 Results 24hrs Laboratory Tests Test 04/10/18 17:05 04/10/18 20:08 04/11/18 08:24 04/11/18 09:20 Bedside Glucose 77 87 76 Absolute 0.071 Reticulocyte Count Percent Reticulocyte 1.7 H Count Ferritin 817.0 H Vitamin B12 Level 684 Test 04/11/18 11:58 Bedside Glucose 100 Exam/Review of Systems Vital Signs Vitals Vital Signs Date Temp Pulse Resp B/P (MAP) Pulse Ox O2 O2 Flow FiO2 Time Delivery Rate 04/11/18 98.2 72 172/90 100 Room Air 07:59 (117) 04/11/18 18 02:26 Intake and Output 04/10/18 04/10/18 04/11/18 1515:00 23:00 07:00 IntakeIntake Total 1250 ml BalanceBalance 1250 ml Medications Medications Current Medications Ondansetron HCl (Zofran Inj) 4 mg Q6H PRN IV NAUSEA AND/OR VOMITING Last administered on 04/03/18at 13:37; Admin Dose 4 MG; Start 03/16/18 at 18:30 Clonidine (Catapres) 0.1 mg Q6H PRN PO ELEVATED BLOOD PRESSURE Last administere d on 03/18/18at 02:50; Admin Dose 0.1 MG; Start 03/16/18 at 20:30 Calcitriol (Rocaltrol) 0.25 mcg DAILY PO Last administered on 04/11/18 08:29; Admin Dose 0.25 MCG; Start 03/17/18 at 09:00 Levetiracetam (Keppra) 500 mg BID PO Last administered on 04/11/18 08:30; Admin Dose 500 MG; Start 03/16/18 at 21:00 Nifedipine (Procardia Xl) 30 mg DAILY PO Last administered on 04/11/18 08:30; Admin Dose 30 MG; Start 03/17/18 at 09:00 Pantoprazole (Protonix Tab) 40 mg AC BREAKFAST PO Last administered on 04/11/18 06:17; Admin Dose 40 MG; Start 03/17/18 at 07:00 Quetiapine Fumarate (Seroquel) 300 mg DAILY PO Last administered on 04/11/18 08:29; Admin Dose 300 MG; Start 03/17/18 at 09:00 Sevelamer Carbonate (Renvela) 1.6 gm WITH MEALS PO Last administered on 04/11/18 12:56; Admin Dose 1.6 GM; Start 03/17/18 at 08:00 Miscellaneous Information 1 ea NOTE XX ; Start 03/16/18 at 21:30 Glucose (Glutose) 15 gm Q15M PRN PO DECREASED GLUCOSE; Start 03/16/18 at 21:30 Glucose (Glutose) 22.5 gm Q15M PRN PO DECREASED GLUCOSE; Start 03/16/18 at 21:30 Dextrose (D50w Syringe) 25 ml Q15M PRN IV DECREASED GLUCOSE; Start 03/16/18 at 21:30 Dextrose (D50w Syringe) 50 ml Q15M PRN IV DECREASED GLUCOSE; Start 03/16/18 at 21:30 Glucagon (Glucagen) 1 mg Q15M PRN IM DECREASED GLUCOSE; Start 03/16/18 at 21:30 Glucose (Glutose) 15 gm Q15M PRN BUCCAL DECREASED GLUCOSE; Start 03/16/18 at 2 1:30 Labetalol HCl (Normodyne) 200 mg BID PO Last administered on 04/11/18 08:31; Admin Dose 200 MG; Start 03/16/18 at 22:00 Loperamide HCl (Imodium Cap) 2 mg Q6H PRN PO diarrhea Last administered on 03/20/18 01:12; Admin Dose 2 MG; Start 03/17/18 at 03:30 Acetaminophen (Tylenol Tab) 650 mg Q6H PRN PO MILD PAIN(1-3)OR ELEVATED TEMP Last administered on 03/19/18 07:55; Admin Dose 650 MG; Start 03/17/18 at 14:00 Hydralazine HCl (Apresoline) 25 mg Q6H PRN PO ELEVATED SYSTOLIC BP Last ad ministered on 03/19/18 18:13; Admin Dose 25 MG; Start 03/18/18 at 05:30 Heparin Sodium (Porcine) (Heparin (1000 Units/ml)) 2,300 unit AFTER DIALYSIS CATHETER Last administered on 04/09/18 18:23; Admin Dose 4,500 UNIT; Start 03/18/18 at 22:00 Collagenase (Santyl) 1 applic PRN PRN TOP WHEN SOILED Last administered on 03/23/18 21:45; Admin Dose 1 APPLIC; Start 03/19/18 at 19:30 Hydralazine HCl (Apresoline) 10 mg Q6H PRN IV elevated BP Last administered on 04/06/18 03:25; Admin Dose 10 MG; Start 03/19/18 at 19:30 Epoetin Clinton (Epogen (Esrd)) 10,000 units MoWeFr@17 SC Last administered on 04/09/18 18:55; Admin Dose 10,000 UNITS; Start 03/22/18 at 17:00 Multivit/Ca Carb/ B Cmplx/FA/Prenat (Alena-Martin) 1 tab DAILY PO Last administered on 04/11/18 08:29; Admin Dose 1 TAB; Start 03/24/18 at 09:00 Quetiapine Fumarate (Seroquel) 300 mg QHS PO Last administered on 04/10/18 20:09; Admin Dose 300 MG; Start 03/27/18 at 21:00 Citalopram Hydrobromide (Celexa) 20 mg DAILY PO Last administered on 04/11/18at 08:31; Admin Dose 20 MG; Start 03/27/18 at 10:30 Diagnostic Test (Pha) (Accu-Chek) 1 ea 02 XX ; Start 03/30/18 at 02:00 Cholecalciferol (Vitamin D) 2,000 unit DAILY PO Last administered on 04/11/18at 08:30; Admin Dose 2,000 UNIT; Start 03/30/18 at 09:30 Insulin Aspart (Novolog Insulin Pen) (Adult SC Insulin - Moder... WITH MEALS BEDTIME SC ; Start 03/30/18 at 12:00 Ceftriaxone Sodium 50 ml @ 100 mls/hr Q24H IVPB Last administered on 04/11/18at 09:42; Admin Dose 100 MLS/HR; Start 04/01/18 at 09:30 Morphine Sulfate (morphine) 10 mg Q4H PRN PO SEVERE PAIN LEVEL 7-10 Last admin istered on 04/11/18at 09:34; Admin Dose 10 MG; Start 04/03/18 at 13:30 Diphenhydramine HCl (Benadryl) 50 mg Q6H PRN IV itching Last administered on 04/11/18at 09:34; Admin Dose 50 MG; Start 04/04/18 at 06:00 Buspirone HCl (Buspar) 10 mg BID PO Last administered on 04/11/18at 08:28; Admin Dose 10 MG; Start 04/08/18 at 09:00 Lubiprostone (Amitiza) 24 mcg BID PO ; Start 04/11/18 at 21:00 CECILE LIVE Apr 11, 2018 14:14
--- NOTE | 2018-04-11 18:06 | NUR ---
EOSS Pt alert and oriented X2, intermittent confusion, able to verbalize needs. C/o pain in the beginning of shift, pain relief achieved after medication. Paracentesis ordered, Pt refused to go for paracentesis. Dialysis scheduled to be done after 4 pm. Wound dressing done, pictures taken. Encouraged to change position q2h. Will continue to monitor the pt.
--- NOTE | 2018-04-11 20:54 | NUR ---
patient is being dialyzed tonight.
[2018-04-11] MEDS: LUBIPROSTONE 24 MCG CAP PO SCH (21:36)
[2018-04-12] VITALS: BP 165/87; PULSE 77
[2018-04-12 00:15] VITALS: BP 163/86; PULSE 76
[2018-04-12] MEDS: ACCU-CHEK XX SCH (00:19)
[2018-04-12 00:30] VITALS: BP 148/83; PULSE 75
[2018-04-12] MEDS: HEPARIN 1000 UNITS/ML 10 ML INJ CATHETER SCH (00:47)
--- NOTE | 2018-04-12 02:56 | NUR ---
2000mls output via [employer].
[2018-04-12] MEDS: PANTOPRAZOLE (EC) 40 MG TAB PO SCH (05:47)
[2018-04-12 07:49] VITALS: BP 189/86; PULSE 85; RESP 16
[2018-04-12] MEDS: Insulin NOVOLOG SS MODERATE Algorithm (SS with meals and bedtime) SC SCH ×4 (08:00→20:58)
--- NOTE | 2018-04-12 08:03 | PN ---
DATE: 04/12/2018 SUBJECTIVE: The patient had hemodialysis yesterday, tolerated well. No other events noted. OBJECTIVE: VITAL SIGNS: Blood pressure is 142/85, respirations 20, pulse 71, temperature 98.0. HEENT: Head is normocephalic. NECK: Supple. HEART: Regular rate. LUNGS: Show diminished breath sounds at the base. ABDOMEN: Soft, nontender to palpation without rebound or guarding. EXTREMITIES: Negative for clubbing, cyanosis, no edema. DERMATOLOGIC: No rashes. MUSCULOSKELETAL: No joint effusion. NEUROLOGIC: No change in exam. MEDICATIONS: Reviewed. LABORATORY DATA: Reviewed. ASSESSMENT AND PLAN: 1. End-stage renal disease. The patient had hemodialysis yesterday, tolerated well. Plan is for di alysis again tomorrow. 2. Mineral bone disorder, monitor calcium and phosphorus levels. Continue vitamin D analogs and con tinue phosphate binders. 3. Anemia. Continue to monitor hemoglobin and hematocrit levels. Continue Epogen. The patient's i carlos saturations were recently checked. We will continue to monitor. 4. Volume overload, improving. Continue ultrafiltration dialysis. 5. Liver disease, cirrhosis with SBP. The patient is completing antibiotic course. Continue to mon itor and follow up with GI. 6. Hypertension. Continue current blood pressure regimen. 7. Gastritis. Continue proton pump inhibitor. 8. Depressive disorder, psychosis. Continue Seroquel. Dictated By: SHILO LIU DO NR/NTS Conf#: [id number] DID#: [id number] CC: RAYMUNDO DOUGLASS MD; JF KAISER MD;*EndCC*
--- NOTE | 2018-04-12 08:10 | CONS ---
Date/Time of Note Date/Time of Note DATE: 04/12/18 TIME: 08:10 Assessment/Plan Assessment/Plan Hospital Course 52 yo female with ESRD and diarrhea left AMA 03/16 and returned with abdominal pain. 1. Abdominal pain -secondary to ascites -Ascites fluid: WBC 1886 -improved 2. Diarrhea -O/P negative. C diff negative -improved 3. Mildly elevated lipase with mid abd pain radiating to back -resolved 4. Mild generalized small and large bowel wall thickening which per CT 03/01 could represent third spacing. 5. Hemorrhoids per pt 6. Mild hepatomegaly 7. Anemia, likely due to chronic disease -Ferritin high: trending up 354 03/21 and 818 (04/11), Iron wnl, TIBC low, B12 wnl, folate wnl, FOB negative 03/28, Retic 04/11 1.7 -no evidence of GI bleeding 8. End stage renal disease on HD 9. Cardiomegaly with mild lower lung pulmonary edema with small left effusion and mild diffuse ascites 10. Anasarca and ascites -s/p pracentesisi 03/15, 03/19, 03/26, 03/30 11. Diabetes 12. Hypertension 13. Elevated alk phos secondary to chronic liver disease 14. Mildly dilated biliary system with CBD measuring 10mm -s/p ercp 15. Chronic liver disease 16. Spontaneous bacterial peritonitis -started on cefotaxime 2 gm IV q 8 hours -cultures negative. CT scan of abd from 03/01 IMPRESSION: There is cardiomegaly with mild lower lung pulmonary edema along with a small left effusion with mild diffuse ascites and anasarca and this likely represent third spacing of fluid. Mild generalized small and large bowel wall thickening could represent edema related to third spacing. There is a fecal filled colon without obstruction or grossly visible appendicitis. Atherosclerotic disease is present. No renal or ureteral calculi with no evidence of hydronephrosis. Rounded hypodensity in the left upper pole kidney could represent a hemorrhagic cyst and can be correlated with MRI.. Mild hepatomegaly. Plan: CBC/CMP stat Dulcolax 10 mg x1 Continue with Amitiza 24 mcg BID, FOB pending paracentesis prn Continue with diet as tolerated Continue with PPI PRN pain management WBC count and culture of peritoneal fluid with next paracentesis Pt examined and plan of care discussed with Dr. Jogani Results 24hrs Laboratory Tests Test 04/11/18 08:24 04/11/18 09:20 04/11/18 11:58 04/11/18 17:44 Bedside Glucose 76 100 92 Absolute 0.071 Reticulocyte Count Percent Reticulocyte 1.7 H Count Ferritin 817.0 H Vitamin B12 Level 684 Test 04/11/18 21:31 04/12/18 08:07 Bedside Glucose 96 81 Consultation Date/Type/Reason Admit Date/Time Mar 16, 2018 at 14:01 Initial Consult Date 24 HR Interval Summary Free Text/Dictation Continues to c/o abd pain intermittently. Refused paracentesis yesterday. Had HD. No BM since 04/09. Eating well. Afebrile. Exam/Review of Systems Vital Signs Vitals Vital Signs Date Temp Pulse Resp B/P (MAP) Pulse Ox O2 O2 Flow FiO2 Time Delivery Rate 04/12/18 98.0 85 16 189/86 95 Room Air 07:49 (120) Intake and Output 04/11/18 04/11/18 04/12/18 1515:00 23:00 07:00 IntakeIntake Total 50 ml 150 ml OutputOutput Total 200 ml 4400 ml BalanceBalance 50 ml -200 ml -4250 ml Exam Constitutional: alert, oriented Psych: no complaints Head: normocephalic Eyes: PERRL Gastrointestinal: ascites, distended, tender Neurological: nl mental status Medications Medications Current Medications Ondansetron HCl (Zofran Inj) 4 mg Q6H PRN IV NAUSEA AND/OR VOMITING Last administered on 04/03/18at 13:37; Admin Dose 4 MG; Start 03/16/18 at 18:30 Clonidine (Catapres) 0.1 mg Q6H PRN PO ELEVATED BLOOD PRESSURE Last administered on 03/18/18at 02:50; Admin Dose 0.1 MG; Start 03/16/18 at 20:30 Calcitriol (Rocaltrol) 0.25 mcg DAILY PO Last administered on 04/11/18at 08:29; Admin Dose 0.25 MCG; Start 03/17/18 at 09:00 Levetiracetam (Keppra) 500 mg BID PO Last administered on 04/11/18at 21:33; Admin Dose 500 MG; Start 03/16/18 at 21:00 Nifedipine (Procardia Xl) 30 mg DAILY PO Last administered on 04/11/18 08:30; Admin Dose 30 MG; Start 03/17/18 at 09:00 Pantoprazole (Protonix Tab) 40 mg AC BREAKFAST PO Last administered on 04/12/18 05:47; Admin Dose 40 MG; Start 03/17/18 at 07:00 Quetiapine Fumarate (Seroquel) 300 mg DAILY PO Last administered on 04/11/18 08:29; Admin Dose 300 MG; Start 03/17/18 at 09:00 Sevelamer Carbonate (Renvela) 1.6 gm WITH MEALS PO Last administered on 04/11/18 17:45; Admin Dose 1.6 GM; Start 03/17/18 at 08:00 Miscellaneous Information 1 ea NOTE XX ; Start 03/16/18 at 21:30 Glucose (Glutose) 15 gm Q15M PRN PO DECREASED GLUCOSE; Start 03/16/18 at 21:30 Glucose (Glutose) 22.5 gm Q15M PRN PO DECREASED GLUCOSE; Start 03/16/18 at 21:30 Dextrose (D50w Syringe) 25 ml Q15M PRN IV DECREASED GLUCOSE; Start 03/16/18 at 21:30 Dextrose (D50w Syringe) 50 ml Q15M PRN IV DECREASED GLUCOSE; Start 03/16/18 at 21:30 Glucagon (Glucagen) 1 mg Q15M PRN IM DECREASED GLUCOSE; Start 03/16/18 at 21:30 Glucose (Glutose) 15 gm Q15M PRN BUCCAL DECREASED GLUCOSE; Start 03/16/18 at 21:30 Labetalol HCl (Normodyne) 200 mg BID PO Last administered on 04/11/18at 21:33; Admin Dose 200 MG; Start 03/16/18 at 22:00 Loperamide HCl (Imodium Cap) 2 mg Q6H PRN PO diarrhea Last administered on 03/20/18at 01:12; Admin Dose 2 MG; Start 03/17/18 at 03:30 Acetaminophen (Tylenol Tab) 650 mg Q6H PRN PO MILD PAIN(1-3)OR ELEVATED TEMP Last administered on 03/19/18at 07:55; Admin Dose 650 MG; Start 03/17/18 at 14:00 Hydralazine HCl (Apresoline) 25 mg Q6H PRN PO ELEVATED SYSTOLIC BP Last administered on 03/19/18at 18:13; Admin Dose 25 MG; Start 03/18/18 at 05:30 Heparin Sodium (Porcine) (Heparin (1000 Units/ml)) 2,300 unit AFTER DIALYSIS CATHETER Last administered on 04/12/18 00:47; Admin Dose 2,300 UNIT; Start 03/18/18 at 22:00 Collagenase (Santyl) 1 applic PRN PRN TOP WHEN SOILED Last administered on 03/23/18 21:45; Admin Dose 1 APPLIC; Start 03/19/18 at 19:30 Hydralazine HCl (Apresoline) 10 mg Q6H PRN IV elevated BP Last administered on 04/06/18 03:25; Admin Dose 10 MG; Start 03/19/18 at 19:30 Epoetin Clinton (Epogen (Esrd)) 10,000 units MoWeFr@17 SC Last administered on 04/09/18 18:55; Admin Dose 10,000 UNITS; Start 03/22/18 at 17:00 Multivit/Ca Carb/ B Cmplx/FA/Prenat (Alena-Martin) 1 tab DAILY PO Last administered on 04/11/18 08:29; Admin Dose 1 TAB; Start 03/24/18 at 09:00 Quetiapine Fumarate (Seroquel) 300 mg QHS PO Last administered on 04/11/18 21:33; Admin Dose 300 MG; Start 03/27/18 at 21:00 Citalopram Hydrobromide (Celexa) 20 mg DAILY PO Last administered on 04/11/18 08:31; Admin Dose 20 MG; Start 03/27/18 at 10:30 Diagnostic Test (Pha) (Accu-Chek) 1 ea 02 XX ; Start 03/30/18 at 02:00 Cholecalciferol (Vitamin D) 2,000 unit DAILY PO Last administered on 04/11/18 08:30; Admin Dose 2,000 UNIT; Start 03/30/18 at 09:30 Insulin Aspart (Novolog Insulin Pen) (Adult SC Insulin - Moder... WITH MEALS BEDTIME SC ; Start 03/30/18 at 12:00 Ceftriaxone Sodium 50 ml @ 100 mls/hr Q24H IVPB Last administered on 04/11/18 09:42; Admin Dose 100 MLS/HR; Start 04/01/18 at 09:30 Morphine Sulfate (morphine) 10 mg Q4H PRN PO SEVERE PAIN LEVEL 7-10 Last administered on 04/11/18at 09:34; Admin Dose 10 MG; Start 04/03/18 at 13:30 Diphenhydramine HCl (Benadryl) 50 mg Q6H PRN IV itching Last administered on 04/11/18at 21:51; Admin Dose 50 MG; Start 04/04/18 at 06:00 Buspirone HCl (Buspar) 10 mg BID PO Last administered on 04/11/18at 21:32; Admin Dose 10 MG; Start 04/08/18 at 09:00 Lubiprostone (Amitiza) 24 mcg BID PO Last administered on 04/11/18at 21:36; Admin Dose 24 MCG; Start 04/11/18 at 21:00 ROBERT GOODRICH Apr 12, 2018 08:10
[2018-04-12] MEDS: CALCITRIOL 0.25 MCG CAP PO SCH (08:44)
[2018-04-12] MEDS: NIFEdipine (XL) 30 MG TAB PO SCH (08:44)
[2018-04-12] MEDS: SEVELAMER CARBONATE 0.8 GM PKT PO SCH ×3 (08:44→17:38)
[2018-04-12] MEDS: CHOLECALCIFEROL 2,000 UNIT CAP PO SCH (08:44)
[2018-04-12] MEDS: LABETALOL 200 MG TAB PO SCH ×2 (08:44→20:54)
[2018-04-12] MEDS: LEVETIRACETAM 500 MG TAB PO SCH ×2 (08:44→20:54)
[2018-04-12] MEDS: CITALOPRAM 20 MG TAB PO SCH (08:45)
[2018-04-12] MEDS: hydrALAzine 20 MG INJ IV PRN (08:45)
[2018-04-12] MEDS: QUETIAPINE 100 MG TAB PO SCH ×2 (08:45→20:54)
[2018-04-12] MEDS: BUSPIRONE 5 MG TAB PO SCH ×2 (08:45→20:54)
[2018-04-12] MEDS: MULTIVIT/CA CARB/B CMPLX/FA TAB PO SCH (08:45)
[2018-04-12] MEDS: LUBIPROSTONE 24 MCG CAP PO SCH ×2 (08:45→20:53)
[2018-04-12] MEDS: morphine LIQ (10 MG/5 ML) CUP PO PRN ×2 (08:49→22:11)
[2018-04-12] MEDS: CEFTRIAXONE 1 GM/NS 50 ML IVPB SCH (09:09)
[2018-04-12] MEDS: DIPHENHYDRAMINE 50 MG INJ IV PRN ×2 (09:09→18:35)
[2018-04-12] MEDS: BISACODYL (EC) 5 MG TAB PO ONE ×2 (09:09→09:15)
[2018-04-12] MEDS ORDERED: EPOETIN 10000 UNITS/1 ML INJ (ESRD) SC SCH (11:30)
--- NOTE | 2018-04-12 11:32 | NUR ---
[facility] ORDERED FOR TOMORROW, CONFIRMATION #[id number]
--- NOTE | 2018-04-12 11:38 | NUR ---
ENDORSED CARE OF PT TO ONCOMING NURSE, AGUSTO LARIOS.
--- NOTE | 2018-04-12 13:20 | NUR ---
Pt cleared for activity per RN, patient reports decreased overall pain in hips and states has been ambulating to and from bathroom, refused PT intervention at this time despite encouragement due to "still in a lot of pain" unable to encourage to participate in therapy at this time
--- NOTE | 2018-04-12 13:44 | NUR ---
WOUND CARE FOLLOW UP CONSULT: This is a consult in reference to a possible stage 2 pressure injury to the left buttock area proximal to the sacrococcyx. Patient does reposition herself, has extensively dry, flaking epidermis. ASSESSMENT: At this time, suspect friction with combination of severely dry flaking skin with resulting superficial loss of epidermis layer exposing pale chapman structure. Surrounding skin is very dry and intact. The loss of epidermis layer area measures approx 0.5x0.4x0cm RECOMMENDATION: Apply Venelex ointment twice daily and cover with foam border dressing. Continue to observe this area at every shift prior to treatment for evidence of further skin breakdown -WCS will reassess the patient in about 2 days. Please notify wound care dept for any additional questions or encounters Patient seen and examined and plan of care discussed with Era LIZ. Rayne Flores, MSN, CCRN, WCC
--- NOTE | 2018-04-12 16:22 | PN ---
Date/Time of Note Date/Time of Note DATE: 04/12/18 TIME: 16:19 Assessment/Plan VTE Prophylaxis Risk score (from Ns)>0 risk: 3 SCD applied (from [facility] [place]): Yes Pharmacological prophylaxis: NA/contraindicated Pharm contraindication: liver dx Lines/Catheters IV [facility]ter [facility]from [facility] Saline Lock Urinary Cath still in place: No Assessment/Plan Hospital Course Patient with increased ascites refused paracentesis today, remains hemodynamically stable afebrile status post hemodialysis yesterday. It is homeless with hemodialysis dependent end-stage renal disease and chronic liver disease, unable to take care of herself, pending placement to [place] [facility]. Assessment/Plan -Abdominal pain status post ERCP with sphincterectomy, removal of stone and stenting by Dr. Webb. -Chronic liver disease, likely cirrhotic. -Anasarca and ascites, s/p paracentesis on 03/15, 03/19, 03/26, 03/30. -Hemodialysis dependent end-stage renal disease. Continue hemodialysis per nephrology. Dr. Bledsoe is following in nephrology consultation -Hypertension, continue Procardia and hydralazine as needed. -Diabetes, NovoLog per mild algorithm sliding scale -Seizure disorder, continue Keppra -Gastritis, continue PPI -Anemia of chronic disease, continue Epogen -Depressive disorder with psychosis. Continue Seroquel. Further recommendations based on clinical course. Plan of care discussed with Dr. Smith. Result Diagram: 04/12/18 1302 04/12/18 1302 Results 24hrs Laboratory Tests Test 04/11/18 17:44 04/11/18 21:31 04/12/18 08:07 04/12/18 13:02 Bedside Glucose 92 96 81 White Blood Count 8.5 Red Blood Count 3.76 L Hemoglobin 9.5 #L Hematocrit 30.5 #L Mean Corpuscular 81.1 L Volume Mean Corpuscular 25.3 L Hemoglobin Mean Corpuscular 31.1 L Hemoglobin Concent Red Cell 19.0 H Distribution Width Platelet Count 210 Mean Platelet Volume 9.0 Immature 0.200 Granulocytes % Neutrophils % 72.5 Lymphocytes % 11.7 L Monocytes % 7.6 Eosinophils % 7.3 H Basophils % 0.7 Nucleated Red Blood 0.0 Cells % Immature 0.020 Granulocytes # Neutrophils # 6.1 Lymphocytes # 1.0 Monocytes # 0.6 Eosinophils # 0.6 H Basophils # 0.1 Nucleated Red Blood 0.0 Cells # Sodium Level 136 Potassium Level 4.8 Chloride Level 99 Carbon Dioxide Level 30 Anion Gap 7 Blood Urea Nitrogen 17 Creatinine 2.79 H Est Glomerular 22 L Filtrat Rate mL/min Glucose Level 125 Calcium Level 9.1 Total Bilirubin 0.0 L Direct Bilirubin 0.00 Indirect Bilirubin 0.0 Aspartate Amino 18 Transf (AST/SGOT) Alanine 11 L Aminotransferase (AL T/SGPT) Alkaline Phosphatase 149 H Total Protein 6.2 Albumin 2.8 L Globulin 3.40 H Albumin/Globulin 0.82 Ratio Test 04/12/18 13:17 Bedside Glucose 121 Exam/Review of Systems Vital Signs Vitals Vital Signs Date Temp Pulse Resp B/P (MAP) Pulse Ox O2 O2 Flow FiO2 Time Delivery Rate 04/12/18 98.0 85 16 189/86 95 Room Air 07:49 (120) Intake and Output 04/11/18 04/11/18 04/12/18 1515:00 23:00 07:00 IntakeIntake Total 50 ml 150 ml OutputOutput Total 200 ml 4400 ml BalanceBalance 50 ml -200 ml -4250 ml Exam Constitutional: alert, oriented Respiratory: clear to auscultation Cardiovascular: rnl pulse Gastrointestinal: soft, distended Musculoskeletal: nl extremities to inspection Extremities: normal pulses Additional Comments Left chest tunneled hemodialysis catheter Medications Medications Current Medications Ondansetron HCl (Zofran Inj) 4 mg Q6H PRN IV NAUSEA AND/OR VOMITING Last administered on 04/03/18at 13:37; Admin Dose 4 MG; Start 03/16/18 at 18:30 Clonidine (Catapres) 0.1 mg Q6H PRN PO ELEVATED BLOOD PRESSURE Last administered on 03/18/18at 02:50; Admin Dose 0.1 MG; Start 03/16/18 at 20:30 Calcitriol (Rocaltrol) 0.25 mcg DAILY PO Last administered on 04/12/18at 08:44; Admin Dose 0.25 MCG; Start 03/17/18 at 09:00 Levetiracetam (Keppra) 500 mg BID PO Last administered on 04/12/18at 08:44; Admin Dose 500 MG; Start 03/16/18 at 21:00 Nifedipine (Procardia Xl) 30 mg DAILY PO Last administered on 04/12/18 08:44; Admin Dose 30 MG; Start 03/17/18 at 09:00 Pantoprazole (Protonix Tab) 40 mg AC BREAKFAST PO Last administered on 04/12/18 05:47; Admin Dose 40 MG; Start 03/17/18 at 07:00 Quetiapine Fumarate (Seroquel) 300 mg DAILY PO Last administered on 04/12/18 08:45; Admin Dose 300 MG; Start 03/17/18 at 09:00 Sevelamer Carbonate (Renvela) 1.6 gm WITH MEALS PO Last administered on 04/12/18 13:18; Admin Dose 1.6 GM; Start 03/17/18 at 08:00 Miscellaneous Information 1 ea NOTE XX ; Start 03/16/18 at 21:30 Glucose (Glutose) 15 gm Q15M PRN PO DECREASED GLUCOSE; Start 03/16/18 at 21:30 Glucose (Glutose) 22.5 gm Q15M PRN PO DECREASED GLUCOSE; Start 03/16/18 at 21:30 Dextrose (D50w Syringe) 25 ml Q15M PRN IV DECREASED GLUCOSE; Start 03/16/18 at 21:30 Dextrose (D50w Syringe) 50 ml Q15M PRN IV DECREASED GLUCOSE; Start 03/16/18 at 21:30 Glucagon (Glucagen) 1 mg Q15M PRN IM DECREASED GLUCOSE; Start 03/16/18 at 21:3 0 Glucose (Glutose) 15 gm Q15M PRN BUCCAL DECREASED GLUCOSE; Start 03/16/18 at 21:30 Labetalol HCl (Normodyne) 200 mg BID PO Last administered on 04/12/18 08:44; Admin Dose 200 MG; Start 03/16/18 at 22:00 Loperamide HCl (Imodium Cap) 2 mg Q6H PRN PO diarrhea Last administered on 03/20/18at 01:12; Admin Dose 2 MG; Start 03/17/18 at 03:30 Acetaminophen (Tylenol Tab) 650 mg Q6H PRN PO MILD PAIN(1-3)OR ELEVATED TEMP Last administered on 03/19/18at 07:55; Admin Dose 650 MG; Start 03/17/18 at 14:00 Hydralazine HCl (Apresoline) 25 mg Q6H PRN PO ELEVATED SYSTOLIC BP Last administered on 03/19/18at 18:13; Admin Dose 25 MG; Start 03/18/18 at 05:30 Heparin Sodium (Porcine) (Heparin (1000 Units/ml)) 2,300 unit AFTER DIALYSIS CATHETER Last administered on 04/12/18 00:47; Admin Dose 2,300 UNIT; Start 03/18/18 at 22:00 Collagenase (Santyl) 1 applic PRN PRN TOP WHEN SOILED Last administered on 03/23/18 21:45; Admin Dose 1 APPLIC; Start 03/19/18 at 19:30 Hydralazine HCl (Apresoline) 10 mg Q6H PRN IV elevated BP Last administered on 04/12/18 08:45; Admin Dose 10 MG; Start 03/19/18 at 19:30 Multivit/Ca Carb/ B Cmplx/FA/Prenat (Alena-Martin) 1 tab DAILY PO Last administered on 04/12/18 08:45; Admin Dose 1 TAB; Start 03/24/18 at 09:00 Quetiapine Fumarate (Seroquel) 300 mg QHS PO Last administered on 04/11/18 21:33; Admin Dose 300 MG; Start 03/27/18 at 21:00 Citalopram Hydrobromide (Celexa) 20 mg DAILY PO Last administered on 04/12/18 08:45; Admin Dose 20 MG; Start 03/27/18 at 10:30 Diagnostic Test (Pha) (Accu-Chek) 1 ea 02 XX ; Start 03/30/18 at 02:00 Cholecalciferol (Vitamin D) 2,000 unit DAILY PO Last administered on 04/12/18 08:44; Admin Dose 2,000 UNIT; Start 03/30/18 at 09:30 Insulin Aspart (Novolog Insulin Pen) (Adult SC Insulin - Moder... WITH MEALS BEDTIME SC ; Start 03/30/18 at 12:00 Ceftriaxone Sodium 50 ml @ 100 mls/hr Q24H IVPB Last administered on 04/12/18 09:09; Admin Dose 100 MLS/HR; Start 04/01/18 at 09:30 Morphine Sulfate (morphine) 10 mg Q4H PRN PO SEVERE PAIN LEVEL 7-10 Last administered on 04/12/18 08:49; Admin Dose 10 MG; Start 04/03/18 at 13:30 Diphenhydramine HCl (Benadryl) 50 mg Q6H PRN IV itching Last administered on 04/12/18at 09:09; Admin Dose 50 MG; Start 04/04/18 at 06:00 Buspirone HCl (Buspar) 10 mg BID PO Last administered on 04/12/18at 08:45; Admin Dose 10 MG; Start 04/08/18 at 09:00 Lubiprostone (Amitiza) 24 mcg BID PO Last administered on 04/12/18at 08:45; Admin Dose 24 MCG; Start 04/11/18 at 21:00 Epoetin Clinton (Epogen (Esrd)) 10,000 units AFTER DIALYSIS SC ; Start 04/12/18 at 11:30 BLAKE MORALES Apr 12, 2018 16:22
--- NOTE | 2018-04-12 19:08 | NUR ---
End of shift report Pt awake and interactive in the morning. In the afternoon pt took a long nap. When woke up from her nap pt stated "I've been calling my nurse!" Call light not pressed in the afternoon. Pt not oriented to time and situation when asked questions. Will continue to monitor.
[2018-04-12 20:12] VITALS: BP 140/60; PULSE 72; RESP 16
[2018-04-12] MEDS ORDERED: LORAZEPAM 2 MG INJ IV PRN (22:30)
[2018-04-13] VITALS (18 sets, daily range): BP systolic 73–153; BP diastolic 51–86; PULSE 16–76; RESP 16–17
[2018-04-13] MEDS: ACCU-CHEK XX SCH (02:00)
[2018-04-13] MEDS: PANTOPRAZOLE (EC) 40 MG TAB PO SCH (06:03)
--- NOTE | 2018-04-13 06:35 | NUR ---
END OF SHIFT REPORT Pt alert and oriented x4 with episodes of confusion. Pt on bed in low position with call light within reach. Bed alarm activated. Vitals stable. No acute distress noted. All due meds given. Pt slept most of the night. Pt provided with bed bath with hibiclens per [employer]. Pt to have dialysis done today. Will endorse pt to AM shift nurse for continuation of care.
[2018-04-13] MEDS: Insulin NOVOLOG SS MODERATE Algorithm (SS with meals and bedtime) SC SCH ×4 (08:00→20:09)
[2018-04-13] MEDS: LEVETIRACETAM 500 MG TAB PO SCH ×2 (08:06→20:09)
[2018-04-13] MEDS: CHOLECALCIFEROL 2,000 UNIT CAP PO SCH (08:06)
[2018-04-13] MEDS: MULTIVIT/CA CARB/B CMPLX/FA TAB PO SCH (08:06)
[2018-04-13] MEDS: SEVELAMER CARBONATE 0.8 GM PKT PO SCH ×3 (08:06→17:47)
[2018-04-13] MEDS: CALCITRIOL 0.25 MCG CAP PO SCH (08:07)
[2018-04-13] MEDS: CITALOPRAM 20 MG TAB PO SCH (08:07)
[2018-04-13] MEDS: LUBIPROSTONE 24 MCG CAP PO SCH ×2 (08:07→20:09)
[2018-04-13] MEDS: BUSPIRONE 5 MG TAB PO SCH ×2 (08:07→20:05)
[2018-04-13] MEDS: QUETIAPINE 100 MG TAB PO SCH ×2 (08:07→20:16)
[2018-04-13] MEDS: NIFEdipine (XL) 30 MG TAB PO SCH (08:07)
[2018-04-13] MEDS: LABETALOL 200 MG TAB PO SCH ×2 (08:07→20:09)
--- NOTE | 2018-04-13 08:38 | PN ---
DATE: 04/13/2018 SUBJECTIVE: The patient is stable, no events overnight. OBJECTIVE: VITAL SIGNS: Blood pressure is 142/72, respirations 16, pulse 70, temperature 97.9. HEENT: Head is normocephalic. NECK: Supple. HEART: Regular rate. LUNGS: Show diminished breath sounds at the base. ABDOMEN: Soft, nontender to palpation without rebound or guarding. EXTREMITIES: Negative for clubbing, cyanosis, no edema. DERMATOLOGIC: No rashes. MUSCULOSKELETAL: No joint effusion. NEUROLOGIC: No change in exam. MEDICATIONS: Reviewed. LABORATORY DATA: Reviewed. ASSESSMENT AND PLAN: 1. End-stage renal disease. Plan is for dialysis today. We will dialysis 3 hours 3k bath, calcium 2.5. 2. Mineral bone disorder, monitor calcium and phosphorus levels. Continue vitamin D analogs and nel sphate binders. 3. Anemia. Continue to monitor hemoglobin and hematocrit levels. Continue Epogen. 4. Volume overload, improving. Continue ultrafiltration dialysis. 5. Liver disease, cirrhosis with SBP. The patient is completing antibiotic course. Continue to mon itor. 6. Hypertension. Continue current blood pressure regimen. 7. Gastritis. Continue proton pump inhibitor. 8. Depressive disorder, psychosis. Continue Seroquel. Dictated By: SHILO LIU DO NR/NTS Conf#: [id number] DID#: [id number] CC: JF KAISER MD; RAYMUNDO DOUGLASS MD;*EndCC*
[2018-04-13] MEDS ORDERED: ALBUMIN HUMAN 25% 100 ML IV ONE (10:25)
--- NOTE | 2018-04-13 12:08 | NUR ---
PT NOTE Attempted to see pt for skilled PT this AM, unable due to pt undergoing dialysis, will f/u later as time permits. RN informed.
[2018-04-13] MEDS: DIPHENHYDRAMINE 50 MG INJ IV PRN ×2 (12:15→20:27)
[2018-04-13] MEDS: CEFTRIAXONE 1 GM/NS 50 ML IVPB SCH (12:24)
--- NOTE | 2018-04-13 14:15 | NUR ---
Pt went down to have paracentesis
--- NOTE | 2018-04-13 15:09 | NUR ---
GIULIANO NOTE: SNF Received call from Stefania at [facility] (P:[phone], F:[phone]) stating that they are accepting the pt pending authorization. Jose Berry RN CM [id number] Addendum: 04/13/18 at 1549 by LATOSHA BERRY CM Pt accepted to room 10B under Dr. Smith. Informed that pt will not be ready until tomorrow.
--- NOTE | 2018-04-13 15:18 | PN ---
Date/Time of Note Date/Time of Note DATE: 04/13/18 TIME: 15:14 Assessment/Plan VTE Prophylaxis Risk score (from [facility] [place])>0 risk: 3 SCD applied (from [facility] [place]): Yes Pharmacological prophylaxis: NA/contraindicated Pharm contraindication: liver dx Lines/Catheters IV Catheter Type (from [facility] Saline Lock Urinary Cath still in place: No Assessment/Plan Hospital Course Pt is s/p HD today, increased ascites, will order paracentesis, pt is agreeable to procedure now. Assessment/Plan -Abdominal pain status post ERCP with sphincterectomy, removal of stone and stenting by Dr. Webb. -Chronic liver disease, likely cirrhotic. -Anasarca and ascites, s/p paracentesis on 03/15, 03/19, 03/26, 03/30. -Hemodialysis dependent end-stage renal disease. Continue hemodialysis per nephrology. Dr. Bledsoe is following in nephrology consultation -Hypertension, continue Procardia and hydralazine as needed. -Diabetes, NovoLog per mild algorithm sliding scale -Seizure disorder, continue Keppra -Gastritis, continue PPI -Anemia of chronic disease, continue Epogen -Depressive disorder with psychosis. Continue Seroquel. Further recommendations based on clinical course. Plan of care discussed with Dr. Smith. Result Diagram: 04/13/18 0804 04/13/18 0804 Results 24hrs Laboratory Tests Test 04/12/18 17:38 04/12/18 20:56 04/13/18 08:03 04/13/18 08:04 Bedside Glucose 155 113 65 L White Blood Count 9.0 Red Blood Count 3.41 L Hemoglobin 8.5 L Hematocrit 27.4 L Mean Corpuscular 80.4 L Volume Mean Corpuscular 24.9 L Hemoglobin Mean Corpuscular 31.0 L Hemoglobin Concent Red Cell 19.0 H Distribution Width Platelet Count 259 # Mean Platelet Volume 9.4 Immature 0.200 Granulocytes % Neutrophils % 56.3 Lymphocytes % 19.7 Monocytes % 11.8 H Eosinophils % 11.0 H Basophils % 1.0 Nucleated Red Blood 0.0 Cells % Immature 0.020 Granulocytes # Neutrophils # 5.1 Lymphocytes # 1.8 Monocytes # 1.1 H Eosinophils # 1.0 H Basophils # 0.1 Nucleated Red Blood 0.0 Cells # Sodium Level 137 Potassium Level 4.9 Chloride Level 97 Carbon Dioxide Level 33 H Anion Gap 7 Blood Urea Nitrogen 24 H Creatinine 3.74 H Est Glomerular 15 L Filtrat Rate mL/min Glucose Level 67 #L Calcium Level 8.9 Phosphorus Level 4.0 Magnesium Level 2.0 Test 04/13/18 08:48 04/13/18 11:00 04/13/18 11:59 Bedside Glucose 99 109 Stool Occult Blood NEGATIVE Exam/Review of Systems Vital Signs Vitals Vital Signs Date Temp Pulse Resp B/P (MAP) Pulse Ox O2 O2 Flow FiO2 Time Delivery Rate 04/13/18 71 17 105/78 97 Room Air 12:59 (87) 04/13/18 98.6 07:54 Exam Constitutional: alert, oriented Respiratory: clear to auscultation Cardiovascular: rnl pulse Gastrointestinal: soft, distended Musculoskeletal: nl extremities to inspection Extremities: normal pulses Additional Comments Left chest tunneled hemodialysis catheter Medications Medications Current Medications Ondansetron HCl (Zofran Inj) 4 mg Q6H PRN IV NAUSEA AND/OR VOMITING Last administered on 04/03/18 13:37; Admin Dose 4 MG; Start 03/16/18 at 18:30 Clonidine (Catapres) 0.1 mg Q6H PRN PO ELEVATED BLOOD PRESSURE Last admini stered on 03/18/18at 02:50; Admin Dose 0.1 MG; Start 03/16/18 at 20:30 Calcitriol (Rocaltrol) 0.25 mcg DAILY PO Last administered on 04/13/18 08:07; Admin Dose 0.25 MCG; Start 03/17/18 at 09:00 Levetiracetam (Keppra) 500 mg BID PO Last administered on 04/13/18 08:06; Admin Dose 500 MG; Start 03/16/18 at 21:00 Nifedipine (Procardia Xl) 30 mg DAILY PO Last administered on 04/13/18 08:07; Admin Dose 30 MG; Start 03/17/18 at 09:00 Pantoprazole (Protonix Tab) 40 mg AC BREAKFAST PO Last administered on 04/13/18 06:03; Admin Dose 40 MG; Start 03/17/18 at 07:00 Quetiapine Fumarate (Seroquel) 300 mg DAILY PO Last administered on 04/13/18 08:07; Admin Dose 300 MG; Start 03/17/18 at 09:00 Sevelamer Carbonate (Renvela) 1.6 gm WITH MEALS PO Last administered on 04/13/18 12:01; Admin Dose 1.6 GM; Start 03/17/18 at 08:00 Miscellaneous Information 1 ea NOTE XX ; Start 03/16/18 at 21:30 Glucose (Glutose) 15 gm Q15M PRN PO DECREASED GLUCOSE; Start 03/16/18 at 21:30 Glucose (Glutose) 22.5 gm Q15M PRN PO DECREASED GLUCOSE; Start 03/16/18 at 21:30 Dextrose (D50w Syringe) 25 ml Q15M PRN IV DECREASED GLUCOSE; Start 03/16/18 at 21:30 Dextrose (D50w Syringe) 50 ml Q15M PRN IV DECREASED GLUCOSE; Start 03/16/18 at 21:30 Glucagon (Glucagen) 1 mg Q15M PRN IM DECREASED GLUCOSE; Start 03/16/18 at 21:30 Glucose (Glutose) 15 gm Q15M PRN BUCCAL DECREASED GLUCOSE; Start 03/16/18 at 21:30 Labetalol HCl (Normodyne) 200 mg BID PO Last administered on 04/13/18 08:07; Admin Dose 200 MG; Start 03/16/18 at 22:00 Loperamide HCl (Imodium Cap) 2 mg Q6H PRN PO diarrhea Last administered on 03/20/18at 01:12; Admin Dose 2 MG; Start 03/17/18 at 03:30 Acetaminophen (Tylenol Tab) 650 mg Q6H PRN PO MILD PAIN(1-3)OR ELEVATED TEMP Last administered on 03/19/18at 07:55; Admin Dose 650 MG; Start 03/17/18 at 14:00 Hydralazine HCl (Apresoline) 25 mg Q6H PRN PO ELEVATED SYSTOLIC BP Last administered on 03/19/18at 18:13; Admin Dose 25 MG; Start 03/18/18 at 05:30 Heparin Sodium (Porcine) (Heparin (1000 Units/ml)) 2,300 unit AFTER DIALYSIS CATHETER Last administered on 04/12/18 00:47; Admin Dose 2,300 UNIT; Start 03/18/18 at 22:00 Collagenase (Santyl) 1 applic PRN PRN TOP WHEN SOILED Last administered on 03/23/18 21:45; Admin Dose 1 APPLIC; Start 03/19/18 at 19:30 Hydralazine HCl (Apresoline) 10 mg Q6H PRN IV elevated BP Last administered on 04/12/18 08:45; Admin Dose 10 MG; Start 03/19/18 at 19:30 Multivit/Ca Carb/ B Cmplx/FA/Prenat (Alena-Martin) 1 tab DAILY PO Last administered on 04/13/18 08:06; Admin Dose 1 TAB; Start 03/24/18 at 09:00 Quetiapine Fumarate (Seroquel) 300 mg QHS PO Last administered on 04/12/18 20:54; Admin Dose 300 MG; Start 03/27/18 at 21:00 Citalopram Hydrobromide (Celexa) 20 mg DAILY PO Last administered on 04/13/18 08:07; Admin Dose 20 MG; Start 03/27/18 at 10:30 Diagnostic Test (Pha) (Accu-Chek) 1 ea 02 XX ; Start 03/30/18 at 02:00 Cholecalciferol (Vitamin D) 2,000 unit DAILY PO Last administered on 04/13/18 08:06; Admin Dose 2,000 UNIT; Start 03/30/18 at 09:30 Insulin Aspart (Novolog Insulin Pen) (Adult SC Insulin - Moder... WITH MEALS BEDTIME SC ; Start 03/30/18 at 12:00 Ceftriaxone Sodium 50 ml @ 100 mls/hr Q24H IVPB Last administered on 04/13/18 12:24; Admin Dose 100 MLS/HR; Start 04/01/18 at 09:30 Morphine Sulfate (morphine) 10 mg Q4H PRN PO SEVERE PAIN LEVEL 7-10 Last administered on 04/12/18 22:11; Admin Dose 10 MG; Start 04/03/18 at 13:30 Diphenhydramine HCl (Benadryl) 50 mg Q6H PRN IV itching Last administered on 04/13/18 12:15; Admin Dose 50 MG; Start 04/04/18 at 06:00 Buspirone HCl (Buspar) 10 mg BID PO Last administered on 04/13/18 08:07; Admin Dose 10 MG; Start 04/08/18 at 09:00 Lubiprostone (Amitiza) 24 mcg BID PO Last administered on 04/13/18at 08:07; Admin Dose 24 MCG; Start 04/11/18 at 21:00 Epoetin Clinton (Epogen (Esrd)) 10,000 units AFTER DIALYSIS SC ; Start 04/12/18 at 11:30 BLAKE MORALES Apr 13, 2018 15:18
[2018-04-13] MEDS ORDERED: morphine SULFATE/PF (2 MG/2 ML) SYG IV STA (15:51)
[2018-04-13] MEDS ORDERED: morphine 4 MG/ML VIAL IV SCH (16:05)
[2018-04-13] MEDS ORDERED: LIDOCAINE 1% (MPF) 5 ML VIAL ONE (17:20)
--- NOTE | 2018-04-13 17:29 | NUR ---
PARACENTESIS COMPLETE. 10ML OF LIDOCAINE WAS ADMINISTERED BY DR. STEWARD PRIOR TO CATH PLACEMENT. 2500ML OF ASCITES WAS ASPIRATED AND A SAMPLE WAS SENT TO THE LAB.
--- NOTE | 2018-04-13 18:18 | NUR ---
END OF SHIFT SUMMARY Pt alert x1. All due meds given as ordered. Accu-check done as indicated. Pt hypoglycemic in the AM, juice given. Pt tolerated well, stable. Dialysis this AM with 220ml output. Pt also consented to Paracentesis. Morphine 2mg IV given prior to chart picker. Pt came back stable. Pt refused wound care. Educated pt on the importance to allow proper wound care daily and as ordered. Pt was upset and confused. Plan is for pt to be discharged tomorrow to SNF. Will continue to monitor and endorse new plan of care to oncoming shift.
[2018-04-13] MEDS: morphine LIQ (10 MG/5 ML) CUP PO PRN (20:05)
[2018-04-14] MEDS: ACCU-CHEK XX SCH (01:52)
[2018-04-14 02:00] VITALS: BP 130/67; PULSE 73; RESP 18
[2018-04-14] MEDS: DIPHENHYDRAMINE 50 MG INJ IV PRN ×2 (04:16→17:15)
--- NOTE | 2018-04-14 06:00 | NUR ---
EOSS: pt. rested comfortably overnight. Pt. medicated for pain as requested. Blood glucose was monitored. No insulin needed. Encouraged pt. to make frequent position changes. Plan is for pt. to be discharged today. Will endorse care to oncoming nurse
[2018-04-14] MEDS: PANTOPRAZOLE (EC) 40 MG TAB PO SCH (06:24)
[2018-04-14 08:00] VITALS: BP 174/91; PULSE 73; RESP 18
[2018-04-14] MEDS: Insulin NOVOLOG SS MODERATE Algorithm (SS with meals and bedtime) SC SCH ×4 (08:00→20:24)
--- NOTE | 2018-04-14 08:42 | PN ---
DATE: 04/14/2018 SUBJECTIVE: The patient had hemodialysis yesterday, tolerated well. No other events noted. OBJECTIVE: VITAL SIGNS: Blood pressure is 130/67, respirations 18, pulse 73, temperature 98.3. HEENT: Head is normocephalic. NECK: Supple. HEART: Regular rate. LUNGS: Show diminished breath sounds at the base. ABDOMEN: Soft, nontender to palpation without rebound or guarding. EXTREMITIES: Negative for clubbing, cyanosis, no edema. DERMATOLOGIC: No rashes. MUSCULOSKELETAL: No joint effusion. NEUROLOGIC: No change in exam. MEDICATIONS: Reviewed. LABORATORY DATA: Reviewed. ASSESSMENT AND PLAN: 1. End-stage renal disease. The patient had hemodialysis yesterday. Plan is for dialysis again dipesh orrow. 2. Mineral bone disorder. Monitor calcium and phosphorus levels. Continue vitamin D analogs and ph osphate binders. 3. Anemia. Continue to monitor hemoglobin and hematocrit levels. Continue Epogen. 4. Volume overload, improving. 5. Liver disease, cirrhosis with SBP. The patient is completing antibiotic course. Continue to mon itor. 6. Hypertension. Continue current blood pressure regimen. 7. Gastritis. Continue proton pump inhibitor. 8. Depressive disorder, psychosis. Continue Seroquel. Dictated By: SHILO LIU DO NR/NTS Conf#: [id number] DID#: [id number] CC: RAYMUNDO DOUGLASS MD; JF KAISER MD;*EndCC*
[2018-04-14] MEDS: SEVELAMER CARBONATE 0.8 GM PKT PO SCH ×3 (09:09→17:16)
[2018-04-14] MEDS: CALCITRIOL 0.25 MCG CAP PO SCH (09:10)
[2018-04-14] MEDS: CITALOPRAM 20 MG TAB PO SCH (09:10)
[2018-04-14] MEDS: BUSPIRONE 5 MG TAB PO SCH ×2 (09:10→20:25)
[2018-04-14] MEDS: MULTIVIT/CA CARB/B CMPLX/FA TAB PO SCH (09:10)
[2018-04-14] MEDS: LEVETIRACETAM 500 MG TAB PO SCH ×2 (09:11→20:24)
[2018-04-14] MEDS: LABETALOL 200 MG TAB PO SCH ×2 (09:11→20:27)
[2018-04-14] MEDS: QUETIAPINE 100 MG TAB PO SCH ×2 (09:11→20:25)
[2018-04-14] MEDS: CHOLECALCIFEROL 2,000 UNIT CAP PO SCH (09:12)
[2018-04-14] MEDS: NIFEdipine (XL) 30 MG TAB PO SCH (09:12)
[2018-04-14] MEDS: morphine LIQ (10 MG/5 ML) CUP PO PRN (09:14)
[2018-04-14] MEDS: CEFTRIAXONE 1 GM/NS 50 ML IVPB SCH (09:22)
--- NOTE | 2018-04-14 10:13 | NUR ---
jack# [id number] 04/15/18
--- NOTE | 2018-04-14 10:14 | CONS ---
Assessment/Plan Assessment/Plan Assessment/Plan . Abdominal pain -secondary to sbp -Ascites fluid: stilll neutrocytic ascites despite two weeks cefotaxime, culture including afp, fungal to date negative paracentesis yesterdAY 2. Diarrhea -ressolved Mildly elevated lipase with mid abd pain radiating to back 4. Mild generalized small and large bowel wall thickening which per CT 03/01 could represent third spacing. 5. Hemorrhoids per pt 6. Mild hepatomegaly 7. Anemia, likely due to chronic disease -Ferritin high: trending up 354 03/21 and 818 (04/11), Iron wnl, TIBC low, B12 wnl, folate wnl, FOB negative 03/28, Retic 04/11 1.7 -no evidence of GI bleeding 8. End stage renal disease on HD 9. Cardiomegaly with mild lower lung pulmonary edema with small left effusion and mild diffuse ascites 10. Anasarca and ascites -s/p paracentesis 03/15, 03/19, 03/26, 03/30 11. Diabetes 12. Hypertension 13. Elevated alk phos secondary to chronic liver disease 14. Mildly dilated biliary system with CBD measuring 10mm -s/p ercp: stone removed 02/2018 15. Chronic liver disease 16. Spontaneous bacterial peritonitis -started on cefotaxime 2 gm IV q 8 hours -cultures negative including afb wbc 1368, 60% pmn consider id consult for opinion. Result Diagram: 04/13/18 0804 04/13/18 0804 Results 24hrs Laboratory Tests Test 04/13/18 11:00 04/13/18 11:59 04/13/18 17:15 04/13/18 17:47 Stool Occult Blood NEGATIVE Bedside Glucose 109 108 Body Fluid Type ASCITES Body Fluid Volume 1050.0 Body Fluid Color YELLOW Body Fluid CLOUDY Appearance Body Fluid WBC 1368 Body Fluid RBC 1000 (Auto) Body Fluid 66.7 Polynuclear WBCs (%) Body Fluid 33.3 Mononuclear Cells % Auto Test 04/13/18 20:08 04/14/18 08:58 Bedside Glucose 92 93 Consultation Date/Type/Reason Admit Date/Time Mar 16, 2018 at 14:01 Initial Consult Date Exam/Review of Systems Vital Signs Vitals Vital Signs Date Temp Pulse Resp B/P (MAP) Pulse Ox O2 O2 Flow FiO2 Time Delivery Rate 04/14/18 97.9 73 18 174/91 98 08:00 (118) 04/13/18 Nasal 20:00 Cannula Intake and Output 04/13/18 04/13/18 04/14/18 1515:00 23:00 07:00 IntakeIntake Total 50 ml 700 ml OutputOutput Total 720 ml BalanceBalance -670 ml 700 ml Medications Medications Current Medications Ondansetron HCl (Zofran Inj) 4 mg Q6H PRN IV NAUSEA AND/OR VOMITING Last administered on 04/03/18 13:37; Admin Dose 4 MG; Start 03/16/18 at 18:30 Clonidine (Catapres) 0.1 mg Q6H PRN PO ELEVATED BLOOD PRESSURE Last administered on 03/18/18at 02:50; Admin Dose 0.1 MG; Start 03/16/18 at 20:30 Calcitriol (Rocaltrol) 0.25 mcg DAILY PO Last administered on 04/14/18 09:10; Admin Dose 0.25 MCG; Start 03/17/18 at 09:00 Levetiracetam (Keppra) 500 mg BID PO Last administered on 04/14/18 09:11; Admin Dose 500 MG; Start 03/16/18 at 21:00 Nifedipine (Procardia Xl) 30 mg DAILY PO Last administered on 04/14/18 09:12; Admin Dose 30 MG; Start 03/17/18 at 09:00 Pantoprazole (Protonix Tab) 40 mg AC BREAKFAST PO Last administered on 04/14/18 06:24; Admin Dose 40 MG; Start 03/17/18 at 07:00 Quetiapine Fumarate (Seroquel) 300 mg DAILY PO Last administered on 04/14/18 09:11; Admin Dose 300 MG; Start 03/17/18 at 09:00 Sevelamer Carbonate (Renvela) 1.6 gm WITH MEALS PO Last administered on 04/14/18 09:09; Admin Dose 1.6 GM; Start 03/17/18 at 08:00 Miscellaneous Information 1 ea NOTE XX ; Start 03/16/18 at 21:30 Glucose (Glutose) 15 gm Q15M PRN PO DECREASED GLUCOSE; Start 03/16/18 at 21:30 Glucose (Glutose) 22.5 gm Q15M PRN PO DECREASED GLUCOSE; Start 03/16/18 at 21:30 Dextrose (D50w Syringe) 25 ml Q15M PRN IV DECREASED GLUCOSE; Start 03/16/18 at 21:30 Dextrose (D50w Syringe) 50 ml Q15M PRN IV DECREASED GLUCOSE; Start 03/16/18 at 21:30 Glucagon (Glucagen) 1 mg Q15M PRN IM DECREASED GLUCOSE; Start 03/16/18 at 21:30 Glucose (Glutose) 15 gm Q15M PRN BUCCAL DECREASED GLUCOSE; Start 03/16/18 at 21:30 Labetalol HCl (Normodyne) 200 mg BID PO Last administered on 04/14/18 09:11; Admin Dose 200 MG; Start 03/16/18 at 22:00 Loperamide HCl (Imodium Cap) 2 mg Q6H PRN PO diarrhea Last administered on 03/20/18at 01:12; Admin Dose 2 MG; Start 03/17/18 at 03:30 Acetaminophen (Tylenol Tab) 650 mg Q6H PRN PO MILD PAIN(1-3)OR ELEVATED TEMP Last administered on 03/19/18at 07:55; Admin Dose 650 MG; Start 03/17/18 at 14:00 Hydralazine HCl (Apresoline) 25 mg Q6H PRN PO ELEVATED SYSTOLIC BP Last administered on 03/19/18at 18:13; Admin Dose 25 MG; Start 03/18/18 at 05:30 Heparin Sodium (Porcine) (Heparin (1000 Units/ml)) 2,300 unit AFTER DIALYSIS CATHETER Last administered on 04/12/18 00:47; Admin Dose 2,300 UNIT; Start 03/18/18 at 22:00 Collagenase (Santyl) 1 applic PRN PRN TOP WHEN SOILED Last administered on 03/23/18 21:45; Admin Dose 1 APPLIC; Start 03/19/18 at 19:30 Hydralazine HCl (Apresoline) 10 mg Q6H PRN IV elevated BP Last administered on 04/12/18 08:45; Admin Dose 10 MG; Start 03/19/18 at 19:30 Multivit/Ca Carb/ B Cmplx/FA/Prenat (Alena-Martin) 1 tab DAILY PO Last administered on 04/14/18 09:10; Admin Dose 1 TAB; Start 03/24/18 at 09:00 Quetiapine Fumarate (Seroquel) 300 mg QHS PO Last administered on 04/13/18 20:16; Admin Dose 300 MG; Start 03/27/18 at 21:00 Citalopram Hydrobromide (Celexa) 20 mg DAILY PO Last administered on 04/14/18 09:10; Admin Dose 20 MG; Start 03/27/18 at 10:30 Diagnostic Test (Pha) (Accu-Chek) 1 ea 02 XX ; Start 03/30/18 at 02:00 Cholecalciferol (Vitamin D) 2,000 unit DAILY PO Last administered on 04/14/18at 09:12; Admin Dose 2,000 UNIT; Start 03/30/18 at 09:30 Insulin Aspart (Novolog Insulin Pen) (Adult SC Insulin - Moder... WITH MEALS BEDTIME SC ; Start 03/30/18 at 12:00 Ceftriaxone Sodium 50 ml @ 100 mls/hr Q24H IVPB Last administered on 04/14/18 09:22; Admin Dose 100 MLS/HR; Start 04/01/18 at 09:30 Morphine Sulfate (morphine) 10 mg Q4H PRN PO SEVERE PAIN LEVEL 7-10 Last admini stered on 04/14/18at 09:14; Admin Dose 10 MG; Start 04/03/18 at 13:30 Diphenhydramine HCl (Benadryl) 50 mg Q6H PRN IV itching Last administered on 04/14/18at 04:16; Admin Dose 50 MG; Start 04/04/18 at 06:00 Buspirone HCl (Buspar) 10 mg BID PO Last administered on 04/14/18at 09:10; Admin Dose 10 MG; Start 04/08/18 at 09:00 Lubiprostone (Amitiza) 24 mcg BID PO Last administered on 04/13/18at 20:09; A dmin Dose 24 MCG; Start 04/11/18 at 21:00 Epoetin Clinton (Epogen (Esrd)) 10,000 units MoWeFr@17 SC ; Start 04/14/18 at 17:00 Date/Time of Note Date/Time of Note DATE: 04/14/18 TIME: 10:08 ELEN MIJARES MD Apr 14, 2018 10:14
[2018-04-14] MEDS: LUBIPROSTONE 24 MCG CAP PO SCH ×2 (10:53→20:24)
--- NOTE | 2018-04-14 11:13 | NUR ---
GIULIANO Notes: Still has a bed at [facility], t/c made to Madyson of [facility] ([phone] ext [phone]) to discuss [facility] case, as per Madyson she is still working on the HD placement of this patient. Possible acceptance to [facility]. She will follow up today for the palcement if patient got accepted. Will follow the case. GIULIANO ext [phone]
--- NOTE | 2018-04-14 12:27 | NUR ---
PT NOTE Therapy day number 8 Subjective Denies pain Pain Intensity 0 (0-10) Patient Stated Goal for Pain Relief 0 (0-10) Pain Level Comment no c/o pain Transfer Training Start Time 12:27 Supine to Sit Minimum Assist Transfer Sit to Stand Ability Contact Guard Assist Bed Mobility Sit to Supine Stand by Assist Bed Transfer Ability Contact Guard Assist Chair Transfer Ability Moderate Assist Toileting Ability Stand by Assist Sitting Tolerance 25 min Additional Mobility Comments Neno pericare, Neno sit to stand(STS) from EOB, ModA STS from toilet no AD Transfer Training End Time 12:50 Total Transfer Training Time 23 min (8-127) Gait Training Start Time 12:50 Gait Assist Levels Contact Guard Assist Assistive Devices Front Wheel Walker Ambulation Distance 10 feet Additional Gait Comments flexed posture, recipr, dec cad/step length/JONH, no LOB, unsteady Gait Training End Time 13:05 Total Gait Training Treatment Time 15 min (8-127) Static Sitting Balance Fair Dynamic Sitting Balance Fair Standing Static Balance Fair Dynamic Standing Balance Fair Additional Balance Assessments Comments with FWW Safety Judgement Fair Activity Tolerance Fair Equipment Present A pump Post Treatment Pain Intensity 0 0-10 Total Treament Time 38 min (8-127) Total Minutes 38 Total Units 3 PT Technical Record Comment PT NOTE S: Pt has no c/o pain or dizziness pre-tx, agreeable to PT. Cleared for PT Per AGUSTO Cornelius. O: Pt received semifowler in bed, alert and appropriate, no apparent distress, on RA. Performed bed mobility, transfer and gait tr per tech record above with FWW Neno to SBA. Pt positioned for comfort in semifowler post-tx with call light and needs in reach, RN requested to assist with additonal repositioning for comfort. Bed alarm armed post-tx, pt in no apparent distress, RN informed re pt status. A: Pt millie tx fairly, limited by weakness, decreased endurance, decreased participation P: Cont POC
[2018-04-14 14:00] VITALS: BP 129/67; PULSE 68; RESP 18
--- NOTE | 2018-04-14 17:06 | PN ---
Date/Time of Note Date/Time of Note DATE: 04/14/18 TIME: 16:59 Assessment/Plan VTE Prophylaxis Risk score (from Ns)>0 risk: 5 SCD applied (from Ns): Yes Pharmacological prophylaxis: NA/contraindicated Pharm contraindication: liver dx Lines/Catheters IV Catheter Type (from [facility] Permacath Urinary Cath still in place: No Assessment/Plan Hospital Course Pt is s/p paracentesis yesterday, stable VS, no fever. Assessment/Plan -SBP, s/p treatment with Rocephin, cultures negative including afb, wbc 1368, 60% pmn, started on cefotaxime by GI. Dr Goel is asked to see pt in ID consultation. -Abdominal pain status post ERCP with sphincterectomy, removal of stone and stenting by Dr. Webb. -Chronic liver disease, likely cirrhotic. -Anasarca and ascites, s/p paracentesis on 03/15, 03/19, 03/26, 03/30. -Hemodialysis dependent end-stage renal disease. Continue hemodialysis per nephrology. Dr. Bledsoe is following in nephrology consultation -Hypertension, continue Procardia and hydralazine as needed. -Diabetes, NovoLog per mild algorithm sliding scale -Seizure disorder, continue Keppra -Gastritis, continue PPI -Anemia of chronic disease, continue Epogen -Depressive disorder with psychosis. Continue Seroquel. Further recommendations based on clinical course. Plan of care discussed with Dr. Smith. Result Diagram: 04/13/18 0804 04/13/18 0804 Results 24hrs Laboratory Tests Test 04/13/18 17:15 04/13/18 17:47 04/13/18 20:08 04/14/18 08:58 Body Fluid Type ASCITES Body Fluid Volume 1050.0 Body Fluid Color YELLOW Body Fluid CLOUDY Appearance Body Fluid WBC 1368 Body Fluid RBC 1000 (Auto) Body Fluid 66.7 Polynuclear WBCs (%) Body Fluid 33.3 Mononuclear Cells % Auto Bedside Glucose 108 92 93 Test 04/14/18 12:43 Bedside Glucose 157 Exam/Review of Systems Vital Signs Vitals Vital Signs Date Temp Pulse Resp B/P (MAP) Pulse Ox O2 O2 Flow FiO2 Time Delivery Rate 04/14/18 97.9 68 18 129/67 95 14:00 (87) 1/22/19 Nasal 20:00 Cannula Intake and Output 04/13/18 04/13/18 04/14/18 1515:00 23:00 07:00 IntakeIntake Total 50 ml 700 ml OutputOutput Total 720 ml BalanceBalance -670 ml 700 ml Exam Constitutional: alert, oriented Respiratory: clear to auscultation Cardiovascular: rnl pulse Gastrointestinal: soft, distended Musculoskeletal: nl extremities to inspection Extremities: normal pulses Additional Comments Left chest tunneled hemodialysis catheter Medications Medications Current Medications Ondansetron HCl (Zofran Inj) 4 mg Q6H PRN IV NAUSEA AND/OR VOMITING Last administered on 04/03/18 13:37; Admin Dose 4 MG; Start 03/16/18 at 18:30 Clonidine (Catapres) 0.1 mg Q6H PRN PO ELEVATED BLOOD PRESSURE Last administered on 03/18/18 02:50; Admin Dose 0.1 MG; Start 03/16/18 at 20:30 Calcitriol (Rocaltrol) 0.25 mcg DAILY PO Last administered on 04/14/18 09:10; Admin Dose 0.25 MCG; Start 03/17/18 at 09:00 Levetiracetam (Keppra) 500 mg BID PO Last administered on 04/14/18 09:11; Admin Dose 500 MG; Start 03/16/18 at 21:00 Nifedipine (Procardia Xl) 30 mg DAILY PO Last administered on 04/14/18 09:12; Admin Dose 30 MG; Start 03/17/18 at 09:00 Pantoprazole (Protonix Tab) 40 mg AC BREAKFAST PO Last administered on 04/14/18 06:24; Admin Dose 40 MG; Start 03/17/18 at 07:00 Quetiapine Fumarate (Seroquel) 300 mg DAILY PO Last administered on 04/14/18 09:11; Admin Dose 300 MG; Start 03/17/18 at 09:00 Sevelamer Carbonate (Renvela) 1.6 gm WITH MEALS PO Last administered on 04/14/18 12:36; Admin Dose 1.6 GM; Start 03/17/18 at 08:00 Miscellaneous Information 1 ea NOTE XX ; Start 03/16/18 at 21:30 Glucose (Glutose) 15 gm Q15M PRN PO DECREASED GLUCOSE; Start 03/16/18 at 21:30 Glucose (Glutose) 22.5 gm Q15M PRN PO DECREASED GLUCOSE; Start 03/16/18 at 21:30 Dextrose (D50w Syringe) 25 ml Q15M PRN IV DECREASED GLUCOSE; Start 03/16/18 at 21:30 Dextrose (D50w Syringe) 50 ml Q15M PRN IV DECREASED GLUCOSE; Start 03/16/18 at 21:30 Glucagon (Glucagen) 1 mg Q15M PRN IM DECREASED GLUCOSE; Start 03/16/18 at 21:3 0 Glucose (Glutose) 15 gm Q15M PRN BUCCAL DECREASED GLUCOSE; Start 03/16/18 at 21:30 Labetalol HCl (Normodyne) 200 mg BID PO Last administered on 04/14/18 09:11; Admin Dose 200 MG; Start 03/16/18 at 22:00 Loperamide HCl (Imodium Cap) 2 mg Q6H PRN PO diarrhea Last administered on 03/20/18at 01:12; Admin Dose 2 MG; Start 03/17/18 at 03:30 Acetaminophen (Tylenol Tab) 650 mg Q6H PRN PO MILD PAIN(1-3)OR ELEVATED TEMP Last administered on 03/19/18at 07:55; Admin Dose 650 MG; Start 03/17/18 at 14:00 Hydralazine HCl (Apresoline) 25 mg Q6H PRN PO ELEVATED SYSTOLIC BP Last administered on 03/19/18at 18:13; Admin Dose 25 MG; Start 03/18/18 at 05:30 Heparin Sodium (Porcine) (Heparin (1000 Units/ml)) 2,300 unit AFTER DIALYSIS CATHETER Last administered on 04/12/18 00:47; Admin Dose 2,300 UNIT; Start 03/18/18 at 22:00 Collagenase (Santyl) 1 applic PRN PRN TOP WHEN SOILED Last administered on 03/23/18 21:45; Admin Dose 1 APPLIC; Start 03/19/18 at 19:30 Hydralazine HCl (Apresoline) 10 mg Q6H PRN IV elevated BP Last administered on 04/12/18 08:45; Admin Dose 10 MG; Start 03/19/18 at 19:30 Multivit/Ca Carb/ B Cmplx/FA/Prenat (Alena-Martin) 1 tab DAILY PO Last administered on 04/14/18 09:10; Admin Dose 1 TAB; Start 03/24/18 at 09:00 Quetiapine Fumarate (Seroquel) 300 mg QHS PO Last administered on 04/13/18 20:16; Admin Dose 300 MG; Start 03/27/18 at 21:00 Citalopram Hydrobromide (Celexa) 20 mg DAILY PO Last administered on 04/14/18 09:10; Admin Dose 20 MG; Start 03/27/18 at 10:30 Diagnostic Test (Pha) (Accu-Chek) 1 ea 02 XX ; Start 03/30/18 at 02:00 Cholecalciferol (Vitamin D) 2,000 unit DAILY PO Last administered on 04/14/18 09:12; Admin Dose 2,000 UNIT; Start 03/30/18 at 09:30 Insulin Aspart (Novolog Insulin Pen) (Adult SC Insulin - Moder... WITH MEALS BEDTIME SC ; Start 03/30/18 at 12:00 Ceftriaxone Sodium 50 ml @ 100 mls/hr Q24H IVPB Last administered on 04/14/18 09:22; Admin Dose 100 MLS/HR; Start 04/01/18 at 09:30 Morphine Sulfate (morphine) 10 mg Q4H PRN PO SEVERE PAIN LEVEL 7-10 Last administered on 04/14/18 09:14; Admin Dose 10 MG; Start 04/03/18 at 13:30 Diphenhydramine HCl (Benadryl) 50 mg Q6H PRN IV itching Last administered on 04/14/18 04:16; Admin Dose 50 MG; Start 04/04/18 at 06:00 Buspirone HCl (Buspar) 10 mg BID PO Last administered on 04/14/18 09:10; Admin Dose 10 MG; Start 04/08/18 at 09:00 Lubiprostone (Amitiza) 24 mcg BID PO Last administered on 04/14/18 10:53; Admin Dose 24 MCG; Start 04/11/18 at 21:00 Epoetin Clinton (Epogen (Esrd)) 10,000 units MoWeFr@17 SC ; Start 04/14/18 at 17:00 BLAKE MORALES Apr 14, 2018 17:06
[2018-04-14] MEDS: EPOETIN 10000 UNITS/1 ML INJ (ESRD) SC SCH (17:16)
--- NOTE | 2018-04-14 17:44 | CONS ---
DATE OF ADMISSION: 03/16/2018 DATE OF CONSULTATION: 04/14/2018 TYPE OF CONSULTATION: Infectious disease. REASON FOR CONSULTATION: Antibiotic management. HISTORY OF PRESENT ILLNESS: Abiodun Isidro is a 52-year-old female who has been hospitalized now for over a month. She comes in with a number of problems includin. Diabetes. 2. Hypertension. 3. Hyperlipidemia. 4. End-stage renal disease, on hemodialysis. 5. Ascites, status post paracentesis on the day prior to admission. 6. Depression. 7. Seizure disorder. 8. Gastritis. She presents to the emergency room via rescue ambulance complaining of abdominal pain. She has been having this pain for over several weeks, sharp, crampy, radiates to the back, diarrhea without nausea or vomiting. No relief or exacerbating factors. Denies chest pain. She was hospitalized on 2017 and signed out against medical advice. She now returns, complaining of worsening pain and wants to be readmitted. Her past problems include hypertension as noted and bipolar affect. On admission , her white count is 11.5, H and H of 8.4 and 27.2, platelet count 321,000. BUN and creatinine is 32 /4.26. The patient has an AV shunt in the left upper extremity with palpable thrill. She also had o n admission drainage bag in the right lower quadrant placed post-paracentesis for leakage. The patie nt was seen by multiple consultants. An MRCP on 03/18/2018 shows enlarged liver with suggestion of m ild liver surface nodularity, chronic hepatic parenchymal disease is suspected. Diffusely decreased T2 signal intensity of the liver and spleen can represent hemosiderin deposition likely in the settin g of secondary hemochromatosis, large volume ascites and wall thickening of the gallbladder without g allstones. This likely relates to presence of large volume ascites, wall thickening of multiple loop s of small bowel may also relate to presence of ascites. No intrahepatic biliary ductal dilatation, mild extrahepatic biliary ductal dilatation measuring up to 10 mm in the mid common bile duct with gr adual distal tapering, no filling defects along the course of the common bile duct within the limitat ions of this exam could represent choledocholithiasis. If LFTs are abnormal, we will consider ERCP. The patient was started on ceftriaxone for the possibility of spontaneous bacterial peritonitis. Al l of her cultures so far have been negative. Her white count on 04/13/2018 was 9.0. She had ascites on 04/13/2018 which showed 1368 white cells per high-power field. White cell on 04/09/2018 also wit h 886 white cells per high-power field. A paracentesis was done on 04/13/2018. A 2.5 liters of sero us fluid was aspirated. Abdominal ultrasound: Small amount of ascites was seen after the paracentes is. She had placement of left internal jugular venous tunneled dialysis catheter done on 03/30/2018. The patient on 04/13/2018 had hemodialysis, abdominal pain, status post ERCP with sphincterotomy, r emoval of stone and stenting by Dr. Webb, chronic liver disease likely cirrhosis, anasarca, ascites , status post paracentesis on ____, hemodialysis dependent end-stage renal disease per Dr. Bledsoe. PAST MEDICAL HISTORY: Operations as outlined. FAMILY HISTORY: Noncontributory. SOCIAL HISTORY: She does not smoke, drink or abuse drugs. ALLERGIES: NONE TO PENICILLIN, SULFA OR FOODS. MEDICATIONS: Per chart. REVIEW OF SYSTEMS: As per HPI. PHYSICAL EXAMINATION: GENERAL: The patient is well-developed, well-nourished female who is alert, responsive, in no acute distress. VITAL SIGNS: Stable. She is afebrile. SKIN: Without generalized rash. HEENT: Within normal limits. NECK: Supple. LYMPH NODES: None palpable. CHEST: Decreased breath sounds at the bases. Chest wall: She has a left chest tunneled hemodialysi s catheter. HEART: Without murmur or gallop. ABDOMEN: Soft, nontender, without organosplenomegaly or masses. EXTREMITIES: Without cyanosis, clubbing or edema. RECTAL AND GENITAL: Deferred. NEUROLOGIC: No focal neurological abnormality. SKIN: The patient does have anasarca. She has recurrent ascites. IMPRESSION AND PLAN: My impression is that at this point we should stop the antibiotics and observe to see if she spikes any fever or has any other evidence of sepsis. She has been on cefotaxime 2 gra ms q.8 14 days which should be more than adequate if we are treating the right organism. Alternative ly, we could possibly have a Staphylococcus infection; however, I doubt it and most likely organisms would be an Escherichia coli, Klebsiella and actually Streptococcus. I will dictate my findings to Hannah Douglass and various consultants including Dr. Bledsoe, ____ and Dr. Webb. Dictated By: CHARLETTE TAYLOR MD, JD/ANTONINO Conf#: [id number] DID#: [id number] CC: JF KAISER MD; RAYMUNDO DOUGLASS MD;*EndCC*
--- NOTE | 2018-04-14 17:47 | NUR ---
AOX3, NEW IV INSERTED, PT NOT D/C TODAY, GI MD WANTS AN ID CONSULT, WOUND DRESSING CHANGED, PT WILL HAVE HD TOMORROW PER MD ORDER
[2018-04-14 20:26] VITALS: BP 130/83; PULSE 74; RESP 18
[2018-04-15] VITALS (19 sets, daily range): BP systolic 96–162; BP diastolic 59–93; PULSE 67–97; RESP 16–18
[2018-04-15] MEDS: ACCU-CHEK XX SCH (02:00)
[2018-04-15] MEDS: PANTOPRAZOLE (EC) 40 MG TAB PO SCH (06:05)
--- NOTE | 2018-04-15 06:59 | NUR ---
Patient calm and comfortable on bed, able to make needs known. No fever, no chills, no nausea, no vomiting, no abdominal pain, no diarrhea noted overnight. Will continue to monitor. ue medications given, no a/r noted at this time.
[2018-04-15] MEDS: Insulin NOVOLOG SS MODERATE Algorithm (SS with meals and bedtime) SC SCH ×4 (08:00→20:46)
[2018-04-15] MEDS: DIPHENHYDRAMINE 50 MG INJ IV PRN ×2 (08:28→21:45)
[2018-04-15] MEDS: BUSPIRONE 5 MG TAB PO SCH ×2 (08:31→20:41)
[2018-04-15] MEDS: SEVELAMER CARBONATE 0.8 GM PKT PO SCH ×3 (08:31→17:31)
[2018-04-15] MEDS: QUETIAPINE 100 MG TAB PO SCH ×2 (08:31→20:41)
[2018-04-15] MEDS: CITALOPRAM 20 MG TAB PO SCH (08:31)
[2018-04-15] MEDS: MULTIVIT/CA CARB/B CMPLX/FA TAB PO SCH (08:31)
[2018-04-15] MEDS: LUBIPROSTONE 24 MCG CAP PO SCH (08:31)
[2018-04-15] MEDS: CHOLECALCIFEROL 2,000 UNIT CAP PO SCH (08:31)
[2018-04-15] MEDS: LEVETIRACETAM 500 MG TAB PO SCH ×2 (08:31→20:42)
[2018-04-15] MEDS: CALCITRIOL 0.25 MCG CAP PO SCH (08:31)
[2018-04-15] MEDS: LABETALOL 200 MG TAB PO SCH ×2 (08:32→20:46)
[2018-04-15] MEDS: NIFEdipine (XL) 30 MG TAB PO SCH (08:32)
--- NOTE | 2018-04-15 08:32 | PN ---
DATE: 04/15/2018 SUBJECTIVE: The patient is stable, no events overnight. OBJECTIVE: VITAL SIGNS: Blood pressure is 160/77, respiration 18, pulse 68, temperature 98.0. HEENT: Head is normocephalic. NECK: Supple. HEART: Regular rate. LUNGS: Show diminished breath sounds at the base. ABDOMEN: Soft, nontender to palpation without rebound or guarding. EXTREMITIES: Negative for clubbing, cyanosis, no edema. DERMATOLOGIC: No rashes. MUSCULOSKELETAL: No joint effusion. NEUROLOGIC: No change in exam. MEDICATIONS: Reviewed. LABORATORY DATA: Has been reviewed. ASSESSMENT AND PLAN: 1. End-stage renal disease. The patient will have hemodialysis today, will dialyze 3 hours 3k bath, calcium 2.5. 2. Mineral bone disorder, monitor calcium and phosphorus levels. Continue vitamin D analogs, phos b inders. 3. Anemia. Continue to monitor hemoglobin and hematocrit levels. Continue Epogen. 4. Volume overload, improving. 5. Liver disease, cirrhosis, history of TRAINING EXECUTIVE, continue current antibiotic regimen. 6. Hypertension. Continue current blood pressure regimen. 7. Gastritis. Continue proton pump inhibitor. 8. Depressive disorder, . Continue Seroquel. Dictated By: SHILO REICH/NTS Conf#: [id number] DID#: [id number] CC: JF KAISER MD;*EndCC*
--- NOTE | 2018-04-15 08:50 | NUR ---
Initial blood glucose before breakfast 69. Follow up glucose following 15 gram of carbs 76. Patient refused to finish glutose 15 gram tube. Educated regarding risks and benefits, continued to refuse. Will continue to monitor blood glucose Q15min until 2 readings >80 mg/dL.
--- NOTE | 2018-04-15 09:58 | NUR ---
PT NOTE [facility] Patient: Abiodun Isidro : 1965 Age/Sex: 52/F Unit#: [id number] Room/Bed: 5539/A User: Bibi Dubon PTA Date: 04/15/18 09:58 Type: PT Technical Record Therapy day number 9 Subjective Current complaint of pain Pain Scale FACES Pain Intensity 8 (0-10) Patient Stated Goal for Pain Relief 0 (0-10) Pain Level Comment sacral and L knee pain Transfer Training Start Time 09:30 Supine to Sit Minimum Assist Transfer Sit to Stand Ability Contact Guard Assist Transfer Training End Time 09:40 Total Transfer Training Time 10 min (8-127) Gait Training Start Time 09:40 Gait Assist Levels Contact Guard Assist Assistive Devices Front Wheel Walker Ambulation Distance 20 feet Additional Gait Comments NBOS, slow tyler, dec step length/stride, forward posture Gait Training End Time 09:58 Total Gait Training Treatment Time 18 min (8-127) Static Sitting Balance Fair Dynamic Sitting Balance Fair Standing Static Balance Fair minus Dynamic Standing Balance Fair minus Additional Balance Assessments Comments FWW Safety Judgement Fair Activity Tolerance Fair Equipment Present A pump Post Treatment Pain Intensity 8 0-10 Total Treament Time 28 min (8-127) Total Minutes 28 Total Units 2 PT Technical Record Comment S: RN Snehal cleared pt for PT. Pt c/o 8/10 sacral and L knee pain and generalized weakness. Agreeable to tx O: Received pt in bed w/ HOB elevated. See above for assist levels. Gait training x 20' and presented with slow tyler, NBOS, decreased step length/stride, forward posture, and 1 knee buckling d/t weakness. Returned pt back to room and requested to be seated at EOB. Call light/phone within reach. Needs met. Left pt w/ OUTREACH ANALYST and RN present in room. Informed RN of pt status and PT activities A: Fair tolerance to tx. Improved gait distance however required mod encouragement to participate in PT activities. 1 knee buckling during gait training d/t generalized weakness P: Continue w/ POC and progress as tolerated
--- NOTE | 2018-04-15 10:17 | CONS ---
Assessment/Plan Assessment/Plan Hospital Course 52 yo female with ESRD and diarrhea left AMA 03/16 and returned with abdominal pain. 1. Abdominal pain -secondary to ascites -Ascites fluid: WBC 1886 -improved 2. Diarrhea -O/P negative. C diff negative -improved 3. Mildly elevated lipase with mid abd pain radiating to back -resolved 4. Mild generalized small and large bowel wall thickening which per CT 03/01 could represent third spacing. 5. Hemorrhoids per pt 6. Mild hepatomegaly 7. Anemia, likely due to chronic disease -Ferritin high: trending up 354 03/21 and 818 (04/11), Iron wnl, TIBC low, B12 wnl, folate wnl, FOB negative 03/28, Retic 04/11 1.7 -no evidence of GI bleeding 8. End stage renal disease on HD 9. Cardiomegaly with mild lower lung pulmonary edema with small left effusion and mild diffuse ascites 10. Anasarca and ascites -s/p pracentesisi 03/15, 03/19, 03/26, 03/30, 04/13 11. Diabetes 12. Hypertension 13. Elevated alk phos secondary to chronic liver disease 14. Mildly dilated biliary system with CBD measuring 10mm -s/p ercp 15. Chronic liver disease 16. Spontaneous bacterial peritonitis -WBC 1856-> 1336 -cultures negative. CT scan of abd from 03/01 IMPRESSION: There is cardiomegaly with mild lower lung pulmonary edema along with a small left effusion with mild diffuse ascites and anasarca and this likely represent third spacing of fluid. Mild generalized small and large bowel wall thickening could represent edema related to third spacing. There is a fecal filled colon without obstruction or grossly visible appendicitis. Atherosclerotic disease is present. No renal or ureteral calculi with no evidence of hydronephrosis. Rounded hypodensity in the left upper pole kidney could represent a hemorrhagic cyst and can be correlated with MRI.. Mild hepatomegaly. Plan: Per ID, Dr Rider, he will hold off on abx for WBC in ascitic fluid of 1368 which is improved from prior WBC. She has been afebrile. Rocephin full course given. cultures all neg. Continue with Amitiza 24 mcg BID, paracentesis prn Continue with diet as tolerated Continue with PPI PRN pain management WBC count and culture of peritoneal fluid with next paracentesis Pt examined and plan of care discussed with Dr. Webb Result Diagram: 04/13/18 0804 04/13/18 0804 Results 24hrs Laboratory Tests Test 04/14/18 12:43 04/14/18 17:10 04/14/18 20:23 04/15/18 08:21 Bedside Glucose 157 114 92 69 L Test 04/15/18 08:43 04/15/18 09:05 04/15/18 09:41 Bedside Glucose 76 88 89 Consultation Date/Type/Reason Admit Date/Time Mar 16, 2018 at 14:01 Initial Consult Date 24 HR Interval Summary Free Text/Dictation Poor appetite. BM yesterday, no evidence of GI bleeding. FOB negative. Continues to c/o abd pain. Afebrile. Exam/Review of Systems Vital Signs Vitals Vital Signs Date Temp Pulse Resp B/P (MAP) Pulse Ox O2 O2 Flow FiO2 Time Delivery Rate 04/15/18 98.0 68 18 160/77 95 07:45 (104) 04/13/18 Nasal 20:00 Cannula Intake and Output 04/14/18 04/14/18 04/15/18 1515:00 23:00 07:00 IntakeIntake Total 450 ml 200 ml BalanceBalance 450 ml 200 ml Exam Constitutional: alert, oriented Eyes: PERRL Gastrointestinal: distended, tender Neurological: nl mental status Medications Medications Current Medications Ondansetron HCl (Zofran Inj) 4 mg Q6H PRN IV NAUSEA AND/OR VOMITING Last administered on 04/03/18at 13:37; Admin Dose 4 MG; Start 03/16/18 at 18:30 Clonidine (Catapres) 0.1 mg Q6H PRN PO ELEVATED BLOOD PRESSURE Last administered on 03/18/18at 02:50; Admin Dose 0.1 MG; Start 03/16/18 at 20:30 Calcitriol (Rocaltrol) 0.25 mcg DAILY PO Last administered on 04/15/18at 08:31; Admin Dose 0.25 MCG; Start 03/17/18 at 09:00 Levetiracetam (Keppra) 500 mg BID PO Last administered on 04/15/18 08:31; Admin Dose 500 MG; Start 03/16/18 at 21:00 Nifedipine (Procardia Xl) 30 mg DAILY PO Last administered on 04/14/18 09:12; Admin Dose 30 MG; Start 03/17/18 at 09:00 Pantoprazole (Protonix Tab) 40 mg AC BREAKFAST PO Last administered on 04/15/18 06:05; Admin Dose 40 MG; Start 03/17/18 at 07:00 Quetiapine Fumarate (Seroquel) 300 mg DAILY PO Last administered on 04/15/18 08:31; Admin Dose 300 MG; Start 03/17/18 at 09:00 Sevelamer Carbonate (Renvela) 1.6 gm WITH MEALS PO Last administered on 04/15/18 08:31; Admin Dose 1.6 GM; Start 03/17/18 at 08:00 Miscellaneous Information 1 ea NOTE XX ; Start 03/16/18 at 21:30 Glucose (Glutose) 15 gm Q15M PRN PO DECREASED GLUCOSE; Start 03/16/18 at 21:30 Glucose (Glutose) 22.5 gm Q15M PRN PO DECREASED GLUCOSE; Start 03/16/18 at 21:30 Dextrose (D50w Syringe) 25 ml Q15M PRN IV DECREASED GLUCOSE; Start 03/16/18 at 21:30 Dextrose (D50w Syringe) 50 ml Q15M PRN IV DECREASED GLUCOSE; Start 03/16/18 at 21:30 Glucagon (Glucagen) 1 mg Q15M PRN IM DECREASED GLUCOSE; Start 03/16/18 at 21:30 Glucose (Glutose) 15 gm Q15M PRN BUCCAL DECREASED GLUCOSE Last administered on 04/15/18 08:46; Admin Dose 15 GM; Start 03/16/18 at 21:30 Labetalol HCl (Normodyne) 200 mg BID PO Last administered on 04/15/18 08:32; Admin Dose 200 MG; Start 03/16/18 at 22:00 Loperamide HCl (Imodium Cap) 2 mg Q6H PRN PO diarrhea Last administered on 03/20/18 01:12; Admin Dose 2 MG; Start 03/17/18 at 03:30 Acetaminophen (Tylenol Tab) 650 mg Q6H PRN PO MILD PAIN(1-3)OR ELEVATED TEMP Last administered on 03/19/18 07:55; Admin Dose 650 MG; Start 03/17/18 at 14:00 Hydralazine HCl (Apresoline) 25 mg Q6H PRN PO ELEVATED SYSTOLIC BP Last administered on 03/19/18at 18:13; Admin Dose 25 MG; Start 03/18/18 at 05:30 Heparin Sodium (Porcine) (Heparin (1000 Units/ml)) 2,300 unit AFTER DIALYSIS CATHETER Last administered on 04/12/18 00:47; Admin Dose 2,300 UNIT; Start 03/18/18 at 22:00 Collagenase (Santyl) 1 applic PRN PRN TOP WHEN SOILED Last administered on 03/23/18 21:45; Admin Dose 1 APPLIC; Start 03/19/18 at 19:30 Hydralazine HCl (Apresoline) 10 mg Q6H PRN IV elevated BP Last administered on 04/12/18 08:45; Admin Dose 10 MG; Start 03/19/18 at 19:30 Multivit/Ca Carb/ B Cmplx/FA/Prenat (Alena-Martin) 1 tab DAILY PO Last administered on 04/15/18 08:31; Admin Dose 1 TAB; Start 03/24/18 at 09:00 Quetiapine Fumarate (Seroquel) 300 mg QHS PO Last administered on 04/14/18 20:25; Admin Dose 300 MG; Start 03/27/18 at 21:00 Citalopram Hydrobromide (Celexa) 20 mg DAILY PO Last administered on 04/15/18 08:31; Admin Dose 20 MG; Start 03/27/18 at 10:30 Diagnostic Test (Pha) (Accu-Chek) 1 ea 02 XX ; Start 03/30/18 at 02:00 Cholecalciferol (Vitamin D) 2,000 unit DAILY PO Last administered on 04/15/18 08:31; Admin Dose 2,000 UNIT; Start 03/30/18 at 09:30 Insulin Aspart (Novolog Insulin Pen) (Adult SC Insulin - Moder... WITH MEALS BEDTIME SC ; Start 03/30/18 at 12:00 Morphine Sulfate (morphine) 10 mg Q4H PRN PO SEVERE PAIN LEVEL 7-10 Last administered on 04/14/18 09:14; Admin Dose 10 MG; Start 04/03/18 at 13:30 Diphenhydramine HCl (Benadryl) 50 mg Q6H PRN IV itching Last administered on 1/24/19at 08:28; Admin Dose 50 MG; Start 04/04/18 at 06:00 Buspirone HCl (Buspar) 10 mg BID PO Last administered on 04/15/18at 08:31; Admin Dose 10 MG; Start 04/08/18 at 09:00 Lubiprostone (Amitiza) 24 mcg BID PO Last administered on 04/15/18at 08:31; Admin Dose 24 MCG; Start 04/11/18 at 21:00 Epoetin [place] (Epogen (Esrd)) 10,000 units MoWeFr@17 SC Last administered on 04/14/18at 17:16; Admin Dose 10,000 UNITS; Start 04/14/18 at 17:00 Date/Time of Note Date/Time of Note DATE: 04/15/18 TIME: 10:13 ROBERT GOODRICH Apr 15, 2018 10:17
--- NOTE | 2018-04-15 10:28 | NUR ---
Updates: Pt still has the bed at [facility] Room # 10B as per Fina NOBLES of [facility] ext [phone]. Spoke with Madyson bello/red systems planner ext [phone] that she is still working on the Outpatient paracentesis and Outpatient HD placement for the patient. Just waiting for approvals and the case has been reviewed. Patient is not medically cleared at this time. Will continue to follow the case. GIULIANO ext [phone] Addendum: 04/15/18 at 1500 by LEONARD BARTHOLOMEW RN CM Update: Received a call from Fina NOBLES of [facility] that she wanted the latest Coags, Hep Panel and Hep B Surface Antibody results. Snehal the bedside RN was notified. Pls fax the results to [facility] with the HD Flow sheets once labs results are in.
[2018-04-15] MEDS: HEPARIN 1000 UNITS/ML 10 ML INJ CATHETER SCH (15:09)
--- NOTE | 2018-04-15 15:25 | CONS ---
Assessment/Plan Assessment/Plan Hospital Course (Demo Recall) 1300 Patient is awake, in hemodialysis, looks comfortable, no fevers Indwelling: Left chest permacath Physical examination: Fragile chronically ill-appearing middle-aged woman in no distress. Head atraumatic normocephalic. Neck is supple chest rise symmetrical breath sounds diminished bases heart S1-S2 abdomen soft bowel sounds present extremities without cyanosis Assessment: 1. Liver cirrhosis 2. Recurrent ascites status post paracentesis, ascitic fluid cultures negative 3. End-stage renal disease 4. Anemia 5. Diabetes and hypertension Plan: Patient completed 2 weeks antibiotics, ascitic fluid wbc slightly decreased on April 13 despite being on IV Rocephin. We will will start her on IV vancomycin to be given post hemodialysis and oral ciprofloxacin for another 7-10 days, pending discharge back to [facility] Consultation Date/Type/Reason Admit Date/Time Mar 16, 2018 at 14:01 Initial Consult Date Type of Consult id Date/Time of Note DATE: 04/15/18 TIME: 15:24 Exam/Review of Systems Exam Vitals Vital Signs Date Temp Pulse Resp B/P (MAP) Pulse Ox O2 O2 Flow FiO2 Time Delivery Rate 04/15/18 98.4 97 18 143/87 94 Room Air 14:00 (105) Intake and Output 04/14/18 04/14/18 04/15/18 1515:00 23:00 07:00 IntakeIntake Total 450 ml 200 ml BalanceBalance 450 ml 200 ml Results Result Diagram: 04/13/18 0804 04/13/18 0804 Results 24hrs Laboratory Tests Test 04/14/18 17:10 04/14/18 20:23 04/15/18 08:21 04/15/18 08:43 Bedside Glucose 114 92 69 L 76 Test 04/15/18 09:05 04/15/18 09:41 04/15/18 12:26 Bedside Glucose 88 89 97 GERALDINE BOATENG NP Apr 15, 2018 15:24
[2018-04-15] MEDS ORDERED: VANCOMYCIN IV PER PHARMACY XX SCH (15:30)
--- NOTE | 2018-04-15 16:31 | NUR ---
VANCO PER RX: 52F 5FT 6 IN. 55 KG SCR 3.74 WBC 9 Problem List: Liver cirrhosis, Recurrent ascites status post paracentesis, ascitic fluid cultures negative, ESRD-HD, DM, HTN Current ABXs: KIRAN ELIZABETH Comments/Plan: VANCO 1 GM IVPB X 1 TODAY. PHARMACY WILL CHECK RANDOM LEVEL IN 2 DAYS.
[2018-04-15] MEDS ORDERED: VANCOMYCIN 1 GM 250 ML IVPB SCH (17:30)
--- NOTE | 2018-04-15 18:25 | PN ---
Date/Time of Note Date/Time of Note DATE: 04/15/18 TIME: 18:20 Assessment/Plan VTE Prophylaxis Risk score (from Ns)>0 risk: 4 SCD applied (from Ns): Yes Pharmacological prophylaxis: NA/contraindicated Pharm contraindication: liver dx Lines/Catheters IV Catheter [facility]from [facility]): Permacath Urinary Cath still in place: No Assessment/Plan Hospital Course Pt had extensive diarrhea x5, stool for C. difficile was sent, stool for C. difficile is negative patient could be discharged to [facility] on vancomycin IV and Cipro for 7 more days per ID recommendation, will check BMP and CBC tomorrow. Patient underwent hemodialysis today. Assessment/Plan -SBP, s/p treatment with Rocephin, cultures negative including afb, wbc 1368, 60% pmn, currently on IV Vanco and Cipro. Dr Goel is following in ID consultat ion. -Abdominal pain status post ERCP with sphincterectomy, removal of stone and stenting by Dr. Webb. -Chronic liver disease, likely cirrhotic. -Anasarca and ascites, s/p paracentesis on 03/15, 03/19, 03/26, 03/30,04/13. -Hemodialysis dependent end-stage renal disease. Continue hemodialysis per ne phrology. Dr. Bledsoe is following in nephrology consultation -Hypertension, continue Procardia and hydralazine as needed. -Diabetes, NovoLog per mild algorithm sliding scale -Seizure disorder, continue Keppra -Gastritis, continue PPI -Anemia of chronic disease, continue Epogen -Depressive disorder with psychosis. Continue Seroquel. Further recommendations based on clinical course. Plan of care discussed with Dr. Smith. Result Diagram: 04/13/18 0804 04/13/18 0804 Results 24hrs Laboratory Tests Test 04/14/18 20:23 04/15/18 08:21 04/15/18 08:43 04/15/18 09:05 Bedside Glucose 92 69 L 76 88 Test 04/15/18 09:41 04/15/18 12:26 04/15/18 17:29 Bedside Glucose 89 97 84 Exam/Review of Systems Exam Vitals Constitutional: alert, oriented Respiratory: clear to auscultation Cardiovascular: rnl pulse Gastrointestinal: soft, distended Musculoskeletal: nl extremities to inspection Extremities: normal pulses Additional Comments Left chest tunneled hemodialysis catheter Vital Signs Date Temp Pulse Resp B/P (MAP) Pulse Ox O2 O2 Flow FiO2 Time Delivery Rate 04/15/18 71 16 122/77 95 Room Air 15:31 (92) 04/15/18 98.4 14:00 Intake and Output 04/14/18 04/14/18 04/15/18 1414:59 22:59 06:59 IntakeIntake Total 450 ml 200 ml BalanceBalance 450 ml 200 ml Results Results 24hrs Laboratory Tests Test 04/14/18 20:23 04/15/18 08:21 04/15/18 08:43 04/15/18 09:05 Bedside Glucose 92 69 L 76 88 Test 04/15/18 09:41 04/15/18 12:26 04/15/18 17:29 Bedside Glucose 89 97 84 BLAKE MORALES Apr 15, 2018 18:25
--- NOTE | 2018-04-15 19:23 | NUR ---
EOSS Patient in no acute distress during shift. Due medications given. No insulin coverage given today r/t low blood glucose levels, BRONC BREAKER Lauren aware and hypoglycemia protocol utilized. Patient had hemodialysis today. Patient peripheral IV painful, removed. Placement endorsed to oncoming shift. Patient on isolation for R/O C Diff for 5 episodes of watery stool within 2.5 hours, sample sent. Hourly rounds done, call light in reach, all needs attended to. Plan of care endorsed. Addendum: 04/15/18 at 1925 by LEANNA SOFIA RN wound care performed
[2018-04-15] MEDS: morphine LIQ (10 MG/5 ML) CUP PO PRN (19:36)
[2018-04-16 01:42] VITALS: BP 183/91; PULSE 74; RESP 18
[2018-04-16] MEDS: ACCU-CHEK XX SCH (02:00)
[2018-04-16] MEDS ORDERED: CIPROFLOXACIN 250 MG TAB PO SCH (06:00)
--- NOTE | 2018-04-16 06:09 | NUR ---
EOSS: Pt. rested comfortably overnight. No acute changes. A new midline was placed last night by ER nurse. It is flushing but has no blood return. All due meds given. Will endorse care to oncoming nurse
[2018-04-16] MEDS: PANTOPRAZOLE (EC) 40 MG TAB PO SCH (06:34)
--- NOTE | 2018-04-16 07:44 | CONS ---
Assessment/Plan Assessment/Plan Hospital Course (Demo Recall) 52 yo female with ESRD and diarrhea left AMA 03/16 and returned with abdominal pain. 1. Abdominal pain -secondary to ascites -Ascites fluid: WBC 1886 -improved 2. Diarrhea -O/P negative. C diff negative -intermittent diarrhea 3. Mildly elevated lipase with mid abd pain radiating to back -resolved 4. Mild generalized small and large bowel wall thickening which per CT 03/01 could represent third spacing. 5. Hemorrhoids per pt 6. Mild hepatomegaly 7. Anemia, likely due to chronic disease -Ferritin high: trending up 354 03/21 and 818 (04/11), Iron wnl, TIBC low, B12 wnl, folate wnl, FOB negative 03/28, Retic 04/11 1.7 -no evidence of GI bleeding 8. End stage renal disease on HD 9. Cardiomegaly with mild lower lung pulmonary edema with small left effusion and mild diffuse ascites 10. Anasarca and ascites -s/p pracentesisi 03/15, 03/19, 03/26, 03/30, 04/13 11. Diabetes 12. Hypertension 13. Elevated alk phos secondary to chronic liver disease 14. Mildly dilated biliary system with CBD measuring 10mm -s/p ercp 15. Chronic liver disease 16. Spontaneous bacterial peritonitis -WBC 1856-> 1336 -cultures negative. CT scan of abd from 03/01 IMPRESSION: There is cardiomegaly with mild lower lung pulmonary edema along with a small left effusion with mild diffuse ascites and anasarca and this likely represent third spacing of fluid. Mild generalized small and large bowel wall thickening could represent edema related to third spacing. There is a fecal filled colon without obstruction or grossly visible appendicitis. Atherosclerotic disease is present. No renal or ureteral calculi with no evidence of hydronephrosis. Rounded hypodensity in the left upper pole kidney could represent a hemorrhagic cyst and can be correlated with MRI.. Mild hepatomegaly. Plan: Per ID, Dr Rider, he will hold off on abx for WBC in ascitic fluid of 1368 which is improved from prior WBC. She has been afebrile. Rocephin full course given. cultures all neg. Amitiza on hold for mx bm, C diff sent. Add stool cultures paracentesis prn Continue with diet as tolerated Continue with PPI PRN pain management WBC count and culture of peritoneal fluid with next paracentesis Pt examined and plan of care discussed with Dr. Webb Consultation Date/Type/Reason Admit Date/Time Mar 16, 2018 at 14:01 Initial Consult Date Date/Time of Note DATE: 04/16/18 TIME: 07:42 24 HR Interval Summary Free Text/Dictation Multiple soft bm yesterday. Amitiza was held and C diff sent. Pt states her abdomen pain feels better. No nausea. Pt looks dusky but states she feels okay. Hgb is stable. No evidence of GI bleeding. Afebrile. WBC wnl. Exam/Review of Systems Exam Vitals Vital Signs Date Temp Pulse Resp B/P (MAP) Pulse Ox O2 O2 Flow FiO2 Time Delivery Rate 04/16/18 97.9 74 18 183/91 96 01:42 (121) 04/15/18 Room Air 15:31 Intake and Output 04/15/18 04/15/18 04/16/18 1515:00 23:00 07:00 IntakeIntake Total 720 ml 240 ml OutputOutput Total 1000 ml BalanceBalance -280 ml 240 ml Constitutional: alert, oriented Psych: no complaints Head: normocephalic Eyes: PERRL, other (sclera icteric) Gastrointestinal: soft, distended, tender Musculoskeletal: nl gait and stance, muscle weakness Extremities: normal pulses Neurological: nl mental status Results Result Diagram: 04/16/18 0613 04/16/18 0613 Results 24hrs Laboratory Tests Test 04/15/18 08:21 04/15/18 08:43 04/15/18 09:05 04/15/18 09:41 Bedside Glucose 69 L 76 88 89 Test 04/15/18 12:26 04/15/18 17:29 04/15/18 20:43 04/16/18 06:13 Bedside Glucose 97 84 131 White Blood Count 8.3 Red Blood Count 3.48 L Hemoglobin 8.6 L Hematocrit 27.2 L Mean Corpuscular 78.2 L Volume Mean Corpuscular 24.7 L Hemoglobin Mean Corpuscular 31.6 L Hemoglobin Concent Red Cell 18.1 H Distribution Width Platelet Count 219 Mean Platelet Volume 9.5 Immature 0.200 Granulocytes % Neutrophils % 54.4 Lymphocytes % 21.6 Monocytes % 10.2 Eosinophils % 12.4 H Basophils % 1.2 Nucleated Red Blood 0.0 Cells % Immature 0.020 Granulocytes # Neutrophils # 4.5 Lymphocytes # 1.8 Monocytes # 0.9 Eosinophils # 1.0 H Basophils # 0.1 Nucleated Red Blood 0.0 Cells # Prothrombin Time 15.2 H Prothrombin Time 1.2 Ratio INR International 1.19 Normalized Ratio Activated 50.3 H Partial Thromboplast Time Sodium Level 137 Potassium Level 4.7 Chloride Level 101 Carbon Dioxide Level 26 Anion Gap 10 Blood Urea Nitrogen 24 H Creatinine 3.62 H Est Glomerular 16 L Filtrat Rate mL/min Glucose Level 90 Calcium Level 8.7 Hepatitis B Surface Pending Antigen Hepatitis B Core Pending Total Antibody Hepatitis C Antibody Pending ROBERT GOODRICH Apr 16, 2018 07:44
[2018-04-16 08:00] VITALS: BP 136/91; PULSE 82; RESP 18
[2018-04-16] MEDS: Insulin NOVOLOG SS MODERATE Algorithm (SS with meals and bedtime) SC SCH ×4 (08:00→20:36)
[2018-04-16] MEDS: SEVELAMER CARBONATE 0.8 GM PKT PO SCH ×3 (08:11→17:43)
[2018-04-16] MEDS: DIPHENHYDRAMINE 50 MG INJ IV PRN (08:11)
[2018-04-16] MEDS: morphine LIQ (10 MG/5 ML) CUP PO PRN ×2 (08:11→20:36)
[2018-04-16] MEDS: QUETIAPINE 100 MG TAB PO SCH ×2 (08:12→20:35)
[2018-04-16] MEDS: CITALOPRAM 20 MG TAB PO SCH (08:12)
[2018-04-16] MEDS: BUSPIRONE 5 MG TAB PO SCH ×2 (08:12→20:35)
[2018-04-16] MEDS: LEVETIRACETAM 500 MG TAB PO SCH ×2 (08:12→20:35)
[2018-04-16] MEDS: CHOLECALCIFEROL 2,000 UNIT CAP PO SCH (08:12)
[2018-04-16] MEDS: MULTIVIT/CA CARB/B CMPLX/FA TAB PO SCH (08:12)
[2018-04-16] MEDS: NIFEdipine (XL) 30 MG TAB PO SCH (08:13)
[2018-04-16] MEDS: LABETALOL 200 MG TAB PO SCH ×2 (08:13→20:35)
--- NOTE | 2018-04-16 08:18 | PN ---
DATE: 04/16/2018 SUBJECTIVE: The patient is stable. Patient is having loose stools. The patient had hemodialysis ye sterday and tolerated well. No other events noted. OBJECTIVE: VITAL SIGNS: Blood pressure is 183/91, respiration 18, pulse 74, temperature 97.9. HEENT: Head is normocephalic. NECK: Supple. HEART: Regular rate. LUNGS: Show diminished breath sounds at the base. ABDOMEN: Soft, nontender to palpation. No rebound or guarding. EXTREMITIES: Negative for clubbing, cyanosis, no edema. DERMATOLOGIC: No rashes. MUSCULOSKELETAL: No joint effusion. NEUROLOGIC: No change in exam. OUTPATIENT MEDICATIONS: Reviewed. LABORATORY DATA: Shows white count 8.3, hemoglobin 8.6, platelet count 219. Sodium 137, potassium 4 .7, BUN 24, creatinine 3.62. ASSESSMENT AND PLAN: 1. End-stage renal disease. The patient had hemodialysis yesterday, tolerated procedure well. Plan for dialysis again tomorrow. 2. Mineral bone disorder. Monitor calcium and phosphorus levels. Continue vitamin D analogs, phos binders. 3. Anemia. Monitor hemoglobin and hematocrit levels. Continue Epogen. 4. Volume overload, improving. Continue ultrafiltration dialysis. 5. Cirrhosis with spontaneous bacterial peritonitis. The patient has completed antibiotic course. 6. Diarrhea. The patient is being ruled out for Clostridium difficile. 7. Hypertension. Continue current blood pressure regimen. Continue ultrafiltration dialysis. 8. Gastritis, continue proton pump inhibitor. 9. Depressive disorder. Continue Seroquel. Dictated By: SHILO REICH/ANTONINO Conf#: [id number] DID#: [id number]
[2018-04-16] MEDS: CALCITRIOL 0.25 MCG CAP PO SCH (08:29)
--- NOTE | 2018-04-16 12:03 | CONS ---
Assessment/Plan Assessment/Plan Hospital Course (Demo Recall) No acute events. All noted patient looks comfortable, no fevers overnight Antimicrobials: IV vancomycin, oral Cipro Indwelling: Left chest permacath Physical examination: Fragile chronically ill-appearing middle-aged woman in no distress. Head atraumatic normocephalic. Neck is supple chest rise symmetrical breath sounds diminished bases heart S1-S2 abdomen soft bowel sounds present ext remities without cyanosis Assessment: 1. Liver cirrhosis 2. Recurrent ascites status post paracentesis, ascitic fluid cultures negative however white blood cell count still elevated 3. End-stage renal disease 4. Anemia 5. Diabetes and hypertension 6. Ongoing diarrhea, C. difficile on March 17 was negative Plan: Stable, completed 2 weeks Rocephin, ascitic fluid wbc still elevated. Venkat almodovar present care, continue on current antibiotics for 10 more days, repeat stool for C. difficile, follow GI and nephrology recommendations, pending discharge arrangements Consultation Date/Type/Reason Admit Date/Time Mar 16, 2018 at 14:01 Initial Consult Date Type of Consult id Date/Time of Note DATE: 04/16/18 TIME: 12:01 Exam/Review of Systems Exam Vitals Vital Signs Date Temp Pulse Resp B/P (MAP) Pulse Ox O2 O2 Flow FiO2 Time Delivery Rate 04/16/18 98.0 82 18 136/91 100 Room Air 08:00 (106) Intake and Output 04/15/18 04/15/18 04/16/18 1515:00 23:00 07:00 IntakeIntake Total 720 ml 240 ml OutputOutput Total 1000 ml BalanceBalance -280 ml 240 ml Results Result Diagram: 04/16/18 0613 04/16/18 0613 Results 24hrs Laboratory Tests Test 04/15/18 12:26 04/15/18 17:29 04/15/18 20:43 04/16/18 06:13 Bedside Glucose 97 84 131 White Blood Count 8.3 Red Blood Count 3.48 L Hemoglobin 8.6 L Hematocrit 27.2 L Mean Corpuscular 78.2 L Volume Mean Corpuscular 24.7 L Hemoglobin Mean Corpuscular 31.6 L Hemoglobin Concent Red Cell 18.1 H Distribution Width Platelet Count 219 Mean Platelet Volume 9.5 Immature 0.200 Granulocytes % Neutrophils % 54.4 Lymphocytes % 21.6 Monocytes % 10.2 Eosinophils % 12.4 H Basophils % 1.2 Nucleated Red Blood 0.0 Cells % Immature 0.020 Granulocytes # Neutrophils # 4.5 Lymphocytes # 1.8 Monocytes # 0.9 Eosinophils # 1.0 H Basophils # 0.1 Nucleated Red Blood 0.0 Cells # Prothrombin Time 15.2 H Prothrombin Time 1.2 Ratio INR International 1.19 Normalized Ratio Activated 50.3 H Partial Thromboplast Time Sodium Level 137 Potassium Level 4.7 Chloride Level 101 Carbon Dioxide Level 26 Anion Gap 10 Blood Urea Nitrogen 24 H Creatinine 3.62 H Est Glomerular 16 L Filtrat Rate mL/min Glucose Level 90 Calcium Level 8.7 Hepatitis B Surface NEGATIVE Antigen Hepatitis B Core NEGATIVE Total Antibody Hepatitis C Antibody NEGATIVE Test 04/16/18 08:08 Bedside Glucose 101 GERALDINE BOATENG NP Apr 16, 2018 12:03
--- NOTE | 2018-04-16 13:55 | NUR ---
Paged Dr Goel's office regarding positive C Diff sample. Awaiting CB. Contact spore isolation precautions remain in effect.
[2018-04-16 14:00] VITALS: BP 132/62; PULSE 82; RESP 18
--- NOTE | 2018-04-16 14:44 | NUR ---
CM NOTES F/U RE: Outpatient paracentesis and Outpatient HD placement, Called [facility] [phone] left VM to Madyson NOBLES
--- NOTE | 2018-04-16 14:46 | NUR ---
GIULIANO NOTES F/U RE: Outpatient paracentesis and Out[facility] HD placement, [phone] left to Madyson NOBLES Called [facility] , holding bed for patient. Birgit x [phone]
--- NOTE | 2018-04-16 15:14 | NUR ---
CM NOTES [facility] # [id number] CHAIR TIME MWF@ 4:45 AM 2 OUTPATIENT .PARACENTHESIS @ [facility] # [phone] WALK IN [facility] AND LATEST PT AND PTT FAXED TO [facility] # [id number] ALAN X [phone]
--- NOTE | 2018-04-16 15:31 | NUR ---
PT NOTE [facility] Patient: Abiodun Isidro : 1965 Age/Sex: 52/F Unit#: [id number] Room/Bed: 5539/A User: Bibi Dubon PTA Date: 04/16/18 15:31 Type: PT Technical Record Therapy day number 10 Subjective Current complaint of pain Pain Scale FACES Pain Intensity 7 (0-10) Patient Stated Goal for Pain Relief 0 (0-10) Pain Level Comment sacral area Transfer Training Start Time 14:22 Supine to Sit Contact Guard Assist Transfer Sit to Stand Ability Contact Guard Assist Bed Mobility Sit to Supine Contact Guard Assist Transfer Training End Time 14:37 Total Transfer Training Time 15 min (8-127) Gait Training Start Time 14:37 Gait Assist Levels Contact Guard Assist Assistive Devices Front Wheel Walker Ambulation Distance 12 feet Additional Gait Comments 12'x2. 1 sitting rest break. NBOS, slow tyler, reciprocal pattern Gait Training End Time 15:00 Total Gait Training Treatment Time 23 min (8-127) Static Sitting Balance Fair plus Dynamic Sitting Balance Fair plus Standing Static Balance Fair Dynamic Standing Balance Fair minus Additional Balance Assessments Comments FWW Safety Judgement Fair Activity Tolerance Fair Equipment Present A pump Post Treatment Pain Intensity 7 0-10 Total Treament Time 38 min (8-127) Total Minutes 38 Total Units 3 PT Technical Record Comment S: RN Snehal cleared pt for PT. Pt c/o 7/10 sacral pain, agreeable to tx O: Received pt in bed w/ HOB elevated. See above for assist levels. Gait training x 12' x2 w/ 1 sitting rest break d/t fatigue. Presented with slow tyler, NBOS, reciprocal pattern. Returned pt back to room/bed. Positioned pt to comfort in semifowler. Call light/phone within reach. Bed alarm on. Needs met. Informed RN of pt status and PT activities A: Fair tolerance to tx. Limited due to pain. Pt on contact isolation for cdiff, therefore gait distance limited P: Continue w/ POC and progress as tolerated
--- NOTE | 2018-04-16 15:42 | NUR ---
Dialysis Confirmation for 04/17 [id number]
--- NOTE | 2018-04-16 16:28 | NUR ---
TRANSPORTATION LOGISTIC CARE/ [facility] # [phone] ALAN [id number] Addendum: 04/16/18 at 1634 by ALAN LI CM GIULIANO [facility] [id number] [address] [id number] ROOM ASSIGMENT: 30B
[2018-04-16] MEDS: VANCOMYCIN HCL 250 MG/5ML POSYG PO SCH (17:43)
[2018-04-16] MEDS: EPOETIN 10000 UNITS/1 ML INJ (ESRD) SC SCH (17:43)
--- NOTE | 2018-04-16 18:10 | PDOCDIS ---
Discharge Instructions CONDITION [id number] Patient Condition: [id number] Stable HOME CARE INSTRUCTIONS: [id number] Special Diet: Xjlcy9o Renal ACTIVITY: [id number] Activity Restrictions: [id number] Slowly Increase Activity Rest between Activity Avoid heavy lifting Do not Drive Do not operate Machinery Do not operate Power Tool Avoid Heavy Housework [id number] Bathing Restrictions: [id number] Sponge Bath FOLLOW UP/APPOINTMENTS Follow-up Plan - FU w PMD x 1 week FU w cafe assistant as recommended Ca11 911 or got to the nearest hospital if symptoms get worse- patient verbalized understanding dc instructions Plan albert Smith/staff/patient CECILE LIVE Apr 16, 2018 18:10
--- NOTE | 2018-04-16 18:11 | DS ---
Date/Time of Note Date/Time of Note DATE: 04/16/18 TIME: 18:11 Discharge Summary Admission/Discharge Info Admit Date/Time Mar 16, 2018 at 14:01 Discharge Date/Time Patient Condition: Stable Home Meds Active Scripts Diphenhydramine Hcl* (Benadryl*) 25 Mg Cap, 25 MG PO Q6H PRN for ITCHING, #30 CAP Prov:SANDRAJOBKANEBLAKE 12/10/17 Labetalol Hcl* (Labetalol Hcl*) 100 Mg Tablet, 200 MG PO BID for 30 Days, TAB Prov:SANDRAJOBBLAKE 12/10/17 Nifedipine (Procardia Xl) 30 Mg Tab.er.24, 30 MG PO DAILY for 30 Days, TAB Prov:SANDRAJOBBLAKE 12/10/17 Sevelamer Carbonate* (Renvela*) 800 Mg Tablet, 1600 MG PO WITH MEALS for 30 Days, TAB Prov:KAILABLAKE 12/10/17 Reported Medications Calcitriol* (Calcitriol*) 0.25 Mcg Capsule, 0.25 MG PO DAILY for 30 Days TAKE ONE CAPSULE BY MOUTH EVERYDAY 03/01/18 Quetiapine Fumarate* (Seroquel*) 300 Mg Tablet, 300 MG PO DAILY, TAB 12/07/17 Pantoprazole* (Protonix*) 40 Mg Tablet., 40 MG PO AC BREAKFAST, TAB 12/07/17 Furosemide* (Furosemide*) 40 Mg Tablet, 40 MG PO BID, TAB 12/07/17 Levetiracetam* (Keppra*) 500 Mg Tablet, 500 MG PO BID, TAB 12/07/17 Follow-up Plan - FU w PMD x 1 week FU w subject scientific research as recommended Ca11 911 or got to the nearest hospital if symptoms get worse- patient verbalized understanding dc instructions Plan albert Smith/staff/patient Primary Care Provider Not On Staff Doctor Pending Labs Laboratory Tests Test 04/15/18 20:43 04/16/18 06:13 04/16/18 08:08 04/16/18 12:44 Bedside 131 101 87 Glucose mg/dL (70-220) mg/dL (70-220) mg/dL (70-220) White Blood 8.3 Count 10^3/ul (4.8-1 0.8) Red Blood 3.48 Count 10^6/ul (4.20- 5.40) Hemoglobin 8.6 g/dl (12.0-16. 0) Hematocrit 27.2 % (37.0-47.0) Mean 78.2 Corpuscular fl (82.0-101.0 Volume ) Mean 24.7 Corpuscular pg (29.0-33.0) Hemoglobin Mean 31.6 Corpuscular g/dl (32.0-37. Hemoglobin Conc 0) ent Red Cell 18.1 Distribution % (11.5-14.5) Width Platelet Count 219 10^3/UL (140-4 15) Mean Platelet 9.5 Volume fl (7.4-10.4) Immature 0.200 Granulocytes % % (0.001-0.429 ) Neutrophils % 54.4 % (39.0-77.0) Lymphocytes % 21.6 % (15.0-51.0) Monocytes % 10.2 % (0.0-11.0) Eosinophils % 12.4 % (0.0-7.0) Basophils % 1.2 % (0.0-2.0) Nucleated Red 0.0 Blood Cells % /100WBC (0.0-0 .0) Immature 0.020 Granulocytes # 10^3/ul (0.0-0 .031) Neutrophils # 4.5 10^3/ul (1.6-7 .5) Lymphocytes # 1.8 10^3/ul (0.8-2 .9) Monocytes # 0.9 10^3/ul (0.3-0 .9) Eosinophils # 1.0 10^3/ul (0.0-0 .5) Basophils # 0.1 10^3/ul (0.0-0 .1) Nucleated Red 0.0 Blood Cells # 10^3/ul (0.0-0 .0) Prothrombin 15.2 Time Sec (11.9-14.9 ) Prothrombin 1.2 Time Ratio INR 1.19 International Normalized Rati o Activated 50.3 Partial Thrombo Sec (23.0-35.0 plast Time ) Sodium Level 137 mmol/L (135-14 4) Potassium 4.7 Level mmol/L (3.5-5. 1) Chloride Level 101 mmol/L (97-110 ) Carbon Dioxide 26 Level mmol/L (21-31) Anion Gap 10 (5-13) Blood Urea 24 Nitrogen mg/dl (7-20) Creatinine 3.62 mg/dl (0.44-1. 00) Est Glomerular 16 Filtrat mL/min (>60) Rate mL/min Glucose Level 90 mg/dl (70-220) Calcium Level 8.7 mg/dl (8.4-10. 2) Hepatitis B NEGATIVE (NEGA Surface TIVE) Antigen Hepatitis B NEGATIVE (NEGA Core TIVE) Total Antibody Hepatitis C NEGATIVE (NEGA Antibody TIVE) Test 04/16/18 17:37 Bedside 84 Glucose mg/dL (70-220) CECILE LIVE Apr 16, 2018 18:11
--- NOTE | 2018-04-16 18:46 | NUR ---
Report given to Odalys LIZ at [facility], patient being placed in 32 B.
--- NOTE | 2018-04-16 19:33 | NUR ---
EOSS Patient in no acute distress during shift. Due medications given. Patient stool sample came back + for C Diff today, started on PO Vanco. Patient scheduled be D/C'd to [facility] this evening. Hourly rounds done, call light in reach, all needs attended to. Plan of care endorsed.
[2018-04-16 19:55] VITALS: BP 145/75; PULSE 70; RESP 20
--- NOTE | 2018-04-16 21:20 | NUR ---
2119: Followed up with the [facility] #[phone] regarding this patient's reservation. According to Marge (staff),ambulance went to the ER and EMT documented "no call, no show" for this patient.This RN asked her, "why will they go to ER, the patient is bedbound?" According to her,the one who arranged the transport, relayed patient is ambulatory with assist and with that there is no much questions asked. Again, asked her if the room number is provided, she said "yes". Needed informations was provided for this patient and she said she will call back if she can find a transport for this route. [facility] c/o Odalys was informed of what happen and let her know that she will be posted. Nava, Nursing pulp plant supervisor was informed of what happened. Parker [phone] ER CM, was also informed. He suggested just wait for transport to call us back. 2209 this RN called the Nursing facility,talked to Odalys and according to her, they cannot admit the patient after 11pm since there will be no RN on the floor. Parker NOBLES was also informed. Nava was notified, stated call the transport, let them know and inform the doctor. As per Marge, they cannot provide router for tonight. the arrangement will be for tomorrow confirmation # [id number] pickle water pump operator time at 8am. odalys from [facility] was made aware. was notified,too without further order.
--- NOTE | 2018-04-16 22:28 | NUR ---
CALLED [facility] SPOKE WITH CECILLE,PATIENT CAN NOT BE DISCHARGED TO FACILITY TONIGHT DUE TO TRANSPORTATION PROBLEM AND FACILITY NOT ABLE TO ACCEPT PATIENT AFTER 11:00PM.MADE FACILITY AWARE PATIENT WILL BE TRANSPORTED IN THE MORNING AT 0800.
[2018-04-17] MEDS: VANCOMYCIN HCL 250 MG/5ML POSYG PO SCH ×2 (00:03→06:58)
[2018-04-17 01:51] VITALS: BP 134/71; PULSE 74; RESP 20
[2018-04-17] MEDS: ACCU-CHEK XX SCH (02:00)
--- NOTE | 2018-04-17 06:14 | NUR ---
SHIFT NOTES; PATIENT VITAL SIGNS STABLE. MEDICATED WITH MORPHINE FOR PAIN. PATIENT FOR DISCHARGE TO [facility] THIS AM.NO S/S HYPO/HYPERGLYCEMIA NOTED.ASSISTED TO THE BEDSIDE COMMODE.CONTACT SPORE ISOLATION OBSERVED.
--- NOTE | 2018-04-17 06:38 | NUR ---
CALLED [facility] REGARDING SCHEDULED HEMODIALYSIS FOR THIS PATIENT TODAY. [facility] AWARE SPOKE TO STAN,THAT PATIENT WILL BE PICKED UP FOR DISCHARGE TO [facility] AT 0945AM.
[2018-04-17] MEDS: PANTOPRAZOLE (EC) 40 MG TAB PO SCH (06:58)
[2018-04-17] MEDS: Insulin NOVOLOG SS MODERATE Algorithm (SS with meals and bedtime) SC SCH (07:49)
[2018-04-17 08:00] VITALS: BP 182/86; PULSE 70; RESP 18
[2018-04-17] MEDS: SEVELAMER CARBONATE 0.8 GM PKT PO SCH (08:08)
[2018-04-17] MEDS: BUSPIRONE 5 MG TAB PO SCH (08:09)
[2018-04-17] MEDS: morphine LIQ (10 MG/5 ML) CUP PO PRN (08:09)
[2018-04-17] MEDS: LEVETIRACETAM 500 MG TAB PO SCH (08:10)
[2018-04-17] MEDS: CHOLECALCIFEROL 2,000 UNIT CAP PO SCH (08:10)
[2018-04-17] MEDS: CITALOPRAM 20 MG TAB PO SCH (08:10)
[2018-04-17] MEDS: CALCITRIOL 0.25 MCG CAP PO SCH (08:10)
[2018-04-17] MEDS: LABETALOL 200 MG TAB PO SCH (08:10)
[2018-04-17] MEDS: QUETIAPINE 100 MG TAB PO SCH (08:10)
[2018-04-17] MEDS: MULTIVIT/CA CARB/B CMPLX/FA TAB PO SCH (08:10)
[2018-04-17] MEDS: NIFEdipine (XL) 30 MG TAB PO SCH (08:13)
--- NOTE | 2018-04-17 08:22 | PN ---
DATE: 04/17/2018 SUBJECTIVE: The patient is stable. No events noted overnight. OBJECTIVE: VITAL SIGNS: Blood pressure is 130/71, respirations 20, pulse 74, temperature 97.9. HEENT: Head is normocephalic. NECK: Supple. HEART: Regular rate. LUNGS: Show diminished breath sounds at the base. ABDOMEN: Soft, nontender to palpation. No rebound or guarding. EXTREMITIES: Negative for clubbing, cyanosis. No edema. DERMATOLOGIC: No rashes. NEUROLOGIC: No change in exam. MEDICATIONS: Reviewed. LABORATORY DATA: Shows white count of 8.3, hemoglobin 8.6, platelet count 219. Sodium 137, potassiu m ____, BUN 24, creatinine 3.62. ASSESSMENT AND PLAN: 1. End-stage renal disease. The patient is scheduled for dialysis today. Will dialyze 3 hours 2 K bath, calcium 2.5. 2. Mineral bone disorder. Monitor calcium and phosphorus levels. 3. Vitamin D analogs. Continue phosphate binders. 4. Anemia. Monitor hemoglobin and hematocrit levels. Continue Epogen. 5. Volume overload, improving. 6. Cirrhosis, status post spontaneous bacterial peritonitis. The patient has completed antibiotic c ourse. 7. Diarrhea. The patient has been ruled out for Clostridium difficile. Continue to monitor. 8. Hypertension. Continue current blood pressure regimen. 9. Gastritis. Continue proton pump inhibitor. 10. Depressive disorder. Continue Seroquel. Dictated By: SHILO REICH/NTS Conf#: [id number] DID#: [id number] CC: JF KAISER MD;*EndCC*
--- NOTE | 2018-04-17 10:47 | NUR ---
Pt left via [place] via ambulance, reported given to receiving facility.
== END 2018-04-17 10:05 | DRG 981 ==
LOC: E/R 12:54 → 2NE 14:01 → 5EC 03-17 00:09 → TEL 03-19 18:05 → PP2 03-26 18:44 → 5EC 03-27 18:39
PROVIDERS: ADMIT Internal Medicine; ATTEND Internal Medicine
PROC: 02H633Z Insertion of Infusion Device into Right Atrium, Percutaneous Approach (ICD-10-PCS; 2018-03-18)
PROC: 5A1D70Z Performance of Urinary Filtration, Intermittent, Less than 6 Hours Per Day (ICD-10-PCS; 2018-03-18)
PROC: 0W9G3ZZ Drainage of Peritoneal Cavity, Percutaneous Approach (ICD-10-PCS; 2018-03-19)
PROC: 03WY0JZ Revision of Synthetic Substitute in Upper Artery, Open Approach (ICD-10-PCS; 2018-03-20 12:30)
PROC: 05780ZZ Dilation of Left Axillary Vein, Open Approach (ICD-10-PCS; 2018-03-20 12:30)
PROC: 0FC98ZZ Extirpation of Matter from Common Bile Duct, Via Natural or Artificial Opening Endoscopic (ICD-10-PCS; principal; 2018-03-21)
PROC: 0F798DZ Dilation of Common Bile Duct with Intraluminal Device, Via Natural or Artificial Opening Endoscopic (ICD-10-PCS; 2018-03-21)
PROC: BF10YZZ Fluoroscopy of Bile Ducts using Other Contrast (ICD-10-PCS; 2018-03-21)
PROC: 30233N1 Transfusion of Nonautologous Red Blood Cells into Peripheral Vein, Percutaneous Approach (ICD-10-PCS; 2018-03-21)
PROC: 0W9G3ZZ Drainage of Peritoneal Cavity, Percutaneous Approach (ICD-10-PCS; 2018-03-26)
PROC: 05PYX3Z Removal of Infusion Device from Upper Vein, External Approach (ICD-10-PCS; 2018-03-30)
PROC: 0JH63XZ Insertion of Tunneled Vascular Access Device into Chest Subcutaneous Tissue and Fascia, Percutaneous Approach (ICD-10-PCS; 2018-03-30)
PROC: 02H633Z Insertion of Infusion Device into Right Atrium, Percutaneous Approach (ICD-10-PCS; 2018-03-30)
PROC: B214YZZ Fluoroscopy of Right Heart using Other Contrast (ICD-10-PCS; 2018-03-30)
PROC: 0W9G3ZZ Drainage of Peritoneal Cavity, Percutaneous Approach (ICD-10-PCS; 2018-03-30)
PROC: 0W9G3ZZ Drainage of Peritoneal Cavity, Percutaneous Approach (ICD-10-PCS; 2018-04-13)
DX: K80.50 Calculus of bile duct without cholangitis or cholecystitis without obstruction (principal); K65.2 Spontaneous bacterial peritonitis; L89.153 Pressure ulcer of sacral region, stage 3; N18.6 End stage renal disease; R18.8 Other ascites; I12.0 Hypertensive chronic kidney disease with stage 5 chronic kidney disease or end stage renal disease; G93.40 Encephalopathy, unspecified; T82.868A Thrombosis due to vascular prosthetic devices, implants and grafts, initial encounter; D63.1 Anemia in chronic kidney disease; E87.5 Hyperkalemia; E87.70 Fluid overload, unspecified; E11.22 Type 2 diabetes mellitus with diabetic chronic kidney disease; F41.9 Anxiety disorder, unspecified; F31.9 Bipolar disorder, unspecified; F29 Unspecified psychosis not due to a substance or known physiological condition; G40.909 Epilepsy, unspecified, not intractable, without status epilepticus; I51.7 Cardiomegaly; K74.60 Unspecified cirrhosis of liver; K29.70 Gastritis, unspecified, without bleeding; R19.7 Diarrhea, unspecified; X58.XXXA Exposure to other specified factors, initial encounter; Z99.2 Dependence on renal dialysis; Z87.891 Personal history of nicotine dependence
CPT/HCPCS: 36415; 36430; 71045; 74181; 74330; 76705; 80048; 80053; 80076; 80202; 82150; 82270; 82306; 82607; 82652; 82728; 82746; 82962; 83540; 83690; 83735; 83970; 84100; 84132; 84703; 85014; 85018; 85025; 85045; 85610; 85730; 86704; 86709; 86803; 86850; 86900; 86901; 86920; 87070; 87075; 87081; 87102; 87116; 87340; 88104; 88305; 89051; 90935; 93931; 97110; 97116; 97161; 97165; 97530; C1752; C2617; J0360; J0690; J0696; J1170; J1200; J1610; J1644; J1815; J2250; J2270; J2274; J2405; J2710; J2916; J2997; J3010; J3370; J7040; J7070; P9016; P9047; Q4081; Q9967

== ENCOUNTER 2018-04-24 16:26 | Emergency (ER) | payer OTHER ==
[~2018-04-24] VITALS: Ht 162.6 cm; Wt 50.0 kg
[~2018-04-24 16:26] MED LIST changes: -FURO40TA4 PO
[2018-04-24 16:42] VITALS: Ht 162.6 cm; Wt 50.0 kg
[2018-04-24] MEDS ORDERED: ONDANSETRON 4 MG INJ IV STA (16:43)
[2018-04-24] MEDS ORDERED: morphine 4 MG/ML VIAL IV STA (16:43)
[2018-04-24] MEDS ORDERED: ACET325T45 PO (17:35)
[2018-04-24] MEDS ORDERED: LUBI24CA7 PO (17:36)
[2018-04-24] MEDS ORDERED: BEN25 PO (17:36)
[2018-04-24] MEDS ORDERED: CALC0.5C10 PO (17:37)
[2018-04-24] MEDS ORDERED: BUSP5TAB2 PO (17:37)
[2018-04-24] MEDS ORDERED: CITA20TA11 PO (17:38)
[2018-04-24] MEDS ORDERED: CLON-379 PO (17:39)
[2018-04-24] MEDS ORDERED: EPO10ESRD SC (17:40)
[2018-04-24] MEDS ORDERED: LOPE2CAP PO (17:41)
[2018-04-24] MEDS ORDERED: HYDR-3671 PO (17:41)
[2018-04-24] MEDS ORDERED: LEVE-5 PO (17:41)
[2018-04-24] MEDS ORDERED: HYDR-3980 PO (17:43)
[2018-04-24] MEDS ORDERED: LABE200T25 PO (17:43)
[2018-04-24] MEDS ORDERED: OMEP20CA16 PO (17:44)
[2018-04-24] MEDS ORDERED: NIFE30TA2 PO (17:45)
[2018-04-24] MEDS ORDERED: QUET300T2 PO (17:46)
[2018-04-24] MEDS ORDERED: NEPH PO (17:46)
[2018-04-24] MEDS ORDERED: SEVE0.8P PO (17:47)
[2018-04-24] MEDS ORDERED: VANCOMYCIN HCL PO (17:52)
[2018-04-24] MEDS ORDERED: ASCO250T96 PO (17:53)
[2018-04-24] MEDS ORDERED: CHOL100062 PO (17:54)
[2018-04-24] MEDS ORDERED: ONDA4TAB8 PO (17:55)
[2018-04-24] MEDS ORDERED: ZINC220C5 PO (17:55)
[2018-04-24] MEDS ORDERED: FAMOTIDINE 20 MG INJ IV STA (18:43)
[2018-04-24] MEDS ORDERED: LIDOCAINE/MYLANTA 40 ML BTL PO STA (18:43)
[2018-04-24] MEDS ORDERED: BELLADONNA/PHENOBARBITAL TAB PO STA (18:43)
[2018-04-24] MEDS ORDERED: LABETALOL HCL 20MG INJ IV ONE (19:00)
[2018-04-24] MEDS ORDERED: DICYCLOMINE 20 MG INJ IM ONE (19:00)
[2018-04-24] MEDS ORDERED: DIPHENHYDRAMINE 50 MG CAP PO ONE (20:00)
--- NOTE | 2018-04-24 20:15 | ERD ---
ER Documentation Chief Complaint Chief Complaint BIB RA FROM SNF FOR EVAL OF AP X 2 DAYS. HPI This is a 52-year-old female history of end-stage renal disease on dialysis who completed dialysis today and had an exacerbation of abdominal pain. Initially the patient reported epigastric abdominal discomfort. Later it was apparent marie t the patient has a history of chronic abdominal pain. This is consistent with chronic abdominal pain. The pain is reported to be 8 out of 10 without associated nausea vomiting or diarrhea. ROS All systems reviewed and are negative except as per history of present illness. Medications Home Meds Reported Medications Ondansetron Hcl* (Zofran*) 4 Mg Tablet, 4 MG PO Q6H PRN for NAUSEA AND OR VOMITING, TAB 04/24/18 Zinc Sulfate* (Zinc Sulfate*) 220 Mg Cap, 220 MG PO DAILY for FOR 14 DAYS, CAP 04/24/18 Cholecalciferol* (Vitamin D3*) 1,000 Unit Tablet, 2000 UNIT PO DAILY, TAB 04/24/18 Ascorbic Acid (Vitamin C) 250 Mg Tab, 250 MG PO DAILY for FOR 14 DAYS, TAB 04/24/18 [Vancomycin Hcl Susp] No Conflict Check, 5 ML PO Q6H 50MG/ML TAKE 5ML-Q6H UNTIL 05/19/18 04/24/18 Sevelamer Carbonate* (Renvela*) 0.8 Gm Powd.pack, 1.6 GM PO WITH MEALS, PACKET 04/24/18 Quetiapine Fumarate* (Seroquel*) 300 Mg Tablet, 300 MG PO HS, TAB 04/24/18 Multivit/Ca Carb/B Cmplx/Fa* (Alena-Martin*) 1 Tab Tab, 1 TAB PO DAILY, TAB 04/24/18 Nifedipine (Procardia Xl) 30 Mg Tab.er.24, 30 MG PO DAILY PRN for HTN, TAB IF SBP<110 OR HR<60 04/24/18 Omeprazole* (Omeprazole*) 20 Mg Capsule.dr, 20 MG PO DAILY, #30 CAP 04/24/18 Hydrocodone/Acetaminophen ([place] 10-325 Tablet) 1 Each Tablet, 1 EACH PO Q6H PRN for PAIN 6-12/30, TAB 04/24/18 Labetalol Hcl* (Labetalol Hcl*) 200 Mg Tablet, 200 MG PO BID, TAB FOR HTN HOLD IF SBP<110 OR HR<60 04/24/18 Levetiracetam* (Keppra*) 500 Mg Tablet, 500 MG PO BID, TAB 04/24/18 Loperamide Hcl* (Imodium*) 2 Mg Capsule, 2 MG PO Q6H PRN for DIARRHEA, CAP MAX 16 mg/day 04/24/18 Hydralazine Hcl* (Hydralazine Hcl*) 25 Mg Tab, 25 MG PO Q6H PRN for HTN IF SBP> 170, #60 TAB 04/24/18 Epoetin [place] (Epogen) 10,000 Units/Ml Soln, 1 ML SC Q MON,WED,FRI, VIAL 04/24/18 Clonidine Hcl* (Clonidine Hcl*) 0.1 Mg Tab, 0.1 MG PO Q6 PRN for HTN WHEN SBP>160, TAB 04/24/18 Citalopram Hydrobromide* (Celexa*) 20 Mg Tablet, 20 MG PO DAILY, #30 TAB 04/24/18 Calcitriol* (Calcitriol*) 0.5 Mcg Capsule, 0.5 MCG PO DAILY, CAP 04/24/18 Buspirone Hcl* (Buspirone Hcl*) 5 Mg Tab, 5 MG PO BID, TAB 04/24/18 Diphenhydramine Hcl* (Benadryl*) 25 Mg Cap, 50 MG PO Q6H PRN for ITCHING, CAP 04/24/18 Lubiprostone* (Amitiza*) 24 Mcg Capsule, 24 MCG PO BID, #60 CAP 04/24/18 Acetaminophen* (Acetaminophen*) 325 Mg Tablet, 650 MG PO Q6H PRN for PAIN - 07/30, #30 TAB AND FEVER>100.2 04/24/18 Discontinued Reported Medications Calcitriol* (Calcitriol*) 0.25 Mcg Capsule, 0.25 MG PO DAILY for 30 Days TAKE ONE CAPSULE BY MOUTH EVERYDAY 03/01/18 Quetiapine Fumarate* (Seroquel*) 300 Mg Tablet, 300 MG PO DAILY, TAB 12/07/17 Pantoprazole* (Protonix*) 40 Mg Tablet.dr, 40 MG PO AC BREAKFAST, TAB 12/07/17 Levetiracetam* (Keppra*) 500 Mg Tablet, 500 MG PO BID, TAB 12/07/17 Discontinued Scripts Diphenhydramine Hcl* (Benadryl*) 25 Mg Cap, 25 MG PO Q6H PRN for ITCHING, #30 CAP Prov:BLAKE MORALES 12/10/17 Labetalol Hcl* (Labetalol Hcl*) 100 Mg Tablet, 200 MG PO BID for 30 Days, TAB Prov:MARILYN MORALESA 12/10/17 Nifedipine (Procardia Xl) 30 Mg Tab.er.24, 30 MG PO DAILY for 30 Days, TAB Prov:BLAKE MORALES 12/10/17 Sevelamer Carbonate* (Renvela*) 800 Mg Tablet, 1600 MG PO WITH MEALS for 30 Days, TAB Prov:GERMAN MORALESLANA 12/10/17 Allergies Allergies: Coded Allergies: No Known Allergy (Unverified , 04/24/18) PMhx/Soc History of Surgery: Yes (c section x5) Anesthesia Reaction: No Hx Neurological Disorder: Yes (neuropaty) Hx Respiratory Disorders: No Hx Cardiac Disorders: Yes (HTN) Hx Psychiatric Problems: Yes (Bipolar , DEPRESSION ) Hx Miscellaneous Medical Probl: Yes (ESRD , ANEMIA , ANXIETY ) Hx Alcohol Use: No Hx Substance Use: No Hx Tobacco Use: No Smoking Status: Never smoker FmHx Family History: No diabetes Physical Exam Vitals Vital Signs Date Temp Pulse Resp B/P (MAP) Pulse Ox O2 O2 Flow FiO2 Time Delivery Rate 04/24/18 93 18 212/117 98 Room Air 17:29 (148) 04/24/18 98.0 96 20 216/112 96 16:42 (146) Physical Exam General: Uncomfortable, thin cachectic female Head: Normocephalic, atraumatic. Eyes: Pupils equally reactive, EOM intact ENT: Moist mucous membranes Neck: Supple, no lymphadenopathy Respiratory: Lungs clear bilaterally, no distress Cardiovascular: RRR, no murmurs, rubs, or gallops Abdominal: Soft, mild epigastric abdominal tenderness with negative Bentley sign, no tenderness to McBurney's point : Deferred MSK: No edema, no unilateral swelling, 5/5 strength Neurologic: Alert and oriented, moving all extremities, normal speech, no focal weakness, no cerebellar signs Skin: No rash Psych: Normal mood Result Diagram: 04/24/18 1651 04/24/18 1651 Results 24 hrs Laboratory Tests Test 04/24/18 16:51 White Blood Count 7.5 10^3/ul Red Blood Count 3.71 10^6/ul Hemoglobin 9.1 g/dl Hematocrit 29.2 % Mean Corpuscular Volume 78.7 fl Mean Corpuscular Hemoglobin 24.5 pg Mean Corpuscular Hemoglobin Concent 31.2 g/dl Red Cell Distribution Width 18.9 % Platelet Count 282 10^3/UL Mean Platelet Volume 9.1 fl Immature Granulocytes % 0.300 % Neutrophils % 65.8 % Lymphocytes % 18.4 % Monocytes % 6.0 % Eosinophils % 7.9 % Basophils % 1.6 % Nucleated Red Blood Cells % 0.0 /100WBC Immature Granulocytes # 0.020 10^3/ul Neutrophils # 4.9 10^3/ul Lymphocytes # 1.4 10^3/ul Monocytes # 0.5 10^3/ul Eosinophils # 0.6 10^3/ul Basophils # 0.1 10^3/ul Nucleated Red Blood Cells # 0.0 10^3/ul Prothrombin Time 11.9 Sec Prothrombin Time Ratio 0.9 INR International Normalized Ratio 0.87 Activated Partial Thromboplast Time 29.8 Sec Sodium Level 143 mmol/L Potassium Level 5.2 mmol/L Chloride Level 106 mmol/L Carbon Dioxide Level 23 mmol/L Anion Gap 14 Blood Urea Nitrogen 38 mg/dl Creatinine 5.92 mg/dl Est Glomerular Filtrat Rate mL/min 9 mL/min Glucose Level 122 mg/dl Calcium Level 9.8 mg/dl Total Bilirubin 0.0 mg/dl Direct Bilirubin 0.00 mg/dl Indirect Bilirubin 0.0 mg/dl Aspartate Amino Transf (AST/SGOT) 48 IU/L Alanine Aminotransferase (ALT/SGPT) 16 IU/L Alkaline Phosphatase 171 IU/L Total Protein 7.8 g/dl Albumin 3.5 g/dl Globulin 4.30 g/dl Albumin/Globulin Ratio 0.81 Lipase 102 U/L Current Medications Medications Dose Sig/Rolando Start Time Status Last (Trade) Ordered Route PRN Stop Time Admin Dose Reason Admin Morphine 4 mg ONCE STAT 04/24/18 DC 04/24/18 Sulfate IV 16:43 04/24/18 17:03 (morphine) 16:45 Ondansetron 4 mg ONCE STAT 04/24/18 DC 04/24/18 HCl (Zofran IV 16:43 04/24/18 17:03 Inj) 16:45 Labetalol 20 mg ONCE ONCE 04/24/18 DC 04/24/18 HCl IV 19:00 04/24/18 18:55 (Labetalol) 19:01 Famotidine 20 mg ONCE STAT 04/24/18 DC 04/24/18 (Pepcid Iv) IV 18:43 04/24/18 18:54 18:45 40 ml ONCE STAT 04/24/18 DC 04/24/18 Miscellaneous PO 18:43 04/24/18 18:53 Medication 18:45 (Gi Cocktail (2)) Belladonna/ 2 tab ONCE STAT 04/24/18 DC 04/24/18 Phenobarbital PO 18:43 04/24/18 18:54 () 18:45 Dicyclomine 10 mg ONCE ONCE 04/24/18 DC 04/24/18 HCl IM 19:00 04/24/18 19:27 (Bentyl) 19:01 50 mg ONCE ONCE 04/24/18 DC 04/24/18 Diphenhydrami PO 20:00 04/24/18 20:00 ne HCl 20:01 (Benadryl) Procedures/MDM EKG, MONITORS, & DIAGNOSTIC IMAGING: EKG: I reviewed and interpreted a 12-lead EKG. Rhythm: Normal sinus rhythm ST Changes: No contiguous ST segment elevations T waves: No contiguous T wave inversions Impression: No evidence of acute cardiac ischemia CT a/p IMPRESSION: 1. Cardiomegaly with mild lower lung pulmonary edema along and a small left effusion, minimally increased. 2. Mild generalized small and large bowel wall thickening could represent edema related to third spacing, similar to prior exam. 3. Atherosclerotic disease is present. 4. Hepatomegaly. 5. Moderate ascites, minimally increased. 6. Interval placement of CBD stent. RPTAT: QQ LAB INTERPRETATION: * No evidence of infectious process, mild anemia * End-stage renal disease with only borderline potassium of 5.2 MEDICAL DECISION MAKING: Patient presents with abdominal pain. It is soon apparent that the patient has a history of chronic abdominal pain and raises the concern for possible drug- seeking behavior. The patient is asking for IV Benadryl and I do not feel this is appropriate. The patient will benefit from laboratory testing and diagnostic imaging as well as blood pressure control. The blood pressure is elevated but I do not believe this is consistent with acute aortic process. The patient has chronic abdominal pain and this is consistent with her chronic abdominal pain. ER COURSE: * Laboratory testing is reassuring. The patient did receive 1 dose of narcotic pain medication. She is asking for more which I do believe is appropriate. Patient will be given a GI cocktail and nonnarcotic pain medications. * The patient needs to follow up with pmd and needs to see a pain medicine physician. * Labetalol given, blood pressure improving CONSULTATION: None DISPOSITION PLAN: The patient does not have an identifiable emergent medical condition that warrants inpatient hospitalization at this time. The patient is deemed safe for discharge with outpatient follow-up. We discussed follow up with the patient's primary care doctor within 24 to 48 hours as needed. We also discussed return to the emergency room for worsening symptoms or worsening condition. Outpatient referral: Pain medicine Departure Diagnosis: Primary Impression: Chronic abdominal pain Additional Impressions: Hypertensive urgency ESRD on hemodialysis Condition: Stable Patient Instructions: Abdominal Pain, Unknown Cause, (Female), Chronic Pain Referrals: MICHELE FRANCO MD, ANTHONY Jr., BOBBI MCDONALD MD [facility] YOU HAVE RECEIVED A MEDICAL SCREENING EXAM AND THE RESULTS INDICATE THAT YOU DO NOT HAVE A CONDITION THAT REQUIRES URGENT TREATMENT IN THE EMERGENCY DEPARTMENT. FURTHER EVALUATION AND TREATMENT OF YOUR CONDITION CAN WAIT UNTIL YOU ARE SEEN IN YOUR DOCTORS OFFICE WITHIN THE NEXT 1-2 DAYS. IT IS YOUR RESPONSIBILITY TO MAKE AN APPOINTMENT FOR FOLOW-UP CARE. IF YOU HAVE A PRIMARY DOCTOR --you should call your primary doctor and schedule an appointment IF YOU DO NOT HAVE A PRIMARY DOCTOR YOU CAN CALL OUR PHYSICIAN REFERRAL HOTLINE AT IF YOU CAN NOT AFFORD TO SEE A PHYSICIAN YOU CAN CHOSE FROM THE FOLLOWING [facility] [address] [facility]. [facility] [address] [facility]. [facility] [address] [facility]. [facility] [address] [facility]. [facility] [address] [facility]. [facility]. [address] [facility]. [facility] YOU HAVE RECEIVED A MEDICAL SCREENING EXAM AND THE RESULTS INDICATE THAT YOU DO NOT HAVE A CONDITION THAT REQUIRES URGENT TREATMENT IN THE EMERGENCY DEPARTMENT. FURTHER EVALUATION AND TREATMENT OF YOUR CONDITION CAN WAIT UNTIL YOU ARE SEEN IN YOUR DOCTORS OFFICE WITHIN THE NEXT 1-2 DAYS. IT IS YOUR RESPONSIBILITY TO MAKE AN APPOINTMENT FOR FOLOW-UP CARE. IF YOU HAVE A PRIMARY DOCTOR --you should call your primary doctor and schedule and appointment IF YOU DO NOT HAVE A PRIMARY DOCTOR YOU CAN CALL OUR PHYSICIAN REFERRAL HOTLINE AT . IF YOU CAN NOT AFFORD TO SEE A PHYSICIAN YOU CAN CHOSE FROM THE FOLLOWING [facility] INSTITUTIONS: [facility] [address] [place] [address] [facility] [address] [place] [address] [facility] [address] [place] [address] Additional Instructions: Call your primary care doctor TOMORROW for an appointment during the next 1 WEEK.Tell the outpatient coder that you were referred from this facility.See the doctor sooner or return here if your condition worsens before your appointment time. AQUILINO ENGLE MD Apr 24, 2018 20:14
[2018-04-24] MEDS ORDERED: hydrALAzine 20 MG INJ IV ONE (22:00)
[2018-04-24 22:07] VITALS: BP 175/60; PULSE 87; RESP 16
== END 2018-04-24 22:09 | disposition home or self-care (01) ==
LOC: E/R 16:26
DX: I16.0 Hypertensive urgency (principal); I12.0 Hypertensive chronic kidney disease with stage 5 chronic kidney disease or end stage renal disease; N18.6 End stage renal disease; Z99.2 Dependence on renal dialysis
CPT/HCPCS: 36415; 74176; 80053; 83690; 85025; 85610; 85730; 93005; 96372; 96374; 96375; J0360; J0500; J2270; J2405; Z7502; Z7610